=== PATIENT | male | born 1945 | race Caucasian/White ===

== ENCOUNTER 2016-07-17 11:51 | Observation (INO) | payer MEDICARE ==
[2016-07-17] MEDS ORDERED: SODIUM CHLORIDE 0.9% 1,000 ML IV STA (13:16)
[2016-07-17] MEDS ORDERED: IPRATROPIUM-ALBUTEROL 3 ML NEB INHALATION STA ×2 (13:19→15:30)
[2016-07-17] MEDS ORDERED: methylPREDNISolone SOD SUCCI 125 MG/2 ML VIAL IV STA ×2 (13:19→15:33)
--- NOTE | 2016-07-17 13:55 | ED ---
General Adult HPI - General Chief complaint: Shortness of Breath Stated complaint: GIL Time Seen by Provider: 07/17/16 12:55 Source: patient, RN notes reviewed Mode of arrival: ambulatory Limitations: no limitations - History of Present Illness Initial comments: Patient 70-year-old male who presents emergency room today with a chief complaint of increased shortness of breath. Patient does admit that he's had cough congestion over the last several weeks. He does admit to positive sputum production it's been green in color. Patient does admit that he has had symptoms of chest pain with the shortness breath at times. Denies any chest pain at this time. Patient denies any complaints currently at this time. Patient states he began using breathing treatments at home over the weekend with little relief the symptoms. Was advised by his family doctor if symptoms did not improve with breathing treatments to come to the emergency room. Patient denies any recent fever, chills, back pain, abdominal pain, nausea or vomiting, numbness or tingling, dysuria or hematuria, constipation or diarrhea, headaches or visual changes, or any other complaints. - Related Data Home Medications Medication Instructions Recorded Confirmed Aspirin 81 mg PO DAILY 07/17/16 07/17/16 Atorvastatin [Lipitor] 20 mg PO DAILY 07/17/16 07/17/16 Budesonide-Formot 160-4.5 Mcg 2 puff INHALATION RT-BID 07/17/16 07/17/16 [Symbicort 160-4.5 Mcg Inhaler] Metoprolol Tartrate [Metoprolol 25 mg PO DAILY 07/17/16 07/17/16 Tartrate] Allergies Allergy/AdvReac Type Severity Reaction Status Date / Time No Known Allergies Allergy Verified 07/17/16 12:42 Review of Systems ROS Statement: Those systems with pertinent positive or pertinent negative responses have been documented in the HPI. ROS Other: All systems not noted in ROS Statement are negative. Past Medical History Past Medical History: Chest Pain / Angina, COPD, Hyperlipidemia Additional Past Medical History / Comment(s): SVT History of Any Multi-Drug Resistant Organisms: None Reported Past Surgical History: Back Surgery, Joint Replacement Past Psychological History: No Psychological Hx Reported Smoking Status: Current every day smoker Past Alcohol Use History: Rare Past Drug Use History: None Reported General Exam - General Exam Comments Initial Comments: General: The patient is awake and alert, in no distress, and does not appear acutely ill. Eye: Pupils are equal, round and reactive to light, extra-ocular movements are intact. No nystagmus. There is normal conjunctiva bilaterally. No signs of icterus. Ears, nose, mouth and throat: There are moist mucous membranes and no oral lesions. Neck: The neck is supple, there is no tenderness or JVD. Cardiovascular: There is a regular rate and rhythm. No murmur, rub or gallop is appreciated. Respiratory: Lungs are clear to auscultation, respirations are non-labored, breath sounds are equal. No wheezes, stridor, rales, or rhonchi. Musculoskeletal: Normal ROM, no tenderness. Strength 5/5. Sensation intact. Pulses equal bilaterally 2+. Neurological: A&O x 3. CN II-XII intact, There are no obvious motor or sensory deficits. Coordination appears grossly intact. Speech is normal. Skin: Skin is warm and dry and no rashes or lesions are noted. Psychiatric: Cooperative, appropriate mood & affect, normal judgment. Limitations: no limitations Course Vital Signs 07/17/16 07/17/16 07/17/16 12:36 13:33 13:45 Temperature 97.5 F L Pulse Rate 70 68 69 Respiratory 22 Rate Blood Pressure 150/67 O2 Sat by Pulse 93 L Oximetry 07/17/16 13:57 Temperature Pulse Rate Respiratory 20 Rate Blood Pressure O2 Sat by Pulse Oximetry EKG Findings - EKG Comments: EKG Findings:: EKG performed at 1326: Shows sinus rhythm with first-degree AV block at 67 bpm. GA interval is 212. QRS 90. QT/QTC 372/393. No acute ST change. Medical Decision Making - Medical Decision Making The patient reexamined at this time shows no signs of stress currently. Does admit the breathing treatment has helped some of his symptoms is still having some cough congestion. Patient's x-ray reviewed shows no evidence for pneumonia. Patient given repeat breathing treatment still some somatic doesn't feel comfortable being discharged. Will be admitted for COPD exacerbation. Case discussed with attending physician Dr. Quick. - Lab Data Result diagrams: 07/17/16 13:57 07/17/16 13:57 Lab Results 07/17/16 07/17/16 07/17/16 Range/Units 13:57 13:57 13:57 WBC 9.9 (3.8-10.6) k/uL RBC 4.59 (4.30-5.90) m/uL Hgb 14.1 (13.0-17.5) gm/dL Hct 43.1 (39.0-53.0) % MCV 93.9 (80.0-100.0) fL MCH 30.7 (25.0-35.0) pg MCHC 32.7 (31.0-37.0) g/dL RDW 13.9 (11.5-15.5) % Plt Count 282 (150-450) k/uL Neutrophils % 66 % Lymphocytes % 21 % Monocytes % 7 % Eosinophils % 1 % Basophils % 1 % Neutrophils # 6.5 (1.3-7.7) k/uL Lymphocytes # 2.1 (1.0-4.8) k/uL Monocytes # 0.7 (0-1.0) k/uL Eosinophils # 0.1 (0-0.7) k/uL Basophils # 0.1 (0-0.2) k/uL PT (9.0-12.0) sec INR (<1.1) APTT (22.0-30.0) sec Sodium 142 (137-145) mmol/L Potassium 4.7 (3.5-5.1) mmol/L Chloride 103 (98-107) mmol/L Carbon Dioxide 27 (22-30) mmol/L Anion Gap 12 mmol/L BUN 16 (9-20) mg/dL Creatinine 0.92 (0.66-1.25) mg/dL Est GFR (MDRD) Af Amer >60 (>60 ml/min/1.73 sqM) Est GFR (MDRD) Non-Af >60 (>60 ml/min/1.73 sqM) Glucose 112 H (74-99) mg/dL Calcium 9.6 (8.4-10.2) mg/dL Magnesium 2.4 H (1.6-2.3) mg/dL Total Bilirubin 0.5 (0.2-1.3) mg/dL AST 30 (17-59) U/L ALT 50 (21-72) U/L Alkaline Phosphatase 98 (38-126) U/L Total Creatine Kinase 71 (55-170) U/L CK-MB (CK-2) 0.7 (0.0-2.4) ng/mL CK-MB (CK-2) Rel Index 1.0 Troponin I <0.012 (0.000-0.034) ng/mL Total Protein 7.4 (6.3-8.2) g/dL Albumin 3.9 (3.5-5.0) g/dL 07/17/16 Range/Units 13:57 WBC (3.8-10.6) k/uL RBC (4.30-5.90) m/uL Hgb (13.0-17.5) gm/dL Hct (39.0-53.0) % MCV (80.0-100.0) fL MCH (25.0-35.0) pg MCHC (31.0-37.0) g/dL RDW (11.5-15.5) % Plt Count (150-450) k/uL Neutrophils % % Lymphocytes % % Monocytes % % Eosinophils % % Basophils % % Neutrophils # (1.3-7.7) k/uL Lymphocytes # (1.0-4.8) k/uL Monocytes # (0-1.0) k/uL Eosinophils # (0-0.7) k/uL Basophils # (0-0.2) k/uL PT 10.5 (9.0-12.0) sec INR 1.0 (<1.1) APTT 26.0 (22.0-30.0) sec Sodium (137-145) mmol/L Potassium (3.5-5.1) mmol/L Chloride (98-107) mmol/L Carbon Dioxide (22-30) mmol/L Anion Gap mmol/L BUN (9-20) mg/dL Creatinine (0.66-1.25) mg/dL Est GFR (MDRD) Af Amer (>60 ml/min/1.73 sqM) Est GFR (MDRD) Non-Af (>60 ml/min/1.73 sqM) Glucose (74-99) mg/dL Calcium (8.4-10.2) mg/dL Magnesium (1.6-2.3) mg/dL Total Bilirubin (0.2-1.3) mg/dL AST (17-59) U/L ALT (21-72) U/L Alkaline Phosphatase (38-126) U/L Total Creatine Kinase (55-170) U/L CK-MB (CK-2) (0.0-2.4) ng/mL CK-MB (CK-2) Rel Index Troponin I (0.000-0.034) ng/mL Total Protein (6.3-8.2) g/dL Albumin (3.5-5.0) g/dL Disposition Clinical Impression: COPD exacerbation, Hypoxia Disposition: ADMITTED IP TO THIS HOSP Condition: Stable Time of Disposition: 15:13
[2016-07-17 14:20] LABS: Basophils # (A) 0.1 k/uL (0-0.2); Basophils % (A) 1 %; CHCM 33.1; Eosinophils # (A) 0.1 k/uL (0-0.7); Eosinophils % (A) 1 %; HCT 43.1 % (39.0-53.0); HGB 14.1 gm/dL (13.0-17.5); Luc # (Auto) 0.43; Luc % (Auto) 4; Lymphocytes # (A) 2.1 k/uL (1.0-4.8); Lymphocytes % (A) 21 %; MCH 30.7 pg (25.0-35.0); MCHC 32.7 g/dL (31.0-37.0); MCV 93.9 fL (80.0-100.0); Mean Platelet Volume 7.7; Monocytes # (A) 0.7 k/uL (0-1.0); Monocytes % (A) 7 %; Neutrophils # (A) 6.5 k/uL (1.3-7.7); Neutrophils % (A) 66 %; RBC 4.59 m/uL (4.30-5.90); RDW 13.9 % (11.5-15.5); WBC 9.9 k/uL (3.8-10.6)
--- NOTE | 2016-07-17 14:24 | XR ---
EXAMINATION TYPE: XR chest 2V DATE OF EXAM: 07/17/2016 2:07 PM COMPARISON: Prior chest x-ray 31 Aug 2012, at 05 March 2016 HISTORY: Chest pain, shortness of breath, COPD TECHNIQUE: Frontal and lateral views of the chest are obtained on 3 images. FINDINGS: Prominent lung volumes compatible with underlying emphysema. The aorta is dense. No pneumo thorax or pleural effusion. Interstitium is increased. Biapical pleural thickening is present. Osteon ecrosis changes are present within the humeral heads, finding is chronic. There are overlying cardiac leads. IMPRESSION: No acute cardiopulmonary process.
[2016-07-17 14:31] LABS: ALT 50 U/L (21-72); AST 30 U/L (17-59); Alkaline Phosphatase 98 U/L (38-126); Anion Gap 12 mmol/L; Blood Urea Nitrogen 16 mg/dL (9-20); Calcium 9.6 mg/dL (8.4-10.2); Carbon Dioxide 27 mmol/L (22-30); Chloride 103 mmol/L (98-107); Glucose 112 mg/dL (74-99); Magnesium 2.4 mg/dL (1.6-2.3); Non-African American GFR(MDRD) >60 (>60 ml/min/1.73 sqM); Potassium 4.7 mmol/L (3.5-5.1); Sodium 142 mmol/L (137-145); Total Bilirubin 0.5 mg/dL (0.2-1.3); Total Protein 7.4 g/dL (6.3-8.2)
[2016-07-17 14:34] LABS: Prothrombin Time 10.5 sec (9.0-12.0)
[2016-07-17 14:41] LABS: Creatine Kinase 71 U/L (55-170)
[2016-07-17 14:54] LABS: Creatine Kinase MB 0.7 ng/mL (0.0-2.4); Troponin I <0.012 ng/mL (0.000-0.034)
[2016-07-17] MEDS ORDERED: SODIUM CHLORIDE 0.9% 1,000 ML IV ONE (15:33)
[2016-07-17] MEDS: LEVOFLOXACIN 500 MG TAB PO SCH (17:14)
[2016-07-17] MEDS: methylPREDNISolone SOD SUCCI 125 MG/2 ML VIAL IV SCH (17:15)
[2016-07-17] MEDS: SYMBICORT 160-4.5 MCG INHALER INHALATION SCH (20:06)
[2016-07-17] MEDS: NICOTINE 21MG/24HR PATCH TRANSDERM SCH (21:21)
[2016-07-18] MEDS: methylPREDNISolone SOD SUCCI 125 MG/2 ML VIAL IV SCH ×5 (06:12→23:34)
[2016-07-18 06:52] LABS: Glucose,Whole Blood 146 mg/dL (75-99)
--- NOTE | 2016-07-18 07:38 | HP ---
DATE OF ADMISSION: CHIEF COMPLAINT: Shortness of breath. HISTORY OF PRESENT ILLNESS: Mr. Golden is a 70-year-old male with known history of COPD, active nicotine addiction 2 packs per day and hyperlipidemia and history of SVT came to the hospital with complaints of increased shortness of breath for the past 2 weeks and patient does have a cough with congestion over the last 2 weeks and sputum production which is green to yellowish in color. The patient continues to smoke about 2 packs per day. Patient follows with Dr. Robison as an outpatient. Patient began using breathing treatments at home over the weekend, but without relief of his symptoms. Patient came to the ER for further evaluation. Otherwise, the patient denied any fever or chills. No recent illnesses like ( ) symptoms and no recent travel. No sick contacts at home. Denied any nausea, vomiting or abdominal pain. No hematuria or dysuria. No diarrhea. No other issues noted at this time. In the ER, the patient was given breathing treatments and steroids IV. Patient clinically slightly improved. Otherwise, patient does have significant wheezing and was admitted to the hospital for further management. REVIEW OF SYSTEMS: CONSTITUTIONAL: No fever. No chills. Patient denied any malaise. RESPIRATORY: Patient does have cough with greenish sputum production and short of breath. CARDIOVASCULAR: No chest pain. The patient does have short of breath. No leg swelling. ABDOMEN: No nausea, vomiting or abdominal pain. GENITOURINARY: Negative. ENDOCRINE: Negative. PSYCHIATRY: Negative. SKIN: Negative. All other 14-point review of systems negative except as above. PAST MEDICAL HISTORY: Chest pain/angina, COPD, hyperlipidemia and SVT. PAST SURGICAL HISTORY: Back surgery, joint replacement. PSYCHOSOCIAL HISTORY: None. SOCIAL HISTORY: Patient is currently an everyday smoker; smokes about 2 packs per day. Occasional alcohol use. Patient was a heavy alcohol user in the past. Denied any drugs or IVDU. FAMILY HISTORY: History of hypertension. No history of diabetes mellitus or premature heart disease in the family. ALLERGIES: No known drug allergies. Home medications include: 1. Aspirin. 2. Atorvastatin. 3. Symbicort. 4. Metoprolol. PHYSICAL EXAMINATION: A 70-year-old male lying in bed comfortably, awake, alert and oriented x3, appears to be in no apparent distress. VITALS: Blood pressure is 142/65, pulse is 70, respirations 18, temperature afebrile, pulse ox 95% on room air. HEENT: Atraumatic, normocephalic. Neck is supple. No JVD. CVS: S1, S2 heard. No murmurs, no gallop. LUNGS: Bilateral air entry diminished and diffuse wheezing positive and rhonchi positive. Nonlabored breathing. ABDOMEN: Soft, nontender. Bowel sounds present. MEAT STUFFER: Awake, alert, oriented x3. No focal neurologic deficits. Cranial nerves grossly intact. EXTREMITIES: No edema. Pulses palpable bilaterally. No clubbing or cyanosis. PSYCHIATRIC: Cooperative. LABORATORY DATA: WBC 9.9, hemoglobin 14.1, platelets 282. INR 1.0. Sodium 142, potassium 4.1, chloride 103, bicarb is 27. BUN 16, creatinine 0.92. Magnesium 2.4. Blood sugar is 112. Albumin 3.9. Chest x-ray no acute cardiopulmonary process. IMPRESSION: 1. Acute chronic obstructive pulmonary disease exacerbation. 2. Acute tracheobronchitis. 3. Nicotine addiction, 2 packs per day, active. 4. Degenerative joint disease. 5. Chest pain/angina. 6. Hyperlipidemia. 7. Deep venous thrombosis prophylaxis with heparin subcutaneous. DISCUSSION AND PLAN: This 70-year-old male admitted to the hospital with acute COPD exacerbation . Will continue with albuterol Atrovent breathing treatments and continue with the methylprednisolone and oxygen therapy as needed. Will continue with DVT prophylaxis. Further recommendations based on the clinical course. Pulmonary has been consulted for further evaluation.
[2016-07-18] MEDS: METOPROLOL TARTRATE 25 MG TAB PO SCH (09:24)
[2016-07-18] MEDS: ATORVASTATIN 20 MG TAB PO SCH (09:24)
[2016-07-18] MEDS: ASPIRIN 81 MG CHEW PO SCH (09:24)
[2016-07-18] MEDS: HEPARIN SODIUM,PORCINE 5,000 UNIT/ML 1 ML VIAL SQ SCH ×4 (09:26→23:35)
[2016-07-18] MEDS: IPRATROPIUM-ALBUTEROL 3 ML NEB INHALATION PRN ×2 (10:57→19:57)
[2016-07-18 12:05] LABS: Glucose,Whole Blood 259 mg/dL (75-99)
--- NOTE | 2016-07-18 13:55 | P.CNPUL ---
History of Present Illness Consult date: 07/18/16 Requesting physician: Mayo Galan Reason for consult: dyspnea, COPD Chief complaint: Shortness of breath History of present illness: This is a very pleasant 70-year-old gentleman who follows with Dr. Peres as his primary care physician. He has a history of hypertension, hyperlipidemia, SVT, osteoarthritis. He also has a history of chronic and ongoing tobacco dependence and chronic obstructive pulmonary disease. He follows with Dr. Robison in our office for the same. He was last seen there about 5 months ago and has been stable. He is treated with Symbicort and albuterol. he presented here yesterday with complaints of increasing shortness of breath, cough and congestion. He states he has noticed increased shortness of breath with minimal exertion. 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 He also feels the cold air outside history GERD his worsening shortness of breath. He is seen today in the observation unit and consultation. he is awake and alert in no acute distress. He feels somewhat better today as compared to yesterday. His chest x-ray did not reveal any acute pulmonary process. He has been maintaining good O2 saturations in the mid 90s on room air. He is afebrile. No leukocytosis. Review of Systems 14 point review of system was conducted. All negative other than as mentioned the HPI. Past Medical History Past Medical History: Chest Pain / Angina, COPD, Hyperlipidemia, Myocardial Infarction (NC), Osteoarthritis (OA), Pneumonia Additional Past Medical History / Comment(s): SVT-PER PAST MEDICAL RECORD-PT NOT AWARE, CATARACTS PREET Last Myocardial Infarction Date:: 2008 History of Any Multi-Drug Resistant Organisms: None Reported Past Surgical History: Back Surgery, Heart Catheterization, Hernia Repair, Joint Replacement Additional Past Surgical History / Comment(s): microlaryngoscopy w/ lt vocal cord bx-neg, bronch-lung bx-neg, lt inguinal hernia, preet hip replacments Past Anesthesia/Blood Transfusion Reactions: No Reported Reaction Past Psychological History: No Psychological Hx Reported Additional Psychological History / Comment(s): pt lives alone in own home that has 3 steps into house has 1 cat, 1 dog. 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 past heavy etoh use but quit heavy drinking 20 years ago now only drinks occ on weekends. Past Drug Use History: None Reported - Past Family History Mother Family Medical History: COPD, Diabetes Mellitus Father Family Medical History: Diabetes Mellitus Brother(s) Family Medical History: Cancer Additional Family Medical History / Comment(s): leukemia Medications and Allergies Home Medications Medication Instructions Recorded Confirmed Type Aspirin 81 mg PO DAILY 07/17/16 07/17/16 History Atorvastatin [Lipitor] 20 mg PO DAILY 07/17/16 07/17/16 History Budesonide-Formot 160-4.5 Mcg 2 puff INHALATION RT-BID 07/17/16 07/17/16 History [Symbicort 160-4.5 Mcg Inhaler] Metoprolol Tartrate [Metoprolol 25 mg PO DAILY 07/17/16 07/17/16 History Tartrate] Allergies Allergy/AdvReac Type Severity Reaction Status Date / Time No Known Allergies Allergy Verified 07/17/16 12:42 Physical Exam Vitals: Vital Signs Temp Pulse Pulse Resp BP BP BP 07/18/16 11:44 98.2 F 80 18 146/65 07/18/16 10:57 72 07/18/16 08:00 98.3 F 81 18 138/60 07/18/16 04:00 97.7 F 76 16 140/67 07/18/16 00:00 78 16 144/70 07/17/16 20:00 16 07/17/16 19:42 97.7 F 69 16 126/61 07/17/16 16:42 76 07/17/16 16:24 76 07/17/16 16:15 97.6 F 70 18 142/65 07/17/16 15:54 76 18 158/74 Pulse Ox 07/18/16 11:44 94 L 07/18/16 10:57 07/18/16 08:00 93 L 07/18/16 04:00 93 L 07/18/16 00:00 90 L 07/17/16 20:00 07/17/16 19:42 94 L 07/17/16 16:42 07/17/16 16:24 93 L 07/17/16 16:15 95 07/17/16 15:54 95 Intake and Output 07/17/16 07/18/16 07/18/16 22:59 06:59 14:59 Intake Total 240 880 Balance 240 880 Intake: Oral 240 880 Other: Voiding Method Toilet Toilet Toilet # Voids 1 Weight 75.3 kg GENERAL EXAM: Alert, active, comfortable in no apparent distress. HEAD: Normocephalic. EYES: Normal reaction of pupils, equal size. NOSE: Clear with pink turbinates. THROAT: No erythema or exudates. NECK: No masses, no JVD. CHEST: No chest wall deformity. LUNGS: Equal air entry with faint end expiratory wheeze. Diminished. CVS: S1 and S2 normal with no audible murmurs, regular rhythm. ABDOMEN: No hepatosplenomegaly, normal bowel sounds, no guarding or rigidity. SPINE: No scoliosis or deformity SKIN: No rashes CENTRAL NERVOUS SYSTEM: No focal deficits, tone is normal in all 4 extremities. Extremities: There is no significant peripheral edema. No clubbing, no cyanosis. Peripheral pulses are intact. Results - Laboratory Findings CBC and BMP: 07/17/16 13:57 07/17/16 13:57 PT/INR, D-dimer PT 10.5 sec (9.0-12.0) 07/17/16 13:57 INR 1.0 (<1.1) 07/17/16 13:57 Abnormal lab findings: Abnormal Labs 07/18/16 07/18/16 06:48 12:03 POC Glucose (mg/dL) 146 H 259 H - Diagnostic Findings Chest x-ray: image reviewed (No acute cardiopulmonary process) Assessment and Plan Plan: Impression: #1 Acute exacerbation of chronic obstructive pulmonary disease. #2 Chronic and ongoing tobacco dependence. #3 Hyperlipidemia. #4 Osteoarthritis. #5 History of SVT. Plan: The patient was seen and evaluated by Dr. Robison. The patient had been initiated on bronchodilators, Symbicort, IV Solu-Medrol and empiric antibiotics in the form of Levaquin. The patient is educated regarding the importance of complete smoking cessation. NicoDerm patch has been applied. The patient could be discharged home with his current medications including a prednisone taper and complete his course of antibiotics. He'll be seen in our office in 1- 2 weeks' time in follow-up. He is however encouraged to call sooner with any recurrence of symptoms or other questions or concerns.
[2016-07-18 15:05] VITALS: BMI 24.5
[2016-07-18] MEDS: SYMBICORT 160-4.5 MCG INHALER INHALATION SCH ×2 (15:53→19:58)
[2016-07-18 17:07] LABS: Glucose,Whole Blood 123 mg/dL (75-99)
[2016-07-18] MEDS: NICOTINE 21MG/24HR PATCH TRANSDERM SCH (18:10)
[2016-07-18] MEDS: LEVOFLOXACIN 500 MG TAB PO SCH (18:10)
[2016-07-18 21:02] LABS: Glucose,Whole Blood 190 mg/dL (75-99)
[2016-07-19] MEDS: methylPREDNISolone SOD SUCCI 125 MG/2 ML VIAL IV SCH ×2 (05:51→12:02)
[2016-07-19 07:12] LABS: Glucose,Whole Blood 154 mg/dL (75-99)
[2016-07-19] MEDS: METOPROLOL TARTRATE 25 MG TAB PO SCH (08:35)
[2016-07-19] MEDS: ATORVASTATIN 20 MG TAB PO SCH (08:35)
[2016-07-19] MEDS: ASPIRIN 81 MG CHEW PO SCH (08:35)
[2016-07-19] MEDS: HEPARIN SODIUM,PORCINE 5,000 UNIT/ML 1 ML VIAL SQ SCH ×2 (08:35→08:38)
[2016-07-19] MEDS: IPRATROPIUM-ALBUTEROL 3 ML NEB INHALATION PRN (08:37)
[2016-07-19] MEDS: SYMBICORT 160-4.5 MCG INHALER INHALATION SCH (08:37)
--- NOTE | 2016-07-19 11:09 | P.PN ---
Subjective Principal diagnosis: acute exacerbation of chronic obstructive pulmonary disease This is a very pleasant 70-year-old gentleman who follows with Dr. Peres as his primary care physician. He has a history of hypertension, hyperlipidemia, SVT, osteoarthritis. He also has a history of chronic and ongoing tobacco dependence and chronic obstructive pulmonary disease. He follows with Dr. Robison in our office for the same. He was last seen there about 5 months ago and has been stable. He is treated with Symbicort and albuterol. he presented here yesterday with complaints of increasing shortness of breath, cough and congestion. He states he has noticed increased shortness of breath with minimal exertion. 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 He also feels the cold air outside history GERD his worsening shortness of breath. He is seen today in the observation unit and consultation. he is awake and alert in no acute distress. He feels somewhat better today as compared to yesterday. His chest x-ray did not reveal any acute pulmonary process. He has been maintaining good O2 saturations in the mid 90s on room air. He is afebrile. No leukocytosis. Patient was reevaluated today on 07/19/2016, he is doing quite well, no cough no wheezing no shortness of breath. On physical examinations sounded fairly clear. Hence I plan to clear the patient for discharge planning today, and he will be discharged on his usual meds including Levaquin and prednisone burst and taper, DuoNeb updrafts, and Symbicort. I plan to see the patient next week in my office for follow-up. Objective - Vital Signs Vital signs: Vital Signs Temp 97.5 F L 07/19/16 07:33 Pulse 70 07/19/16 08:40 Resp 18 07/19/16 08:00 BP 124/69 07/19/16 07:33 Pulse Ox 94 L 07/19/16 08:40 Intake & Output 07/18/16 07/19/16 07/19/16 18:59 06:59 18:59 Intake Total 2119 240 Balance 2119 240 Weight 75.3 kg Intake: Oral 2119 240 Other: Voiding Method Toilet Toilet Toilet # Voids 1 - Exam Physical Exam: Revealed a 70-year-old in no distress HEENT:[Neck is supple.] [No neck masses.] [No thyromegaly.] [No JVD.] Chest: [Clear throughout, no crackles, no rhonchi, no wheezes.] Cardiac Exam: [Normal S1 and S2, no S3 gallop, no murmur.] Abdomen: [Soft, nontender, no megaly, no rebound, no guarding, normal bowel sounds.] Extremities: [No clubbing, no edema, no cyanosis.] Neurological Exam: [No focal neurologic deficit.] - Labs CBC & Chem 7: 07/17/16 13:57 07/17/16 13:57 Labs: Abnormal Lab Results - Last 24 Hours (Table) 07/18/16 07/18/16 07/18/16 Range/Units 12:03 17:05 20:57 POC Glucose (mg/dL) 259 H 123 H 190 H (75-99) mg/dL 07/19/16 Range/Units 07:10 POC Glucose (mg/dL) 154 H (75-99) mg/dL Assessment and Plan Plan: #1 Acute exacerbation of chronic obstructive pulmonary disease. #2 Chronic and ongoing tobacco dependence. #3 Hyperlipidemia. #4 Osteoarthritis. #5 History of SVT. Recommendation: Continue present meds, patient could be discharged home today and follow-up with me on outpatient basis next week. I have left prescriptions on the chart for DuoNeb, Symbicort, Levaquin, prednisone burst and taper over 2 weeks. Cleared for discharge today. Time with Patient: Less than 30
[2016-07-19 11:31] VITALS: BP 139/66; RESP 16; TEMP 98
[2016-07-19 11:49] LABS: Glucose,Whole Blood 185 mg/dL (75-99)
[2016-07-19 12:40] VITALS: PULSE 74
--- NOTE | 2016-07-19 14:23 | PN ---
DATE OF SERVICE: 07/17/2016 INTERVAL HISTORY: Mr. Golden is a 70-year-old male with a known history of COPD, active nicotine addiction, SVT came to the hospital with complaints of worsening shortness of breath. Currently being treated for acute COPD exacerbation. The patient starting to improve clinically. Otherwise, the patient is still wheezing and not at baseline. No fever. No chills. No acute overnight issues. REVIEW OF SYSTEMS: CONSTITUTIONAL: No fever. No chills. RESPIRATORY: No cough or sputum production. No worsening short of breath. CARDIOVASCULAR: No chest pain. No palpitations. No leg swelling. ABDOMEN: No nausea, vomiting or abdominal pain. GENITOURINARY: Negative. ENDOCRINE: Negative. SKIN: Negative. All other fourteen-point review of systems negative except as above. Current medications are reviewed. PHYSICAL EXAMINATION: A 70 -year-old male lying in bed comfortably, awake, alert and oriented times three. Appears to be in no apparent distress. VITALS: Blood pressure is 116/62, pulse is 71, respirations 18, temperature afebrile, pulse ox 93% on room air. HEENT: Atraumatic, normocephalic. Neck is supple. No JVD. CVS: S1, S2 heard. No murmurs, no gallop. LUNGS: Bilateral diminished air entry and diffuse wheezing positive. No rhonchi, nonlabored breathing. ABDOMEN: Soft, nontender. Bowel sounds present. STRATEGIC MANAGER: Awake, alert and oriented times three. No focal deficits. EXTREMITIES: No edema. Pulses palpable bilaterally. PSYCHIATRY: Cooperative. Laboratory data reviewed. IMPRESSION: 1. Acute chronic obstructive pulmonary disease exacerbation. 2. Acute tracheobronchitis. 3. Nicotine addiction, 2 packs per day. 4. Degenerative joint disease. 5. Chest pain/angina. 6. ( ). 7. History of supraventricular tachycardia. 8. Deep venous thrombosis prophylaxis with heparin subcu. Discussion and plan: The patient will be continued on current management. IV steroids and breathing treatments and follow up closely. Titrate down to room air oxygen and further recommendations based on clinical course. Pulmonary has seen the patient. Anticipate discharge in the next 24 hours.
[2016-07-19] MEDS: NICOTINE 21MG/24HR PATCH TRANSDERM SCH (16:17)
--- NOTE | 2016-07-20 17:19 | DS ---
DATE OF ADMISSION: 07/17/2016 DATE OF DISCHARGE: 07/19/2016 DISCHARGE DIAGNOSES: 1. Acute chronic obstructive pulmonary disease exacerbation. 2. Acute tracheobronchitis. 3. Nicotine addiction. 4. Degenerative joint disease. 5. Chest pain/angina. 6. History of supraventricular tachycardia. 7. Hyperlipidemia. 8. Deep venous thrombosis prophylaxis. HOSPITAL COURSE: Mr. Golden is a 70-year-old male with a known history of COPD and multiple medical problems and active smoking admitted to the hospital for worsening shortness of breath for the past 2 weeks and alleged sputum production. Patient was started on antibiotics in the form of levofloxacin and continued on methylprednisolone, breathing treatments and Symbicort. The patient did improve clinically. Coughing is much better now. The patient was advised to complete the antibiotic course and patient is being given steroids for a total of 5 days and recommended to follow up with Dr. Robison in the clinic and also primary care physician. Patient was advised and counseled extensively for smoking cessation. Otherwise, the patient is stable to be discharged home. DISCHARGE PHYSICAL EXAMINATION: A 70-year-old male lying in the bed; comfortable, awake, alert and oriented x3. VITALS: Blood pressure 139/66, pulse is 63, respirations 16, temperature afebrile, pulse ox 95% on room air. LUNGS: Bilateral air entry is present. Expiratory wheezing positive. Air entry is much improved. Laboratory data reviewed. Discharge physical examination done. Discharge medications include: 1. Aspirin 81 mg p.o. daily. 2. Lipitor 20 mg p.o. daily. 3. Symbicort 2 puffs inhalation b.i.d. 4. Metoprolol 25 mg p.o. daily. 5. Albuterol Inhaler 2 puffs every 6 hourly p.r.n. for short of breath. 6. Albuterol nebulizer 2.5 mg every 6 hourly p.r.n. 7. Levofloxacin 500 mg p.o. q.24 hours, 4 tabs for 4 days. 8. Prednisone 40 mg daily for 5 days. Patient will be discharged home and follow with Dr. Britni Peres in 1 to [address] Britni Peres. Follow up with Dr. Robison in 1 week. Home with self-care, activity as tolerated, heart-healthy diet. Smoking cessation has been counseled extensively.
== END 2016-07-19 16:30 | disposition home or self-care (01) ==
LOC: EC 11:51 → 3OBS 15:31
PROVIDERS: ADMIT Internal Medicine; ATTEND Internal Medicine
DX: J44.0 Chronic obstructive pulmonary disease with (acute) lower respiratory infection (principal); J20.9 Acute bronchitis, unspecified; F17.200 Nicotine dependence, unspecified, uncomplicated; J44.1 Chronic obstructive pulmonary disease with (acute) exacerbation; I20.9 Angina pectoris, unspecified; E78.5 Hyperlipidemia, unspecified; I10 Essential (primary) hypertension; M19.90 Unspecified osteoarthritis, unspecified site; I47.1 Supraventricular tachycardia; Z79.82 Long term (current) use of aspirin; Z79.899 Other long term (current) drug therapy; Z79.51 Long term (current) use of inhaled steroids; R09.02 Hypoxemia; I25.2 Old myocardial infarction; Z82.49 Family history of ischemic heart disease and other diseases of the circulatory system; Z83.3 Family history of diabetes mellitus; Z80.6 Family history of leukemia
CPT/HCPCS: 96374; 99285; 36415; 94640 ×6; 94760; 94644; 93005; 80053; 82550; 82553; 83735; 84484; 85025; 85610; 85730; 71020; G0378 ×3; S4990 ×3; J1644; J2930 ×3; 96372; 96376

== ENCOUNTER 2018-07-23 16:40 | Inpatient (IN) | payer MEDICARE ==
--- NOTE | 2018-07-23 16:54 | ED ---
SOB HPI - General Chief Complaint: Shortness of Breath Stated Complaint: GIL Time Seen by Provider: 07/23/18 16:53 Source: patient, RN notes reviewed, old records reviewed Mode of arrival: ambulatory Limitations: no limitations - History of Present Illness Initial Comments: This is a 72-year-old male the ER for evaluation. Patient was essay for evaluat ion regarding shortness of breath with cough and congestion history of pneumonia history of COPD. Patient coming in today for further evaluation management. Worsening symptoms 2 days, poor strain secondary to clinical condition, history obtained from EMS MD Complaint: shortness of breath, cough -: days(s) (3) Radiation: other (No pain) Severity: severe (Shortness of breath hypoxia) Severity scale (1-10): 9 Consistency: constant Improves With: nothing Worsens With: exertion, movement Known History Of: COPD Context: recent URI Associated Symptoms: pain with inspiration, fever, cough, sputum production Treatments Prior to Arrival: none - Related Data Home Medications Medication Instructions Recorded Confirmed Aspirin 81 mg PO DAILY 07/17/16 07/23/18 Atorvastatin [Lipitor] 20 mg PO DAILY 07/17/16 07/23/18 Budesonide-Formot 160-4.5 Mcg 2 puff INHALATION RT-BID 07/17/16 07/23/18 [Symbicort 160-4.5 Mcg Inhaler] Albuterol Inhaler [Ventolin Hfa 2 puff INHALATION RT-Q6H PRN 07/23/18 07/23/18 Inhaler] Albuterol Nebulized [Ventolin 2.5 mg INHALATION RT-Q6H 07/23/18 07/23/18 Nebulized] Doxycycline Hyclate 100 mg PO BID 07/23/18 07/23/18 Ipratropium-Albuterol Nebulize 3 ml INHALATION RT-Q4H 07/23/18 07/23/18 [Duoneb 0.5 mg-3 mg/3 ml Soln] Metoprolol Tartrate [Lopressor] 25 mg PO DAILY 07/23/18 07/23/18 predniSONE See Taper PO DAILY 07/23/18 07/23/18 Allergies Allergy/AdvReac Type Severity Reaction Status Date / Time Penicillins Allergy Unknown Verified 07/23/18 17:20 Review of Systems ROS Statement: Those systems with pertinent positive or pertinent negative responses have been documented in the HPI. ROS Other: All systems not noted in ROS Statement are negative. Past Medical History Past Medical History: Chest Pain / Angina, COPD, Hyperlipidemia, Myocardial Infarction (NE), Osteoarthritis (OA), Pneumonia Additional Past Medical History / Comment(s): SVT-PER PAST MEDICAL RECORD-PT NOT AWARE, CATARACTS PREET Last Myocardial Infarction Date:: 2008 History of Any Multi-Drug Resistant Organisms: None Reported Past Surgical History: Back Surgery, Heart Catheterization, Hernia Repair, Joint Replacement Additional Past Surgical History / Comment(s): microlaryngoscopy w/ lt vocal cord bx-neg, bronch-lung bx-neg, lt inguinal hernia, preet hip replacments Past Anesthesia/Blood Transfusion Reactions: No Reported Reaction Past Psychological History: No Psychological Hx Reported Smoking Status: Current every day smoker Past Alcohol Use History: Heavy Past Drug Use History: None Reported - Past Family History Mother Family Medical History: COPD, Diabetes Mellitus Father Family Medical History: Diabetes Mellitus Brother(s) Family Medical History: Cancer Additional Family Medical History / Comment(s): leukemia General Exam Limitations: no limitations General appearance: alert, anxious, in distress Head exam: Present: atraumatic, normocephalic, normal inspection Eye exam: Present: normal appearance, PERRL, EOMI. Absent: scleral icterus, conjunctival injection, periorbital swelling ENT exam: Present: normal exam, mucous membranes moist Neck exam: Present: normal inspection. Absent: tenderness, meningismus, lymphadenopathy Respiratory exam: Present: respiratory distress, wheezes, accessory muscle use, decreased breath sounds, prolonged expiratory. Absent: rales, rhonchi, stridor Cardiovascular Exam: Present: normal rhythm, tachycardia, normal heart sounds. Absent: systolic murmur, diastolic murmur, rubs, gallop, clicks GI/Abdominal exam: Present: soft, normal bowel sounds. Absent: distended, tenderness, guarding, rebound, rigid Extremities exam: Present: normal inspection, full ROM, normal capillary refill. Absent: tenderness, pedal edema, joint swelling, calf tenderness Back exam: Present: normal inspection Neurological exam: Present: alert, oriented X3, CN II-XII intact Psychiatric exam: Present: normal affect, normal mood Skin exam: Present: warm, dry, intact, normal color. Absent: rash Course Vital Signs 07/23/18 07/23/18 07/23/18 16:43 16:44 17:11 Temperature 99.7 F H 102.3 F H Pulse Rate 107 H Respiratory 40 H 40 H Rate Blood Pressure 162/58 O2 Sat by Pulse 93 L Oximetry 07/23/18 07/23/18 18:13 18:32 Temperature Pulse Rate 109 H 107 H Respiratory Rate Blood Pressure O2 Sat by Pulse Oximetry Medical Decision Making - Medical Decision Making 72 male the ER for evaluation. Patient comes in shortness of breath really on BiPAP secondary hypoxia work of breathing. Patient with fever as well we will treat empirically for pneumonia. - Lab Data Result diagrams: 07/23/18 17:01 07/23/18 17:01 Lab Results 07/23/18 07/23/18 07/23/18 Range/Units 17: 17:01 17:01 WBC 7.5 (3.8-10.6) k/uL RBC 4.84 (4.30-5.90) m/uL Hgb 14.4 (13.0-17.5) gm/dL Hct 45.1 (39.0-53.0) % MCV 93.2 (80.0-100.0) fL MCH 29.8 (25.0-35.0) pg MCHC 32.0 (31.0-37.0) g/dL RDW 15.5 (11.5-15.5) % Plt Count 166 (150-450) k/uL Neutrophils % 83 % Lymphocytes % 7 % Monocytes % 8 % Eosinophils % 1 % Basophils % 0 % Neutrophils # 6.2 (1.3-7.7) k/uL Lymphocytes # 0.5 L (1.0-4.8) k/uL Monocytes # 0.6 (0-1.0) k/uL Eosinophils # 0.1 (0-0.7) k/uL Basophils # 0.0 (0-0.2) k/uL PT (9.0-12.0) sec INR (<1.2) APTT (22.0-30.0) sec Sodium 134 L (137-145) mmol/L Potassium 4.3 (3.5-5.1) mmol/L Chloride 100 (98-107) mmol/L Carbon Dioxide 22 (22-30) mmol/L Anion Gap 12 mmol/L BUN 18 (9-20) mg/dL Creatinine 0.96 (0.66-1.25) mg/dL Est GFR (CKD-EPI)AfAm >90 (>60 ml/min/1.73 sqM) Est GFR (CKD-EPI)NonAf 80 (>60 ml/min/1.73 sqM) Glucose 185 H (74-99) mg/dL Calcium 9.2 (8.4-10.2) mg/dL Magnesium 1.8 (1.6-2.3) mg/dL Total Bilirubin 0.6 (0.2-1.3) mg/dL AST 27 (17-59) U/L ALT 38 (21-72) U/L Alkaline Phosphatase 68 (38-126) U/L Troponin I (0.000-0.034) ng/mL NT-Pro-B Natriuret Pep 152 pg/mL Total Protein 6.6 (6.3-8.2) g/dL Albumin 3.9 (3.5-5.0) g/dL 07/23/18 07/23/18 Range/Units 17:01 17:01 WBC (3.8-10.6) k/uL RBC (4.30-5.90) m/uL Hgb (13.0-17.5) gm/dL Hct (39.0-53.0) % MCV (80.0-100.0) fL MCH (25.0-35.0) pg MCHC (31.0-37.0) g/dL RDW (11.5-15.5) % Plt Count (150-450) k/uL Neutrophils % % Lymphocytes % % Monocytes % % Eosinophils % % Basophils % % Neutrophils # (1.3-7.7) k/uL Lymphocytes # (1.0-4.8) k/uL Monocytes # (0-1.0) k/uL Eosinophils # (0-0.7) k/uL Basophils # (0-0.2) k/uL PT 10.5 (9.0-12.0) sec INR 1.0 (<1.2) APTT 25.1 (22.0-30.0) sec Sodium (137-145) mmol/L Potassium (3.5-5.1) mmol/L Chloride (98-107) mmol/L Carbon Dioxide (22-30) mmol/L Anion Gap mmol/L BUN (9-20) mg/dL Creatinine (0.66-1.25) mg/dL Est GFR (CKD-EPI)AfAm (>60 ml/min/1.73 sqM) Est GFR (CKD-EPI)NonAf (>60 ml/min/1.73 sqM) Glucose (74-99) mg/dL Calcium (8.4-10.2) mg/dL Magnesium (1.6-2.3) mg/dL Total Bilirubin (0.2-1.3) mg/dL AST (17-59) U/L ALT (21-72) U/L Alkaline Phosphatase (38-126) U/L Troponin I <0.012 (0.000-0.034) ng/mL NT-Pro-B Natriuret Pep pg/mL Total Protein (6.3-8.2) g/dL Albumin (3.5-5.0) g/dL - EKG Data -: EKG Interpreted by Me (EKG shows sinus tachycardia rate 110, IN 164, QRS 80, QTC 444) - Radiology Data Radiology results: report reviewed (Chest x-ray shows edema and effusion possible likely pneumonia), image reviewed Critical Care Time Critical Care Time: Yes Total Critical Care Time: 31 Disposition Clinical Impression: Congestive heart failure, Acute pulmonary edema, Community acquired pneumonia, Acute exacerbation of chronic obstructive airways disease, Hypoxia Disposition: ADMITTED IP TO THIS [facility] Condition: Serious Is patient prescribed a controlled substance at d/c from ED?: No Referrals: Britni Peres MD [Primary Care Provider] - 1-2 days
[2018-07-23 17:13] LABS: Basophils % (A) 0 %; Eosinophils # (A) 0.1 k/uL (0-0.7); Eosinophils % (A) 1 %; HCT 45.1 % (39.0-53.0); HGB 14.4 gm/dL (13.0-17.5); Lymphocytes # (A) 0.5 k/uL (1.0-4.8); Lymphocytes % (A) 7 %; MCH 29.8 pg (25.0-35.0); MCV 93.2 fL (80.0-100.0); Monocytes # (A) 0.6 k/uL (0-1.0); Monocytes % (A) 8 %; Neutrophils # (A) 6.2 k/uL (1.3-7.7); Neutrophils % (A) 83 %; Platelet Count 166 k/uL (150-450); RBC 4.84 m/uL (4.30-5.90); RDW 15.5 % (11.5-15.5); WBC 7.5 k/uL (3.8-10.6)
[2018-07-23 17:20] LABS: ALT 38 U/L (21-72); AST 27 U/L (17-59); Albumin 3.9 g/dL (3.5-5.0); Alkaline Phosphatase 68 U/L (38-126); Anion Gap 12 mmol/L; Blood Urea Nitrogen 18 mg/dL (9-20); Calcium 9.2 mg/dL (8.4-10.2); Carbon Dioxide 22 mmol/L (22-30); Chloride 100 mmol/L (98-107); Glucose 185 mg/dL (74-99); Magnesium 1.8 mg/dL (1.6-2.3); Potassium 4.3 mmol/L (3.5-5.1); Sodium 134 mmol/L (137-145); Total Bilirubin 0.6 mg/dL (0.2-1.3); Total Protein 6.6 g/dL (6.3-8.2)
[2018-07-23 17:23] LABS: Partial Thromboplastin Time 25.1 sec (22.0-30.0); Prothrombin Time 10.5 sec (9.0-12.0)
--- NOTE | 2018-07-23 17:27 | XR ---
EXAMINATION TYPE: XR chest 1V portable DATE OF EXAM: 07/23/2018 COMPARISON: 07/13/2018 HISTORY: Short of breath TECHNIQUE: Single frontal view of the chest is obtained. FINDINGS: There is coarse interstitial density in the mid and lower lung cheng. Heart size is tal l. There is some pulmonary vascular redistribution. There are chest leads. Thoracic aorta is atheroma tous. There is sclerosis in the humeral heads consistent with oral infarct. There is slight blunting of right costophrenic angle. IMPRESSION: Pulmonary fibrosis. Small right pleural effusion. Mild pulmonary congestion and probable mild heart failure. This is a change compared to old exam.
[2018-07-23] MEDS ORDERED: ACETAMINOPHEN TAB 500 MG TAB PO STA (17:41)
[2018-07-23] MEDS ORDERED: IBUPROFEN 600 MG TAB PO STA (17:41)
[2018-07-23] MEDS ORDERED: IPRATROPIUM 0.5 MG/2.5 ML NEBU INHALATION STA (17:59)
[2018-07-23] MEDS ORDERED: ALBUTEROL NEBULIZED 2.5 MG/3 ML INHALATION STA (17:59)
[2018-07-23] MEDS ORDERED: LORazepam 2 MG/ML INJ IV STA (17:59)
[2018-07-23] MEDS ORDERED: SODIUM CHLORIDE 0.9% 1,000 ML IV STA ×2 (18:00)
[2018-07-23] MEDS ORDERED: SODIUM CHLORIDE 0.9% 500 ML 500 ML IV STA (18:00)
[2018-07-23] MEDS ORDERED: PNEUMONIA PROTOCOL UTILIZED 1 EACH MISC PO PRN (18:42)
[2018-07-23] MEDS ORDERED: ALBUTEROL NEBULIZED 2.5 MG/3 ML INHALATION PRN (18:42)
[2018-07-23] MEDS ORDERED: AZITHROMYCIN 500 MG in SODIUM CHLORIDE 0.9% 250 ML IVPB STA (18:42)
[2018-07-23] MEDS: IPRATROPIUM-ALBUTEROL 3 ML NEB INHALATION SCH (21:15)
[2018-07-23] MEDS ORDERED: NICOTINE 21MG/24HR PATCH TRANSDERM STA (21:37)
[2018-07-23] MEDS: ATORVASTATIN 20 MG TAB PO SCH (21:40)
[2018-07-23] MEDS: METOPROLOL TARTRATE 25 MG TAB PO SCH (21:40)
[2018-07-24] MEDS ORDERED: ACETAMINOPHEN TAB 325 MG TAB PO PRN (00:08)
[2018-07-24] MEDS: LORazepam 2 MG/ML INJ IV PRN (02:24)
[2018-07-24 06:00] LABS: Glucose,Whole Blood 119 mg/dL (75-99)
[2018-07-24] MEDS: methylPREDNISolone SOD SUCCI 40 MG/ML 1 ML VIAL IV SCH ×3 (06:00→23:55)
[2018-07-24] MEDS: INSULIN ASPART (NovoLOG) 100 UNIT/ML VIAL SQ SCH ×4 (06:53→21:22)
--- NOTE | 2018-07-24 07:01 | HP ---
HISTORY AND PHYSICAL DATE OF SERVICE: 07/24/2018 CHIEF COMPLAINTS: Shortness of breath, cough and sputum. HISTORY OF PRESENT ILLNESS: This 72-year-old gentleman with a past medical history of multiple medical problems including history of COPD, history of hypertension, hyperlipidemia, history of DJD, history of pneumonia, history of SVT, history of back surgery, cardiac catheterization, being followed by Dr. Peres in the outpatient setting was not feeling well over the past several days. The patient had shortness of breath and cough and congestion. The patient had worsening of symptoms for the last 2 days and the patient was taken to [facility] and admitted for further evaluation and treatment. On admission, a chest x-ray was done which showed evidence of pulmonary fibrosis and mild pulmonary congestion and possible mild heart failure; pneumonia could not be ruled out. Patient admitted for further evaluation and treatment. The patient's lactic acid was also elevated at 2.8. Patient was given BiPAP. Also, influenza A was positive. There is no history of any fever, rigors or chills at this time. PAST MEDICAL HISTORY: History of chest pain, COPD, hyperlipidemia, history myocardial infarction, DJD, history of SVT, history of back surgery, cardiac catheterization. MEDICATIONS: Medications prior to admission include home medications are: 1. Prednisone daily. 2. Lopressor 25 mg p.o. daily. 3. Doxycycline 100 mg p.o. b.i.d. 4. Symbicort 160/4.5 two puffs b.i.d. 5. Lipitor 20 mg p.o. daily. 6. Aspirin 81 mg p.o. daily. 7. Albuterol 2 puffs q.6 p.r.n. 8. Atrovent 3 mL 9. Nebulization. ALLERGIES: Allergies are PENICILLIN. FAMILY HISTORY: History of COPD, diabetes mellitus, leukemia. SOCIAL HISTORY: History of alcohol. History of occasional smoking. REVIEW OF SYSTEMS: ENT: Diminished hearing and diminished vision. CARDIOVASCULAR SYSTEM: As mentioned earlier. RESPIRATORY SYSTEM: As mentioned earlier. GI: No nausea or vomiting. : No dysuria. NERVOUS SYSTEM: No numbness or weakness. ALLERGY/IMMUNOLOGY: No asthma or hayfever. MUSCULOSKELETAL: As mentioned earlier. HEMATOLOGY/ONCOLOGY: No history of anemia. ENDOCRINE: No history of diabetes mellitus or hypothyroidism. CONSTITUTIONAL: As mentioned earlier. DERMATOLOGY: Negative. RHEUMATOLOGY: Negative. PSYCHIATRY: As mentioned earlier. PHYSICAL EXAMINATION: The patient is alert and oriented x3. Pulse 77, blood pressure 95/49, respirations 22, temperature 98.6, pulse ox 96% on BiPAP. HEENT: Conjunctivae normal. Oral mucosa moist. Neck is no jugular venous distention. No carotid bruit. No lymph node enlargement. Respiratory efforts are markedly increased. CARDIOVASCULAR: S1, S2 muffled. No S3, no S4. RESPIRATORY: Breath sounds diminished at the bases. Breathing efforts are markedly increased. Bilateral scattered rhonchi. Expiratory wheezing and prolonged expiration and crackles heard bilaterally especially in both lower parts. ABDOMEN: Soft, nontender. No mass palpable. LEGS: No edema. No swelling. NERVOUS SYSTEM: Higher functions as mentioned earlier. Moves all 4 limbs. No focal deficits. LYMPHATICS: No lymphadenopathy of the neck, axillae or groin. SKIN: No ulcer, rash or bleeding. JOINTS: No active deforming arthropathy. LABS: WBC 7.5, hemoglobin 14.4. Sodium 134, potassium 4.3. Creatinine is noted. ASSESSMENT: 1. Acute influenza A with possible bibasilar pneumonia with possible sepsis, present on admission. 2. Acute bilateral pulmonary fibrosis. 3. Elevated lactic acid. 4. Hyponatremia. 5. Acute hypoxic respiratory failure, present on admission. 6. History of chest pain. 7. History of chronic obstructive pulmonary disease. 8. Hyperlipidemia. 9. History of myocardial infarction. 10.History of degenerative joint disease. 11.History of pneumonia. 12.History of supraventricular tachycardia. 13.History of back surgery, degenerative joint disease. 14.History of nicotine dependence. 15.History of EtOH. RECOMMENDATIONS AND DISCUSSION: This 72-year-old gentleman who presented with multiple complex medical issues, will monitor the patient closely. Continue the current medications, continue symptomatic treatment. I would recommend broad-spectrum IV antibiotic, bronchodilators, steroids, monitor blood sugars closely. I would also recommend CIWA protocol Ativan. Otherwise, I would also recommend consultation with Dr. Robison, obtain cultures, broad- spectrum IV antibiotics as mentioned earlier. Guarded prognosis because of multiple complex medical issues. Will hold the doxycycline for now. Further recommendations to follow. MMODL / IJN: [id number] / MTDD
--- NOTE | 2018-07-24 07:33 | XR ---
EXAMINATION TYPE: XR chest 1V portable DATE OF EXAM: 07/24/2018 COMPARISON: 07/23/2018 HISTORY: Possible pneumonia TECHNIQUE: Single frontal view of the chest is obtained. FINDINGS: There is an increasing right middle lobe opacity. Faint reticular opacity is unchanged fro m the prior throughout the lungs with a cranial to caudal gradient effect. Blunting of the right cost ophrenic angle is less pronounced on today's exam than the prior. Cardia mediastinal silhouette is ag ain mildly enlarged. Sclerosis of the right humeral head may relate to prior avascular necrosis. IMPRESSION: Increasing right middle lobe consolidation suspicious for pneumonia with interstitial pr ominence that is gravity-dependent favoring mild interstitial pulmonary edema.
[2018-07-24] MEDS: ASPIRIN 81 MG PO SCH (08:06)
[2018-07-24] MEDS: OSELTAMIVIR 75 MG CAP PO SCH ×2 (08:06→21:22)
[2018-07-24] MEDS: METOPROLOL TARTRATE 25 MG TAB PO SCH (08:06)
[2018-07-24] MEDS: ENOXAPARIN 40 MG/0.4 ML SYRINGE SQ SCH (08:06)
[2018-07-24] MEDS: ATORVASTATIN 20 MG TAB PO SCH (08:07)
[2018-07-24] MEDS: IPRATROPIUM-ALBUTEROL 3 ML NEB INHALATION SCH ×4 (08:35→20:59)
[2018-07-24] MEDS ORDERED: FUROSEMIDE 10 MG/ML 4 ML VIAL IV STA (08:38)
[2018-07-24 11:54] LABS: Glucose,Whole Blood 162 mg/dL (75-99)
[2018-07-24] MEDS: AZITHROMYCIN 500 MG TAB PO SCH (12:40)
--- NOTE | 2018-07-24 12:47 | CT ---
EXAMINATION TYPE: CT chest wo con DATE OF EXAM: 07/24/2018 COMPARISON: Chest CT September 13, 2010. HISTORY: ILD CT DLP: 339.1 mGycm. Automated Exposure Control for Dose Reduction was Utilized. TECHNIQUE: CT scan of the thorax is performed without IV contrast. FINDINGS: LUNGS: There is moderate underlying emphysematous change redemonstrated most prominent in the lung ap ices. There is mild to moderate biapical pleural/parenchymal scarring. There is mild to moderate righ t basilar linear scarring redemonstrated. There is mild left basilar linear scarring and/or atelectas is now seen. Some progression in basilar findings noted from 2011 CT. No suspicious acute consolidati on or groundglass opacity. No pneumothorax is evident bilaterally. Tiny posterior medial right basila r pleural thickening or fluid axial image 54 for reference. MEDIASTINUM: Lack of IV contrast is noted to limit evaluation for mediastinal and especially hilar ad enopathy. There are no definitive greater than 1 cm hilar or mediastinal lymph nodes. No cardiomega ly or pericardial effusion is seen. Mild to moderate coronary artery calcification is again seen. OTHER: There is 2.6 cm exophytic simple appearing cyst medially upper pole right kidney axial image 6 6 increase in size from prior study. Slightly exaggerated thoracic kyphosis is seen. Mild multilevel anterior spurring is seen. IMPRESSION: Moderate underlying emphysematous change with scattered parenchymal scarring increased in prominence in the bases from 2011 CT. No significant peripheral reticulation or fibrosis to suggest IPF. No suspicious acute pulmonary infiltrate.
[2018-07-24 12:57] VITALS: BMI 28.1
--- NOTE | 2018-07-24 15:00 | P.CNPUL ---
History of Present Illness Consult date: 07/24/18 Requesting physician: Beth Reed Reason for consult: dyspnea Chief complaint: Shortness of breath, cough congestion History of present illness: This is a very pleasant 72-year-old gentleman who follows with Dr. Peres as his primary care physician. He has a history of hyperlipidemia, osteoarthritis, history of SVT, chronic and ongoing tobacco dependence and chronic obstructive pulmonary disease. He follows with Dr. Robison in our office. He presented to the emergency room yesterday with complaints of increasing shortness of breath, cough and congestion. Chest x-ray reveals increasing right middle lobe consolidation suspicious for pneumonia with interstitial prominence with gravity dependent fever mild interstitial pulmonary edema. Computed tomography scan of the chest reveals moderate underlying emphysematous changes with scattered parenchymal scarring increased in prominence compared to 2011. No articulation or fibrosis to suggest IPF. No suspicious acute pulmonary infiltrate. Sputum and urine cultures are pending. White count 7.5. Hemoglobin 14.4. Creatinine 0.96. He did test positive for influenza A. He is seen today in consultation on the selective care unit. He is awake and alert in no acute distress. He sitting up in a chair at the bedside having lunch. He denies any worsening shortness of breath cough or congestion. He's been afebrile. Hemodynamically stable. Maintaining O2 saturations in the high 90s on 3 L/m per nasal cannula. He's been initiated on bronchodilators, IV Solu-Medrol. Empiric antibiotics. Tamiflu. Review of Systems REVIEW OF SYSTEMS: CONSTITUTIONAL: Denies any recent significant weight loss or weight gain. EYES: Denies change in vision. EARS, NOSE, MOUTH, THROAT: Denies headaches, denies sore throat. CARDIOVASCULAR: Denies chest pain, palpitations or syncopal episodes. RESPIRATORY: Positive for shortness of breath, cough, congestion no hemoptysis. GASTROINTESTINAL: Denies change in appetite, denies abdominal pain GENITOURINARY: Denies hematuria, denies infections. MUSKULOSKELETAL: Denies pain, denies swelling. INTEGUMENTARY: Denies rash, denies eczema. NEUROLOGICAL: Denies recent memory loss, no recent seizure activity. PSYCHIATRIC: Denies anxiety, denies depression. HEMATOLOGIC/LYMPHATIC: Denies anemia, denies enlarged lymph nodes. Past Medical History Past Medical History: Chest Pain / Angina, COPD, Hyperlipidemia, Myocardial Infarction ([place]), Osteoarthritis (OA), Pneumonia Additional Past Medical History / Comment(s): SVT-PER PAST MEDICAL RECORD-PT NOT AWARE, CATARACTS PREET Last Myocardial Infarction Date:: 2008 History of Any Multi-Drug Resistant Organisms: None Reported Past Surgical History: Back Surgery, Heart Catheterization, Hernia Repair, Joint Replacement Additional Past Surgical History / Comment(s): microlaryngoscopy w/ lt vocal cord bx-neg, bronch-lung bx-neg, lt inguinal hernia, preet hip replacments Past Anesthesia/Blood Transfusion Reactions: No Reported Reaction Smoking Status: Current every day smoker - Past Family History Mother Family Medical History: COPD, Diabetes Mellitus Father Family Medical History: COPD, Diabetes Mellitus Brother(s) Family Medical History: Cancer Additional Family Medical History / Comment(s): leukemia Medications and Allergies Home Medications Medication Instructions Recorded Confirmed Type Aspirin 81 mg PO DAILY 07/17/16 07/23/18 History Atorvastatin [Lipitor] 20 mg PO DAILY 07/17/16 07/23/18 History Budesonide-Formot 160-4.5 Mcg 2 puff INHALATION RT-BID 07/17/16 07/23/18 History [Symbicort 160-4.5 Mcg Inhaler] Albuterol Inhaler [Ventolin Hfa 2 puff INHALATION RT-Q6H PRN 07/23/18 07/23/18 History Inhaler] Albuterol Nebulized [Ventolin 2.5 mg INHALATION RT-Q6H 07/23/18 07/23/18 History Nebulized] Doxycycline Hyclate 100 mg PO BID 07/23/18 07/23/18 History Ipratropium-Albuterol Nebulize 3 ml INHALATION RT-Q4H 07/23/18 07/23/18 History [Duoneb 0.5 mg-3 mg/3 ml Soln] Metoprolol Tartrate [Lopressor] 25 mg PO DAILY 07/23/18 07/23/18 History predniSONE See Taper PO DAILY 07/23/18 07/23/18 History Allergies Allergy/AdvReac Type Severity Reaction Status Date / Time Penicillins Allergy Unknown Verified 07/23/18 17:20 Physical Exam Vitals: Vital Signs Temp Pulse Pulse Resp BP BP Pulse Ox 07/24/18 13:32 88 07/24/18 13:22 88 07/24/18 08:55 92 07/24/18 08:35 88 100 07/24/18 08:00 97.6 F 82 26 H 152/75 97 07/24/18 03:13 75 22 07/24/18 03:08 97.9 F 75 22 133/75 97 07/24/18 02:10 88 07/24/18 01:58 80 07/23/18 23:37 77 22 07/23/18 23:34 98.6 F 77 22 95/49 96 07/23/18 21:25 111 H 22 07/23/18 21:15 110 H 22 07/23/18 20:47 100.4 F H 100 21 138/68 97 07/23/18 20:00 100 22 07/23/18 19:29 104 H 20 130/81 96 07/23/18 19:22 108 H 07/23/18 18:32 107 H 07/23/18 18:13 109 H 07/23/18 17:11 40 H 07/23/18 16:44 102.3 F H 07/23/18 16:43 99.7 F H 107 H 40 H 162/58 93 L Intake and Output 07/23/18 07/24/18 07/24/18 22:59 06:59 14:59 Intake Total 500 3250 600 Output Total 2600 Balance 500 3250 -2000 Intake: Intake, IV Titration 2450 Amount Azithromycin 500 mg In 250 Sodium Chloride 0.9% 250 ml @ 250 mls/hr IVPB ONCE STA Rx#:[id number] Sodium Chloride 0.9% 1, 700 000 ml @ 100 mls/hr IV . Q10H STA Rx#:[id number] Sodium Chloride 0.9% 1, 1000 000 ml @ 999 mls/hr IV . Q1H1M STA Rx#:[id number] Sodium Chloride 0.9% 500 500 ml 500 ml @ 999 mls/hr IV .Q31M STA Rx#:[id number] Oral 500 800 600 Output: Urine 2600 Other: Voiding Method Toilet Toilet Urinal # Voids 600 2 Weight 86.183 kg 86.5 kg 86.5 kg GENERAL EXAM: Alert, active, comfortable in no apparent distress. On 3 L nasal cannula HEAD: Normocephalic. EYES: Normal reaction of pupils, equal size. NOSE: Clear with pink turbinates. THROAT: No erythema or exudates. NECK: No masses, no JVD. CHEST: No chest wall deformity. LUNGS: Equal air entry with faint end expiratory wheeze, few scattered rhonchi, diminished CVS: S1 and S2 normal with no audible murmur, regular rhythm. ABDOMEN: No hepatosplenomegaly, normal bowel sounds, no guarding or rigidity. SPINE: No scoliosis or deformity SKIN: No rashes CENTRAL NERVOUS SYSTEM: No focal deficits, tone is normal in all 4 extremities. EXTREMITIES: There is no peripheral edema. No clubbing, no cyanosis. Peripheral pulses are intact. Results - Laboratory Findings CBC and BMP: 07/23/18 17:01 07/23/18 17:01 PT/INR, D-dimer PT 10.5 sec (9.0-12.0) 07/23/18 17:01 INR 1.0 (<1.2) 07/23/18 17:01 Abnormal lab findings: Abnormal Labs 07/23/18 07/23/18 07/23/18 17:01 17:01 19:12 Lymphocytes # 0.5 L Sodium 134 L Glucose 185 H POC Glucose (mg/dL) Plasma Lactic Acid Jakub 2.8 H* Influenza Type A RNA 07/23/18 07/24/18 07/24/18 19:17 05:56 06:40 Lymphocytes # Sodium Glucose POC Glucose (mg/dL) 119 H Plasma Lactic Acid Jakub 0.6 L Influenza Type A RNA Detected H 07/24/18 11:37 Lymphocytes # Sodium Glucose POC Glucose (mg/dL) 162 H Plasma Lactic Acid Jakub Influenza Type A RNA - Diagnostic Findings Chest x-ray: image reviewed CT scan - chest: image reviewed Assessment and Plan Assessment: Impression: #1 Acute on chronic hypoxemic respiratory failure secondary to an acute exacerbation of chronic obstructive pulmonary disease, K by purulent tracheobronchitis and influenza A. #2 Chronic and ongoing tobacco dependence of greater than 50 years. #3 Influenza a infection. #4 Previous alcoholism. Plan: The patient was seen and evaluated by Dr. Robison. Chest x-ray and CAT scan were reviewed. We'll continue the current treatment plan including IV Solu-Medrol, bronchodilators, empiric antibiotics. He remains on Tamiflu. We will increase his activity as tolerated. We'll continue to follow and make further recomme ndations based on his clinical status. I, the cosigning physician, performed a history & physical examination of the patient. Lungs sounds with bilateral end expiratory wheeze. Maintaining good O2 saturations in the 90s on 3 L/m per nasal cannula. I discussed the assessment and plan of care with my nurse practitioner, Chayo Lynch. I attest to the above note as dictated by her. Time with Patient: Greater than 30
[2018-07-24 17:04] LABS: Glucose,Whole Blood 149 mg/dL (75-99)
[2018-07-24] MEDS ORDERED: NICOTINE 21MG/24HR PATCH TRANSDERM SCH (20:00)
[2018-07-24 21:05] LABS: Glucose,Whole Blood 222 mg/dL (75-99)
[2018-07-24] MEDS: NICOTINE 21MG/24HR PATCH TRANSDERM SCH (21:21)
--- NOTE | 2018-07-24 21:56 | PN ---
PROGRESS NOTE DATE OF SERVICE: 07/24/2018 This 72-year-old gentleman who was admitted with acute influenza and bibasilar pneumonia with possible sepsis also had acute hypoxic respiratory failure. Patient used BiPAP last night. A CT of the chest was also done to rule out the possibility of pulmonary fibrosis, and Pulmonary is following the patient closely as well. The patient is on broad-spectrum IV antibiotics. Past medical history reviewed. REVIEW OF SYSTEMS: CARDIOVASCULAR SYSTEM: No angina, palpitations. RESPIRATORY SYSTEM: As mentioned earlier. GI: No nausea, vomiting. : No dysuria or retention. NERVOUS SYSTEM: No numbness, weakness. CURRENT MEDICATIONS: Reviewed. They include: 1. Tylenol 650 q.6 p.r.n. 2. Ventolin p.r.n. 3. DuoNeb q.i.d. and p.r.n. 4. Lipitor. 5. Zithromax 500 mg p.o. daily. 6. Rocephin 1 gram IV daily. 7. Lovenox. 8. Solu-Medrol 40 IV q.8. 9. Tamiflu 75 p.o. b.i.d. PHYSICAL EXAMINATION: Patient is alert and oriented x3. Pulse 86, blood pressure 123/68, respiration 20, temperature 97.6, pulse ox 96% on 5 L. HEENT: Conjunctivae normal. Oral mucosa moist. NECK: No jugular venous distention. No carotid bruit. No lymph node enlargement. CARDIOVASCULAR SYSTEM: S1, S2 muffled. RESPIRATORY SYSTEM: Breath sounds diminished at the bases. Bilateral scattered rhonchi and crackles. Expiratory wheezing also present. ABDOMEN: Soft, non-tender. LEGS: No edema. No swelling. NERVOUS SYSTEM: No focal deficit. LABS: Glucose 162, 149. WBC 7.5, hemoglobin 14.4. Lactic acid 0.6. Influenza A is positive. ASSESSMENT: 1. Acute influenza A with possibly bibasilar pneumonia with possible sepsis, present on admission, with acute hypoxic respiratory failure, on BiPAP. 2. Possible bilateral pulmonary fibrosis. 3. Hyponatremia. 4. Acute on chronic hypoxic respiratory failure, present on admission. 5. History of chest pain. 6. History of chronic obstructive pulmonary disease. 7. Hyperlipidemia. 8. History of myocardial infarction. 9. History of degenerative joint disease. 10.History of pneumonia. 11.History of supraventricular tachycardia. 12.History of back surgery, degenerative joint disease. 13.History of nicotine dependence. 14.History of ethanol. RECOMMENDATIONS AND DISCUSSION: In this 72-year-old gentleman who presented with multiple complex medical issues, we will monitor the patient closely, continue the current management, continue symptomatic treatment. I would recommend continuing with broad-spectrum IV antibiotics. Continue with the antivirals. Continue with the bronchodilators. Continue steroids, which could be tapered gradually. Otherwise, I would also recommend cautious IV fluids. Closely follow with Pulmonary. Guarded prognosis because of multiple complex medical issues. Further recommendations to follow. Will use BiPAP to ensure oxygenation. MMODL / IJN: [id number] /
[2018-07-25] MEDS: LORazepam 2 MG/ML INJ IV PRN (02:02)
[2018-07-25 05:56] LABS: Glucose,Whole Blood 177 mg/dL (75-99)
[2018-07-25] MEDS: INSULIN ASPART (NovoLOG) 100 UNIT/ML VIAL SQ SCH ×4 (06:45→21:11)
[2018-07-25 07:50] LABS: Anisocytosis Slight; Basophils % (A) 0 %; Eosinophils # (A) 0.1 k/uL (0-0.7); Eosinophils % (A) 1 %; HCT 41.8 % (39.0-53.0); HGB 13.5 gm/dL (13.0-17.5); Lymphocytes # (A) 0.5 k/uL (1.0-4.8); Lymphocytes % (A) 8 %; MCH 30.7 pg (25.0-35.0); MCHC 32.2 g/dL (31.0-37.0); MCV 95.4 fL (80.0-100.0); Mean Platelet Volume 8.4; Monocytes # (A) 0.3 k/uL (0-1.0); Monocytes % (A) 5 %; Neutrophils % (A) 85 %; Platelet Count 178 k/uL (150-450); RBC 4.39 m/uL (4.30-5.90); WBC 5.9 k/uL (3.8-10.6)
[2018-07-25 08:05] LABS: Anion Gap 7 mmol/L; Blood Urea Nitrogen 25 mg/dL (9-20); Calcium 9.1 mg/dL (8.4-10.2); Carbon Dioxide 26 mmol/L (22-30); Chloride 104 mmol/L (98-107); Glucose 171 mg/dL (74-99); Potassium 4.9 mmol/L (3.5-5.1); Sodium 137 mmol/L (137-145)
[2018-07-25] MEDS: methylPREDNISolone SOD SUCCI 40 MG/ML 1 ML VIAL IV SCH ×3 (08:22→23:31)
[2018-07-25] MEDS: ENOXAPARIN 40 MG/0.4 ML SYRINGE SQ SCH (08:22)
[2018-07-25] MEDS: ATORVASTATIN 20 MG TAB PO SCH (08:23)
[2018-07-25] MEDS: ASPIRIN 81 MG PO SCH (08:23)
[2018-07-25] MEDS: AZITHROMYCIN 500 MG TAB PO SCH (08:23)
[2018-07-25] MEDS: OSELTAMIVIR 75 MG CAP PO SCH ×2 (08:23→21:11)
[2018-07-25] MEDS: METOPROLOL TARTRATE 25 MG TAB PO SCH (08:23)
[2018-07-25] MEDS: NICOTINE 21MG/24HR PATCH TRANSDERM SCH (08:23)
[2018-07-25] MEDS: IPRATROPIUM-ALBUTEROL 3 ML NEB INHALATION SCH ×4 (11:04→21:13)
[2018-07-25 12:20] LABS: Glucose,Whole Blood 170 mg/dL (75-99)
--- NOTE | 2018-07-25 12:46 | P.PN ---
Subjective Progress Note Date: 07/25/18 Principal diagnosis: Acute on chronic hypoxemic respiratory failure secondary to an acute exacerbation of COPD complicated by influenza A. This is a very pleasant 72-year-old gentleman who follows with Dr. Peres as his primary care physician. He has a history of hyperlipidemia, osteoarthritis, history of SVT, chronic and ongoing tobacco dependence and chronic obstructive pulmonary disease. He follows with Dr. Robison in our office. He presented to the emergency room yesterday with complaints of increasing shortness of breath, cough and congestion. Chest x-ray reveals increasing right middle lobe consolidation suspicious for pneumonia with interstitial prominence with gravity dependent fever mild interstitial pulmonary edema. Computed tomography scan of the chest reveals moderate underlying emphysematous changes with scattered parenchymal scarring increased in prominence compared to 2011. No articulation or fibrosis to suggest IPF. No suspicious acute pulmonary infiltrate. Sputum and urine cultures are pending. White count 7.5. Hemoglobin 14.4. Creatinine 0.96. He did test positive for influenza A. He is seen today in consultation on the selective care unit. He is awake and alert in no acute distress. He sitting up in a chair at the bedside having lunch. He denies any worsening shortness of breath cough or congestion. He's been afebrile. Hemodynamically stable. Maintaining O2 saturations in the high 90s on 3 L/m per nasal cannula. He's been initiated on bronchodilators, IV Solu-Medrol. Empiric antibiotics. Tamiflu. The patient is seen today 07/25/2018 in follow-up on the selective care unit. He is currently sitting up at the bedside. He is awake and alert in no acute distress. He is breathing easier today as compared to yesterday. Still somewhat dyspneic on exertion. He is maintaining O2 saturations in the 90s on 4 L/m per nasal cannula. His been afebrile. Hemodynamically stable. Blood and urine cultures reveal no growth. Sputum culture pending. White count 5.9. Hemoglobin 13.5. Creatinine 0.97. He remains on bronchodilators, antibiotics, IV Solu-Medrol and Tamiflu. NicoDerm patch is in place. Objective - Vital Signs Vital signs: Vital Signs Temp 97.5 F L 07/25/18 04:00 Pulse 86 07/25/18 11:27 Resp 18 07/25/18 11:27 BP 133/69 07/25/18 08:00 Pulse Ox 94 L 07/25/18 08:00 Intake & Output 07/24/18 07/25/18 07/25/18 18:59 06:59 18:59 Intake Total 840 120 Output Total 2800 1125 Balance -1959 -1124 120 Weight 86.5 kg 84.4 kg Intake: Oral 840 120 Output: Urine 2800 1125 Other: Voiding Method Urinal Urinal Urinal # Voids 2 1 # Bowel Movements 1 - Exam GENERAL EXAM: Obese. Pleasant 72-year-old gentleman. Alert, active, com fortable in no apparent distress. On 4 L nasal cannula. HEAD: Normocephalic. EYES: Normal reaction of pupils, equal size. NOSE: Clear with pink turbinates. THROAT: No erythema or exudates. NECK: No masses, no JVD. CHEST: No chest wall deformity. LUNGS: Equal air entry with bilateral end expiratory wheeze, diminished CVS: S1 and S2 normal with no audible murmur, regular rhythm. ABDOMEN: No hepatosplenomegaly, normal bowel sounds, no guarding or rigidity. SPINE: No scoliosis or deformity SKIN: No rashes CENTRAL NERVOUS SYSTEM: No focal deficits, tone is normal in all 4 extremities. EXTREMITIES: There is no peripheral edema. No clubbing, no cyanosis. Peripheral pulses are intact. - Labs CBC & Chem 7: 07/25/18 06:59 07/25/18 06:59 Labs: Abnormal Lab Results - Last 24 Hours (Table) 07/24/18 07/24/18 07/25/18 Range/Units 16:53 21:02 05:54 RDW (11.5-15.5) % Lymphocytes # (1.0-4.8) k/uL BUN (9-20) mg/dL Glucose (74-99) mg/dL POC Glucose (mg/dL) 149 H 222 H 177 H (75-99) mg/dL 07/25/18 07/25/18 07/25/18 Range/Units 06:59 06:59 12:06 RDW 16.0 H (11.5-15.5) % Lymphocytes # 0.5 L (1.0-4.8) k/uL BUN 25 H (9-20) mg/dL Glucose 171 H (74-99) mg/dL POC Glucose (mg/dL) 170 H (75-99) mg/dL Microbiology - Last 24 Hours (Table) 07/24/18 05:05 Gram Stain - Preliminary Sputum Sputum Culture - Preliminary 07/24/18 02:15 Urine Culture - Final Urine,Clean Catch 07/23/18 17:05 Blood Culture - Preliminary Blood No Growth after 24 hours Assessment and Plan Assessment: Impression: #1 Acute on chronic hypoxemic respiratory failure secondary to an acute exacerbation of chronic obstructive pulmonary disease, complicated by purulent tracheobronchitis and influenza A. #2 Chronic and ongoing tobacco dependence of greater than 50 years. #3 Influenza a infection. #4 Previous alcoholism. Plan: The patient was seen and evaluated by Dr. Robison. He is improved today at quite back to his baseline. We'll continue the current treatment plan including IV Solu-Medrol, bronchodilators, empiric antibiotics. He remains on Tamiflu. We will increase his activity as tolerated. We'll continue to follow and make further recommendations based on his clinical status. I, the cosigning physician, performed a history & physical examination of the patient. Lungs sounds with bilateral end expiratory wheeze. Maintaining good O2 saturations in the 90s on 4 L/m per nasal cannula. I discussed the assessment and plan of care with my nurse practitioner, Chayo Lynch. I attest to the above note as dictated by her.
[2018-07-25 17:17] LABS: Glucose,Whole Blood 305 mg/dL (75-99)
[2018-07-25 20:39] LABS: Glucose,Whole Blood 293 mg/dL (75-99)
--- NOTE | 2018-07-26 00:06 | PN ---
PROGRESS NOTE DATE OF SERVICE: 07/25/2018 This 72-year-old gentleman who was admitted with acute influenza A with possible bibasilar pneumonia and possible sepsis is being closely monitored. No chest pain. No palpitations. No fever. EXAM: Alert and oriented x3. Pulse is 90, blood pressure 147/70, respiration 16, temperature is normal, pulse ox 98% on room air. HEENT: Conjunctivae normal. NECK: No JVD. CARDIAC: S1, S2 muffled. RESPIRATORY: Breath sounds diminished at the bases. Bilateral scattered rhonchi and crackles. ABDOMEN: Soft, nontender. LEGS: No edema. NERVOUS SYSTEM: No focal deficits. LAB STUDIES: WBC 5, hemoglobin 13.5, glucose noted. ASSESSMENT: 1. Acute influenza A, possibly bibasilar pneumonia, possible sepsis present on admission with acute hypoxic respiratory failure on BiPAP. 2. Possible bilateral pulmonary fibrosis. 3. Hyponatremia. 4. Acute on chronic hypoxic respiratory failure present on admission. 5. History of chest pain. 6. History of chronic obstructive pulmonary disease. 7. Hyperlipidemia. 8. History of myocardial infarction. 9. History of degenerative joint disease. 10.History of pneumonia. 11.History of supraventricular tachycardia. 12.History of back surgery, degenerative joint disease. 13.Nicotine dependence. 14.History of EtOH. RECOMMENDATIONS AND DISCUSSION: Continue current medications, continue symptomatic treatment. Otherwise, at this time would monitor the blood sugars closely, bronchodilators, steroids. We will taper the steroids. I will continue to monitor. Continue the rest of the medications. Guarded prognosis. Further recommendations to follow. MMODL / IJN: [id number] /
[2018-07-26 06:28] LABS: Glucose,Whole Blood 200 mg/dL (75-99)
[2018-07-26] MEDS: INSULIN ASPART (NovoLOG) 100 UNIT/ML VIAL SQ SCH ×4 (06:31→23:22)
[2018-07-26 07:58] LABS: Basophils % (A) 0 %; Eosinophils % (A) 0 %; HCT 41.9 % (39.0-53.0); HGB 13.4 gm/dL (13.0-17.5); Lymphocytes # (A) 0.6 k/uL (1.0-4.8); Lymphocytes % (A) 6 %; MCH 30.2 pg (25.0-35.0); MCHC 31.9 g/dL (31.0-37.0); MCV 94.7 fL (80.0-100.0); Mean Platelet Volume 8.6; Monocytes # (A) 0.4 k/uL (0-1.0); Monocytes % (A) 4 %; Neutrophils # (A) 8.4 k/uL (1.3-7.7); Neutrophils % (A) 89 %; Platelet Count 197 k/uL (150-450); RBC 4.42 m/uL (4.30-5.90); RDW 15.7 % (11.5-15.5); WBC 9.5 k/uL (3.8-10.6)
[2018-07-26 08:32] LABS: Anion Gap 9 mmol/L; Blood Urea Nitrogen 25 mg/dL (9-20); Calcium 9.3 mg/dL (8.4-10.2); Carbon Dioxide 26 mmol/L (22-30); Chloride 102 mmol/L (98-107); Glucose 197 mg/dL (74-99); Sodium 137 mmol/L (137-145)
[2018-07-26] MEDS: IPRATROPIUM-ALBUTEROL 3 ML NEB INHALATION SCH ×4 (08:48→21:17)
[2018-07-26] MEDS: AZITHROMYCIN 500 MG TAB PO SCH (08:54)
[2018-07-26] MEDS: ENOXAPARIN 40 MG/0.4 ML SYRINGE SQ SCH (08:54)
[2018-07-26] MEDS: ASPIRIN 81 MG PO SCH (08:54)
[2018-07-26] MEDS: ATORVASTATIN 20 MG TAB PO SCH (08:54)
[2018-07-26] MEDS: NICOTINE 21MG/24HR PATCH TRANSDERM SCH (09:01)
[2018-07-26] MEDS: METOPROLOL TARTRATE 25 MG TAB PO SCH (09:01)
[2018-07-26] MEDS: methylPREDNISolone SOD SUCCI 40 MG/ML 1 ML VIAL IV SCH ×3 (09:02→23:11)
[2018-07-26] MEDS: OSELTAMIVIR 75 MG CAP PO SCH ×2 (09:02→23:11)
[2018-07-26 11:55] LABS: Glucose,Whole Blood 171 mg/dL (75-99)
--- NOTE | 2018-07-26 12:21 | P.PN ---
Subjective Progress Note Date: 07/26/18 Principal diagnosis: Acute on chronic hypoxemic respiratory failure secondary to an acute exacerbation of COPD complicated by influenza A. This is a very pleasant 72-year-old gentleman who follows with Dr. Peres as his primary care physician. He has a history of hyperlipidemia, osteoarthritis, history of SVT, chronic and ongoing tobacco dependence and chronic obstructive pulmonary disease. He follows with Dr. Robison in our office. He presented to the emergency room yesterday with complaints of increasing shortness of breath, cough and congestion. Chest x-ray reveals increasing right middle lobe consolidation suspicious for pneumonia with interstitial prominence with gravity dependent fever mild interstitial pulmonary edema. Computed tomography scan of the chest reveals moderate underlying emphysematous changes with scattered parenchymal scarring increased in prominence compared to 2011. No articulation or fibrosis to suggest IPF. No suspicious acute pulmonary infiltrate. Sputum and urine cultures are pending. White count 7.5. Hemoglobin 14.4. Creatinine 0.96. He did test positive for influenza A. He is seen today in consultation on the selective care unit. He is awake and alert in no acute distress. He sitting up in a chair at the bedside having lunch. He denies any worsening shortness of breath cough or congestion. He's been afebrile. Hemodynamically stable. Maintaining O2 saturations in the high 90s on 3 L/m per nasal cannula. He's been initiated on bronchodilators, IV Solu-Medrol. Empiric antibiotics. Tamiflu. The patient is seen today 07/25/2018 in follow-up on the selective care unit. He is currently sitting up at the bedside. He is awake and alert in no acute distress. He is breathing easier today as compared to yesterday. Still somewhat dyspneic on exertion. He is maintaining O2 saturations in the 90s on 4 L/m per nasal cannula. His been afebrile. Hemodynamically stable. Blood and urine cultures reveal no growth. Sputum culture pending. White count 5.9. Hemoglobin 13.5. Creatinine 0.97. He remains on bronchodilators, antibiotics, IV Solu-Medrol and Tamiflu. NicoDerm patch is in place. The patient is seen today 07/26/2018 in follow-up on the selective care unit. He is awake and alert in no acute distress. He denies any shortness of breath, cough or congestion. Continues to maintain good O2 saturations in the 90s on 5 L/m per nasal cannula. He's been afebrile. Hemodynamically stable. Blood, urine and sputum cultures are all negative. White count 9.5. Hemoglobin 13.4. Creatinine 0.83. Objective - Vital Signs Vital signs: Vital Signs Temp 97.8 F 07/26/18 08:00 Pulse 90 07/26/18 11:51 Resp 16 07/26/18 11:44 BP 131/65 07/26/18 11:44 Pulse Ox 95 07/26/18 11:44 Intake & Output 07/25/18 07/26/18 07/26/18 18:59 06:59 18:59 Intake Total 560 200 Output Total 1450 800 800 Balance -890 -800 -600 Weight 84 kg Intake: Oral 560 200 Output: Urine 1450 800 800 Other: Voiding Method Urinal Toilet Toilet Urinal Urinal # Voids 1 1 1 - Exam GENERAL EXAM: Obese. Pleasant 72-year-old gentleman. Alert, active, comf ortable in no apparent distress. On 5 L nasal cannula. HEAD: Normocephalic. EYES: Normal reaction of pupils, equal size. NOSE: Clear with pink turbinates. THROAT: No erythema or exudates. NECK: No masses, no JVD. CHEST: No chest wall deformity. LUNGS: Equal air entry with bilateral end expiratory wheeze, diminished CVS: S1 and S2 normal with no audible murmur, regular rhythm. ABDOMEN: No hepatosplenomegaly, normal bowel sounds, no guarding or rigidity. SPINE: No scoliosis or deformity SKIN: No rashes CENTRAL NERVOUS SYSTEM: No focal deficits, tone is normal in all 4 extremities. EXTREMITIES: There is no peripheral edema. No clubbing, no cyanosis. Peripheral pulses are intact. - Labs CBC & Chem 7: 07/26/18 06:55 07/26/18 06:55 Labs: Abnormal Lab Results - Last 24 Hours (Table) 07/25/18 07/25/18 07/25/18 Range/Units 12:06 17:13 20:37 RDW (11.5-15.5) % Neutrophils # (1.3-7.7) k/uL Lymphocytes # (1.0-4.8) k/uL BUN (9-20) mg/dL Glucose (74-99) mg/dL POC Glucose (mg/dL) 170 H 305 H 293 H (75-99) mg/dL 07/26/18 07/26/18 07/26/18 Range/Units 06:27 06:55 06:55 RDW 15.7 H (11.5-15.5) % Neutrophils # 8.4 H (1.3-7.7) k/uL Lymphocytes # 0.6 L (1.0-4.8) k/uL BUN 25 H (9-20) mg/dL Glucose 197 H (74-99) mg/dL POC Glucose (mg/dL) 200 H (75-99) mg/dL 07/26/18 Range/Units 11:27 RDW (11.5-15.5) % Neutrophils # (1.3-7.7) k/uL Lymphocytes # (1.0-4.8) k/uL BUN (9-20) mg/dL Glucose (74-99) mg/dL POC Glucose (mg/dL) 171 H (75-99) mg/dL Microbiology - Last 24 Hours (Table) 07/24/18 05:05 Gram Stain - Final Sputum Sputum Culture - Final 07/23/18 17:05 Blood Culture - Preliminary Blood No Growth after 48 hours 07/24/18 02:15 Urine Culture - Final Urine,Clean Catch Assessment and Plan Assessment: Impression: #1 Acute on chronic hypoxemic respiratory failure secondary to an acute exacerbation of chronic obstructive pulmonary disease, complicated by purulent tracheobronchitis and influenza A. #2 Chronic and ongoing tobacco dependence of greater than 50 years. #3 Influenza a infection. #4 Previous alcoholism. Plan: The patient was seen and evaluated by Dr. Robison. We'll continue the current treatment plan including IV Solu-Medrol, bronchodilators, empiric antibiotics. He remains on Tamiflu. We will increase his activity as tolerated. Titrate down the FiO2 as tolerated. We'll continue to follow and make further recommendations based on his clinical status. Possible discharge in the a.m. I, the cosigning physician, performed a history & physical examination of the patient. Lungs sounds with bilateral end expiratory wheeze. Maintaining good O2 saturations in the 90s on 5 L/m per nasal cannula. I discussed the assessment and plan of care with my nurse practitioner, Chayo Lynch. I attest to the above note as dictated by her.
[2018-07-26 16:18] LABS: Glucose,Whole Blood 255 mg/dL (75-99)
[2018-07-26 20:36] LABS: Glucose,Whole Blood 260 mg/dL (75-99)
[2018-07-26] MEDS: LORazepam 2 MG/ML INJ IV PRN (23:22)
[2018-07-26 23:32] LABS: Glucose,Whole Blood 207 mg/dL (75-99)
[2018-07-27 06:16] LABS: Glucose,Whole Blood 179 mg/dL (75-99)
[2018-07-27] MEDS: INSULIN ASPART (NovoLOG) 100 UNIT/ML VIAL SQ SCH ×2 (06:49→12:22)
[2018-07-27 07:26] LABS: Anion Gap 7 mmol/L; Blood Urea Nitrogen 27 mg/dL (9-20); Calcium 9.4 mg/dL (8.4-10.2); Carbon Dioxide 26 mmol/L (22-30); Chloride 104 mmol/L (98-107); Glucose 172 mg/dL (74-99); Potassium 5.3 mmol/L (3.5-5.1); Sodium 137 mmol/L (137-145)
[2018-07-27 07:58] VITALS: RESP 18
[2018-07-27 08:15] LABS: Basophils % (A) 0 %; Eosinophils % (A) 0 %; HCT 43.8 % (39.0-53.0); Lymphocytes # (A) 0.7 k/uL (1.0-4.8); Lymphocytes % (A) 7 %; MCH 30.3 pg (25.0-35.0); MCV 94.5 fL (80.0-100.0); Mean Platelet Volume 8.6; Monocytes # (A) 0.3 k/uL (0-1.0); Monocytes % (A) 4 %; Neutrophils % (A) 87 %; Platelet Count 160 k/uL (150-450); RBC 4.64 m/uL (4.30-5.90); RDW 15.3 % (11.5-15.5); WBC 9.1 k/uL (3.8-10.6)
[2018-07-27] MEDS: IPRATROPIUM-ALBUTEROL 3 ML NEB INHALATION SCH ×3 (08:15→15:56)
[2018-07-27] MEDS: methylPREDNISolone SOD SUCCI 40 MG/ML 1 ML VIAL IV SCH (08:37)
[2018-07-27] MEDS: NICOTINE 21MG/24HR PATCH TRANSDERM SCH (08:38)
[2018-07-27] MEDS: OSELTAMIVIR 75 MG CAP PO SCH (08:38)
[2018-07-27] MEDS: METOPROLOL TARTRATE 25 MG TAB PO SCH (08:38)
[2018-07-27] MEDS: ATORVASTATIN 20 MG TAB PO SCH (08:38)
[2018-07-27] MEDS: AZITHROMYCIN 500 MG TAB PO SCH (08:38)
[2018-07-27] MEDS: ASPIRIN 81 MG PO SCH (08:38)
[2018-07-27] MEDS: ENOXAPARIN 40 MG/0.4 ML SYRINGE SQ SCH (08:38)
[2018-07-27 11:48] VITALS: BP 152/77; TEMP 97.5
[2018-07-27 11:51] VITALS: PULSE 88
[2018-07-27 11:55] LABS: Glucose,Whole Blood 171 mg/dL (75-99)
--- NOTE | 2018-07-27 15:58 | P.PN ---
Subjective Progress Note Date: 07/27/18 Principal diagnosis: acute on chronic hypoxemic respiratory failure secondary to exacerbation of COPD complicated by influenza A This is a very pleasant 72-year-old gentleman who follows with Dr. Peres as his primary care physician. He has a history of hyperlipidemia, osteoarthritis, history of SVT, chronic and ongoing tobacco dependence and chronic obstructive pulmonary disease. He follows with Dr. Robison in our office. He presented to the emergency room yesterday with complaints of increasing shortness of breath, cough and congestion. Chest x-ray reveals increasing right middle lobe consolidation suspicious for pneumonia with interstitial prominence with gravity dependent fever mild interstitial pulmonary edema. Computed tomography scan of the chest reveals moderate underlying emphysematous changes with scattered parenchymal scarring increased in prominence compared to 2011. No articulation or fibrosis to suggest IPF. No suspicious acute pulmonary infiltrate. Sputum and urine cultures are pending. White count 7.5. Hemoglobin 14.4. Creatinine 0.96. He did test positive for influenza A. He is seen today in consultation on the selective care unit. He is awake and alert in no acute distress. He sitting up in a chair at the bedside having lunch. He denies any worsening shortness of breath cough or congestion. He's been afebrile. Hemodynamically stable. Maintaining O2 saturations in the high 90s on 3 L/m per nasal cannula. He's been initiated on bronchodilators, IV Solu-Medrol. Empiric antibiotics. Tamiflu. The patient is seen today 07/25/2018 in follow-up on the selective care unit. He is currently sitting up at the bedside. He is awake and alert in no acute distress. He is breathing easier today as compared to yesterday. Still somewhat dyspneic on exertion. He is maintaining O2 saturations in the 90s on 4 L/m per nasal cannula. His been afebrile. Hemodynamically stable. Blood and urine cultures reveal no growth. Sputum culture pending. White count 5.9. Hemoglobin 13.5. Creatinine 0.97. He remains on bronchodilators, antibiotics, IV Solu-Medrol and Tamiflu. NicoDerm patch is in place. The patient is seen today 07/26/2018 in follow-up on the selective care unit. He is awake and alert in no acute distress. He denies any shortness of breath, cough or congestion. Continues to maintain good O2 saturations in the 90s on 5 L/m per nasal cannula. He's been afebrile. Hemodynamically stable. Blood, urine and sputum cultures are all negative. White count 9.5. Hemoglobin 13.4. Creatinine 0.83. On 07/27/2018 patient seen in follow-up on selective care unit. Awake and alert, in no acute distress. No worsening shortness of breath,room air pulse ox is 94%, no fever or chills, hemodynamically stable, breathing is improving. No cough or congestion. Lung sounds are positive for a few scattered rhonchi, no chest pain, no significant phlegm production. blood urine and sputum cultures are negative,ration is on Zithromax for antibiotic coverage, he is on IV prednisone, complaining oral course of Tamiflu and nebulized bronchodilators. Objective - Vital Signs Vital signs: Vital Signs Temp 97.5 F L 07/27/18 11:46 Pulse 88 07/27/18 11:50 Resp 18 07/27/18 11:46 BP 152/77 07/27/18 11:46 Pulse Ox 94 L 07/27/18 11:46 Intake & Output 07/26/18 07/27/18 07/27/18 18:59 06:59 18:59 Intake Total 430 360 720 Output Total 800 400 Balance -370 -40 720 Weight 83.1 kg Intake: IV 10 Invasive Line 3 10 Intake, IV Titration 50 Amount cefTRIAXone 1 gm In 50 Sodium Chloride 0.9% 50 ml @ 100 mls/hr IVPB Q24HR [facility] Rx#:[id number] Oral 430 360 660 Output: Urine 800 400 Other: Voiding Method Toilet Urinal # Voids 1 1 - Exam GENERAL EXAM: Alert, pleasant, 72-year-old white malecomfortable in no apparent distress. HEAD: Normocephalic/atraumatic. EYES: Normal reaction of pupils, equal size. Conjunctiva pink, sclera white. NOSE: Clear with pink turbinates. THROAT: No erythema or exudates. NECK: No masses, no JVD, no thyroid enlargement, no adenopathy. CHEST: No chest wall deformity. Symmetrical expansion. LUNGS: Equal air entry witha few scattered rhonchi CVS: Regular rate and rhythm, normal S1 and S2, no gallops, no murmurs, no rubs ABDOMEN: Soft, nontender. No hepatosplenomegaly, normal bowel sounds, no guarding or rigidity. EXTREMITIES: No clubbing, no edema, no cyanosis, 2+ pulses and upper and lower extremities. MUSCULOSKELETAL: Muscle strength and tone normal. SPINE: No scoliosis or deformity SKIN: No rashes CENTRAL NERVOUS SYSTEM: Alert and oriented -3. No focal deficits, tone is normal in all 4 extremities. PSYCHIATRIC: Alert and oriented -3. Appropriate affect. Intact judgment and insight. - Labs CBC & Chem 7: 07/27/18 06:42 07/27/18 06:42 Labs: Abnormal Lab Results - Last 24 Hours (Table) 07/26/18 07/26/18 07/26/18 Range/Units 16:16 20:30 23:15 Neutrophils # (1.3-7.7) k/uL Lymphocytes # (1.0-4.8) k/uL Potassium (3.5-5.1) mmol/L BUN (9-20) mg/dL Glucose (74-99) mg/dL POC Glucose (mg/dL) 255 H 260 H 207 H (75-99) mg/dL 07/27/18 07/27/18 07/27/18 Range/Units 06:14 06:42 06:42 Neutrophils # 8.0 H (1.3-7.7) k/uL Lymphocytes # 0.7 L (1.0-4.8) k/uL Potassium 5.3 H (3.5-5.1) mmol/L BUN 27 H (9-20) mg/dL Glucose 172 H (74-99) mg/dL POC Glucose (mg/dL) 179 H (75-99) mg/dL 07/27/18 Range/Units 11:52 Neutrophils # (1.3-7.7) k/uL Lymphocytes # (1.0-4.8) k/uL Potassium (3.5-5.1) mmol/L BUN (9-20) mg/dL Glucose (74-99) mg/dL POC Glucose (mg/dL) 171 H (75-99) mg/dL Microbiology - Last 24 Hours (Table) 07/23/18 17:05 Blood Culture - Preliminary Blood No Growth after 72 hours Assessment and Plan Plan: #1 Acute on chronic hypoxemic respiratory failure secondary to an acute exacerbation of chronic obstructive pulmonary disease, complicated by purulent tracheobronchitis and influenza A. #2 Chronic and ongoing tobacco dependence of greater than 50 years. #3 Influenza a infection. #4 Previous alcoholism. Plan: Patient is doing well, stable, he is improving, breathing easier, no significant shortness of breath, cough or congestion. No fever or chills, and plan a course of Tamiflu, oral Zithromax, he is on IV Solu-Medrol bronchodilators. From pulmonary perspective he is stable for discharge home today, he will need to complete his course of Tamiflu, oral Zithromax, prednisone taper. Outpatient follow-up with Dr. Carpenter in the office. I performed a history & physical examination of the patient and discussed their management with my nurse practitioner, Aanly Huang. I reviewed the nurse practitioner's note and agree with the documented findings and plan of care. Lung sounds are positive for scattered rhoncghi. The findings and the impression was discussed with the patient. I attest to the documentation by the nurse practitioner. Time with Patient: Less than 30
--- NOTE | 2018-07-28 05:14 | DS ---
DISCHARGE SUMMARY DATE OF SERVICE: 07/27/2018 FINAL DIAGNOSES: 1. Acute influenza A, possible bibasilar pneumonia, possibly gram negative possibly sepsis, present on admission with acute hypoxic respiratory failure on BiPAP. 2. Possible bilateral pulmonary fibrosis. 3. Hyponatremia. 4. Acute on chronic hypoxic respiratory failure, present on admission. 5. History of chest pain. 6. Chronic obstructive pulmonary disease. 7. Hyperlipidemia. 8. History of myocardial infarction. 9. History of degenerative joint disease. 10.History of pneumonia. 11.History of supraventricular tachycardia. 12.History of back surgery, degenerative joint disease. 13.History of nicotine dependence. 14.History of EtOH. DISCHARGE DISPOSITION: The patient will be discharged in stable condition with guarded prognosis. HISTORY OF PRESENT ILLNESS: This 72-year-old gentleman with a past medical history of multiple medical problems was admitted with features of pneumonia, hypoxic respiratory failure, influenza A, and multiple other complex medical issues. The patient was treated with bronchodilators, antibiotics empirically and antivirals also. Patient improved significantly. Dr. Robison saw the patient. On exam, vitals are stable. CARDIOVASCULAR: S1, S2 muffled. RESPIRATION: A few scattered rhonchi. ABDOMEN: Soft. NERVOUS SYSTEM: No focal deficits. LABS: WBC 9.1, hemoglobin 14. Sodium 137, potassium 5.3. The patient will be discharged in stable condition with guarded prognosis. Total time taken 35 minutes. DISCHARGE ADVICE: 1. Diet is cardiac diet. 2. Activity limited until followup. 3. Follow up with Dr. Peres in 2 to 3 days. 4. Follow up with Dr. Robison as recommended. Medications are as follows: 1. Ecotrin 81 mg p.o. daily. 2. DuoNeb q.4 and p.r.n. 3. Lipitor 20 mg p.o. daily. 4. Lopressor 25 mg b.i.d. 5. Symbicort 160/4.5 two puffs b.i.d. 6. Ventolin p.r.n. 7. Habitrol 21 daily. No smoking. 8. Prednisone that is 40 mg daily for 3 days, 30 mg daily for 3 days, 20 for 3 days, 10 for 3 day and then stop. 9. Tamiflu 75 mg p.o. b.i.d. for 3 more doses. 10.Zithromax 500 mg p.o. daily for 5 days. Once again, the patient discharged in stable condition with guarded prognosis. MMODL / IJN: [id number] /
== END 2018-07-27 16:05 | disposition home or self-care (01) | DRG 871 ==
LOC: EC 16:40 → 3SCARD 18:42
PROVIDERS: ADMIT Hospitalist; ATTEND Hospitalist
PROC: 5A09457 Assistance with Respiratory Ventilation, 24-96 Consecutive Hours, Continuous Positive Airway Pressure (ICD-10-PCS; principal; 2018-07-23)
DX: A41.9 Sepsis, unspecified organism (principal); J10.08 Influenza due to other identified influenza virus with other specified pneumonia; J15.6 Pneumonia due to other Gram-negative bacteria; J96.21 Acute and chronic respiratory failure with hypoxia; J44.0 Chronic obstructive pulmonary disease with (acute) lower respiratory infection; J44.1 Chronic obstructive pulmonary disease with (acute) exacerbation; E87.1 Hypo-osmolality and hyponatremia; I11.0 Hypertensive heart disease with heart failure; J84.10 Pulmonary fibrosis, unspecified; I50.9 Heart failure, unspecified; M47.9 Spondylosis, unspecified; E78.5 Hyperlipidemia, unspecified; M19.90 Unspecified osteoarthritis, unspecified site; I25.2 Old myocardial infarction; F17.210 Nicotine dependence, cigarettes, uncomplicated; F10.21 Alcohol dependence, in remission; Z79.82 Long term (current) use of aspirin; Z79.51 Long term (current) use of inhaled steroids; Z79.899 Other long term (current) drug therapy; Z96.643 Presence of artificial hip joint, bilateral; Z88.0 Allergy status to penicillin; Z87.01 Personal history of pneumonia (recurrent); Z86.79 Personal history of other diseases of the circulatory system; Z82.5 Family history of asthma and other chronic lower respiratory diseases; Z83.3 Family history of diabetes mellitus; Z80.6 Family history of leukemia
CPT/HCPCS: 36415; 71045; 71250; 80048; 80053; 83605; 83735; 83880; 84484; 85025; 85610; 85730; 87040; 87070; 87086; 87205; 87502; 93005; 94640; 94644; 94660; 94760; 96361; 96365; 96374; 99291

== ENCOUNTER → 2018-10-02 | Outpatient (CLI) | payer MEDICARE ==
--- NOTE | 2018-10-02 17:08 | US ---
EXAMINATION TYPE: US venous doppler duplex LE LT DATE OF EXAM: 10/02/2018 5:00 PM COMPARISON: NONE CLINICAL HISTORY: I80.9 Phlebitis and thrombophlebitis, M25.562. Left leg pain and swelling x 1 week SIDE PERFORMED: Left TECHNIQUE: The lower extremity deep venous system is examined utilizing real time linear array sonog leti with graded compression, doppler sonography and color-flow sonography. VESSELS IMAGED: External Iliac Vein (EIV) Common Femoral Vein Deep Femoral Vein Greater Saphenous Vein * Femoral Vein Popliteal Vein Small Saphenous Vein * Proximal Calf Veins (* superficial vessels) Left Leg: Appears negative for DVT IMPRESSION: Normal exam. No evidence of deep venous thrombosis in the left leg.
== END | disposition home or self-care (01) ==
LOC: RADUSWWP 16:33
PROVIDERS: ATTEND Orthopaedic Surgery
DX: M79.662 Pain in left lower leg (principal); M25.562 Pain in left knee

== ENCOUNTER → 2018-10-13 | Outpatient (CLI) | payer MEDICARE ==
--- NOTE | 2018-10-13 14:05 | US ---
EXAMINATION TYPE: US venous doppler duplex LE LT DATE OF EXAM: 10/13/2018 1:52 PM COMPARISON: US from 11 days ago. CLINICAL HISTORY: M79.89 Swelling Of Left Lower Extremity. Continued LLE swelling and knee swelling; medial left knee pain; had fluid aspirated from left knee joint 2 weeks ago. SIDE PERFORMED: Left TECHNIQUE: The lower extremity deep venous system is examined utilizing real time linear array sonog leti with graded compression, doppler sonography and color-flow sonography. VESSELS IMAGED: Common Femoral Vein Deep Femoral Vein Greater Saphenous Vein * Femoral Vein Popliteal Vein Small Saphenous Vein * Proximal Calf Veins (* superficial vessels) Grayscale, color doppler, spectral doppler imaging performed of the deep veins of the left lower extr emity. There is normal flow, compressibility, vascular waveforms. Left Leg: Negative for DVT. Small amount of fluid was seen anteromedial to left knee = 4.1 x 2.1 x 0.5cm. Tech findings called to Dr Peres's office at exam's end. JJ IMPRESSION: No ultrasound evidence for acute DVT. Small curvilinear fluid collection near bone anter ior medial left knee marked by the technologist towards the end of this study.
== END | disposition home or self-care (01) ==
LOC: RADUSWWP 13:14
PROVIDERS: ATTEND Internal Medicine
DX: M79.89 Other specified soft tissue disorders (principal)

== ENCOUNTER 2019-03-24 04:00 | Observation (INO) | payer MEDICARE ==
[2019-03-24 04:41] LABS: Basophils % (A) 0 %; Eosinophils # (A) 0.1 k/uL (0-0.7); Eosinophils % (A) 1 %; HCT 39.4 % (39.0-53.0); HGB 13.3 gm/dL (13.0-17.5); Lymphocytes # (A) 1.1 k/uL (1.0-4.8); Lymphocytes % (A) 9 %; MCH 31.1 pg (25.0-35.0); MCHC 33.6 g/dL (31.0-37.0); MCV 92.4 fL (80.0-100.0); Mean Platelet Volume 7.4; Monocytes # (A) 0.7 k/uL (0-1.0); Monocytes % (A) 6 %; Neutrophils # (A) 10.6 k/uL (1.3-7.7); Neutrophils % (A) 83 %; Platelet Count 219 k/uL (150-450); RBC 4.27 m/uL (4.30-5.90); WBC 12.7 k/uL (3.8-10.6)
--- NOTE | 2019-03-24 04:44 | ED ---
SOB HPI - General Chief Complaint: Shortness of Breath Stated Complaint: GIL Time Seen by Provider: 03/24/19 04:12 Source: patient Mode of arrival: wheelchair Limitations: no limitations - History of Present Illness Initial Comments: Ludwin is a 73-year-old gentleman with history of COPD who wears oxygen at night usually 3 L. Patient presents the emergency department today because for the past week he's had a nonproductive cough for the past 2 days he's been feeling short of breath, wheezing, using breathing treatments every 2 hours, cough is become more productive and patient reports he is now wearing his oxygen around the clock. Patient states he couldn't sleep tonight which prompted him to come in to the ER this morning. Patient denies any chest pain. He does report palpitations after breathing treatments. - Related Data Home Medications Medication Instructions Recorded Confirmed RX: Aspirin 81 mg PO DAILY 07/17/16 03/24/19 RX: Atorvastatin [Lipitor] 20 mg PO DAILY 07/17/16 03/24/19 RX: Budesonide-Formot 160-4.5 Mcg 2 puff INHALATION RT-BID 07/17/16 03/24/19 [Symbicort 160-4.5 Mcg Inhaler] RX: Albuterol Inhaler [Ventolin 2 puff INHALATION RT-Q6H PRN 07/23/18 03/24/19 Hfa Inhaler] RX: Albuterol Nebulized [Ventolin 2.5 mg INHALATION RT-Q6H 07/23/18 03/24/19 Nebulized] RX: Ipratropium-Albuterol Nebulize 3 ml INHALATION RT-Q4H 07/23/18 03/24/19 [Duoneb 0.5 mg-3 mg/3 ml Soln] RX: Metoprolol Tartrate [Lopressor] 25 mg PO DAILY 07/23/18 03/24/19 Previous Rx's Medication Instructions Recorded RX: Azithromycin [Zithromax] 500 mg PO DAILY #5 tab 07/27/18 RX: Nicotine 21Mg/24Hr Patch 1 patch TRANSDERM DAILY #30 patch 07/27/18 [Habitrol] RX: Oseltamivir [Tamiflu] 75 mg PO Q12HR #3 cap 07/27/18 RX: predniSONE 10 mg PO DIRECTED #30 tab 07/27/18 Allergies Allergy/AdvReac Type Severity Reaction Status Date / Time Penicillins Allergy Unknown Verified 07/23/18 17:20 Review of Systems ROS Statement: Those systems with pertinent positive or pertinent negative responses have been documented in the HPI. ROS Other: All systems not noted in ROS Statement are negative. Past Medical History Past Medical History: Chest Pain / Angina, COPD, Hyperlipidemia, Myocardial Infarction ([place]), Osteoarthritis ([place]), Pneumonia Additional Past Medical History / Comment(s): SVT-PER PAST MEDICAL RECORD-PT NOT AWARE, CATARACTS PREET Last Myocardial Infarction Date:: 2008 History of Any Multi-Drug Resistant Organisms: None Reported Past Surgical History: Back Surgery, Heart Catheterization, Hernia Repair, Joint Replacement Additional Past Surgical History / Comment(s): microlaryngoscopy w/ lt vocal cord bx-neg, bronch-lung bx-neg, lt inguinal hernia, preet hip replacments Past Anesthesia/Blood Transfusion Reactions: No Reported Reaction Past Psychological History: No Psychological Hx Reported Smoking Status: Current every day smoker - Past Family History Mother Family Medical History: COPD, Diabetes Mellitus Father Family Medical History: COPD, Diabetes Mellitus Brother(s) Family Medical History: Cancer Additional Family Medical History / Comment(s): leukemia General Exam - General Exam Comments Initial Comments: Physical Exam GENERAL: Patient is well-developed and well-nourished. Patient is nontoxic and well- hydrated and is in no distress. HENT: Normocephalic, Atraumatic. EYES: PERRL, EOMI PULMONARY: Wheezing CARDIOVASCULAR: There is a regular rate and rhythm without any murmurs gallops or rubs. ABDOMEN: Soft and nontender with normal bowel sounds. SKIN: Skin is clear with no lesions or rashes and otherwise unremarkable. : Deferred NEUROLOGIC: Patient is alert and oriented x3. Moving all extremities spontaneously MUSCULOSKELETAL: Normal extremities with adequate strength and full range of motion. No lower extremity swelling or edema. No calf tenderness. PSYCHIATRIC: Normal psychiatric evaluation. Limitations: no limitations Course Vital Signs 03/24/19 03/24/19 03/24/19 04:08 04:18 05:00 Temperature 98.4 F Pulse Rate 109 H 89 Respiratory 28 H 25 H Rate Blood Pressure 126/56 139/70 O2 Sat by Pulse 98 97 97 Oximetry 03/24/19 03/24/19 03/24/19 05:10 05:19 05:20 Temperature Pulse Rate 100 100 96 Respiratory Rate Blood Pressure O2 Sat by Pulse Oximetry 03/24/19 05:43 Temperature Pulse Rate 96 Respiratory Rate Blood Pressure O2 Sat by Pulse Oximetry Medical Decision Making - Medical Decision Making The patient was seen and evaluated on arrival. This is a 73, history of COPD status cigarettes. Patient increasing shortness of breath has been using breathing labs and imaging ordered. Workup is suggestive of COPD exacerbation. There is no signs of pneumonia, influenza is negative. Patient better after DuoNeb and albuterol therapy. At this time we will plan to the patient for COPD exacerbation. Patient is agreeable. Admission orders were placed. Patient admitted Dr. Reed. - Lab Data Result diagrams: 03/24/19 04:30 03/24/19 04:30 Lab Results 03/24/19 03/24/19 03/24/19 Range/Units 04:25 04:30 04:30 WBC 12.7 H (3.8-10.6) k/uL RBC 4.27 L (4.30-5.90) m/uL Hgb 13.3 (13.0-17.5) gm/dL Hct 39.4 (39.0-53.0) % MCV 92.4 (80.0-100.0) fL MCH 31.1 (25.0-35.0) pg MCHC 33.6 (31.0-37.0) g/dL RDW 15.0 (11.5-15.5) % Plt Count 219 (150-450) k/uL Neutrophils % 83 % Lymphocytes % 9 % Monocytes % 6 % Eosinophils % 1 % Basophils % 0 % Neutrophils # 10.6 H (1.3-7.7) k/uL Lymphocytes # 1.1 (1.0-4.8) k/uL Monocytes # 0.7 (0-1.0) k/uL Eosinophils # 0.1 (0-0.7) k/uL Basophils # 0.0 (0-0.2) k/uL PT (9.0-12.0) sec INR (<1.2) APTT (22.0-30.0) sec Sodium 137 (137-145) mmol/L Potassium 4.4 (3.5-5.1) mmol/L Chloride 103 (98-107) mmol/L Carbon Dioxide 25 (22-30) mmol/L Anion Gap 9 mmol/L BUN 19 (9-20) mg/dL Creatinine 1.09 (0.66-1.25) mg/dL Est GFR (CKD-EPI)AfAm 78 (>60 ml/min/1.73 sqM) Est GFR (CKD-EPI)NonAf 68 (>60 ml/min/1.73 sqM) Glucose 186 H (74-99) mg/dL Calcium 9.1 (8.4-10.2) mg/dL Magnesium 2.0 (1.6-2.3) mg/dL Total Bilirubin 0.7 (0.2-1.3) mg/dL AST 17 (17-59) U/L ALT 32 (21-72) U/L Alkaline Phosphatase 81 (38-126) U/L Troponin I (0.000-0.034) ng/mL NT-Pro-B Natriuret Pep pg/mL Total Protein 6.7 (6.3-8.2) g/dL Albumin 3.9 (3.5-5.0) g/dL Influenza Type A RNA Not Detected (Not Detectd) Influenza Type B (PCR) Not Detected (Not Detectd) 03/24/19 03/24/19 03/24/19 Range/Units 04:30 04:30 04:30 WBC (3.8-10.6) k/uL RBC (4.30-5.90) m/uL Hgb (13.0-17.5) gm/dL Hct (39.0-53.0) % MCV (80.0-100.0) fL MCH (25.0-35.0) pg MCHC (31.0-37.0) g/dL RDW (11.5-15.5) % Plt Count (150-450) k/uL Neutrophils % % Lymphocytes % % Monocytes % % Eosinophils % % Basophils % % Neutrophils # (1.3-7.7) k/uL Lymphocytes # (1.0-4.8) k/uL Monocytes # (0-1.0) k/uL Eosinophils # (0-0.7) k/uL Basophils # (0-0.2) k/uL PT 10.3 (9.0-12.0) sec INR 1.0 (<1.2) APTT 27.3 (22.0-30.0) sec Sodium (137-145) mmol/L Potassium (3.5-5.1) mmol/L Chloride (98-107) mmol/L Carbon Dioxide (22-30) mmol/L Anion Gap mmol/L BUN (9-20) mg/dL Creatinine (0.66-1.25) mg/dL Est GFR (CKD-EPI)AfAm (>60 ml/min/1.73 sqM) Est GFR (CKD-EPI)NonAf (>60 ml/min/1.73 sqM) Glucose (74-99) mg/dL Calcium (8.4-10.2) mg/dL Magnesium (1.6-2.3) mg/dL Total Bilirubin (0.2-1.3) mg/dL AST (17-59) U/L ALT (21-72) U/L Alkaline Phosphatase (38-126) U/L Troponin I <0.012 (0.000-0.034) ng/mL NT-Pro-B Natriuret Pep 122 pg/mL Total Protein (6.3-8.2) g/dL Albumin (3.5-5.0) g/dL Influenza Type A RNA (Not Detectd) Influenza Type B (PCR) (Not Detectd) - EKG Data -: EKG Interpreted by Me EKG shows normal: sinus rhythm EKG Comments: KG obtained due to complaint of shortness of breath, EKG was obtained at 4. 4 AM, EKG with a rate of 86, rhythm is sinus there is normal axis, there are normal intervals, MD 204, QRS 86, QTC 07/30/1991, there are no acute ST elevati ons or depressions no evidence of acute ischemia or infarction. Disposition Clinical Impression: COPD exacerbation, Hypoxia Disposition: ADMITTED IP TO THIS HOSP Condition: Stable Is patient prescribed a controlled substance at d/c from ED?: No Referrals: Britni Peres MD [Primary Care Provider] - 1-2 days
[2019-03-24] MEDS ORDERED: IPRATROPIUM-ALBUTEROL 3 ML NEB INHALATION STA (04:46)
[2019-03-24] MEDS ORDERED: methylPREDNISolone SOD SUCCI 125 MG/2 ML VIAL IV STA (04:46)
--- NOTE | 2019-03-24 04:47 | XR ---
EXAM: XR Chest, 2 Views CLINICAL HISTORY: difficulty breathing TECHNIQUE: Frontal and lateral views of the chest. COMPARISON: Resection 01/14 FINDINGS: Lungs: Mild diffuse airspace opacities in both lungs. Pleural space: Unremarkable. No pneumothorax. Heart: Unremarkable. No cardiomegaly. Mediastinum: Unremarkable. Bones/joints: Osteopenia. Moderate degenerative changes. Vasculature: Aorta is tortuous and calcified. IMPRESSION: Mild pulmonary edema.
[2019-03-24 04:51] LABS: Albumin 3.9 g/dL (3.5-5.0); Calcium 9.1 mg/dL (8.4-10.2); Potassium 4.4 mmol/L (3.5-5.1); Total Bilirubin 0.7 mg/dL (0.2-1.3); Total Protein 6.7 g/dL (6.3-8.2)
[2019-03-24 05:02] LABS: Partial Thromboplastin Time 27.3 sec (22.0-30.0); Prothrombin Time 10.3 sec (9.0-12.0)
[2019-03-24] MEDS ORDERED: ALBUTEROL NEBULIZED 2.5 MG/3 ML INHALATION STA (05:16)
[2019-03-24] MEDS ORDERED: NICOTINE POLACRILEX 2 MG GUM BUCCAL PRN (06:13)
[2019-03-24] MEDS: ALBUTEROL NEBULIZED 2.5 MG/3 ML INHALATION SCH ×4 (08:51→19:58)
[2019-03-24] MEDS: predniSONE 20 MG TAB PO SCH (09:00)
[2019-03-24] MEDS: guaiFENesin 600 MG TABLET.ER PO SCH ×2 (09:01→20:44)
[2019-03-24] MEDS: NICOTINE 14MG/24HR PATCH TRANSDERM SCH (09:01)
[2019-03-24 13:12] VITALS: BMI 28.0
--- NOTE | 2019-03-24 15:04 | P.HPIM ---
History of Present Illness 73-year-old male with known history of COPD continues to smoke one and half packs per day came in with complaints of shortness of breath, whitish sputum production. Patient is being admitted for COPD examination chest x-ray did not show pneumonia patient denied any fever chills. Patient was started on systemic steroids inhalational treatments. Patient does use 2 L of onset at home. Presently on 4 L. Review of Systems REVIEW OF SYSTEMS: CONSTITUTIONAL: No fever, no malaise, no fatigue. HEENT: No recent visual problems or hearing problems. Denied any sore throat. CARDIOVASCULAR: No chest pain, orthopnea, PND, no palpitations, no syncope. PULMONARY: As mentioned in HPI GASTROINTESTINAL: No diarrhea, no nausea, no vomiting, no abdominal pain. NEUROLOGICAL: No headaches, no weakness, no numbness. HEMATOLOGICAL: Denies any bleeding or petechiae. GENITOURINARY: Denies any burning micturition, frequency, or urgency. MUSCULOSKELETAL/RHEUMATOLOGICAL: Denies any joint pain, swelling, or any muscle pain. ENDOCRINE: Denies any polyuria or polydipsia. The rest of the 14-point review of systems is negative. Past Medical History Past Medical History: Chest Pain / Angina, COPD, Hyperlipidemia, Myocardial Infarction ([place]), Osteoarthritis (OA), Pneumonia Additional Past Medical History / Comment(s): Acute hypoxic respiratory failure with bipap in past, home oxygen normally just at HS, arthritis R shoulder, SVT per past medical record but pt does not recall. Last Myocardial Infarction Date:: 2008 History of Any Multi-Drug Resistant Organisms: None Reported Past Surgical History: Back Surgery, Heart Catheterization, Hernia Repair, Joint Replacement Additional Past Surgical History / Comment(s): microlaryngoscopy w/ lt vocal cord bx-neg, bronch-lung bx-neg, lt inguinal hernia, low back surgery, bilateral total hip arthroplasties, bilateral cataracts removed. Past Anesthesia/Blood Transfusion Reactions: No Reported Reaction Smoking Status: Current every day smoker - Past Family History Mother Family Medical History: COPD, Diabetes Mellitus Father Family Medical History: COPD, Diabetes Mellitus Brother(s) Family Medical History: Cancer Additional Family Medical History / Comment(s): leukemia Medications and Allergies Home Medications Medication Instructions Recorded Confirmed Type Aspirin 81 mg PO DAILY 07/17/16 03/24/19 History Atorvastatin [Lipitor] 20 mg PO DAILY 07/17/16 03/24/19 History Budesonide-Formot 160-4.5 Mcg 2 puff INHALATION RT-BID 07/17/16 03/24/19 History [Symbicort 160-4.5 Mcg Inhaler] Albuterol Inhaler [Ventolin Hfa 2 puff INHALATION RT-Q6H PRN 07/23/18 03/24/19 History Inhaler] Metoprolol Tartrate [Lopressor] 25 mg PO DAILY 07/23/18 03/24/19 History Albuterol Nebulized [Ventolin 2.5 mg INHALATION RT-TID 03/24/19 03/24/19 History Nebulized] Ibuprofen [Motrin] 800 mg PO TID PRN 03/24/19 03/24/19 History predniSONE 5 mg PO DAILY 03/24/19 03/24/19 History Allergies Allergy/AdvReac Type Severity Reaction Status Date / Time Penicillins Allergy Unknown Verified 03/24/19 07:04 Physical Exam Vitals: Vital Signs Temp Pulse Pulse Resp BP BP Pulse Ox 03/24/19 12:28 82 03/24/19 12:17 80 03/24/19 11:07 97.7 F 72 20 112/52 96 03/24/19 09:05 84 03/24/19 08:51 82 03/24/19 07:38 98.7 F 81 20 116/58 97 03/24/19 05:43 96 03/24/19 05:20 96 03/24/19 05:19 100 03/24/19 05:10 100 03/24/19 05:00 89 25 H 139/70 97 03/24/19 04:18 97 03/24/19 04:08 98.4 F 109 H 28 H 126/56 98 Intake and Output 03/23/19 03/24/19 03/24/19 22:59 06:59 14:59 Other: Voiding Method Urinal Weight 86.183 kg 86.183 kg PHYSICAL EXAMINATION: GENERAL: The patient is alert and oriented x3, and is in mild respiratory distress. Well developed, well nourished. HEENT: Pupils are round and equally reacting to light. EOMI. No scleral icterus. No conjunctival pallor. Normocephalic, atraumatic. No pharyngeal erythema. No thyromegaly. CARDIOVASCULAR: S1 and S2 present. No murmurs, rubs, or gallops. PULMONARY: Decreased air entry but no wheezing or crackles was appreciated ABDOMEN: Soft, nontender, nondistended, normoactive bowel sounds. No palpable organomegaly. MUSCULOSKELETAL: No joint swelling or deformity. EXTREMITIES: No cyanosis, clubbing, or pedal edema. NEUROLOGICAL: Gross neurological examination did not reveal any focal deficits. SKIN: No rashes. Results CBC & Chem 7: 03/24/19 04:30 03/24/19 04:30 Labs: Abnormal Lab Results - Last 24 Hours (Table) 03/24/19 03/24/19 Range/Units 04:30 04:30 WBC 12.7 H (3.8-10.6) k/uL RBC 4.27 L (4.30-5.90) m/uL Neutrophils # 10.6 H (1.3-7.7) k/uL Glucose 186 H (74-99) mg/dL Thrombosis Risk Factor Assmnt - Choose All That Apply Any of the Below Risk Factors Present?: Yes Each Factor Represents 1 point: Abnormal pulmonary function (COPD), Obesity (BMI >25), Serious lung disease incl. pneumonia (< 1month) Other Risk Factors: Yes Each Risk Factor Represents 2 Points: Age 61-74 years Other congenital or acquired thrombophilia - If yes, enter type in comment: No Thrombosis Risk Factor Assessment Total Risk Factor Score: 5 Thrombosis Risk Factor Assessment Level: High Risk Assessment and Plan Plan: -Acute on chronic hypercapnic respiratory failure secondary to COPD exacerbation patient can use to smoke smoking cessation counseling was provided patient was started on systemic steroids and patient treatments which will be continued. -Continued nicotine use: Counseling was provided -Coronary artery disease 10-hyperlipidemia -Osteoarthritis For above-mentioned chronic medical problems patient will be resumed on appropriate home medications DVT prophylaxis subcutaneous heparin and GI prophylaxis with Pepcid
--- NOTE | 2019-03-24 16:47 | P.CNPUL ---
History of Present Illness Consult date: 03/24/19 Reason for consult: dyspnea, COPD History of present illness: 71-year-old male patient with known history of COPD whereas been followed up with us in the office and he carries an FEV1 of 46% of predicted. He is a chronic smoker and he has been maintained on Symbicort 2 puffs twice a day and Proventil rescue inhaler on an as-needed basis. The patient has been seeing Dr. Rubio on a regular basis. During his last dilatation on 03/18/2019 the patient was given a Depo-Medrol shot for an acute COPD exacerbation. His condition got worse and for that reason. Coming into the hospital for an acute COPD exacerbation. He typically is on 2 L of oxygen at home. Currently is on 4 L of oxygen by nasal cannula. His chest x-ray shows mild pulmonary interstitial edema/airspace opacities in both lungs. White cell count is at 12.7. No angina. No palpitation. Troponins are negative. BNP is not elevated. Influenza screen is negative. He is a chronic smoker and continues to smoke around one pack of cigarettes on a daily basis. The patient is demented on 5 mg of prednisone on a chronic basis. Review of Systems Constitutional: Denies chills, Denies fever Eyes: denies as per HPI, denies blurred vision, denies bulging eye, denies decreased vision, denies diplopia, denies discharge, denies dry eye, denies irritation, denies itching, denies pain, denies photophobia, denies loss of peripheral vision, denies loss of vision, denies tunnel vision/blind spots Ears: deny: decreased hearing, ear discharge, earache, tinnitus Ears, nose, mouth and throat: Denies headache, Denies sore throat Breasts: absent: as per HPI, gynecomastia Cardiovascular: Reports decreased exercise tolerance, Reports dyspnea on exertion Respiratory: Reports cough, Reports cough with sputum, Reports dyspnea, Reports wheezing Gastrointestinal: Reports as per HPI, Reports constipation Musculoskeletal: Reports as per HPI Musculoskeletal: absent: ankle pain, ankle stiffness, ankle swelling Integumentary: Reports as per HPI Neurological: Reports as per HPI Psychiatric: Reports as per HPI Endocrine: Reports as per HPI Hematologic/Lymphatic: Reports as per HPI Allergic/Immunologic: Reports as per HPI Past Medical History Past Medical History: Chest Pain / Angina, COPD, Hyperlipidemia, Myocardial Infarction ([place]), Osteoarthritis (OA), Pneumonia Additional Past Medical History / Comment(s): COPD with previous Acute hypoxic respiratory failure with bipap in past, home oxygen normally just at HS,. Chronic hypoxic respiratory failure and utilizes oxygen only at nighttime, history of SVT him a hyperlipidemia, CAD and previous [place], Last Myocardial Infarction Date:: 2008 History of Any Multi-Drug Resistant Organisms: None Reported Past Surgical History: Back Surgery, Heart Catheterization, Hernia Repair, Joint Replacement Additional Past Surgical History / Comment(s): microlaryngoscopy w/ lt vocal cord bx-neg, bronch-lung bx-neg, lt inguinal hernia, low back surgery, bilateral total hip arthroplasties, bilateral cataracts removed. Past Anesthesia/Blood Transfusion Reactions: No Reported Reaction Smoking Status: Current every day smoker - Past Family History Mother Family Medical History: COPD, Diabetes Mellitus Father Family Medical History: COPD, Diabetes Mellitus Brother(s) Family Medical History: Cancer Additional Family Medical History / Comment(s): leukemia Medications and Allergies Home Medications Medication Instructions Recorded Confirmed Type Aspirin 81 mg PO DAILY 07/17/16 03/24/19 History Atorvastatin [Lipitor] 20 mg PO DAILY 07/17/16 03/24/19 History Budesonide-Formot 160-4.5 Mcg 2 puff INHALATION RT-BID 07/17/16 03/24/19 History [Symbicort 160-4.5 Mcg Inhaler] Albuterol Inhaler [Ventolin Hfa 2 puff INHALATION RT-Q6H PRN 07/23/18 03/24/19 History Inhaler] Metoprolol Tartrate [Lopressor] 25 mg PO DAILY 07/23/18 03/24/19 History Albuterol Nebulized [Ventolin 2.5 mg INHALATION RT-TID 03/24/19 03/24/19 History Nebulized] Ibuprofen [Motrin] 800 mg PO TID PRN 03/24/19 03/24/19 History predniSONE 5 mg PO DAILY 03/24/19 03/24/19 History Allergies Allergy/AdvReac Type Severity Reaction Status Date / Time Penicillins Allergy Unknown Verified 03/24/19 07:04 Physical Exam Vitals: Vital Signs Temp Pulse Pulse Resp BP BP Pulse Ox 03/24/19 16:41 80 03/24/19 16:30 78 03/24/19 12:28 82 03/24/19 12:17 80 03/24/19 11:07 97.7 F 72 20 112/52 96 03/24/19 09:05 84 03/24/19 08:51 82 03/24/19 07:38 98.7 F 81 20 116/58 97 03/24/19 05:43 96 03/24/19 05:20 96 03/24/19 05:19 100 03/24/19 05:10 100 03/24/19 05:00 89 25 H 139/70 97 03/24/19 04:18 97 03/24/19 04:08 98.4 F 109 H 28 H 126/56 98 Intake and Output 03/24/19 03/24/19 03/24/19 06:59 14:59 22:59 Other: Voiding Method Urinal Weight 86.183 kg 86.183 kg GENERAL EXAM: Alert, active, comfortable in no apparent distress. HEAD: Normocephalic. EYES: Normal reaction of pupils, equal size. NOSE: Clear with pink turbinates. THROAT: No erythema or exudates. NECK: No masses, no JVD. CHEST: No chest wall deformity. LUNGS: Equal air entry with faint end expiratory wheeze. Diminished. CVS: S1 and S2 normal with no audible murmurs, regular rhythm. ABDOMEN: No hepatosplenomegaly, normal bowel sounds, no guarding or rigidity. SPINE: No scoliosis or deformity SKIN: No rashes CENTRAL NERVOUS SYSTEM: No focal deficits, tone is normal in all 4 extremities. Extremities: There is no significant peripheral edema. No clubbing, no cyanosis. Peripheral pulses are intact. Results - Laboratory Findings CBC and BMP: 03/24/19 04:30 03/24/19 04:30 PT/INR, D-dimer PT 10.3 sec (9.0-12.0) 03/24/19 04:30 INR 1.0 (<1.2) 03/24/19 04:30 Abnormal lab findings: Abnormal Labs 03/24/19 03/24/19 04:30 04:30 WBC 12.7 H RBC 4.27 L Neutrophils # 10.6 H Glucose 186 H - Diagnostic Findings Chest x-ray: image reviewed Assessment and Plan Plan: #1 Acute exacerbation of chronic obstructive pulmonary disease. #2 acute on chronic hypoxic respiratory failure currently on 4 L of oxygen by nasal cannula, attributed to COPD exacerbation #3 Hyperlipidemia. #4 Osteoarthritis. #5 History of SVT Along with history of coronary artery disease #6 history of chronic smoking Plan Agree on the current treatment. The patient is already improving. He is on oral prednisone currently at 40 mg. Continue DuoNeb nebulized she was [id number]. Continue Symbicort. Chest x-ray was reviewed. Offer nicotine patch. Possible discharge in a.m.
[2019-03-24] MEDS: SYMBICORT 160-4.5 MCG INHALER INHALATION SCH (19:58)
[2019-03-24] MEDS: HEPARIN SODIUM,PORCINE 5,000 UNIT/ML 1 ML VIAL SQ SCH (20:44)
[2019-03-24] MEDS: FAMOTIDINE 20 MG TAB PO SCH (20:44)
[2019-03-25] MEDS: IPRATROPIUM-ALBUTEROL 3 ML NEB INHALATION PRN ×2 (03:01→18:59)
[2019-03-25] MEDS: SYMBICORT 160-4.5 MCG INHALER INHALATION SCH ×2 (07:25→18:59)
[2019-03-25] MEDS: ALBUTEROL NEBULIZED 2.5 MG/3 ML INHALATION SCH ×4 (07:25→19:45)
[2019-03-25] MEDS: NICOTINE 14MG/24HR PATCH TRANSDERM SCH (08:33)
[2019-03-25] MEDS: FAMOTIDINE 20 MG TAB PO SCH ×2 (08:34→20:36)
[2019-03-25] MEDS: ASPIRIN 81 MG PO SCH (08:34)
[2019-03-25] MEDS: ATORVASTATIN 20 MG TAB PO SCH (08:35)
[2019-03-25] MEDS: predniSONE 20 MG TAB PO SCH (08:35)
[2019-03-25] MEDS: HEPARIN SODIUM,PORCINE 5,000 UNIT/ML 1 ML VIAL SQ SCH ×2 (08:35→20:36)
[2019-03-25] MEDS: METOPROLOL TARTRATE 25 MG TAB PO SCH (08:36)
[2019-03-25] MEDS: guaiFENesin 600 MG TABLET.ER PO SCH ×2 (08:36→20:36)
--- NOTE | 2019-03-25 12:24 | P.PN ---
Subjective Progress Note Date: 03/25/19 71-year-old male patient with known history of COPD whereas been followed up with us in the office and he carries an FEV1 of 46% of predicted. He is a chronic smoker and he has been maintained on Symbicort 2 puffs twice a day and Proventil rescue inhaler on an as-needed basis. The patient has been seeing Dr. Rubio on a regular basis. During his last dilatation on 03/18/2019 the patient was given a Depo-Medrol shot for an acute COPD exacerbation. His condition got worse and for that reason. Coming into the hospital for an acute COPD exacerbation. He typically is on 2 L of oxygen at home. Currently is on 4 L of oxygen by nasal cannula. His chest x-ray shows mild pulmonary interstitial joanne a/airspace opacities in both lungs. White cell count is at 12.7. No angina. No palpitation. Troponins are negative. BNP is not elevated. Influenza screen is negative. He is a chronic smoker and continues to smoke around one pack of cigarettes on a daily basis. The patient is demented on 5 mg of prednisone on a chronic basis. On today's evaluation of 03/25/2019 the patient is still having increased cough and bringing up thick yellowish sputum. Still short of breath with limited amount of activity. No fever or chills. Note that he has severe COPD and is a chronic smoker. No chest pain. No nausea or vomiting. He has been maintained on 5 mg of prednisone and during this current hospitalization he was bumped up to 40 mg of prednisone a daily basis. Nevertheless, limited improvement since yesterday. Objective - Vital Signs Vital signs: Vital Signs Temp 97.4 F L 03/25/19 12:17 Pulse 76 03/25/19 12:17 Resp 17 03/25/19 12:17 BP 125/67 03/25/19 12:17 Pulse Ox 98 03/25/19 12:17 Intake & Output 03/24/19 03/25/19 03/25/19 18:59 06:59 18:59 Intake Total 1480 Output Total 400 1500 Balance -400 -20 Weight 86.183 kg Intake: Oral 1480 Output: Urine 400 1500 Other: Voiding Method Urinal Urinal Urinal # Voids 1 - Exam GENERAL EXAM: Alert, active, comfortable in no apparent distress. HEAD: Normocephalic. EYES: Normal reaction of pupils, equal size. NOSE: Clear with pink turbinates. THROAT: No erythema or exudates. NECK: No masses, no JVD. CHEST: No chest wall deformity. LUNGS: Equal air entry with faint end expiratory wheeze. Diminished. CVS: S1 and S2 normal with no audible murmurs, regular rhythm. ABDOMEN: No hepatosplenomegaly, normal bowel sounds, no guarding or rigidity. SPINE: No scoliosis or deformity SKIN: No rashes CENTRAL NERVOUS SYSTEM: No focal deficits, tone is normal in all 4 extremities. Extremities: There is no significant peripheral edema. No clubbing, no cyanosis. Peripheral pulses are intact. - Labs CBC & Chem 7: 03/24/19 04:30 03/24/19 04:30 Labs: Microbiology - Last 24 Hours (Table) 03/24/19 04:30 Blood Culture - Preliminary Blood No Growth after 24 hours Assessment and Plan Plan: #1 Acute exacerbation of chronic obstructive pulmonary disease. #2 acute on chronic hypoxic respiratory failure currently on 4 L of oxygen by nasal cannula, attributed to COPD exacerbation #3 Hyperlipidemia. #4 Osteoarthritis. #5 History of SVT Along with history of coronary artery disease #6 history of chronic smoking Plan Obtain sputum Gram stain and culture. There is production of thick purulent sputum on today's evaluation. This will be collected and samples. Put the patient on Levaquin 750 mg by mouth on a daily basis. The first dose will be given right now. Discontinue the oral prednisone and put the patient IV Solu- Medrol. Continue the bronchodilators. We'll continue to follow.
[2019-03-25] MEDS ORDERED: methylPREDNISolone SOD SUCCI 125 MG/2 ML VIAL IV SCH (12:45)
[2019-03-25] MEDS: LEVOFLOXACIN 750 MG TAB PO SCH (12:59)
--- NOTE | 2019-03-25 14:56 | P.PN ---
Subjective patient is admitted for aggressive exacerbation patient is comparing of articulate sputum production. Patient was switched to IV steroids and was st arted on levofloxacin by pulmonology. Patient is still quite a bit short of breath. Does have some wheezing on exam. Constitutional: Denied any fatigue denied any fever. Cardio vascular: denied any chest pain, palpitations Gastrointestinal denied any nausea vomiting Pulmonary: Denied any shortness of breath cough Neurologic denied any new focal deficits All inpatient medications were reviewed and appropriate changes in these medications as dictated in the interval history and assessment and plan. Objective - Vital Signs Vital signs: Vital Signs Temp 97.4 F L 03/25/19 12:17 Pulse 76 03/25/19 12:17 Resp 17 03/25/19 12:17 BP 125/67 03/25/19 12:17 Pulse Ox 98 03/25/19 12:17 Intake & Output 03/24/19 03/25/19 03/25/19 18:59 06:59 18:59 Intake Total 1480 Output Total 400 1500 Balance -400 -20 Weight 86.183 kg Intake: Oral 1480 Output: Urine 400 1500 Other: Voiding Method Urinal Urinal Urinal # Voids 1 - Exam PHYSICAL EXAMINATION: GENERAL: The patient is alert and oriented x3, not in any acute distress. Well developed, well nourished. HEENT: Pupils are round and equally reacting to light. EOMI. No scleral icterus. No conjunctival pallor. Normocephalic, atraumatic. No pharyngeal erythema. No thyromegaly. CARDIOVASCULAR: S1 and S2 present. No murmurs, rubs, or gallops. PULMONARY: expiratory wheezing ABDOMEN: Soft, nontender, nondistended, normoactive bowel sounds. No palpable organomegaly. MUSCULOSKELETAL: No joint swelling or deformity. EXTREMITIES: No cyanosis, clubbing, or pedal edema. NEUROLOGICAL: Gross neurological examination did not reveal any focal deficits. SKIN: No rashes. - Labs CBC & Chem 7: 03/24/19 04:30 03/24/19 04:30 Labs: Microbiology - Last 24 Hours (Table) 03/24/19 04:30 Blood Culture - Preliminary Blood No Growth after 24 hours Assessment and Plan Plan: -Acute on chronic hypercapnic respiratory failure secondary to COPD exacerbation patient can use to smoke smoking cessation counseling was provided patient was started on systemic steroids and patient treatments which will be continued.patient was started on levofloxacin by pulmonary -Continued nicotine use: Counseling was provided -Coronary artery disease 10-hyperlipidemia -Osteoarthritis For above-mentioned chronic medical problems patient will be resumed on appropriate home medications DVT prophylaxis subcutaneous heparin and GI prophylaxis with Pepcid
[2019-03-25] MEDS: methylPREDNISolone SOD SUCCI 40 MG/ML 1 ML VIAL IV SCH (20:36)
[2019-03-26] MEDS: IPRATROPIUM-ALBUTEROL 3 ML NEB INHALATION PRN (01:25)
[2019-03-26] MEDS: methylPREDNISolone SOD SUCCI 40 MG/ML 1 ML VIAL IV SCH ×2 (05:07→12:28)
[2019-03-26] MEDS: ALBUTEROL NEBULIZED 2.5 MG/3 ML INHALATION SCH ×2 (08:32→11:47)
[2019-03-26] MEDS: SYMBICORT 160-4.5 MCG INHALER INHALATION SCH (08:32)
[2019-03-26] MEDS: METOPROLOL TARTRATE 25 MG TAB PO SCH (08:34)
[2019-03-26] MEDS: ASPIRIN 81 MG PO SCH (08:34)
[2019-03-26] MEDS: guaiFENesin 600 MG TABLET.ER PO SCH (08:34)
[2019-03-26] MEDS: FAMOTIDINE 20 MG TAB PO SCH (08:34)
[2019-03-26] MEDS: ATORVASTATIN 20 MG TAB PO SCH (08:34)
[2019-03-26] MEDS: HEPARIN SODIUM,PORCINE 5,000 UNIT/ML 1 ML VIAL SQ SCH (08:34)
[2019-03-26] MEDS: NICOTINE 14MG/24HR PATCH TRANSDERM SCH (08:35)
[2019-03-26 11:56] VITALS: BP 134/61; RESP 17; TEMP 98.7
[2019-03-26 12:00] VITALS: PULSE 78
--- NOTE | 2019-03-26 12:27 | P.DS ---
Providers Date of admission: 03/24/19 06:14 Attending physician: Beth Reed Consults: 03/24/19 13:15 Consult Physician Routine Consulting Provider: Isael Clayton Consult Reason/Comments: COPD Do you want consulting provider notified?: Yes Primary care physician: Britni Peres Hospital Course: Patient admitted for COPD exacerbation patient is feeling much better today patient is saturating at 94% on room air upon ambulation patient's urine cultures are showing gram-positive cocci in pairs and chains probably streptococci pneumococci. Patient will be discharged on doxycycline for this. Patient was discharged on weaning dose of steroids. Pulmonology evaluated the patient. PHYSICAL EXAMINATION: GENERAL: The patient is alert and oriented x3, not in any acute distress. Well developed, well nourished. HEENT: Pupils are round and equally reacting to light. EOMI. No scleral icterus. No conjunctival pallor. Normocephalic, atraumatic. No pharyngeal erythema. No thyromegaly. CARDIOVASCULAR: S1 and S2 present. No murmurs, rubs, or gallops. PULMONARY: Chest is clear to auscultation, no wheezing or crackles. ABDOMEN: Soft, nontender, nondistended, normoactive bowel sounds. No palpable organomegaly. MUSCULOSKELETAL: No joint swelling or deformity. EXTREMITIES: No cyanosis, clubbing, or pedal edema. NEUROLOGICAL: Gross neurological examination did not reveal any focal deficits. SKIN: No rashes. The rest of the chronic medical problems hospice physician, please refer to my dictation of progress note from yesterday Patient Condition at Discharge: Stable Plan - Discharge Summary Discharge Rx Participant: No New Discharge Prescriptions: New predniSONE 10 mg PO DAILY #30 tab Omeprazole [PriLOSEC] 40 mg PO -BRKFST #14 capsule. Ipratropium-Albuterol Nebulize [Duoneb 0.5 mg-3 mg/3 ml Soln] 3 ml INHALATION QID 30 Days #6 box Continue Atorvastatin [Lipitor] 20 mg PO DAILY Aspirin 81 mg PO DAILY Budesonide-Formot 160-4.5 Mcg [Symbicort 160-4.5 Mcg Inhaler] 2 puff INHALATION RT-BID Metoprolol Tartrate [Lopressor] 25 mg PO DAILY Albuterol Inhaler [Ventolin Hfa Inhaler] 2 puff INHALATION RT-Q6H PRN PRN Reason: Shortness Of Breath Ibuprofen [Motrin] 800 mg PO TID PRN PRN Reason: Pain predniSONE 5 mg PO DAILY Albuterol Nebulized [Ventolin Nebulized] 2.5 mg INHALATION RT-TID Discharge Medication List Aspirin 81 mg PO DAILY 07/17/16 [History] Atorvastatin [Lipitor] 20 mg PO DAILY 07/17/16 [History] Budesonide-Formot 160-4.5 Mcg [Symbicort 160-4.5 Mcg Inhaler] 2 puff INHALATION RT-BID 07/17/16 [History] Albuterol Inhaler [Ventolin Hfa Inhaler] 2 puff INHALATION RT-Q6H PRN 07/23/18 [ History] Metoprolol Tartrate [Lopressor] 25 mg PO DAILY 07/23/18 [History] Albuterol Nebulized [Ventolin Nebulized] 2.5 mg INHALATION RT-TID 03/24/19 [History] Ibuprofen [Motrin] 800 mg PO TID PRN 03/24/19 [History] predniSONE 5 mg PO DAILY 03/24/19 [History] Ipratropium-Albuterol Nebulize [Duoneb 0.5 mg-3 mg/3 ml Soln] 3 ml INHALATION QID 30 Days #6 box 03/26/19 [Rx] Omeprazole [PriLOSEC] 40 mg PO AC-BRKFST #14 capsule. 03/26/19 [Rx] predniSONE 10 mg PO DAILY #30 tab 03/26/19 [Rx] Follow up Appointment(s)/Referral(s): Britni Peres MD [Primary Care Provider] - 3 Days (The office is closed please call friday to make your appointment.) Discharge Disposition: HOME SELF-CARE
[2019-03-26] MEDS: LEVOFLOXACIN 750 MG TAB PO SCH (12:28)
--- NOTE | 2019-03-26 12:56 | P.PN ---
Subjective Progress Note Date: 03/26/19 71-year-old male patient with known history of COPD whereas been followed up with us in the office and he carries an FEV1 of 46% of predicted. He is a chronic smoker and he has been maintained on Symbicort 2 puffs twice a day and Proventil rescue inhaler on an as-needed basis. The patient has been seeing Dr. Rubio on a regular basis. During his last dilatation on 03/18/2019 the patient was given a Depo-Medrol shot for an acute COPD exacerbation. His condition got worse and for that reason. Coming into the hospital for an acute COPD exacerbation. He typically is on 2 L of oxygen at home. Currently is on 4 L of oxygen by nasal cannula. His chest x-ray shows mild pulmonary interstitial joanne a/airspace opacities in both lungs. White cell count is at 12.7. No angina. No palpitation. Troponins are negative. BNP is not elevated. Influenza screen is negative. He is a chronic smoker and continues to smoke around one pack of cigarettes on a daily basis. The patient is demented on 5 mg of prednisone on a chronic basis. On today's evaluation of 03/25/2019 the patient is still having increased cough and bringing up thick yellowish sputum. Still short of breath with limited amount of activity. No fever or chills. Note that he has severe COPD and is a chronic smoker. No chest pain. No nausea or vomiting. He has been maintained on 5 mg of prednisone and during this current hospitalization he was bumped up to 40 mg of prednisone a daily basis. Nevertheless, limited improvement since yesterday. Today's evaluation of 03/26/2019, the patient is feeling better. The patient is less short of breath unless bronchus spastic and wheezy compared to yesterday. Note that he was having some increased difficulty breathing yesterday. I put him on IV Solu-Medrol. I also put him on oral Levaquin 750 mg by mouth daily. On today's evaluation, his condition is improved. Sputum cultures still pending for now. Sputum sample was collected. No fever. No chills. Discharge plann ing is in progress however going to raises patient home nebulizer. Objective - Vital Signs Vital signs: Vital Signs Temp 98.7 F 03/26/19 11:55 Pulse 78 03/26/19 12:00 Resp 17 03/26/19 11:55 BP 134/61 03/26/19 11:55 Pulse Ox 92 L 03/26/19 11:55 Intake & Output 03/25/19 03/26/19 03/26/19 18:59 06:59 18:59 Output Total 720 Balance -720 Output: Urine 720 Other: Voiding Method Urinal Urinal Toilet Urinal # Voids 4 1 # Bowel Movements 1 - Exam GENERAL EXAM: Alert, active, comfortable in no apparent distress. HEAD: Normocephalic. EYES: Normal reaction of pupils, equal size. NOSE: Clear with pink turbinates. THROAT: No erythema or exudates. NECK: No masses, no JVD. CHEST: No chest wall deformity. LUNGS: Equal air entry with faint end expiratory wheeze. Diminished. CVS: S1 and S2 normal with no audible murmurs, regular rhythm. ABDOMEN: No hepatosplenomegaly, normal bowel sounds, no guarding or rigidity. SPINE: No scoliosis or deformity SKIN: No rashes CENTRAL NERVOUS SYSTEM: No focal deficits, tone is normal in all 4 extremities. Extremities: There is no significant peripheral edema. No clubbing, no cyanosis. Peripheral pulses are intact. - Labs CBC & Chem 7: 03/24/19 04:30 03/24/19 04:30 Labs: Microbiology - Last 24 Hours (Table) 03/24/19 04:30 Blood Culture - Preliminary Blood No Growth after 48 hours 03/25/19 13:00 Gram Stain - Preliminary Sputum Sputum Culture - Preliminary Assessment and Plan Plan: #1 Acute exacerbation of chronic obstructive pulmonary disease. Clinically the patient is improving on today's evaluation. #2 acute on chronic hypoxic respiratory failure currently on 4 L of oxygen by nasal cannula, attributed to COPD exacerbation #3 Hyperlipidemia. #4 Osteoarthritis. #5 History of SVT Along with history of coronary artery disease #6 history of chronic smoking Plan The sputum sample has been collected and the cultures still pending for now. Clinically improved. The patient will be discharged home on a course of Levaquin and a prednisone taper. Continue Symbicort. Smoking cessation counseling was done. He will need a new nebulizer and interrupted a S3 basis. We'll continue to follow on an outpatient basis.
== END 2019-03-26 16:28 | disposition home or self-care (01) ==
LOC: EC 04:00 → 3NMEDONC 06:14
PROVIDERS: ADMIT Hospitalist; ATTEND Hospitalist
DX: J44.1 Chronic obstructive pulmonary disease with (acute) exacerbation (principal); J96.21 Acute and chronic respiratory failure with hypoxia; F17.210 Nicotine dependence, cigarettes, uncomplicated; E78.5 Hyperlipidemia, unspecified; M19.90 Unspecified osteoarthritis, unspecified site; I47.1 Supraventricular tachycardia; I25.119 Atherosclerotic heart disease of native coronary artery with unspecified angina pectoris; I10 Essential (primary) hypertension; I25.2 Old myocardial infarction; M19.011 Primary osteoarthritis, right shoulder; E66.9 Obesity, unspecified; Z68.28 Body mass index [BMI] 28.0-28.9, adult; Z96.643 Presence of artificial hip joint, bilateral; Z98.42 Cataract extraction status, left eye; Z98.41 Cataract extraction status, right eye; Z82.5 Family history of asthma and other chronic lower respiratory diseases; Z83.3 Family history of diabetes mellitus; Z80.6 Family history of leukemia; Z79.1 Long term (current) use of non-steroidal anti-inflammatories (NSAID); Z79.82 Long term (current) use of aspirin; Z99.81 Dependence on supplemental oxygen; Z79.51 Long term (current) use of inhaled steroids; Z79.52 Long term (current) use of systemic steroids; Z79.899 Other long term (current) drug therapy; Z88.0 Allergy status to penicillin
CPT/HCPCS: 96376 ×2; 96372 ×3; 96374; 99285; 36415; 94640 ×6; 93005; 83880; 80053; 83735; 84484; 85025; 85610; 85730; 87040; 87070; 87205; 87502; 71046; G0378 ×3; S4990 ×3; J1644 ×3; J2920 ×2; J2930 ×2; J7512 ×2

== ENCOUNTER 2019-05-07 12:35 | Inpatient (IN) | payer MEDICARE ==
[2019-05-07] MEDS ORDERED: methylPREDNISolone SOD SUCCI 125 MG/2 ML VIAL IV STA (13:28)
[2019-05-07] MEDS ORDERED: IPRATROPIUM-ALBUTEROL 3 ML NEB INHALATION STA (13:28)
--- NOTE | 2019-05-07 13:30 | ED ---
General Adult HPI - General Chief complaint: Shortness of Breath Stated complaint: SOB Time Seen by Provider: 05/07/19 12:56 Source: patient, family, RN notes reviewed Mode of arrival: wheelchair Limitations: no limitations - History of Present Illness Initial comments: Patient is a pleasant 73-year-old male presenting to the emergency department with difficulty breathing. Symptoms have progressed over the past several weeks. Patient does have cough with occasional productive dark sputum. No fevers. Dyspnea does worsen with exertion. No leg pain or leg swelling. Patient does have history of similar symptoms previously associated with COPD. - Related Data Home Medications Medication Instructions Recorded Confirmed Aspirin 81 mg PO DAILY 07/17/16 03/24/19 Atorvastatin [Lipitor] 20 mg PO DAILY 07/17/16 03/24/19 Budesonide-Formot 160-4.5 Mcg 2 puff INHALATION RT-BID 07/17/16 03/24/19 [Symbicort 160-4.5 Mcg Inhaler] Albuterol Inhaler [Ventolin Hfa 2 puff INHALATION RT-Q6H PRN 07/23/18 03/24/19 Inhaler] Metoprolol Tartrate [Lopressor] 25 mg PO DAILY 07/23/18 03/24/19 Albuterol Nebulized [Ventolin 2.5 mg INHALATION RT-TID 03/24/19 03/24/19 Nebulized] Ibuprofen [Motrin] 800 mg PO TID PRN 03/24/19 03/24/19 predniSONE 5 mg PO DAILY 03/24/19 03/24/19 Previous Rx's Medication Instructions Recorded Ipratropium-Albuterol Nebulize 3 ml INHALATION QID 30 Days #6 box 03/26/19 [Duoneb 0.5 mg-3 mg/3 ml Soln] Omeprazole [PriLOSEC] 40 mg PO AC-BRKFST #14 capsule. 03/26/19 predniSONE 10 mg PO DAILY #30 tab 03/26/19 Allergies Allergy/AdvReac Type Severity Reaction Status Date / Time Penicillins Allergy Unknown Verified 03/24/19 07:04 Review of Systems ROS Statement: Those systems with pertinent positive or pertinent negative responses have been documented in the HPI. ROS Other: All systems not noted in ROS Statement are negative. Constitutional: Denies: fever Eyes: Denies: eye pain ENT: Denies: throat pain Respiratory: Reports: cough, dyspnea Cardiovascular: Denies: palpitations Endocrine: Denies: fatigue Gastrointestinal: Denies: abdominal pain Genitourinary: Denies: dysuria Musculoskeletal: Denies: back pain Skin: Denies: rash Neurological: Denies: weakness Past Medical History Past Medical History: Chest Pain / Angina, COPD, Hyperlipidemia, Myocardial Infarction ([place]), Osteoarthritis (OA), Pneumonia Additional Past Medical History / Comment(s): COPD with previous Acute hypoxic respiratory failure with bipap in past, home oxygen normally just at HS,. Chronic hypoxic respiratory failure and utilizes oxygen only at nighttime, history of SVT him a hyperlipidemia, CAD and previous [place], Last Myocardial Infarction Date:: 2008 History of Any Multi-Drug Resistant Organisms: None Reported Past Surgical History: Back Surgery, Heart Catheterization, Hernia Repair, Joint Replacement Additional Past Surgical History / Comment(s): microlaryngoscopy w/ lt vocal cord bx-neg, bronch-lung bx-neg, lt inguinal hernia, low back surgery, bilateral total hip arthroplasties, bilateral cataracts removed. Past Anesthesia/Blood Transfusion Reactions: No Reported Reaction Past Psychological History: No Psychological Hx Reported Smoking Status: Current every day smoker Past Alcohol Use History: Rare Past Drug Use History: None Reported - Past Family History Mother Family Medical History: COPD, Diabetes Mellitus Father Family Medical History: COPD, Diabetes Mellitus Brother(s) Family Medical History: Cancer Additional Family Medical History / Comment(s): leukemia General Exam Limitations: no limitations General appearance: alert, in no apparent distress Head exam: Present: normocephalic Eye exam: Present: normal appearance, PERRL ENT exam: Present: normal oropharynx Neck exam: Present: normal inspection Respiratory exam: Present: decreased breath sounds Cardiovascular Exam: Present: regular rate, normal rhythm GI/Abdominal exam: Present: soft. Absent: tenderness Extremities exam: Present: normal inspection. Absent: pedal edema, calf tendern ess Back exam: Present: normal inspection Neurological exam: Present: alert Psychiatric exam: Present: normal affect, normal mood Skin exam: Present: normal color Course Vital Signs 05/07/19 05/07/19 05/07/19 12:47 12:50 13:29 Temperature 97.8 F Pulse Rate 80 Respiratory 18 20 Rate Blood Pressure 167/75 O2 Sat by Pulse 96 97 Oximetry 05/07/19 05/07/19 05/07/19 13:30 13:49 13:50 Temperature Pulse Rate 80 Respiratory Rate Blood Pressure 138/77 145/71 O2 Sat by Pulse 97 95 Oximetry 05/07/19 05/07/19 13:58 14:00 Temperature Pulse Rate 84 Respiratory Rate Blood Pressure 145/71 O2 Sat by Pulse 95 Oximetry EKG Findings - EKG Comments: EKG Findings:: Normal sinus rhythm 84. RI 192. QRS 90. QT 376. QTc 444. Normal axis. Normal QRS. No acute ST change. Medical Decision Making - Medical Decision Making Patient reevaluated with only slight improvement. Patient and family updated on results and plan. Dr. Leon was notified for admission covering for Dr. Peres. - Lab Data Result diagrams: 05/07/19 13:25 05/07/19 13:25 Lab Results 05/07/19 05/07/19 05/07/19 Range/Units 13:25 13:25 13:25 WBC 8.1 (3.8-10.6) k/uL RBC 4.60 (4.30-5.90) m/uL Hgb 13.8 (13.0-17.5) gm/dL Hct 41.8 (39.0-53.0) % MCV 90.8 (80.0-100.0) fL MCH 30.1 (25.0-35.0) pg MCHC 33.1 (31.0-37.0) g/dL RDW 15.2 (11.5-15.5) % Plt Count 248 (150-450) k/uL Neutrophils % 87 % Lymphocytes % 8 % Monocytes % 4 % Eosinophils % 0 % Basophils % 1 % Neutrophils # 7.0 (1.3-7.7) k/uL Lymphocytes # 0.6 L (1.0-4.8) k/uL Monocytes # 0.3 (0-1.0) k/uL Eosinophils # 0.0 (0-0.7) k/uL Basophils # 0.1 (0-0.2) k/uL PT 10.0 (9.0-12.0) sec INR 0.9 (<1.2) APTT 24.7 (22.0-30.0) sec Sodium 138 (137-145) mmol/L Potassium 5.4 H (3.5-5.1) mmol/L Chloride 103 (98-107) mmol/L Carbon Dioxide 24 (22-30) mmol/L Anion Gap 11 mmol/L BUN 13 (9-20) mg/dL Creatinine 0.95 (0.66-1.25) mg/dL Est GFR (CKD-EPI)AfAm >90 (>60 ml/min/1.73 sqM) Est GFR (CKD-EPI)NonAf 80 (>60 ml/min/1.73 sqM) Glucose 130 H (74-99) mg/dL Calcium 9.4 (8.4-10.2) mg/dL Total Bilirubin 1.0 (0.2-1.3) mg/dL AST 38 (17-59) U/L ALT 20 (4-49) U/L Alkaline Phosphatase 61 (38-126) U/L Troponin I (0.000-0.034) ng/mL Total Protein 7.8 (6.3-8.2) g/dL Albumin 4.4 (3.5-5.0) g/dL 05/07/19 Range/Units 13:25 WBC (3.8-10.6) k/uL RBC (4.30-5.90) m/uL Hgb (13.0-17.5) gm/dL Hct (39.0-53.0) % MCV (80.0-100.0) fL MCH (25.0-35.0) pg MCHC (31.0-37.0) g/dL RDW (11.5-15.5) % Plt Count (150-450) k/uL Neutrophils % % Lymphocytes % % Monocytes % % Eosinophils % % Basophils % % Neutrophils # (1.3-7.7) k/uL Lymphocytes # (1.0-4.8) k/uL Monocytes # (0-1.0) k/uL Eosinophils # (0-0.7) k/uL Basophils # (0-0.2) k/uL PT (9.0-12.0) sec INR (<1.2) APTT (22.0-30.0) sec Sodium (137-145) mmol/L Potassium (3.5-5.1) mmol/L Chloride (98-107) mmol/L Carbon Dioxide (22-30) mmol/L Anion Gap mmol/L BUN (9-20) mg/dL Creatinine (0.66-1.25) mg/dL Est GFR (CKD-EPI)AfAm (>60 ml/min/1.73 sqM) Est GFR (CKD-EPI)NonAf (>60 ml/min/1.73 sqM) Glucose (74-99) mg/dL Calcium (8.4-10.2) mg/dL Total Bilirubin (0.2-1.3) mg/dL AST (17-59) U/L ALT (4-49) U/L Alkaline Phosphatase (38-126) U/L Troponin I <0.012 (0.000-0.034) ng/mL Total Protein (6.3-8.2) g/dL Albumin (3.5-5.0) g/dL - Radiology Data Radiology results: image reviewed (X-ray shows chronic changes. No acute process.) Disposition Clinical Impression: Acute exacerbation of chronic obstructive airways disease Disposition: ADMITTED IP TO THIS HOSP Is patient prescribed a controlled substance at d/c from ED?: No Referrals: Britni Peres MD [Primary Care Provider] - 1-2 days Decision Time: 15:01
[2019-05-07 14:06] LABS: Basophils # (A) 0.1 k/uL (0-0.2); Basophils % (A) 1 %; Eosinophils % (A) 0 %; HCT 41.8 % (39.0-53.0); HGB 13.8 gm/dL (13.0-17.5); Lymphocytes # (A) 0.6 k/uL (1.0-4.8); Lymphocytes % (A) 8 %; MCH 30.1 pg (25.0-35.0); MCHC 33.1 g/dL (31.0-37.0); MCV 90.8 fL (80.0-100.0); Mean Platelet Volume 8.8; Monocytes # (A) 0.3 k/uL (0-1.0); Monocytes % (A) 4 %; Neutrophils % (A) 87 %; Platelet Count 248 k/uL (150-450); RDW 15.2 % (11.5-15.5); WBC 8.1 k/uL (3.8-10.6)
[2019-05-07 14:20] LABS: ALT 20 U/L (4-49); AST 38 U/L (17-59); African American GFR (CKD) >90 (>60 ml/min/1.73 sqM); Albumin 4.4 g/dL (3.5-5.0); Alkaline Phosphatase 61 U/L (38-126); Anion Gap 11 mmol/L; Blood Urea Nitrogen 13 mg/dL (9-20); Calcium 9.4 mg/dL (8.4-10.2); Carbon Dioxide 24 mmol/L (22-30); Chloride 103 mmol/L (98-107); Glucose 130 mg/dL (74-99); INR 0.9 (<1.2); Non-African American GFR(CKD) 80 (>60 ml/min/1.73 sqM); Partial Thromboplastin Time 24.7 sec (22.0-30.0); Sodium 138 mmol/L (137-145); Total Protein 7.8 g/dL (6.3-8.2)
[2019-05-07 14:23] LABS: Potassium 5.4 mmol/L (3.5-5.1)
--- NOTE | 2019-05-07 14:27 | XR ---
EXAMINATION TYPE: XR chest 2V DATE OF EXAM: 05/07/2019 COMPARISON: Chest x-ray March 24, 2019. HISTORY: Difficulty in breathing. TECHNIQUE: Frontal and lateral views of the chest are obtained. FINDINGS: Chronic emphysematous and parenchymal fibrotic changes bilaterally. Persistent small right pleural th ickening thought present. There is no new suspicious focal air space opacity or pneumothorax seen. T he cardiac silhouette size remains upper limits of normal with atherosclerotic thoracic aorta. Avascu lar necrosis bilateral humeral heads redemonstrated. IMPRESSION: Chronic changes as detailed above without new suspicious acute pulmonary process.
[2019-05-07] MEDS: IPRATROPIUM-ALBUTEROL 3 ML NEB INHALATION SCH ×2 (16:01→19:34)
[2019-05-07] MEDS ORDERED: IBUPROFEN 800 MG TAB PO PRN (16:37)
[2019-05-07 17:02] LABS: Glucose,Whole Blood 152 mg/dL (75-99)
--- NOTE | 2019-05-07 17:24 | P.HPIM ---
History of Present Illness Patient is a pleasant 71-year-old male came with complaints of shortness of breath was started the few days ago much worse for last couple days patient didn't sleep much for last couple days patient was comparing of wheezing does have history of COPD uses 3 and half liters of oxygen chest x-ray did not show any significant pneumonia patient denied any fever chills patient is comparing of cough with the yellowish to greenish sputum production Review of Systems REVIEW OF SYSTEMS: CONSTITUTIONAL: No fever, no malaise, no fatigue. HEENT: No recent visual problems or hearing problems. Denied any sore throat. CARDIOVASCULAR: No chest pain, orthopnea, PND, no palpitations, no syncope. PULMONARY: As mentioned in HPI GASTROINTESTINAL: No diarrhea, no nausea, no vomiting, no abdominal pain. NEUROLOGICAL: No headaches, no weakness, no numbness. HEMATOLOGICAL: Denies any bleeding or petechiae. GENITOURINARY: Denies any burning micturition, frequency, or urgency. MUSCULOSKELETAL/RHEUMATOLOGICAL: Denies any joint pain, swelling, or any muscle pain. ENDOCRINE: Denies any polyuria or polydipsia. The rest of the 14-point review of systems is negative. Past Medical History Past Medical History: Chest Pain / Angina, COPD, Diabetes Mellitus, Hyperlipi demia, Myocardial Infarction ([place]), Osteoarthritis (OA), Pneumonia, Prostate Disorder, Supraventricular Tachycardia (SVT) Additional Past Medical History / Comment(s): Chronic hypoxic respiratory failure with home oxygen pt mostly just wears at night, past acute hypoxic respi ratory failure requiring bipap, newly diagnosed NIDDM type II, BPH, UTI Last Myocardial Infarction Date:: 2008 History of Any Multi-Drug Resistant Organisms: None Reported Past Surgical History: Back Surgery, Heart Catheterization, Hernia Repair, Joint Replacement Additional Past Surgical History / Comment(s): microlaryngoscopy w/ lt vocal cord bx-neg, bronch-lung bx-neg, lt inguinal hernia, low back surgery, bilateral total hip arthroplasties, bilateral cataracts removed. Past Anesthesia/Blood Transfusion Reactions: No Reported Reaction Smoking Status: Current every day smoker - Past Family History Mother Family Medical History: COPD, Diabetes Mellitus Father Family Medical History: COPD, Diabetes Mellitus Brother(s) Family Medical History: Cancer Additional Family Medical History / Comment(s): leukemia Medications and Allergies Home Medications Medication Instructions Recorded Confirmed Type Aspirin 81 mg PO DAILY 07/17/16 05/07/19 History Atorvastatin [Lipitor] 20 mg PO DAILY 07/17/16 05/07/19 History Budesonide-Formot 160-4.5 Mcg 2 puff INHALATION RT-BID 07/17/16 05/07/19 History [Symbicort 160-4.5 Mcg Inhaler] Metoprolol Tartrate [Lopressor] 25 mg PO DAILY 07/23/18 05/07/19 History Ibuprofen [Motrin] 800 mg PO TID PRN 03/24/19 05/07/19 History Ipratropium-Albuterol Nebulize 3 ml INHALATION RT-QID 05/07/19 05/07/19 History [Duoneb 0.5 mg-3 mg/3 ml Soln] Sertraline HCl [Zoloft] 25 mg PO HS 05/07/19 05/07/19 History Sulfamethox-Tmp 800-160Mg [Bactrim 1 tab PO Q12HR 05/07/19 05/07/19 History DS 800-160 mg] Tamsulosin HCl [Flomax] 0.4 mg PO DAILY 05/07/19 05/07/19 History metFORMIN HCL 500 mg PO BID 05/07/19 05/07/19 History predniSONE See Taper PO DAILY 05/07/19 05/07/19 History Allergies Allergy/AdvReac Type Severity Reaction Status Date / Time Penicillins Allergy Unknown Verified 03/24/19 07:04 Physical Exam Vitals: Vital Signs Temp Pulse Pulse Resp BP BP Pulse Ox 05/07/19 16:33 97.7 F 77 18 132/70 97 05/07/19 15:51 20 05/07/19 15:30 147/85 05/07/19 15:00 75 20 150/70 97 05/07/19 14:30 143/71 97 05/07/19 14:00 79 20 147/85 95 05/07/19 13:58 84 05/07/19 13:50 145/71 95 05/07/19 13:49 80 05/07/19 13:30 138/77 97 05/07/19 13:29 97 05/07/19 12:50 20 05/07/19 12:47 97.8 F 80 18 167/75 96 Intake and Output 05/07/19 05/07/19 05/07/19 06:59 14:59 22:59 Other: Weight 82.554 kg 82.554 kg PHYSICAL EXAMINATION: GENERAL: The patient is alert and oriented x3, not in any acute distress. Well developed, well nourished. HEENT: Pupils are round and equally reacting to light. EOMI. No scleral icterus. No conjunctival pallor. Normocephalic, atraumatic. No pharyngeal erythema. No thyromegaly. CARDIOVASCULAR: S1 and S2 present. No murmurs, rubs, or gallops. PULMONARY: Decreased air entry ABDOMEN: Soft, nontender, nondistended, normoactive bowel sounds. No palpable organomegaly. MUSCULOSKELETAL: No joint swelling or deformity. EXTREMITIES: No cyanosis, clubbing, or pedal edema. NEUROLOGICAL: Gross neurological examination did not reveal any focal deficits. SKIN: No rashes. Results CBC & Chem 7: 05/07/19 13:25 05/07/19 13:25 Labs: Abnormal Lab Results - Last 24 Hours (Table) 05/07/19 05/07/19 05/07/19 Range/Units 13:25 13:25 16:59 Lymphocytes # 0.6 L (1.0-4.8) k/uL Potassium 5.4 H (3.5-5.1) mmol/L Glucose 130 H (74-99) mg/dL POC Glucose (mg/dL) 152 H (75-99) mg/dL Thrombosis Risk Factor Assmnt - Choose All That Apply Any of the Below Risk Factors Present?: Yes Each Factor Represents 1 point: Abnormal pulmonary function (COPD), Obesity (BMI >25), Serious lung disease incl. pneumonia (< 1month) Other Risk Factors: Yes Each Risk Factor Represents 2 Points: Age 61-74 years Other congenital or acquired thrombophilia - If yes, enter type in comment: No Thrombosis Risk Factor Assessment Total Risk Factor Score: 5 Thrombosis Risk Factor Assessment Level: High Risk Assessment and Plan Plan: -Acute on chronic hypercapnic respiratory failure secondary to COPD exacerbation patient will be started on systemic steroids patient does have diabetes mellitus because of which I'll cut down the steroids 40 IV twice a day patient probably can be switched to oral steroids tomorrow patient will be continued on inhalational treatments. Quit smoking years ago. -Type 2 diabetes mellitus uncontrolled blood sugars elevated blood sugars: Patient was started on sliding scale metformin will be held temporarily -Hyperkalemia secondary to hemolysis -Hyperlipidemia -Coronary artery disease -Benign prostatic hypertrophy
[2019-05-07] MEDS ORDERED: INSULIN ASPART (NovoLOG) 100 UNIT/ML VIAL SQ SCH (17:30)
[2019-05-07] MEDS: INSULIN ASPART (NovoLOG) 100 UNIT/ML VIAL SQ SCH ×2 (17:37→21:15)
[2019-05-07] MEDS ORDERED: methylPREDNISolone SOD SUCCI 125 MG/2 ML VIAL IV SCH (18:00)
[2019-05-07] MEDS ORDERED: FUROSEMIDE 10 MG/ML 4 ML VIAL IV STA (18:08)
--- NOTE | 2019-05-07 18:08 | P.CNPUL ---
History of Present Illness Consult date: 05/07/19 Requesting physician: Destiny Leon Reason for consult: dyspnea, COPD Chief complaint: Shortness of breath, cough, congestion History of present illness: This a very pleasant 73-year-old gentleman who follows with Dr. Peres as his primary care provider. He has a history of coronary artery disease, hyperlipidemia, osteoarthritis. He also has a history of COPD chronic hypoxic respiratory failure on home oxygen, prednisone dependent at 5 mg daily, he carries an FEV1 of 46% of predicted. He is a chronic smoker and he has been maintained on Symbicort 2 puffs twice a day and Proventil rescue inhaler on an as-needed basis. The patient has been seeing Dr. Robison on a regular basis and was actually seen there yesterday for increasing shortness of breath, cough or congestion. He was given Depo-Medrol a prednisone taper however today he became more short of breath and presented here to the emergency room. He is seen in consultation on the regular medical floor. He is awake and alert in no acute distress. He is dyspneic with minimal exertion. Dry nonproductive cough. He is x-ray shows chronic changes along with a new mild fluid volume overload. He is maintaining O2 saturations in the 90s on 3 L/m per nasal cannula. He's been afebrile. Hemodynamically stable. Review of Systems REVIEW OF SYSTEMS: CONSTITUTIONAL: Denies any recent significant weight loss or weight gain. EYES: Denies change in vision. EARS, NOSE, MOUTH, THROAT: Denies headaches, denies sore throat. CARDIOVASCULAR: Denies chest pain, palpitations or syncopal episodes. RESPIRATORY: Positive for shortness of breath, cough, congestion no hemoptysis. GASTROINTESTINAL: Denies change in appetite, denies abdominal pain GENITOURINARY: Denies hematuria, denies infections. MUSKULOSKELETAL: Denies pain, denies swelling. INTEGUMENTARY: Denies rash, denies eczema. NEUROLOGICAL: Denies recent memory loss, no recent seizure activity. PSYCHIATRIC: Denies anxiety, denies depression. HEMATOLOGIC/LYMPHATIC: Denies anemia, denies enlarged lymph nodes. Past Medical History Past Medical History: Chest Pain / Angina, COPD, Diabetes Mellitus, Hyper lipidemia, Myocardial Infarction ([place]), Osteoarthritis (OA), Pneumonia, Prostate Disorder, Supraventricular Tachycardia (SVT) Additional Past Medical History / Comment(s): Chronic hypoxic respiratory failure with home oxygen pt mostly just wears at night, past acute hypoxic r espiratory failure requiring bipap, newly diagnosed NIDDM type II, BPH, UTI Last Myocardial Infarction Date:: 2008 History of Any Multi-Drug Resistant Organisms: None Reported Past Surgical History: Back Surgery, Heart Catheterization, Hernia Repair, Joint Replacement Additional Past Surgical History / Comment(s): microlaryngoscopy w/ lt vocal cord bx-neg, bronch-lung bx-neg, lt inguinal hernia, low back surgery, bilateral total hip arthroplasties, bilateral cataracts removed. Past Anesthesia/Blood Transfusion Reactions: No Reported Reaction Smoking Status: Current every day smoker - Past Family History Mother Family Medical History: COPD, Diabetes Mellitus Father Family Medical History: COPD, Diabetes Mellitus Brother(s) Family Medical History: Cancer Additional Family Medical History / Comment(s): leukemia Medications and Allergies Home Medications Medication Instructions Recorded Confirmed Type Aspirin 81 mg PO DAILY 07/17/16 05/07/19 History Atorvastatin [Lipitor] 20 mg PO DAILY 07/17/16 05/07/19 History Budesonide-Formot 160-4.5 Mcg 2 puff INHALATION RT-BID 07/17/16 05/07/19 History [Symbicort 160-4.5 Mcg Inhaler] Metoprolol Tartrate [Lopressor] 25 mg PO DAILY 07/23/18 05/07/19 History Ibuprofen [Motrin] 800 mg PO TID PRN 03/24/19 05/07/19 History Ipratropium-Albuterol Nebulize 3 ml INHALATION RT-QID 05/07/19 05/07/19 History [Duoneb 0.5 mg-3 mg/3 ml Soln] Sertraline HCl [Zoloft] 25 mg PO HS 05/07/19 05/07/19 History Sulfamethox-Tmp 800-160Mg [Bactrim 1 tab PO Q12HR 05/07/19 05/07/19 History DS 800-160 mg] Tamsulosin HCl [Flomax] 0.4 mg PO DAILY 05/07/19 05/07/19 History metFORMIN HCL 500 mg PO BID 05/07/19 05/07/19 History predniSONE See Taper PO DAILY 05/07/19 05/07/19 History Allergies Allergy/AdvReac Type Severity Reaction Status Date / Time Penicillins Allergy Unknown Verified 03/24/19 07:04 Physical Exam Vitals: Vital Signs Temp Pulse Pulse Resp BP BP Pulse Ox 05/07/19 16:33 97.7 F 77 18 132/70 97 05/07/19 15:51 20 05/07/19 15:30 147/85 05/07/19 15:00 75 20 150/70 97 05/07/19 14:30 143/71 97 05/07/19 14:00 79 20 147/85 95 05/07/19 13:58 84 05/07/19 13:50 145/71 95 05/07/19 13:49 80 05/07/19 13:30 138/77 97 05/07/19 13:29 97 05/07/19 12:50 20 05/07/19 12:47 97.8 F 80 18 167/75 96 Intake and Output 05/07/19 05/07/19 05/07/19 06:59 14:59 22:59 Other: Weight 82.554 kg 82.554 kg GENERAL EXAM: Alert, pleasant 73-year-old gentleman, on 3 L nasal cannula, comfortable in no apparent distress. HEAD: Normocephalic. EYES: Normal reaction of pupils, equal size. NOSE: Clear with pink turbinates. THROAT: No erythema or exudates. NECK: No masses, no JVD. CHEST: No chest wall deformity. LUNGS: Equal air entry with bilateral end expiratory wheeze, diminished. CVS: S1 and S2 normal with no audible murmur, regular rhythm. ABDOMEN: No hepatosplenomegaly, normal bowel sounds, no guarding or rigidity. SPINE: No scoliosis or deformity SKIN: No rashes CENTRAL NERVOUS SYSTEM: No focal deficits, tone is normal in all 4 extremities. EXTREMITIES: There is no peripheral edema. No clubbing, no cyanosis. Peripheral pulses are intact. Results - Laboratory Findings CBC and BMP: 05/07/19 13:25 05/07/19 13:25 PT/INR, D-dimer PT 10.0 sec (9.0-12.0) 05/07/19 13:25 INR 0.9 (<1.2) 05/07/19 13:25 Abnormal lab findings: Abnormal Labs 05/07/19 05/07/19 05/07/19 13:25 13:25 16:59 Lymphocytes # 0.6 L Potassium 5.4 H Glucose 130 H POC Glucose (mg/dL) 152 H Assessment and Plan Assessment: #1 Acute exacerbation of chronic obstructive pulmonary disease. FEV1 value of 46% of predicted. #2 Acute on chronic hypoxic respiratory failure utilizing oxygen at home mostly at nighttime, currently on 3 L of oxygen by nasal cannula, attributed to COPD exacerbation #3 Chronic and ongoing tobacco dependence. #4 Osteoarthritis. #5 History of SVT Along with history of coronary artery disease with previous myocardial infarction #6 Hyperlipidemia. Plan The patient was seen and evaluated by Dr. Clayton. Chest x-ray and labs reviewed. We'll continue with the current treatment plan including DuoNeb inhalations, Symbicort, IV Solu-Medrol and will continue to dose of Lasix 40 mg IVP 1. Repeat a chest x-ray in the a.m. We will continue to follow make further recommendations based on his clinical status. I, the cosigning physician, performed a history & physical examination of the patient. Lungs sounds with bilateral end expiratory wheeze, diminished. Maintaining good O2 saturations in the 90s on 3 L/m per nasal cannula. I discussed the assessment and plan of care with my nurse practitioner, Chayo Lynch. I attest to the consultation as dictated by her. Time with Patient: Greater than 30
[2019-05-07] MEDS: NICOTINE 21MG/24HR PATCH TRANSDERM SCH (18:29)
[2019-05-07] MEDS: SYMBICORT 160-4.5 MCG INHALER INHALATION SCH (19:33)
[2019-05-07 21:08] LABS: Glucose,Whole Blood 211 mg/dL (75-99)
[2019-05-07] MEDS: FAMOTIDINE 20 MG TAB PO SCH (21:15)
[2019-05-07] MEDS: CEFDINIR 300 MG CAP PO SCH (21:15)
[2019-05-07] MEDS: methylPREDNISolone SOD SUCCI 40 MG/ML 1 ML VIAL IV SCH (21:16)
[2019-05-07] MEDS: SERTRALINE 25 MG TAB PO SCH (21:16)
[2019-05-07] MEDS: IPRATROPIUM-ALBUTEROL 3 ML NEB INHALATION PRN (23:53)
[2019-05-08] MEDS: HEPARIN SODIUM,PORCINE 5,000 UNIT/ML 1 ML VIAL SQ SCH ×3 (00:09→15:25)
[2019-05-08] MEDS: IPRATROPIUM-ALBUTEROL 3 ML NEB INHALATION PRN (04:37)
[2019-05-08 07:28] LABS: Glucose,Whole Blood 216 mg/dL (75-99)
[2019-05-08 07:56] LABS: Calcium 9.2 mg/dL (8.4-10.2); Potassium 4.7 mmol/L (3.5-5.1)
[2019-05-08] MEDS: methylPREDNISolone SOD SUCCI 40 MG/ML 1 ML VIAL IV SCH ×2 (08:15→21:22)
[2019-05-08] MEDS: ATORVASTATIN 20 MG TAB PO SCH (08:15)
[2019-05-08] MEDS: ASPIRIN 81 MG PO SCH (08:15)
[2019-05-08] MEDS: NICOTINE 21MG/24HR PATCH TRANSDERM SCH (08:15)
[2019-05-08] MEDS: TAMSULOSIN 0.4 MG CAP.ER.24H PO SCH (08:15)
[2019-05-08] MEDS: FAMOTIDINE 20 MG TAB PO SCH ×2 (08:15→21:21)
[2019-05-08] MEDS: INSULIN ASPART (NovoLOG) 100 UNIT/ML VIAL SQ SCH ×4 (08:16→21:29)
[2019-05-08] MEDS: SYMBICORT 160-4.5 MCG INHALER INHALATION SCH ×2 (08:52→20:29)
[2019-05-08] MEDS: IPRATROPIUM-ALBUTEROL 3 ML NEB INHALATION SCH ×4 (08:52→20:29)
[2019-05-08] MEDS: CEFDINIR 300 MG CAP PO SCH ×2 (08:56→21:21)
--- NOTE | 2019-05-08 10:29 | P.PN ---
Subjective Progress Note Date: 05/08/19 Principal diagnosis: Acute exacerbation of chronic obstructive pulmonary disease This a very pleasant 73-year-old gentleman who follows with Dr. Peres as his primary care provider. He has a history of coronary artery disease, hyperlipidemia, osteoarthritis. He also has a history of COPD chronic hypoxic respiratory failure on home oxygen, prednisone dependent at 5 mg daily, he carries an FEV1 of 46% of predicted. He is a chronic smoker and he has been maintained on Symbicort 2 puffs twice a day and Proventil rescue inhaler on an as-needed basis. The patient has been seeing Dr. Robison on a regular basis and was actually seen there yesterday for increasing shortness of breath, cough or congestion. He was given Depo-Medrol a prednisone taper however today he became more short of breath and presented here to the emergency room. He is seen in consultation on the regular medical floor. He is awake and alert in no acute distress. He is dyspneic with minimal exertion. Dry nonproductive cough. He is x-ray shows chronic changes along with a new mild fluid volume overload. He is maintaining O2 saturations in the 90s on 3 L/m per nasal cannula. He's been afebrile. Hemodynamically stable. The patient is seen today 05/08/2019 in follow-up on the regular medical floor. He is currently awake and alert in no acute distress. He is breathing a bit easier today compared to yesterday. Not back to his baseline. Still dyspneic on conversation and minimal exertion. His maintaining good O2 saturations in the 90s on 3 L/m per nasal cannula. Sodium 138.. Potassium 4.7. Creatinine 1.18. He is continued on IV Solu-Medrol, bronchodilators, NicoDerm patch has been ordered. Objective - Vital Signs Vital signs: Vital Signs Temp 97.9 F 05/08/19 05:30 Pulse 94 05/08/19 09:07 Resp 16 05/08/19 05:30 BP 123/58 05/08/19 05:30 Pulse Ox 97 05/08/19 05:30 Intake & Output 05/07/19 05/08/19 05/08/19 18:59 06:59 18:59 Intake Total 240 480 Output Total 1500 Balance 240 -1020 Weight 82.554 kg Intake: Oral 240 480 Output: Urine 1500 Other: # Bowel Movements 0 - Exam GENERAL EXAM: Alert, pleasant 73-year-old gentleman, on 3 L nasal cannula, dyspneic on exertion, comfortable at rest. HEAD: Normocephalic. EYES: Normal reaction of pupils, equal size. NOSE: Clear with pink turbinates. THROAT: No erythema or exudates. NECK: No masses, no JVD. CHEST: No chest wall deformity. LUNGS: Equal air entry with bilateral end expiratory wheeze, diminished. CVS: S1 and S2 normal with no audible murmur, regular rhythm. ABDOMEN: No hepatosplenomegaly, normal bowel sounds, no guarding or rigidity. SPINE: No scoliosis or deformity SKIN: No rashes CENTRAL NERVOUS SYSTEM: Alert, oriented 3. No focal deficits, tone is normal in all 4 extremities. EXTREMITIES: There is no peripheral edema. No clubbing, no cyanosis. Peripheral pulses are intact. - Labs CBC & Chem 7: 05/07/19 13:25 05/08/19 07:13 Labs: Abnormal Lab Results - Last 24 Hours (Table) 05/07/19 05/07/19 05/07/19 Range/Units 13:25 13:25 16:59 Lymphocytes # 0.6 L (1.0-4.8) k/uL Potassium 5.4 H (3.5-5.1) mmol/L BUN (9-20) mg/dL Glucose 130 H (74-99) mg/dL POC Glucose (mg/dL) 152 H (75-99) mg/dL 05/07/19 05/08/19 05/08/19 Range/Units 21:03 07:13 07:16 Lymphocytes # (1.0-4.8) k/uL Potassium (3.5-5.1) mmol/L BUN 24 H (9-20) mg/dL Glucose 185 H (74-99) mg/dL POC Glucose (mg/dL) 211 H 216 H (75-99) mg/dL Assessment and Plan Assessment: #1 Acute exacerbation of chronic obstructive pulmonary disease. FEV1 value of 46% of predicted. #2 Acute on chronic hypoxic respiratory failure utilizing oxygen at home mostly at nighttime, currently on 3 L of oxygen by nasal cannula, attributed to COPD exacerbation #3 Chronic and ongoing tobacco dependence. #4 Osteoarthritis. #5 History of SVT Along with history of coronary artery disease with previous myocardial infarction #6 Hyperlipidemia. Plan The patient was seen and evaluated by Dr. Clayton. The patient is improved but not quite back to his baseline. We'll continue with the current treatment plan including DuoNeb inhalations, Symbicort, IV Solu-Medrol. E diurese well for the Lasix yesterday. Repeat a chest x-ray in the a.m. We will continue to follow and make further recommendations based on his clinical status. I, the cosigning physician, performed a history & physical examination of the patient. Lungs sounds with bilateral end expiratory wheeze, diminished. Maintaining good O2 saturations in the 90s on 3 L/m per nasal cannula. I discussed the assessment and plan of care with my nurse practitioner, Chayo Lynch. I attest to the consultation as dictated by her.
[2019-05-08 11:36] LABS: Glucose,Whole Blood 178 mg/dL (75-99)
--- NOTE | 2019-05-08 16:13 | P.PN ---
Subjective Progress Note Date: 05/08/19 Principal diagnosis: Acute on chronic hypercapnic respiratory failure secondary to COPD exacerbation Mr. Golden is a 73-year-old male with a past medical history of COPD, diabetes, hypertension, osteoarthritis, prostate disorder, supraventricular tachycardia coming in with a chief complaint of difficulty in breathing. He is currently being treated for COPD exacerbation. On 05/08/2019 patient is comfortably sitting in bed. He complains of mild difficulty in breathing. Denies having any chest pain or palpitations. No abdominal pain nausea vomiting. He complains of mild lower extremity edema. No orthopnea PND. He also mentions about having BPH and the Flomax helps him with his urinary stream. On review of systems: Constitutional: Denied any fatigue denied any fever. Cardio vascular: denied any chest pain, palpitations Gastrointestinal : denied any nausea vomiting Pulmonary: As mentioned above Neurologic denied any weakness of his extremities Patient's medications and labs have been reviewed. Objective - Vital Signs Vital signs: Vital Signs Temp 98.0 F 05/08/19 13:44 Pulse 92 05/08/19 13:44 Resp 18 05/08/19 13:44 BP 151/65 05/08/19 13:44 Pulse Ox 92 L 05/08/19 13:44 Intake & Output 05/07/19 05/08/19 05/08/19 18:59 06:59 18:59 Intake Total 240 480 300 Output Total 1500 Balance 240 -1020 300 Weight 82.554 kg Intake: Oral 240 480 300 Output: Urine 1500 Other: # Voids 1 # Bowel Movements 0 - Exam PHYSICAL EXAMINATION: GENERAL: The patient is alert and oriented x3, not in any acute distress. Well developed, well nourished. HEENT: Pupils are round and equally reacting to light. EOMI. No scleral icterus. No conjunctival pallor. Normocephalic, atraumatic. No pharyngeal erythema. No thyromegaly. CARDIOVASCULAR: S1 and S2 present. No murmurs, rubs, or gallops. PULMONARY: Decreased air entry bilaterally, ABDOMEN: Soft, nontender, nondistended, normoactive bowel sounds. No palpable organomegaly. MUSCULOSKELETAL: No joint swelling or deformity. EXTREMITIES: No cyanosis, clubbing, mild pedal edema. NEUROLOGICAL: Gross neurological examination did not reveal any focal deficits. SKIN: No rashes. - Labs CBC & Chem 7: 05/07/19 13:25 05/08/19 07:13 Labs: Abnormal Lab Results - Last 24 Hours (Table) 05/07/19 05/07/19 05/08/19 Range/Units 16:59 21:03 07:13 BUN 24 H (9-20) mg/dL Glucose 185 H (74-99) mg/dL POC Glucose (mg/dL) 152 H 211 H (75-99) mg/dL 05/08/19 05/08/19 Range/Units 07:16 11:33 BUN (9-20) mg/dL Glucose (74-99) mg/dL POC Glucose (mg/dL) 216 H 178 H (75-99) mg/dL Assessment and Plan Assessment: ASSESSMENT Acute on chronic hypoxic respiratory failure Acute COPD exacerbation History of coronary artery disease BPH Hyperlipidemia Hypertension Multiple joint osteoarthritis History of supraventricular tachycardia Type 2 diabetes mellitus Bilateral total hip arthroplasty PLAN: Patient will be continued on IV Solu-Medrol and breathing treatments. Continue with Lasix for diuresis. Continue with the rest of the medication regimen. Further admonitions to follow depending on the progress of the patient.
[2019-05-08 16:29] LABS: Glucose,Whole Blood 329 mg/dL (75-99)
[2019-05-08 20:15] LABS: Glucose,Whole Blood 294 mg/dL (75-99)
[2019-05-08] MEDS: SERTRALINE 25 MG TAB PO SCH (21:22)
[2019-05-09] MEDS: IPRATROPIUM-ALBUTEROL 3 ML NEB INHALATION PRN ×2 (00:56→04:24)
[2019-05-09] MEDS: HEPARIN SODIUM,PORCINE 5,000 UNIT/ML 1 ML VIAL SQ SCH ×3 (01:10→16:18)
[2019-05-09 07:10] LABS: Glucose,Whole Blood 211 mg/dL (75-99)
[2019-05-09] MEDS: CEFDINIR 300 MG CAP PO SCH ×2 (08:19→20:21)
[2019-05-09] MEDS: NICOTINE 21MG/24HR PATCH TRANSDERM SCH (08:19)
[2019-05-09] MEDS: ASPIRIN 81 MG PO SCH (08:19)
[2019-05-09] MEDS: TAMSULOSIN 0.4 MG CAP.ER.24H PO SCH (08:19)
[2019-05-09] MEDS: FAMOTIDINE 20 MG TAB PO SCH ×2 (08:20→20:20)
[2019-05-09] MEDS: ATORVASTATIN 20 MG TAB PO SCH (08:20)
[2019-05-09] MEDS: INSULIN ASPART (NovoLOG) 100 UNIT/ML VIAL SQ SCH ×4 (08:20→20:19)
[2019-05-09] MEDS: methylPREDNISolone SOD SUCCI 40 MG/ML 1 ML VIAL IV SCH ×2 (08:20→20:20)
[2019-05-09] MEDS: IPRATROPIUM-ALBUTEROL 3 ML NEB INHALATION SCH ×4 (09:54→20:05)
[2019-05-09] MEDS: SYMBICORT 160-4.5 MCG INHALER INHALATION SCH ×2 (10:46→20:05)
[2019-05-09 11:59] LABS: Glucose,Whole Blood 224 mg/dL (75-99)
--- NOTE | 2019-05-09 14:10 | P.PN ---
Subjective Progress Note Date: 05/09/19 Acute exacerbation of chronic obstructive pulmonary disease This a very pleasant 73-year-old gentleman who follows with Dr. Peres as his primary care provider. He has a history of coronary artery disease, hyperlipidemia, osteoarthritis. He also has a history of COPD chronic hypoxic respiratory failure on home oxygen, prednisone dependent at 5 mg daily, he carries an FEV1 of 46% of predicted. He is a chronic smoker and he has been maintained on Symbicort 2 puffs twice a day and Proventil rescue inhaler on an as-needed basis. The patient has been seeing Dr. Robison on a regular basis and was actually seen there yesterday for increasing shortness of breath, cough or congestion. He was given Depo-Medrol a prednisone taper however today he became more short of breath and presented here to the emergency room. He is seen in consultation on the regular medical floor. He is awake and alert in no acute distress. He is dyspneic with minimal exertion. Dry nonproductive cough. He is x-ray shows chronic changes along with a new mild fluid volume overload. He is maintaining O2 saturations in the 90s on 3 L/m per nasal cannula. He's been afebrile. Hemodynamically stable. The patient is seen today 05/08/2019 in follow-up on the regular medical floor. He is currently awake and alert in no acute distress. He is breathing a bit easier today compared to yesterday. Not back to his baseline. Still dyspneic on conversation and minimal exertion. His maintaining good O2 saturations in th e 90s on 3 L/m per nasal cannula. Sodium 138.. Potassium 4.7. Creatinine 1.18. He is continued on IV Solu-Medrol, bronchodilators, NicoDerm patch has been ordered. On 05/09/2019 the patient is still showing wall and slow recovery. Less short of breath. Still on IV Solu-Medrol. He is receiving 40 mg every 12 hours. No other new complaints otherwise for now. He may benefit from another day of treatment and possible discharge within the next 24 hours. No other new complaints. Blood sugar slightly elevated and the most recent blood sugars in the 250 range. Objective - Vital Signs Vital signs: Vital Signs Temp 98.3 F 05/09/19 05:00 Pulse 80 05/09/19 11:00 Resp 20 05/09/19 05:00 BP 158/78 05/09/19 05:00 Pulse Ox 98 05/09/19 05:00 Intake & Output 05/08/19 05/09/19 05/09/19 18:59 06:59 18:59 Intake Total 700 650 Balance 700 650 Intake: Oral 700 650 Other: # Voids 1 2 - Exam GENERAL EXAM: Alert, pleasant 73-year-old gentleman, on 3 L nasal cannula, dyspneic on exertion, comfortable at rest. HEAD: Normocephalic. EYES: Normal reaction of pupils, equal size. NOSE: Clear with pink turbinates. THROAT: No erythema or exudates. NECK: No masses, no JVD. CHEST: No chest wall deformity. LUNGS: Equal air entry with bilateral end expiratory wheeze, diminished. CVS: S1 and S2 normal with no audible murmur, regular rhythm. ABDOMEN: No hepatosplenomegaly, normal bowel sounds, no guarding or rigidity. SPINE: No scoliosis or deformity SKIN: No rashes CENTRAL NERVOUS SYSTEM: Alert, oriented 3. No focal deficits, tone is normal in all 4 extremities. EXTREMITIES: There is no peripheral edema. No clubbing, no cyanosis. Periphe ral pulses are intact. - Labs CBC & Chem 7: 05/07/19 13:25 05/08/19 07:13 Labs: Abnormal Lab Results - Last 24 Hours (Table) 05/08/19 05/08/19 05/09/19 Range/Units 16:24 20:08 06:53 POC Glucose (mg/dL) 329 H 294 H 211 H (75-99) mg/dL 05/09/19 Range/Units 11:57 POC Glucose (mg/dL) 224 H (75-99) mg/dL Microbiology - Last 24 Hours (Table) 05/07/19 15:25 Blood Culture - Preliminary Blood No Growth after 24 hours Assessment and Plan Plan: #1 Acute exacerbation of chronic obstructive pulmonary disease. FEV1 value of 46% of predicted. #2 Acute on chronic hypoxic respiratory failure utilizing oxygen at home mostly at nighttime, currently on 3 L of oxygen by nasal cannula, attributed to COPD exacerbation #3 Chronic and ongoing tobacco dependence. #4 Osteoarthritis. #5 History of SVT Along with history of coronary artery disease with previous myocardial infarction #6 Hyperlipidemia. Plan IV Solu-Medrol for another 24 hours Monitor blood sugars Prednisone burst taper as of tomorrow Possible discharge as of tomorrow Smoking cessation counseling Symbicort outpatient Recommend addition of Spiriva in conjunction with Symbicort on outpatient basis.
--- NOTE | 2019-05-09 14:57 | P.PN ---
Subjective Progress Note Date: 05/09/19 Principal diagnosis: Acute on chronic hypercapnic respiratory failure secondary to COPD exacerbation Mr. Golden is a 73-year-old male with a past medical history of COPD, diabetes, h ypertension, osteoarthritis, prostate disorder, supraventricular tachycardia coming in with a chief complaint of difficulty in breathing. He is currently being treated for COPD exacerbation. On 05/08/2019 patient is comfortably sitting in bed. He complains of mild difficulty in breathing. Denies having any chest pain or palpitations. No abdominal pain nausea vomiting. He complains of mild lower extremity edema. No orthopnea PND. He also mentions about having BPH and the Flomax helps him with his urinary stream. On 05/09/2019 - patient is sitting up in the bed appears to be no acute di stress. He is still complains of mild difficulty in breathing. He, complains about hoarseness of his voice. His daughter is at the bedside, she has concerns about him having pertussis as she was recently diagnosed with pertussis. Patient also complains of some bloating sensation in his belly. He had a bowel movement yesterday. Denies having any nausea vomiting or abdominal pain. No dysuria or hematuria. Patient's labs and vitals have been reviewed. Medications reviewed. Active Medications Albuterol/Ipratropium (Duoneb 0.5 Mg-3 Mg/3 Ml Soln) 3 ml INHALATION RT-QID [facility] Last Admin: 05/09/19 10:46 Dose: 3 ml Documented by: Albuterol/Ipratropium (Duoneb 0.5 Mg-3 Mg/3 Ml Soln) 3 ml INHALATION RT-Q4H PRN PRN Reason: Shortness Of Breath Or Wheezing Last Admin: 05/09/19 04:24 Dose: 3 ml Documented by: Aspirin (Aspirin) 81 mg PO DAILY [facility] Last Admin: 05/09/19 08:19 Dose: 81 mg Documented by: Atorvastatin Calcium (Lipitor) 20 mg PO DAILY [facility] Last Admin: 05/09/19 08:20 Dose: 20 mg Documented by: Budesonide/Formoterol Fumarate (Symbicort 160-4.5 Mcg Inhaler) 2 puff INHALATION RT-BID [facility] Last Admin: 05/09/19 10:46 Dose: 2 puff Documented by: Cefdinir (Omnicef) 300 mg PO BID [facility] Stop: 05/17/19 21:01 Last Admin: 05/09/19 08:19 Dose: 300 mg Documented by: Famotidine (Pepcid) 20 mg PO BID [facility] Last Admin: 05/09/19 08:20 Dose: 20 mg Documented by: Heparin Sodium (Porcine) (Heparin) 5,000 unit SQ Q8HR [facility] Last Admin: 05/09/19 07:56 Dose: Not Given Documented by: Ibuprofen (Motrin) 800 mg PO TID PRN PRN Reason: Pain Insulin Aspart (Novolog) 0 unit SQ ACHS [facility]; Protocol Last Admin: 05/09/19 12:30 Dose: 3 unit Documented by: Methylprednisolone Sodium Succinate (Solu-Medrol) 40 mg IV BID [facility] Last Admin: 05/09/19 08:20 Dose: 40 mg Documented by: Nicotine (Habitrol 21mg/24hr Patch) 1 patch TRANSDERM DAILY [facility] Last Admin: 05/09/19 08:19 Dose: 1 patch Documented by: Sertraline HCl (Zoloft) 25 mg PO HS [facility] Last Admin: 05/08/19 21:22 Dose: 25 mg Documented by: Tamsulosin HCl (Flomax) 0.4 mg PO DAILY [facility] Last Admin: 05/09/19 08:19 Dose: 0.4 mg Documented by: Objective - Vital Signs Vital signs: Vital Signs Temp 98.3 F 05/09/19 05:00 Pulse 80 05/09/19 11:00 Resp 20 05/09/19 05:00 BP 158/78 05/09/19 05:00 Pulse Ox 98 05/09/19 05:00 Intake & Output 05/08/19 05/09/19 05/09/19 18:59 06:59 18:59 Intake Total 700 650 320 Output Total 700 Balance 700 650 -380 Intake: Oral 700 650 320 Output: Urine 700 Other: # Voids 1 2 - Exam PHYSICAL EXAMINATION: GENERAL: The patient is alert and oriented x3, not in any acute distress. Well developed, well nourished. HEENT: No pallor. No icterus. CARDIOVASCULAR: S1 and S2 present. No murmurs, rubs, or gallops. PULMONARY: Decreased air entry bilaterally, no wheezes. ABDOMEN: Soft, nontender, nondistended, normoactive bowel sounds. No palpable organomegaly. MUSCULOSKELETAL: No joint swelling or deformity. EXTREMITIES: No cyanosis, clubbing, mild pedal edema. NEUROLOGICAL: Gross neurological examination did not reveal any focal deficits. - Labs CBC & Chem 7: 05/07/19 13:25 05/08/19 07:13 Labs: Abnormal Lab Results - Last 24 Hours (Table) 05/08/19 05/08/19 05/09/19 Range/Units 16:24 20:08 06:53 POC Glucose (mg/dL) 329 H 294 H 211 H (75-99) mg/dL 05/09/19 Range/Units 11:57 POC Glucose (mg/dL) 224 H (75-99) mg/dL Microbiology - Last 24 Hours (Table) 05/07/19 15:25 Blood Culture - Preliminary Blood No Growth after 24 hours Assessment and Plan Assessment: ASSESSMENT Acute on chronic hypoxic respiratory failure Acute COPD exacerbation History of coronary artery disease BPH Hyperlipidemia Hypertension Multiple joint osteoarthritis History of supraventricular tachycardia Type 2 diabetes mellitus Bilateral total hip arthroplasty PLAN: Patient will be continued on IV Solu-Medrol, Omnicef and breathing treatments. Continue with Lasix for diuresis. Continue with the rest of the medication regimen. PCR for pertussis will be sent with a nasal swab. Further recommendations to follow depending on the progress of the patient. The treatment plan was discussed with the patient and his daughter at bedside in detail today.
--- NOTE | 2019-05-09 16:27 | XR ---
EXAMINATION TYPE: XR chest 2V DATE OF EXAM: 05/09/2019 COMPARISON: 05/07/2019 HISTORY: Short of breath TECHNIQUE: FINDINGS: There is interstitial bilateral pulmonary infiltrates throughout the lungs. There are emphy sematous changes at the lung apices. There is bullous disease at the left lung apex. There is no pleu ral effusion. There is no heart failure. Heart size is normal. There are no hilar masses. There is no sign of mediastinal adenopathy. There is mild pleural thickening along the right lateral chest wall. IMPRESSION: Interstitial pulmonary infiltrates increased slightly compared to last exam and consisten t with acute and chronic interstitial pneumonia.
[2019-05-09 17:32] LABS: Glucose,Whole Blood 286 mg/dL (75-99)
[2019-05-09 20:05] LABS: Glucose,Whole Blood 266 mg/dL (75-99)
[2019-05-09] MEDS: SERTRALINE 25 MG TAB PO SCH (20:21)
[2019-05-10] MEDS: IPRATROPIUM-ALBUTEROL 3 ML NEB INHALATION PRN (01:12)
[2019-05-10] MEDS: HEPARIN SODIUM,PORCINE 5,000 UNIT/ML 1 ML VIAL SQ SCH ×4 (01:41→23:35)
[2019-05-10] MEDS: IPRATROPIUM-ALBUTEROL 3 ML NEB INHALATION SCH ×4 (07:05→21:11)
[2019-05-10] MEDS: SYMBICORT 160-4.5 MCG INHALER INHALATION SCH ×2 (07:05→21:17)
[2019-05-10 07:16] LABS: Glucose,Whole Blood 220 mg/dL (75-99)
[2019-05-10] MEDS: INSULIN ASPART (NovoLOG) 100 UNIT/ML VIAL SQ SCH ×4 (08:52→20:35)
[2019-05-10] MEDS: NICOTINE 21MG/24HR PATCH TRANSDERM SCH (08:53)
[2019-05-10] MEDS: methylPREDNISolone SOD SUCCI 40 MG/ML 1 ML VIAL IV SCH ×2 (08:53→20:34)
[2019-05-10] MEDS: ASPIRIN 81 MG PO SCH (08:53)
[2019-05-10] MEDS: TAMSULOSIN 0.4 MG CAP.ER.24H PO SCH (08:53)
[2019-05-10] MEDS: ATORVASTATIN 20 MG TAB PO SCH (08:53)
[2019-05-10] MEDS: FAMOTIDINE 20 MG TAB PO SCH ×2 (08:53→20:34)
[2019-05-10] MEDS: CEFDINIR 300 MG CAP PO SCH ×2 (08:54→20:35)
--- NOTE | 2019-05-10 11:40 | P.PN ---
Subjective Progress Note Date: 05/10/19 Principal diagnosis: Acute exacerbation of chronic obstructive pulmonary disease This a very pleasant 73-year-old gentleman who follows with Dr. Peres as his primary care provider. He has a history of coronary artery disease, hyperlipidemia, osteoarthritis. He also has a history of COPD chronic hypoxic respiratory failure on home oxygen, prednisone dependent at 5 mg daily, he carries an FEV1 of 46% of predicted. He is a chronic smoker and he has been maintained on Symbicort 2 puffs twice a day and Proventil rescue inhaler on an as-needed basis. The patient has been seeing Dr. Robison on a regular basis and was actually seen there yesterday for increasing shortness of breath, cough or congestion. He was given Depo-Medrol a prednisone taper however today he became more short of breath and presented here to the emergency room. He is seen in consultation on the regular medical floor. He is awake and alert in no acute distress. He is dyspneic with minimal exertion. Dry nonproductive cough. He is x-ray shows chronic changes along with a new mild fluid volume overload. He is maintaining O2 saturations in the 90s on 3 L/m per nasal cannula. He's been afebrile. Hemodynamically stable. The patient is seen today 05/08/2019 in follow-up on the regular medical floor. He is currently awake and alert in no acute distress. He is breathing a bit easier today compared to yesterday. Not back to his baseline. Still dyspneic on conversation and minimal exertion. His maintaining good O2 saturations in the 90s on 3 L/m per nasal cannula. Sodium 138.. Potassium 4.7. Creatinine 1.18. He is continued on IV Solu-Medrol, bronchodilators, NicoDerm patch has been ordered. On 05/09/2019 the patient is still showing wall and slow recovery. Less short of breath. Still on IV Solu-Medrol. He is receiving 40 mg every 12 hours. No other new complaints otherwise for now. He may benefit from another day of treatment and possible discharge within the next 24 hours. No other new complaints. Blood sugar slightly elevated and the most recent blood sugars in the 250 range. The patient is seen today 05/10/2019 in follow-up on the regular medical floor. He is sitting up at the bedside. Awake and alert in no acute distress. Breathing easier today as compared to yesterday. Today's with an occasional cough. Maintaining O2 saturations in the mid 90s on 3 L/m per nasal cannula. Remains afebrile. Blood and sputum cultures reveal no growth. Pertussis screen pending. Blood glucose 220. Continued on DuoNeb inhalations, Symbicort, IV Solu-Medrol. NicoDerm patch in place. Objective - Vital Signs Vital signs: Vital Signs Temp 98.0 F 05/10/19 05:15 Pulse 92 05/10/19 11:16 Resp 18 05/10/19 05:15 BP 165/76 05/10/19 05:15 Pulse Ox 97 05/10/19 07:07 Intake & Output 05/09/19 05/10/19 05/10/19 18:59 06:59 18:59 Intake Total 320 Output Total 700 925 Balance -380 -925 Intake: Oral 320 Output: Urine 700 925 Other: # Voids 1 - Exam GENERAL EXAM: Alert, pleasant 73-year-old gentleman, on 3 L nasal cannula, comfortable at rest. HEAD: Normocephalic. EYES: Normal reaction of pupils, equal size. NOSE: Clear with pink turbinates. THROAT: No erythema or exudates. NECK: No masses, no JVD. CHEST: No chest wall deformity. LUNGS: Equal air entry with bilateral end expiratory wheeze, diminished. CVS: S1 and S2 normal with no audible murmur, regular rhythm. ABDOMEN: No hepatosplenomegaly, normal bowel sounds, no guarding or rigidity. SPINE: No scoliosis or deformity SKIN: No rashes CENTRAL NERVOUS SYSTEM: Alert, oriented 3. No focal deficits, tone is normal in all 4 extremities. EXTREMITIES: There is no peripheral edema. No clubbing, no cyanosis. Peripheral pulses are intact. - Labs CBC & Chem 7: 05/07/19 13:25 05/08/19 07:13 Labs: Abnormal Lab Results - Last 24 Hours (Table) 05/09/19 05/09/19 05/09/19 Range/Units 11:57 17:17 20:02 POC Glucose (mg/dL) 224 H 286 H 266 H (75-99) mg/dL 05/10/19 Range/Units 07:14 POC Glucose (mg/dL) 220 H (75-99) mg/dL Microbiology - Last 24 Hours (Table) 05/09/19 15:00 Gram Stain - Preliminary Sputum Sputum Culture - Preliminary 05/07/19 15:25 Blood Culture - Preliminary Blood No Growth after 48 hours Assessment and Plan Assessment: #1 Acute exacerbation of chronic obstructive pulmonary disease. FEV1 value of 46% of predicted. #2 Acute on chronic hypoxic respiratory failure utilizing oxygen at home mostly at nighttime, currently on 3 L of oxygen by nasal cannula, attributed to COPD exacerbation #3 Chronic and ongoing tobacco dependence. #4 Osteoarthritis. #5 History of SVT Along with history of coronary artery disease with previous myocardial infarction #6 Hyperlipidemia. Plan The patient was seen and evaluated by Dr. Robison. The patient is improved but not quite back to his baseline. We'll continue with the current treatment plan including DuoNeb inhalations, Symbicort, IV Solu-Medrol. He is again educated regarding importance of complete smoking cessation. We will continue to follow and make further recommendations based on his clinical status. Probable discharge in the a.m. I, the cosigning physician, performed a history & physical examination of the patient. Lungs sounds with bilateral end expiratory wheeze, diminished. Maintaining good O2 saturations in the 90s on 3 L/m per nasal cannula. I discussed the assessment and plan of care with my nurse practitioner, Chayo Lynch. I attest to the note as dictated by her.
[2019-05-10 12:09] LABS: Glucose,Whole Blood 219 mg/dL (75-99)
--- NOTE | 2019-05-10 14:35 | P.PN ---
Subjective Progress Note Date: 05/10/19 Principal diagnosis: Patient is a pleasant 71-year-old male came with complaints of shortness of breath was started the few days ago much worse for last couple days patient didn't sleep much for last couple days patient was comparing of wheezing does have history of COPD uses 3 and half liters of oxygen chest x-ray did not show any significant pneumonia patient denied any fever chills patient is comparing of cough with the yellowish to greenish sputum production Acute on chronic hypercapnic respiratory failure secondary to COPD exacerbation Mr. Golden is a 73-year-old male with a past medical history of COPD, diabetes, hypertension, osteoarthritis, prostate disorder, supraventricular tachycardia coming in with a chief complaint of difficulty in breathing. He is currently being treated for COPD exacerbation. On 05/08/2019 patient is comfortably sitting in bed. He complains of mild difficulty in breathing. Denies having any chest pain or palpitations. No abdominal pain nausea vomiting. He complains of mild lower extremity edema. No orthopnea PND. He also mentions about having BPH and the Flomax helps him with his urinary stream. On 05/09/2019 - patient is sitting up in the bed appears to be no acute distress. He is still complains of mild difficulty in breathing. He, complains about hoarseness of his voice. His daughter is at the bedside, she has concerns about him having pertussis as she was recently diagnosed with pertussis. Patient also complains of some bloating sensation in his belly. He had a bowel movement yesterday. Denies having any nausea vomiting or abdominal pain. No dysuria or hematuria. 05/10/2019 Patient is lying in bed and appears to be in no acute distress. Denies any acute overnight issues. Patient states that his breathing has gotten slightly better and continues to have coughing spells and is able to expectorate some phlegm that is greenish yellow in nature. Pertussis testing is pending at this time. Currently patient denies any chest pain or palpitations. Patient is maintained on 3 L of oxygen via nasal cannula. Patient is afebrile. Patient denies any nausea or vomiting and has been tolerating diet. Objective - Vital Signs Vital signs: Vital Signs Temp 98.0 F 05/10/19 05:15 Pulse 88 05/10/19 07:19 Resp 18 05/10/19 05:15 BP 165/76 05/10/19 05:15 Pulse Ox 97 05/10/19 07:07 Intake & Output 05/09/19 05/10/19 05/10/19 18:59 06:59 18:59 Intake Total 320 Output Total 700 925 Balance -380 -925 Intake: Oral 320 Output: Urine 700 925 Other: # Voids 1 - Exam GENERAL: The patient is alert and oriented x3, not in any acute distress. Well developed, well nourished. HEENT: No pallor. No icterus. CARDIOVASCULAR: S1 and S2 present. No murmurs, rubs, or gallops. PULMONARY: Decreased air entry bilaterally, expiratory wheezes noted on exam. ABDOMEN: Soft, nontender, nondistended, normoactive bowel sounds. No palpable organomegaly. MUSCULOSKELETAL: No joint swelling or deformity. EXTREMITIES: No cyanosis, clubbing, mild pedal edema. NEUROLOGICAL: Gross neurological examination did not reveal any focal deficits. - Labs CBC & Chem 7: 05/07/19 13:25 05/08/19 07:13 Labs: Abnormal Lab Results - Last 24 Hours (Table) 05/09/19 05/09/19 05/09/19 Range/Units 11:57 17:17 20:02 POC Glucose (mg/dL) 224 H 286 H 266 H (75-99) mg/dL 05/10/19 Range/Units 07:14 POC Glucose (mg/dL) 220 H (75-99) mg/dL Microbiology - Last 24 Hours (Table) 05/09/19 15:00 Gram Stain - Preliminary Sputum Sputum Culture - Preliminary 05/07/19 15:25 Blood Culture - Preliminary Blood No Growth after 48 hours Assessment and Plan Assessment: Acute on chronic hypoxic respiratory failure Acute COPD exacerbation History of coronary artery disease BPH Hyperlipidemia Hypertension Multiple joint osteoarthritis History of supraventricular tachycardia Type 2 diabetes mellitus Bilateral total hip arthroplasty PLAN: Patient will be continued on IV Solu-Medrol, Omnicef and breathing treatments. Pertussis is still pending at this time. Further recommendations to follow depending on the progress of the patient. Smoking cessation counseling was provided. Possible discharge in 24 hours.
[2019-05-10 17:15] LABS: Glucose,Whole Blood 292 mg/dL (75-99)
[2019-05-10 20:20] LABS: Glucose,Whole Blood 320 mg/dL (75-99)
[2019-05-10] MEDS: SERTRALINE 25 MG TAB PO SCH (20:34)
[2019-05-11] MEDS: IPRATROPIUM-ALBUTEROL 3 ML NEB INHALATION PRN (03:10)
[2019-05-11 07:00] LABS: Glucose,Whole Blood 252 mg/dL (75-99)
[2019-05-11] MEDS: SYMBICORT 160-4.5 MCG INHALER INHALATION SCH ×2 (07:39→19:13)
[2019-05-11] MEDS: IPRATROPIUM-ALBUTEROL 3 ML NEB INHALATION SCH ×4 (07:39→19:13)
[2019-05-11] MEDS: NICOTINE 21MG/24HR PATCH TRANSDERM SCH (07:47)
[2019-05-11] MEDS: methylPREDNISolone SOD SUCCI 40 MG/ML 1 ML VIAL IV SCH (07:47)
[2019-05-11] MEDS: INSULIN ASPART (NovoLOG) 100 UNIT/ML VIAL SQ SCH ×4 (07:47→21:58)
[2019-05-11] MEDS: HEPARIN SODIUM,PORCINE 5,000 UNIT/ML 1 ML VIAL SQ SCH ×2 (07:47→16:41)
[2019-05-11] MEDS: ATORVASTATIN 20 MG TAB PO SCH (07:48)
[2019-05-11] MEDS: ASPIRIN 81 MG PO SCH (07:48)
[2019-05-11] MEDS: TAMSULOSIN 0.4 MG CAP.ER.24H PO SCH (07:48)
[2019-05-11] MEDS: FAMOTIDINE 20 MG TAB PO SCH ×2 (07:48→21:31)
[2019-05-11] MEDS: CEFDINIR 300 MG CAP PO SCH ×2 (07:50→21:31)
[2019-05-11 09:34] LABS: African American GFR (CKD) >90 (>60 ml/min/1.73 sqM); Anion Gap 11 mmol/L; Blood Urea Nitrogen 29 mg/dL (9-20); Calcium 9.6 mg/dL (8.4-10.2); Carbon Dioxide 27 mmol/L (22-30); Chloride 96 mmol/L (98-107); Glucose 267 mg/dL (74-99); Non-African American GFR(CKD) 80 (>60 ml/min/1.73 sqM); Potassium 4.9 mmol/L (3.5-5.1); Sodium 134 mmol/L (137-145)
[2019-05-11 10:01] LABS: Basophils % (A) 0 %; Eosinophils % (A) 0 %; HCT 41.5 % (39.0-53.0); HGB 13.1 gm/dL (13.0-17.5); Lymphocytes # (A) 1.3 k/uL (1.0-4.8); Lymphocytes % (A) 11 %; MCH 29.1 pg (25.0-35.0); MCHC 31.7 g/dL (31.0-37.0); Mean Platelet Volume 8.7; Monocytes # (A) 0.5 k/uL (0-1.0); Monocytes % (A) 5 %; Neutrophils # (A) 9.4 k/uL (1.3-7.7); Neutrophils % (A) 83 %; Platelet Count 259 k/uL (150-450); RBC 4.51 m/uL (4.30-5.90); RDW 14.8 % (11.5-15.5); WBC 11.3 k/uL (3.8-10.6)
[2019-05-11 12:09] LABS: Glucose,Whole Blood 265 mg/dL (75-99)
--- NOTE | 2019-05-11 12:34 | P.PN ---
Subjective Progress Note Date: 05/11/19 Principal diagnosis: Acute exacerbation of chronic obstructive pulmonary disease This a very pleasant 73-year-old gentleman who follows with Dr. Peres as his primary care provider. He has a history of coronary artery disease, hyperlipidemia, osteoarthritis. He also has a history of COPD chronic hypoxic respiratory failure on home oxygen, prednisone dependent at 5 mg daily, he carries an FEV1 of 46% of predicted. He is a chronic smoker and he has been maintained on Symbicort 2 puffs twice a day and Proventil rescue inhaler on an as-needed basis. The patient has been seeing Dr. Robison on a regular basis and was actually seen there yesterday for increasing shortness of breath, cough or congestion. He was given Depo-Medrol a prednisone taper however today he became more short of breath and presented here to the emergency room. He is seen in consultation on the regular medical floor. He is awake and alert in no acute distress. He is dyspneic with minimal exertion. Dry nonproductive cough. He is x-ray shows chronic changes along with a new mild fluid volume overload. He is maintaining O2 saturations in the 90s on 3 L/m per nasal cannula. He's been afebrile. Hemodynamically stable. The patient is seen today 05/08/2019 in follow-up on the regular medical floor. He is currently awake and alert in no acute distress. He is breathing a bit easier today compared to yesterday. Not back to his baseline. Still dyspneic on conversation and minimal exertion. His maintaining good O2 saturations in the 90s on 3 L/m per nasal cannula. Sodium 138.. Potassium 4.7. Creatinine 1.18. He is continued on IV Solu-Medrol, bronchodilators, NicoDerm patch has been ordered. On 05/09/2019 the patient is still showing wall and slow recovery. Less short of breath. Still on IV Solu-Medrol. He is receiving 40 mg every 12 hours. No other new complaints otherwise for now. He may benefit from another day of treatment and possible discharge within the next 24 hours. No other new complaints. Blood sugar slightly elevated and the most recent blood sugars in the 250 range. The patient is seen today 05/10/2019 in follow-up on the regular medical floor. He is sitting up at the bedside. Awake and alert in no acute distress. Breathing easier today as compared to yesterday. Today's with an occasional cough. Maintaining O2 saturations in the mid 90s on 3 L/m per nasal cannula. Remains afebrile. Blood and sputum cultures reveal no growth. Pertussis screen pending. Blood glucose 220. Continued on DuoNeb inhalations, Symbicort, IV Solu-Medrol. NicoDerm patch in place. The patient is seen today 05/11/2019 in follow-up on the regular medical floor. He is been up ambulating in his room. Up in the shower. Improved today compared to yesterday. No worsening shortness of breath, cough or congestion. Maintaining O2 saturations in the 90s on 3 L/m per nasal cannula. Blood and sputum cultures reveal no growth. White count 11.3. Hemoglobin 13.1. Creatinine 0.95. He is treated with DuoNeb inhalations, Symbicort, IV Solu- Medrol. NicoDerm patch in place. Objective - Vital Signs Vital signs: Vital Signs Temp 98.3 F 05/11/19 06:08 Pulse 84 05/11/19 11:58 Resp 16 05/11/19 06:08 BP 147/70 05/11/19 06:08 Pulse Ox 96 05/11/19 06:08 Intake & Output 05/10/19 05/11/19 05/11/19 18:59 06:59 18:59 Output Total 1200 Balance -1200 Output: Urine 1200 Other: # Voids 1 - Exam GENERAL EXAM: Alert, pleasant 73-year-old gentleman, on 3 L nasal cannula, comfortable at rest. HEAD: Normocephalic. EYES: Normal reaction of pupils, equal size. NOSE: Clear with pink turbinates. THROAT: No erythema or exudates. NECK: No masses, no JVD. CHEST: No chest wall deformity. LUNGS: Equal air entry with bilateral end expiratory wheeze, diminished. CVS: S1 and S2 normal with no audible murmur, regular rhythm. ABDOMEN: No hepatosplenomegaly, normal bowel sounds, no guarding or rigidity. SPINE: No scoliosis or deformity SKIN: No rashes CENTRAL NERVOUS SYSTEM: Alert, oriented 3. No focal deficits, tone is normal in all 4 extremities. EXTREMITIES: There is no peripheral edema. No clubbing, no cyanosis. Peripheral pulses are intact. - Labs CBC & Chem 7: 05/11/19 09:01 05/11/19 09:01 Labs: Abnormal Lab Results - Last 24 Hours (Table) 05/10/19 05/10/19 05/11/19 Range/Units 17:12 20:18 06:58 WBC (3.8-10.6) k/uL Neutrophils # (1.3-7.7) k/uL Sodium (137-145) mmol/L Chloride (98-107) mmol/L BUN (9-20) mg/dL Glucose (74-99) mg/dL POC Glucose (mg/dL) 292 H 320 H 252 H (75-99) mg/dL 05/11/19 05/11/19 05/11/19 Range/Units 09:01 09:01 12:03 WBC 11.3 H (3.8-10.6) k/uL Neutrophils # 9.4 H (1.3-7.7) k/uL Sodium 134 L (137-145) mmol/L Chloride 96 L (98-107) mmol/L BUN 29 H (9-20) mg/dL Glucose 267 H (74-99) mg/dL POC Glucose (mg/dL) 265 H (75-99) mg/dL Microbiology - Last 24 Hours (Table) 05/09/19 15:00 Gram Stain - Final Sputum Sputum Culture - Final 05/07/19 15:25 Blood Culture - Preliminary Blood No Growth after 72 hours Assessment and Plan Assessment: #1 Acute exacerbation of chronic obstructive pulmonary disease. FEV1 value of 46% of predicted. #2 Acute on chronic hypoxic respiratory failure utilizing oxygen at home mostly at nighttime, currently on 3 L of oxygen by nasal cannula, attributed to COPD exacerbation #3 Chronic and ongoing tobacco dependence. #4 Osteoarthritis. #5 History of SVT Along with history of coronary artery disease with previous myocardial infarction #6 Hyperlipidemia. Plan The patient was seen and evaluated by Dr. Robison. The plan is for discharge in the a.m. We'll continue with the current treatment plan including DuoNeb inhalations, Symbicort. Convert to oral prednisone taper starting at 40 mg 4 days. He is again educated regarding importance of complete smoking cessation. Follow up in the office in 1-2 weeks' time. I, the cosigning physician, performed a history & physical examination of the patient. Lungs sounds with bilateral end expiratory wheeze, diminished. Maintaining good O2 saturations in the 90s on 3 L/m per nasal cannula. I discussed the assessment and plan of care with my nurse practitioner, Chayo Lynch. I attest to the note as dictated by her.
[2019-05-11 15:03] LABS: Bordedella pertussis Not detected (Not detected); Bordetella holmesII Not detected (Not detected); Bordetella parapertussis Not detected (Not detected)
--- NOTE | 2019-05-11 16:06 | P.PN ---
Subjective Progress Note Date: 05/11/19 Principal diagnosis: Patient is a pleasant 71-year-old male came with complaints of shortness of breath was started the few days ago much worse for last couple days patient didn't sleep much for last couple days patient was comparing of wheezing does have history of COPD uses 3 and half liters of oxygen chest x-ray did not show any significant pneumonia patient denied any fever chills patient is comparing of cough with the yellowish to greenish sputum production Acute on chronic hypercapnic respiratory failure secondary to COPD exacerbation Mr. Golden is a 73-year-old male with a past medical history of COPD, diabetes, hypertension, osteoarthritis, prostate disorder, supraventricular tachycardia coming in with a chief complaint of difficulty in breathing. He is currently being treated for COPD exacerbation. On 05/08/2019 patient is comfortably sitting in bed. He complains of mild difficulty in breathing. Denies having any chest pain or palpitations. No abdominal pain nausea vomiting. He complains of mild lower extremity edema. No orthopnea PND. He also mentions about having BPH and the Flomax helps him with his urinary stream. On 05/09/2019 - patient is sitting up in the bed appears to be no acute distress. He is still complains of mild difficulty in breathing. He, complains about hoarseness of his voice. His daughter is at the bedside, she has concerns about him having pertussis as she was recently diagnosed with pertussis. Patient also complains of some bloating sensation in his belly. He had a bowel movement yesterday. Denies having any nausea vomiting or abdominal pain. No dysuria or hematuria. 05/10/2019 Patient is lying in bed and appears to be in no acute distress. Denies any acute overnight issues. Patient states that his breathing has gotten slightly better and continues to have coughing spells and is able to expectorate some phlegm that is greenish yellow in nature. Pertussis testing is pending at this time. Currently patient denies any chest pain or palpitations. Patient is maintained on 3 L of oxygen via nasal cannula. Patient is afebrile. Patient denies any nausea or vomiting and has been tolerating diet. 05/11/2019 Patient is sitting up at the side of the bed and appears to be in no acute distress. Daughter is at the bedside. Patient continues to improve but is not currently at baseline and continues to have coughing spells and shortness of breath with exertion. Pertussis screen was negative. Will Continue with IV steroids, DuoNeb inhalations, and Symbicort at this time. Discussed with patient at length along with daughter at the bedside about smoking cessation and avoiding all tobacco use. Patient verbalizes understanding but states this will be very challenging but is willing to try to quit. Patient currently has a Nicotrol Patch on. Objective - Vital Signs Vital signs: Vital Signs Temp 98.3 F 05/11/19 06:08 Pulse 84 05/11/19 15:35 Resp 16 05/11/19 06:08 BP 147/70 05/11/19 06:08 Pulse Ox 96 05/11/19 06:08 Intake & Output 05/10/19 05/11/19 05/11/19 18:59 06:59 18:59 Output Total 1200 600 Balance -1200 -600 Output: Urine 1200 600 Other: # Voids 1 2 - Exam GENERAL: The patient is alert and oriented x3, not in any acute distress. Well developed, well nourished. HEENT: No pallor. No icterus. CARDIOVASCULAR: S1 and S2 present. No murmurs, rubs, or gallops. PULMONARY: Decreased air entry bilaterally, expiratory wheezes noted on exam. Improved from yesterday. ABDOMEN: Soft, nontender, nondistended, normoactive bowel sounds. No palpable organomegaly. MUSCULOSKELETAL: No joint swelling or deformity. EXTREMITIES: No cyanosis, clubbing, mild pedal edema. NEUROLOGICAL: Gross neurological examination did not reveal any focal deficits. - Labs CBC & Chem 7: 05/11/19 09:01 05/11/19 09:01 Labs: Abnormal Lab Results - Last 24 Hours (Table) 05/10/19 05/10/19 05/11/19 Range/Units 17:12 20:18 06:58 WBC (3.8-10.6) k/uL Neutrophils # (1.3-7.7) k/uL Sodium (137-145) mmol/L Chloride (98-107) mmol/L BUN (9-20) mg/dL Glucose (74-99) mg/dL POC Glucose (mg/dL) 292 H 320 H 252 H (75-99) mg/dL 05/11/19 05/11/19 05/11/19 Range/Units 09:01 09:01 12:03 WBC 11.3 H (3.8-10.6) k/uL Neutrophils # 9.4 H (1.3-7.7) k/uL Sodium 134 L (137-145) mmol/L Chloride 96 L (98-107) mmol/L BUN 29 H (9-20) mg/dL Glucose 267 H (74-99) mg/dL POC Glucose (mg/dL) 265 H (75-99) mg/dL Microbiology - Last 24 Hours (Table) 05/09/19 15:00 Gram Stain - Final Sputum Sputum Culture - Final 05/07/19 15:25 Blood Culture - Preliminary Blood No Growth after 72 hours Assessment and Plan Assessment: Acute on chronic hypoxic respiratory failure Acute COPD exacerbation History of coronary artery disease BPH Hyperlipidemia Hypertension Multiple joint osteoarthritis History of supraventricular tachycardia Type 2 diabetes mellitus Bilateral total hip arthroplasty PLAN: Patient will be continued on IV Solu-Medrol, Omnicef and breathing treatments. Pertussis was negative. Pulmonary is following. Patient will be transitioned oral prednisone taper upon discharge. Further recommendations to follow depending on the progress of the patient. Smoking cessation counseling w as provided once again with daughter at the bedside. Possible discharge in 24 hours.
[2019-05-11 16:49] LABS: Glucose,Whole Blood 336 mg/dL (75-99)
[2019-05-11 21:06] LABS: Glucose,Whole Blood 296 mg/dL (75-99)
[2019-05-11] MEDS: SERTRALINE 25 MG TAB PO SCH (21:31)
[2019-05-12] MEDS: HEPARIN SODIUM,PORCINE 5,000 UNIT/ML 1 ML VIAL SQ SCH ×2 (00:20→08:13)
[2019-05-12] MEDS: IPRATROPIUM-ALBUTEROL 3 ML NEB INHALATION PRN (02:12)
[2019-05-12 05:41] VITALS: BP 164/73; RESP 16; TEMP 98
[2019-05-12] MEDS: SYMBICORT 160-4.5 MCG INHALER INHALATION SCH (07:33)
[2019-05-12] MEDS: IPRATROPIUM-ALBUTEROL 3 ML NEB INHALATION SCH ×2 (07:33→11:54)
[2019-05-12 07:39] LABS: Glucose,Whole Blood 242 mg/dL (75-99)
[2019-05-12] MEDS: ATORVASTATIN 20 MG TAB PO SCH (08:13)
[2019-05-12] MEDS: CEFDINIR 300 MG CAP PO SCH (08:13)
[2019-05-12] MEDS: FAMOTIDINE 20 MG TAB PO SCH (08:13)
[2019-05-12] MEDS: TAMSULOSIN 0.4 MG CAP.ER.24H PO SCH (08:13)
[2019-05-12] MEDS: ASPIRIN 81 MG PO SCH (08:13)
[2019-05-12] MEDS: NICOTINE 21MG/24HR PATCH TRANSDERM SCH (08:13)
[2019-05-12] MEDS: INSULIN ASPART (NovoLOG) 100 UNIT/ML VIAL SQ SCH ×2 (08:14→13:02)
[2019-05-12] MEDS ORDERED: predniSONE 20 MG TAB PO SCH (09:00)
[2019-05-12 11:28] LABS: Glucose,Whole Blood 217 mg/dL (75-99)
[2019-05-12 12:05] VITALS: PULSE 80
--- NOTE | 2019-05-12 13:10 | P.DS ---
Providers Date of admission: 05/07/19 15:06 Expected date of discharge: 05/12/19 Attending physician: Destiny Leon MD Consults: 05/07/19 15:15 Consult Physician Urgent Consulting Provider: Bonnie Robison Consult Reason/Comments: dyspnea Do you want consulting provider notified?: Yes Primary care physician: Britni Peres [facility] Course: Final diagnosis Acute on chronic hypoxic respiratory failure Acute COPD exacerbation History of coronary artery disease BPH Hyperlipidemia Hypertension Multiple joint osteoarthritis History of supraventricular tachycardia Type 2 diabetes mellitus Bilateral total hip arthroplasty Discharge disposition Patient is being discharged in a stable condition with guarded prognosis to home and will follow-up with primary care provider in the outpatient setting upon discharge. Patient will also follow-up with pulmonary in the outpatient setting in 1-2 weeks. Patient will continue with the prednisone taper along with bronchodilators and a short course of oral antibiotics in the form of Omnicef. Total time taken is 35 minutes. History of present illness This is a pleasant 73-year-old male who was recently admitted for shortness of breath with significant wheezing with acute on chronic hypercapnic respiratory failure secondary to COPD exacerbation and was being closely monitored. Patient was started on IV steroids along with bronchodilators and Omnicef. Pulmonary is following. Patient normally requires 3-1/2 L of oxygen at home via nasal cannula and will continue with this. Discussed with the patient at length multiple times about smoking cessation and avoiding all tobacco use and exposure to. Currently patient denies any chest pain or palpitations. Patient continues to have some shortness of breath with exertion but feels he is at his baseline. Patient is afebrile. Patient denies any nausea or vomiting and has been tolerating diet. Patient will continue on a steroid taper in the outpatient setting along with a short course of oral antibiotics in the form Omnicef for the next few days and then may discontinue. Patient will continue with inhalers. Patient did have pertussis testing done as his daughter who is with him all the time recently had pertussis. Patient's pertussis testing was negative. On exam vital signs are stable. Temp is 98F, pulse is 78, respirations are 16, blood pressure is 164/73, oxygen saturation is 97% on 3 L via nasal cannula. Patient normally wears 3-3-1/2 L of oxygen at home. Respiratory system shows diminished breath sounds at the bases with no wheezing or rhonchi noted. Abdomen is soft and nontender. Nervous system shows no focal deficits. Please refer to medication reconciliation sheet for a list of medications. Patient Condition at Discharge: Stable Plan - Discharge Summary Discharge Rx Participant: No New Discharge Prescriptions: New Cefdinir [Omnicef] 300 mg PO BID 4 Days #8 cap Famotidine [Pepcid] 20 mg PO BID 30 Days #60 tab predniSONE 10 mg PO DIRECTED #30 tab Continue Atorvastatin [Lipitor] 20 mg PO DAILY Aspirin 81 mg PO DAILY Budesonide-Formot 160-4.5 Mcg [Symbicort 160-4.5 Mcg Inhaler] 2 puff INHALATION RT-BID Metoprolol Tartrate [Lopressor] 25 mg PO DAILY Ibuprofen [Motrin] 800 mg PO TID PRN PRN Reason: Pain Ipratropium-Albuterol Nebulize [Duoneb 0.5 mg-3 mg/3 ml Soln] 3 ml INHALATION RT-QID metFORMIN HCL 500 mg PO BID Sertraline HCl [Zoloft] 25 mg PO HS Tamsulosin HCl [Flomax] 0.4 mg PO DAILY Discontinued predniSONE See Taper PO DAILY Sulfamethox-Tmp 800-160Mg [Bactrim DS 800-160 mg] 1 tab PO Q12HR Discharge Medication List Aspirin 81 mg PO DAILY 07/17/16 [History] Atorvastatin [Lipitor] 20 mg PO DAILY 07/17/16 [History] Budesonide-Formot 160-4.5 Mcg [Symbicort 160-4.5 Mcg Inhaler] 2 puff INHALATION RT-BID 07/17/16 [History] Metoprolol Tartrate [Lopressor] 25 mg PO DAILY 07/23/18 [History] Ibuprofen [Motrin] 800 mg PO TID PRN 03/24/19 [History] Ipratropium-Albuterol Nebulize [Duoneb 0.5 mg-3 mg/3 ml Soln] 3 ml INHALATION RT-QID 05/07/19 [History] Sertraline HCl [Zoloft] 25 mg PO HS 05/07/19 [History] Tamsulosin HCl [Flomax] 0.4 mg PO DAILY 05/07/19 [History] metFORMIN HCL 500 mg PO BID 05/07/19 [History] Cefdinir [Omnicef] 300 mg PO BID 4 Days #8 cap 05/12/19 [Rx] Famotidine [Pepcid] 20 mg PO BID 30 Days #60 tab 05/12/19 [Rx] predniSONE 10 mg PO DIRECTED #30 tab 05/12/19 [Rx] Follow up Appointment(s)/Referral(s): Bonnie Robison MD [STAFF PHYSICIAN] - 1 Week Britni Peres MD [Primary Care Provider] - 1-2 days Activity/Diet/Wound Care/Special Instructions: Activity Limited until follow-up Continue current diet Continue to monitor blood sugars before meals at bedtime, blood sugars will be slightly elevated due to steroids Continue with antibiotics until finished Follow-up with primary care provider upon discharge Follow-up with pulmonary in 1-2 weeks in the outpatient setting Continue to avoid all tobacco use Discharge Disposition: HOME SELF-CARE
== END 2019-05-12 15:49 | disposition home or self-care (01) | DRG 190 ==
LOC: EC 12:35 → 6NMEDSUR 15:06
PROVIDERS: ADMIT Internal Medicine; ATTEND Internal Medicine
DX: J44.1 Chronic obstructive pulmonary disease with (acute) exacerbation (principal); J96.21 Acute and chronic respiratory failure with hypoxia; J96.22 Acute and chronic respiratory failure with hypercapnia; Z71.6 Tobacco abuse counseling; F17.210 Nicotine dependence, cigarettes, uncomplicated; E11.65 Type 2 diabetes mellitus with hyperglycemia; E78.5 Hyperlipidemia, unspecified; E87.5 Hyperkalemia; E87.70 Fluid overload, unspecified; I10 Essential (primary) hypertension; I25.10 Atherosclerotic heart disease of native coronary artery without angina pectoris; I25.2 Old myocardial infarction; M15.9 Polyosteoarthritis, unspecified; N40.0 Benign prostatic hyperplasia without lower urinary tract symptoms; Z79.51 Long term (current) use of inhaled steroids; Z79.52 Long term (current) use of systemic steroids; Z79.82 Long term (current) use of aspirin; Z79.84 Long term (current) use of oral hypoglycemic drugs; Z79.899 Other long term (current) drug therapy; Z80.6 Family history of leukemia; Z82.5 Family history of asthma and other chronic lower respiratory diseases; Z83.3 Family history of diabetes mellitus; Z96.643 Presence of artificial hip joint, bilateral; Z99.81 Dependence on supplemental oxygen; Z98.42 Cataract extraction status, left eye; Z98.41 Cataract extraction status, right eye; Z88.0 Allergy status to penicillin; Z87.01 Personal history of pneumonia (recurrent); Z87.440 Personal history of urinary (tract) infections
CPT/HCPCS: 36415; 71046; 80048; 80053; 84484; 85025; 85610; 85730; 87040; 87070; 87205; 87798; 93005; 94640; 94760; 96374; 99285

== ENCOUNTER → 2021-02-01 | Outpatient (CLI) | payer MEDICARE | END | disposition home or self-care (01) | LOC: LABWHC1 14:15 | PROVIDERS: ATTEND Internal Medicine | DX: Z20.822 Contact with and (suspected) exposure to COVID-19 (principal); R06.02 Shortness of breath; R68.89 Other general symptoms and signs | CPT/HCPCS: U0003; U0005 ==

== ENCOUNTER 2023-04-13 14:30 | Inpatient (IN) | payer MEDICARE ==
--- NOTE | 2023-04-13 14:46 | ED ---
SOB HPI - General Chief Complaint: Shortness of Breath Stated Complaint: GIL Time Seen by Provider: 04/13/23 14:36 Source: patient, RN notes reviewed Mode of arrival: ambulatory Limitations: no limitations - History of Present Illness Initial Comments: This is a 77-year-old male who presents to the emergency department for shortness of breath. Patient reports increasing shortness of breath over the last 3 days. Denies any chest pain. He has associated coughing and is producing a large amount of mucus. He does have COPD and wears oxygen only at night, however over the last few days he has had to use it all day. He has been using his inhalers and breathing treatments with no relief in symptoms. States that when he feels like this it is either due to a COPD exacerbation or pneumonia, however he has not felt this bad in a long time. Currently follows with Dr. Robison, pulmonology, for management of the COPD. MD Complaint: shortness of breath Onset/Timin -: days(s) - Related Data Home Medications Medication Instructions Recorded Confirmed Aspirin 81 mg PO DAILY 07/17/16 04/13/23 Atorvastatin [Lipitor] 20 mg PO DAILY 07/17/16 04/13/23 Budesonide-Formot 160-4.5 Mcg 2 puff INHALATION RT-BID 07/17/16 04/13/23 [Symbicort 160-4.5 Mcg Inhaler] Metoprolol Tartrate [Lopressor] 25 mg PO DAILY 07/23/18 04/13/23 Ibuprofen [Motrin] 800 mg PO BID PRN 03/24/19 04/13/23 Ipratropium-Albuterol Nebulize 3 ml INHALATION RT-Q4H 05/07/19 04/13/23 [Duoneb 0.5 mg-3 mg/3 ml Soln] Albuterol Sulfate [Albuterol 2 puff PO RT-Q4H PRN 04/13/23 04/13/23 Sulfate Hfa] Theophylline 24 Hour [Sonido-24] 400 mg PO DAILY 04/13/23 04/13/23 predniSONE [Deltasone] 20 mg PO DAILY 04/13/23 04/13/23 Allergies Allergy/AdvReac Type Severity Reaction Status Date / Time Penicillins Allergy Unknown Verified 04/13/23 16:11 Review of Systems ROS Statement: Those systems with pertinent positive or pertinent negative responses have been documented in the HPI. ROS Other: All systems not noted in ROS Statement are negative. Past Medical History Past Medical History: Chest Pain / Angina, COPD, Diabetes Mellitus, Hyperlipidemia, Myocardial Infarction ([place]), Osteoarthritis (OA), Pneumonia, Prostate Disorder, Supraventricular Tachycardia (SVT) Additional Past Medical History / Comment(s): Chronic hypoxic respiratory failure with home oxygen pt mostly just wears at night, past acute hypoxic respiratory failure requiring bipap, newly diagnosed NIDDM type II, BPH, UTI Last Myocardial Infarction Date:: 2008 History of Any Multi-Drug Resistant Organisms: None Reported Past Surgical History: Back Surgery, Heart Catheterization, Hernia Repair, Joint Replacement Additional Past Surgical History / Comment(s): microlaryngoscopy w/ lt vocal cord bx-neg, bronch-lung bx-neg, lt inguinal hernia, low back surgery, bilateral total hip arthroplasties, bilateral cataracts removed. Past Anesthesia/Blood Transfusion Reactions: No Reported Reaction Past Psychological History: No Psychological Hx Reported Smoking Status: Current every day smoker Past Alcohol Use History: Rare Past Drug Use History: None Reported - Past Family History Mother Family Medical History: COPD, Diabetes Mellitus Father Family Medical History: COPD, Diabetes Mellitus Brother(s) Family Medical History: Cancer Additional Family Medical History / Comment(s): leukemia General Exam Limitations: no limitations General appearance: alert, in no apparent distress Head exam: Present: atraumatic, normocephalic, normal inspection Respiratory exam: Present: respiratory distress, decreased breath sounds, prolonged expiratory. Absent: wheezes, rales, rhonchi Cardiovascular Exam: Present: regular rate, normal rhythm, normal heart sounds. Absent: systolic murmur, diastolic murmur, rubs, gallop, clicks Neurological exam: Present: alert, oriented X3, CN II-XII intact Psychiatric exam: Present: normal affect, normal mood Skin exam: Present: warm, dry, intact, normal color. Absent: rash Course Vital Signs 04/13/23 04/13/23 04/13/23 14:33 15:14 16:18 Temperature 98.1 F Pulse Rate 89 85 99 Respiratory 18 22 Rate Blood Pressure 156/69 131/68 O2 Sat by Pulse 99 98 Oximetry 04/13/23 04/13/23 16:28 17:20 Temperature Pulse Rate 88 83 Respiratory 22 Rate Blood Pressure 144/59 O2 Sat by Pulse 99 Oximetry Medical Decision Making - Medical Decision Making This is a 77-year-old male who presents to the emergency department for difficulty breathing. Was pt. sent in by a medical professional or institution? @ -No Did you speak to anyone other than the patient for history? @ -No Did you review nursing and triage notes? @ -Yes, and I agree, it is accurate with regards to the patient's symptoms. Were old charts reviewed? @ -No Differential Diagnosis? @ -Differential Dyspnea: Coronary syndrome, arrhythmia, tamponade, asthma, COPD, pulmonary embolism, pneumonia, pneumothorax, pulmonary effusion, anaphylaxis, diabetic ketoacidosis, flailed chest, pulmonary contusion, diaphragmatic rupture, anemia, neuromuscular, this is not meant to be an all-inclusive list. EKG interpreted by me (3pts min.)? @ -EKG interpreted by me demonstrating the following: Sinus rhythm. Ventricular rate 82 beats per minute, [place] interval 193 ms, QRS duration 85 ms, QTC 379 ms. X-rays interpreted by me (1pt min.)? @ -Chest x-ray obtained. My interpretation identifies pulmonary vascular congestion. CT interpreted by me (1pt min.)? @ -Not obtained U/S interpreted by me (1pt. min.)? @ -Not obtained What testing was considered but not performed? (CT, X-rays, U/S, labs)? Why? @ -None What meds were considered but not given? Why? @ -None Did you discuss the management of the patient with other professionals? @ -Yes, Dr. Hunt, who accepts the patient for admission. Did you reconcile home meds? @ -Yes Was smoking cessation discussed for >3mins.? @ -I discussed smoking cessation for greater than 3 minutes. The risk of smoking were discussed with the patient including but not limited to risks of cancer, stroke, coronary artery disease and COPD. Also discussed with patient were multiple methods of quitting smoking. Lastly we discussed the financial cost of smoking. Was critical care preformed (if so, how long)? @ -No Were there social determinants of health that impacted care today? How? (Homelessness, low income, unemployed, alcoholism, drug addiction, transportation, low edu. Level, literacy, decrease access to med. care, [facility], rehab)? @ -No Was there de-escalation of care discussed even if they declined? (Discuss DNR or withdrawal of care, Hospice)? @ -No What co-morbidities impacted this encounter? (DM, HTN, Smoking, COPD, CAD, Cancer, CVA, Hep., AIDS, mental health diagnosis, sleep apnea, morbid obesity)? @ -COPD, DM, smoking, HLD Was patient admitted / discharged? @ -Admitted. Lab work obtained revealing mild leukocytosis and was otherwise unremarkable. Covid, influenza, and RSV testing were negative. Chest x-ray r eveals mild pulmonary vascular congestion and interstitial edema concerning for CHF. BNP normal at 437. Patient was working very hard to breathe on exam and was requiring 3 L of oxygen via nasal cannula, which he usually only requires at night. He was producing a large amount of sputum and this was sent for culture. Given the patient's notable respiratory distress and increased use of oxygen, he was admitted to medicine for further management. Consult placed for pulmonology. Undiagnosed new problem with uncertain prognosis? @ -None Drug Therapy requiring intensive monitoring for toxicity (Heparin, Nitro, Insulin, Cardizem)? @ -None Were any procedures done? @ -None Diagnosis/symptom? @ -COPD exacerbation Acute, or Chronic, or Acute on Chronic? @ -Acute on chronic Uncomplicated (without systemic symptoms) or Complicated (systemic symptoms)? @ -Uncomplicated Side effects of treatment? @ -None Exacerbation, Progression, or Severe Exacerbation] @ -Exacerbation Poses a threat to life or bodily function? @ -Yes This case was discussed in detail with the attending ED physician, Dr. Quick. Presentation, findings, and treatment plan discussed in detail as well. - Lab Data Result diagrams: 04/13/23 15:21 04/13/23 15:21 Lab Results 04/13/23 04/13/23 04/13/23 Range/Units 15:21 15:21 15:21 WBC 11.0 H (3.8-10.6) k/uL RBC 4.74 (4.30-5.90) m/uL Hgb 14.2 (13.0-17.5) gm/dL Hct 44.1 (39.0-53.0) % MCV 93.0 (80.0-100.0) fL MCH 29.9 (25.0-35.0) pg MCHC 32.1 (31.0-37.0) g/dL RDW 15.8 H (11.5-15.5) % Plt Count 170 (150-450) k/uL MPV 9.0 Neutrophils % 76 % Lymphocytes % 14 % Monocytes % 8 % Eosinophils % 1 % Basophils % 0 % Neutrophils # 8.4 H (1.3-7.7) k/uL Lymphocytes # 1.5 (1.0-4.8) k/uL Monocytes # 0.8 (0-1.0) k/uL Eosinophils # 0.1 (0-0.7) k/uL Basophils # 0.0 (0-0.2) k/uL PT 10.0 (10.0-12.5) sec INR 0.9 (<1.2) APTT 23.4 (22.0-30.0) sec Sodium 140 (137-145) mmol/L Potassium 3.6 (3.5-5.1) mmol/L Chloride 104 (98-107) mmol/L Carbon Dioxide 23 (22-30) mmol/L Anion Gap 13 mmol/L BUN 17 (9-20) mg/dL Creatinine 0.89 (0.66-1.25) mg/dL Est GFR (CKD-EPI)AfAm >90 (>60 ml/min/1.73 sqM) Est GFR (CKD-EPI)NonAf 83 (>60 ml/min/1.73 sqM) Glucose 97 (74-99) mg/dL Plasma Lactic Acid Jakub (0.7-2.0) mmol/L Calcium 9.3 (8.4-10.2) mg/dL Total Bilirubin 0.5 (0.2-1.3) mg/dL AST 20 (17-59) U/L ALT 27 (4-49) U/L Alkaline Phosphatase 83 (38-126) U/L Troponin I (0.000-0.034) ng/mL NT-Pro-B Natriuret Pep 437 pg/mL Total Protein 7.0 (6.3-8.2) g/dL Albumin 4.1 (3.5-5.0) g/dL Influenza Type A (PCR) (Not Detectd) Influenza Type B (PCR) (Not Detectd) RSV (PCR) (Not Detectd) SARS-CoV-2 (PCR) (Not Detectd) 04/13/23 04/13/2304/13/23 Range/Units 15:21 15:21 15:21 WBC (3.8-10.6) k/uL RBC (4.30-5.90) m/uL Hgb (13.0-17.5) gm/dL Hct (39.0-53.0) % MCV (80.0-100.0) fL MCH (25.0-35.0) pg MCHC (31.0-37.0) g/dL RDW (11.5-15.5) % Plt Count (150-450) k/uL MPV Neutrophils % % Lymphocytes % % Monocytes % % Eosinophils % % Basophils % % Neutrophils # (1.3-7.7) k/uL Lymphocytes # (1.0-4.8) k/uL Monocytes # (0-1.0) k/uL Eosinophils # (0-0.7) k/uL Basophils # (0-0.2) k/uL PT (10.0-12.5) sec INR (<1.2) APTT (22.0-30.0) sec Sodium (137-145) mmol/L Potassium (3.5-5.1) mmol/L Chloride (98-107) mmol/L Carbon Dioxide (22-30) mmol/L Anion Gap mmol/L BUN (9-20) mg/dL Creatinine (0.66-1.25) mg/dL Est GFR (CKD-EPI)AfAm (>60 ml/min/1.73 sqM) Est GFR (CKD-EPI)NonAf (>60 ml/min/1.73 sqM) Glucose (74-99) mg/dL Plasma Lactic Acid Jakub 1.1 (0.7-2.0) mmol/L Calcium (8.4-10.2) mg/dL Total Bilirubin (0.2-1.3) mg/dL AST (17-59) U/L ALT (4-49) U/L Alkaline Phosphatase (38-126) U/L Troponin I <0.012 (0.000-0.034) ng/mL NT-Pro-B Natriuret Pep pg/mL Total Protein (6.3-8.2) g/dL Albumin (3.5-5.0) g/dL Influenza Type A (PCR) Not Detected (Not Detectd) Influenza Type B (PCR) Not Detected (Not Detectd) RSV (PCR) Not Detected (Not Detectd) SARS-CoV-2 (PCR) Not Detected (Not Detectd) - Radiology Data Radiology results: report reviewed, image reviewed Disposition Clinical Impression: Nicotine dependence, COPD exacerbation Disposition: ADMITTED IP TO THIS HOSP
[2023-04-13 15:35] LABS: Basophils % (A) 0 %; Eosinophils # (A) 0.1 k/uL (0-0.7); Eosinophils % (A) 1 %; HCT 44.1 % (39.0-53.0); HGB 14.2 gm/dL (13.0-17.5); Lymphocytes # (A) 1.5 k/uL (1.0-4.8); Lymphocytes % (A) 14 %; MCH 29.9 pg (25.0-35.0); MCHC 32.1 g/dL (31.0-37.0); Monocytes # (A) 0.8 k/uL (0-1.0); Monocytes % (A) 8 %; Neutrophils # (A) 8.4 k/uL (1.3-7.7); Neutrophils % (A) 76 %; Platelet Count 170 k/uL (150-450); RBC 4.74 m/uL (4.30-5.90); RDW 15.8 % (11.5-15.5)
[2023-04-13 15:46] LABS: INR 0.9 (<1.2); Partial Thromboplastin Time 23.4 sec (22.0-30.0)
[2023-04-13 15:49] LABS: ALT 27 U/L (4-49); AST 20 U/L (17-59); African American GFR (CKD) >90 (>60 ml/min/1.73 sqM); Albumin 4.1 g/dL (3.5-5.0); Alkaline Phosphatase 83 U/L (38-126); Anion Gap 13 mmol/L; Blood Urea Nitrogen 17 mg/dL (9-20); Calcium 9.3 mg/dL (8.4-10.2); Carbon Dioxide 23 mmol/L (22-30); Chloride 104 mmol/L (98-107); Glucose 97 mg/dL (74-99); Non-African American GFR(CKD) 83 (>60 ml/min/1.73 sqM); Potassium 3.6 mmol/L (3.5-5.1); Sodium 140 mmol/L (137-145); Total Bilirubin 0.5 mg/dL (0.2-1.3)
--- NOTE | 2023-04-13 15:51 | XR ---
EXAMINATION TYPE: XR chest 2V DATE OF EXAM: 04/13/2023 COMPARISON: 05/09/2019 HISTORY: Shortness of breath TECHNIQUE: Frontal and lateral views of the chest are obtained. FINDINGS: There is mild cardiomegaly, mild pulmonary vascular congestion and interstitial edema. The findings a re most consistent with CHF There is no pleural effusion or pneumothorax. There are marked degenerative changes in the shoulders otherwise the osseous structures are intact IMPRESSION: Acute cardiopulmonary disease most consistent with CHF..
[2023-04-13 15:58] LABS: NT-Pro-B-Type Natriuretic Pept 437 pg/mL
[2023-04-13] MEDS ORDERED: IPRATROPIUM-ALBUTEROL 3 ML NEB INHALATION STA (16:06)
[2023-04-13] MEDS ORDERED: methylPREDNISolone SOD SUCCI 125 MG/2 ML VIAL IV STA (16:40)
[2023-04-13] MEDS ORDERED: NALOXONE 0.4 MG/ML 1 ML VIAL IV PRN (17:07)
[2023-04-13] MEDS ORDERED: ACETAMINOPHEN TAB 325 MG TAB PO PRN (17:07)
[2023-04-13] MEDS ORDERED: ONDANSETRON 4 MG/2 ML VIAL IVP PRN (17:07)
[2023-04-13] MEDS ORDERED: HYDROcodone/APAP 5-325MG 1 EACH TAB PO PRN (17:07)
[2023-04-13] MEDS ORDERED: ALBUTEROL HFA INHALER INHALATION PRN (17:15)
[2023-04-13] MEDS: SYMBICORT 160-4.5 MCG INHALER INHALATION SCH (20:24)
[2023-04-13] MEDS: IPRATROPIUM-ALBUTEROL 3 ML NEB INHALATION PRN (20:24)
--- NOTE | 2023-04-13 21:21 | P.CNPUL ---
History of Present Illness Consult date: 04/13/23 Requesting physician: Rolly E Marilee Reason for consult: COPD Chief complaint: Shortness of breath, cough and wheezing History of present illness: This is a 77-year-old white male with history of severe COPD, O2 dependent, prednisone dependent, maintained usually on 10 mg of prednisone. Patient is also on DuoNeb updrafts, albuterol, Symbicort, and recently placed on theophylline at 400 mg daily. Patient came in with a 3 days history of cough wheezing and shortness of breath, cough is productive with yellow phlegm, at times slightly blood-tinged, denies any fever, denies any chills, denies any chest pain. Chest x-ray in the ER showed slight prominence of the pulmonary vasculature, however on physical examination the patient does not have findings to suggest congestive heart failure and his BNP level was normal. Patient had no previous history of congestive heart failure. Patient was admitted, and this consult was initiated. Again the patient denies any major constitutional sym ptoms, it is not unusual for the patient to have acute exacerbation of COPD almost on a monthly basis. I usually see this patient on a regular basis in the office with similar symptoms and unfortunately the patient continues to smoke. Review of Systems CONSTITUTIONAL: Negative EYES: Negative EARS, NOSE, MOUTH, THROAT: Negative CARDIOVASCULAR: Negative RESPIRATORY: As noted in HPI mostly cough wheezing shortness of breath and blood-tinged sputum GASTROINTESTINAL: Negative GENITOURINARY: Negative MUSKULOSKELETAL: Negative INTEGUMENTARY: Negative NEUROLOGICAL: Negative PSYCHIATRIC: Patient does have generalized anxiety and insomnia. HEMATOLOGIC/LYMPHATIC: Negative Past Medical History Past Medical History: Chest Pain / Angina, COPD, Diabetes Mellitus, Hyperlipidemia, Myocardial Infarction ([place]), Osteoarthritis (OA), Pneumonia, Prostate Disorder, Supraventricular Tachycardia (SVT) Additional Past Medical History / Comment(s): Chronic hypoxic respiratory failure with home oxygen pt mostly just wears at night, past acute hypoxic respiratory failure requiring bipap, newly diagnosed NIDDM type II, BPH, UTI Last Myocardial Infarction Date:: 2008 History of Any Multi-Drug Resistant Organisms: None Reported Past Surgical History: Back Surgery, Heart Catheterization, Hernia Repair, Joint Replacement, Orthopedic Surgery Additional Past Surgical History / Comment(s): microlaryngoscopy w/ lt vocal cord bx-neg, bronch-lung bx-neg, lt inguinal hernia, low back surgery, bilateral total hip arthroplasties, bilateral cataracts removed. Past Anesthesia/Blood Transfusion Reactions: No Reported Reaction Past Psychological History: No Psychological Hx Reported Additional Psychological History / Comment(s): Pt lives in own home with his frank that has 3 steps into house has 1 cat, 1 dog. 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 Past heavy etoh use but quit heavy drinking 20 years ago now only drinks once or twice a week when he plays cards and less than 14 drinks/week. Past Drug Use History: None Reported - Past Family History Mother Family Medical History: COPD, Diabetes Mellitus Father Family Medical History: COPD, Diabetes Mellitus Brother(s) Family Medical History: Cancer Additional Family Medical History / Comment(s): leukemia Medications and Allergies Home Medications Medication Instructions Recorded Confirmed Type Aspirin 81 mg PO DAILY 07/17/16 04/13/23 History Atorvastatin [Lipitor] 20 mg PO DAILY 07/17/16 04/13/23 History Budesonide-Formot 160-4.5 Mcg 2 puff INHALATION RT-BID 07/17/16 04/13/23 History [Symbicort 160-4.5 Mcg Inhaler] Metoprolol Tartrate [Lopressor] 25 mg PO DAILY 07/23/18 04/13/23 History Ibuprofen [Motrin] 800 mg PO BID PRN 03/24/19 04/13/23 History Ipratropium-Albuterol Nebulize 3 ml INHALATION RT-Q4H 05/07/19 04/13/23 History [Duoneb 0.5 mg-3 mg/3 ml Soln] Albuterol Sulfate [Albuterol 2 puff PO RT-Q4H PRN 04/13/23 04/13/23 History Sulfate Hfa] Theophylline 24 Hour [Sonido-24] 400 mg PO DAILY 04/13/23 04/13/23 History predniSONE [Deltasone] 20 mg PO DAILY 04/13/23 04/13/23 History Allergies Allergy/AdvReac Type Severity Reaction Status Date / Time Penicillins Allergy Unknown Verified 04/13/23 16:11 Physical Exam Vitals: Vital Signs Temp Pulse Resp BP Pulse Ox 04/13/23 20:38 90 04/13/23 20:28 88 04/13/23 18:39 86 22 140/82 98 04/13/23 17:20 83 22 144/59 99 04/13/23 16:28 88 04/13/23 16:18 99 04/13/23 15:14 85 22 131/68 98 04/13/23 14:33 98.1 F 89 18 156/69 99 Intake and Output 04/13/23 04/13/23 04/13/23 06:59 14:59 22:59 Other: Weight 78.925 kg 78.925 kg Physical Exam: Revealed 77-year-old white male in no distress, on 4 L nasal can nula Head: Atraumatic, normocephalic HEENT:[Neck is supple.] [No neck masses.] [No thyromegaly.] [No JVD.] Chest: [Diminished breath sound bilaterally minimal wheezing on forced expiratory maneuver.] Cardiac Exam: [Normal S1 and S2, no S3 gallop, no murmur.] Abdomen: [Soft, nontender, no megaly, no rebound, no guarding, normal bowel sounds.] Extremities: [No clubbing, no edema, no cyanosis.] Neurological Exam: [No focal neurologic deficit.] Alert oriented 3 Psychiatric: Normal mood, affect and normal mental status examination. Skin: No rashes Results - Laboratory Findings CBC and BMP: 04/13/23 15:21 04/13/23 15:21 PT/INR, D-dimer PT 10.0 sec (10.0-12.5) 04/13/23 15:21 INR 0.9 (<1.2) 04/13/23 15:21 Abnormal lab findings: Abnormal Labs 04/13/23 04/13/23 15:21 15:21 WBC 11.0 H RDW 15.8 H Neutrophils # 8.4 H C-Reactive Protein 3.3 H - Diagnostic Findings Chest x-ray: image reviewed (Chest x-ray as noted in HPI, no clear-cut evidence of pneumonia and no clear-cut evidence of congestive heart failure) Assessment and Plan Assessment: Impression: Acute exacerbation of COPD, patient is known to have history of stage III COPD, FEV1 is normal in the range of 46% Acute on chronic hypoxic respiratory failure patient is normally on home O2 at 3 L/m Tobacco dependence syndrome Previous history of SVT Dyslipidemia Degenerative joint disease Generalized anxiety disorder Insomnia Recommendation: Continue present course of treatment including Solu-Medrol, antibiotics, bronchodilators, including DuoNeb and Symbicort Continue usual dose of theophylline which is 400 mg daily Will give the patient 1 dose of Lasix today 20 mg daily, again I strongly doubt congestive heart failure based on the chest x-ray findings, clinical findings, and the relatively normal BNP. Patient will be given Xanax for insomnia to help him sleep tonight. Continue oxygen GI and DVT prophylaxis We will continue to fall Time with Patient: Greater than 30
[2023-04-13] MEDS ORDERED: ALPRAZolam 0.25 MG TAB PO STA (21:22)
[2023-04-13] MEDS ORDERED: TEMAZEPAM 7.5 MG CAP PO PRN (21:24)
[2023-04-13] MEDS: HEPARIN SODIUM,PORCINE 5,000 UNIT/ML 1 ML VIAL SQ SCH (21:38)
[2023-04-13] MEDS: FAMOTIDINE 20 MG/2 ML VIAL IV SCH (21:40)
[2023-04-14] MEDS: IPRATROPIUM-ALBUTEROL 3 ML NEB INHALATION PRN ×6 (01:39→20:58)
[2023-04-14 05:28] LABS: Glucose,Whole Blood 155 mg/dL (70-110)
[2023-04-14] MEDS: ASPIRIN 81 MG PO SCH (08:52)
[2023-04-14] MEDS: ATORVASTATIN 20 MG TAB PO SCH (08:52)
[2023-04-14] MEDS: FAMOTIDINE 20 MG/2 ML VIAL IV SCH ×2 (08:52→20:45)
[2023-04-14] MEDS: METOPROLOL TARTRATE 25 MG TAB PO SCH (08:52)
[2023-04-14] MEDS: HEPARIN SODIUM,PORCINE 5,000 UNIT/ML 1 ML VIAL SQ SCH ×2 (08:52→08:53)
[2023-04-14] MEDS: THEOPHYLLINE 24 HOUR 400 MG CAP.ER.24H PO SCH (08:53)
[2023-04-14 08:59] LABS: Basophils # (A) 0.01 X 10*3/uL (0.00-0.10); Basophils % (A) 0.1 %; Eosinophils # (A) 0 X 10*3/uL (0.04-0.35); Eosinophils % (A) 0 %; HCT 38.8 % (39.6-50.0); HGB 12.6 g/dL (13.0-17.0); Lymphocytes # (A) 0.44 X 10*3/uL (0.90-5.00); Lymphocytes % (A) 5.8 %; MCH 30.3 pg (27.0-32.0); MCHC 32.5 g/dL (32.0-37.0); MCV 93.3 FL (80.0-97.0); Mean Platelet Volume 11.9 FL (9.5-12.2); Monocytes # (A) 0.28 X 10*3/uL (0.20-1.00); Monocytes % (A) 3.7 %; NRBC Per 100 WBC 0 X 10*3/uL (0.00-0.01); Neutrophils # (A) 6.86 X 10*3/uL (1.80-7.70); Neutrophils % (A) 90.1 %; Platelet Count 218 X 10*3/uL (140-440); RBC 4.16 X 10*6/uL (4.40-5.60); RDW 15.8 % (11.5-14.5); WBC 7.61 X 10*3/uL (4.50-10.00)
[2023-04-14] MEDS: SYMBICORT 160-4.5 MCG INHALER INHALATION SCH ×2 (09:06→20:58)
[2023-04-14 09:30] LABS: BUN/Creat Ratio 19.33 Ratio (12.00-20.00); Blood Urea Nitrogen 17.4 mg/dL (9.0-27.0); Glucose 163 mg/dL (70-110)
[2023-04-14 09:31] LABS: Calcium 9.3 mg/dL (8.7-10.3); Carbon Dioxide 24.6 mmol/L (21.6-31.8); Chloride 105 mmol/L (96-109); Potassium 4.2 mmol/L (3.5-5.5); Sodium 139 mmol/L (135-145)
[2023-04-14] MEDS: AZITHROMYCIN 500 MG TAB PO SCH (10:57)
[2023-04-14 11:51] LABS: Glucose,Whole Blood 248 mg/dL (70-110)
--- NOTE | 2023-04-14 14:57 | P.PN ---
Subjective Progress Note Date: 04/14/23 This is a 77-year-old white male with history of severe COPD, O2 dependent, prednisone dependent, maintained usually on 10 mg of prednisone. Patient is also on DuoNeb updrafts, albuterol, Symbicort, and recently placed on theophylline at 400 mg daily. Patient came in with a 3 days history of cough wheezing and shortness of breath, cough is productive with yellow phlegm, at times slightly blood-tinged, denies any fever, denies any chills, denies any chest pain. Chest x-ray in the ER showed slight prominence of the pulmonary vasculature, however on physical examination the patient does not have findings to suggest congestive heart failure and his BNP level was normal. Patient had no previous history of congestive heart failure. Patient was admitted, and this consult was initiated. Again the patient denies any major constitutional symptoms, it is not unusual for the patient to have acute exacerbation of COPD almost on a monthly basis. I usually see this patient on a regular basis in the office with similar symptoms and unfortunately the patient continues to smoke. The patient is seen today 04/14/2023 in follow-up on the regular medical floor. He is currently sitting up at the bedside. Awake and alert in no acute distress. He is still somewhat dyspneic with conversation. Dyspneic with minimal activity. White count 7.6. Hemoglobin 12.6. Platelets 218. Sodium 139. Potassium 4.2. Bicarb 25. BUN 17. Creatinine 0.9. Glucose 163. He is continued on DuoNeb inhalations, Solu-Medrol, Symbicort, theophylline. Empiric antibiotics in the form of azithromycin. Lovenox for DVT prophylaxis. Objective - Vital Signs Vital signs: Vital Signs Temp 98.2 F 04/14/23 07:20 Pulse 76 04/14/23 12:26 Resp 18 04/14/23 07:20 BP 118/61 04/14/23 07:20 Pulse Ox 98 04/14/23 09:06 FiO2 Intake & Output 04/13/23 04/14/23 04/14/23 18:59 06:59 18:59 Output Total 250 Balance -250 Weight 78.925 kg 78.925 kg Output: Urine 250 Other: Voiding Method Urinal Urinal # Voids 1 - Exam GENERAL EXAM: Alert, pleasant 77-year-old gentleman sitting up in bed, on 3 L nasal cannula, comfortable in no apparent distress. HEAD: Normocephalic. EYES: Normal reaction of pupils, equal size. NOSE: Clear with pink turbinates. THROAT: No erythema or exudates. NECK: No masses, no JVD. CHEST: No chest wall deformity. LUNGS: Equal air entry with bilateral end expiratory wheeze, diminished. CVS: S1 and S2 normal with no audible murmur, regular rhythm. ABDOMEN: No hepatosplenomegaly, normal bowel sounds, no guarding or rigidity. SPINE: No scoliosis or deformity SKIN: No rashes CENTRAL NERVOUS SYSTEM: No focal deficits, tone is normal in all 4 extremities. EXTREMITIES: There is no peripheral edema. No clubbing, no cyanosis. Pe ripheral pulses are intact. - Labs CBC & Chem 7: 04/14/23 04:39 04/14/23 04:39 Labs: Abnormal Lab Results - Last 24 Hours (Table) 04/13/23 04/13/23 04/14/23 Range/Units 15:21 15:21 04:39 WBC 11.0 H (3.8-10.6) k/uL RBC 4.16 L (4.40-5.60) X 10*6/uL Hgb 12.6 L (13.0-17.0) g/dL Hct 38.8 L (39.6-50.0) % RDW 15.8 H 15.8 H (11.5-15.5) % Neutrophils # 8.4 H (1.3-7.7) k/uL Lymphocytes # 0.44 L (0.90-5.00) X 10*3/uL Eosinophils # 0 L (0.04-0.35) X 10*3/uL Glucose (70-110) mg/dL POC Glucose (mg/dL) (70-110) mg/dL C-Reactive Protein 3.3 H (<1.0) mg/dL 04/14/23 04/14/23 04/14/23 Range/Units 04:39 05:27 11:49 WBC (3.8-10.6) k/uL RBC (4.40-5.60) X 10*6/uL Hgb (13.0-17.0) g/dL Hct (39.6-50.0) % RDW (11.5-15.5) % Neutrophils # (1.3-7.7) k/uL Lymphocytes # (0.90-5.00) X 10*3/uL Eosinophils # (0.04-0.35) X 10*3/uL Glucose 163 H (70-110) mg/dL POC Glucose (mg/dL) 155 H 248 H (70-110) mg/dL C-Reactive Protein (<1.0) mg/dL Assessment and Plan Assessment: Acute exacerbation of COPD, patient is known to have history of stage III COPD, FEV1 is normal in the range of 46% Acute on chronic hypoxic respiratory failure patient is normally on home O2 at 3 L/m Tobacco dependence syndrome Previous history of SVT Dyslipidemia Degenerative joint disease Generalized anxiety disorder Insomnia Plan: The patient was seen and evaluated Labs and medications reviewed Continue the current treatment plan Titrate the FiO2 as tolerated Increase his activity as tolerated We will continue to follow I have personally seen and examined the patient, performed the documentation and the assessment and plan as written. Number of minutes spent on the visit: 10.
--- NOTE | 2023-04-14 15:44 | P.HPIM ---
History of Present Illness 77-year-old male came in with complains of shortness of breath is admitted for COPD exacerbation patient is usually uses 3 L of oxygen patient was comparing of cough with [place] sputum production patient has significant wheezing on exam is also on prednisone at home which she takes an daily basis. Patient is on theophylline as well. Patient denied any history of time start failure BNP is not elevated chest x-ray is not consistent with CHF and patient is trying to quit which she did after his last discharge was started smoking again. REVIEW OF SYSTEMS: CONSTITUTIONAL: No fever, no malaise, no fatigue. HEENT: No recent visual problems or hearing problems. Denied any sore throat. CARDIOVASCULAR: No chest pain, orthopnea, PND, no palpitations, no syncope. PULMONARY: no hemoptysis. GASTROINTESTINAL: No diarrhea, no nausea, no vomiting, no abdominal pain. NEUROLOGICAL: No headaches, no weakness, no numbness. HEMATOLOGICAL: Denies any bleeding or petechiae. GENITOURINARY: Denies any burning micturition, frequency, or urgency. MUSCULOSKELETAL/RHEUMATOLOGICAL: Denies any joint pain, swelling, or any muscle pain. ENDOCRINE: Denies any polyuria or polydipsia. The rest of the 14-point review of systems is negative. PHYSICAL EXAMINATION: GENERAL: The patient is alert and oriented x3, not in any acute distress. Well developed, well nourished. HEENT: Pupils are round and equally reacting to light. EOMI. No scleral icterus. No conjunctival pallor. Normocephalic, atraumatic. No pharyngeal erythema. No thyromegaly. CARDIOVASCULAR: S1 and S2 present. No murmurs, rubs, or gallops. PULMONARY: Expiratory wheezing on exam. ABDOMEN: Soft, nontender, nondistended, normoactive bowel sounds. No palpable organomegaly. MUSCULOSKELETAL: No joint swelling or deformity. EXTREMITIES: No cyanosis, clubbing, or pedal edema. NEUROLOGICAL: Gross neurological examination did not reveal any focal deficits. SKIN: No rashes. Assessment and plan -Acute on chronic hypoxic and hypercapnic respiratory failure secondary to COPD exacerbation continue with systemic steroids inhalational treatments there is no evidence of pneumonia at this time -2 diabetes mellitus: Patient will be started on high-dose sliding scale. Patient is usually not on any medications but patient is hypoglycemic usually whenever he is on steroids -Coronary artery disease -Dyslipidemia -Benign prostatic hypertrophy -History of SVT in the past -For above-mentioned chronic medical problems patient will be resumed on appropriate home medications DVT prophylaxis: Lovenox GI prophylaxis Pepcid Past Medical History Past Medical History: Chest Pain / Angina, COPD, Diabetes Mellitus, Hyperlipide alberto, Myocardial Infarction ([place]), Osteoarthritis (OA), Pneumonia, Prostate Disorder, Supraventricular Tachycardia (SVT) Additional Past Medical History / Comment(s): Chronic hypoxic respiratory failure with home oxygen pt mostly just wears at night, past acute hypoxic respiratory failure requiring bipap, newly diagnosed NIDDM type II, BPH, UTI Last Myocardial Infarction Date:: 2008 History of Any Multi-Drug Resistant Organisms: None Reported Past Surgical History: Back Surgery, Heart Catheterization, Hernia Repair, Joint Replacement, Orthopedic Surgery Additional Past Surgical History / Comment(s): microlaryngoscopy w/ lt vocal cord bx-neg, bronch-lung bx-neg, lt inguinal hernia, low back surgery, bilateral total hip arthroplasties, bilateral cataracts removed. Past Anesthesia/Blood Transfusion Reactions: No Reported Reaction Past Psychological History: No Psychological Hx Reported Additional Psychological History / Comment(s): Pt lives in own home with his frank that has 3 steps into house has 1 cat, 1 dog. 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 Past heavy etoh use but quit heavy drinking 20 years ago now only drinks once or twice a week when he plays cards and less than 14 drinks/week. Past Drug Use History: None Reported - Past Family History Mother Family Medical History: COPD, Diabetes Mellitus Father Family Medical History: COPD, Diabetes Mellitus Brother(s) Family Medical History: Cancer Additional Family Medical History / Comment(s): leukemia Medications and Allergies Home Medications Medication Instructions Recorded Confirmed Type Aspirin 81 mg PO DAILY 07/17/16 04/13/23 History Atorvastatin [Lipitor] 20 mg PO DAILY 07/17/16 04/13/23 History Budesonide-Formot 160-4.5 Mcg 2 puff INHALATION RT-BID 07/17/16 04/13/23 History [Symbicort 160-4.5 Mcg Inhaler] Metoprolol Tartrate [Lopressor] 25 mg PO DAILY 07/23/18 04/13/23 History Ibuprofen [Motrin] 800 mg PO BID PRN 03/24/19 04/13/23 History Ipratropium-Albuterol Nebulize 3 ml INHALATION RT-Q4H 05/07/19 04/13/23 History [Duoneb 0.5 mg-3 mg/3 ml Soln] Albuterol Sulfate [Albuterol 2 puff PO RT-Q4H PRN 04/13/23 04/13/23 History Sulfate Hfa] Theophylline 24 Hour [Sonido-24] 400 mg PO DAILY 04/13/23 04/13/23 History predniSONE [Deltasone] 20 mg PO DAILY 04/13/23 04/13/23 History Allergies Allergy/AdvReac Type Severity Reaction Status Date / Time Penicillins Allergy Unknown Verified 04/13/23 16:11 Physical Exam Vitals: Vital Signs Temp Pulse Pulse Pulse Resp BP BP 04/14/23 15:40 76 04/14/23 15:29 73 04/14/23 12:26 76 04/14/23 12:17 80 04/14/23 09:19 84 04/14/23 09:06 88 04/14/23 07:20 98.2 F 79 18 118/61 04/14/23 01:52 88 04/14/23 01:40 92 04/14/23 01:00 98.6 F 73 18 146/69 04/13/23 20:38 90 04/13/23 20:28 88 04/13/23 19:00 98.4 F 73 18 147/64 04/13/23 18:39 86 22 140/82 04/13/23 17:20 83 22 144/59 04/13/23 16:28 88 04/13/23 16:18 99 Pulse Ox 04/14/23 15:40 04/14/23 15:29 04/14/23 12:26 04/14/23 12:17 04/14/23 09:19 04/14/23 09:06 98 04/14/23 07:20 98 04/14/23 01:52 04/14/23 01:40 04/14/23 01:00 99 04/13/23 20:38 04/13/23 20:28 04/13/23 19:00 99 04/13/23 18:39 98 04/13/23 17:20 99 04/13/23 16:28 04/13/23 16:18 Intake and Output 04/14/23 04/14/23 04/14/23 06:59 14:59 22:59 Output Total 250 Balance -250 Output: Urine 250 Other: Voiding Method Urinal # Voids 1 Results CBC & Chem 7: 04/14/23 04:39 04/14/23 04:39 Labs: Abnormal Lab Results - Last 24 Hours (Table) 04/13/23 04/14/23 04/14/23 Range/Units 15:21 04:39 04:39 RBC 4.16 L (4.40-5.60) X 10*6/uL Hgb 12.6 L (13.0-17.0) g/dL Hct 38.8 L (39.6-50.0) % RDW 15.8 H (11.5-14.5) % Lymphocytes # 0.44 L (0.90-5.00) X 10*3/uL Eosinophils # 0 L (0.04-0.35) X 10*3/uL Glucose 163 H (70-110) mg/dL POC Glucose (mg/dL) (70-110) mg/dL C-Reactive Protein 3.3 H (<1.0) mg/dL 04/14/23 04/14/23 Range/Units 05:27 11:49 RBC (4.40-5.60) X 10*6/uL Hgb (13.0-17.0) g/dL Hct (39.6-50.0) % RDW (11.5-14.5) % Lymphocytes # (0.90-5.00) X 10*3/uL Eosinophils # (0.04-0.35) X 10*3/uL Glucose (70-110) mg/dL POC Glucose (mg/dL) 155 H 248 H (70-110) mg/dL C-Reactive Protein (<1.0) mg/dL Thrombosis Risk Factor Assmnt - Choose All That Apply Any of the Below Risk Factors Present?: Yes Each Factor Represents 1 point: Abnormal pulmonary function (COPD) Each Risk Factor Represents 3 Points: Age 75 years or older Thrombosis Risk Factor Assessment Total Risk Factor Score: 4 Thrombosis Risk Factor Assessment Level: Moderate Risk
[2023-04-14] MEDS: ENOXAPARIN 40 MG/0.4 ML SYRINGE SQ SCH (15:45)
[2023-04-14 16:31] LABS: Glucose,Whole Blood 186 mg/dL (70-110)
[2023-04-14] MEDS: methylPREDNISolone SOD SUCCI 125 MG/2 ML VIAL IV SCH ×2 (16:49→23:23)
[2023-04-14] MEDS: INSULIN ASPART (NovoLOG) 100 UNIT/ML VIAL SQ SCH ×2 (16:49→20:46)
[2023-04-14 20:16] LABS: Glucose,Whole Blood 197 mg/dL (70-110)
[2023-04-15] MEDS: IPRATROPIUM-ALBUTEROL 3 ML NEB INHALATION PRN ×4 (00:43→21:37)
[2023-04-15] MEDS: IBUPROFEN 800 MG TAB PO PRN ×2 (00:59→23:31)
[2023-04-15 06:35] LABS: Glucose,Whole Blood 238 mg/dL (70-110)
[2023-04-15] MEDS: methylPREDNISolone SOD SUCCI 125 MG/2 ML VIAL IV SCH ×4 (06:50→23:26)
[2023-04-15] MEDS: INSULIN ASPART (NovoLOG) 100 UNIT/ML VIAL SQ SCH ×4 (06:50→21:11)
[2023-04-15] MEDS: SYMBICORT 160-4.5 MCG INHALER INHALATION SCH ×2 (08:37→21:37)
[2023-04-15] MEDS: AZITHROMYCIN 500 MG TAB PO SCH (08:51)
[2023-04-15] MEDS: ATORVASTATIN 20 MG TAB PO SCH (08:51)
[2023-04-15] MEDS: FAMOTIDINE 20 MG/2 ML VIAL IV SCH ×2 (08:51→20:23)
[2023-04-15] MEDS: METOPROLOL TARTRATE 25 MG TAB PO SCH (08:51)
[2023-04-15] MEDS: ASPIRIN 81 MG PO SCH (08:51)
[2023-04-15] MEDS: THEOPHYLLINE 24 HOUR 400 MG CAP.ER.24H PO SCH (08:51)
[2023-04-15] MEDS: ENOXAPARIN 40 MG/0.4 ML SYRINGE SQ SCH (08:51)
[2023-04-15 10:46] LABS: Glucose,Whole Blood 200 mg/dL (70-110)
--- NOTE | 2023-04-15 13:33 | P.PN ---
Subjective Progress Note Date: 04/15/23 This is a 77-year-old white male with history of severe COPD, O2 dependent, prednisone dependent, maintained usually on 10 mg of prednisone. Patient is also on DuoNeb updrafts, albuterol, Symbicort, and recently placed on theophylline at 400 mg daily. Patient came in with a 3 days history of cough wheezing and shortness of breath, cough is productive with yellow phlegm, at times slightly blood-tinged, denies any fever, denies any chills, denies any chest pain. Chest x-ray in the ER showed slight prominence of the pulmonary vasculature, however on physical examination the patient does not have findings to suggest congestive heart failure and his BNP level was normal. Patient had no previous history of congestive heart failure. Patient was admitted, and this consult was initiated. Again the patient denies any major constitutional symptoms, it is not unusual for the patient to have acute exacerbation of COPD almost on a monthly basis. I usually see this patient on a regular basis in the office with similar symptoms and unfortunately the patient continues to smoke. The patient is seen today 04/14/2023 in follow-up on the regular medical floor. He is currently sitting up at the bedside. Awake and alert in no acute distress. He is still somewhat dyspneic with conversation. Dyspneic with minimal activity. White count 7.6. Hemoglobin 12.6. Platelets 218. Sodium 139. Potassium 4.2. Bicarb 25. BUN 17. Creatinine 0.9. Glucose 163. He is continued on DuoNeb inhalations, Solu-Medrol, Symbicort, theophylline. Empiric antibiotics in the form of azithromycin. Lovenox for DVT prophylaxis. The patient is seen today 04/15/2023 in follow-up on the regular medical floor. He is currently sitting up in bed. Awake and alert in no acute distress. Continues to maintain good O2 saturations in the 90s on 3 L/m per nasal cannula. He is still congested. Loose cough. However better today compared to yesterday. Not quite back to his baseline. He is continued on DuoNeb in halations, Symbicort, Solu-Medrol. Antibiotics in the form of azithromycin. Lovenox for DVT prophylaxis. Sputum is showing a Pseudomonas species. Glucose 200. Objective - Vital Signs Vital signs: Vital Signs Temp 97.8 F 04/15/23 06:51 Pulse 72 04/15/23 08:46 Resp 18 04/15/23 08:46 BP 156/64 04/15/23 06:51 Pulse Ox 96 04/15/23 08:38 FiO2 Intake & Output 04/14/23 04/15/23 04/15/23 18:59 06:59 18:59 Output Total 250 Balance -250 Output: Urine 250 Other: Voiding Method Urinal Urinal # Voids 3 2 - Exam GENERAL EXAM: Alert, 77-year-old gentleman, on 3 L nasal cannula, in no apparent distress. HEAD: Normocephalic. EYES: Normal reaction of pupils, equal size. NOSE: Clear with pink turbinates. THROAT: No erythema or exudates. NECK: No masses, no JVD. CHEST: No chest wall deformity. LUNGS: Equal air entry with bilateral end expiratory wheeze, diminished. CVS: S1 and S2 normal with no audible murmur, regular rhythm. ABDOMEN: No hepatosplenomegaly, normal bowel sounds, no guarding or rigidity. SPINE: No scoliosis or deformity SKIN: No rashes CENTRAL NERVOUS SYSTEM: No focal deficits, tone is normal in all 4 extremities. EXTREMITIES: There is no peripheral edema. No clubbing, no cyanosis. Peripheral pulses are intact. - Labs CBC & Chem 7: 04/14/23 04:39 04/14/23 04:39 Labs: Abnormal Lab Results - Last 24 Hours (Table) 04/14/23 04/14/23 04/15/23 Range/Units 16:29 20:15 06:33 POC Glucose (mg/dL) 186 H 197 H 238 H (70-110) mg/dL 04/15/23 Range/Units 10:45 POC Glucose (mg/dL) 200 H (70-110) mg/dL Microbiology - Last 24 Hours (Table) 04/13/23 16:31 Gram Stain - Preliminary Sputum Sputum Culture - Preliminary Pseudomonas spec Assessment and Plan Assessment: Acute exacerbation of COPD, patient is known to have history of stage III COPD, FEV1 is normal in the range of 46%. Sputum is showing a Pseudomonas species Acute on chronic hypoxic respiratory failure patient is normally on home O2 at 3 L/m Tobacco dependence syndrome Previous history of SVT Dyslipidemia Degenerative joint disease Generalized anxiety disorder Insomnia Plan: The patient was seen and evaluated Labs and medications reviewed Sputum culture showing a Pseudomonas species Discontinue azithromycin Initiate cefepime Titrate the FiO2 as tolerated Increase his activity as tolerated We will continue to follow I have personally seen and examined the patient, performed the documentation and the assessment and plan as written. Number of minutes spent on the visit: 10.
[2023-04-15 16:23] LABS: Glucose,Whole Blood 282 mg/dL (70-110)
[2023-04-15] MEDS: CEFEPIME 1 GM in SODIUM CHLORIDE 0.9% 50 ML IVPB SCH (20:23)
--- NOTE | 2023-04-15 20:31 | P.PN ---
Subjective Progress Note Date: 04/15/23 77-year-old male came in with complains of shortness of breath is admitted for COPD exacerbation patient is usually uses 3 L of oxygen patient was comparing of cough with green sputum production patient has significant wheezing on exam is also on prednisone at home which he takes an daily basis. Patient is on theophylline as well. Patient denied any history of time start failure BNP is not elevated chest x-ray is not consistent with CHF and patient is trying to quit which she did after his last discharge was started smoking again. 04/15/2023 Patient is seen in follow-up today being followed by pulmonary maintained on breathing inhalational treatments along with IV steroids for COPD exacerbation. Patient continues to have thick copious amounts of green sputum production being expectorated and has been started on antibiotics per pulmonary. Pro-calcitonin was within normal limits. Sputum culture obtained and pending at this time. Patient is an extensive smoker and discussed with him about quitting. Patient reports he has tried to quit multiple times and most recently quit for 35 days. Patient is currently afebrile and denies significant shortness of breath. Patient reports currently has oxygen at home at night and has been maintained on 3 L while here. Continue to wean as tolerated. Patient has been encouraged to increase activity as tolerated Review of systems: Constitutional: No reports of fatigue, fever, or chills Cardiovascular: No reports of chest pain or palpitations Respiratory: reports of continued shortness of breath with cough and sputum production GI: No reports of nausea, vomiting, or diarrhea : No reports of dysuria or retention Neurovascular: No reports of weakness or numbness All medications have been reviewed The rest of the 14-point review of systems is negative. PHYSICAL EXAMINATION: GENERAL: The patient is alert and oriented x3, not in any acute distress. Well developed, well nourished. HEENT: Pupils are round and equally reacting to light. EOMI. No scleral icterus. No conjunctival pallor. Normocephalic, atraumatic. No pharyngeal erythema. No thyromegaly. CARDIOVASCULAR: S1 and S2 present. No murmurs, rubs, or gallops. PULMONARY: Diminished breath sounds bilaterally with coarse scattered rhonchi and Expiratory wheezing on exam. ABDOMEN: Soft, nontender, nondistended, normoactive bowel sounds. No palpable organomegaly. MUSCULOSKELETAL: No joint swelling or deformity. EXTREMITIES: No cyanosis, clubbing, or pedal edema. NEUROLOGICAL: Gross neurological examination did not reveal any focal deficits. SKIN: No rashes. Assessment and plan: -Acute on chronic hypoxic and hypercapnic respiratory failure secondary to COPD exacerbation,, continue with systemic steroids inhalational treatments there is no evidence of pneumonia at this time, concerns for possible acute tracheobronchitis patient has copious amounts of sputum and sputum culture obtained preliminary showing Pseudomonas and was initially on Zithromax and has been started on cefepime per pulmonary. Will consult infectious disease and appreciate input recommendations on antibiotics -Type 2 diabetes mellitus: Patient will be continued on high-dose sliding scale with Accu-Cheks before meals and at bedtime. -Hyperglycemia, likely steroid effect -Coronary artery disease history -Dyslipidemia -Benign prostatic hypertrophy -History of SVT in the past -Continued ongoing nicotine dependence -GI prophylaxis -DVT prophylaxis -Full code The impression and plan of care has been dictated by Rachel Crawford, Nurse Practitioner as directed. Dr. Brayan MD I have performed a history and examination and MDM of this patient, discussed the same with the dictator, and agree with the dictator's assessment and plan as written ,documented as a scribe. Based on total visit time, I have performed more than 50% of the visit. Objective - Vital Signs Vital signs: Vital Signs Temp 97.7 F 04/15/23 13:20 Pulse 59 L 04/15/23 13:20 Resp 19 04/15/23 13:20 BP 160/66 04/15/23 13:20 Pulse Ox 98 04/15/23 13:20 FiO2 Intake & Output 04/15/23 04/15/23 04/16/23 06:59 18:59 06:59 Other: Voiding Method Urinal # Voids 2 - Labs CBC & Chem 7: 04/14/23 04:39 04/14/23 04:39 Labs: Abnormal Lab Results - Last 24 Hours (Table) 04/15/23 04/15/23 04/15/23 Range/Units 06:33 10:45 16:21 POC Glucose (mg/dL) 238 H 200 H 282 H (70-110) mg/dL Microbiology - Last 24 Hours (Table) 04/13/23 16:31 Gram Stain - Preliminary Sputum Sputum Culture - Preliminary Pseudomonas spec
[2023-04-15 21:12] LABS: Glucose,Whole Blood 313 mg/dL (70-110)
[2023-04-16] MEDS: methylPREDNISolone SOD SUCCI 125 MG/2 ML VIAL IV SCH ×3 (05:43→17:33)
[2023-04-16 06:14] LABS: Glucose,Whole Blood 187 mg/dL (70-110)
[2023-04-16] MEDS: INSULIN ASPART (NovoLOG) 100 UNIT/ML VIAL SQ SCH ×4 (06:39→21:59)
[2023-04-16 08:32] LABS: HGB 11.6 g/dL (13.0-17.0); MCH 29.6 pg (27.0-32.0); MCHC 32.2 g/dL (32.0-37.0); MCV 91.8 FL (80.0-97.0); Mean Platelet Volume 11.7 FL (9.5-12.2); NRBC Per 100 WBC 0 X 10*3/uL (0.00-0.01); Platelet Count 215 X 10*3/uL (140-440); RBC 3.92 X 10*6/uL (4.40-5.60); RDW 15.6 % (11.5-14.5); WBC 12.01 X 10*3/uL (4.50-10.00)
[2023-04-16 08:33] LABS: Basophils # (A) 0.01 X 10*3/uL (0.00-0.10); Basophils % (A) 0.1 %; Eosinophils # (A) 0 X 10*3/uL (0.04-0.35); Eosinophils % (A) 0 %; Lymphocytes # (A) 0.65 X 10*3/uL (0.90-5.00); Lymphocytes % (A) 5.4 %; Monocytes # (A) 0.35 X 10*3/uL (0.20-1.00); Monocytes % (A) 2.9 %; Neutrophils # (A) 10.93 X 10*3/uL (1.80-7.70)
[2023-04-16 08:59] LABS: BUN/Creat Ratio 22.17 Ratio (12.00-20.00); Blood Urea Nitrogen 26.6 mg/dL (9.0-27.0); Calcium 9.2 mg/dL (8.7-10.3); Carbon Dioxide 23.7 mmol/L (21.6-31.8); Chloride 104 mmol/L (96-109); Glucose 217 mg/dL (70-110); Magnesium 2.1 mg/dL (1.5-2.4); Potassium 4.4 mmol/L (3.5-5.5); Sodium 139 mmol/L (135-145)
[2023-04-16] MEDS: ASPIRIN 81 MG PO SCH (09:21)
[2023-04-16] MEDS: CEFEPIME 1 GM in SODIUM CHLORIDE 0.9% 50 ML IVPB SCH (09:21)
[2023-04-16] MEDS: METOPROLOL TARTRATE 25 MG TAB PO SCH (09:21)
[2023-04-16] MEDS: AZITHROMYCIN 500 MG TAB PO SCH (09:21)
[2023-04-16] MEDS: ATORVASTATIN 20 MG TAB PO SCH (09:21)
[2023-04-16] MEDS: THEOPHYLLINE 24 HOUR 400 MG CAP.ER.24H PO SCH (09:21)
[2023-04-16] MEDS: FAMOTIDINE 20 MG/2 ML VIAL IV SCH ×2 (09:21→21:59)
[2023-04-16] MEDS: ENOXAPARIN 40 MG/0.4 ML SYRINGE SQ SCH (09:22)
[2023-04-16] MEDS: IPRATROPIUM-ALBUTEROL 3 ML NEB INHALATION SCH ×4 (09:26→19:56)
[2023-04-16] MEDS: SYMBICORT 160-4.5 MCG INHALER INHALATION SCH (09:30)
[2023-04-16 10:48] LABS: Glucose,Whole Blood 237 mg/dL (70-110)
--- NOTE | 2023-04-16 12:45 | P.PN ---
Subjective Progress Note Date: 04/16/23 This is a 77-year-old white male with history of severe COPD, O2 dependent, prednisone dependent, maintained usually on 10 mg of prednisone. Patient is also on DuoNeb updrafts, albuterol, Symbicort, and recently placed on theophylline at 400 mg daily. Patient came in with a 3 days history of cough wheezing and shortness of breath, cough is productive with yellow phlegm, at times slightly blood-tinged, denies any fever, denies any chills, denies any chest pain. Chest x-ray in the ER showed slight prominence of the pulmonary vasculature, however on physical examination the patient does not have findings to suggest congestive heart failure and his BNP level was normal. Patient had no previous history of congestive heart failure. Patient was admitted, and this consult was initiated. Again the patient denies any major constitutional symptoms, it is not unusual for the patient to have acute exacerbation of COPD almost on a monthly basis. I usually see this patient on a regular basis in the office with similar symptoms and unfortunately the patient continues to smoke. The patient is seen today 04/14/2023 in follow-up on the regular medical floor. He is currently sitting up at the bedside. Awake and alert in no acute distress. He is still somewhat dyspneic with conversation. Dyspneic with minimal activity. White count 7.6. Hemoglobin 12.6. Platelets 218. Sodium 139. Potassium 4.2. Bicarb 25. BUN 17. Creatinine 0.9. Glucose 163. He is continued on DuoNeb inhalations, Solu-Medrol, Symbicort, theophylline. Empiric antibiotics in the form of azithromycin. Lovenox for DVT prophylaxis. The patient is seen today 04/15/2023 in follow-up on the regular medical floor. He is currently sitting up in bed. Awake and alert in no acute distress. Continues to maintain good O2 saturations in the 90s on 3 L/m per nasal cannula. He is still congested. Loose cough. However better today compared to yesterday. Not quite back to his baseline. He is continued on DuoNeb in halations, Symbicort, Solu-Medrol. Antibiotics in the form of azithromycin. Lovenox for DVT prophylaxis. Sputum is showing a Pseudomonas species. Glucose 200. The patient is seen today 04/16/2023 in follow-up on the regular medical floor. He is currently sitting up at the bedside. Awake and alert in no acute distress. He is still dyspneic with minimal exertion. He is still requiring oxygen at liters per minute per nasal cannula. Urine culture is positive for pseudomonas aeruginosa. White count 12.0. Hemoglobin 11.6. Platelets 2:15. Sodium 139. Potassium 4.4. Bicarb 24. BUN 27. Creatinine 1.2. Glucose 217. He is continued on DuoNeb inhalations, Pulmicort and Perforomist inhalations, Solu-Medrol and theophylline. Antibiotics in the form of cefepime. Lovenox for DVT prophylaxis. Objective - Vital Signs Vital signs: Vital Signs Temp 97.6 F 04/16/23 06:51 Pulse 90 04/16/23 11:41 Resp 18 04/16/23 11:41 BP 149/61 04/16/23 06:51 Pulse Ox 96 04/16/23 09:28 FiO2 Intake & Output 04/15/23 04/16/23 04/16/23 18:59 06:59 18:59 Output Total 1200 Balance -1200 Output: Urine 1200 Other: Voiding Method Urinal # Bowel Movements 0 - Exam GENERAL EXAM: Alert, pleasant 77-year-old gentleman, sitting up at the bedside, on 3 L nasal cannula, in no apparent distress. HEAD: Normocephalic. EYES: Normal reaction of pupils, equal size. NOSE: Clear with pink turbinates. THROAT: No erythema or exudates. NECK: No masses, no JVD. CHEST: No chest wall deformity. LUNGS: Equal air entry with bilateral end expiratory wheeze, diminished. CVS: S1 and S2 normal with no audible murmur, regular rhythm. ABDOMEN: No hepatosplenomegaly, normal bowel sounds, no guarding or rigidity. SPINE: No scoliosis or deformity SKIN: No rashes CENTRAL NERVOUS SYSTEM: No focal deficits, tone is normal in all 4 extremities. EXTREMITIES: There is no peripheral edema. No clubbing, no cyanosis. Peripheral pulses are intact. - Labs CBC & Chem 7: 04/16/23 04:28 04/16/23 04:28 Labs: Abnormal Lab Results - Last 24 Hours (Table) 04/15/23 04/15/23 04/16/23 Range/Units 16:21 20:56 04:28 WBC 12.01 H (4.50-10.00) X 10*3/uL RBC 3.92 L (4.40-5.60) X 10*6/uL Hgb 11.6 L (13.0-17.0) g/dL Hct 36.0 L (39.6-50.0) % RDW 15.6 H (11.5-14.5) % Immature Gran # 0.07 H (0.00-0.04) X 10*3/uL Neutrophils # 10.93 H (1.80-7.70) X 10*3/uL Lymphocytes # 0.65 L (0.90-5.00) X 10*3/uL Eosinophils # 0 L (0.04-0.35) X 10*3/uL BUN/Creatinine Ratio (12.00-20.00) Ratio Glucose (70-110) mg/dL POC Glucose (mg/dL) 282 H 313 H (70-110) mg/dL 04/16/23 04/16/23 04/16/23 Range/Units 04:28 06:12 10:46 WBC (4.50-10.00) X 10*3/uL RBC (4.40-5.60) X 10*6/uL Hgb (13.0-17.0) g/dL Hct (39.6-50.0) % RDW (11.5-14.5) % Immature Gran # (0.00-0.04) X 10*3/uL Neutrophils # (1.80-7.70) X 10*3/uL Lymphocytes # (0.90-5.00) X 10*3/uL Eosinophils # (0.04-0.35) X 10*3/uL BUN/Creatinine Ratio 22.17 H (12.00-20.00) Ratio Glucose 217 H (70-110) mg/dL POC Glucose (mg/dL) 187 H 237 H (70-110) mg/dL Microbiology - Last 24 Hours (Table) 04/13/23 16:31 Gram Stain - Final Sputum Sputum Culture - Final Pseudomonas aeruginosa Assessment and Plan Assessment: Acute exacerbation of COPD, patient is known to have history of stage III COPD, FEV1 is normal in the range of 46%. Sputum is positive for Pseudomonas aeruginosa and currently on cefepime Acute on chronic hypoxic respiratory failure patient is normally on home O2 at 3 L/m Tobacco dependence syndrome Previous history of SVT Dyslipidemia Degenerative joint disease Generalized anxiety disorder Insomnia Plan: The patient was seen and evaluated Labs and medications reviewed Sputum culture positive for Pseudomonas aeruginosa Continue cefepime Remains on bronchodilators, steroids Titrate the FiO2 as tolerated Increase his activity as tolerated We will continue to follow I have personally seen and examined the patient, performed the documentation and the assessment and plan as written. Number of minutes spent on the visit: 10.
[2023-04-16 16:23] LABS: Glucose,Whole Blood 335 mg/dL (70-110)
[2023-04-16] MEDS: CEFEPIME 2 GM in SODIUM CHLORIDE 0.9% 100 ML IVPB SCH (16:43)
[2023-04-16] MEDS: BUDESONIDE 1 MG/2 ML NEBU INHALATION SCH (19:56)
[2023-04-16] MEDS: FORMOTEROL FUMARATE 20 MCG/2 ML NEBU INHALATION SCH (19:56)
[2023-04-16] MEDS ORDERED: CEFEPIME 2 GM in SODIUM CHLORIDE 0.9% 100 ML IVPB SCH (21:00)
[2023-04-16 21:37] LABS: Glucose,Whole Blood 265 mg/dL (70-110)
--- NOTE | 2023-04-16 22:27 | P.CONS ---
History of Present Illness - Reason for Consult Consult date: 04/16/23 Pseudomonas in the sputum Requesting physician: Rachel Crawford - Chief Complaint Increasing shortness of breath and cough x few days - History of Present Illness Patient is a 77-year-old male with a past medical history significant for diabetes mellitus hyperlipidemia pneumonia COPD patient presenting to the hospital 3 days ago for evaluation of increasing shortness of breath patient symptom was getting worse for 3 days before presentation to the hospital patient denies having any chest pain he did have a cough moderate intensity and is breathing some whitish to yellow sputum no hemoptysis patient denies having any nausea no vomiting no choking on the phone abdominal pain or any diarrhea patient on presentation to the hospital was afebrile and no fever has been recorded subsequently O2 sats only recorded on 2 L nasal cannula and has been around 98 to 99% patient did have a white count of 11,000 which is slightly up to 12,000 today with a left shift creatinine has been normal patient did have a procalcitonin of 0.05 CRP is 3.3 sputum cultures growing Pseudomonas aeruginosa that has follow-up with his infectious disease consultation patient did have a chest x-ray most consistent with CHF did not mention any consolidation Review of Systems Positive point and negatives has been mentioned in the HPI, complete review of systems was performed and all other systems are negative Past Medical History Past Medical History: Chest Pain / Angina, COPD, Diabetes Mellitus, Hyperlipide alberto, Myocardial Infarction ([place]), Osteoarthritis (OA), Pneumonia, Prostate Disorder, Supraventricular Tachycardia (SVT) Additional Past Medical History / Comment(s): Chronic hypoxic respiratory failure with home oxygen pt mostly just wears at night, past acute hypoxic respiratory failure requiring bipap, newly diagnosed NIDDM type II, BPH, UTI Last Myocardial Infarction Date:: 2008 History of Any Multi-Drug Resistant Organisms: None Reported Past Surgical History: Back Surgery, Heart Catheterization, Hernia Repair, Joint Replacement, Orthopedic Surgery Additional Past Surgical History / Comment(s): microlaryngoscopy w/ lt vocal cord bx-neg, bronch-lung bx-neg, lt inguinal hernia, low back surgery, bilateral total hip arthroplasties, bilateral cataracts removed. Past Anesthesia/Blood Transfusion Reactions: No Reported Reaction Past Psychological History: No Psychological Hx Reported Additional Psychological History / Comment(s): Pt lives in own home with his frank that has 3 steps into house has 1 cat, 1 dog. 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 Past heavy etoh use but quit heavy drinking 20 years ago now only drinks once or twice a week when he plays cards and less than 14 drinks/week. Past Drug Use History: None Reported - Past Family History Mother Family Medical History: COPD, Diabetes Mellitus Father Family Medical History: COPD, Diabetes Mellitus Brother(s) Family Medical History: Cancer Additional Family Medical History / Comment(s): leukemia Medications and Allergies Home Medications Medication Instructions Recorded Confirmed Type Aspirin 81 mg PO DAILY 07/17/16 04/13/23 History Atorvastatin [Lipitor] 20 mg PO DAILY 07/17/16 04/13/23 History Budesonide-Formot 160-4.5 Mcg 2 puff INHALATION RT-BID 07/17/16 04/13/23 History [Symbicort 160-4.5 Mcg Inhaler] Metoprolol Tartrate [Lopressor] 25 mg PO DAILY 07/23/18 04/13/23 History Ibuprofen [Motrin] 800 mg PO BID PRN 03/24/19 04/13/23 History Albuterol Sulfate [Albuterol 2 puff PO RT-Q4H PRN 04/13/23 04/13/23 History Sulfate Hfa] Theophylline 24 Hour [Sonido-24] 400 mg PO DAILY 04/13/23 04/13/23 History predniSONE [Deltasone] 20 mg PO DAILY 04/13/23 04/13/23 History Acetaminophen Tab [Tylenol] 650 mg PO Q6HR PRN tab 04/18/23 Rx Ipratropium-Albuterol Nebulize 3 ml INHALATION RT-Q4H #100 each 04/18/23 Rx [Duoneb 0.5 mg-3 mg/3 ml Soln] Levofloxacin [Levaquin] 500 mg PO Q24H 7 Days #7 tab 04/18/23 Rx predniSONE 10 mg PO DIRECTED #30 tab 04/18/23 Rx Allergies Allergy/AdvReac Type Severity Reaction Status Date / Time Penicillins Allergy Unknown Verified 04/13/23 16:11 Physical Exam Vitals: Vital Signs Temp Pulse Pulse Resp BP Pulse Ox 12/20/23 09:52 80 04/16/23 09:28 96 04/16/23 09:26 76 04/16/23 06:51 97.6 F 64 20 149/61 99 04/16/23 01:54 97.8 F 78 18 118/65 99 04/15/23 21:50 76 04/15/23 21:37 76 04/15/23 20:00 97.7 F 75 21 166/68 99 04/15/23 13:20 97.7 F 59 L 19 160/66 98 Intake and Output 04/15/23 04/16/23 04/16/23 22:59 06:59 14:59 Output Total 1200 Balance -1200 Output: Urine 1200 Other: Voiding Method Urinal # Bowel Movements 0 GENERAL DESCRIPTION: Elderly male up in bed, no distress. No tachypnea or acc essory muscle of respiration use. HEENT: Shows Pallor , no scleral icterus. Oral mucous membrane is dry. No pharyngeal erythema or thrush NECK: Trachea central, no thyromegaly. LUNGS: Unlabored breathing. Coarse breath sounds bilaterally HEART: S1, S2, regular rate and rhythm. No loud murmur ABDOMEN: Soft, no tenderness , guarding or rigidity, no organomegaly EXTREMITIES: No edema of feet. SKIN: No rash, no masses palpable. NEUROLOGICAL: The patient is awake, alert, oriented x3, mood and affect normal. Results CBC & Chem 7: 04/16/23 04:28 04/16/23 04:28 Labs: Abnormal Lab Results - Last 24 Hours (Table) 04/15/23 04/15/23 04/16/23 Range/Units 16:21 20:56 04:28 WBC 12.01 H (4.50-10.00) X 10*3/uL RBC 3.92 L (4.40-5.60) X 10*6/uL Hgb 11.6 L (13.0-17.0) g/dL Hct 36.0 L (39.6-50.0) % RDW 15.6 H (11.5-14.5) % Immature Gran # 0.07 H (0.00-0.04) X 10*3/uL Neutrophils # 10.93 H (1.80-7.70) X 10*3/uL Lymphocytes # 0.65 L (0.90-5.00) X 10*3/uL Eosinophils # 0 L (0.04-0.35) X 10*3/uL BUN/Creatinine Ratio (12.00-20.00) Ratio Glucose (70-110) mg/dL POC Glucose (mg/dL) 282 H 313 H (70-110) mg/dL 04/16/23 04/16/23 04/16/23 Range/Units 04:28 06:12 10:46 WBC (4.50-10.00) X 10*3/uL RBC (4.40-5.60) X 10*6/uL Hgb (13.0-17.0) g/dL Hct (39.6-50.0) % RDW (11.5-14.5) % Immature Gran # (0.00-0.04) X 10*3/uL Neutrophils # (1.80-7.70) X 10*3/uL Lymphocytes # (0.90-5.00) X 10*3/uL Eosinophils # (0.04-0.35) X 10*3/uL BUN/Creatinine Ratio 22.17 H (12.00-20.00) Ratio Glucose 217 H (70-110) mg/dL POC Glucose (mg/dL) 187 H 237 H (70-110) mg/dL Microbiology - Last 24 Hours (Table) 04/13/23 16:31 Gram Stain - Preliminary Sputum Sputum Culture - Preliminary Pseudomonas spec Assessment and Plan (1) Acute tracheobronchitis Status: Acute Code(s): J20.9 - ACUTE BRONCHITIS, UNSPECIFIED SNOMED Code(s): 42353537 (2) Penicillin allergy Status: Acute Code(s): Z88.0 - ALLERGY STATUS TO PENICILLIN SNOMED Code(s): 90252534 (3) Pseudomonas (aeruginosa) (mallei) (pseudomallei) as the cause of diseases classified elsewhere Status: Acute Code(s): B96.5 - PSEUDOMONAS (MALLEI) CAUSING DISEASES CLASSD ELSR SNOMED Code(s): 28566443 Plan: 1patient presented to hospital with increasing shortness of breath and cough wheezing and did have a more sputum production likely representing tr acheobronchitis with COPD exacerbation clinical not behaving as pneumonia with no fever chest x-ray did not show any consolidationprocalcitonin 0.05 and likely related to Pseudomonas aeruginosa with sensitivities pending 2-consider short course of cefepime dose adjusted to 2 g every 8 hours for und erlying purulent tracheobronchitis continue with steroids and bronchodilators per pulmonary We will follow on clinical condition and cultures to further adjust medication if needed Thank you for this consultation we will follow the patient along with you Dictation was produced using [employer] dictation software. please excuse any grammatical, word or spelling errors. Time with Patient: Greater than 30
[2023-04-17] MEDS: IPRATROPIUM-ALBUTEROL 3 ML NEB INHALATION SCH ×6 (00:10→20:34)
[2023-04-17] MEDS: CEFEPIME 2 GM in SODIUM CHLORIDE 0.9% 100 ML IVPB SCH ×4 (00:15→23:05)
[2023-04-17] MEDS: methylPREDNISolone SOD SUCCI 125 MG/2 ML VIAL IV SCH ×5 (00:15→23:06)
[2023-04-17] MEDS: IBUPROFEN 800 MG TAB PO PRN ×2 (00:16→23:06)
[2023-04-17 05:20] LABS: Glucose,Whole Blood 213 mg/dL (70-110)
[2023-04-17] MEDS: INSULIN ASPART (NovoLOG) 100 UNIT/ML VIAL SQ SCH ×4 (06:16→20:22)
--- NOTE | 2023-04-17 06:30 | P.PN ---
Subjective Progress Note Date: 04/16/23 77-year-old male came in with complains of shortness of breath is admitted for COPD exacerbation patient is usually uses 3 L of oxygen patient was comparing of cough with green sputum production patient has significant wheezing on exam is also on prednisone at home which he takes an daily basis. Patient is on theophylline as well. Patient denied any history of time start failure BNP is not elevated chest x-ray is not consistent with CHF and patient is trying to quit which she did after his last discharge was started smoking again. 04/15/2023 Patient is seen in follow-up today being followed by pulmonary maintained on breathing inhalational treatments along with IV steroids for COPD exacerbation. Patient continues to have thick copious amounts of green sputum production being expectorated and has been started on antibiotics per pulmonary. Pro-calcitonin was within normal limits. Sputum culture obtained and pending at this time. Patient is an extensive smoker and discussed with him about quitting. Patient reports he has tried to quit multiple times and most recently quit for 35 days. Patient is currently afebrile and denies significant shortness of breath. Patient reports currently has oxygen at home at night and has been maintained on 3 L while here. Continue to wean as tolerated. Patient has been encouraged to increase activity as tolerated 04/16/2023 Patient is seen in follow-up this morning being followed by pulmonary for COPD exacerbation with tracheobronchitis and have consulted infectious disease and sputum cultures were showing Pseudomonas and was started on cefepime. Patient has completed Zithromax and continues to have thick copious amounts of sputum production is expectorating. Patient continues to have wheezing maintained on IV steroids along with breathing treatments and will continue. Patient does continue on 3 L although oxygen saturations are in the upper 90s patient reports he does have as needed oxygen in the outpatient setting but usually only uses at night. Will continue current regimen and pulmonary has added Pulmicort as well. Encouraged increase activity as tolerated. Review of systems: Constitutional: No reports of fatigue, fever, or chills Cardiovascular: No reports of chest pain or palpitations Respiratory: reports of continued shortness of breath with cough and sputum production GI: No reports of nausea, vomiting, or diarrhea : No reports of dysuria or retention Neurovascular: No reports of weakness or numbness All medications have been reviewed The rest of the 14-point review of systems is negative. PHYSICAL EXAMINATION: GENERAL: The patient is alert and oriented x3, not in any acute distress. Well developed, well nourished. HEENT: Pupils are round and equally reacting to light. EOMI. No scleral icterus. No conjunctival pallor. Normocephalic, atraumatic. No pharyngeal erythema. No thyromegaly. CARDIOVASCULAR: S1 and S2 present. No murmurs, rubs, or gallops. PULMONARY: Diminished breath sounds bilaterally with coarse scattered rhonchi and Expiratory wheezing on exam. ABDOMEN: Soft, nontender, nondistended, normoactive bowel sounds. No palpable organomegaly. MUSCULOSKELETAL: No joint swelling or deformity. EXTREMITIES: No cyanosis, clubbing, or pedal edema. NEUROLOGICAL: Gross neurological examination did not reveal any focal deficits. SKIN: No rashes. Assessment and plan: -Acute on chronic hypoxic and hypercapnic respiratory failure secondary to COPD exacerbation,, continue with systemic steroids inhalational treatments there is no evidence of pneumonia at this time, concerns for possible acute tracheobronchitis patient has copious amounts of sputum and sputum culture obta ined preliminary showing Pseudomonas and has completed Zithromax and has been started on cefepime per pulmonary. infectious disease following and will continue cefepime. Per pulmonary patient may require bronchoscopy this admission -Type 2 diabetes mellitus: Patient will be continued on high-dose sliding scale with Accu-Cheks before meals and at bedtime. -Hyperglycemia, likely steroid effect -Coronary artery disease history -Dyslipidemia -Benign prostatic hypertrophy -History of SVT in the past -Continued ongoing nicotine dependence -GI prophylaxis -DVT prophylaxis -Full code The impression and plan of care has been dictated by Rachel Crawford, Nurse Practitioner as directed. Dr. Adama MD I have performed a history and examination and MDM of this patient, discussed the same with the dictator, and agree with the dictator's assessment and plan as written ,documented as a scribe. Based on total visit time, I have performed more than 50% of the visit. Objective - Vital Signs Vital signs: Vital Signs Temp 97.6 F 04/17/23 01:57 Pulse 84 04/17/23 04:49 Resp 18 04/16/23 19:27 BP 132/49 04/17/23 01:57 Pulse Ox 99 04/17/23 01:57 FiO2 Intake & Output 04/16/23 04/16/2323 06:59 18:59 06:59 Output Total 1200 400 Balance -1200 -400 Output: Urine 1200 400 Other: Voiding Method Urinal Urinal # Bowel Movements 0 - Labs CBC & Chem 7: 04/16/23 04:28 04/16/23 04:28 Labs: Abnormal Lab Results - Last 24 Hours (Table) 04/16/23 04/16/23 04/16/23 Range/Units 04:28 04:28 06:12 WBC 12.01 H (4.50-10.00) X 10*3/uL RBC 3.92 L (4.40-5.60) X 10*6/uL Hgb 11.6 L (13.0-17.0) g/dL Hct 36.0 L (39.6-50.0) % RDW 15.6 H (11.5-14.5) % Immature Gran # 0.07 H (0.00-0.04) X 10*3/uL Neutrophils # 10.93 H (1.80-7.70) X 10*3/uL Lymphocytes # 0.65 L (0.90-5.00) X 10*3/uL Eosinophils # 0 L (0.04-0.35) X 10*3/uL BUN/Creatinine Ratio 22.17 H (12.00-20.00) Ratio Glucose 217 H (70-110) mg/dL POC Glucose (mg/dL) 187 H (70-110) mg/dL 04/16/23 04/16/23 04/16/23 Range/Units 10:46 16:22 21:35 WBC (4.50-10.00) X 10*3/uL RBC (4.40-5.60) X 10*6/uL Hgb (13.0-17.0) g/dL Hct (39.6-50.0) % RDW (11.5-14.5) % Immature Gran # (0.00-0.04) X 10*3/uL Neutrophils # (1.80-7.70) X 10*3/uL Lymphocytes # (0.90-5.00) X 10*3/uL Eosinophils # (0.04-0.35) X 10*3/uL BUN/Creatinine Ratio (12.00-20.00) Ratio Glucose (70-110) mg/dL POC Glucose (mg/dL) 237 H 335 H 265 H (70-110) mg/dL 04/17/23 Range/Units 05:18 WBC (4.50-10.00) X 10*3/uL RBC (4.40-5.60) X 10*6/uL Hgb (13.0-17.0) g/dL Hct (39.6-50.0) % RDW (11.5-14.5) % Immature Gran # (0.00-0.04) X 10*3/uL Neutrophils # (1.80-7.70) X 10*3/uL Lymphocytes # (0.90-5.00) X 10*3/uL Eosinophils # (0.04-0.35) X 10*3/uL BUN/Creatinine Ratio (12.00-20.00) Ratio Glucose (70-110) mg/dL POC Glucose (mg/dL) 213 H (70-110) mg/dL Microbiology - Last 24 Hours (Table) 04/13/23 16:31 Gram Stain - Final Sputum Sputum Culture - Final Pseudomonas aeruginosa
[2023-04-17] MEDS: FORMOTEROL FUMARATE 20 MCG/2 ML NEBU INHALATION SCH ×2 (08:05→20:34)
[2023-04-17] MEDS: BUDESONIDE 1 MG/2 ML NEBU INHALATION SCH ×2 (08:05→20:34)
[2023-04-17] MEDS: THEOPHYLLINE 24 HOUR 400 MG CAP.ER.24H PO SCH (09:03)
[2023-04-17] MEDS: ASPIRIN 81 MG PO SCH (09:03)
[2023-04-17] MEDS: ATORVASTATIN 20 MG TAB PO SCH (09:03)
[2023-04-17] MEDS: FAMOTIDINE 20 MG/2 ML VIAL IV SCH ×2 (09:03→21:17)
[2023-04-17] MEDS: METOPROLOL TARTRATE 25 MG TAB PO SCH (09:03)
[2023-04-17] MEDS: ENOXAPARIN 40 MG/0.4 ML SYRINGE SQ SCH (09:03)
[2023-04-17 11:10] LABS: Glucose,Whole Blood 156 mg/dL (70-110)
--- NOTE | 2023-04-17 15:08 | P.PN ---
Subjective Progress Note Date: 04/17/23 This is a 77-year-old white male with history of severe COPD, O2 dependent, prednisone dependent, maintained usually on 10 mg of prednisone. Patient is also on DuoNeb updrafts, albuterol, Symbicort, and recently placed on theophylline at 400 mg daily. Patient came in with a 3 days history of cough wheezing and shortness of breath, cough is productive with yellow phlegm, at times slightly blood-tinged, denies any fever, denies any chills, denies any chest pain. Chest x-ray in the ER showed slight prominence of the pulmonary vasculature, however on physical examination the patient does not have findings to suggest congestive heart failure and his BNP level was normal. Patient had no previous history of congestive heart failure. Patient was admitted, and this consult was initiated. Again the patient denies any major constitutional symptoms, it is not unusual for the patient to have acute exacerbation of COPD almost on a monthly basis. I usually see this patient on a regular basis in the office with similar symptoms and unfortunately the patient continues to smoke. The patient is seen today 04/14/2023 in follow-up on the regular medical floor. He is currently sitting up at the bedside. Awake and alert in no acute distress. He is still somewhat dyspneic with conversation. Dyspneic with minimal activity. White count 7.6. Hemoglobin 12.6. Platelets 218. Sodium 139. Potassium 4.2. Bicarb 25. BUN 17. Creatinine 0.9. Glucose 163. He is continued on DuoNeb inhalations, Solu-Medrol, Symbicort, theophylline. Empiric antibiotics in the form of azithromycin. Lovenox for DVT prophylaxis. The patient is seen today 04/15/2023 in follow-up on the regular medical floor. He is currently sitting up in bed. Awake and alert in no acute distress. Continues to maintain good O2 saturations in the 90s on 3 L/m per nasal cannula. He is still congested. Loose cough. However better today compared to yesterday. Not quite back to his baseline. He is continued on DuoNeb in halations, Symbicort, Solu-Medrol. Antibiotics in the form of azithromycin. Lovenox for DVT prophylaxis. Sputum is showing a Pseudomonas species. Glucose 200. The patient is seen today 04/16/2023 in follow-up on the regular medical floor. He is currently sitting up at the bedside. Awake and alert in no acute distress. He is still dyspneic with minimal exertion. He is still requiring oxygen at liters per minute per nasal cannula. Urine culture is positive for pseudomonas aeruginosa. White count 12.0. Hemoglobin 11.6. Platelets 2:15. Sodium 139. Potassium 4.4. Bicarb 24. BUN 27. Creatinine 1.2. Glucose 217. He is continued on DuoNeb inhalations, Pulmicort and Perforomist inhalations, Solu-Medrol and theophylline. Antibiotics in the form of cefepime. Lovenox for DVT prophylaxis. The patient is seen today 04/17/2023 in follow-up on the regular medical floor. He is currently resting comfortably in bed. Awake and alert in no acute distress. Maintaining O2 saturations in the 90s on 3.5 L/m per nasal cannula. His sputum culture was positive for pseudomonas aeruginosa. He remains on cefepime. Continue on Pulmicort and Perforomist inhalations, DuoNeb inhalations, IV Solu-Medrol and theophylline. Lovenox for DVT prophylaxis. Glucose 213. Objective - Vital Signs Vital signs: Vital Signs Temp 98.8 F 04/17/23 12:32 Pulse 78 04/17/23 12:32 Resp 17 04/17/23 12:32 BP 167/70 04/17/23 12:32 Pulse Ox 93 L 04/17/23 12:32 FiO2 Intake & Output 04/16/23 04/17/23 04/17/23 18:59 06:59 18:59 Output Total 400 770 Balance -400 -770 Output: Urine 400 770 Other: Voiding Method Urinal Urinal - Exam GENERAL EXAM: Alert, 77-year-old gentleman, on 3.5 L nasal cannula, in no apparent distress. HEAD: Normocephalic. EYES: Normal reaction of pupils, equal size. NOSE: Clear with pink turbinates. THROAT: No erythema or exudates. NECK: No masses, no JVD. CHEST: No chest wall deformity. LUNGS: Equal air entry with bilateral end expiratory wheeze, diminished. CVS: S1 and S2 normal with no audible murmur, regular rhythm. ABDOMEN: No hepatosplenomegaly, normal bowel sounds, no guarding or rigidity. SPINE: No scoliosis or deformity SKIN: No rashes CENTRAL NERVOUS SYSTEM: No focal deficits, tone is normal in all 4 extremities. EXTREMITIES: There is no peripheral edema. No clubbing, no cyanosis. Peripheral pulses are intact. - Labs CBC & Chem 7: 04/16/23 04:28 04/16/23 04:28 Labs: Abnormal Lab Results - Last 24 Hours (Table) 04/16/23 04/16/23 04/17/23 Range/Units 16:22 21:35 05:18 POC Glucose (mg/dL) 335 H 265 H 213 H (70-110) mg/dL 04/17/23 Range/Units 11:08 POC Glucose (mg/dL) 156 H (70-110) mg/dL Microbiology - Last 24 Hours (Table) 04/13/23 16:31 Gram Stain - Final Sputum Sputum Culture - Final Pseudomonas aeruginosa Assessment and Plan Assessment: Acute exacerbation of COPD, patient is known to have history of stage III COPD, FEV1 is normal in the range of 46%. Sputum is positive for Pseudomonas aeruginosa and currently on cefepime Acute on chronic hypoxic respiratory failure patient is normally on home O2 at 3 L/m Tobacco dependence syndrome Previous history of SVT Dyslipidemia Degenerative joint disease Generalized anxiety disorder Insomnia Plan: The patient was seen and evaluated Labs and medications reviewed Continue cefepime, bronchodilators, steroids Titrate the FiO2 as tolerated Increase his activity as tolerated We will continue to follow I have personally seen and examined the patient, performed the documentation and the assessment and plan as written. Number of minutes spent on the visit: 10.
--- NOTE | 2023-04-17 15:25 | P.PN ---
Subjective Progress Note Date: 04/17/23 Principal diagnosis: Reason for follow-up is Pseudomonas purulent tracheobronchitis Patient is a 77-year-old male with a past medical history significant for diabetes mellitus hyperlipidemia pneumonia COPD patient presenting to the hospital for evaluation of increased shortness of breath and cough patient has been diagnosed with a purulent tracheobronchitis with COPD exacerbation sputum positive for Pseudomonas. On today's evaluation that is 04/17/2023, the patient denies having any fever or any chills, patient is breathing more comfortably cough is decreased in i ntensity still being of some whitish sputum hemoptysis no chest pain no abdominal pain and no diarrhea. Patient did have white count 12.01 with a creatinine 1.2 as of yesterday no lab draw today Objective - Vital Signs Vital signs: Vital Signs Temp 97.9 F 04/17/23 07:12 Pulse 80 04/17/23 11:27 Resp 17 04/17/23 09:35 BP 146/62 04/17/23 07:12 Pulse Ox 99 04/17/23 07:12 FiO2 Intake & Output 04/16/23 04/17/23 04/17/23 18:59 06:59 18:59 Output Total 400 770 Balance -400 -770 Output: Urine 400 770 Other: Voiding Method Urinal Urinal - Exam GENERAL DESCRIPTION: An elderly male lying in bed in no distress RESPIRATORY SYSTEM: Unlabored breathing , coarse breath sounds bilaterally HEART: S1 S2 regular rate and rhythm , ABDOMEN: Soft , no tenderness EXTREMITIES: No edema feet - Labs CBC & Chem 7: 04/16/23 04:28 04/16/23 04:28 Labs: Abnormal Lab Results - Last 24 Hours (Table) 04/16/23 04/16/23 04/17/23 Range/Units 16:22 21:35 05:18 POC Glucose (mg/dL) 335 H 265 H 213 H (70-110) mg/dL 04/17/23 Range/Units 11:08 POC Glucose (mg/dL) 156 H (70-110) mg/dL Microbiology - Last 24 Hours (Table) 04/13/23 16:31 Gram Stain - Final Sputum Sputum Culture - Final Pseudomonas aeruginosa Assessment and Plan (1) Acute tracheobronchitis Current Visit: Yes Status: Acute Code(s): J20.9 - ACUTE BRONCHITIS, UNSPECIFIED SNOMED Code(s): 46515444 (2) Pseudomonas (aeruginosa) (mallei) (pseudomallei) as the cause of diseases classified elsewhere Current Visit: Yes Status: Acute Code(s): B96.5 - PSEUDOMONAS (MALLEI) CAUSING DISEASES CLASSD ELSWHR SNOMED Code(s): 00542400 (3) Penicillin allergy Current Visit: Yes Status: Acute Code(s): Z88.0 - ALLERGY STATUS TO PENICILLIN SNOMED Code(s): 29786461 Plan: 1patient presented to hospital with increasing shortness of breath and cough wh eezing and did have a more sputum production likely representing tracheobronchitis with COPD exacerbation clinical not behaving as pneumonia with no fever chest x-ray did not show any consolidationprocalcitonin 0.05 and likely related to Pseudomonas aeruginosa , Which is sensitive to cefepime as we ll as Cipro. 2patient to continue with cefepime while inpatient and short course of oral Cipro on discharge for underlying purulent tracheobronchitis questions concern answered Dictation was produced using [employer] software. please excuse any grammatical, word or spelling errors.
[2023-04-17 16:10] LABS: Glucose,Whole Blood 255 mg/dL (70-110)
[2023-04-17 20:07] LABS: Glucose,Whole Blood 234 mg/dL (70-110)
[2023-04-18] MEDS: IPRATROPIUM-ALBUTEROL 3 ML NEB INHALATION SCH ×3 (00:35→11:52)
[2023-04-18] MEDS: IBUPROFEN 800 MG TAB PO PRN (03:49)
[2023-04-18 05:30] LABS: Glucose,Whole Blood 188 mg/dL (70-110)
--- NOTE | 2023-04-18 05:50 | P.PN ---
Subjective Progress Note Date: 04/17/23 77-year-old male came in with complains of shortness of breath is admitted for COPD exacerbation patient is usually uses 3 L of oxygen patient was comparing of cough with green sputum production patient has significant wheezing on exam is also on prednisone at home which he takes an daily basis. Patient is on theophylline as well. Patient denied any history of time start failure BNP is not elevated chest x-ray is not consistent with CHF and patient is trying to quit which she did after his last discharge was started smoking again. 04/15/2023 Patient is seen in follow-up today being followed by pulmonary maintained on breathing inhalational treatments along with IV steroids for COPD exacerbation. Patient continues to have thick copious amounts of green sputum production being expectorated and has been started on antibiotics per pulmonary. Pro-calcitonin was within normal limits. Sputum culture obtained and pending at this time. Patient is an extensive smoker and discussed with him about quitting. Patient reports he has tried to quit multiple times and most recently quit for 35 days. Patient is currently afebrile and denies significant shortness of breath. Patient reports currently has oxygen at home at night and has been maintained on 3 L while here. Continue to wean as tolerated. Patient has been encouraged to increase activity as tolerated 04/16/2023 Patient is seen in follow-up this morning being followed by pulmonary for COPD exacerbation with tracheobronchitis and have consulted infectious disease and sputum cultures were showing Pseudomonas and was started on cefepime. Patient has completed Zithromax and continues to have thick copious amounts of sputum production is expectorating. Patient continues to have wheezing maintained on IV steroids along with breathing treatments and will continue. Patient does continue on 3 L although oxygen saturations are in the upper 90s patient reports he does have as needed oxygen in the outpatient setting but usually only uses at night. Will continue current regimen and pulmonary has added Pulmicort as well. Encouraged increase activity as tolerated. 04/17/2023 Patient is seen this morning and continues on IV steroids as well as breathing treatments with pulmonary and infectious disease following. Patient also continues on cefepime for pseudomonas in the sputum. Patient is currently on 3 L via NC and attempting to wean as tolerated. Patient does have oxygen at home as needed. Patient continues to have cough with significant amount of sputum expectorating and have encouraged the patient continue cough and deep breathing. Patient is afebrile with no reported chest pain or palpitations. Blood sugars are being monitored with Accu-Cheks before meals and at bedtime and using sliding scale as needed. Will discuss further with pulmonary and discharge planning. Continue to encourage complete smoking cessation Review of systems: Constitutional: No reports of fatigue, fever, or chills Cardiovascular: No reports of chest pain or palpitations Respiratory: reports of continued shortness of breath with cough and sputum production GI: No reports of nausea, vomiting, or diarrhea : No reports of dysuria or retention Neurovascular: No reports of weakness or numbness All medications have been reviewed PHYSICAL EXAMINATION: GENERAL: The patient is alert and oriented x3, not in any acute distress. Well developed, well nourished. HEENT: Pupils are round and equally reacting to light. EOMI. No scleral icterus. No conjunctival pallor. Normocephalic, atraumatic. No pharyngeal erythema. No thyromegaly. CARDIOVASCULAR: S1 and S2 present. No murmurs, rubs, or gallops. PULMONARY: Diminished breath sounds bilaterally with coarse scattered rhonchi and Expiratory wheezing on exam. ABDOMEN: Soft, nontender, nondistended, normoactive bowel sounds. No palpable organomegaly. MUSCULOSKELETAL: No joint swelling or deformity. EXTREMITIES: No cyanosis, clubbing, or pedal edema. NEUROLOGICAL: Gross neurological examination did not reveal any focal deficits. SKIN: No rashes. Assessment and plan: -Acute on chronic hypoxic and hypercapnic respiratory failure secondary to COPD exacerbation,, continue with systemic steroids inhalational treatments there is no evidence of pneumonia at this time, concerns for possible acute tracheobronchitis patient has copious amounts of sputum and sputum culture obtained showing Pseudomonas and is continued on cefepime per pulmonary. infectious disease following as well. -Type 2 diabetes mellitus: Patient will be continued on high-dose sliding scale with Accu-Cheks before meals and at bedtime. -Hyperglycemia, likely steroid effect -Coronary artery disease history -Dyslipidemia -Benign prostatic hypertrophy -History of SVT in the past -Continued ongoing nicotine dependence -GI prophylaxis -DVT prophylaxis -Full code Will need to discuss further with pulmonary on discharge planning this patient is not quite ready yet and continues to be on 3-1/2 L of oxygen via nasal cannula. The impression and plan of care has been dictated by Rachel Crawford, Nurse Practitioner as directed. Dr. Adama MD I have performed a history and examination and MDM of this patient, discussed the same with the dictator, and agree with the dictator's assessment and plan as written ,documented as a scribe. Based on total visit time, I have performed more than 50% of the visit. Objective - Vital Signs Vital signs: Vital Signs Temp 97.7 F 04/18/23 01:53 Pulse 80 04/18/23 01:53 Resp 16 04/18/23 01:53 BP 157/62 04/18/23 01:53 Pulse Ox 98 04/18/23 01:53 FiO2 Intake & Output 04/17/23 04/17/23 04/18/23 06:59 18:59 06:59 Intake Total 10 Output Total 770 Balance -770 10 Intake: IV 10 Invasive Line 3 10 Output: Urine 770 Other: Voiding Method Urinal Urinal Urinal # Voids 4 - Labs CBC & Chem 7: 04/16/23 04:28 04/16/23 04:28 Labs: Abnormal Lab Results - Last 24 Hours (Table) 04/17/23 04/17/23 04/17/23 Range/Units 11:08 16:07 20:06 POC Glucose (mg/dL) 156 H 255 H 234 H (70-110) mg/dL 04/18/23 Range/Units 05:28 POC Glucose (mg/dL) 188 H (70-110) mg/dL
[2023-04-18] MEDS: methylPREDNISolone SOD SUCCI 125 MG/2 ML VIAL IV SCH ×2 (06:46→13:35)
[2023-04-18] MEDS: INSULIN ASPART (NovoLOG) 100 UNIT/ML VIAL SQ SCH ×2 (06:47→13:35)
[2023-04-18] MEDS: FORMOTEROL FUMARATE 20 MCG/2 ML NEBU INHALATION SCH (08:54)
[2023-04-18] MEDS: BUDESONIDE 1 MG/2 ML NEBU INHALATION SCH (08:54)
[2023-04-18 09:14] VITALS: BP 171/77; RESP 17; TEMP 97.6
[2023-04-18] MEDS: ATORVASTATIN 20 MG TAB PO SCH (10:09)
[2023-04-18] MEDS: CEFEPIME 2 GM in SODIUM CHLORIDE 0.9% 100 ML IVPB SCH (10:09)
[2023-04-18] MEDS: THEOPHYLLINE 24 HOUR 400 MG CAP.ER.24H PO SCH (10:09)
[2023-04-18] MEDS: ASPIRIN 81 MG PO SCH (10:09)
[2023-04-18] MEDS: FAMOTIDINE 20 MG/2 ML VIAL IV SCH (10:09)
[2023-04-18] MEDS: METOPROLOL TARTRATE 25 MG TAB PO SCH (10:09)
[2023-04-18] MEDS: ENOXAPARIN 40 MG/0.4 ML SYRINGE SQ SCH (10:10)
[2023-04-18 12:13] LABS: Glucose,Whole Blood 233 mg/dL (70-110)
[2023-04-18 12:38] VITALS: PULSE 88
--- NOTE | 2023-04-18 14:28 | P.DS ---
Providers Date of admission: 04/15/23 15:11 Expected date of discharge: 04/18/23 Attending physician: Rolly Hunt MD Consults: 04/13/23 17:07 Consult Physician Urgent Consulting Provider: Bonnie Robison Consult Reason/Comments: COPD exacerbation Do you want consulting provider notified?: Yes 04/15/23 20:06 Consult Physician Urgent Consulting Provider: Naima Reynoso Consult Reason/Comments: pseudomonas in the sputum Do you want consulting provider notified?: Yes Primary care physician: Britni Peres Hospital Course: Final diagnosis -Acute on chronic hypoxic and hypercapnic respiratory failure secondary to COPD exacerbation -Acute tracheobronchitis with Pseudomonas in the sputum culture -Type 2 diabetes mellitus , uncontrolled with hyperglycemia, likely steroid eff ect as well -Hyperglycemia, likely steroid effect -Coronary artery disease history -Dyslipidemia -Benign prostatic hypertrophy -History of SVT in the past -Continued ongoing nicotine dependence -GI prophylaxis -DVT prophylaxis -Full code Discharge disposition Patient is being discharged in a stable condition with guarded prognosis to home . Patient will follow-up with Dr. Peres in the outpatient setting upon discharge. Patient is to continue with oral Levaquin 500 mg daily for the next 7 days and close outpatient follow-up with pulmonary as scheduled. Complete tobacco cessation was extensively counseled. Total time taken is greater than 35 minutes. Hospital course This is a 77-year-old male who was recently admitted with increased shortness of breath and COPD exacerbation with acute tracheobronchitis. Sputum culture showed Pseudomonas which is sensitive to cefepime and will continue on oral Levaquin on discharge for 7 days per pulmonary recommendations. Patient continued on breathing inhalational treatments along with IV steroids and will be transitioned to prednisone taper prior to resuming his daily dosing of prednisone 20 mg. Patient does have oxygen in the outpatient setting normally only wears it at night and currently maintained on 3 L. Patient has been cleared by consultations for discharge home today with close outpatient follow- up. Please refer to consultation note for further HPI. Extensive counseling regarding complete tobacco cessation was done and patient reports he does not want to continue to smoke anymore. Currently no reports of chest pain, worsening shortness of breath, or palpitations. Patient is afebrile. No reports of nausea or vomiting and patient is tolerating diet. Patient will be discharged home today. Guarded prognosis and high risk for readmissions given patient's noncompliance and significant comorbidities. Physical exam: Gen: This is a 77 rolled male who is awake, alert and oriented 3, well- developed, well-nourished, elderly-appearing HEENT: Head is atraumatic, normocephalic. Pupils equal, round. Sclerae is anicteric. NECK: Supple. No JVD. No lymphadenopathy. No thyromegaly. LUNGS: Diminished breath sounds bilaterally with coarse rhonchi and some expiratory wheezing noted. No intercostal retractions. HEART: Regular rate and rhythm. No murmur. ABDOMEN: Soft. Bowel sounds are present. No masses. No tenderness. EXTREMITIES: No pedal edema. No calf tenderness. NEUROLOGICAL: Patient is awake, alert and oriented x3. Cranial nerves 2 through 12 are grossly intact. Please refer to medication reconciliation sheet for a list of medications. The impression and plan of care has been dictated by Rachel Crawford, Nurse Practitioner as directed. Dr. Adama MD I have performed a history and examination and MDM of this patient, discussed the same with the dictator, and agree with the dictator's assessment and plan as written ,documented as a scribe. Based on total visit time, I have performed more than 50% of the visit. Patient Condition at Discharge: Fair Plan - Discharge Summary Discharge Rx Participant: No New Discharge Prescriptions: New Levofloxacin [Levaquin] 500 mg PO Q24H 7 Days #7 tab predniSONE 10 mg PO DIRECTED #30 tab Acetaminophen Tab [Tylenol] 650 mg PO Q6HR PRN tab PRN Reason: Mild Pain Or Fever > 100.5 Continue Atorvastatin [Lipitor] 20 mg PO DAILY Aspirin 81 mg PO DAILY Budesonide-Formot 160-4.5 Mcg [Symbicort 160-4.5 Mcg Inhaler] 2 puff INHALATION RT-BID Metoprolol Tartrate [Lopressor] 25 mg PO DAILY Ibuprofen [Motrin] 800 mg PO BID PRN PRN Reason: Pain predniSONE [Deltasone] 20 mg PO DAILY Ipratropium-Albuterol Nebulize [Duoneb 0.5 mg-3 mg/3 ml Soln] 3 ml INHALATION RT-Q4H #100 each Theophylline 24 Hour [Sonido-24] 400 mg PO DAILY Albuterol Sulfate [Albuterol Sulfate Hfa] 2 puff PO RT-Q4H PRN PRN Reason: Shortness Of Breath Discharge Medication List Aspirin 81 mg PO DAILY 07/17/16 [History] Atorvastatin [Lipitor] 20 mg PO DAILY 07/17/16 [History] Budesonide-Formot 160-4.5 Mcg [Symbicort 160-4.5 Mcg Inhaler] 2 puff INHALATION RT-BID 07/17/16 [History] Metoprolol Tartrate [Lopressor] 25 mg PO DAILY 07/23/18 [History] Ibuprofen [Motrin] 800 mg PO BID PRN 03/24/19 [History] Albuterol Sulfate [Albuterol Sulfate Hfa] 2 puff PO RT-Q4H PRN 04/13/23 [History] Theophylline 24 Hour [Sonido-24] 400 mg PO DAILY 04/13/23 [History] predniSONE [Deltasone] 20 mg PO DAILY 04/13/23 [History] Acetaminophen Tab [Tylenol] 650 mg PO Q6HR PRN tab 04/18/23 [Rx] Ipratropium-Albuterol Nebulize [Duoneb 0.5 mg-3 mg/3 ml Soln] 3 ml INHALATION RT-Q4H #100 each 04/18/23 [Rx] Levofloxacin [Levaquin] 500 mg PO Q24H 7 Days #7 tab 04/18/23 [Rx] predniSONE 10 mg PO DIRECTED #30 tab 04/18/23 [Rx] Follow up Appointment(s)/Referral(s): Jeremie Suárez DO [Doctor of Osteopathic Medicine] - 05/05/23 10:00 am (with Enriqueta) Britni Peres MD [Primary Care Provider] - 1-2 days (office is closed at time of discharge. Please call to schedule appointment ) Activity/Diet/Wound Care/Special Instructions: Activity Limited until follow-up Follow-up with primary care provider on discharge Follow-up with pulmonary outpatient Continue taking medication as prescribed Continue with prednisone taper prior to resuming her daily dose of prednisone Continue antibiotics until finished Avoid all tobacco use and exposure Discharge Disposition: HOME SELF-CARE
--- NOTE | 2023-04-18 14:45 | P.PN ---
Subjective Progress Note Date: 04/18/23 This is a 77-year-old white male with history of severe COPD, O2 dependent, prednisone dependent, maintained usually on 10 mg of prednisone. Patient is also on DuoNeb updrafts, albuterol, Symbicort, and recently placed on theophylline at 400 mg daily. Patient came in with a 3 days history of cough wheezing and shortness of breath, cough is productive with yellow phlegm, at times slightly blood-tinged, denies any fever, denies any chills, denies any chest pain. Chest x-ray in the ER showed slight prominence of the pulmonary vasculature, however on physical examination the patient does not have findings to suggest congestive heart failure and his BNP level was normal. Patient had no previous history of congestive heart failure. Patient was admitted, and this consult was initiated. Again the patient denies any major constitutional symptoms, it is not unusual for the patient to have acute exacerbation of COPD almost on a monthly basis. I usually see this patient on a regular basis in the office with similar symptoms and unfortunately the patient continues to smoke. The patient is seen today 04/14/2023 in follow-up on the regular medical floor. He is currently sitting up at the bedside. Awake and alert in no acute distress. He is still somewhat dyspneic with conversation. Dyspneic with minimal activity. White count 7.6. Hemoglobin 12.6. Platelets 218. Sodium 139. Potassium 4.2. Bicarb 25. BUN 17. Creatinine 0.9. Glucose 163. He is continued on DuoNeb inhalations, Solu-Medrol, Symbicort, theophylline. Empiric antibiotics in the form of azithromycin. Lovenox for DVT prophylaxis. The patient is seen today 04/15/2023 in follow-up on the regular medical floor. He is currently sitting up in bed. Awake and alert in no acute distress. Continues to maintain good O2 saturations in the 90s on 3 L/m per nasal cannula. He is still congested. Loose cough. However better today compared to yesterday. Not quite back to his baseline. He is continued on DuoNeb in halations, Symbicort, Solu-Medrol. Antibiotics in the form of azithromycin. Lovenox for DVT prophylaxis. Sputum is showing a Pseudomonas species. Glucose 200. The patient is seen today 04/16/2023 in follow-up on the regular medical floor. He is currently sitting up at the bedside. Awake and alert in no acute distress. He is still dyspneic with minimal exertion. He is still requiring oxygen at liters per minute per nasal cannula. Urine culture is positive for pseudomonas aeruginosa. White count 12.0. Hemoglobin 11.6. Platelets 2:15. Sodium 139. Potassium 4.4. Bicarb 24. BUN 27. Creatinine 1.2. Glucose 217. He is continued on DuoNeb inhalations, Pulmicort and Perforomist inhalations, Solu-Medrol and theophylline. Antibiotics in the form of cefepime. Lovenox for DVT prophylaxis. The patient is seen today 04/17/2023 in follow-up on the regular medical floor. He is currently resting comfortably in bed. Awake and alert in no acute distress. Maintaining O2 saturations in the 90s on 3.5 L/m per nasal cannula. His sputum culture was positive for pseudomonas aeruginosa. He remains on cefepime. Continue on Pulmicort and Perforomist inhalations, DuoNeb inhalations, IV Solu-Medrol and theophylline. Lovenox for DVT prophylaxis. Glucose 213. The patient is seen today 04/18/2023 in follow-up on the regular medical floor. He is awake and alert in no acute distress. Sitting up in bed. Denies any worsening shortness of breath, cough or congestion. Feeling back to his baseline. He is continued on Pulmicort and Perforomist inhalations, DuoNeb inhalations, Solu-Medrol, theophylline. Culture was positive for pseudomonas aeruginosa. He remains on cefepime. Glucose 188. Objective - Vital Signs Vital signs: Vital Signs Temp 97.6 F 04/18/23 07:00 Pulse 88 04/18/23 11:55 Resp 17 04/18/23 07:00 BP 171/77 04/18/23 07:00 Pulse Ox 98 04/18/23 08:54 FiO2 Intake & Output 04/17/23 04/18/23 04/18/23 18:59 06:59 18:59 Intake Total 10 Balance 10 Intake: IV 10 Invasive Line 3 10 Other: Voiding Method Urinal Urinal # Voids 4 1 - Exam GENERAL EXAM: Alert, pleasant 77-year-old gentleman, on 3 L nasal cannula, in no apparent distress. HEAD: Normocephalic. EYES: Normal reaction of pupils, equal size. NOSE: Clear with pink turbinates. THROAT: No erythema or exudates. NECK: No masses, no JVD. CHEST: No chest wall deformity. LUNGS: Equal air entry with bilateral end expiratory wheeze, diminished. CVS: S1 and S2 normal with no audible murmur, regular rhythm. ABDOMEN: No hepatosplenomegaly, normal bowel sounds, no guarding or rigidity. SPINE: No scoliosis or deformity SKIN: No rashes CENTRAL NERVOUS SYSTEM: No focal deficits, tone is normal in all 4 extremities. EXTREMITIES: There is no peripheral edema. No clubbing, no cyanosis. Peripheral pulses are intact. - Labs CBC & Chem 7: 04/16/23 04:28 04/16/23 04:28 Labs: Abnormal Lab Results - Last 24 Hours (Table) 04/17/23 04/17/23 04/18/23 Range/Units 16:07 20:06 05:28 POC Glucose (mg/dL) 255 H 234 H 188 H (70-110) mg/dL 04/18/23 Range/Units 12:12 POC Glucose (mg/dL) 233 H (70-110) mg/dL Assessment and Plan Assessment: Acute exacerbation of COPD, patient is known to have history of stage III COPD, FEV1 is normal in the range of 46%. Sputum is positive for Pseudomonas aeru ginosa and currently on cefepime Acute on chronic hypoxic respiratory failure patient is normally on home O2 at 3 L/m Tobacco dependence syndrome Previous history of SVT Dyslipidemia Degenerative joint disease Generalized anxiety disorder Insomnia Plan: The patient was seen and evaluated Labs and medications reviewed David for discharge from the pulmonary standpoint Complete a seven-day course of Levaquin Continue a prednisone taper Continue his home pulmonary medications, oxygen Follow-up in the office in 1 week I have personally seen and examined the patient, performed the documentation and the assessment and plan as written. Number of minutes spent on the visit: 10.
--- NOTE | 2023-04-18 14:47 | P.PN ---
Subjective Progress Note Date: 04/18/23 Principal diagnosis: Reason for follow-up is Pseudomonas purulent tracheobronchitis Patient is a 77-year-old male with a past medical history significant for diabetes mellitus hyperlipidemia pneumonia COPD patient presenting to the hospital for evaluation of increased shortness of breath and cough patient has been diagnosed with a purulent tracheobronchitis with COPD exacerbation sputum positive for Pseudomonas. On today's evaluation that is 04/18/2023 the patient denies having any fever or any chills, the patient is breathing comfortably on 3 L nasal cannula oxygen the patient cough decrease in intensity and is productive and no nausea vomiting no abdominal pain and no diarrhea no new labs were obtained today Objective - Vital Signs Vital signs: Vital Signs Temp 97.6 F 04/18/23 07:00 Pulse 88 04/18/23 11:55 Resp 17 04/18/23 07:00 BP 171/77 04/18/23 07:00 Pulse Ox 98 04/18/23 08:54 FiO2 Intake & Output 04/17/23 04/18/23 04/18/23 18:59 06:59 18:59 Intake Total 10 Balance 10 Intake: IV 10 Invasive Line 3 10 Other: Voiding Method Urinal Urinal # Voids 4 1 - Exam GENERAL DESCRIPTION: An elderly male lying in bed in no distress RESPIRATORY SYSTEM: Unlabored breathing , coarse breath sounds bilaterally HEART: S1 S2 regular rate and rhythm , ABDOMEN: Soft , no tenderness EXTREMITIES: No edema feet - Labs CBC & Chem 7: 04/16/23 04:28 04/16/23 04:28 Labs: Abnormal Lab Results - Last 24 Hours (Table) 04/17/23 04/17/23 04/18/23 Range/Units 16:07 20:06 05:28 POC Glucose (mg/dL) 255 H 234 H 188 H (70-110) mg/dL 04/18/23 Range/Units 12:12 POC Glucose (mg/dL) 233 H (70-110) mg/dL Assessment and Plan (1) Acute tracheobronchitis Status: Acute Code(s): J20.9 - ACUTE BRONCHITIS, UNSPECIFIED SNOMED Code(s): 96332166 (2) Pseudomonas (aeruginosa) (mallei) (pseudomallei) as the cause of diseases classified elsewhere Status: Acute Code(s): B96.5 - PSEUDOMONAS (MALLEI) CAUSING DISEASES CLASSD [id number] SNOMED Code(s): 69336530 (3) Penicillin allergy Status: Acute Code(s): Z88.0 - ALLERGY STATUS TO PENICILLIN SNOMED Code(s): 54411892 Plan: 1patient presented to hospital with increasing shortness of breath and cough wheezing and did have a more sputum production likely representing tracheobronchitis with COPD exacerbation clinical not behaving as pneumonia with no fever chest x-ray did not show any consolidationprocalcitonin 0.05 and likely related to Pseudomonas aeruginosa , Which is sensitive to cefepime as well as Cipro. 2patient has shown clinical improvement on cefepime consider short course of oral Cipro/Levaquin on discharge, and close outpatient follow-up Dictation was produced using [employer] dictation software. please excuse any grammatical, word or spelling errors. Time with Patient: Less than 30
[2023-04-19] MEDS ORDERED: LEVOFLOXACIN 500 MG TAB PO SCH (09:00)
== END 2023-04-18 14:27 | disposition home or self-care (01) | DRG 190 ==
LOC: EC 14:30 → 4SSUR 16:36 → OBSVTOIN 04-15 15:11
PROVIDERS: ADMIT Internal Medicine; ATTEND Internal Medicine
DX: J44.1 Chronic obstructive pulmonary disease with (acute) exacerbation (principal); J96.21 Acute and chronic respiratory failure with hypoxia; J96.22 Acute and chronic respiratory failure with hypercapnia; I11.0 Hypertensive heart disease with heart failure; E11.65 Type 2 diabetes mellitus with hyperglycemia; F10.90 Alcohol use, unspecified, uncomplicated; B96.5 Pseudomonas (aeruginosa) (mallei) (pseudomallei) as the cause of diseases classified elsewhere; J44.0 Chronic obstructive pulmonary disease with (acute) lower respiratory infection; E78.5 Hyperlipidemia, unspecified; J20.8 Acute bronchitis due to other specified organisms; T38.0X5A Adverse effect of glucocorticoids and synthetic analogues, initial encounter; I25.10 Atherosclerotic heart disease of native coronary artery without angina pectoris; F17.210 Nicotine dependence, cigarettes, uncomplicated; M19.90 Unspecified osteoarthritis, unspecified site; F41.1 Generalized anxiety disorder; G47.00 Insomnia, unspecified; N40.0 Benign prostatic hyperplasia without lower urinary tract symptoms; Z96.643 Presence of artificial hip joint, bilateral; Z99.81 Dependence on supplemental oxygen; Z86.79 Personal history of other diseases of the circulatory system; Z79.52 Long term (current) use of systemic steroids; Z11.52 Encounter for screening for COVID-19; I25.2 Old myocardial infarction; Z91.199 Patient's noncompliance with other medical treatment and regimen due to unspecified reason; Z79.82 Long term (current) use of aspirin; Z82.5 Family history of asthma and other chronic lower respiratory diseases; Z79.51 Long term (current) use of inhaled steroids; Z88.0 Allergy status to penicillin; Z79.899 Other long term (current) drug therapy
CPT/HCPCS: 36415; 71046; 80048; 80053; 83605; 83735; 83880; 84145; 84484; 85025; 85610; 85730; 86140; 87070; 87077; 87186; 87205; 87636; 93005; 94640; 94760; 96374; 99285

== ENCOUNTER 2023-05-10 06:31 | Inpatient (IN) | payer MEDICARE ==
[2023-05-10] MEDS ORDERED: IPRATROPIUM-ALBUTEROL 3 ML NEB INHALATION STA (06:54)
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
--- NOTE | 2023-05-10 07:38 | XR ---
EXAMINATION TYPE: XR chest 2V DATE OF EXAM: 05/10/2023 COMPARISON: 04/13/2023 INDICATION: Difficulty breathing TECHNIQUE: Frontal and lateral views of the chest are obtained. FINDINGS: The heart size is normal. The pulmonary vasculature is normal. There is hyperinflation flattening the diaphragms compatible with COPD. Increased perihilar lung prince ings are present. Correlate for pulmonary edema. Viral pneumonia could be considered. Small right ple ural effusion is present. IMPRESSION: 1. Mild perihilar infiltrates correlate for viral pneumonia. 2. Small right pleural effusion. 3. COPD
[2023-05-10 07:39] LABS: Anisocytosis Slight; Basophils % (A) 0 %; Eosinophils # (A) 0.1 k/uL (0-0.7); Eosinophils % (A) 1 %; HCT 41.8 % (39.0-53.0); HGB 14.1 gm/dL (13.0-17.5); Lymphocytes # (A) 1.9 k/uL (1.0-4.8); Lymphocytes % (A) 21 %; MCH 30.5 pg (25.0-35.0); MCHC 33.7 g/dL (31.0-37.0); MCV 90.7 fL (80.0-100.0); Mean Platelet Volume 8.5; Monocytes # (A) 0.8 k/uL (0-1.0); Monocytes % (A) 9 %; Neutrophils # (A) 5.9 k/uL (1.3-7.7); Neutrophils % (A) 65 %; Platelet Count 211 k/uL (150-450); RDW 16.6 % (11.5-15.5); WBC 9.1 k/uL (3.8-10.6)
[2023-05-10 07:52] LABS: ALT 22 U/L (4-49); AST 18 U/L (17-59); African American GFR (CKD) >90 (>60 ml/min/1.73 sqM); Albumin 3.9 g/dL (3.5-5.0); Alkaline Phosphatase 70 U/L (38-126); Anion Gap 11 mmol/L; Blood Urea Nitrogen 23 mg/dL (9-20); Calcium 9.2 mg/dL (8.4-10.2); Carbon Dioxide 26 mmol/L (22-30); Chloride 104 mmol/L (98-107); Glucose 78 mg/dL (74-99); Non-African American GFR(CKD) 83 (>60 ml/min/1.73 sqM); Potassium 3.8 mmol/L (3.5-5.1); Sodium 141 mmol/L (137-145); Total Bilirubin 0.6 mg/dL (0.2-1.3); Total Protein 6.5 g/dL (6.3-8.2)
[2023-05-10 08:00] LABS: NT-Pro-B-Type Natriuretic Pept 657 pg/mL
[2023-05-10 08:03] LABS: INR 0.9 (<1.2); Prothrombin Time 10.3 sec (10.0-12.5)
[2023-05-10 08:38] LABS: Partial Thromboplastin Time 21.7 sec (22.0-30.0)
[2023-05-10] MEDS ORDERED: AZITHROMYCIN 500 MG in SODIUM CHLORIDE 0.9% 250 ML IVPB STA (08:44)
[2023-05-10] MEDS ORDERED: guaiFENesin-DM 600/30MG 1 EACH TAB.ER.12H PO STA (08:46)
[2023-05-10] MEDS ORDERED: methylPREDNISolone SOD SUCCI 125 MG/2 ML VIAL IV STA (08:57)
[2023-05-10] MEDS ORDERED: NALOXONE 0.4 MG/ML 1 ML VIAL IV PRN (09:29)
[2023-05-10] MEDS ORDERED: HYDROcodone/APAP 5-325MG 1 EACH TAB PO PRN (09:29)
[2023-05-10] MEDS ORDERED: ACETAMINOPHEN TAB 325 MG TAB PO PRN ×2 (09:29→18:09)
[2023-05-10] MEDS ORDERED: ONDANSETRON 4 MG/2 ML VIAL IVP PRN (09:29)
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
[2023-05-10] MEDS ORDERED: ALBUTEROL NEBULIZED 2.5 MG/3 ML INHALATION PRN (18:09)
[2023-05-10] MEDS ORDERED: ALPRAZolam 0.5 MG TAB PO PRN (18:10)
[2023-05-10] MEDS ORDERED: THEOPHYLLINE 24 HOUR 400 MG CAP.ER.24H PO SCH (18:15)
[2023-05-10] MEDS: NICOTINE 21MG/24HR PATCH TRANSDERM SCH (18:54)
[2023-05-10] MEDS: FAMOTIDINE 20 MG/2 ML VIAL IV SCH (20:28)
[2023-05-10] MEDS: SYMBICORT 160-4.5 MCG INHALER INHALATION SCH (20:53)
[2023-05-10] MEDS: IPRATROPIUM-ALBUTEROL 3 ML NEB INHALATION SCH (20:53)
[2023-05-10] MEDS: HEPARIN SODIUM,PORCINE 5,000 UNIT/ML 1 ML VIAL SQ SCH (21:04)
[2023-05-11] MEDS: IPRATROPIUM-ALBUTEROL 3 ML NEB INHALATION SCH ×6 (00:28→18:36)
[2023-05-11 05:16] LABS: Glucose,Whole Blood 148 mg/dL (70-110)
[2023-05-11] MEDS: HEPARIN SODIUM,PORCINE 5,000 UNIT/ML 1 ML VIAL SQ SCH ×2 (08:02→20:30)
[2023-05-11] MEDS: ASPIRIN 81 MG PO SCH (08:03)
[2023-05-11] MEDS: ATORVASTATIN 20 MG TAB PO SCH (08:03)
[2023-05-11] MEDS: FAMOTIDINE 20 MG/2 ML VIAL IV SCH (08:03)
[2023-05-11] MEDS: METOPROLOL TARTRATE 25 MG TAB PO SCH (08:03)
[2023-05-11] MEDS: NICOTINE 21MG/24HR PATCH TRANSDERM SCH (08:04)
[2023-05-11] MEDS ORDERED: AZITHROMYCIN 500 MG TAB PO SCH (09:00)
[2023-05-11] MEDS: SYMBICORT 160-4.5 MCG INHALER INHALATION SCH ×2 (09:06→18:36)
[2023-05-11 11:46] LABS: Glucose,Whole Blood 138 mg/dL (70-110)
[2023-05-11] MEDS: methylPREDNISolone SOD SUCCI 125 MG/2 ML VIAL IV SCH ×2 (12:54→17:26)
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
[2023-05-11 16:46] LABS: Glucose,Whole Blood 232 mg/dL (70-110)
[2023-05-11] MEDS ORDERED: DEXTROSE 50% SYRINGE 50 ML IVP PRN ×2 (16:59)
[2023-05-11] MEDS: INSULIN ASPART (NovoLOG) 100 UNIT/ML VIAL SQ SCH ×2 (17:26→20:30)
[2023-05-11 20:01] LABS: Glucose,Whole Blood 301 mg/dL (70-110)
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
[2023-05-12] MEDS: IPRATROPIUM-ALBUTEROL 3 ML NEB INHALATION SCH ×6 (00:08→21:20)
[2023-05-12] MEDS: methylPREDNISolone SOD SUCCI 125 MG/2 ML VIAL IV SCH ×6 (01:39→23:29)
[2023-05-12] MEDS: IBUPROFEN 800 MG TAB PO PRN (01:42)
[2023-05-12] MEDS: FAMOTIDINE 20 MG/2 ML VIAL IV SCH ×3 (04:38→21:36)
[2023-05-12 06:12] LABS: Glucose,Whole Blood 187 mg/dL (70-110)
[2023-05-12] MEDS: INSULIN ASPART (NovoLOG) 100 UNIT/ML VIAL SQ SCH ×5 (06:23→21:35)
[2023-05-12] MEDS: SYMBICORT 160-4.5 MCG INHALER INHALATION SCH ×2 (08:16→21:21)
[2023-05-12] MEDS: NICOTINE 21MG/24HR PATCH TRANSDERM SCH (08:42)
[2023-05-12] MEDS: HEPARIN SODIUM,PORCINE 5,000 UNIT/ML 1 ML VIAL SQ SCH ×2 (08:42→21:36)
[2023-05-12] MEDS: ATORVASTATIN 20 MG TAB PO SCH (08:42)
[2023-05-12] MEDS: ASPIRIN 81 MG PO SCH (08:42)
[2023-05-12] MEDS: METOPROLOL TARTRATE 25 MG TAB PO SCH (08:42)
[2023-05-12] MEDS ORDERED: TEMAZEPAM 15 MG CAP PO PRN (09:33)
[2023-05-12 10:39] LABS: Glucose,Whole Blood 238 mg/dL (70-110)
[2023-05-12] MEDS ORDERED: RX INFO: IV CONTRAST WAS GIVEN 1 EACH MISC MISCELLANE PRN (12:03)
--- NOTE | 2023-05-12 12:03 | P.PN ---
Subjective Progress Note Date: 05/12/23 05/13/2023, patient is being seen for follow-up. The patient was hospitalized for an acute stroke exacerbation. Patient presented with worsening shortness of breath. Chest x-ray was unremarkable and the patient's procalcitonin level was not elevated. The patient is currently on 3 L of oxygen by nasal cannula. Patient is on bronchodilators. The patient is on systemic steroids. The patient denies having any chest pain. No fever. No chills.Electrolytes are all within normal limits. He is known to have an FEV1 of 46% predicted at baseline and the patient is also oxygen dependent. He has had previous hospitalization for pseudomonal tracheobronchitis. Sputum sample was again collected. The patient is currently is on no antibiotics. His chest x-ray shows no significant abnormalities in the findings are nonspecific and there is a small right-sided pleural effusion. Objective - Vital Signs Vital signs: Vital Signs Temp 97.7 F 05/12/23 07:08 Pulse 76 05/12/23 11:48 Resp 19 05/12/23 07:40 BP 156/69 05/12/23 07:08 Pulse Ox 99 05/12/23 07:08 FiO2 Intake & Output 05/11/23 05/12/23 05/12/23 18:59 06:59 18:59 Other: # Voids 4 2 2 - Exam GENERAL EXAM: Alert, pleasant 77-year-old male, on 3 L nasal cannula, fairly comfortable in no apparent distress. HEAD: Normocephalic. EYES: Normal reaction of pupils, equal size. NOSE: Clear with pink turbinates. THROAT: No erythema or exudates. NECK: No masses, no JVD. CHEST: No chest wall deformity. LUNGS: Equal air entry with bilateral end expiratory wheeze, diminished. CVS: S1 and S2 normal with no audible murmur, regular rhythm. ABDOMEN: No hepatosplenomegaly, normal bowel sounds, no guarding or rigidity. SPINE: No scoliosis or deformity SKIN: No rashes CENTRAL NERVOUS SYSTEM: No focal deficits, tone is normal in all 4 extremities. EXTREMITIES: There is no peripheral edema. No clubbing, no cyanosis. Peripheral pulses are intact. - Labs CBC & Chem 7: 05/10/23 07:01 05/10/23 07:01 Labs: Abnormal Lab Results - Last 24 Hours (Table) 05/11/23 05/11/23 05/12/23 Range/Units 16:42 20:00 04:25 POC Glucose (mg/dL) 232 H 301 H (70-110) mg/dL Hemoglobin A1c 6.7 H (<=6.0) % 05/12/23 05/12/23 Range/Units 06:09 10:38 POC Glucose (mg/dL) 187 H 238 H (70-110) mg/dL Hemoglobin A1c (<=6.0) % Microbiology - Last 24 Hours (Table) 05/10/23 08:19 Gram Stain - Final Sputum Sputum Culture - Final 05/10/23 10:20 Blood Culture - Preliminary Blood 05/10/23 10:35 Blood Culture - Preliminary Blood Assessment and Plan Plan: Acute COPD exacerbation with secondary shortness of breath, slightly improved compared to yesterday. Awaiting CAT scan of the chest. Chronic COPD with an FEV1 of 46% of predicted Chronic hypoxic respiratory failure [id number] smoking history Hyperlipidemia Chronic anxiety Chronic osteoarthritis Previous history of SVT Patient has history of pseudomonal tracheobronchitis Chronic smoker Plan There are some bilateral perihilar opacities. Exact significance is not clear. The patient is a chronic smoker. We'll do a CT Of the chest with contrast. Agree on the current treatment Continue bronchodilators Continue steroids Procalcitonin level is not elevated and chest x-ray findings are nonspecific Will continue to follow
--- NOTE | 2023-05-12 14:34 | CT ---
EXAMINATION TYPE: CT chest w con CT DLP: 326 mGycm, Automated exposure control for dose reduction was used. DATE OF EXAM: 05/12/2023 1:56 PM COMPARISON: 07/24/2018 CLINICAL INDICATION:Male, 77 years old with history of Marilyn pneumonia, perihilar opacities, rule out mal; PHH, Pneumonia, perihilar opacities, rule out malignancy TECHNIQUE: Multiple axial images were obtained through the chest. Sagittal and coronal reformats were created for review. Contrast used:100 ml mL of Isovue 300 with IV Contrast (None if empty) Oral contrast used: (None if empty) FINDINGS: LUNGS/ PLEURA: Severe centrilobular emphysema changes in the lung apices. Scattered areas of scarring /atelectasis. No focal consolidation or pneumothorax. No pleural effusion. Scattered neural thickenin g not significantly changed from 2019 with calcification most pronounced on the diaphragm pleura on t he left and posterior medial aspect on the right. AIRWAY: Patent and unremarkable. HEART: The heart is enlarged for size. Aortic valve leaflet calcifications as well as coronary artery cusp patient's are present. Lipomatous hypertrophy of interatrial septum. MEDIASTINUM: No gross evidence of adenopathy. VASCULATURE: No aortic aneurysm. MUSCULOSKELETAL: Moderate degeneration changes throughout the spine with osteophyte formation and dis c space narrowing.. SOFT TISSUES/LYMPH NODES: Unremarkable. LOWER NECK: No significant findings. UPPER ABDOMEN: Bilateral simple appearing renal cysts. The gallbladder is not visualized. IMPRESSION: 1. No perihilar mass visualized. 2. Severe emphysema changes. 3. Pleural thickening and scattered pleural calcifications correlate for history of asbestos exposur e. Findings not significantly changed compared to 2019. 4. Cardiomegaly with lipomatous hypertrophy of interatrial septum. Follow up recommendations for incidental pulmonary nodules, if there are any, are per [employer] or [employer].
[2023-05-12 16:56] LABS: Glucose,Whole Blood 402 mg/dL (70-110)
[2023-05-12 20:57] LABS: Glucose,Whole Blood 301 mg/dL (70-110)
[2023-05-12] MEDS: SENNOSIDES-DOCUSATE SODIUM 1 EACH TAB PO SCH (21:55)
[2023-05-13] MEDS: IPRATROPIUM-ALBUTEROL 3 ML NEB INHALATION SCH ×6 (00:29→20:59)
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
[2023-05-13 05:38] LABS: Glucose,Whole Blood 192 mg/dL (70-110)
[2023-05-13] MEDS: methylPREDNISolone SOD SUCCI 125 MG/2 ML VIAL IV SCH ×4 (05:45→22:48)
[2023-05-13] MEDS: INSULIN ASPART (NovoLOG) 100 UNIT/ML VIAL SQ SCH ×4 (05:45→22:47)
[2023-05-13] MEDS: IBUPROFEN 800 MG TAB PO PRN (05:50)
[2023-05-13] MEDS: SYMBICORT 160-4.5 MCG INHALER INHALATION SCH ×2 (08:25→20:59)
[2023-05-13] MEDS: METOPROLOL TARTRATE 25 MG TAB PO SCH (08:44)
[2023-05-13] MEDS: ASPIRIN 81 MG PO SCH (08:44)
[2023-05-13] MEDS: ATORVASTATIN 20 MG TAB PO SCH (08:44)
[2023-05-13] MEDS: SENNOSIDES-DOCUSATE SODIUM 1 EACH TAB PO SCH (08:44)
[2023-05-13] MEDS: FAMOTIDINE 20 MG/2 ML VIAL IV SCH ×2 (08:45→22:48)
[2023-05-13] MEDS: NICOTINE 21MG/24HR PATCH TRANSDERM SCH (08:45)
[2023-05-13] MEDS: HEPARIN SODIUM,PORCINE 5,000 UNIT/ML 1 ML VIAL SQ SCH ×2 (08:45→17:48)
[2023-05-13 10:44] LABS: Glucose,Whole Blood 247 mg/dL (70-110)
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
--- NOTE | 2023-05-13 13:29 | P.PN ---
Subjective Progress Note Date: 05/13/23 05/13/2023, patient is being seen for follow-up. The patient was hospitalized for an acute stroke exacerbation. Patient presented with worsening shortness of breath. Chest x-ray was unremarkable and the patient's procalcitonin level was not elevated. The patient is currently on 3 L of oxygen by nasal cannula. Patient is on bronchodilators. The patient is on systemic steroids. The patient denies having any chest pain. No fever. No chills.Electrolytes are all within normal limits. He is known to have an FEV1 of 46% predicted at baseline and the patient is also oxygen dependent. He has had previous hospitalization for pseudomonal tracheobronchitis. Sputum sample was again collected. The patient is currently is on no antibiotics. His chest x-ray shows no significant abnormalities in the findings are nonspecific and there is a small right-sided pleural effusion. On today's evaluation of 05/13/2023, the patient is being seen for a follow-up. Doing well. Less short of breath compared to yesterday. CAT scan of the chest was done that showed no evidence of any pneumonia or lung masses. There was extensive emphysema with upper lobe predominance and the right more than left. The patient is having some insomnia related to systemic steroids. I would suggest adding ambulating continue the steroids for another 24 hours and the patient is slowly benefiting from the treatment. No new complaints otherwise. Objective - Vital Signs Vital signs: Vital Signs Temp 98.3 F 05/13/23 07:12 Pulse 76 05/13/23 08:38 Resp 20 05/13/23 07:12 BP 122/67 05/13/23 07:12 Pulse Ox 96 05/13/23 07:12 FiO2 Intake & Output 05/12/23 05/13/23 05/13/23 18:59 06:59 18:59 Intake Total 450 Balance 450 Intake: Oral 450 Other: # Voids 3 - Exam GENERAL EXAM: Alert, pleasant 77-year-old male, on 3 L nasal cannula, fairly comfortable in no apparent distress. HEAD: Normocephalic. EYES: Normal reaction of pupils, equal size. NOSE: Clear with pink turbinates. THROAT: No erythema or exudates. NECK: No masses, no JVD. CHEST: No chest wall deformity. LUNGS: Equal air entry with bilateral end expiratory wheeze, diminished. CVS: S1 and S2 normal with no audible murmur, regular rhythm. ABDOMEN: No hepatosplenomegaly, normal bowel sounds, no guarding or rigidity. SPINE: No scoliosis or deformity SKIN: No rashes CENTRAL NERVOUS SYSTEM: No focal deficits, tone is normal in all 4 extremities. EXTREMITIES: There is no peripheral edema. No clubbing, no cyanosis. Peripheral pulses are intact. - Labs CBC & Chem 7: 05/10/23 07:01 05/10/23 07:01 Labs: Abnormal Lab Results - Last 24 Hours (Table) 05/12/23 05/12/23 05/13/23 Range/Units 16:55 20:56 05:37 POC Glucose (mg/dL) 402 H 301 H 192 H (70-110) mg/dL 05/13/23 Range/Units 10:43 POC Glucose (mg/dL) 247 H (70-110) mg/dL Microbiology - Last 24 Hours (Table) 05/10/23 10:20 Blood Culture - Preliminary Blood 05/10/23 10:35 Blood Culture - Preliminary Blood 05/10/23 08:19 Gram Stain - Final Sputum Sputum Culture - Final Assessment and Plan Plan: Acute COPD exacerbation with secondary shortness of breath, slightly improved compared to yesterday. Computed tomography scan of the chest was completed and it showed no evidence of pneumonia. There is extensive emphysema with upper lobe predominance right more than left. Slow but ongoing clinical improvement with systemic steroids Chronic COPD with an FEV1 of 46% of predicted Chronic hypoxic respiratory failure [id number] smoking history Hyperlipidemia Chronic anxiety Chronic osteoarthritis Previous history of SVT Patient has history of pseudomonal tracheobronchitis Chronic smoker Plan I reviewed the CAT scan of the chest and extend the findings with the patient Continue IV Solu-Medrol for another 24 hours Add Ambien for insomnia to be taken at bedtime at 10 mg Agree on the current treatment Continue bronchodilators Continue steroids Procalcitonin level is not elevated and chest x-ray findings are nonspecific Will continue to follow
[2023-05-13] MEDS ORDERED: MAGNESIUM HYDROXIDE 2,400 MG/30 ML CUP PO PRN (16:20)
[2023-05-13 16:50] LABS: Glucose,Whole Blood 308 mg/dL (70-110)
[2023-05-13 20:55] LABS: Glucose,Whole Blood 274 mg/dL (70-110)
[2023-05-13] MEDS ORDERED: ZOLPIDEM 5 MG TAB PO SCH (21:00)
[2023-05-14] MEDS: IPRATROPIUM-ALBUTEROL 3 ML NEB INHALATION SCH ×4 (01:03→12:04)
[2023-05-14 05:30] LABS: Glucose,Whole Blood 201 mg/dL (70-110)
[2023-05-14] MEDS: methylPREDNISolone SOD SUCCI 125 MG/2 ML VIAL IV SCH (06:00)
[2023-05-14] MEDS: INSULIN ASPART (NovoLOG) 100 UNIT/ML VIAL SQ SCH ×2 (06:00→12:19)
[2023-05-14 08:24] VITALS: BP 154/66; RESP 20; TEMP 97.6
[2023-05-14] MEDS: SYMBICORT 160-4.5 MCG INHALER INHALATION SCH (08:27)
[2023-05-14 08:39] LABS: HGB 12.1 g/dL (13.0-17.0); MCHC 31.8 g/dL (32.0-37.0); MCV 91.1 FL (80.0-97.0); Mean Platelet Volume 11.5 FL (9.5-12.2); NRBC Per 100 WBC 0 X 10*3/uL (0.00-0.01); Platelet Count 211 X 10*3/uL (140-440); RBC 4.17 X 10*6/uL (4.40-5.60); RDW 16.1 % (11.5-14.5); WBC 12.21 X 10*3/uL (4.50-10.00)
[2023-05-14] MEDS: ATORVASTATIN 20 MG TAB PO SCH (09:22)
[2023-05-14] MEDS: NICOTINE 21MG/24HR PATCH TRANSDERM SCH (09:22)
[2023-05-14] MEDS: ASPIRIN 81 MG PO SCH (09:22)
[2023-05-14] MEDS: HEPARIN SODIUM,PORCINE 5,000 UNIT/ML 1 ML VIAL SQ SCH (09:22)
[2023-05-14] MEDS: METOPROLOL TARTRATE 25 MG TAB PO SCH (09:22)
[2023-05-14] MEDS: SENNOSIDES-DOCUSATE SODIUM 1 EACH TAB PO SCH (09:26)
[2023-05-14 09:48] LABS: Blood Urea Nitrogen 32.2 mg/dL (9.0-27.0); C Reactive Protein <0.30 mg/dL (0.00-0.80); Calcium 9.1 mg/dL (8.7-10.3); Carbon Dioxide 24.1 mmol/L (21.6-31.8); Chloride 104 mmol/L (96-109); Glucose 201 mg/dL (70-110); Potassium 5.1 mmol/L (3.5-5.5); Sodium 139 mmol/L (135-145)
[2023-05-14] MEDS: FAMOTIDINE 20 MG/2 ML VIAL IV SCH (10:02)
[2023-05-14] MEDS ORDERED: predniSONE 20 MG TAB PO SCH (11:00)
[2023-05-14 11:42] LABS: Glucose,Whole Blood 261 mg/dL (70-110)
[2023-05-14 12:11] VITALS: PULSE 76
--- NOTE | 2023-05-14 12:26 | P.DS ---
Providers Date of admission: 05/12/23 06:02 Expected date of discharge: 05/14/23 Attending physician: Rolly Hunt MD Consults: 05/10/23 09:29 Consult Physician Urgent Consulting Provider: Jeremie Suárez Consult Reason/Comments: COPD exacerbation, oxygen dependent Do you want consulting provider notified?: Yes Primary care physician: [facility] Course: 77 years old male with past medical history of COPD and chronic hypoxic respiratory failure on 3 L oxygen via nasal cannula Presents because of worsening dyspnea of one-day duration, patient is been having dyspnea since last Friday and he wanted to see his surgeon chief Dr. Carpenter who gave him oral prednisone 5 daysYesterday there was a snowstorm and power went off, and he has to get to to his car to get his oxygen. His dyspnea got worse on the top of his chronic coughing and yellow phlegm. His and the 3 L oxygen via nasal cannula He smokes 1 pack per day and he was counseled extensively to quit at this time he is interested. He drinks alcohol/whiskey once a week. No illicit drugs. * Labs show an unremarkable CBC, INR, BMP, liver enzymes. BNP is 659 Troponin is -0.018. Influenza A and type B, RSV, SARS (coronavirus) are and detected EKG showing normal sinus rhythm at [address]-T changes and QTC 372 Chest x-ray reviewed by myself shows COPD changes with no pneumonia. 05/11/2023 his breathing is improving on IV Solu Medrol 60 mg No significant coughingHis current through the third oxygen via nasal cannula Xanax when necessary added for anxiety 05/12/2023 Patient breathing improving since admission but is not back to normal Patient still short of breath while at rest or with minimal exertion no chest pain. No much coughing up phlegm. Patient with severe emphysema seen on CT of the chest Continue with IV Solu-Medrol 05/13/2023: Patient seen and evaluated bedside, patient does complain of shortness of breath, patient tried to remove oxygen. We'll follow-up on serum chemistry and CBC. HbA1c 6.7 05/14/2023: Patient seen and evaluated bedside, patient states breathing has improved requesting discharge. Patient seen by pulmonary medicine and bedside, patient to discharge home. CRP within normal limits PHYSICAL EXAMINATION: GENERAL: The patient is alert and oriented x3, nasal cannula in place, appears chronically ill HEENT: Pupils are round and equally reacting to light. EOMI. No scleral icterus. No conjunctival pallor. Normocephalic, atraumatic. No pharyngeal erythema. No thyromegaly. CARDIOVASCULAR: S1 and S2 present. No murmurs, rubs, or gallops. PULMONARY: Decreased breath sounds bilaterally no use ofaccesorry muscle ABDOMEN: Soft, nontender, nondistended, normoactive bowel sounds. No palpable organomegaly. MUSCULOSKELETAL: No joint swelling or deformity. EXTREMITIES: No cyanosis, clubbing, or pedal edema. NEUROLOGICAL: Gross neurological examination did not reveal any focal deficits. 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 * In regards to hypertension continue metoprolol * Continue nicotine patch * Given ambien for insomnia Plan - Discharge Summary Discharge Rx Participant: Yes New Discharge Prescriptions: New Nicotine 21Mg/24Hr Patch [Habitrol] 1 patch TRANSDERM DAILY 15 Days #15 patch Zolpidem [Ambien] 5 mg PO HS 15 Days #15 tab Continue Atorvastatin [Lipitor] 20 mg PO DAILY Aspirin 81 mg PO DAILY Budesonide-Formot 160-4.5 Mcg [Symbicort 160-4.5 Mcg Inhaler] 2 puff INHA LATION RT-BID Metoprolol Tartrate [Lopressor] 25 mg PO DAILY Ibuprofen [Motrin] 800 mg PO BID PRN PRN Reason: Pain Ipratropium-Albuterol Nebulize [Duoneb 0.5 mg-3 mg/3 ml Soln] 3 ml INHALATION RT-Q4H #100 each Theophylline 24 Hour [Sonido-24] 400 mg PO DIRECTED Albuterol Sulfate [Albuterol Sulfate Hfa] 2 puff PO RT-Q4H PRN PRN Reason: Shortness Of Breath Acetaminophen Tab [Tylenol] 650 mg PO Q6HR PRN tab PRN Reason: Mild Pain Or Fever > 100.5 Changed predniSONE See Taper PO DIRECTED 30 Days #30 tab Discontinued Levofloxacin [Levaquin] 500 mg PO DAILY predniSONE 20 mg PO DIRECTED Discharge Medication List Aspirin 81 mg PO DAILY 07/17/16 [History] Atorvastatin [Lipitor] 20 mg PO DAILY 07/17/16 [History] Budesonide-Formot 160-4.5 Mcg [Symbicort 160-4.5 Mcg Inhaler] 2 puff INHALATION RT-BID 07/17/16 [History] Metoprolol Tartrate [Lopressor] 25 mg PO DAILY 07/23/18 [History] Ibuprofen [Motrin] 800 mg PO BID PRN 03/24/19 [History] Albuterol Sulfate [Albuterol Sulfate Hfa] 2 puff PO RT-Q4H PRN 04/13/23 [History] Theophylline 24 Hour [Sonido-24] 400 mg PO DIRECTED 04/13/23 [History] Acetaminophen Tab [Tylenol] 650 mg PO Q6HR PRN tab 04/18/23 [Rx] Ipratropium-Albuterol Nebulize [Duoneb 0.5 mg-3 mg/3 ml Soln] 3 ml INHALATION RT-Q4H #100 each 04/18/23 [Rx] Nicotine 21Mg/24Hr Patch [Habitrol] 1 patch TRANSDERM DAILY 15 Days #15 patch 05/14/23 [Rx] Zolpidem [Ambien] 5 mg PO HS 15 Days #15 tab 05/14/23 [Rx] predniSONE See Taper PO DIRECTED 30 Days #30 tab 05/14/23 [Rx] Follow up Appointment(s)/Referral(s): Nursing,[facility] [NON-STAFF] - As Needed Britni Peres MD [Primary Care Provider] - 1-2 days Discharge Disposition: HOME SELF-CARE
--- NOTE | 2023-05-14 14:49 | P.PN ---
Subjective Progress Note Date: 05/14/23 05/13/2023, patient is being seen for follow-up. The patient was hospitalized for an acute stroke exacerbation. Patient presented with worsening shortness of breath. Chest x-ray was unremarkable and the patient's procalcitonin level was not elevated. The patient is currently on 3 L of oxygen by nasal cannula. Patient is on bronchodilators. The patient is on systemic steroids. The patient denies having any chest pain. No fever. No chills.Electrolytes are all within normal limits. He is known to have an FEV1 of 46% predicted at baseline and the patient is also oxygen dependent. He has had previous hospitalization for pseudomonal tracheobronchitis. Sputum sample was again collected. The patient is currently is on no antibiotics. His chest x-ray shows no significant abnormalities in the findings are nonspecific and there is a small right-sided pleural effusion. On today's evaluation of 05/13/2023, the patient is being seen for a follow-up. Doing well. Less short of breath compared to yesterday. CAT scan of the chest was done that showed no evidence of any pneumonia or lung masses. There was extensive emphysema with upper lobe predominance and the right more than left. The patient is having some insomnia related to systemic steroids. I would suggest adding ambulating continue the steroids for another 24 hours and the patient is slowly benefiting from the treatment. No new complaints otherwise. On 05/14/2023, the patient is feeling well. He slept much better after he was given Ambien overnight. No new complaints. His taken the steroids without any major side effects. He is on IV Solu-Medrol. No chest pain. No cough or sputum production. He is chronically shortness of breath. Nevertheless, the acute COPD exacerbation seems to have subsided. CAT scan of the chest was done and showed no evidence of any pneumonia or malignancy. No new labs are availa ble from today. Objective - Vital Signs Vital signs: Vital Signs Temp 97.6 F 05/14/23 07:36 Pulse 72 05/14/23 08:41 Resp 20 05/14/23 07:36 BP 154/66 05/14/23 07:36 Pulse Ox 97 05/14/23 07:36 FiO2 Intake & Output 05/13/23 05/14/23 05/14/23 18:59 06:59 18:59 Output Total 750 Balance -750 Output: Urine 750 Other: Voiding Method Urinal # Voids 2 2 - Exam GENERAL EXAM: Alert, pleasant 77-year-old male, on 3 L nasal cannula, fairly comfortable in no apparent distress. HEAD: Normocephalic. EYES: Normal reaction of pupils, equal size. NOSE: Clear with pink turbinates. THROAT: No erythema or exudates. NECK: No masses, no JVD. CHEST: No chest wall deformity. LUNGS: Equal air entry with bilateral end expiratory wheeze, diminished. CVS: S1 and S2 normal with no audible murmur, regular rhythm. ABDOMEN: No hepatosplenomegaly, normal bowel sounds, no guarding or rigidity. SPINE: No scoliosis or deformity SKIN: No rashes CENTRAL NERVOUS SYSTEM: No focal deficits, tone is normal in all 4 extremities. EXTREMITIES: There is no peripheral edema. No clubbing, no cyanosis. Peripheral pulses are intact. - Labs CBC & Chem 7: 05/14/23 04:33 05/14/23 04:33 Labs: Abnormal Lab Results - Last 24 Hours (Table) 05/13/23 05/13/23 05/14/23 Range/Units 16:49 20:50 04:33 WBC 12.21 H (4.50-10.00) X 10*3/uL RBC 4.17 L (4.40-5.60) X 10*6/uL Hgb 12.1 L (13.0-17.0) g/dL Hct 38.0 L (39.6-50.0) % MCHC 31.8 L (32.0-37.0) g/dL RDW 16.1 H (11.5-14.5) % BUN (9.0-27.0) mg/dL BUN/Creatinine Ratio (12.00-20.00) Ratio Glucose (70-110) mg/dL POC Glucose (mg/dL) 308 H 274 H (70-110) mg/dL 05/14/23 05/14/23 Range/Units 04:33 05:28 WBC (4.50-10.00) X 10*3/uL RBC (4.40-5.60) X 10*6/uL Hgb (13.0-17.0) g/dL Hct (39.6-50.0) % MCHC (32.0-37.0) g/dL RDW (11.5-14.5) % BUN 32.2 H (9.0-27.0) mg/dL BUN/Creatinine Ratio 32.20 H (12.00-20.00) Ratio Glucose 201 H (70-110) mg/dL POC Glucose (mg/dL) 201 H (70-110) mg/dL Microbiology - Last 24 Hours (Table) 05/10/23 10:20 Blood Culture - Preliminary Blood 05/10/23 10:35 Blood Culture - Preliminary Blood 05/10/23 08:19 Legionella Culture - Preliminary Sputum Assessment and Plan Plan: Acute COPD exacerbation with secondary shortness of breath, slightly improved compared to yesterday. Computed tomography scan of the chest was completed and it showed no evidence of pneumonia. There is extensive emphysema with upper lobe predominance right more than left. Slow but ongoing clinical improvement with systemic steroids Chronic COPD with an FEV1 of 46% of predicted Chronic hypoxic respiratory failure [id number] smoking history Hyperlipidemia Chronic anxiety Chronic osteoarthritis Previous history of SVT Patient has history of pseudomonal tracheobronchitis Chronic smoker Plan Clinically the patient is improved and he seems to be back to baseline. The patient will be taken off the IV Solu-Medrol started on a prednisone burst taper. He'll be given a short course of Ambien for the next 10 days to counteract insomnia created by systemic steroids. The patient has home O2. She is going to be discharged home on Symbicort, theophylline, prednisone about treatments [id number] and a prednisone burst taper. Procalcitonin level is not elevated and chest x-ray findings are nonspecific Will continue to follow with us in the pulmonary office on outpatient basis.
== END 2023-05-14 13:21 | disposition home or self-care (01) | DRG 190 ==
LOC: EC 06:31 → 4SSUR 09:40 → OBSVTOIN 05-12 06:02
PROVIDERS: ADMIT Internal Medicine; ATTEND Internal Medicine
DX: J44.1 Chronic obstructive pulmonary disease with (acute) exacerbation (principal); J96.21 Acute and chronic respiratory failure with hypoxia; M19.90 Unspecified osteoarthritis, unspecified site; J43.9 Emphysema, unspecified; I25.2 Old myocardial infarction; G47.00 Insomnia, unspecified; F41.1 Generalized anxiety disorder; I10 Essential (primary) hypertension; T38.0X5A Adverse effect of glucocorticoids and synthetic analogues, initial encounter; F17.210 Nicotine dependence, cigarettes, uncomplicated; N40.0 Benign prostatic hyperplasia without lower urinary tract symptoms; Z87.01 Personal history of pneumonia (recurrent); Z79.51 Long term (current) use of inhaled steroids; Z77.090 Contact with and (suspected) exposure to asbestos; Z79.84 Long term (current) use of oral hypoglycemic drugs; Z86.73 Personal history of transient ischemic attack (TIA), and cerebral infarction without residual deficits; Z96.643 Presence of artificial hip joint, bilateral; Z99.81 Dependence on supplemental oxygen; Z98.41 Cataract extraction status, right eye; X58.XXXA Exposure to other specified factors, initial encounter; Z11.52 Encounter for screening for COVID-19; Z86.79 Personal history of other diseases of the circulatory system; Z79.899 Other long term (current) drug therapy; Z79.82 Long term (current) use of aspirin; E78.5 Hyperlipidemia, unspecified; E66.9 Obesity, unspecified; Z71.6 Tobacco abuse counseling
CPT/HCPCS: 36415; 71046; 71260; 80048; 80053; 83036; 83605; 83880; 84145; 84484; 85025; 85027; 85610; 85730; 86140; 87040; 87070; 87205; 87449; 87636; 93005; 94640; 94760; 96365; 96375; 99285; 99406

== ENCOUNTER 2023-06-06 14:36 | Inpatient (IN) | payer MEDICARE ==
--- NOTE | 2023-06-06 14:59 | ED ---
General Adult HPI - General Chief complaint: Shortness of Breath Stated complaint: GIL Time Seen by Provider: 06/06/23 14:41 Source: patient, RN notes reviewed, old records reviewed Mode of arrival: ambulatory Limitations: no limitations - History of Present Illness Initial comments: 77-year-old male history of COPD, oxygen dependent normally on 3 L. Presents with worsening cough and dyspnea. Patient states cough is productive of yellow sputum. Denies fever. Denies send chest pain. Denies lower extremity pain or swelling. Patient does admit to some abdominal bloating and constipation. No significant abdominal pain. Patient reports that he had abstained from cigarettes for the past several weeks after recent admission but began smoking again over the past several days. - Related Data Home Medications Medication Instructions Recorded Confirmed Aspirin 81 mg PO DAILY 07/17/16 06/06/23 Atorvastatin [Lipitor] 20 mg PO DAILY 07/17/16 06/06/23 Budesonide-Formot 160-4.5 Mcg 2 puff INHALATION RT-BID 07/17/16 06/06/23 [Symbicort 160-4.5 Mcg Inhaler] Metoprolol Tartrate [Lopressor] 25 mg PO DAILY 07/23/18 06/06/23 Ibuprofen [Motrin] 800 mg PO BID PRN 03/24/19 06/06/23 Albuterol Sulfate [Albuterol 2 puff PO RT-Q4H PRN 04/13/23 06/06/23 Sulfate Hfa] Theophylline 24 Hour [Sonido-24] 400 mg PO DAILY 04/13/23 06/06/23 Zolpidem [Ambien] 10 mg PO HS PRN 06/06/23 06/06/23 Previous Rx's Medication Instructions Recorded Acetaminophen Tab [Tylenol] 650 mg PO Q6HR PRN tab 04/18/23 Ipratropium-Albuterol Nebulize 3 ml INHALATION RT-Q4H #100 each 04/18/23 [Duoneb 0.5 mg-3 mg/3 ml Soln] Nicotine 21Mg/24Hr Patch [Habitrol] 1 patch TRANSDERM DAILY 15 Days 05/14/23 #15 patch Allergies Allergy/AdvReac Type Severity Reaction Status Date / Time Penicillins Allergy Unknown Verified 06/06/23 15:46 Review of Systems ROS Statement: Those systems with pertinent positive or pertinent negative responses have been documented in the HPI. ROS Other: All systems not noted in ROS Statement are negative. Past Medical History Past Medical History: Chest Pain / Angina, COPD, Diabetes Mellitus, Hyperlipidemia, Myocardial Infarction (UT), Osteoarthritis (OA), Pneumonia, Prostate Disorder, Supraventricular Tachycardia (SVT) Additional Past Medical History / Comment(s): Chronic hypoxic respiratory failure with home oxygen pt mostly just wears at night, past acute hypoxic respiratory failure requiring bipap, newly diagnosed NIDDM type II, BPH, UTI Last Myocardial Infarction Date:: 2008 History of Any Multi-Drug Resistant Organisms: None Reported Past Surgical History: Back Surgery, Heart Catheterization, Hernia Repair, Joint Replacement, Orthopedic Surgery Additional Past Surgical History / Comment(s): microlaryngoscopy w/ lt vocal cord bx-neg, bronch-lung bx-neg, lt inguinal hernia, low back surgery, bilateral total hip arthroplasties, bilateral cataracts removed. Past Anesthesia/Blood Transfusion Reactions: No Reported Reaction Past Psychological History: No Psychological Hx Reported Smoking Status: Current every day smoker Past Alcohol Use History: Rare Past Drug Use History: None Reported - Past Family History Mother Family Medical History: COPD, Diabetes Mellitus Father Family Medical History: COPD, Diabetes Mellitus Brother(s) Family Medical History: Cancer Additional Family Medical History / Comment(s): leukemia General Exam Limitations: no limitations General appearance: alert, in no apparent distress Head exam: Present: atraumatic, normocephalic Eye exam: Present: normal appearance, PERRL ENT exam: Present: normal exam Neck exam: Present: normal inspection. Absent: tenderness, meningismus Respiratory exam: Present: respiratory distress, decreased breath sounds. Absent: wheezes Cardiovascular Exam: Present: regular rate, normal rhythm GI/Abdominal exam: Present: soft. Absent: distended, tenderness, guarding Extremities exam: Present: normal inspection, normal capillary refill. Absent: calf tenderness Neurological exam: Present: alert, oriented X3, CN II-XII intact. Absent: motor sensory deficit Skin exam: Present: warm, dry, intact. Absent: cyanosis, diaphoretic Course Vital Signs 06/06/23 14:39 Temperature 98.6 F Pulse Rate 102 H Respiratory 26 H Rate Blood Pressure 164/70 O2 Sat by Pulse 97 Oximetry Medical Decision Making - Medical Decision Making Was pt. sent in by a medical professional or institution (, PA, GR[employer] TECHNICIAN, urgent c are, hospital, or [facility]...) When possible be specific @ -No Did you speak to anyone other than the patient for history (EMS, parent, family, police, friend...)? What history was obtained from this source @ -No Did you review nursing and triage notes (agree or disagree)? Why? @ -I reviewed and agree with nursing and triage notes Were old charts reviewed (outside hosp., previous admission, EMS record, old EKG, old radiological studies, urgent care reports/EKG's, [facility] records)? Report findings @ -No old charts were reviewed Differential Diagnosis (chest pain, altered mental status, abdominal pain women, abdominal pain men, vaginal bleeding, weakness, fever, dyspnea, syncope, headache, dizziness, GI bleed, back pain, seizure, CVA, palpatations, mental health, musculoskeletal)? @ -Not applicable EKG interpreted by me (3pts min.). @Narrow complex rhythm rate of 93, MN interval 187, QRS duration 86, QTc [address] segment elevation. X-rays interpreted by me (1pt min.). @Hest x-ray concerning for developing left lower lobe pneumonia. No pneumothorax. CT interpreted by me (1pt min.). @ -None done U/S interpreted by me (1pt. min.). @ -None done What testing was considered but not performed or refused? (CT, X-rays, U/S, labs)? Why? @ -None What meds were considered but not given or refused? Why? @ -None Did you discuss the management of the patient with other professionals (professionals i.e. , PA, [employer] TECHNICIAN, lab, RT, psych nurse, medical social worker, director of nuclear medicine, teacher, chief analytics officer, binder caser)? Give summary @Case discussed with Abbe cantu for [facility] Was smoking cessation discussed for >3mins.? @ -No Was critical care preformed (if so, how long)? @ -No Were there social determinants of health that impacted care today? How? (Homelessness, low income, unemployed, alcoholism, drug addiction, transportation, low edu. Level, literacy, decrease access to med. care, halfway, rehab)? @ -No Was there de-escalation of care discussed even if they declined (Discuss DNR or withdrawal of care, Hospice)? DNR status @ -No What co-morbidities impacted this encounter? (DM, HTN, Smoking, COPD, CAD, Cancer, CVA, ARF, Chemo, Hep., AIDS, mental health diagnosis, sleep apnea, morbid obesity)? @ -[Oxygen dependent COPD Was patient admitted / discharged? Hospital course, mention meds given and route, prescriptions, significant lab abnormalities, going to OR and other p ertinent info. @ -77-year-old male history of COPD presenting with worsening cough and dyspnea. X-ray concerning for pneumonia. Patient has increased oxygen requirements. He will be admitted for COPD exacerbation with concern for pneumonia. Started on steroids, antibiotics, IV fluids in the emergency department. Admitted to internal medicine. Undiagnosed new problem with uncertain prognosis? @ -No Drug Therapy requiring intensive monitoring for toxicity (Heparin, Nitro, Insulin, Cardizem)? @ -No Were any procedures done? @ -No Diagnosis/symptom? @ -[COPD, pneumonia Acute, or Chronic, or Acute on Chronic? @ -Acute Uncomplicated (without systemic symptoms) or Complicated (systemic symptoms)? @ -[Application Side effects of treatment? @ -[No Exacerbation, Progression, or Severe Exacerbation? @ -No Poses a threat to life or bodily function? How? (Chest pain, USA, UT, pneumonia, PE, COPD, DKA, ARF, appy, cholecystitis, CVA, Diverticulitis, Homicidal, Suicidal, threat to staff... and all critical care pts) @ -Yes, sepsis, respiratory failure - Lab Data Result diagrams: 06/06/23 15:11 06/06/23 15:11 Lab Results 06/06/23 06/06/23 06/06/23 Range/Units 15:11 15:11 15:11 WBC 6.8 (3.8-10.6) k/uL RBC 4.13 L (4.30-5.90) m/uL Hgb 12.7 L (13.0-17.5) gm/dL Hct 37.5 L (39.0-53.0) % MCV 90.9 (80.0-100.0) fL MCH 30.9 (25.0-35.0) pg MCHC 34.0 (31.0-37.0) g/dL RDW 16.6 H (11.5-15.5) % Plt Count 176 (150-450) k/uL MPV 8.3 Neutrophils % 62 % Lymphocytes % 27 % Monocytes % 7 % Eosinophils % 2 % Basophils % 1 % Neutrophils # 4.2 (1.3-7.7) k/uL Lymphocytes # 1.8 (1.0-4.8) k/uL Monocytes # 0.5 (0-1.0) k/uL Eosinophils # 0.1 (0-0.7) k/uL Basophils # 0.0 (0-0.2) k/uL Anisocytosis Slight PT 10.3 (10.0-12.5) sec INR 0.9 (<1.2) APTT 22.3 (22.0-30.0) sec Sodium 141 (137-145) mmol/L Potassium 3.3 L (3.5-5.1) mmol/L Chloride 109 H (98-107) mmol/L Carbon Dioxide 26 (22-30) mmol/L Anion Gap 6 mmol/L BUN 14 (9-20) mg/dL Creatinine 0.81 (0.66-1.25) mg/dL Est GFR (CKD-EPI)AfAm >90 (>60 ml/min/1.73 sqM) Est GFR (CKD-EPI)NonAf 86 (>60 ml/min/1.73 sqM) Glucose 178 H (74-99) mg/dL Plasma Lactic Acid Jakub (0.7-2.0) mmol/L Calcium 9.0 (8.4-10.2) mg/dL Magnesium 1.9 (1.6-2.3) mg/dL Total Bilirubin 0.6 (0.2-1.3) mg/dL AST 16 L (17-59) U/L ALT 19 (4-49) U/L Alkaline Phosphatase 57 (38-126) U/L Total Protein 5.8 L (6.3-8.2) g/dL Albumin 3.6 (3.5-5.0) g/dL Influenza Type A (PCR) (Not Detectd) Influenza Type B (PCR) (Not Detectd) RSV (PCR) (Not Detectd) SARS-CoV-2 (PCR) (Not Detectd) 06/06/23 06/06/23 Range/Units 15:11 15:30 WBC (3.8-10.6) k/uL RBC (4.30-5.90) m/uL Hgb (13.0-17.5) gm/dL Hct (39.0-53.0) % MCV (80.0-100.0) fL MCH (25.0-35.0) pg MCHC (31.0-37.0) g/dL RDW (11.5-15.5) % Plt Count (150-450) k/uL MPV Neutrophils % % Lymphocytes % % Monocytes % % Eosinophils % % Basophils % % Neutrophils # (1.3-7.7) k/uL Lymphocytes # (1.0-4.8) k/uL Monocytes # (0-1.0) k/uL Eosinophils # (0-0.7) k/uL Basophils # (0-0.2) k/uL Anisocytosis PT (10.0-12.5) sec INR (<1.2) APTT (22.0-30.0) sec Sodium (137-145) mmol/L Potassium (3.5-5.1) mmol/L Chloride (98-107) mmol/L Carbon Dioxide (22-30) mmol/L Anion Gap mmol/L BUN (9-20) mg/dL Creatinine (0.66-1.25) mg/dL Est GFR (CKD-EPI)AfAm (>60 ml/min/1.73 sqM) Est GFR (CKD-EPI)NonAf (>60 ml/min/1.73 sqM) Glucose (74-99) mg/dL Plasma Lactic Acid Jakub 1.8 (0.7-2.0) mmol/L Calcium (8.4-10.2) mg/dL Magnesium (1.6-2.3) mg/dL Total Bilirubin (0.2-1.3) mg/dL AST (17-59) U/L ALT (4-49) U/L Alkaline Phosphatase (38-126) U/L Total Protein (6.3-8.2) g/dL Albumin (3.5-5.0) g/dL Influenza Type A (PCR) Not Detected (Not Detectd) Influenza Type B (PCR) Not Detected (Not Detectd) RSV (PCR) Not Detected (Not Detectd) SARS-CoV-2 (PCR) Not Detected (Not Detectd) Disposition Clinical Impression: COPD exacerbation, Community acquired pneumonia Disposition: ADMITTED IP TO THIS HOSP Condition: Stable Is patient prescribed a controlled substance at d/c from ED?: No Referrals: Britni Peres MD [Primary Care Provider] - 1-2 days Time of Disposition: 16:49
[2023-06-06 15:22] LABS: Anisocytosis Slight; Basophils % (A) 1 %; Eosinophils # (A) 0.1 k/uL (0-0.7); Eosinophils % (A) 2 %; HCT 37.5 % (39.0-53.0); HGB 12.7 gm/dL (13.0-17.5); Lymphocytes # (A) 1.8 k/uL (1.0-4.8); Lymphocytes % (A) 27 %; MCH 30.9 pg (25.0-35.0); MCV 90.9 fL (80.0-100.0); Mean Platelet Volume 8.3; Monocytes # (A) 0.5 k/uL (0-1.0); Monocytes % (A) 7 %; Neutrophils # (A) 4.2 k/uL (1.3-7.7); Neutrophils % (A) 62 %; Platelet Count 176 k/uL (150-450); RBC 4.13 m/uL (4.30-5.90); RDW 16.6 % (11.5-15.5); WBC 6.8 k/uL (3.8-10.6)
[2023-06-06 15:30] LABS: INR 0.9 (<1.2); Partial Thromboplastin Time 22.3 sec (22.0-30.0); Prothrombin Time 10.3 sec (10.0-12.5)
[2023-06-06] MEDS: methylPREDNISolone SOD SUCCI 125 MG/2 ML VIAL IV STA (15:31)
[2023-06-06 15:32] LABS: ALT 19 U/L (4-49); AST 16 U/L (17-59); African American GFR (CKD) >90 (>60 ml/min/1.73 sqM); Albumin 3.6 g/dL (3.5-5.0); Alkaline Phosphatase 57 U/L (38-126); Anion Gap 6 mmol/L; Blood Urea Nitrogen 14 mg/dL (9-20); Carbon Dioxide 26 mmol/L (22-30); Chloride 109 mmol/L (98-107); Glucose 178 mg/dL (74-99); Magnesium 1.9 mg/dL (1.6-2.3); Non-African American GFR(CKD) 86 (>60 ml/min/1.73 sqM); Potassium 3.3 mmol/L (3.5-5.1); Sodium 141 mmol/L (137-145); Total Bilirubin 0.6 mg/dL (0.2-1.3); Total Protein 5.8 g/dL (6.3-8.2)
--- NOTE | 2023-06-06 16:13 | XR ---
EXAMINATION TYPE: XR chest 2V DATE OF EXAM: 06/06/2023 3:40 PM CLINICAL INDICATION:Male, 77 years old with history of difficulty breathing; COMPARISON: Chest radiographs from 05/10/2023. TECHNIQUE: XR chest 2V Frontal and lateral views of the chest. FINDINGS: Lungs/Pleura: Perihilar airspace opacities within the left hilum. There is flattening of the diaphrag m with increased lucency of the lungs. No evidence of pneumothorax, pleural effusion or focal consoli dation. Pulmonary vascularity: Pulmonary vascular congestion. Heart/mediastinum: Cardiomediastinal silhouette is enlarged and stable. Musculoskeletal: Degenerative changes of the shoulder joints. IMPRESSION: 1. Left perihilar airspace opacities correlate for pneumonia. 2. COPD changes.
[2023-06-06] MEDS ORDERED: IPRATROPIUM-ALBUTEROL 3 ML NEB INHALATION PRN (16:47)
[2023-06-06] MEDS ORDERED: NALOXONE 0.4 MG/ML 1 ML VIAL IVP PRN (16:47)
[2023-06-06] MEDS: AZITHROMYCIN 500 MG in SODIUM CHLORIDE 0.9% 250 ML IVPB STA (17:02)
[2023-06-06] MEDS: SODIUM CHLORIDE 0.9% 1,000 ML IV SCH (17:02)
[2023-06-06] MEDS: ALBUTEROL NEBULIZED 2.5 MG/3 ML INHALATION STA (17:12)
[2023-06-06] MEDS: IPRATROPIUM-ALBUTEROL 3 ML NEB INHALATION STA (17:12)
[2023-06-06] MEDS: methylPREDNISolone SOD SUCCI 125 MG/2 ML VIAL IV SCH (18:50)
[2023-06-06] MEDS ORDERED: ACETAMINOPHEN TAB 325 MG TAB PO PRN (18:58)
[2023-06-06] MEDS ORDERED: ALBUTEROL NEBULIZED 2.5 MG/3 ML INHALATION PRN (18:58)
[2023-06-06] MEDS ORDERED: DEXTROSE 50% SYRINGE 50 ML IVP PRN ×2 (19:02)
[2023-06-06] MEDS ORDERED: IPRATROPIUM-ALBUTEROL 3 ML NEB INHALATION SCH (20:00)
[2023-06-06 20:10] LABS: Glucose,Whole Blood 311 mg/dL (70-110)
[2023-06-06] MEDS: SYMBICORT 160-4.5 MCG INHALER INHALATION SCH (20:40)
[2023-06-06] MEDS: IPRATROPIUM-ALBUTEROL 3 ML NEB INHALATION SCH (20:40)
[2023-06-06] MEDS ORDERED: INSULIN ASPART (NovoLOG) 100 UNIT/ML VIAL SQ SCH (21:00)
[2023-06-06] MEDS: NICOTINE 21MG/24HR PATCH TRANSDERM SCH (21:27)
[2023-06-06] MEDS: INSULIN ASPART (NovoLOG) 100 UNIT/ML VIAL SQ SCH (21:27)
[2023-06-07 06:02] LABS: Glucose,Whole Blood 224 mg/dL (70-110)
[2023-06-07] MEDS: THEOPHYLLINE 24 HOUR 400 MG CAP.ER.24H PO SCH (09:02)
[2023-06-07] MEDS: METOPROLOL TARTRATE 25 MG TAB PO SCH (09:02)
[2023-06-07] MEDS: ASPIRIN 81 MG PO SCH (09:02)
[2023-06-07] MEDS: ATORVASTATIN 20 MG TAB PO SCH (09:02)
[2023-06-07] MEDS: CEFEPIME 2 GM in SODIUM CHLORIDE 0.9% 100 ML IVPB SCH (10:39)
[2023-06-07 11:15] LABS: Glucose,Whole Blood 316 mg/dL (70-110)
--- NOTE | 2023-06-07 12:06 | P.CNPUL ---
History of Present Illness Consult date: 06/07/23 Reason for consult: dyspnea, COPD History of present illness: On today's evaluation of 06/07/2023, the patient was seen in consultation regarding worsening shortness of breath and COPD exacerbation. The patient was admitted yesterday to the hospital because of increased dyspnea. The patient is known to have COPD and the patient is typically maintained on oxygen 3 L/min nasal cannula. At home, he has been taking a combination of Symbicort and theophylline. Note that his last COPD exacerbation was back in 05/11/2023 at that time the patient required hospitalization. He was also hospitalized on 04/13/2023 for the same and as such, the patient is having frequent exacerbation. An earlier sputum sample that was obtained on 04/13/2023 was positive for Pseudomonas aeruginosa. A CAT scan of the chest that was also done on 05/12/2023 showed emphysema with upper lobe predominance. The emphysematous findings were extensive and was consistent with centrilobular emphysema with scattered areas of scarring and atelectasis without any tumors or lesions. The repeat chest x-ray that was done during this current admission showed possibility of a left left perihilar airspace opacity although I think it is likely chronic. I am going to cover this patient with IV cefepime for now to give the patient a benefit of the doubt. Normal coagulation profile. The viral panel is negative. The labs are all within normal limits with a white cell count of 6.8 and hemoglobin 12.7 and the patient is currently on oxygen at 4 L to maintain a pulse ox of 98%. No altered mentation. No angina. No palpitation. No other complaints otherwise for now. Review of Systems CONSTITUTIONAL: Denies any recent significant weight loss or weight gain. EYES: Denies change in vision. EARS, NOSE, MOUTH, THROAT: Denies headaches, denies sore throat. CARDIOVASCULAR: Denies chest pain, palpitations or syncopal episodes. RESPIRATORY: Positive for shortness of breath, cough, congestion no hemoptysis. GASTROINTESTINAL: Denies change in appetite, denies abdominal pain GENITOURINARY: Denies hematuria, denies infections. MUSKULOSKELETAL: Denies pain, denies swelling. INTEGUMENTARY: Denies rash, denies eczema. NEUROLOGICAL: Denies recent memory loss, no recent seizure activity. PSYCHIATRIC: Denies anxiety, denies depression. HEMATOLOGIC/LYMPHATIC: Denies anemia, denies enlarged lymph nodes. Past Medical History Past Medical History: Chest Pain / Angina, COPD, Diabetes Mellitus, Hyperl ipidemia, Myocardial Infarction (MS), Osteoarthritis (OA), Pneumonia, Prostate Disorder, Supraventricular Tachycardia (SVT) Additional Past Medical History / Comment(s): Chronic hypoxic respiratory failure with home oxygen pt mostly just wears at night, past acute hypoxic re spiratory failure requiring bipap, newly diagnosed NIDDM type II, BPH, UTI Last Myocardial Infarction Date:: 2008 History of Any Multi-Drug Resistant Organisms: None Reported Past Surgical History: Back Surgery, Heart Catheterization, Hernia Repair, Joint Replacement, Orthopedic Surgery Additional Past Surgical History / Comment(s): microlaryngoscopy w/ lt vocal cord bx-neg, bronch-lung bx-neg, lt inguinal hernia, low back surgery, bilateral total hip arthroplasties, bilateral cataracts removed. Past Anesthesia/Blood Transfusion Reactions: No Reported Reaction Past Psychological History: No Psychological Hx Reported Additional Psychological History / Comment(s): Pt lives in own home with his frank that has 3 steps into house has 1 cat, 1 dog. 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 Past heavy etoh use but quit heavy drinking 20 years ago now only drinks once or twice a week when he plays cards and less than 14 drinks/week. Past Drug Use History: None Reported - Past Family History Mother Family Medical History: COPD, Diabetes Mellitus Father Family Medical History: COPD, Diabetes Mellitus Brother(s) Family Medical History: Cancer Additional Family Medical History / Comment(s): leukemia Medications and Allergies Home Medications Medication Instructions Recorded Confirmed Type Aspirin 81 mg PO DAILY 07/17/16 06/06/23 History Atorvastatin [Lipitor] 20 mg PO DAILY 07/17/16 06/06/23 History Budesonide-Formot 160-4.5 Mcg 2 puff INHALATION RT-BID 07/17/16 06/06/23 History [Symbicort 160-4.5 Mcg Inhaler] Metoprolol Tartrate [Lopressor] 25 mg PO DAILY 07/23/18 06/06/23 History Ibuprofen [Motrin] 800 mg PO BID PRN 03/24/19 06/06/23 History Albuterol Sulfate [Albuterol 2 puff PO RT-Q4H PRN 04/13/23 06/06/23 History Sulfate Hfa] Theophylline 24 Hour [Sonido-24] 400 mg PO DAILY 04/13/23 06/06/23 History Acetaminophen Tab [Tylenol] 650 mg PO Q6HR PRN tab 04/18/23 06/06/23 Rx Ipratropium-Albuterol Nebulize 3 ml INHALATION RT-Q4H #100 each 04/18/23 06/06/23 Rx [Duoneb 0.5 mg-3 mg/3 ml Soln] Nicotine 21Mg/24Hr Patch [Habitrol] 1 patch TRANSDERM DAILY 15 Days 05/14/23 06/06/23 Rx #15 patch Zolpidem [Ambien] 10 mg PO HS PRN 06/06/23 06/06/23 History Allergies Allergy/AdvReac Type Severity Reaction Status Date / Time Penicillins Allergy Unknown Verified 06/06/23 15:46 Physical Exam Vitals: Vital Signs Temp Pulse Pulse Resp BP BP Pulse Ox 06/07/23 08:26 84 06/07/23 08:15 84 98 06/07/23 07:37 98.9 F 87 18 126/61 95 06/07/23 04:06 87 06/07/23 03:58 85 06/07/23 02:00 98.0 F 72 115/64 98 06/06/23 20:53 84 06/06/23 20:42 82 06/06/23 20:00 97.8 F 79 152/72 97 06/06/23 18:06 98.9 F 78 20 141/78 97 06/06/23 17:21 82 18 06/06/23 17:12 79 18 06/06/23 14:39 98.6 F 102 H 26 H 164/70 97 Intake and Output 06/06/23 06/07/23 06/07/23 22:59 06:59 14:59 Other: Weight 77.111 kg GENERAL EXAM: Alert, pleasant 77-year-old male, on 4 L nasal cannula, fairly comfortable in no apparent distress. HEAD: Normocephalic. EYES: Normal reaction of pupils, equal size. NOSE: Clear with pink turbinates. THROAT: No erythema or exudates. NECK: No masses, no JVD. CHEST: No chest wall deformity. LUNGS: Equal air entry with bilateral end expiratory wheeze, diminished. CVS: S1 and S2 normal with no audible murmur, regular rhythm. ABDOMEN: No hepatosplenomegaly, normal bowel sounds, no guarding or rigidity. SPINE: No scoliosis or deformity SKIN: No rashes CENTRAL NERVOUS SYSTEM: No focal deficits, tone is normal in all 4 extremities. EXTREMITIES: There is no peripheral edema. No clubbing, no cyanosis. Peripher al pulses are intact. Results - Laboratory Findings CBC and BMP: 06/06/23 15:11 06/06/23 15:11 PT/INR, D-dimer PT 10.3 sec (10.0-12.5) 06/06/23 15:11 INR 0.9 (<1.2) 06/06/23 15:11 Abnormal lab findings: Abnormal Labs 06/06/23 06/06/23 06/06/23 15:11 15:11 20:06 RBC 4.13 L Hgb 12.7 L Hct 37.5 L RDW 16.6 H Potassium 3.3 L Chloride 109 H Glucose 178 H POC Glucose (mg/dL) 311 H AST 16 L Total Protein 5.8 L 06/07/23 06:00 RBC Hgb Hct RDW Potassium Chloride Glucose POC Glucose (mg/dL) 224 H AST Total Protein - Diagnostic Findings Chest x-ray: image reviewed Assessment and Plan Plan: Acute COPD exacerbation with secondary shortness of breath, slightly improved compared to yesterday. Computed tomography scan of the chest was completed and it showed no evidence of pneumonia. There is extensive emphysema with upper lobe predominance right more than left. The patient had a sputum sample on 04/13/2023 that was positive for Pseudomonas aeruginosa and the chest x-ray showing some left perihilar opacity could be related to an underlying early pneumonia. Based on that, the patient will be covered with appropriate antibiotics. I am going to start the patient on IV cefepime. Chronic COPD with an FEV1 of 46% of predicted Chronic hypoxic respiratory failure, maintained on oxygen 3 L at home [id number] smoking history, the patient continues to smoke cigarettes around 4 of them on a daily basis Hyperlipidemia Chronic anxiety Chronic osteoarthritis Previous history of SVT Patient has history of pseudomonal tracheobronchitis Chronic smoker Plan Will put the patient on DuoNeb nebulizer treatments [id number] 4 times a day Start IV Solu-Medrol 60 mg for 6 hours IV cefepime 2 g every 12 hours Continue Symbicort and theophylline as maintenance Culture the sputum again Resume home medications Smoking cessation counseling was done as smoking could be one of the main triggers for his recurrent prescription exacerbation Will continue to follow. Long-term prognosis poor based on above-mentioned comorbidities.
--- NOTE | 2023-06-07 12:38 | P.HPIM ---
History of Present Illness H&P Date: 06/07/23 History of present illness; patient is a 77-year-old gentleman with past medical history significant for COPD, chronic hypoxemic respiratory failure, hyperlipidemia presented the ER for shortness of breath. Patient stated that he has been having shortness of breath for the last few days, complaining of shortness of breath on exertion. Patient also complaining of productive cough, phlegm is yellowish in color. Denies any fever or chills. There is no complaint of orthopnea PND. Patient denies any swelling of feet. Patient does use 2 L of oxygen at home. Because of this symptoms, patient presented to ER Initial lab work done in the ER showed WBC 6.8, hemoglobin 12.7, platelet count 176, sodium 141, potassium 3.3, BUN 14, creatinine 0.81, glucose 178, AST 16, ALT 19, alk phos 57 Influenza A not detected Influenza B not detected RSV not detected COVID-19 not detected EKG done in the ER showed heart rate of 93, no ST segment elevation or depression seen, no T-wave inversions seen. Chest x-ray done in the ER showed left perihilar airspace opacities Patient admitted to internal medicine service REVIEW OF SYSTEMS: CONSTITUTIONAL: No fever, no malaise, no fatigue. HEENT: No recent visual problems or hearing problems. Denied any sore throat. CARDIOVASCULAR: As mentioned HPI PULMONARY: As mentioned HPI GASTROINTESTINAL: No diarrhea, no nausea, no vomiting, no abdominal pain. NEUROLOGICAL: No headaches, no weakness, no numbness. HEMATOLOGICAL: Denies any bleeding or petechiae. GENITOURINARY: Denies any burning micturition, frequency, or urgency. MUSCULOSKELETAL/RHEUMATOLOGICAL: Denies any joint pain, swelling, or any muscle pain. ENDOCRINE: Denies any polyuria or polydipsia. The rest of the 14-point review of systems is negative. PHYSICAL EXAMINATION: GENERAL: The patient is alert and oriented x3, not in any acute distress. Well developed, well nourished. HEENT: Pupils are round and equally reacting to light. EOMI. No scleral icterus. No conjunctival pallor. Normocephalic, atraumatic. No pharyngeal erythema. No thyromegaly. CARDIOVASCULAR: S1 and S2 present. No murmurs, rubs, or gallops. PULMONARY: Coarse breath sound bilaterally, no wheezing or crackles. ABDOMEN: Soft, nontender, nondistended, normoactive bowel sounds. No palpable organomegaly. MUSCULOSKELETAL: No joint swelling or deformity. EXTREMITIES: No cyanosis, clubbing, or pedal edema. NEUROLOGICAL: Gross neurological examination did not reveal any focal deficits. SKIN: No rashes. Assessment and plan Bacterial pneumonia Acute on chronic hypoxemic respiratory failure Acute COPD exacerbation Hypokalemia Hyperlipidemia Hypertension Monitor vital signs Monitor CBC Monitor CMP Continue telemetry monitoring Continue IV Solu-Medrol Continue breathing treatment Continue IV cefepime Monitor blood sugar levels, continue sliding scale insulin Consult pulmonary Labs and medication were reviewed.. Continue same treatment. Continue with symptomatic treatment. Resume home medication. Monitor labs and vitals. DVT and GI prophylaxis. Further recommendations as per clinical course of the patient Dictation was produced using [employer] dictation software. please excuse any gram matical, word or spelling errors. Past Medical History Past Medical History: Chest Pain / Angina, COPD, Diabetes Mellitus, Hyperlipidemia, Myocardial Infarction (ND), Osteoarthritis (OA), Pneumonia, Prostate Disorder, Supraventricular Tachycardia (SVT) Additional Past Medical History / Comment(s): Chronic hypoxic respiratory failure with home oxygen pt mostly just wears at night, past acute hypoxic respiratory failure requiring bipap, newly diagnosed NIDDM type II, BPH, UTI Last Myocardial Infarction Date:: 2008 History of Any Multi-Drug Resistant Organisms: None Reported Past Surgical History: Back Surgery, Heart Catheterization, Hernia Repair, Joint Replacement, Orthopedic Surgery Additional Past Surgical History / Comment(s): microlaryngoscopy w/ lt vocal cord bx-neg, bronch-lung bx-neg, lt inguinal hernia, low back surgery, bilateral total hip arthroplasties, bilateral cataracts removed. Past Anesthesia/Blood Transfusion Reactions: No Reported Reaction Past Psychological History: No Psychological Hx Reported Additional Psychological History / Comment(s): Pt lives in own home with his frank that has 3 steps into house has 1 cat, 1 dog. 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 Past heavy etoh use but quit heavy drinking 20 years ago now only drinks once or twice a week when he plays cards and less than 14 drinks/week. Past Drug Use History: None Reported - Past Family History Mother Family Medical History: COPD, Diabetes Mellitus Father Family Medical History: COPD, Diabetes Mellitus Brother(s) Family Medical History: Cancer Additional Family Medical History / Comment(s): leukemia Medications and Allergies Home Medications Medication Instructions Recorded Confirmed Type Aspirin 81 mg PO DAILY 07/17/16 06/06/23 History Atorvastatin [Lipitor] 20 mg PO DAILY 07/17/16 06/06/23 History Budesonide-Formot 160-4.5 Mcg 2 puff INHALATION RT-BID 07/17/16 06/06/23 History [Symbicort 160-4.5 Mcg Inhaler] Metoprolol Tartrate [Lopressor] 25 mg PO DAILY 07/23/18 06/06/23 History Ibuprofen [Motrin] 800 mg PO BID PRN 03/24/19 06/06/23 History Albuterol Sulfate [Albuterol 2 puff PO RT-Q4H PRN 04/13/23 06/06/23 History Sulfate Hfa] Theophylline 24 Hour [Sonido-24] 400 mg PO DAILY 04/13/23 06/06/23 History Acetaminophen Tab [Tylenol] 650 mg PO Q6HR PRN tab 04/18/23 06/06/23 Rx Ipratropium-Albuterol Nebulize 3 ml INHALATION RT-Q4H #100 each 04/18/23 06/06/23 Rx [Duoneb 0.5 mg-3 mg/3 ml Soln] Nicotine 21Mg/24Hr Patch [Habitrol] 1 patch TRANSDERM DAILY 15 Days 05/14/23 06/06/23 Rx #15 patch Zolpidem [Ambien] 10 mg PO HS PRN 06/06/23 06/06/23 History Allergies Allergy/AdvReac Type Severity Reaction Status Date / Time Penicillins Allergy Unknown Verified 06/06/23 15:46 Physical Exam Vitals: Vital Signs Temp Pulse Pulse Resp BP BP Pulse Ox 06/07/23 08:26 84 06/07/23 08:15 84 98 06/07/23 07:37 98.9 F 87 18 126/61 95 06/07/23 04:06 87 06/07/23 03:58 85 06/07/23 02:00 98.0 F 72 115/64 98 06/06/23 20:53 84 06/06/23 20:42 82 06/06/23 20:00 97.8 F 79 152/72 97 06/06/23 18:06 98.9 F 78 20 141/78 97 06/06/23 17:21 82 18 06/06/23 17:12 79 18 06/06/23 14:39 98.6 F 102 H 26 H 164/70 97 Intake and Output 06/06/23 06/07/23 06/07/23 22:59 06:59 14:59 Other: Weight 77.111 kg Results CBC & Chem 7: 06/06/23 15:11 06/06/23 15:11 Labs: Abnormal Lab Results - Last 24 Hours (Table) 06/06/23 06/06/23 06/06/23 Range/Units 15:11 15:11 20:06 RBC 4.13 L (4.30-5.90) m/uL Hgb 12.7 L (13.0-17.5) gm/dL Hct 37.5 L (39.0-53.0) % RDW 16.6 H (11.5-15.5) % Potassium 3.3 L (3.5-5.1) mmol/L Chloride 109 H (98-107) mmol/L Glucose 178 H (74-99) mg/dL POC Glucose (mg/dL) 311 H (70-110) mg/dL AST 16 L (17-59) U/L Total Protein 5.8 L (6.3-8.2) g/dL 06/07/23 Range/Units 06:00 RBC (4.30-5.90) m/uL Hgb (13.0-17.5) gm/dL Hct (39.0-53.0) % RDW (11.5-15.5) % Potassium (3.5-5.1) mmol/L Chloride (98-107) mmol/L Glucose (74-99) mg/dL POC Glucose (mg/dL) 224 H (70-110) mg/dL AST (17-59) U/L Total Protein (6.3-8.2) g/dL Thrombosis Risk Factor Assmnt - Choose All That Apply Each Factor Represents 1 point: Acute ND Thrombosis Risk Factor Assessment Total Risk Factor Score: 1 Thrombosis Risk Factor Assessment Level: Low Risk
[2023-06-07 16:29] LABS: Glucose,Whole Blood 324 mg/dL (70-110)
[2023-06-07 20:13] LABS: Glucose,Whole Blood 320 mg/dL (70-110)
[2023-06-08] MEDS: ZOLPIDEM 5 MG TAB PO PRN (01:18)
[2023-06-08 06:07] LABS: Glucose,Whole Blood 221 mg/dL (70-110)
[2023-06-08 11:37] LABS: Glucose,Whole Blood 235 mg/dL (70-110)
--- NOTE | 2023-06-08 11:59 | P.PN ---
Subjective Progress Note Date: 06/08/23 patient is a 77-year-old gentleman with past medical history significant for COPD, chronic hypoxemic respiratory failure, hyperlipidemia presented the ER for shortness of breath. Patient stated that he has been having shortness of breath for the last few days, complaining of shortness of breath on exertion. Patient also complaining of productive cough, phlegm is yellowish in color. Denies any fever or chills. There is no complaint of orthopnea PND. Patient denies any swelling of feet. Patient does use 2 L of oxygen at home. Because of this symptoms, patient presented to ER Initial lab work done in the ER showed WBC 6.8, hemoglobin 12.7, platelet count 176, sodium 141, potassium 3.3, BUN 14, creatinine 0.81, glucose 178, AST 16, ALT 19, alk phos 57 Influenza A not detected Influenza B not detected RSV not detected COVID-19 not detected EKG done in the ER showed heart rate of 93, no ST segment elevation or depression seen, no T-wave inversions seen. Chest x-ray done in the ER showed left perihilar airspace opacities Patient admitted to internal medicine service 06/08. Patient seen examined. Complain of shortness of breath on exertion. Still having cough. REVIEW OF SYSTEMS: CONSTITUTIONAL: No fever, no malaise,. CARDIOVASCULAR: No chest pain, no palpitations, no syncope. PULMONARY: As mentioned above GASTROINTESTINAL: No diarrhea, no nausea, no vomiting, no abdominal pain. NEUROLOGICAL: No headaches, no weakness, PHYSICAL EXAMINATION: GENERAL: The patient is alert and oriented x3, not in any acute distress. Well developed, well nourished. HEENT: Pupils are round and equally reacting to light. EOMI. No scleral icterus. No conjunctival pallor. Normocephalic, atraumatic. No pharyngeal erythema. No thyromegaly. CARDIOVASCULAR: S1 and S2 present. No murmurs, rubs, or gallops. PULMONARY: Coarse breath sounds bilaterally, no wheezing or crackles. ABDOMEN: Soft, nontender, nondistended, normoactive bowel sounds. No palpable organomegaly. MUSCULOSKELETAL: No joint swelling or deformity. EXTREMITIES: No cyanosis, clubbing, or pedal edema. NEUROLOGICAL: Gross neurological examination did not reveal any focal deficits. SKIN: No rashes. Assessment and plan Bacterial pneumonia Acute on chronic hypoxemic respiratory failure Acute COPD exacerbation Hypokalemia Hyperlipidemia Hypertension Monitor vital signs Monitor CBC Monitor CMP Continue telemetry monitoring Continue aspirin, Lopressor, Lipitor Continue IV Solu-Medrol Continue breathing treatment Continue IV cefepime Monitor blood sugar levels, continue sliding scale insulin Pulmonology following Labs and medication were reviewed.. Continue same treatment. Continue with symptomatic treatment. Resume home medication. Monitor labs and vitals. DVT and GI prophylaxis. Further recommendations as per clinical course of the patient Dictation was produced using [employer] dictation software. please excuse any grammatical, word or spelling errors. Objective - Vital Signs Vital signs: Vital Signs Temp 98.4 F 06/08/23 07:58 Pulse 96 06/08/23 11:46 Resp 19 06/08/23 07:58 BP 144/62 06/08/23 07:58 Pulse Ox 92 L 06/08/23 08:45 FiO2 21 06/08/23 08:45 Intake & Output 06/07/23 06/08/23 06/08/23 18:59 06:59 18:59 Intake Total 240 Output Total 800 Balance -560 Intake: Oral 240 Output: Urine 800 Other: # Voids 3 4 - Labs CBC & Chem 7: 06/06/23 15:11 06/06/23 15:11 Labs: Abnormal Lab Results - Last 24 Hours (Table) 06/07/23 06/07/23 06/07/23 Range/Units 08:10 16:27 20:10 POC Glucose (mg/dL) 324 H 320 H (70-110) mg/dL Hemoglobin A1c 6.9 H (<=6.0) % 06/08/23 06/08/23 Range/Units 06:05 11:35 POC Glucose (mg/dL) 221 H 235 H (70-110) mg/dL Hemoglobin A1c (<=6.0) % Microbiology - Last 24 Hours (Table) 06/07/23 12:11 Gram Stain - Preliminary Sputum 06/06/23 15:28 Blood Culture - Preliminary Blood 06/06/23 15:00 Blood Culture - Preliminary Blood
--- NOTE | 2023-06-08 13:41 | P.PN ---
Subjective Progress Note Date: 06/08/23 On today's evaluation of 06/07/2023, the patient was seen in consultation regarding worsening shortness of breath and COPD exacerbation. The patient was admitted yesterday to the hospital because of increased dyspnea. The patient is known to have COPD and the patient is typically maintained on oxygen 3 L/min nasal cannula. At home, he has been taking a combination of Symbicort and theophylline. Note that his last COPD exacerbation was back in 05/11/2023 at that time the patient required hospitalization. He was also hospitalized on 04/13/2023 for the same and as such, the patient is having frequent exacerbation. An earlier sputum sample that was obtained on 04/13/2023 was positive for Pseudomonas aeruginosa. A CAT scan of the chest that was also done on 05/12/2023 showed emphysema with upper lobe predominance. The emphysematous findings were extensive and was consistent with centrilobular emphysema with scattered areas of scarring and atelectasis without any tumors or lesions. The repeat chest x-ray that was done during this current admission showed possibility of a left left perihilar airspace opacity although I think it is likely chronic. I am going to cover this patient with IV cefepime for now to give the patient a benefit of the doubt. Normal coagulation profile. The viral panel is negative. The labs are all within normal limits with a white cell count of 6.8 and hemoglobin 12.7 and the patient is currently on oxygen at 4 L to maintain a pulse ox of 98%. No altered mentation. No angina. No palpitation. No other complaints otherwise for now. 06/08/2023, the patient is feeling slightly improved compared to yesterday. I had to cover this patient with broad-spectrum antibiotics as the patient has had previous history of gram-negative pneumonias including Pseudomonas. Sputum samples were sent and the results are still pending for now. The patient otherwise has no new complaints. The patient is less bronchospastic and wheezy compared to yesterday that responded to DuoNeb updrafts and IV Solu-Medrol. The patient is also on a combination of Symbicort and theophylline. The blood sugars at 235. No new labs are available from today. Initial viral screen was negative. The chest x-ray showed a questionable left perihilar infiltrate I think that is a area of heterogeneous emphysema as noted on the previous CAT scan. Possibility of pneumonia cannot be completely ruled out. This is felt to be less likely. Nevertheless, the patient was given the benefit of the doubt and covered with antibiotics. Objective - Vital Signs Vital signs: Vital Signs Temp 98.4 F 06/08/23 07:58 Pulse 96 06/08/23 08:55 Resp 19 06/08/23 07:58 BP 144/62 06/08/23 07:58 Pulse Ox 92 L 06/08/23 08:45 FiO2 21 06/08/23 08:45 Intake & Output 06/07/23 06/08/23 06/08/23 18:59 06:59 18:59 Intake Total 240 Output Total 800 Balance -560 Intake: Oral 240 Output: Urine 800 Other: # Voids 3 4 - Exam GENERAL EXAM: Alert, pleasant 77-year-old male, on 4 L nasal cannula, fairly comfortable in no apparent distress. HEAD: Normocephalic. EYES: Normal reaction of pupils, equal size. NOSE: Clear with pink turbinates. THROAT: No erythema or exudates. NECK: No masses, no JVD. CHEST: No chest wall deformity. LUNGS: Equal air entry with bilateral end expiratory wheeze, diminished. CVS: S1 and S2 normal with no audible murmur, regular rhythm. ABDOMEN: No hepatosplenomegaly, normal bowel sounds, no guarding or rigidity. SPINE: No scoliosis or deformity SKIN: No rashes CENTRAL NERVOUS SYSTEM: No focal deficits, tone is normal in all 4 extremities. EXTREMITIES: There is no peripheral edema. No clubbing, no cyanosis. Peripheral pulses are intact. - Labs CBC & Chem 7: 06/06/23 15:11 06/06/23 15:11 Labs: Abnormal Lab Results - Last 24 Hours (Table) 06/07/23 06/07/23 06/07/23 Range/Units 08:10 11:14 16:27 POC Glucose (mg/dL) 316 H 324 H (70-110) mg/dL Hemoglobin A1c 6.9 H (<=6.0) % 06/07/23 06/08/23 Range/Units 20:10 06:05 POC Glucose (mg/dL) 320 H 221 H (70-110) mg/dL Hemoglobin A1c (<=6.0) % Microbiology - Last 24 Hours (Table) 06/07/23 12:11 Gram Stain - Preliminary Sputum 06/06/23 15:28 Blood Culture - Preliminary Blood 06/06/23 15:00 Blood Culture - Preliminary Blood Assessment and Plan Plan: Acute COPD exacerbation with secondary shortness of breath, slightly improved compared to yesterday. Computed tomography scan of the chest was completed and it showed no evidence of pneumonia. There is extensive emphysema with upper lobe predominance right more than left. The patient had a sputum sample on 04/13/2023 that was positive for Pseudomonas aeruginosa and the chest x-ray showing some left perihilar opacity could be related to an underlying early pneumonia. Based on that, the patient will be covered with appropriate antibiotics. I am going to start the patient on IV cefepime. Chronic COPD with an FEV1 of 46% of predicted Chronic hypoxic respiratory failure, maintained on oxygen 3 L at home [id number] smoking history, the patient continues to smoke cigarettes around 4 of them on a daily basis Hyperlipidemia Chronic anxiety Chronic osteoarthritis Previous history of SVT Patient has history of pseudomonal tracheobronchitis Chronic smoker Plan Clinically improving I would suggest continuing the same treatment for now Will put the patient on DuoNeb nebulizer treatments [id number] 4 times a day Continue IV Solu-Medrol 60 mg for 6 hours IV cefepime 2 g every 12 hours, pending sputum Gram stain and culture Continue Symbicort and theophylline as maintenance Culture the sputum again Resume home medications Smoking cessation counseling was done as smoking could be one of the main triggers for his recurrent prescription exacerbation Will continue to follow. Long-term prognosis poor based on above-mentioned comorbidities.
[2023-06-08 16:37] LABS: Glucose,Whole Blood 357 mg/dL (70-110)
[2023-06-08 19:43] LABS: Glucose,Whole Blood 321 mg/dL (70-110)
[2023-06-09 05:48] LABS: Glucose,Whole Blood 225 mg/dL (70-110)
[2023-06-09 08:32] LABS: Basophils # (A) 0.02 X 10*3/uL (0.00-0.10); Basophils % (A) 0.2 %; Eosinophils # (A) 0 X 10*3/uL (0.04-0.35); Eosinophils % (A) 0 %; HGB 11.4 g/dL (13.0-17.0); Lymphocytes # (A) 0.61 X 10*3/uL (0.90-5.00); Lymphocytes % (A) 4.7 %; MCH 30.4 pg (27.0-32.0); MCHC 32.6 g/dL (32.0-37.0); MCV 93.3 FL (80.0-97.0); Mean Platelet Volume 11.6 FL (9.5-12.2); Monocytes # (A) 0.57 X 10*3/uL (0.20-1.00); Monocytes % (A) 4.4 %; NRBC Per 100 WBC 0 X 10*3/uL (0.00-0.01); Neutrophils # (A) 11.74 X 10*3/uL (1.80-7.70); Neutrophils % (A) 89.7 %; Platelet Count 214 X 10*3/uL (140-440); RBC 3.75 X 10*6/uL (4.40-5.60); RDW 16.5 % (11.5-14.5); WBC 13.07 X 10*3/uL (4.50-10.00)
[2023-06-09 08:52] LABS: ALT 17 U/L (10-49); AST 9 U/L (14-35); Albumin 3.8 g/dL (3.8-4.9); Albumin/Globulin Ratio 2.11 Ratio (1.60-3.17); Alkaline Phosphatase 60 U/L (41-126); BUN/Creat Ratio 24.89 Ratio (12.00-20.00); Blood Urea Nitrogen 22.4 mg/dL (9.0-27.0); Calcium 9.4 mg/dL (8.7-10.3); Chloride 105 mmol/L (96-109); Globulin 1.8 g/dL (1.6-3.3); Glucose 216 mg/dL (70-110); Potassium 4.4 mmol/L (3.5-5.5); Sodium 141 mmol/L (135-145); Total Bilirubin 0.3 mg/dL (0.3-1.2); Total Protein 5.6 g/dL (6.2-8.2)
--- NOTE | 2023-06-09 11:42 | P.PN ---
Subjective Progress Note Date: 06/09/23 patient is a 77-year-old gentleman with past medical history significant for COPD, chronic hypoxemic respiratory failure, hyperlipidemia presented the ER for shortness of breath. Patient stated that he has been having shortness of breath for the last few days, complaining of shortness of breath on exertion. Patient also complaining of productive cough, phlegm is yellowish in color. Denies any fever or chills. There is no complaint of orthopnea PND. Patient denies any swelling of feet. Patient does use 2 L of oxygen at home. Because of this symptoms, patient presented to ER Initial lab work done in the ER showed WBC 6.8, hemoglobin 12.7, platelet count 176, sodium 141, potassium 3.3, BUN 14, creatinine 0.81, glucose 178, AST 16, ALT 19, alk phos 57 Influenza A not detected Influenza B not detected RSV not detected COVID-19 not detected EKG done in the ER showed heart rate of 93, no ST segment elevation or depression seen, no T-wave inversions seen. Chest x-ray done in the ER showed left perihilar airspace opacities Patient admitted to internal medicine service 06/08. Patient seen examined. Complain of shortness of breath on exertion. Still having cough. 06/09. Patient seen and examined. Currently on 3 L of oxygen. States he gets short of breath on exertion. Still having productive cough REVIEW OF SYSTEMS: CONSTITUTIONAL: No fever, no malaise,. CARDIOVASCULAR: No chest pain, no palpitations, no syncope. PULMONARY: As mentioned above GASTROINTESTINAL: No diarrhea, no nausea, no vomiting, no abdominal pain. NEUROLOGICAL: No headaches, no weakness, PHYSICAL EXAMINATION: GENERAL: The patient is alert and oriented x3, not in any acute distress. Well developed, well nourished. HEENT: Pupils are round and equally reacting to light. EOMI. No scleral icterus. No conjunctival pallor. Normocephalic, atraumatic. No pharyngeal erythema. No thyromegaly. CARDIOVASCULAR: S1 and S2 present. No murmurs, rubs, or gallops. PULMONARY: Coarse breath sounds bilaterally, no wheezing or crackles. ABDOMEN: Soft, nontender, nondistended, normoactive bowel sounds. No palpable organomegaly. MUSCULOSKELETAL: No joint swelling or deformity. EXTREMITIES: No cyanosis, clubbing, or pedal edema. NEUROLOGICAL: Gross neurological examination did not reveal any focal deficits. SKIN: No rashes. Assessment and plan Bacterial pneumonia Acute on chronic hypoxemic respiratory failure Acute COPD exacerbation Hypokalemia Hyperlipidemia Hypertension Monitor vital signs Monitor CBC Monitor CMP Continue telemetry monitoring Continue aspirin, Lopressor, Lipitor Continue IV Solu-Medrol Continue breathing treatment Continue IV cefepime Monitor blood sugar levels, continue sliding scale insulin Pulmonology following Labs and medication were reviewed.. Continue same treatment. Continue with symptomatic treatment. Resume home medication. Monitor labs and vitals. DVT and GI prophylaxis. Further recommendations as per clinical course of the patient Dictation was produced using [employer] dictation software. please excuse any grammatical, word or spelling errors. Objective - Vital Signs Vital signs: Vital Signs Temp 98.0 F 06/09/23 07:37 Pulse 82 06/09/23 08:22 Resp 17 06/09/23 07:37 BP 150/65 06/09/23 07:37 Pulse Ox 97 06/09/23 08:13 FiO2 21 06/08/23 08:45 Intake & Output 06/08/23 06/09/23 06/09/23 18:59 06:59 18:59 Other: # Voids 4 2 - Labs CBC & Chem 7: 06/09/23 05:19 06/09/23 05:19 Labs: Abnormal Lab Results - Last 24 Hours (Table) 06/08/23 06/08/23 06/08/23 Range/Units 11:35 16:36 19:41 WBC (4.50-10.00) X 10*3/uL RBC (4.40-5.60) X 10*6/uL Hgb (13.0-17.0) g/dL Hct (39.6-50.0) % RDW (11.5-14.5) % Immature Gran # (0.00-0.04) X 10*3/uL Neutrophils # (1.80-7.70) X 10*3/uL Lymphocytes # (0.90-5.00) X 10*3/uL Eosinophils # (0.04-0.35) X 10*3/uL Anion Gap (4.00-12.00) mmol/L BUN/Creatinine Ratio (12.00-20.00) Ratio Glucose (70-110) mg/dL POC Glucose (mg/dL) 235 H 357 H 321 H (70-110) mg/dL AST (14-35) U/L Total Protein (6.2-8.2) g/dL 06/09/23 06/09/23 06/09/23 Range/Units 05:19 05:19 05:48 WBC 13.07 H (4.50-10.00) X 10*3/uL RBC 3.75 L (4.40-5.60) X 10*6/uL Hgb 11.4 L (13.0-17.0) g/dL Hct 35.0 L (39.6-50.0) % RDW 16.5 H (11.5-14.5) % Immature Gran # 0.13 H (0.00-0.04) X 10*3/uL Neutrophils # 11.74 H (1.80-7.70) X 10*3/uL Lymphocytes # 0.61 L (0.90-5.00) X 10*3/uL Eosinophils # 0 L (0.04-0.35) X 10*3/uL Anion Gap 14.00 H (4.00-12.00) mmol/L BUN/Creatinine Ratio 24.89 H (12.00-20.00) Ratio Glucose 216 H (70-110) mg/dL POC Glucose (mg/dL) 225 H (70-110) mg/dL AST 9 L (14-35) U/L Total Protein 5.6 L (6.2-8.2) g/dL Microbiology - Last 24 Hours (Table) 06/06/23 15:28 Blood Culture - Preliminary Blood 06/06/23 15:00 Blood Culture - Preliminary Blood 06/07/23 12:11 Gram Stain - Preliminary Sputum
[2023-06-09 11:55] LABS: Glucose,Whole Blood 356 mg/dL (70-110)
[2023-06-09] MEDS: IPRATROPIUM-ALBUTEROL 3 ML NEB INHALATION SCH (12:08)
[2023-06-09] MEDS: ALPRAZolam 0.5 MG TAB PO PRN (13:01)
--- NOTE | 2023-06-09 14:02 | P.PN ---
Subjective Progress Note Date: 06/09/23 On today's evaluation of 06/07/2023, the patient was seen in consultation regarding worsening shortness of breath and COPD exacerbation. The patient was admitted yesterday to the hospital because of increased dyspnea. The patient is known to have COPD and the patient is typically maintained on oxygen 3 L/min nasal cannula. At home, he has been taking a combination of Symbicort and theophylline. Note that his last COPD exacerbation was back in 05/11/2023 at that time the patient required hospitalization. He was also hospitalized on 04/13/2023 for the same and as such, the patient is having frequent exacerbation. An earlier sputum sample that was obtained on 04/13/2023 was positive for Pseudomonas aeruginosa. A CAT scan of the chest that was also done on 05/12/2023 showed emphysema with upper lobe predominance. The emphysematous findings were extensive and was consistent with centrilobular emphysema with scattered areas of scarring and atelectasis without any tumors or lesions. The repeat chest x-ray that was done during this current admission showed possibility of a left left perihilar airspace opacity although I think it is likely chronic. I am going to cover this patient with IV cefepime for now to give the patient a benefit of the doubt. Normal coagulation profile. The viral panel is negative. The labs are all within normal limits with a white cell count of 6.8 and hemoglobin 12.7 and the patient is currently on oxygen at 4 L to maintain a pulse ox of 98%. No altered mentation. No angina. No palpitation. No other complaints otherwise for now. 06/08/2023, the patient is feeling slightly improved compared to yesterday. I had to cover this patient with broad-spectrum antibiotics as the patient has had previous history of gram-negative pneumonias including Pseudomonas. Sputum samples were sent and the results are still pending for now. The patient otherwise has no new complaints. The patient is less bronchospastic and wheezy compared to yesterday that responded to DuoNeb updrafts and IV Solu-Medrol. The patient is also on a combination of Symbicort and theophylline. The blood sugars at 235. No new labs are available from today. Initial viral screen was negative. The chest x-ray showed a questionable left perihilar infiltrate I think that is a area of heterogeneous emphysema as noted on the previous CAT scan. Possibility of pneumonia cannot be completely ruled out. This is felt to be less likely. Nevertheless, the patient was given the benefit of the doubt and covered with antibiotics. The patient is seen today June 09, 2023 in follow-up on the regular medical floor. He is currently sitting up at the bedside. Awake and alert in no acute distress. Breathing a bit easier today compared to yesterday. Maintaining O2 saturations in the 90s on 3 L/min per nasal cannula. He has been afebrile. Hemodynamically stable. Blood cultures are revealing no growth. Sputum culture positive for gram-negative bacilli. White count 13.0. Hemoglobin 10.4. Platelets 214. Sodium 141. Potassium 4.4. Bicarb 22. BUN 22. Creatinine 0.9 . He is continued on DuoNeb ventilations, Symbicort, Solu-Medrol. NicoDerm patch in place. Antibiotics in the form of cefepime. Objective - Vital Signs Vital signs: Vital Signs Temp 98.0 F 06/09/23 07:37 Pulse 86 06/09/23 12:21 Resp 18 06/09/23 11:18 BP 150/65 06/09/23 07:37 Pulse Ox 97 06/09/23 08:13 FiO2 21 06/08/23 08:45 Intake & Output 06/08/23 06/09/23 06/09/23 18:59 06:59 18:59 Intake Total 350 Balance 350 Intake: Oral 350 Other: # Voids 4 2 - Exam GENERAL EXAM: Alert, 77-year-old male patient, on 3 L nasal cannula, comfortable in no apparent distress. HEAD: Normocephalic. EYES: Normal reaction of pupils, equal size. NOSE: Clear with pink turbinates. THROAT: No erythema or exudates. NECK: No masses, no JVD. CHEST: No chest wall deformity. LUNGS: Equal air entry with faint end expiratory wheeze, diminished. CVS: S1 and S2 normal with no audible murmur, regular rhythm. ABDOMEN: No hepatosplenomegaly, normal bowel sounds, no guarding or rigidity. SPINE: No scoliosis or deformity SKIN: No rashes CENTRAL NERVOUS SYSTEM: No focal deficits, tone is normal in all 4 extremities. EXTREMITIES: There is no peripheral edema. No clubbing, no cyanosis. Peripheral pulses are intact. - Labs CBC & Chem 7: 06/09/23 05:19 06/09/23 05:19 Labs: Abnormal Lab Results - Last 24 Hours (Table) 06/08/23 06/08/23 06/09/23 Range/Units 16:36 19:41 05:19 WBC 13.07 H (4.50-10.00) X 10*3/uL RBC 3.75 L (4.40-5.60) X 10*6/uL Hgb 11.4 L (13.0-17.0) g/dL Hct 35.0 L (39.6-50.0) % RDW 16.5 H (11.5-14.5) % Immature Gran # 0.13 H (0.00-0.04) X 10*3/uL Neutrophils # 11.74 H (1.80-7.70) X 10*3/uL Lymphocytes # 0.61 L (0.90-5.00) X 10*3/uL Eosinophils # 0 L (0.04-0.35) X 10*3/uL Anion Gap (4.00-12.00) mmol/L BUN/Creatinine Ratio (12.00-20.00) Ratio Glucose (70-110) mg/dL POC Glucose (mg/dL) 357 H 321 H (70-110) mg/dL AST (14-35) U/L Total Protein (6.2-8.2) g/dL 06/09/23 06/09/23 06/09/23 Range/Units 05:19 05:48 11:54 WBC (4.50-10.00) X 10*3/uL RBC (4.40-5.60) X 10*6/uL Hgb (13.0-17.0) g/dL Hct (39.6-50.0) % RDW (11.5-14.5) % Immature Gran # (0.00-0.04) X 10*3/uL Neutrophils # (1.80-7.70) X 10*3/uL Lymphocytes # (0.90-5.00) X 10*3/uL Eosinophils # (0.04-0.35) X 10*3/uL Anion Gap 14.00 H (4.00-12.00) mmol/L BUN/Creatinine Ratio 24.89 H (12.00-20.00) Ratio Glucose 216 H (70-110) mg/dL POC Glucose (mg/dL) 225 H 356 H (70-110) mg/dL AST 9 L (14-35) U/L Total Protein 5.6 L (6.2-8.2) g/dL Microbiology - Last 24 Hours (Table) 06/07/23 12:11 Gram Stain - Preliminary Sputum Sputum Culture - Preliminary Gram Neg Bacilli 06/06/23 15:28 Blood Culture - Preliminary Blood 06/06/23 15:00 Blood Culture - Preliminary Blood Assessment and Plan Assessment: Acute COPD exacerbation with secondary shortness of breath, improved. Computed tomography scan of the chest was completed and it showed no evidence of pneumonia. There is extensive emphysema with upper lobe predominance right more than left. Covered with appropriate antibiotics. Started on IV cefepime. He has history of pseudomonal infections. Sputum culture this admission revealing gram-negative bacilli Chronic COPD with an FEV1 of 46% of predicted Chronic hypoxic respiratory failure, maintained on oxygen 3 L at home [id number] smoking history, the patient continues to smoke Hyperlipidemia Chronic anxiety Chronic osteoarthritis Previous history of SVT History of pseudomonal tracheobronchitis Plan: The patient was seen and evaluated Labs and medications reviewed Continue cefepime Continue bronchodilators, steroids Educated regarding complete smoking cessation NicoDerm patch in place Probable discharge in the a.m. We will continue to follow I have personally seen and examined the patient, performed the documentation and the assessment and plan as written. Number of minutes spent on the visit: 10.
[2023-06-09 14:15] LABS: Glucose,Whole Blood 342 mg/dL (70-110)
[2023-06-09 17:04] LABS: Glucose,Whole Blood 286 mg/dL (70-110)
[2023-06-09 20:00] LABS: Glucose,Whole Blood 340 mg/dL (70-110)
[2023-06-10 02:48] VITALS: RESP 18
[2023-06-10 05:47] LABS: Glucose,Whole Blood 151 mg/dL (70-110)
[2023-06-10 08:17] VITALS: BP 154/61; TEMP 97.7
[2023-06-10 09:16] VITALS: PULSE 82
[2023-06-10 11:26] LABS: Basophils # (A) 0.01 X 10*3/uL (0.00-0.10); Basophils % (A) 0.1 %; Eosinophils # (A) 0 X 10*3/uL (0.04-0.35); Eosinophils % (A) 0 %; HCT 34.7 % (39.6-50.0); HGB 11.4 g/dL (13.0-17.0); Lymphocytes # (A) 1.61 X 10*3/uL (0.90-5.00); Lymphocytes % (A) 14.8 %; MCH 30.2 pg (27.0-32.0); MCHC 32.9 g/dL (32.0-37.0); MCV 91.8 FL (80.0-97.0); Monocytes # (A) 0.93 X 10*3/uL (0.20-1.00); Monocytes % (A) 8.5 %; NRBC Per 100 WBC 0.05 X 10*3/uL (0.00-0.01); Neutrophils # (A) 8.22 X 10*3/uL (1.80-7.70); Neutrophils % (A) 75.3 %; Platelet Count 202 X 10*3/uL (140-440); RBC 3.78 X 10*6/uL (4.40-5.60); RDW 16.5 % (11.5-14.5); WBC 10.91 X 10*3/uL (4.50-10.00)
[2023-06-10 11:38] LABS: ALT 16 U/L (10-49); AST 8 U/L (14-35); Albumin 3.5 g/dL (3.8-4.9); Albumin/Globulin Ratio 2.06 Ratio (1.60-3.17); Alkaline Phosphatase 57 U/L (41-126); BUN/Creat Ratio 26.44 Ratio (12.00-20.00); Blood Urea Nitrogen 23.8 mg/dL (9.0-27.0); Calcium 9.2 mg/dL (8.7-10.3); Carbon Dioxide 25.7 mmol/L (21.6-31.8); Chloride 104 mmol/L (96-109); Globulin 1.7 g/dL (1.6-3.3); Glucose 153 mg/dL (70-110); Sodium 139 mmol/L (135-145); Total Bilirubin 0.3 mg/dL (0.3-1.2); Total Protein 5.2 g/dL (6.2-8.2)
[2023-06-10 11:45] LABS: Glucose,Whole Blood 122 mg/dL (70-110)
--- NOTE | 2023-06-10 12:06 | P.DS ---
Providers Date of admission: 06/09/23 11:41 Expected date of discharge: 06/10/23 Attending physician: Beth Reed Consults: 06/07/23 08:59 Consult Physician Routine Consulting Provider: Isael Clayton Consult Reason/Comments: OCPD, pneumonia Do you want consulting provider notified?: Yes Primary care physician: Britni Peres Hospital Course: Discharge diagnoses; Bacterial pneumonia Acute on chronic hypoxemic respiratory failure Acute COPD exacerbation Hypokalemia Hyperlipidemia Hypertension Hospital course; patient is a 77-year-old gentleman with past medical history significant for COPD, chronic hypoxemic respiratory failure, hyperlipidemia presented the ER for shortness of breath. Patient stated that he has been having shortness of breath for the last few days, complaining of shortness of breath on exertion. Patient also complaining of productive cough, phlegm is yellowish in color. Denies any fever or chills. There is no complaint of orthopnea PND. Patient denies any swelling of feet. Patient does use 2 L of oxygen at home. Because of this symptoms, patient presented to ER Initial lab work done in the ER showed WBC 6.8, hemoglobin 12.7, platelet count 176, sodium 141, potassium 3.3, BUN 14, creatinine 0.81, glucose 178, AST 16, ALT 19, alk phos 57 Influenza A not detected Influenza B not detected RSV not detected COVID-19 not detected EKG done in the ER showed heart rate of 93, no ST segment elevation or depression seen, no T-wave inversions seen. Chest x-ray done in the ER showed left perihilar airspace opacities Patient admitted to internal medicine service 06/08. Patient seen examined. Complain of shortness of breath on exertion. Still having cough. 06/09. Patient seen and examined. Currently on 3 L of oxygen. States he gets short of breath on exertion. Still having productive cough 06/10. Patient seen and examined. Breathing is improved. Being discharged on tapering dose of prednisone and Ceftin. Outpatient follow-up with pulmonology PHYSICAL EXAMINATION: GENERAL: The patient is alert and oriented x3, not in any acute distress. Well developed, well nourished. HEENT: Pupils are round and equally reacting to light. EOMI. No scleral icterus. No conjunctival pallor. Normocephalic, atraumatic. No pharyngeal erythema. No thyromegaly. CARDIOVASCULAR: S1 and S2 present. No murmurs, rubs, or gallops. PULMONARY: Coarse breath sounds bilaterally, no wheezing or crackles. ABDOMEN: Soft, nontender, nondistended, normoactive bowel sounds. No palpable organomegaly. MUSCULOSKELETAL: No joint swelling or deformity. EXTREMITIES: No cyanosis, clubbing, or pedal edema. NEUROLOGICAL: Gross neurological examination did not reveal any focal deficits. SKIN: No rashes. Dictation was produced using [employer] dictation software. please excuse any grammatical, word or spelling errors. Patient Condition at Discharge: Stable Plan - Discharge Summary Discharge Rx Participant: Yes New Discharge Prescriptions: New cefUROXime axetiL [Cefuroxime] 500 mg PO BID 4 Days #8 tab predniSONE 10 mg PO DAILY 8 Days #20 tab Continue Atorvastatin [Lipitor] 20 mg PO DAILY Aspirin 81 mg PO DAILY Budesonide-Formot 160-4.5 Mcg [Symbicort 160-4.5 Mcg Inhaler] 2 puff INHALATION RT-BID Metoprolol Tartrate [Lopressor] 25 mg PO DAILY Ibuprofen [Motrin] 800 mg PO BID PRN PRN Reason: Pain Ipratropium-Albuterol Nebulize [Duoneb 0.5 mg-3 mg/3 ml Soln] 3 ml INHALATION RT-Q4H #100 each Nicotine 21Mg/24Hr Patch [Habitrol] 1 patch TRANSDERM DAILY 15 Days #15 patch Zolpidem [Ambien] 10 mg PO HS PRN PRN Reason: Insomnia Theophylline 24 Hour [Sonido-24] 400 mg PO DAILY Albuterol Sulfate [Albuterol Sulfate Hfa] 2 puff PO RT-Q4H PRN PRN Reason: Shortness Of Breath Acetaminophen Tab [Tylenol] 650 mg PO Q6HR PRN tab PRN Reason: Mild Pain Or Fever > 100.5 Discharge Medication List Aspirin 81 mg PO DAILY 07/17/16 [History] Atorvastatin [Lipitor] 20 mg PO DAILY 07/17/16 [History] Budesonide-Formot 160-4.5 Mcg [Symbicort 160-4.5 Mcg Inhaler] 2 puff INHALATION RT-BID 07/17/16 [History] Metoprolol Tartrate [Lopressor] 25 mg PO DAILY 07/23/18 [History] Ibuprofen [Motrin] 800 mg PO BID PRN 03/24/19 [History] Albuterol Sulfate [Albuterol Sulfate Hfa] 2 puff PO RT-Q4H PRN 04/13/23 [History] Theophylline 24 Hour [Sonido-24] 400 mg PO DAILY 04/13/23 [History] Acetaminophen Tab [Tylenol] 650 mg PO Q6HR PRN tab 04/18/23 [Rx] Ipratropium-Albuterol Nebulize [Duoneb 0.5 mg-3 mg/3 ml Soln] 3 ml INHALATION RT-Q4H #100 each 04/18/23 [Rx] Nicotine 21Mg/24Hr Patch [Habitrol] 1 patch TRANSDERM DAILY 15 Days #15 patch 05/14/23 [Rx] Zolpidem [Ambien] 10 mg PO HS PRN 06/06/23 [History] cefUROXime axetiL [Cefuroxime] 500 mg PO BID 4 Days #8 tab 06/10/23 [Rx] predniSONE 10 mg PO DAILY 8 Days #20 tab 06/10/23 [Rx] Follow up Appointment(s)/Referral(s): Britni Peres MD [Primary Care Provider] - 1-2 days Isael Clayton MD [STAFF PHYSICIAN] - 06/19/23 10:45 am Discharge Disposition: HOME SELF-CARE
--- NOTE | 2023-06-10 13:47 | P.PN ---
Subjective Progress Note Date: 06/10/23 On today's evaluation of 06/07/2023, the patient was seen in consultation regarding worsening shortness of breath and COPD exacerbation. The patient was admitted yesterday to the hospital because of increased dyspnea. The patient is known to have COPD and the patient is typically maintained on oxygen 3 L/min nasal cannula. At home, he has been taking a combination of Symbicort and theophylline. Note that his last COPD exacerbation was back in 05/11/2023 at that time the patient required hospitalization. He was also hospitalized on 04/13/2023 for the same and as such, the patient is having frequent exacerbation. An earlier sputum sample that was obtained on 04/13/2023 was positive for Pseudomonas aeruginosa. A CAT scan of the chest that was also done on 05/12/2023 showed emphysema with upper lobe predominance. The emphysematous findings were extensive and was consistent with centrilobular emphysema with scattered areas of scarring and atelectasis without any tumors or lesions. The repeat chest x-ray that was done during this current admission showed possibility of a left left perihilar airspace opacity although I think it is likely chronic. I am going to cover this patient with IV cefepime for now to give the patient a benefit of the doubt. Normal coagulation profile. The viral panel is negative. The labs are all within normal limits with a white cell count of 6.8 and hemoglobin 12.7 and the patient is currently on oxygen at 4 L to maintain a pulse ox of 98%. No altered mentation. No angina. No palpitation. No other complaints otherwise for now. 06/08/2023, the patient is feeling slightly improved compared to yesterday. I had to cover this patient with broad-spectrum antibiotics as the patient has had previous history of gram-negative pneumonias including Pseudomonas. Sputum samples were sent and the results are still pending for now. The patient otherwise has no new complaints. The patient is less bronchospastic and wheezy compared to yesterday that responded to DuoNeb updrafts and IV Solu-Medrol. The patient is also on a combination of Symbicort and theophylline. The blood sugars at 235. No new labs are available from today. Initial viral screen was negative. The chest x-ray showed a questionable left perihilar infiltrate I think that is a area of heterogeneous emphysema as noted on the previous CAT scan. Possibility of pneumonia cannot be completely ruled out. This is felt to be less likely. Nevertheless, the patient was given the benefit of the doubt and covered with antibiotics. The patient is seen today June 09, 2023 in follow-up on the regular medical floor. He is currently sitting up at the bedside. Awake and alert in no acute distress. Breathing a bit easier today compared to yesterday. Maintaining O2 saturations in the 90s on 3 L/min per nasal cannula. He has been afebrile. Hemodynamically stable. Blood cultures are revealing no growth. Sputum culture positive for gram-negative bacilli. White count 13.0. Hemoglobin 10.4. Platelets 214. Sodium 141. Potassium 4.4. Bicarb 22. BUN 22. Creatinine 0.9 . He is continued on DuoNeb ventilations, Symbicort, Solu-Medrol. NicoDerm patch in place. Antibiotics in the form of cefepime. The patient is seen today June 10, 2023 in follow-up on the regular medical floor. He is awake and alert in no acute distress. Sitting up at the bedside. Denies any worsening shortness of breath, cough or congestion. He is maintaining O2 saturations in the 90s on room air. He has been afebrile. Hemodynamically stable. Sputum culture positive for Pseudomonas aeruginosa. White count 10.9. Hemoglobin 11.4. Platelets 202. Sodium 139. Potassium 4.0. Bicarb 26. BUN 24. Creatinine 0.9. Glucose 153. He is continued on DuoNeb ventilations, Symbicort, Solu-Medrol and theophylline. NicoDerm patch in place. Antibiotics in the form of cefepime. Objective - Vital Signs Vital signs: Vital Signs Temp 97.7 F 06/10/23 07:35 Pulse 82 06/10/23 09:00 Resp 18 06/10/23 07:35 BP 154/61 06/10/23 07:35 Pulse Ox 97 06/10/23 11:00 FiO2 21 06/08/23 08:45 Intake & Output 06/09/23 06/10/23 06/10/23 18:59 06:59 18:59 Intake Total 700 Output Total 500 425 Balance 200 -425 Intake: Oral 700 Output: Urine 500 425 - Exam GENERAL EXAM: Alert, 77-year-old male patient, on room, comfortable in no ap parent distress. HEAD: Normocephalic. EYES: Normal reaction of pupils, equal size. NOSE: Clear with pink turbinates. THROAT: No erythema or exudates. NECK: No masses, no JVD. CHEST: No chest wall deformity. LUNGS: Equal air entry with faint end expiratory wheeze, diminished. CVS: S1 and S2 normal with no audible murmur, regular rhythm. ABDOMEN: No hepatosplenomegaly, normal bowel sounds, no guarding or rigidity. SPINE: No scoliosis or deformity SKIN: No rashes CENTRAL NERVOUS SYSTEM: No focal deficits, tone is normal in all 4 extremities. EXTREMITIES: There is no peripheral edema. No clubbing, no cyanosis. Peripheral pulses are intact. - Labs CBC & Chem 7: 06/10/23 05:14 06/10/23 05:14 Labs: Abnormal Lab Results - Last 24 Hours (Table) 06/09/23 06/09/23 06/09/23 Range/Units 14:13 17:03 19:58 WBC (4.50-10.00) X 10*3/uL RBC (4.40-5.60) X 10*6/uL Hgb (13.0-17.0) g/dL Hct (39.6-50.0) % RDW (11.5-14.5) % Immature Gran # (0.00-0.04) X 10*3/uL Neutrophils # (1.80-7.70) X 10*3/uL Eosinophils # (0.04-0.35) X 10*3/uL NRBC/100 WBC Diff (0.00-0.01) X 10*3/uL BUN/Creatinine Ratio (12.00-20.00) Ratio Glucose (70-110) mg/dL POC Glucose (mg/dL) 342 H 286 H 340 H (70-110) mg/dL AST (14-35) U/L Total Protein (6.2-8.2) g/dL Albumin (3.8-4.9) g/dL 06/10/23 06/10/23 06/10/23 Range/Units 05:14 05:14 05:45 WBC 10.91 H (4.50-10.00) X 10*3/uL RBC 3.78 L (4.40-5.60) X 10*6/uL Hgb 11.4 L (13.0-17.0) g/dL Hct 34.7 L (39.6-50.0) % RDW 16.5 H (11.5-14.5) % Immature Gran # 0.14 H (0.00-0.04) X 10*3/uL Neutrophils # 8.22 H (1.80-7.70) X 10*3/uL Eosinophils # 0 L (0.04-0.35) X 10*3/uL NRBC/100 WBC Diff 0.05 H (0.00-0.01) X 10*3/uL BUN/Creatinine Ratio 26.44 H (12.00-20.00) Ratio Glucose 153 H (70-110) mg/dL POC Glucose (mg/dL) 151 H (70-110) mg/dL AST 8 L (14-35) U/L Total Protein 5.2 L (6.2-8.2) g/dL Albumin 3.5 L (3.8-4.9) g/dL 06/10/23 Range/Units 11:43 WBC (4.50-10.00) X 10*3/uL RBC (4.40-5.60) X 10*6/uL Hgb (13.0-17.0) g/dL Hct (39.6-50.0) % RDW (11.5-14.5) % Immature Gran # (0.00-0.04) X 10*3/uL Neutrophils # (1.80-7.70) X 10*3/uL Eosinophils # (0.04-0.35) X 10*3/uL NRBC/100 WBC Diff (0.00-0.01) X 10*3/uL BUN/Creatinine Ratio (12.00-20.00) Ratio Glucose (70-110) mg/dL POC Glucose (mg/dL) 122 H (70-110) mg/dL AST (14-35) U/L Total Protein (6.2-8.2) g/dL Albumin (3.8-4.9) g/dL Microbiology - Last 24 Hours (Table) 06/07/23 12:11 Gram Stain - Final Sputum Sputum Culture - Final Pseudomonas aeruginosa 06/06/23 15:28 Blood Culture - Preliminary Blood 06/06/23 15:00 Blood Culture - Preliminary Blood Assessment and Plan Assessment: Acute COPD exacerbation with secondary shortness of breath, improved. Computed tomography scan of the chest was completed and it showed no evidence of pneumonia. There is extensive emphysema with upper lobe predominance right more than left. Covered with appropriate antibiotics. Started on IV cefepime. He has history of pseudomonal infections. Sputum culture this admission revealing Pseudomonas aeruginosa Chronic COPD with an FEV1 of 46% of predicted Chronic hypoxic respiratory failure, maintained on oxygen 3 L at home [id number] smoking history, the patient continues to smoke Hyperlipidemia Chronic anxiety Chronic osteoarthritis Previous history of SVT History of pseudomonal tracheobronchitis Plan: The patient was seen and evaluated Labs and medications reviewed Cleared for discharge from the pulmonary standpoint Continue his home pulmonary medications Continue antibiotics in the form of ciprofloxacin Decrease theophylline to once a day while taking Cipro Complete a prednisone taper Educated regarding complete smoking cessation NicoDerm patch in place Follow-up in our office in 1 week I have personally seen and examined the patient, performed the documentation and the assessment and plan as written. Number of minutes spent on the visit: 10.
== END 2023-06-10 12:31 | disposition home or self-care (01) | DRG 193 ==
LOC: EC 14:36 → 4SSUR 16:47 → OBSVTOIN 06-09 11:41
PROVIDERS: ADMIT Hospitalist; ATTEND Hospitalist
DX: J15.9 Unspecified bacterial pneumonia (principal); J96.21 Acute and chronic respiratory failure with hypoxia; J44.0 Chronic obstructive pulmonary disease with (acute) lower respiratory infection; J44.1 Chronic obstructive pulmonary disease with (acute) exacerbation; J98.11 Atelectasis; F17.210 Nicotine dependence, cigarettes, uncomplicated; E11.9 Type 2 diabetes mellitus without complications; E78.5 Hyperlipidemia, unspecified; E87.6 Hypokalemia; F41.9 Anxiety disorder, unspecified; I10 Essential (primary) hypertension; I25.2 Old myocardial infarction; J43.2 Centrilobular emphysema; K59.00 Constipation, unspecified; M19.90 Unspecified osteoarthritis, unspecified site; N40.0 Benign prostatic hyperplasia without lower urinary tract symptoms; Z99.81 Dependence on supplemental oxygen; Z11.52 Encounter for screening for COVID-19; Z79.51 Long term (current) use of inhaled steroids; Z79.82 Long term (current) use of aspirin; Z79.84 Long term (current) use of oral hypoglycemic drugs; Z79.899 Other long term (current) drug therapy; Z80.6 Family history of leukemia; Z82.5 Family history of asthma and other chronic lower respiratory diseases; Z83.3 Family history of diabetes mellitus; Z96.643 Presence of artificial hip joint, bilateral; Z87.01 Personal history of pneumonia (recurrent); Z86.19 Personal history of other infectious and parasitic diseases; Z87.440 Personal history of urinary (tract) infections; Z60.2 Problems related to living alone; Z88.0 Allergy status to penicillin; Z28.310 Unvaccinated for COVID-19; Z28.21 Immunization not carried out because of patient refusal
CPT/HCPCS: 36415; 71046; 80053; 83036; 83605; 83735; 84145; 85025; 85610; 85730; 87040; 87070; 87077; 87186; 87205; 87636; 93005; 94640; 94760; 96365; 96368; 96375; 99285

== ENCOUNTER 2023-06-12 16:22 | Emergency (ER) | payer MEDICARE ==
[2023-06-12 17:01] VITALS: BP 150/71; PULSE 84; RESP 18; TEMP 98
--- NOTE | 2023-06-12 17:14 | ED ---
SOB HPI - General Chief Complaint: Shortness of Breath Stated Complaint: sob Time Seen by Provider: 06/12/23 17:12 Source: patient, RN notes reviewed Mode of arrival: ambulatory Limitations: no limitations - History of Present Illness Initial Comments: Patient is a 77-year-old male presented to ER with chief complaint of dyspnea. Patient was recently treated for pneumonia inpatient here, discharged on friday. Patient states that his shortness of breath has not improved. Patient sent here by Dr. Peres. Patient normally wears 3 L of oxygen at night and states he sometimes does not wear oxygen during the day. He reports since discharge she has been wearing 3 to 3.5 L of oxygen throughout the day. Denies any chest pain, fevers, chills, night sweats. - Related Data Home Medications Medication Instructions Recorded Confirmed Aspirin 81 mg PO DAILY 07/17/16 06/06/23 Atorvastatin [Lipitor] 20 mg PO DAILY 07/17/16 06/06/23 Budesonide-Formot 160-4.5 Mcg 2 puff INHALATION RT-BID 07/17/16 06/06/23 [Symbicort 160-4.5 Mcg Inhaler] Metoprolol Tartrate [Lopressor] 25 mg PO DAILY 07/23/18 06/06/23 Ibuprofen [Motrin] 800 mg PO BID PRN 03/24/19 06/06/23 Albuterol Sulfate [Albuterol 2 puff PO RT-Q4H PRN 04/13/23 06/06/23 Sulfate Hfa] Theophylline 24 Hour [Sonido-24] 400 mg PO DAILY 04/13/23 06/06/23 Zolpidem [Ambien] 10 mg PO HS PRN 06/06/23 06/06/23 Previous Rx's Medication Instructions Recorded Acetaminophen Tab [Tylenol] 650 mg PO Q6HR PRN tab 04/18/23 Ipratropium-Albuterol Nebulize 3 ml INHALATION RT-Q4H #100 each 04/18/23 [Duoneb 0.5 mg-3 mg/3 ml Soln] Nicotine 21Mg/24Hr Patch [Habitrol] 1 patch TRANSDERM DAILY 15 Days 05/14/23 #15 patch cefUROXime axetiL [Cefuroxime] 500 mg PO BID 4 Days #8 tab 06/10/23 predniSONE 10 mg PO DAILY 8 Days #20 tab 06/10/23 Allergies Allergy/AdvReac Type Severity Reaction Status Date / Time Penicillins Allergy Unknown Verified 06/12/23 16:50 Review of Systems ROS Statement: Those systems with pertinent positive or pertinent negative responses have been documented in the HPI. ROS Other: All systems not noted in ROS Statement are negative. Past Medical History Past Medical History: Chest Pain / Angina, COPD, Diabetes Mellitus, Hyperlipidemia, Myocardial Infarction ([place]), Osteoarthritis (OA), Pneumonia, Prostate Disorder, Supraventricular Tachycardia (SVT) Additional Past Medical History / Comment(s): Chronic hypoxic respiratory failure with home oxygen pt mostly just wears at night, past acute hypoxic respiratory failure requiring bipap, newly diagnosed NIDDM type II, BPH, UTI Last Myocardial Infarction Date:: 2008 History of Any Multi-Drug Resistant Organisms: None Reported Past Surgical History: Back Surgery, Heart Catheterization, Hernia Repair, Joint Replacement, Orthopedic Surgery Additional Past Surgical History / Comment(s): microlaryngoscopy w/ lt vocal cord bx-neg, bronch-lung bx-neg, lt inguinal hernia, low back surgery, bilateral total hip arthroplasties, bilateral cataracts removed. Past Anesthesia/Blood Transfusion Reactions: No Reported Reaction Past Psychological History: No Psychological Hx Reported Smoking Status: Current every day smoker - Past Family History Mother Family Medical History: COPD, Diabetes Mellitus Father Family Medical History: COPD, Diabetes Mellitus Brother(s) Family Medical History: Cancer Additional Family Medical History / Comment(s): leukemia General Exam - General Exam Comments Initial Comments: Visual Physical Exam Vital signs reviewed General: Well-appearing, nontoxic, no acute distress. Head: Normocephalic, atraumatic Eyes: PERRLA, EOMI ENT: Airway patent Chest: Nonlabored breathing, mildly dyspneic with conversation Skin: No visual rash, normal skin tone Neuro: Alert and oriented 3 Musculoskeletal: No gross abnormalities Limitations: no limitations Course Vital Signs 06/12/23 16:48 Temperature 98 F Pulse Rate 84 Respiratory 18 Rate Blood Pressure 150/71 O2 Sat by Pulse 95 Oximetry Medical Decision Making - Medical Decision Making I performed the quick note portion of the exam. Electronically signed by Gemma Landon PA-C Patient eloped prior to completion of medical treatment. - Lab Data Result diagrams: 06/12/23 17:12 06/12/23 17:12 Lab Results 06/12/23 06/12/23 06/12/23 Range/Units 17:12 17:12 17:12 WBC 8.6 (3.8-10.6) k/uL RBC 4.32 (4.30-5.90) m/uL Hgb 12.9 L (13.0-17.5) gm/dL Hct 39.6 (39.0-53.0) % MCV 91.8 (80.0-100.0) fL MCH 30.0 (25.0-35.0) pg MCHC 32.7 (31.0-37.0) g/dL RDW 16.2 H (11.5-15.5) % Plt Count 188 (150-450) k/uL MPV 8.3 Neutrophils % 82 % Lymphocytes % 10 % Monocytes % 5 % Eosinophils % 0 % Basophils % 0 % Neutrophils # 7.1 (1.3-7.7) k/uL Lymphocytes # 0.9 L (1.0-4.8) k/uL Monocytes # 0.5 (0-1.0) k/uL Eosinophils # 0.0 (0-0.7) k/uL Basophils # 0.0 (0-0.2) k/uL Anisocytosis Slight PT 10.3 (10.0-12.5) sec INR 0.9 (<1.2) APTT 22.2 (22.0-30.0) sec Sodium 137 (137-145) mmol/L Potassium 4.6 (3.5-5.1) mmol/L Chloride 105 (98-107) mmol/L Carbon Dioxide 27 (22-30) mmol/L Anion Gap 5 mmol/L BUN 19 (9-20) mg/dL Creatinine 0.78 (0.66-1.25) mg/dL Est GFR (CKD-EPI)AfAm >90 (>60 ml/min/1.73 sqM) Est GFR (CKD-EPI)NonAf 88 (>60 ml/min/1.73 sqM) Glucose 171 H (74-99) mg/dL Calcium 9.0 (8.4-10.2) mg/dL Total Bilirubin 0.6 (0.2-1.3) mg/dL AST 18 (17-59) U/L ALT 23 (4-49) U/L Alkaline Phosphatase 73 (38-126) U/L Troponin I (0.000-0.034) ng/mL Total Protein 5.7 L (6.3-8.2) g/dL Albumin 3.6 (3.5-5.0) g/dL Influenza Type A (PCR) (Not Detectd) Influenza Type B (PCR) (Not Detectd) RSV (PCR) (Not Detectd) SARS-CoV-2 (PCR) (Not Detectd) 06/12/23 06/12/23 Range/Units 17:12 17:12 WBC (3.8-10.6) k/uL RBC (4.30-5.90) m/uL Hgb (13.0-17.5) gm/dL Hct (39.0-53.0) % MCV (80.0-100.0) fL MCH (25.0-35.0) pg MCHC (31.0-37.0) g/dL RDW (11.5-15.5) % Plt Count (150-450) k/uL MPV Neutrophils % % Lymphocytes % % Monocytes % % Eosinophils % % Basophils % % Neutrophils # (1.3-7.7) k/uL Lymphocytes # (1.0-4.8) k/uL Monocytes # (0-1.0) k/uL Eosinophils # (0-0.7) k/uL Basophils # (0-0.2) k/uL Anisocytosis PT (10.0-12.5) sec INR (<1.2) APTT (22.0-30.0) sec Sodium (137-145) mmol/L Potassium (3.5-5.1) mmol/L Chloride (98-107) mmol/L Carbon Dioxide (22-30) mmol/L Anion Gap mmol/L BUN (9-20) mg/dL Creatinine (0.66-1.25) mg/dL Est GFR (CKD-EPI)AfAm (>60 ml/min/1.73 sqM) Est GFR (CKD-EPI)NonAf (>60 ml/min/1.73 sqM) Glucose (74-99) mg/dL Calcium (8.4-10.2) mg/dL Total Bilirubin (0.2-1.3) mg/dL AST (17-59) U/L ALT (4-49) U/L Alkaline Phosphatase (38-126) U/L Troponin I 0.017 (0.000-0.034) ng/mL Total Protein (6.3-8.2) g/dL Albumin (3.5-5.0) g/dL Influenza Type A (PCR) Not Detected (Not Detectd) Influenza Type B (PCR) Not Detected (Not Detectd) RSV (PCR) Not Detected (Not Detectd) SARS-CoV-2 (PCR) Not Detected (Not Detectd) Disposition Clinical Impression: Left against medical advice Disposition: LEFT AGAINST MEDICAL ADVICE Condition: Undetermined Referrals: Britni Peres MD [Primary Care Provider] - 1-2 days Time of Disposition: 11:51
[2023-06-12 17:44] LABS: Anisocytosis Slight; Basophils % (A) 0 %; Eosinophils % (A) 0 %; HCT 39.6 % (39.0-53.0); HGB 12.9 gm/dL (13.0-17.5); Lymphocytes # (A) 0.9 k/uL (1.0-4.8); Lymphocytes % (A) 10 %; MCHC 32.7 g/dL (31.0-37.0); MCV 91.8 fL (80.0-100.0); Mean Platelet Volume 8.3; Monocytes # (A) 0.5 k/uL (0-1.0); Monocytes % (A) 5 %; Neutrophils # (A) 7.1 k/uL (1.3-7.7); Neutrophils % (A) 82 %; Platelet Count 188 k/uL (150-450); RBC 4.32 m/uL (4.30-5.90); RDW 16.2 % (11.5-15.5); WBC 8.6 k/uL (3.8-10.6)
--- NOTE | 2023-06-12 17:54 | XR ---
EXAMINATION TYPE: XR chest 2V DATE OF EXAM: 06/12/2023 COMPARISON: 06/06/2023 HISTORY: 77 year-old male shortness of breath, difficulty breathing TECHNIQUE: PA and lateral views FINDINGS: Heart normal size. Aorta and pulmonary vasculature within normal limits. Hyperinflation. Pleural pare nchymal scarring at the right base with blunted lateral costophrenic angle. Scattered and interstitia l densities probably areas of scarring or fibrosis. IMPRESSION: COPD and suspected areas of chronic pleural parenchymal scarring and fibrosis. The previous left arnaldo hilar opacity shows some interval improvement. Minimal residual infiltrate may remain.
[2023-06-12 18:01] LABS: INR 0.9 (<1.2); Partial Thromboplastin Time 22.2 sec (22.0-30.0); Prothrombin Time 10.3 sec (10.0-12.5)
[2023-06-12 18:12] LABS: ALT 23 U/L (4-49); AST 18 U/L (17-59); African American GFR (CKD) >90 (>60 ml/min/1.73 sqM); Albumin 3.6 g/dL (3.5-5.0); Alkaline Phosphatase 73 U/L (38-126); Anion Gap 5 mmol/L; Blood Urea Nitrogen 19 mg/dL (9-20); Carbon Dioxide 27 mmol/L (22-30); Chloride 105 mmol/L (98-107); Glucose 171 mg/dL (74-99); Non-African American GFR(CKD) 88 (>60 ml/min/1.73 sqM); Potassium 4.6 mmol/L (3.5-5.1); Sodium 137 mmol/L (137-145); Total Bilirubin 0.6 mg/dL (0.2-1.3); Total Protein 5.7 g/dL (6.3-8.2)
== END 2023-06-12 22:08 | disposition left against medical advice (07) ==
LOC: EC 16:22
DX: R06.02 Shortness of breath (principal); J44.9 Chronic obstructive pulmonary disease, unspecified; E11.9 Type 2 diabetes mellitus without complications; I25.2 Old myocardial infarction; E78.5 Hyperlipidemia, unspecified; F17.200 Nicotine dependence, unspecified, uncomplicated; Z20.822 Contact with and (suspected) exposure to COVID-19; Z53.29 Procedure and treatment not carried out because of patient's decision for other reasons; Z98.41 Cataract extraction status, right eye; Z98.42 Cataract extraction status, left eye; Z88.0 Allergy status to penicillin; Z79.51 Long term (current) use of inhaled steroids; Z79.899 Other long term (current) drug therapy
CPT/HCPCS: 36415; 71046; 80053; 84484; 85025; 85610; 85730; 87636; 93005; 99284

== ENCOUNTER 2023-11-11 10:14 | Emergency (ER) | payer MEDICARE ==
[2023-11-11] MEDS: IPRATROPIUM-ALBUTEROL 3 ML NEB INHALATION STA (10:42)
[2023-11-11] MEDS: ALBUTEROL NEBULIZED 2.5 MG/3 ML INHALATION STA (10:42)
[2023-11-11] MEDS: methylPREDNISolone SOD SUCCI 125 MG/2 ML VIAL IV STA (10:50)
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
[2023-11-11] MEDS: DIPH,PERTUS(ACELL)TETVAC-LF 0.5 ML VIAL IM ONE (10:58)
[2023-11-11 11:06] LABS: ALT 25 U/L (4-49); African American GFR (CKD) >90 (>60 ml/min/1.73 sqM); Anion Gap 8 mmol/L; Blood Urea Nitrogen 16 mg/dL (9-20); Calcium 9.4 mg/dL (8.4-10.2); Carbon Dioxide 24 mmol/L (22-30); Chloride 109 mmol/L (98-107); Glucose 172 mg/dL (74-99); Non-African American GFR(CKD) 89 (>60 ml/min/1.73 sqM); Sodium 141 mmol/L (137-145)
[2023-11-11 11:10] LABS: Anisocytosis Slight; HCT 41.2 % (39.0-53.0); HGB 12.8 gm/dL (13.0-17.5); Hypochromasia Slight; MCH 28.6 pg (25.0-35.0); MCHC 31.1 g/dL (31.0-37.0); MCV 91.9 fL (80.0-100.0); Mean Platelet Volume 12.3; Platelet Count 122 k/uL (150-450); RBC 4.48 m/uL (4.30-5.90); WBC 8.5 k/uL (3.8-10.6)
[2023-11-11 11:26] LABS: AST 45 U/L (17-59); Albumin 3.9 g/dL (3.5-5.0); INR 0.9 (<1.2); Potassium 4.7 mmol/L (3.5-5.1); Prothrombin Time 9.8 sec (10.0-12.5); Total Bilirubin 0.9 mg/dL (0.2-1.3); Total Protein 6.4 g/dL (6.3-8.2)
[2023-11-11 11:27] LABS: Alkaline Phosphatase 56 U/L (38-126)
[2023-11-11 11:34] LABS: Neutrophils % (M) 89 %; Nucleated Red Blood Cells 0 /100 WBC (0-0); Total Cells Counted 100
[2023-11-11 11:37] LABS: Lymphocytes # (M) 0.34 k/uL (1.0-4.8); Neutrophils # (M) 7.57 k/uL (1.3-7.7)
[2023-11-11 11:42] LABS: Partial Thromboplastin Time 19.2 sec (22.0-30.0)
--- NOTE | 2023-11-11 12:35 | XR ---
EXAMINATION TYPE: XR chest 2V DATE OF EXAM: 11/11/2023 COMPARISON: 06/12/2023 INDICATION: Difficulty breathing TECHNIQUE: Frontal and lateral views of the chest are obtained. FINDINGS: The heart size is normal. The pulmonary vasculature is normal. There appears to be some mild bibasilar infiltrates. Correlate for subsegmental atelectasis. Early pn eumonia could be considered. Follow-up can be performed as clinically indicated.. IMPRESSION: 1. Mild bibasilar infiltrates. Correlate for Atelectasis or pneumonia.
[2023-11-11] MEDS: BACITRACIN OINT 1 EACH PACKET TOPICAL ONE (13:24)
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
[2023-11-11 15:35] VITALS: BP 142/93; PULSE 84; RESP 18; TEMP 98
== END 2023-11-11 15:53 | disposition home or self-care (01) ==
LOC: EC 10:14
DX: T20.20XA Burn of second degree of head, face, and neck, unspecified site, initial encounter (principal); T31.0 Burns involving less than 10% of body surface; J44.1 Chronic obstructive pulmonary disease with (acute) exacerbation; F17.200 Nicotine dependence, unspecified, uncomplicated; Z88.0 Allergy status to penicillin; Z23 Encounter for immunization; X08.8XXA Exposure to other specified smoke, fire and flames, initial encounter
CPT/HCPCS: 36415; 94640; 93005; 80053; 83605; 85025; 85610; 85730; 71046; 90715; 99291; 90471; 96374; J2919

== ENCOUNTER 2023-11-25 23:43 | Inpatient (IN) | payer MEDICARE ==
[2023-11-26 00:13] LABS: Glucose,Whole Blood 114 mg/dL (70-110)
[2023-11-26 00:58] LABS: Anisocytosis Slight; Basophils % (A) 0 %; Eosinophils # (A) 0.1 k/uL (0-0.7); Eosinophils % (A) 1 %; HCT 39.1 % (39.0-53.0); HGB 12.6 gm/dL (13.0-17.5); Hypochromasia Slight; Lymphocytes # (A) 0.8 k/uL (1.0-4.8); Lymphocytes % (A) 9 %; MCH 28.1 pg (25.0-35.0); MCHC 32.3 g/dL (31.0-37.0); MCV 87.1 fL (80.0-100.0); Mean Platelet Volume 8.5; Monocytes # (A) 0.6 k/uL (0-1.0); Monocytes % (A) 8 %; Neutrophils # (A) 6.5 k/uL (1.3-7.7); Neutrophils % (A) 80 %; Platelet Count 179 k/uL (150-450); RBC 4.49 m/uL (4.30-5.90); RDW 17.3 % (11.5-15.5); WBC 8.1 k/uL (3.8-10.6)
[2023-11-26 01:02] LABS: ALT 29 U/L (4-49); AST 24 U/L (17-59); African American GFR (CKD) 58 (>60 ml/min/1.73 sqM); Albumin 3.7 g/dL (3.5-5.0); Alkaline Phosphatase 89 U/L (38-126); Anion Gap 10 mmol/L; Blood Urea Nitrogen 17 mg/dL (9-20); Calcium 9.5 mg/dL (8.4-10.2); Carbon Dioxide 19 mmol/L (22-30); Chloride 104 mmol/L (98-107); Glucose 108 mg/dL (74-99); Non-African American GFR(CKD) 50 (>60 ml/min/1.73 sqM); Potassium 4.6 mmol/L (3.5-5.1); Sodium 133 mmol/L (137-145); Total Bilirubin 0.6 mg/dL (0.2-1.3); Total Protein 6.1 g/dL (6.3-8.2)
[2023-11-26 01:13] LABS: Prothrombin Time 10.5 sec (10.0-12.5)
--- NOTE | 2023-11-26 02:26 | XR ---
EXAM: XR Chest, 2 Views CLINICAL HISTORY: Difficulty breathing TECHNIQUE: Frontal and lateral views of the chest. COMPARISON: Chest 2 views dated 11/11/2023 FINDINGS: Lungs: Similar subsegmental opacities with similar curvilinear components at the lung bases. No significant radiographic alteration from the prior examination. Pleural space: Unremarkable. No pneumothorax. No large pleural effusion. Heart: The cardiac silhouette is stable and within normal limits. Mediastinum: The mediastinal contours are stable. The trachea is midline, accounting for obliquity. Bones/joints: Multilevel degenerative changes of the thoracic spine. Severe degenerative changes of the shoulders. No acute osseous abnormality. IMPRESSION: Similar subsegmental opacities with similar curvilinear components at the lung bases. No significant radiographic alteration from the prior examination. Differential consideration remains bibasilar atelectasis or consolidation. Relative stability suggests chronic underlying changes rather than infectious etiology. Please correlate clinically. No pleural effusion or pneumothorax.
[2023-11-26] MEDS: methylPREDNISolone SOD SUCCI 125 MG/2 ML VIAL IV STA (03:04)
[2023-11-26] MEDS: ACETAMINOPHEN TAB 325 MG TAB PO STA (03:10)
[2023-11-26] MEDS: IPRATROPIUM-ALBUTEROL 3 ML NEB INHALATION STA (03:28)
[2023-11-26] MEDS: AZITHROMYCIN 500 MG in SODIUM CHLORIDE 0.9% 250 ML IVPB STA (03:45)
[2023-11-26] MEDS: SODIUM CHLORIDE 0.9% 500 ML 500 ML IV STA (04:55)
--- NOTE | 2023-11-26 05:31 | CT ---
EXAM: CT Angiography Chest With Intravenous Contrast CLINICAL HISTORY: Reason: dyspnea, possible PE TECHNIQUE: Axial computed tomographic angiography images of the chest with intravenous contrast. CTDI is 38.1 mGy and DLP is 576.8 mGy-cm. This CT exam was performed using one or more of the following dose reduction techniques: automated exposure control, adjustment of the mA and/or kV according to patient size, and/or use of iterative reconstruction technique. MIP reconstructed images were created and reviewed. COMPARISON: 05/12/23 FINDINGS: Exam mildly limited due to patient respiratory motion. Pulmonary arteries: Unremarkable. No pulmonary embolism. Aorta: No acute findings. No thoracic aortic aneurysm or dissection. Lungs: Severe emphysematous changes, with upper lobe bulla, biapical and bibasilar scarring, and architectural distortion. No evidence of acute airspace consolidation. No pulmonary edema. Pleural space: Trace right pleural effusion. No pneumothorax. Calcified pleural plaques along the posterior lower lobes. Heart: No cardiomegaly. No pericardial effusion. Moderate coronary artery calcifications. No evidence of right ventricular dysfunction. Bones/joints: No acute fracture. No dislocation. Soft tissues: Unremarkable. Lymph nodes: Unremarkable. No enlarged lymph nodes. IMPRESSION: No evidence of pulmonary embolism. No thoracic aortic aneurysmal dilatation or dissection. Severe emphysematous changes. No evidence of acute airspace consolidation, pulmonary edema or pneumothorax. Trace right pleural effusion.
[2023-11-26] MEDS ORDERED: NALOXONE 0.4 MG/ML 1 ML VIAL IVP PRN (06:33)
[2023-11-26] MEDS ORDERED: IPRATROPIUM-ALBUTEROL 3 ML NEB INHALATION PRN (06:33)
[2023-11-26] MEDS ORDERED: ACETAMINOPHEN TAB 325 MG TAB PO PRN (06:33)
[2023-11-26] MEDS ORDERED: ALBUTEROL NEBULIZED 2.5 MG/3 ML INHALATION PRN (06:35)
[2023-11-26] MEDS ORDERED: HEPARIN SODIUM 1,000 UN/ML (10ML VL) IV PRN (07:49)
--- NOTE | 2023-11-26 07:49 | ED ---
SOB HPI - General Chief Complaint: Shortness of Breath Stated Complaint: Difficulty Breathing Time Seen by Provider: 11/26/23 00:40 Source: patient, family Mode of arrival: wheelchair Limitations: no limitations - History of Present Illness Initial Comments: This patient is a 78-year-old man with history of COPD who presents to have evaluation for worsening of his symptoms. Patient states that he has been having worsening of symptoms going on since yesterday morning. Patient had also been cutting hay and grass and thinks that that may have contributed. He has tried using his inhaled medications but only having minimal relief. He has not noted any sputum but he does have cough. No chest pain. No fever or chills noted. Patient denies edema, change in urination or bowel movements. MD Complaint: shortness of breath Onset/Timin -: days(s) Severity scale (1-10): 0 Consistency: constant Improves With: bronchodilators Worsens With: nothing Known History Of: COPD, asthma Associated Symptoms: cough Treatments Prior to Arrival: none - Related Data Home Oxygen Therapy: No Home Medications Medication Instructions Recorded Confirmed Aspirin 81 mg PO DAILY 07/17/16 11/30/23 Budesonide-Formot 160-4.5 Mcg 2 puff INHALATION RT-BID 07/17/16 11/30/23 [Symbicort 160-4.5 Mcg Inhaler] Albuterol Sulfate [Albuterol 2 puff PO RT-Q4H PRN 04/13/23 11/30/23 Sulfate Hfa] Cetirizine HCl [Zyrtec] 10 mg PO DAILY 11/26/23 11/30/23 Empagliflozin [Jardiance] 10 mg PO DAILY 11/26/23 11/30/23 Famotidine [Pepcid] 20 mg PO BID 11/26/23 11/30/23 Ipratropium-Albuterol Nebulize 3 ml INHALATION RT-Q4H 11/26/23 11/30/23 [Duoneb 0.5 mg-3 mg/3 ml Soln] Montelukast [Singulair] 10 mg PO DAILY 11/26/23 11/30/23 Multivit-Mins/Iron/Folic/Lycop 1 tab PO DAILY 11/26/23 11/30/23 [Centrum Men's Tablet] Nicotine 21Mg/24Hr Patch [Habitrol] 1 patch TRANSDERM DAILY PRN 11/26/23 11/30/23 Tamsulosin [Flomax] 0.4 mg PO DAILY 11/26/23 11/30/23 Zolpidem [Ambien] 5 mg PO HS PRN 11/26/23 11/30/23 buPROPion HCL [buPROPion HCL SR] 100 mg PO DAILY 11/26/23 11/30/23 metFORMIN HCL 500 mg PO BID 11/26/23 11/30/23 tiZANidine [Zanaflex] 4 mg PO DAILY PRN 11/26/23 11/30/23 Previous Rx's Medication Instructions Recorded predniSONE 10 mg PO DAILY 8 Days #20 tab 06/10/23 Atorvastatin [Lipitor] 40 mg PO DAILY #30 tab 11/29/23 Metoprolol Tartrate [Lopressor] 25 mg PO BID #60 tab 11/29/23 Allergies Allergy/AdvReac Type Severity Reaction Status Date / Time Penicillins Allergy Rash/Hives Verified 11/26/23 09:43 Review of Systems ROS Statement: Those systems with pertinent positive or pertinent negative responses have been documented in the HPI. ROS Other: All systems not noted in ROS Statement are negative. Constitutional: Denies: fever, chills, weakness Respiratory: Reports: cough, dyspnea, wheezes. Denies: hemoptysis, stridor Cardiovascular: Reports: dyspnea on exertion. Denies: chest pain, palpitations, orthopnea, edema, syncope Gastrointestinal: Denies: abdominal pain, nausea, vomiting, diarrhea Genitourinary: Denies: dysuria, hematuria Musculoskeletal: Denies: back pain Skin: Denies: rash Neurological: Denies: headache, weakness, numbness Psychiatric: Reports: anxiety Past Medical History Past Medical History: Chest Pain / Angina, COPD, Diabetes Mellitus, Hyperlipidemia, Myocardial Infarction (IN), Osteoarthritis (OA), Pneumonia, Prostate Disorder, Supraventricular Tachycardia (SVT) Additional Past Medical History / Comment(s): Chronic hypoxic respiratory failure with home oxygen pt mostly just wears at night, past acute hypoxic respiratory failure requiring bipap, newly diagnosed NIDDM type II, BPH, UTI Last Myocardial Infarction Date:: 2008 History of Any Multi-Drug Resistant Organisms: None Reported Past Surgical History: Back Surgery, Heart Catheterization, Hernia Repair, Joint Replacement, Orthopedic Surgery Additional Past Surgical History / Comment(s): microlaryngoscopy w/ lt vocal cord bx-neg, bronch-lung bx-neg, lt inguinal hernia, low back surgery, bilateral total hip arthroplasties, bilateral cataracts removed. Past Anesthesia/Blood Transfusion Reactions: No Reported Reaction Past Psychological History: No Psychological Hx Reported Smoking Status: Current every day smoker - Past Family History Mother Family Medical History: COPD, Diabetes Mellitus Father Family Medical History: COPD, Diabetes Mellitus Brother(s) Family Medical History: Cancer Additional Family Medical History / Comment(s): leukemia General Exam Limitations: no limitations General appearance: alert, in distress Head exam: Present: atraumatic, normocephalic Eye exam: Present: normal appearance. Absent: scleral icterus, conjunctival injection ENT exam: Present: normal oropharynx Neck exam: Present: normal inspection, full ROM. Absent: meningismus Respiratory exam: Present: respiratory distress, wheezes. Absent: rales, rhonchi, stridor, chest wall tenderness, accessory muscle use Cardiovascular Exam: Present: normal rhythm, tachycardia, normal heart sounds. Absent: systolic murmur, diastolic murmur, rubs, gallop GI/Abdominal exam: Present: soft. Absent: distended, tenderness, guarding, rebound, rigid, mass Extremities exam: Present: normal inspection, normal capillary refill. Absent: pedal edema, calf tenderness Back exam: Present: normal inspection. Absent: CVA tenderness (R), CVA tenderness (L) Neurological exam: Present: alert Skin exam: Present: warm, dry, intact, normal color. Absent: rash Course Vital Signs 11/25/23 11/26/23 11/26/23 23:46 02:13 03:09 Temperature 100.3 F H 101.3 F H 99.2 F Pulse Rate 127 H 116 H 109 H Respiratory 30 H 22 26 H Rate Blood Pressure 108/65 113/67 89/59 O2 Sat by Pulse 97 96 95 Oximetry Fraction of Inspired Oxygen (FIO2) 11/26/23 11/26/23 11/26/23 03:30 03:44 04:46 Temperature 98.6 F Pulse Rate 114 H 112 H 84 Respiratory 20 16 Rate Blood Pressure 87/48 O2 Sat by Pulse 97 Oximetry Fraction of Inspired Oxygen (FIO2) 11/26/23 11/26/23 11/26/23 05:24 06:46 07:13 Temperature 98.0 F 98.1 F Pulse Rate 82 85 92 Respiratory 22 20 24 Rate Blood Pressure 87/42 97/60 104/59 O2 Sat by Pulse 99 99 95 Oximetry Fraction of Inspired Oxygen (FIO2) 11/26/23 11/26/23 11/26/23 08:20 08:30 08:33 Temperature Pulse Rate 86 85 Respiratory 22 Rate Blood Pressure 96/59 O2 Sat by Pulse 98 Oximetry Fraction of 35 Inspired Oxygen (FIO2) 11/26/23 11/26/23 11/26/23 08:42 08:58 10:05 Temperature 97.6 F Pulse Rate 89 90 80 Respiratory 20 Rate Blood Pressure 103/55 103/53 O2 Sat by Pulse 99 Oximetry Fraction of Inspired Oxygen (FIO2) 11/26/23 11/26/23 11/26/23 11:26 12:25 12:51 Temperature 97.6 F Pulse Rate 60 59 L 65 Respiratory 18 20 Rate Blood Pressure 104/56 101/53 O2 Sat by Pulse 97 98 Oximetry Fraction of Inspired Oxygen (FIO2) 11/26/23 11/26/23 11/26/23 13:01 14:25 15:46 Temperature 97.6 F Pulse Rate 65 71 77 Respiratory 22 Rate Blood Pressure 101/57 O2 Sat by Pulse 99 Oximetry Fraction of Inspired Oxygen (FIO2) 11/26/23 11/26/23 15:54 17:01 Temperature 98.3 F Pulse Rate 75 74 Respiratory 20 Rate Blood Pressure 119/68 O2 Sat by Pulse 99 Oximetry Fraction of Inspired Oxygen (FIO2) Medical Decision Making - Medical Decision Making 78-year-old man with dyspnea. The patient's clinical picture does look like ma inly COPD exacerbation. The patient however did have lateral T inversions on the ECG that were new and minimal elevation of troponin. The patient's heart rate did slow and this appears to have aided his symptoms. The second troponin is stable and at this point does not look like acute IN. The patient had chest x-ray that I interpreted as negative for acute infiltrate, pneumothorax, congestive heart failure. There is COPD evident The patient had CT angiogram of the chest that was negative for acute pulmonary embolism. COPD is present Was pt. sent in by a medical professional or institution (, PA, PHOTOENGRAVING PROOFER, urgent care, hospital, or skilled nursing...) When possible be specific @ -[No] Did you speak to anyone other than the patient for history (EMS, parent, family, police, friend...)? What history was obtained from this source @ -[No] Did you review nursing and triage notes (agree or disagree)? Why? @ -[I reviewed and agree with nursing and triage notes] Were old charts reviewed (outside hosp., previous admission, EMS record, old EKG, old radiological studies, urgent care reports/EKG's, skilled nursing records)? Report findings @ -[No old charts were reviewed] Differential Diagnosis (chest pain, altered mental status, abdominal pain women, abdominal pain men, vaginal bleeding, weakness, fever, dyspnea, syncope, headache, dizziness, GI bleed, back pain, seizure, CVA, palpatations, mental health, musculoskeletal)? @ -[Differential Dyspnea: Coronary syndrome, arrhythmia, tamponade, asthma, COPD, pulmonary embolism, pneumonia, pneumothorax, pulmonary effusion, anaphylaxis, diabetic ketoacidosis, flailed chest, pulmonary contusion, diaphragmatic rupture, anemia, neuromus cular, this is not meant to be an all-inclusive list. EKG interpreted by me (3pts min.). @ -I interpreted as above X-rays interpreted by me (1pt min.). @ -[I interpreted as above CT interpreted by me (1pt min.). @ -I interpreted as above U/S interpreted by me (1pt. min.). @ -[None done] What testing was considered but not performed or refused? (CT, X-rays, U/S, labs)? Why? @ -[None] What meds were considered but not given or refused? Why? @ -[None] Did you discuss the management of the patient with other professionals (professionals i.e. , PA, PHOTOENGRAVING PROOFER, lab, RT, psych nurse, social services counselor, auxiliary equipment operator, teacher, police officer crime prevention, rifle case repairer)? Give summary @ -[Discussed with admitting physician and treatment recommendations are incorporated Was smoking cessation discussed for >3mins.? @ -[No] Was critical care preformed (if so, how long)? @ -[yes, 30 minutes Were there social determinants of health that impacted care today? How? (Homelessness, low income, unemployed, alcoholism, drug addiction, transportation, low edu. Level, literacy, decrease access to med. care, assisted, rehab)? @ -[No] Was there de-escalation of care discussed even if they declined (Discuss DNR or withdrawal of care, Hospice)? DNR status @ -[No] What co-morbidities impacted this encounter? (DM, HTN, Smoking, COPD, CAD, Cancer, CVA, ARF, Chemo, Hep., AIDS, mental health diagnosis, sleep apnea, morbid obesity)? @ -[COPD, diabetes, hypertension, history of SVT Was patient admitted / discharged? Hospital course, mention meds given and route, prescriptions, significant lab abnormalities, going to OR and other pertinent info. @ -[Patient is a 78-year-old man here to have evaluation of dyspnea. The patient does have COPD exacerbation. As noted above, there are ECG changes and patient will have cardiology consultation Undiagnosed new problem with uncertain prognosis? @ -[No] Drug Therapy requiring intensive monitoring for toxicity (Heparin, Nitro, Insulin, Cardizem)? @ -[No] Were any procedures done? @ -[No] Diagnosis/symptom? @ -[Acute dyspnea COPD exacerbation Acute, or Chronic, or Acute on Chronic? @ -[Acute Uncomplicated (without systemic symptoms) or Complicated (systemic symptoms)? @ -Complicated by dyspnea Side effects of treatment? @ -[No] Exacerbation, Progression, or Severe Exacerbation? @ -[No] Poses a threat to life or bodily function? How? (Chest pain, USA, IN, pneumonia, PE, COPD, DKA, ARF, appy, cholecystitis, CVA, Diverticulitis, Homicidal, Suicidal, threat to staff... and all critical care pts) @ -[Yes - Lab Data Result diagrams: 11/29/23 07:51 11/29/23 07:51 Lab Results 11/26/23 11/26/23 11/26/23 Range/Units 00:12 00:12 00:12 WBC 8.1 (3.8-10.6) k/uL RBC 4.49 (4.30-5.90) m/uL Hgb 12.6 L (13.0-17.5) gm/dL Hct 39.1 (39.0-53.0) % MCV 87.1 (80.0-100.0) fL MCH 28.1 (25.0-35.0) pg MCHC 32.3 (31.0-37.0) g/dL RDW 17.3 H (11.5-15.5) % Plt Count 179 (150-450) k/uL MPV 8.5 Neutrophils % 80 % Lymphocytes % 9 % Monocytes % 8 % Eosinophils % 1 % Basophils % 0 % Neutrophils # 6.5 (1.3-7.7) k/uL Lymphocytes # 0.8 L (1.0-4.8) k/uL Monocytes # 0.6 (0-1.0) k/uL Eosinophils # 0.1 (0-0.7) k/uL Basophils # 0.0 (0-0.2) k/uL Hypochromasia Slight Anisocytosis Slight PT 10.5 (10.0-12.5) sec INR 1.0 (<1.2) APTT 26.0 (22.0-30.0) sec D-Dimer (<0.60) mg/L FEU Sodium (137-145) mmol/L Potassium (3.5-5.1) mmol/L Chloride (98-107) mmol/L Carbon Dioxide (22-30) mmol/L Anion Gap mmol/L BUN (9-20) mg/dL Creatinine (0.66-1.25) mg/dL Est GFR (CKD-EPI)AfAm (>60 ml/min/1.73 sqM) Est GFR (CKD-EPI)NonAf (>60 ml/min/1.73 sqM) Glucose (74-99) mg/dL POC Glucose (mg/dL) 114 H (70-110) mg/dL POC Glu Weight Loss Consultant ID Praneeth Rojas Lactic Ac Sepsis Rflx Plasma Lactic Acid Jakub (0.7-2.0) mmol/L Calcium (8.4-10.2) mg/dL Total Bilirubin (0.2-1.3) mg/dL AST (17-59) U/L ALT (4-49) U/L Alkaline Phosphatase (38-126) U/L Troponin I (0.000-0.034) ng/mL Total Protein (6.3-8.2) g/dL Albumin (3.5-5.0) g/dL Procalcitonin (0.02-0.50) ng/mL Influenza Type A (PCR) (Not Detectd) Influenza Type B (PCR) (Not Detectd) RSV (PCR) (Not Detectd) SARS-CoV-2 (PCR) (Not Detectd) 11/26/23 11/26/23 11/26/23 Range/Units 00:12 00:12 00:12 WBC (3.8-10.6) k/uL RBC (4.30-5.90) m/uL Hgb (13.0-17.5) gm/dL Hct (39.0-53.0) % MCV (80.0-100.0) fL MCH (25.0-35.0) pg MCHC (31.0-37.0) g/dL RDW (11.5-15.5) % Plt Count (150-450) k/uL MPV Neutrophils % % Lymphocytes % % Monocytes % % Eosinophils % % Basophils % % Neutrophils # (1.3-7.7) k/uL Lymphocytes # (1.0-4.8) k/uL Monocytes # (0-1.0) k/uL Eosinophils # (0-0.7) k/uL Basophils # (0-0.2) k/uL Hypochromasia Anisocytosis PT (10.0-12.5) sec INR (<1.2) APTT (22.0-30.0) sec D-Dimer (<0.60) mg/L FEU Sodium 133 L (137-145) mmol/L Potassium 4.6 (3.5-5.1) mmol/L Chloride 104 (98-107) mmol/L Carbon Dioxide 19 L (22-30) mmol/L Anion Gap 10 mmol/L BUN 17 (9-20) mg/dL Creatinine 1.36 H (0.66-1.25) mg/dL Est GFR (CKD-EPI)AfAm 58 (>60 ml/min/1.73 sqM) Est GFR (CKD-EPI)NonAf 50 (>60 ml/min/1.73 sqM) Glucose 108 H (74-99) mg/dL POC Glucose (mg/dL) (70-110) mg/dL POC Glu Weight Loss Consultant ID Lactic Ac Sepsis Rflx Plasma Lactic Acid Jakub 2.1 H* (0.7-2.0) mmol/L Calcium 9.5 (8.4-10.2) mg/dL Total Bilirubin 0.6 (0.2-1.3) mg/dL AST 24 (17-59) U/L ALT 29 (4-49) U/L Alkaline Phosphatase 89 (38-126) U/L Troponin I 0.087 H* (0.000-0.034) ng/mL Total Protein 6.1 L (6.3-8.2) g/dL Albumin 3.7 (3.5-5.0) g/dL Procalcitonin (0.02-0.50) ng/mL Influenza Type A (PCR) (Not Detectd) Influenza Type B (PCR) (Not Detectd) RSV (PCR) (Not Detectd) SARS-CoV-2 (PCR) (Not Detectd) 11/26/23 11/26/23 11/26/23 Range/Units 00:12 00:12 01:48 WBC (3.8-10.6) k/uL RBC (4.30-5.90) m/uL Hgb (13.0-17.5) gm/dL Hct (39.0-53.0) % MCV (80.0-100.0) fL MCH (25.0-35.0) pg MCHC (31.0-37.0) g/dL RDW (11.5-15.5) % Plt Count (150-450) k/uL MPV Neutrophils % % Lymphocytes % % Monocytes % % Eosinophils % % Basophils % % Neutrophils # (1.3-7.7) k/uL Lymphocytes # (1.0-4.8) k/uL Monocytes # (0-1.0) k/uL Eosinophils # (0-0.7) k/uL Basophils # (0-0.2) k/uL Hypochromasia Anisocytosis PT (10.0-12.5) sec INR (<1.2) APTT (22.0-30.0) sec D-Dimer 1.39 H (<0.60) mg/L FEU Sodium (137-145) mmol/L Potassium (3.5-5.1) mmol/L Chloride (98-107) mmol/L Carbon Dioxide (22-30) mmol/L Anion Gap mmol/L BUN (9-20) mg/dL Creatinine (0.66-1.25) mg/dL Est GFR (CKD-EPI)AfAm (>60 ml/min/1.73 sqM) Est GFR (CKD-EPI)NonAf (>60 ml/min/1.73 sqM) Glucose (74-99) mg/dL POC Glucose (mg/dL) (70-110) mg/dL POC Glu Weight Loss Consultant ID Lactic Ac Sepsis Rflx Y Plasma Lactic Acid Jakub (0.7-2.0) mmol/L Calcium (8.4-10.2) mg/dL Total Bilirubin (0.2-1.3) mg/dL AST (17-59) U/L ALT (4-49) U/L Alkaline Phosphatase (38-126) U/L Troponin I (0.000-0.034) ng/mL Total Protein (6.3-8.2) g/dL Albumin (3.5-5.0) g/dL Procalcitonin 0.22 (0.02-0.50) ng/mL Influenza Type A (PCR) (Not Detectd) Influenza Type B (PCR) (Not Detectd) RSV (PCR) (Not Detectd) SARS-CoV-2 (PCR) (Not Detectd) 11/26/23 Range/Units 02:01 WBC (3.8-10.6) k/uL RBC (4.30-5.90) m/uL Hgb (13.0-17.5) gm/dL Hct (39.0-53.0) % MCV (80.0-100.0) fL MCH (25.0-35.0) pg MCHC (31.0-37.0) g/dL RDW (11.5-15.5) % Plt Count (150-450) k/uL MPV Neutrophils % % Lymphocytes % % Monocytes % % Eosinophils % % Basophils % % Neutrophils # (1.3-7.7) k/uL Lymphocytes # (1.0-4.8) k/uL Monocytes # (0-1.0) k/uL Eosinophils # (0-0.7) k/uL Basophils # (0-0.2) k/uL Hypochromasia Anisocytosis PT (10.0-12.5) sec INR (<1.2) APTT (22.0-30.0) sec D-Dimer (<0.60) mg/L FEU Sodium (137-145) mmol/L Potassium (3.5-5.1) mmol/L Chloride (98-107) mmol/L Carbon Dioxide (22-30) mmol/L Anion Gap mmol/L BUN (9-20) mg/dL Creatinine (0.66-1.25) mg/dL Est GFR (CKD-EPI)AfAm (>60 ml/min/1.73 sqM) Est GFR (CKD-EPI)NonAf (>60 ml/min/1.73 sqM) Glucose (74-99) mg/dL POC Glucose (mg/dL) (70-110) mg/dL POC Glu Weight Loss Consultant ID Lactic Ac Sepsis Rflx Plasma Lactic Acid Jakub (0.7-2.0) mmol/L Calcium (8.4-10.2) mg/dL Total Bilirubin (0.2-1.3) mg/dL AST (17-59) U/L ALT (4-49) U/L Alkaline Phosphatase (38-126) U/L Troponin I (0.000-0.034) ng/mL Total Protein (6.3-8.2) g/dL Albumin (3.5-5.0) g/dL Procalcitonin (0.02-0.50) ng/mL Influenza Type A (PCR) Not Detected (Not Detectd) Influenza Type B (PCR) Not Detected (Not Detectd) RSV (PCR) Not Detected (Not Detectd) SARS-CoV-2 (PCR) Not Detected (Not Detectd) - EKG Data -: EKG Interpreted by Me EKG shows normal: sinus rhythm, axis (Normal), intervals (Normal) Rate: tachycardia (Rate 125 bpm) Disposition Clinical Impression: COPD exacerbation, Elevated troponin Disposition: ADMITTED IP TO THIS HOSP Condition: Fair Is patient prescribed a controlled substance at d/c from ED?: No
[2023-11-26] MEDS: ATORVASTATIN 20 MG TAB PO SCH (08:23)
[2023-11-26] MEDS: ASPIRIN 81 MG PO SCH (08:23)
[2023-11-26] MEDS: METOPROLOL TARTRATE 25 MG TAB PO SCH (08:23)
[2023-11-26] MEDS: IPRATROPIUM-ALBUTEROL 3 ML NEB INHALATION SCH (08:30)
[2023-11-26] MEDS: HEPARIN SOD,PORK IN 0.45% NACL 25,000 UNIT in 0.45% NACL 1 250ML.BAG IV SCH (08:33)
[2023-11-26] MEDS: HEPARIN SODIUM 1,000 UN/ML (10ML VL) IV ONE (08:34)
[2023-11-26] MEDS: SYMBICORT 160-4.5 MCG INHALER INHALATION SCH (08:39)
[2023-11-26] MEDS: NICOTINE 21MG/24HR PATCH TRANSDERM SCH (08:39)
[2023-11-26] MEDS ORDERED: THEOPHYLLINE 24 HOUR 400 MG CAP.ER.24H PO SCH (09:00)
[2023-11-26] MEDS ORDERED: DEXTROSE 50% SYRINGE 50 ML IVP PRN ×2 (11:15)
[2023-11-26] MEDS: methylPREDNISolone SOD SUCCI 125 MG/2 ML VIAL IV SCH (11:23)
[2023-11-26 12:26] LABS: Glucose,Whole Blood 285 mg/dL (70-110)
--- NOTE | 2023-11-26 12:32 | P.CNPUL ---
History of Present Illness Consult date: 11/26/23 Requesting physician: Beth Reed Reason for consult: dyspnea, COPD Chief complaint: Shortness of breath History of present illness: This is a 78-year-old white male with history of severe end-stage COPD, O2 dependent, prednisone dependent, patient is very similar to my service, patient has been a heavy smoker over the years, quit smoking supposedly about 15 days ago. Recently the patient has been cutting hay and grass, and he developed worsening shortness of breath over the last couple of days. Came in with to the ER with mostly symptoms of cough, wheezing, shortness of breath, no fever no chills no hemoptysis and no chest pain. Chest x-ray showed mostly basilar atelectasis, no clear-cut evidence of infiltrate, CT angiogram of the chest showed no evidence of pulmonary embolism severe emphysema is noted, there is no evidence of pneumonia or pulmonary edema there is however a trace of right-sided pleural effusion. WBC count is normal hemoglobin is 12.6 INR is 1.39 electrolytes are normal BUN is 17 creatinine 1.36 patient tested negative for influenza A, influenza B, RSV and COVID-19. Review of Systems EYES: Denies change in vision. EARS, NOSE, MOUTH, THROAT: Denies headaches, denies sore throat. CARDIOVASCULAR: Denies chest pain, palpitations or syncopal episodes. RESPIRATORY: Positive for shortness of breath, cough, congestion no hemoptysis. No chest pain. GASTROINTESTINAL: Denies change in appetite, denies abdominal pain GENITOURINARY: Denies hematuria, denies infections. MUSKULOSKELETAL: Denies pain, denies swelling. INTEGUMENTARY: Denies rash, denies eczema. NEUROLOGICAL: Denies recent memory loss, no recent seizure activity. PSYCHIATRIC: Denies anxiety, denies depression. HEMATOLOGIC/LYMPHATIC: Denies anemia, denies enlarged lymph nodes. Past Medical History Past Medical History: Chest Pain / Angina, COPD, Diabetes Mellitus, Hyperlipidemia, Myocardial Infarction ([place]), Osteoarthritis (OA), Pneumonia, Prostate Disorder, Supraventricular Tachycardia (SVT) Additional Past Medical History / Comment(s): Chronic hypoxic respiratory failure with home oxygen pt mostly just wears at night, past acute hypoxic respiratory failure requiring bipap, newly diagnosed NIDDM type II, BPH, UTI Last Myocardial Infarction Date:: 2008 History of Any Multi-Drug Resistant Organisms: None Reported Past Surgical History: Back Surgery, Heart Catheterization, Hernia Repair, Joint Replacement, Orthopedic Surgery Additional Past Surgical History / Comment(s): microlaryngoscopy w/ lt vocal cord bx-neg, bronch-lung bx-neg, lt inguinal hernia, low back surgery, bilateral total hip arthroplasties, bilateral cataracts removed. Past Anesthesia/Blood Transfusion Reactions: No Reported Reaction Past Psychological History: No Psychological Hx Reported Smoking Status: Current every day smoker - Past Family History Mother Family Medical History: COPD, Diabetes Mellitus Father Family Medical History: COPD, Diabetes Mellitus Brother(s) Family Medical History: Cancer Additional Family Medical History / Comment(s): leukemia Medications and Allergies Home Medications Medication Instructions Recorded Confirmed Type Aspirin 81 mg PO DAILY 07/17/16 11/26/23 History Atorvastatin [Lipitor] 20 mg PO DAILY 07/17/16 11/26/23 History Budesonide-Formot 160-4.5 Mcg 2 puff INHALATION RT-BID 07/17/16 11/26/23 History [Symbicort 160-4.5 Mcg Inhaler] Metoprolol Tartrate [Lopressor] 25 mg PO DAILY 07/23/18 11/26/23 History Albuterol Sulfate [Albuterol 2 puff PO RT-Q4H PRN 04/13/23 11/26/23 History Sulfate Hfa] predniSONE 10 mg PO DAILY 8 Days #20 tab 06/10/23 11/26/23 Rx Cetirizine HCl [Zyrtec] 10 mg PO DAILY 11/26/23 11/26/23 History Empagliflozin [Jardiance] 10 mg PO DAILY 11/26/23 11/26/23 History Famotidine [Pepcid] 20 mg PO BID 11/26/23 11/26/23 History Ipratropium-Albuterol Nebulize 3 ml INHALATION RT-Q4H 11/26/23 11/26/23 History [Duoneb 0.5 mg-3 mg/3 ml Soln] Montelukast [Singulair] 10 mg PO DAILY 11/26/23 11/26/23 History Multivit-Mins/Iron/Folic/Lycop 1 tab PO DAILY 11/26/23 11/26/23 History [Centrum Men's Tablet] Nicotine 21Mg/24Hr Patch [Habitrol] 1 patch TRANSDERM DAILY PRN 11/26/23 11/26/23 History Sulfamethox-Tmp 800-160Mg [Bactrim 1 tab PO Q12HR 11/26/23 11/26/23 History DS 800-160 mg] Tamsulosin [Flomax] 0.4 mg PO DAILY 11/26/23 11/26/23 History Zolpidem [Ambien] 5 mg PO HS PRN 11/26/23 11/26/23 History buPROPion HCL [buPROPion HCL SR] 100 mg PO DAILY 11/26/23 11/26/23 History metFORMIN HCL 500 mg PO BID 11/26/23 11/26/23 History tiZANidine [Zanaflex] 4 mg PO DAILY PRN 11/26/23 11/26/23 History Allergies Allergy/AdvReac Type Severity Reaction Status Date / Time Penicillins Allergy Rash/Hives Verified 11/26/23 09:43 Physical Exam Vitals: Vital Signs Temp Pulse Resp BP Pulse Ox FiO2 11/26/23 11:26 97.6 F 60 18 104/56 97 11/26/23 10:05 97.6 F 80 20 103/53 99 11/26/23 08:58 90 103/55 11/26/23 08:42 89 11/26/23 08:33 98 35 11/26/23 08:30 85 11/26/23 08:20 86 22 96/59 11/26/23 07:13 98.1 F 92 24 104/59 95 11/26/23 06:46 98.0 F 85 20 97/60 99 11/26/23 05:24 82 22 87/42 99 11/26/23 04:46 98.6 F 84 16 87/48 97 11/26/23 03:44 112 H 11/26/23 03:30 114 H 20 11/26/23 03:09 99.2 F 109 H 26 H 89/59 95 11/26/23 02:13 101.3 F H 116 H 22 113/67 96 11/25/23 23:46 100.3 F H 127 H 30 H 108/65 97 Intake and Output 11/25/23 11/26/23 11/26/23 22:59 06:59 14:59 Output Total 400 Balance -400 Output: Urine 400 Other: Weight 81.647 kg GENERAL EXAM: Alert, pleasant 77-year-old male, on Ventimask. HEAD: Normocephalic. EYES: Normal reaction of pupils, equal size. NOSE: Clear with pink turbinates. THROAT: No erythema or exudates. NECK: No masses, no JVD. CHEST: No chest wall deformity. LUNGS: Equal air entry with bilateral end expiratory wheeze, diminished. CVS: S1 and S2 normal with no audible murmur, regular rhythm. ABDOMEN: No hepatosplenomegaly, normal bowel sounds, no guarding or rigidity. SPINE: No scoliosis or deformity SKIN: No rashes CENTRAL NERVOUS SYSTEM: No focal deficits, tone is normal in all 4 extremities. EXTREMITIES: There is no peripheral edema. No clubbing, no cyanosis. Peripheral pulses are intact. Results - Laboratory Findings CBC and BMP: 11/26/23 00:12 11/26/23 00:12 PT/INR, D-dimer PT 10.5 sec (10.0-12.5) 11/26/23 00:12 INR 1.0 (<1.2) 11/26/23 00:12 D-Dimer 1.39 mg/L FEU (<0.60) H 11/26/23 00:12 Abnormal lab findings: Abnormal Labs 11/26/23 11/26/23 11/26/23 00:12 00:12 00:12 Hgb 12.6 L RDW 17.3 H Lymphocytes # 0.8 L D-Dimer Sodium 133 L Carbon Dioxide 19 L Creatinine 1.36 H Glucose 108 H POC Glucose (mg/dL) 114 H Plasma Lactic Acid Jakub Troponin I Total Protein 6.1 L 11/26/23 11/26/23 11/26/23 00:12 00:12 00:12 Hgb RDW Lymphocytes # D-Dimer 1.39 H Sodium Carbon Dioxide Creatinine Glucose POC Glucose (mg/dL) Plasma Lactic Acid Jakub 2.1 H* Troponin I 0.087 H* Total Protein 11/26/23 07:07 Hgb RDW Lymphocytes # D-Dimer Sodium Carbon Dioxide Creatinine Glucose POC Glucose (mg/dL) Plasma Lactic Acid Jakub Troponin I 0.097 H* Total Protein - Diagnostic Findings Chest x-ray: image reviewed CT scan - chest: image reviewed (As noted in HPI) Assessment and Plan Assessment: Impression: Acute exacerbation of COPD History of severe COPD, FEV1 is in the range of 46% of the predicted Chronic hypoxic respiratory failure [id number] smoking history continues to smoke until 2 weeks ago Dyslipidemia Generalized anxiety disorder Degenerative joint disease Previous history of SVT Recommendation: Patient was seen and examined in the ER All his medications were reviewed and will continue the same. Continue bronchodilators, antibiotics and steroids, check procalcitonin level, CT angiogram of the chest was reviewed, no evidence of infiltrate/pneumonia Will continue to follow. Continue DVT prophylaxis/heparin subcu Continue nicotine patch Time with Patient: Greater than 30
[2023-11-26] MEDS: INSULIN ASPART (NovoLOG) 100 UNIT/ML VIAL SQ SCH (12:45)
[2023-11-26 16:56] LABS: Glucose,Whole Blood 330 mg/dL (70-110)
[2023-11-26 17:48] LABS: Glucose,Whole Blood 304 mg/dL (70-110)
[2023-11-26 19:59] LABS: Glucose,Whole Blood 297 mg/dL (70-110)
[2023-11-26] MEDS ORDERED: tiZANidine 4 MG TAB PO PRN (21:00)
[2023-11-26] MEDS: FAMOTIDINE 20 MG TAB PO SCH (21:34)
[2023-11-27] MEDS: IPRATROPIUM-ALBUTEROL 3 ML NEB INHALATION SCH (00:10)
[2023-11-27 00:21] LABS: Appearance,Urine Clear (Clear); Bilirubin,Urine Negative (Negative); Blood,Urine Negative (Negative); Color,Urine Light Yellow; Glucose,Urine (UA) 4+ (Negative); Ketones,Urine Negative (Negative); Leukocyte Esterase,Urine Negative (Negative); Nitrite,Urine Negative (Negative); PH, Urine 5.5 (5.0-8.0); Protein,Urine Trace (Negative); Specific Gravity,Urine 1.031 (1.001-1.035); Urobilinogen,Urine <2.0 mg/dL (<2.0)
--- NOTE | 2023-11-27 02:02 | P.HPIM ---
History of Present Illness H&P Date: 11/26/23 Chief Complaint: Shortness of breath Patient is a 78-year-old male with a past medical history of COPD on home oxygen 2.5 L and prednisone dependent, hyperlipidemia, newly diagnosed diabetes type 2, history of [place], SVT, BPH and currently everyday smoker. Patient presents to ER with complaints of worsening shortness over the past couple of days. Patient states that his symptoms started few days ago and patient has been cutting behavior in the grass. Presents ER with complaints of shortness of breath wheezing and cough. Denies any fever or chills. No chest pain. No leg swelling. Chest x-ray showed similar subsegmental opacities with similar curvilinear components at the lung bases. No significant radiographic alteration from the prior examination. Differential consideration and remains bibasilar atelectasis or consolidation. Related stability suggest chronic underlying changes rather than infectious etiology. CTA chest was done which showed no evidence of PE. No thoracic aortic aneurysmal dilatation or dissection. Severe emphysematous changes. No evidence of acute airspace consolidation pulmonary edema or pneumothorax. Trace right pleural effusion. Patient was requiring 100% nonrebreather on admission. EKG showed ectopic atrial tachycardia. Laboratory data showed WBC 8.1 hemoglobin 12.6 and platelets 179 D-dimer 1.39 sodium 133 potassium 4.6 chloride 104 bicarb is 19 BUN 17 and creatinine 1.36 and blood sugar 108 lactic acid 2.1 troponin 0.087 and 0.097 Procalcitonin level is 0.22 and influenza A B RSV and COVID-19 PCR not detected. Review of Systems Constitutional: Patient denies any fever or chills . No generalized weakness or weight loss. Abdomen: Patient denied nausea vomiting and diarrhea and abdominal pain. Cardiovascular: Patient denies any chest pain or short of breath no palpitations. Respiratory: Patient does have cough without much sputum production. Shortness of breath. Neurologic: Patient denied any numbness or tingling. no headache. Musculoskeletal: Patient denies any complaints of joint swelling or deformity. Skin: Negative Psychiatric: Negative Endocrine: No heat or cold intolerance. No recent weight gain. Genitourinary: No dysuria or hematuria. All other 14 point ROS negative except the above Past Medical History Past Medical History: Chest Pain / Angina, COPD, Diabetes Mellitus, Hyperlipidemia, Myocardial Infarction ([place]), Osteoarthritis (OA), Pneumonia, Prostate Disorder, Supraventricular Tachycardia (SVT) Additional Past Medical History / Comment(s): Chronic hypoxic respiratory failure with home oxygen pt mostly just wears at night, past acute hypoxic respiratory failure requiring bipap, newly diagnosed NIDDM type II, BPH, UTI Last Myocardial Infarction Date:: 2008 History of Any Multi-Drug Resistant Organisms: None Reported Past Surgical History: Back Surgery, Heart Catheterization, Hernia Repair, Joint Replacement, Orthopedic Surgery Additional Past Surgical History / Comment(s): microlaryngoscopy w/ lt vocal cord bx-neg, bronch-lung bx-neg, lt inguinal hernia, low back surgery, bilateral total hip arthroplasties, bilateral cataracts removed. Past Anesthesia/Blood Transfusion Reactions: No Reported Reaction Past Psychological History: No Psychological Hx Reported Smoking Status: Current every day smoker - Past Family History Mother Family Medical History: COPD, Diabetes Mellitus Father Family Medical History: COPD, Diabetes Mellitus Brother(s) Family Medical History: Cancer Additional Family Medical History / Comment(s): leukemia Medications and Allergies Home Medications Medication Instructions Recorded Confirmed Type Aspirin 81 mg PO DAILY 07/17/16 11/26/23 History Atorvastatin [Lipitor] 20 mg PO DAILY 07/17/16 11/26/23 History Budesonide-Formot 160-4.5 Mcg 2 puff INHALATION RT-BID 07/17/16 11/26/23 History [Symbicort 160-4.5 Mcg Inhaler] Metoprolol Tartrate [Lopressor] 25 mg PO DAILY 07/23/18 11/26/23 History Albuterol Sulfate [Albuterol 2 puff PO RT-Q4H PRN 04/13/23 11/26/23 History Sulfate Hfa] predniSONE 10 mg PO DAILY 8 Days #20 tab 06/10/23 11/26/23 Rx Cetirizine HCl [Zyrtec] 10 mg PO DAILY 11/26/23 11/26/23 History Empagliflozin [Jardiance] 10 mg PO DAILY 11/26/23 11/26/23 History Famotidine [Pepcid] 20 mg PO BID 11/26/23 11/26/23 History Ipratropium-Albuterol Nebulize 3 ml INHALATION RT-Q4H 11/26/23 11/26/23 History [Duoneb 0.5 mg-3 mg/3 ml Soln] Montelukast [Singulair] 10 mg PO DAILY 11/26/23 11/26/23 History Multivit-Mins/Iron/Folic/Lycop 1 tab PO DAILY 11/26/23 11/26/23 History [Centrum Men's Tablet] Nicotine 21Mg/24Hr Patch [Habitrol] 1 patch TRANSDERM DAILY PRN 11/26/23 11/26/23 History Sulfamethox-Tmp 800-160Mg [Bactrim 1 tab PO Q12HR 11/26/23 11/26/23 History DS 800-160 mg] Tamsulosin [Flomax] 0.4 mg PO DAILY 11/26/23 11/26/23 History Zolpidem [Ambien] 5 mg PO HS PRN 11/26/23 11/26/23 History buPROPion HCL [buPROPion HCL SR] 100 mg PO DAILY 11/26/23 11/26/23 History metFORMIN HCL 500 mg PO BID 11/26/23 11/26/23 History tiZANidine [Zanaflex] 4 mg PO DAILY PRN 11/26/23 11/26/23 History Allergies Allergy/AdvReac Type Severity Reaction Status Date / Time Penicillins Allergy Rash/Hives Verified 11/26/23 09:43 Physical Exam Vitals: Vital Signs Temp Pulse Resp BP Pulse Ox FiO2 11/26/23 10:05 97.6 F 80 20 103/53 99 11/26/23 08:58 90 103/55 11/26/23 08:42 89 11/26/23 08:33 98 35 11/26/23 08:30 85 11/26/23 08:20 86 22 96/59 11/26/23 07:13 98.1 F 92 24 104/59 95 11/26/23 06:46 98.0 F 85 20 97/60 99 11/26/23 05:24 82 22 87/42 99 11/26/23 04:46 98.6 F 84 16 87/48 97 11/26/23 03:44 112 H 11/26/23 03:30 114 H 20 11/26/23 03:09 99.2 F 109 H 26 H 89/59 95 11/26/23 02:13 101.3 F H 116 H 22 113/67 96 11/25/23 23:46 100.3 F H 127 H 30 H 108/65 97 Intake and Output 11/25/23 11/26/23 11/26/23 22:59 06:59 14:59 Output Total 400 Balance -400 Output: Urine 400 Other: Weight 81.647 kg PHYSICAL EXAMINATION: Patient is lying in the bed comfortably, mild acute distress, awake alert and oriented.. HEENT: Normocephalic. Neck is supple. Pupils reactive. Nostrils clear. Oral cavity is moist. Neck reveals no JVD, carotid bruits, or thyromegaly. CHEST EXAMINATION: Trachea is central. Symmetrical expansion. Bilateral coarse breath sounds and diminished sounds and wheezing CARDIAC: Normal S1, S2 with no gallops. Systolic murmur. ABDOMEN: Soft. Bowel sounds normal. No organomegaly. No abdominal bruits. Extremities: reveal no edema. No clubbing or cyanosis Neurologically awake, alert, oriented x3 with well-coordinated movements. No focal deficits noted Skin: No rash or skin lesions. Psychiatric: Coperative. Nonsuicidal Musculoskeletal: No joint swelling or deformity. Normal range of motion. Results CBC & Chem 7: 11/28/23 07:52 11/28/23 07:52 Labs: Abnormal Lab Results - Last 24 Hours (Table) 11/26/23 11/26/23 11/26/23 Range/Units 00:12 00:12 00:12 Hgb 12.6 L (13.0-17.5) gm/dL RDW 17.3 H (11.5-15.5) % Lymphocytes # 0.8 L (1.0-4.8) k/uL D-Dimer (<0.60) mg/L FEU Sodium 133 L (137-145) mmol/L Carbon Dioxide 19 L (22-30) mmol/L Creatinine 1.36 H (0.66-1.25) mg/dL Glucose 108 H (74-99) mg/dL POC Glucose (mg/dL) 114 H (70-110) mg/dL Plasma Lactic Acid Jakub (0.7-2.0) mmol/L Troponin I (0.000-0.034) ng/mL Total Protein 6.1 L (6.3-8.2) g/dL 11/26/23 11/26/23 11/26/23 Range/Units 00:12 00:12 00:12 Hgb (13.0-17.5) gm/dL RDW (11.5-15.5) % Lymphocytes # (1.0-4.8) k/uL D-Dimer 1.39 H (<0.60) mg/L FEU Sodium (137-145) mmol/L Carbon Dioxide (22-30) mmol/L Creatinine (0.66-1.25) mg/dL Glucose (74-99) mg/dL POC Glucose (mg/dL) (70-110) mg/dL Plasma Lactic Acid Jakub 2.1 H* (0.7-2.0) mmol/L Troponin I 0.087 H* (0.000-0.034) ng/mL Total Protein (6.3-8.2) g/dL 11/26/23 Range/Units 07:07 Hgb (13.0-17.5) gm/dL RDW (11.5-15.5) % Lymphocytes # (1.0-4.8) k/uL D-Dimer (<0.60) mg/L FEU Sodium (137-145) mmol/L Carbon Dioxide (22-30) mmol/L Creatinine (0.66-1.25) mg/dL Glucose (74-99) mg/dL POC Glucose (mg/dL) (70-110) mg/dL Plasma Lactic Acid Jakub (0.7-2.0) mmol/L Troponin I 0.097 H* (0.000-0.034) ng/mL Total Protein (6.3-8.2) g/dL Thrombosis Risk Factor Assmnt - DVT/VTE Prophylaxis DVT/VTE Prophylaxis: Pharmacologic Prophylaxis ordered Assessment and Plan Assessment: Acute on chronic hypoxemic respiratory failure secondary to acute COPD exacerbation. Patient was requiring 100% nonrebreather on admission Mild elevated troponin level Lactic acidosis Acute COPD exacerbation on home oxygen via nasal cannula Severe COPD with FEV1 of 46% of predicted. Currently ongoing smoking with pack 50 pack years of smoking. Generalized anxiety Hypertension Hyperlipidemia New diagnosis diabetes type 2 [id number] Previous history of SVT DVT prophylaxis patient is on heparin drip currently Plan: Patient will be continued on telemonitoring. Continue with IV Solu-Medrol, D uoNebs and Symbicort. Continue with azithromycin. Patient was started on heparin drip due to elevated troponin level. Continue with oxygen limitation and titrate down to his home level of 2 to 3 L. Cardiology and pulmonary was consulted. Continue to follow closely. Time with Patient: Greater than 30
[2023-11-27 02:28] LABS: Glucose,Whole Blood 276 mg/dL (70-110)
[2023-11-27] MEDS: INSULIN DETEMIR (LEVEMIR) 100 UNIT/ML SYR SQ SCH ×2 (02:41→20:39)
[2023-11-27 05:59] LABS: Glucose,Whole Blood 309 mg/dL (70-110)
[2023-11-27 08:22] LABS: Anisocytosis Slight; Basophils % (A) 0 %; Eosinophils % (A) 0 %; HCT 35.8 % (39.0-53.0); HGB 11.1 gm/dL (13.0-17.5); Hypochromasia Slight; Lymphocytes # (A) 0.4 k/uL (1.0-4.8); Lymphocytes % (A) 4 %; MCH 27.4 pg (25.0-35.0); MCV 88.4 fL (80.0-100.0); Mean Platelet Volume 8.8; Monocytes # (A) 0.2 k/uL (0-1.0); Monocytes % (A) 2 %; Neutrophils # (A) 10.3 k/uL (1.3-7.7); Neutrophils % (A) 94 %; Platelet Count 213 k/uL (150-450); RBC 4.05 m/uL (4.30-5.90); RDW 17.5 % (11.5-15.5)
[2023-11-27 08:32] LABS: INR 0.9 (<1.2); Partial Thromboplastin Time 38.2 sec (22.0-30.0); Prothrombin Time 10.3 sec (10.0-12.5)
[2023-11-27 08:37] LABS: African American GFR (CKD) 76 (>60 ml/min/1.73 sqM); Anion Gap 8 mmol/L; Blood Urea Nitrogen 20 mg/dL (9-20); Carbon Dioxide 19 mmol/L (22-30); Chloride 110 mmol/L (98-107); Glucose 234 mg/dL (74-99); Non-African American GFR(CKD) 66 (>60 ml/min/1.73 sqM); Potassium 4.2 mmol/L (3.5-5.1); Sodium 137 mmol/L (137-145)
[2023-11-27 08:41] LABS: NT-Pro-B-Type Natriuretic Pept 871 pg/mL
[2023-11-27] MEDS: TAMSULOSIN 0.4 MG CAP.ER.24H PO SCH (08:54)
[2023-11-27] MEDS: LORATADINE 10 MG TAB PO SCH (08:54)
[2023-11-27] MEDS: buPROPion SR 100 MG TABLET.ER PO SCH (08:54)
[2023-11-27] MEDS: DAPAGLIFLOZIN PROPANEDIOL 5 MG TABLET PO SCH (08:54)
[2023-11-27] MEDS: MULTIVITAMINS, THERA 1 EACH TAB PO SCH (08:54)
[2023-11-27] MEDS: AZITHROMYCIN 500 MG TAB PO SCH (08:54)
[2023-11-27] MEDS: MONTELUKAST 10 MG TAB PO SCH (08:54)
[2023-11-27] MEDS: HEPARIN SODIUM 1,000 UN/ML (10ML VL) IVP ONE (10:38)
[2023-11-27 11:24] LABS: Glucose,Whole Blood 190 mg/dL (70-110)
--- NOTE | 2023-11-27 15:12 | P.PN ---
Subjective Progress Note Date: 11/27/23 Principal diagnosis: Acute exacerbation of COPD This is a 78-year-old white male with history of severe end-stage COPD, O2 dependent, prednisone dependent, patient is very similar to my service, patient has been a heavy smoker over the years, quit smoking supposedly about 15 days ago. Recently the patient has been cutting hay and grass, and he developed worsening shortness of breath over the last couple of days. Came in with to the ER with mostly symptoms of cough, wheezing, shortness of breath, no fever no chills no hemoptysis and no chest pain. Chest x-ray showed mostly basilar atelectasis, no clear-cut evidence of infiltrate, CT angiogram of the chest showed no evidence of pulmonary embolism severe emphysema is noted, there is no evidence of pneumonia or pulmonary edema there is however a trace of right-sided pleural effusion. WBC count is normal hemoglobin is 12.6 INR is 1.39 electrolytes are normal BUN is 17 creatinine 1.36 patient tested negative for influenza A, influenza B, RSV and COVID-19. Patient was evaluated today on 11/27/2023, patient is doing well, feels better today compared to yesterday less cough less wheezing less shortness of breath labs including CBC and basic metabolic profile are relatively normal. Chest x- ray and CT angiogram of the chest showed no evidence of acute pulmonary process Objective - Vital Signs Vital signs: Vital Signs Temp 98.0 F 11/27/23 12:00 Pulse 80 11/27/23 12:23 Resp 18 11/27/23 12:00 BP 117/54 11/27/23 12:00 Pulse Ox 97 11/27/23 12:00 FiO2 35 11/26/23 08:33 Intake & Output 11/26/23 11/27/23 11/27/23 18:59 06:59 18:59 Intake Total 82.793 635.788 Output Total 1000 Balance 82.793 -1000 635.788 Weight 81.647 kg 77.7 kg Intake: Intake, IV Titration 82.793 155.788 Amount Heparin Sod,Pork in 0.45% 82.793 155.788 NaCl 25,000 unit In 0.45 % NaCl 1 250ml.bag @ 12 UNITS/KG/HR 9.798 mls/hr IV .Q24H [facility] Rx#: [id number] Oral 480 Output: Urine 1000 Other: Voiding Method Urinal Toilet Urinal # Voids 1 1 - Exam GENERAL EXAM: Alert, pleasant 77-year-old male, on 3 L nasal cannula HEAD: Normocephalic. EYES: Normal reaction of pupils, equal size. NOSE: Clear with pink turbinates. THROAT: No erythema or exudates. NECK: No masses, no JVD. CHEST: No chest wall deformity. LUNGS: Diminished breath sound bilaterally no rhonchi no wheezes CVS: S1 and S2 normal with no audible murmur, regular rhythm. ABDOMEN: No hepatosplenomegaly, normal bowel sounds, no guarding or rigidity. SKIN: No rashes CENTRAL NERVOUS SYSTEM: Alert oriented x 3 no focal deficits, tone is normal in all 4 extremities. EXTREMITIES: Clubbing edema or cyanosis - Labs CBC & Chem 7: 11/27/23 07:56 11/27/23 07:56 Labs: Abnormal Lab Results - Last 24 Hours (Table) 11/26/23 11/26/23 11/26/23 Range/Units 15:41 16:55 17:46 WBC (3.8-10.6) k/uL RBC (4.30-5.90) m/uL Hgb (13.0-17.5) gm/dL Hct (39.0-53.0) % RDW (11.5-15.5) % Neutrophils # (1.3-7.7) k/uL Lymphocytes # (1.0-4.8) k/uL APTT 47.1 H (22.0-30.0) sec Chloride (98-107) mmol/L Carbon Dioxide (22-30) mmol/L Glucose (74-99) mg/dL POC Glucose (mg/dL) 330 H 304 H (70-110) mg/dL Hemoglobin A1c (<=6.0) % Urine Protein (Negative) Urine Glucose (UA) (Negative) 11/26/23 11/26/23 11/27/23 Range/Units 19:57 23:51 02:27 WBC (3.8-10.6) k/uL RBC (4.30-5.90) m/uL Hgb (13.0-17.5) gm/dL Hct (39.0-53.0) % RDW (11.5-15.5) % Neutrophils # (1.3-7.7) k/uL Lymphocytes # (1.0-4.8) k/uL APTT (22.0-30.0) sec Chloride (98-107) mmol/L Carbon Dioxide (22-30) mmol/L Glucose (74-99) mg/dL POC Glucose (mg/dL) 297 H 276 H (70-110) mg/dL Hemoglobin A1c (<=6.0) % Urine Protein Trace H (Negative) Urine Glucose (UA) 4+ H (Negative) 11/27/23 11/27/23 11/27/23 Range/Units 05:58 07:56 07:56 WBC 11.0 H (3.8-10.6) k/uL RBC 4.05 L (4.30-5.90) m/uL Hgb 11.1 L (13.0-17.5) gm/dL Hct 35.8 L (39.0-53.0) % RDW 17.5 H (11.5-15.5) % Neutrophils # 10.3 H (1.3-7.7) k/uL Lymphocytes # 0.4 L (1.0-4.8) k/uL APTT (22.0-30.0) sec Chloride (98-107) mmol/L Carbon Dioxide (22-30) mmol/L Glucose (74-99) mg/dL POC Glucose (mg/dL) 309 H (70-110) mg/dL Hemoglobin A1c 8.3 H (<=6.0) % Urine Protein (Negative) Urine Glucose (UA) (Negative) 11/27/23 11/27/23 11/27/23 Range/Units 07:56 07:56 11:17 WBC (3.8-10.6) k/uL RBC (4.30-5.90) m/uL Hgb (13.0-17.5) gm/dL Hct (39.0-53.0) % RDW (11.5-15.5) % Neutrophils # (1.3-7.7) k/uL Lymphocytes # (1.0-4.8) k/uL APTT 38.2 H (22.0-30.0) sec Chloride 110 H (98-107) mmol/L Carbon Dioxide 19 L (22-30) mmol/L Glucose 234 H (74-99) mg/dL POC Glucose (mg/dL) 190 H (70-110) mg/dL Hemoglobin A1c (<=6.0) % Urine Protein (Negative) Urine Glucose (UA) (Negative) Microbiology - Last 24 Hours (Table) 11/26/23 02:50 Blood Culture Gram Stain - Preliminary Blood Blood Culture - Preliminary Molecular ID Assessment and Plan Assessment: Impression: Acute exacerbation of COPD History of severe COPD, FEV1 is in the range of 46% of the predicted Chronic hypoxic respiratory failure [id number]-dloc smoking history continues to smoke until 2 weeks ago Dyslipidemia Generalized anxiety disorder Degenerative joint disease Previous history of SVT Recommendation: Continue bronchodilators, antibiotics and steroids Will likely recommend discharge planning in the next 24 hours Will continue to follow. Continue DVT prophylaxis/heparin subcu Continue nicotine patch Time with Patient: Less than 30
[2023-11-27 16:42] LABS: Glucose,Whole Blood 330 mg/dL (70-110)
[2023-11-27 20:17] LABS: Glucose,Whole Blood 271 mg/dL (70-110)
[2023-11-27] MEDS: ZOLPIDEM 5 MG TAB PO PRN (20:39)
--- NOTE | 2023-11-27 23:18 | P.CRDCN ---
History of Present Illness Consult date: 11/27/23 History of present illness: HISTORY OF PRESENTING ILLNESS 78-year-old male with PMH of COPD on 2.5 L of oxygen, chronic steroid dependency, hypertension, hyperlipidemia, type 2 diabetes, prior history of [place], SVT, active smoker presents to the ER with worsening shortness of breath over last couple of days. He denies any substernal chest pressure, lightheadedness dizziness palpitation symptoms. His ECG showed ectopic atrial tachycardia with nonspecific ST changes Labs shows mildly elevated troponin of 0.087, 0.09, creatinine of 1.36 Pro-Dwight level of 0.2, CTA chest not show any evidence of PE or aortic aneurysms, did show severe emphysema REVIEW OF SYSTEMS 14 point review of system is negative except what is mentioned above in HPI. PHYSICAL EXAMINATION Head: Normocephalic. Eyes: Sclerae nonicteric. Neck: Brisk carotid upstroke, no jugular venous distention. Lungs: Diminished breath sounds in bilateral bases with diffuse wheezing. Heart: Regular rate and rhythm, S1-S2 audible, mild systolic murmur audible Abdomen: Soft nontender, positive bowel sounds. Extremities: 1+ pitting edema bilateral lower extremity Neuro: Alert, oritented, no focal deficits. Detailed neuro exam was not performed. ASSESSMENT Mildly elevated troponin, likely type II NSTEMI from demand supply mismatch Acute on chronic hypoxic respiratory failure due to COPD exacerbation Severe COPD with FEV1 of 46% predicted AUGUSTINE Hypertension Dyslipidemia Type 2 diabetes Previous history of SVT PLAN Continue aspirin, Lipitor Start metoprolol 25 mg. Obtain echocardiogram Continue IV heparin esperanza Hernandez MD, FACC, RPVI Thank you for allowing [facility] to participate in this patient's care. Feel free to reach out in case of any followup questions. Past Medical History Past Medical History: Chest Pain / Angina, COPD, Diabetes Mellitus, Hyperlipidemia, Myocardial Infarction ([place]), Osteoarthritis (OA), Pneumonia, Prostate Disorder, Supraventricular Tachycardia (SVT) Additional Past Medical History / Comment(s): Chronic hypoxic respiratory failure with home oxygen pt mostly just wears at night, past acute hypoxic respiratory failure requiring bipap, newly diagnosed NIDDM type II, BPH, UTI Last Myocardial Infarction Date:: 2008 History of Any Multi-Drug Resistant Organisms: None Reported Past Surgical History: Back Surgery, Heart Catheterization, Hernia Repair, Joint Replacement, Orthopedic Surgery Additional Past Surgical History / Comment(s): microlaryngoscopy w/ lt vocal cord bx-neg, bronch-lung bx-neg, lt inguinal hernia, low back surgery, bilateral total hip arthroplasties, bilateral cataracts removed. Past Anesthesia/Blood Transfusion Reactions: No Reported Reaction Past Psychological History: No Psychological Hx Reported Smoking Status: Current every day smoker - Past Family History Mother Family Medical History: COPD, Diabetes Mellitus Father Family Medical History: COPD, Diabetes Mellitus Brother(s) Family Medical History: Cancer Additional Family Medical History / Comment(s): leukemia Medications and Allergies Home Medications Medication Instructions Recorded Confirmed Type Aspirin 81 mg PO DAILY 07/17/16 11/26/23 History Atorvastatin [Lipitor] 20 mg PO DAILY 07/17/16 11/26/23 History Budesonide-Formot 160-4.5 Mcg 2 puff INHALATION RT-BID 07/17/16 11/26/23 History [Symbicort 160-4.5 Mcg Inhaler] Metoprolol Tartrate [Lopressor] 25 mg PO DAILY 07/23/18 11/26/23 History Albuterol Sulfate [Albuterol 2 puff PO RT-Q4H PRN 04/13/23 11/26/23 History Sulfate Hfa] predniSONE 10 mg PO DAILY 8 Days #20 tab 06/10/23 11/26/23 Rx Cetirizine HCl [Zyrtec] 10 mg PO DAILY 11/26/23 11/26/23 History Empagliflozin [Jardiance] 10 mg PO DAILY 11/26/23 11/26/23 History Famotidine [Pepcid] 20 mg PO BID 11/26/23 11/26/23 History Ipratropium-Albuterol Nebulize 3 ml INHALATION RT-Q4H 11/26/23 11/26/23 History [Duoneb 0.5 mg-3 mg/3 ml Soln] Montelukast [Singulair] 10 mg PO DAILY 11/26/23 11/26/23 History Multivit-Mins/Iron/Folic/Lycop 1 tab PO DAILY 11/26/23 11/26/23 History [Centrum Men's Tablet] Nicotine 21Mg/24Hr Patch [Habitrol] 1 patch TRANSDERM DAILY PRN 11/26/23 11/26/23 History Sulfamethox-Tmp 800-160Mg [Bactrim 1 tab PO Q12HR 11/26/23 11/26/23 History DS 800-160 mg] Tamsulosin [Flomax] 0.4 mg PO DAILY 11/26/23 11/26/23 History Zolpidem [Ambien] 5 mg PO HS PRN 11/26/23 11/26/23 History buPROPion HCL [buPROPion HCL SR] 100 mg PO DAILY 11/26/23 11/26/23 History metFORMIN HCL 500 mg PO BID 11/26/23 11/26/23 History tiZANidine [Zanaflex] 4 mg PO DAILY PRN 11/26/23 11/26/23 History Allergies Allergy/AdvReac Type Severity Reaction Status Date / Time Penicillins Allergy Rash/Hives Verified 11/26/23 09:43 Physical Exam Vitals: Vital Signs Temp Pulse Pulse Resp BP BP Pulse Ox 11/27/23 20:20 84 11/27/23 20:07 80 11/27/23 20:00 97.5 F L 100 18 121/75 95 11/27/23 16:00 90 18 133/65 95 11/27/23 15:54 84 11/27/23 15:43 83 11/27/23 14:00 82 18 11/27/23 12:23 80 11/27/23 12:11 85 11/27/23 12:00 98.0 F 82 18 117/54 97 11/27/23 09:27 87 11/27/23 09:21 95 11/27/23 09:18 84 11/27/23 08:00 97.9 F 90 18 125/61 98 11/27/23 04:01 76 11/27/23 03:51 74 11/27/23 03:23 97.6 F 79 18 107/54 94 L 11/27/23 00:19 80 11/27/23 00:11 80 11/27/23 00:00 97.8 F 85 18 113/58 96 Intake and Output 11/27/23 11/27/23 11/28/23 14:59 22:59 06:59 Intake Total 635.788 480 Balance 635.788 480 Intake: Intake, IV Titration 155.788 Amount Heparin Sod,Pork in 0.45% 155.788 NaCl 25,000 unit In 0.45 % NaCl 1 250ml.bag @ 12 UNITS/KG/HR 9.798 mls/hr IV .Q24H [facility] Rx#: [id number] Oral 480 480 Other: Voiding Method Toilet Toilet Urinal Urinal # Voids 1 Results 11/27/23 07:56 11/27/23 07:56 Coagulation 11/27/23 11/27/23 Range/Units 07:56 14:52 PT 10.3 (10.0-12.5) sec APTT 38.2 H 52.1 H (22.0-30.0) sec CBC 11/27/23 Range/Units 07:56 WBC 11.0 H (3.8-10.6) k/uL RBC 4.05 L (4.30-5.90) m/uL Hgb 11.1 L (13.0-17.5) gm/dL Hct 35.8 L (39.0-53.0) % Plt Count 213 (150-450) k/uL Comprehensive Metabolic Panel 11/27/23 Range/Units 07:56 Sodium 137 (137-145) mmol/L Potassium 4.2 (3.5-5.1) mmol/L Chloride 110 H (98-107) mmol/L Carbon Dioxide 19 L (22-30) mmol/L BUN 20 (9-20) mg/dL Creatinine 1.08 (0.66-1.25) mg/dL Glucose 234 H (74-99) mg/dL Calcium 9.0 (8.4-10.2) mg/dL Current Medications Generic Name Dose Route Start Last Admin Trade Name Freq PRN Reason Stop Dose Admin Acetaminophen 650 mg 11/26/23 06:33 Acetaminophen Tab 325 Mg Tab PO Q4HR PRN Mild Pain or Fever > 100.5 Albuterol/Ipratropium 3 ml 11/26/23 06:33 Ipratropium-Albuterol 3 Ml Neb INHALATION RT-Q2H PRN Shortness Of Breath Or Wheezing Albuterol/Ipratropium 3 ml 11/27/23 00:00 11/27/23 20:07 Ipratropium-Albuterol 3 Ml Neb INHALATION 3 ml RT-Q4H [facility] Administration Aspirin 81 mg 11/26/23 09:00 11/27/23 08:54 Aspirin 81 Mg PO 81 mg DAILY [facility] Administration Atorvastatin Calcium 20 mg 11/26/23 09:00 11/27/23 08:54 Atorvastatin 20 Mg Tab PO 20 mg DAILY [facility] Administration Azithromycin 500 mg 11/27/23 09:00 11/27/23 08:54 Azithromycin 500 Mg Tab PO 11/29/23 09:01 500 mg DAILY [facility] Administration Protocol Budesonide/Formoterol Fumarate 2 puff 11/26/23 08:00 11/27/23 20:07 Symbicort 160-4.5 Mcg Inhaler INHALATION 2 puff RT-BID [facility] Administration Bupropion HCl 100 mg 11/27/23 09:00 11/27/23 08:54 Bupropion Sr 100 Mg Tablet.Er PO 100 mg DAILY [facility] Administration Dapagliflozin 5 mg 11/27/23 09:00 11/27/23 08:54 Dapagliflozin Propanediol 5 Mg Tablet PO 5 mg DAILY [facility] Administration Dextrose/Water 25 ml 11/26/23 11:15 Dextrose 50% Syringe 50 Ml IVP PER PROTOCOL PRN Hypoglycemia Protocol Dextrose/Water 50 ml 11/26/23 11:15 Dextrose 50% Syringe 50 Ml IVP PER PROTOCOL PRN Hypoglycemia Protocol Famotidine 20 mg 11/26/23 21:00 11/27/23 20:39 Famotidine 20 Mg Tab PO 20 mg BID [facility] Administration Heparin Sodium (Porcine) 0 unit 11/26/23 07:49 Heparin Sodium 1,000 Un/Ml (10ml Vl) IV PER PROTOCOL PRN Low PTT Protocol Heparin Sodium/Sodium Chloride 250 mls @ 9.798 mls/hr 11/26/23 08:00 11/27/23 08:54 25,000 unit/ Sodium Chloride IV 14 units/kg/hr .Q24H [facility] 11.431 mls/hr Administration Protocol 12 UNITS/KG/HR Insulin Aspart 0 unit 11/26/23 12:30 11/27/23 20:39 Insulin Aspart (Novolog) 100 Unit/Ml Vial SQ 12 unit ACHS [facility] Administration Protocol Insulin Detemir 15 unit 11/27/23 21:00 11/27/23 20:39 Insulin Detemir (Levemir) 100 Unit/Ml Syr SQ 15 unit HS [facility] Administration Loratadine 10 mg 11/27/23 09:00 11/27/23 08:54 Loratadine 10 Mg Tab PO 10 mg DAILY [facility] Administration Methylprednisolone Sodium Succinate 60 mg 11/26/23 12:00 11/27/23 17:48 Methylprednisolone Sod Succi 125 Mg/2 Ml Vial IV 60 mg Q6HR [facility] Administration Metoprolol Tartrate 25 mg 11/28/23 09:00 Metoprolol Tartrate 25 Mg Tab PO BID [facility] Montelukast Sodium 10 mg 11/27/23 09:00 11/27/23 08:54 Montelukast 10 Mg Tab PO 10 mg DAILY [facility] Administration Multivitamins 1 each 11/27/23 09:00 11/27/23 08:54 Multivitamins, Thera 1 Each Tab PO 1 each DAILY [facility] Administration Naloxone HCl 0.2 mg 11/26/23 06:33 Naloxone 0.4 Mg/Ml 1 Ml Vial IVP Q2M PRN Opioid Reversal Nicotine 1 patch 11/26/23 09:00 11/27/23 08:53 Nicotine 21mg/24hr Patch TRANSDERM 1 patch DAILY [facility] Administration Tamsulosin HCl 0.4 mg 11/27/23 09:00 11/27/23 08:54 Tamsulosin 0.4 Mg Cap.Er.24h PO 0.4 mg DAILY [facility] Administration Tizanidine HCl 4 mg 11/26/23 21:00 Tizanidine 4 Mg Tab PO DAILY PRN Muscle Pain Zolpidem Tartrate 10 mg 11/26/23 06:35 11/27/23 20:39 Zolpidem 5 Mg Tab PO 10 mg HS PRN Administration Insomnia Intake and Output 11/27/23 11/27/23 11/28/23 14:59 22:59 06:59 Intake Total 635.788 480 Balance 635.788 480 Intake: Intake, IV Titration 155.788 Amount Heparin Sod,Pork in 0.45% 155.788 NaCl 25,000 unit In 0.45 % NaCl 1 250ml.bag @ 12 UNITS/KG/HR 9.798 mls/hr IV .Q24H [facility] Rx#: [id number] Oral 480 480 Other: Voiding Method Toilet Toilet Urinal Urinal # Voids 1 11/27/23 07:56 11/27/23 07:56
[2023-11-28 06:08] LABS: Glucose,Whole Blood 230 mg/dL (70-110)
[2023-11-28 08:31] LABS: Anisocytosis Slight; Basophils % (A) 0 %; Eosinophils % (A) 0 %; HCT 32.8 % (39.0-53.0); HGB 10.2 gm/dL (13.0-17.5); Hypochromasia Moderate; Lymphocytes # (A) 0.7 k/uL (1.0-4.8); Lymphocytes % (A) 6 %; MCH 27.6 pg (25.0-35.0); MCHC 31.3 g/dL (31.0-37.0); MCV 88.3 fL (80.0-100.0); Mean Platelet Volume 8.5; Monocytes # (A) 0.4 k/uL (0-1.0); Monocytes % (A) 4 %; Neutrophils % (A) 90 %; Platelet Count 204 k/uL (150-450); RBC 3.71 m/uL (4.30-5.90); RDW 17.4 % (11.5-15.5); WBC 11.2 k/uL (3.8-10.6)
[2023-11-28] MEDS: METOPROLOL TARTRATE 25 MG TAB PO SCH (08:59)
[2023-11-28 10:35] LABS: African American GFR (CKD) 83 (>60 ml/min/1.73 sqM); Anion Gap 8 mmol/L; Blood Urea Nitrogen 24 mg/dL (9-20); Calcium 9.3 mg/dL (8.4-10.2); Carbon Dioxide 18 mmol/L (22-30); Chloride 111 mmol/L (98-107); Glucose 175 mg/dL (74-99); Non-African American GFR(CKD) 72 (>60 ml/min/1.73 sqM); Potassium 4.2 mmol/L (3.5-5.1); Sodium 137 mmol/L (137-145)
[2023-11-28 11:29] LABS: Glucose,Whole Blood 263 mg/dL (70-110)
--- NOTE | 2023-11-28 13:14 | CA ---
Transthoracic Echo Report Name: Ludwin Golden Age: 78 Gender: M : 1945 Exam Date: 11/28/2023 08:06 Exam Location: [place] [facility] Ht (in): 68 Wt (lb): 171 Ordering Physician: Skyler Hernandez MD ([email or web address]) Attending/Referring Phys: Waste Picker Apurva Bo RDCS Procedure CPT: Indications: NSTEMI and Pulmo HTN Cardiac Hx: Technical Quality: Fair Contrast 1: Total Dose (mL): Contrast 2: Total Dose (mL): MEASUREMENTS (Male / Female) Normal Values 2D ECHO LV Diastolic Diameter PLAX 4.8 cm 4.2 - 5.9 / 3.9 - 5.3 cm LV Systolic Diameter PLAX 3.1 cm IVS Diastolic Thickness 1.0 cm 0.6 - 1.0 / 0.6 - 0.9 cm LVPW Diastolic Thickness 1.2 cm 0.6 - 1.0 / 0.6 - 0.9 cm LV Relative Wall Thickness 0.5 LVOT Diameter 2.1 cm LV Diastolic Volume MOD BP 117.5 cm??? 67 - 155 / 56 - 104 cm??? LV Systolic Volume MOD BP 39.8 cm??? 22 - 58 / 19 - 49 cm??? LV Ejection Fraction MOD BP 66.1 % >= 55 % LV Cardiac Index MOD BP 3318.9 cm???/min???m??? LV Diastolic Volume MOD 4C 117.8 cm??? LV Systolic Volume MOD 4C 38.7 cm??? LV Ejection Fraction MOD 4C 67.2 % LV Cardiac Index MOD 4C 3381.9 cm???/min???m??? LV Diastolic Length 4C 9.1 cm LV Systolic Length 4C 7.6 cm LV Diastolic Volume MOD 2C 117.0 cm??? LV Systolic Volume MOD 2C 39.4 cm??? LV Ejection Fraction MOD 2C 66.3 % LV Cardiac Index MOD 2C 3317.2 cm???/min???m??? LV Diastolic Length 2C 9.1 cm LV Systolic Length 2C 7.9 cm LA Volume 72.0 cm??? 18 - 58 / 22 - 52 cm??? LA Volume Index 37.1 cm???/m??? 16 - 28 cm???/m??? DOPPLER AV Peak Velocity 383.7 cm/s AV Peak Gradient 58.9 mmHg AV Mean Velocity 271.4 cm/s AV Mean Gradient 33.1 mmHg AV Velocity Time Integral 85.1 cm LVOT Peak Velocity 120.3 cm/s LVOT Peak Gradient 5.8 mmHg LVOT Velocity Time Integral 26.0 cm LVOT Stroke Volume 88.5 cm??? LVOT Stroke Volume Index 46.3 ml/m??? LVOT Cardiac Index 3784.7 cm???/min???m??? AV Area Cont Eq vti 1.0 cm??? AV Area Cont Eq pk 1.1 cm??? MV Area PHT 5.0 cm??? Mitral E Point Velocity 77.5 cm/s Mitral A Point Velocity 86.6 cm/s Mitral E to A Ratio 0.9 MV Deceleration Time 151.8 ms FINDINGS Left Ventricle Left ventricular ejection fraction is estimated at 60-65 %. Left ventricular cavity size normal. Left ventricular wall thickness normal. No obvious regional wall motion abnormalities. Right Ventricle Normal right ventricular size and function. Unable to estimate the right ventricular systolic pressure. Right Atrium Normal right atrial size. Left Atrium Moderately increased left atrial volume. Mildly increased left atrial area. Mitral Valve Structurally normal mitral valve. No mitral stenosis, regurgitation or prolapse. Aortic Valve Aortic valve not well visualized. Moderate to severe aortic stenosis. Mean gradient 35mmHg. No aortic regurgitation. Tricuspid Valve Structurally normal tricuspid valve. No tricuspid stenosis. Trace tricuspid regurgitation. Pulmonic Valve Pulmonic valve not well visualized. Pericardium No pericardial effusion. Echo free space anterior to the right ventricle likely represents a fat pad. Aorta Aortic annulus normal. Ascending aorta not well visualized. CONCLUSIONS Diagnosis shortness of breath, non-Q wave myocardial infarction Normal LV size and function Normal RV size and function Moderate to severe aortic stenosis with a mean gradient of 35 mmHg Previewed by: Dr. Brice Collins MD (Electronically Signed) Final Date: 28 November 2023 13:13
--- NOTE | 2023-11-28 13:55 | P.PN ---
Subjective Progress Note Date: 11/28/23 Principal diagnosis: Acute exacerbation of COPD This is a 78-year-old white male with history of severe end-stage COPD, O2 dependent, prednisone dependent, patient is very similar to my service, patient has been a heavy smoker over the years, quit smoking supposedly about 15 days ago. Recently the patient has been cutting hay and grass, and he developed worsening shortness of breath over the last couple of days. Came in with to the ER with mostly symptoms of cough, wheezing, shortness of breath, no fever no chills no hemoptysis and no chest pain. Chest x-ray showed mostly basilar atelectasis, no clear-cut evidence of infiltrate, CT angiogram of the chest showed no evidence of pulmonary embolism severe emphysema is noted, there is no evidence of pneumonia or pulmonary edema there is however a trace of right-sided pleural effusion. WBC count is normal hemoglobin is 12.6 INR is 1.39 electrolytes are normal BUN is 17 creatinine 1.36 patient tested negative for influenza A, influenza B, RSV and COVID-19. Patient was evaluated today on 11/27/2023, patient is doing well, feels better today compared to yesterday less cough less wheezing less shortness of breath labs including CBC and basic metabolic profile are relatively normal. Chest x- ray and CT angiogram of the chest showed no evidence of acute pulmonary process Patient was evaluated today on 11/28/2023, feeling better, breathing easier, patient remains on heparin for his elevated troponin seen by cardiology, and the feeling is his troponin is related to demand supply mismatch. Nonetheless he was kept on heparin and echocardiogram was ordered. Patient was also placed on metoprolol 25 mg daily. Pulmonary raymond patient is feeling better breathing a lot easier Objective - Vital Signs Vital signs: Vital Signs Temp 98.4 F 11/28/23 12:00 Pulse 78 11/28/23 12:00 Resp 18 11/28/23 12:00 BP 133/71 11/28/23 12:00 Pulse Ox 94 L 11/28/23 12:00 FiO2 35 11/26/23 08:33 Intake & Output 11/27/23 11/28/23 11/28/23 18:59 06:59 18:59 Intake Total 1115.788 453.95 240 Output Total 1000 Balance 1115.788 -546.05 240 Weight 77.3 kg Intake: Intake, IV Titration 155.788 213.95 Amount Heparin Sod,Pork in 0.45% 155.788 213.95 NaCl 25,000 unit In 0.45 % NaCl 1 250ml.bag @ 12 UNITS/KG/HR 9.798 mls/hr IV .Q24H [facility] Rx#: [id number] Oral 960 240 240 Output: Urine 1000 Other: Voiding Method Toilet Toilet Toilet Urinal Urinal Urinal # Voids 1 - Exam GENERAL EXAM: Alert, pleasant 77-year-old male, on 3 L nasal cannula HEAD: Normocephalic. EYES: Normal reaction of pupils, equal size. NOSE: Clear with pink turbinates. THROAT: No erythema or exudates. NECK: No masses, no JVD. CHEST: No chest wall deformity. LUNGS: Diminished breath sound bilaterally no rhonchi no wheezes CVS: S1 and S2 normal with no audible murmur, regular rhythm. ABDOMEN: No hepatosplenomegaly, normal bowel sounds, no guarding or rigidity. SKIN: No rashes CENTRAL NERVOUS SYSTEM: Alert oriented x 3 no focal deficits, tone is normal in all 4 extremities. EXTREMITIES: no Clubbing edema or cyanosis - Labs CBC & Chem 7: 11/28/23 07:52 11/28/23 07:52 Labs: Abnormal Lab Results - Last 24 Hours (Table) 11/27/23 11/27/23 11/27/23 Range/Units 14:52 16:40 20:15 WBC (3.8-10.6) k/uL RBC (4.30-5.90) m/uL Hgb (13.0-17.5) gm/dL Hct (39.0-53.0) % RDW (11.5-15.5) % Neutrophils # (1.3-7.7) k/uL Lymphocytes # (1.0-4.8) k/uL APTT 52.1 H (22.0-30.0) sec Chloride (98-107) mmol/L Carbon Dioxide (22-30) mmol/L BUN (9-20) mg/dL Glucose (74-99) mg/dL POC Glucose (mg/dL) 330 H 271 H (70-110) mg/dL 11/28/23 11/28/23 11/28/23 Range/Units 06:06 07:52 07:52 WBC 11.2 H (3.8-10.6) k/uL RBC 3.71 L (4.30-5.90) m/uL Hgb 10.2 L (13.0-17.5) gm/dL Hct 32.8 L (39.0-53.0) % RDW 17.4 H (11.5-15.5) % Neutrophils # 10.0 H (1.3-7.7) k/uL Lymphocytes # 0.7 L (1.0-4.8) k/uL APTT 52.1 H (22.0-30.0) sec Chloride (98-107) mmol/L Carbon Dioxide (22-30) mmol/L BUN (9-20) mg/dL Glucose (74-99) mg/dL POC Glucose (mg/dL) 230 H (70-110) mg/dL 11/28/23 11/28/23 Range/Units 07:52 11:27 WBC (3.8-10.6) k/uL RBC (4.30-5.90) m/uL Hgb (13.0-17.5) gm/dL Hct (39.0-53.0) % RDW (11.5-15.5) % Neutrophils # (1.3-7.7) k/uL Lymphocytes # (1.0-4.8) k/uL APTT (22.0-30.0) sec Chloride 111 H (98-107) mmol/L Carbon Dioxide 18 L (22-30) mmol/L BUN 24 H (9-20) mg/dL Glucose 175 H (74-99) mg/dL POC Glucose (mg/dL) 263 H (70-110) mg/dL Microbiology - Last 24 Hours (Table) 11/26/23 02:50 Blood Culture Gram Stain - Preliminary Blood Blood Culture - Preliminary Coagulase Negative Staph Molecular ID 11/26/23 02:35 Blood Culture - Preliminary Blood Assessment and Plan Assessment: Impression: Acute exacerbation of COPD History of severe COPD, FEV1 is in the range of 46% of the predicted Chronic hypoxic respiratory failure [id number] smoking history continues to smoke until 2 weeks ago Dyslipidemia Generalized anxiety disorder Degenerative joint disease Previous history of SVT Recommendation: Continue bronchodilators, antibiotics and steroids Etiology is addressing his elevated troponin echocardiogram is pending remains on heparin Will likely recommend discharge once patient cleared by cardiology for discharge and workup is done Will continue to follow. Continue DVT prophylaxis/heparin subcu Continue nicotine patch Time with Patient: Less than 30
--- NOTE | 2023-11-28 14:18 | P.PN ---
Subjective Progress Note Date: 11/28/23 HISTORY OF PRESENTING ILLNESS 78-year-old male with PMH of COPD on 2.5 L of oxygen, chronic steroid depen dency, hypertension, hyperlipidemia, type 2 diabetes, prior history of [place], SVT, active smoker presents to the ER with worsening shortness of breath over last couple of days. He denies any substernal chest pressure, lightheadedness dizziness palpitation symptoms. His ECG showed ectopic atrial tachycardia with nonspecific ST changes Labs shows mildly elevated troponin of 0.087, 0.09, creatinine of 1.36 Pro-Dwight level of 0.2, CTA chest not show any evidence of PE or aortic aneurysms, did show severe emphysema PHYSICAL EXAMINATION Head: Normocephalic. Eyes: Sclerae nonicteric. Neck: Brisk carotid upstroke, no jugular venous distention. Lungs: Diminished breath sounds in bilateral bases with diffuse wheezing. Heart: Regular rate and rhythm, S1-S2 audible, mild systolic murmur audible Abdomen: Soft nontender, positive bowel sounds. Extremities: 1+ pitting edema bilateral lower extremity Neuro: Alert, oritented, no focal deficits. Detailed neuro exam was not performed. ASSESSMENT Mildly elevated troponin, likely type II NSTEMI from demand supply mismatch Acute on chronic hypoxic respiratory failure due to COPD exacerbation Severe COPD with FEV1 of 46% predicted AUGUSTINE Hypertension Dyslipidemia Type 2 diabetes Previous history of SVT PLAN Continue aspirin, Lipitor Start metoprolol 25 mg. Obtain echocardiogram Continue IV heparin drip Objective - Vital Signs Vital signs: Vital Signs Temp 98.2 F 11/28/23 08:00 Pulse 100 11/28/23 11:38 Resp 20 11/28/23 08:00 BP 136/70 11/28/23 08:00 Pulse Ox 94 L 11/28/23 08:00 FiO2 35 11/26/23 08:33 Intake & Output 11/27/23 11/28/23 11/28/23 18:59 06:59 18:59 Intake Total 1115.788 453.95 240 Output Total 1000 Balance 1115.788 -546.05 240 Weight 77.3 kg Intake: Intake, IV Titration 155.788 213.95 Amount Heparin Sod,Pork in 0.45% 155.788 213.95 NaCl 25,000 unit In 0.45 % NaCl 1 250ml.bag @ 12 UNITS/KG/HR 9.798 mls/hr IV .Q24H [facility] Rx#: [id number] Oral 960 240 240 Output: Urine 1000 Other: Voiding Method Toilet Toilet Toilet Urinal Urinal Urinal # Voids 1 - Labs CBC & Chem 7: 11/28/23 07:52 11/28/23 07:52 Labs: Abnormal Lab Results - Last 24 Hours (Table) 11/27/23 11/27/23 11/27/23 Range/Units 14:52 16:40 20:15 WBC (3.8-10.6) k/uL RBC (4.30-5.90) m/uL Hgb (13.0-17.5) gm/dL Hct (39.0-53.0) % RDW (11.5-15.5) % Neutrophils # (1.3-7.7) k/uL Lymphocytes # (1.0-4.8) k/uL APTT 52.1 H (22.0-30.0) sec Chloride (98-107) mmol/L Carbon Dioxide (22-30) mmol/L BUN (9-20) mg/dL Glucose (74-99) mg/dL POC Glucose (mg/dL) 330 H 271 H (70-110) mg/dL 11/28/23 11/28/23 11/28/23 Range/Units 06:06 07:52 07:52 WBC 11.2 H (3.8-10.6) k/uL RBC 3.71 L (4.30-5.90) m/uL Hgb 10.2 L (13.0-17.5) gm/dL Hct 32.8 L (39.0-53.0) % RDW 17.4 H (11.5-15.5) % Neutrophils # 10.0 H (1.3-7.7) k/uL Lymphocytes # 0.7 L (1.0-4.8) k/uL APTT 52.1 H (22.0-30.0) sec Chloride (98-107) mmol/L Carbon Dioxide (22-30) mmol/L BUN (9-20) mg/dL Glucose (74-99) mg/dL POC Glucose (mg/dL) 230 H (70-110) mg/dL 11/28/23 11/28/23 Range/Units 07:52 11:27 WBC (3.8-10.6) k/uL RBC (4.30-5.90) m/uL Hgb (13.0-17.5) gm/dL Hct (39.0-53.0) % RDW (11.5-15.5) % Neutrophils # (1.3-7.7) k/uL Lymphocytes # (1.0-4.8) k/uL APTT (22.0-30.0) sec Chloride 111 H (98-107) mmol/L Carbon Dioxide 18 L (22-30) mmol/L BUN 24 H (9-20) mg/dL Glucose 175 H (74-99) mg/dL POC Glucose (mg/dL) 263 H (70-110) mg/dL Microbiology - Last 24 Hours (Table) 11/26/23 02:50 Blood Culture Gram Stain - Preliminary Blood Blood Culture - Preliminary Coagulase Negative Staph Molecular ID 11/26/23 02:35 Blood Culture - Preliminary Blood
[2023-11-28 16:33] LABS: Glucose,Whole Blood 200 mg/dL (70-110)
[2023-11-28 20:59] LABS: Glucose,Whole Blood 406 mg/dL (70-110)
[2023-11-28] MEDS: INSULIN DETEMIR (LEVEMIR) 100 UNIT/ML SYR SQ SCH (21:41)
--- NOTE | 2023-11-29 03:16 | P.PN ---
Subjective Progress Note Date: 11/27/23 Patient is a 78-year-old male with a past medical history of COPD on home oxygen 2.5 L and prednisone dependent, hyperlipidemia, newly diagnosed diabetes type 2, history of [place], SVT, BPH and currently everyday smoker. Patient presents to ER with complaints of worsening shortness over the past couple of days. Patient states that his symptoms started few days ago and patient has been cutting behavior in the grass. Presents ER with complaints of shortness of breath wheezing and cough. Denies any fever or chills. No chest pain. No leg swelling. Chest x-ray showed similar subsegmental opacities with similar curvilinear components at the lung bases. No significant radiographic alteration from the prior examination. Differential consideration and remains bibasilar atelectasis or consolidation. Related stability suggest chronic underlying changes rather than infectious etiology. CTA chest was done which showed no evidence of PE. No thoracic aortic aneurysmal dilatation or dissection. Severe emphysematous changes. No evidence of acute airspace consolidation pulmonary edema or pneumothorax. Trace right pleural effusion. Patient was requiring 100% nonrebreather on admission. EKG showed ectopic atrial tachycardia. Laboratory data showed WBC 8.1 hemoglobin 12.6 and platelets 179 D-dimer 1.39 sodium 133 potassium 4.6 chloride 104 bicarb is 19 BUN 17 and creatinine 1.36 and blood sugar 108 lactic acid 2.1 troponin 0.087 and 0.097 Procalcitonin level is 0.22 and influenza A B RSV and COVID-19 PCR not detected. 11/27/2023 Patient is currently sitting on the side of the bed. Awake alert and oriented x 3. Requiring oxygen at 3 L via nasal cannula. No complaints of chest pain or worsening shortness of breath. No nausea vomiting abdominal pain or diarrhea. No cough or sputum production. Laboratory data showed WBC 11.0 hemoglobin 11.1 and platelets 213 sodium 137 chloride 110 potassium 4.2 bicarb is 19 BUN 20 and creatinine 1.08 and blood sugar is 234. A1c 8.3. Patient is being continued DuoNebs, Symbicort and IV Solu-Medrol 60 every 6 hourly. Patient is on antibiotics and off azithromycin. Remains on heparin drip due to elevated troponin level. Cardiology and pulmonary is on board. Current medications reviewed. Objective - Vital Signs Vital signs: Vital Signs Temp 97.5 F L 11/27/23 20:00 Pulse 84 11/27/23 20:20 Resp 18 11/27/23 20:00 BP 121/75 11/27/23 20:00 Pulse Ox 95 11/27/23 20:00 FiO2 35 11/26/23 08:33 Intake & Output 11/27/23 11/27/23 11/28/23 06:59 18:59 06:59 Intake Total 1115.788 Output Total 1000 Balance -1000 1115.788 Weight 77.7 kg Intake: Intake, IV Titration 155.788 Amount Heparin Sod,Pork in 0.45% 155.788 NaCl 25,000 unit In 0.45 % NaCl 1 250ml.bag @ 12 UNITS/KG/HR 9.798 mls/hr IV .Q24H [facility] Rx#: [id number] Oral 960 Output: Urine 1000 Other: Voiding Method Urinal Toilet Toilet Urinal Urinal # Voids 1 1 - Exam PHYSICAL EXAMINATION: Patient is lying in the bed comfortably, mild acute distress, awake alert and oriented.. HEENT: Normocephalic. Neck is supple. Pupils reactive. Nostrils clear. Oral cavity is moist. Neck reveals no JVD, carotid bruits, or thyromegaly. CHEST EXAMINATION: Trachea is central. Symmetrical expansion. Bilateral wheezing and scattered rhonchi. CARDIAC: Normal S1, S2 with no gallops. Systolic murmur ABDOMEN: Soft. Bowel sounds normal. No organomegaly. No abdominal bruits. Extremities: reveal no edema. No clubbing or cyanosis Neurologically awake, alert, oriented x3 with well-coordinated movements. No focal deficits noted Skin: No rash or skin lesions. Psychiatric: Coperative. Nonsuicidal Musculoskeletal: No joint swelling or deformity. Normal range of motion. - Labs CBC & Chem 7: 11/28/23 07:52 11/28/23 07:52 Labs: Abnormal Lab Results - Last 24 Hours (Table) 11/26/23 11/27/23 11/27/23 Range/Units 23:51 02:27 05:58 WBC (3.8-10.6) k/uL RBC (4.30-5.90) m/uL Hgb (13.0-17.5) gm/dL Hct (39.0-53.0) % RDW (11.5-15.5) % Neutrophils # (1.3-7.7) k/uL Lymphocytes # (1.0-4.8) k/uL APTT (22.0-30.0) sec Chloride (98-107) mmol/L Carbon Dioxide (22-30) mmol/L Glucose (74-99) mg/dL POC Glucose (mg/dL) 276 H 309 H (70-110) mg/dL Hemoglobin A1c (<=6.0) % Urine Protein Trace H (Negative) Urine Glucose (UA) 4+ H (Negative) 11/27/23 11/27/23 11/27/23 Range/Units 07:56 07:56 07:56 WBC 11.0 H (3.8-10.6) k/uL RBC 4.05 L (4.30-5.90) m/uL Hgb 11.1 L (13.0-17.5) gm/dL Hct 35.8 L (39.0-53.0) % RDW 17.5 H (11.5-15.5) % Neutrophils # 10.3 H (1.3-7.7) k/uL Lymphocytes # 0.4 L (1.0-4.8) k/uL APTT 38.2 H (22.0-30.0) sec Chloride (98-107) mmol/L Carbon Dioxide (22-30) mmol/L Glucose (74-99) mg/dL POC Glucose (mg/dL) (70-110) mg/dL Hemoglobin A1c 8.3 H (<=6.0) % Urine Protein (Negative) Urine Glucose (UA) (Negative) 11/27/23 11/27/23 11/27/23 Range/Units 07:56 11:17 14:52 WBC (3.8-10.6) k/uL RBC (4.30-5.90) m/uL Hgb (13.0-17.5) gm/dL Hct (39.0-53.0) % RDW (11.5-15.5) % Neutrophils # (1.3-7.7) k/uL Lymphocytes # (1.0-4.8) k/uL APTT 52.1 H (22.0-30.0) sec Chloride 110 H (98-107) mmol/L Carbon Dioxide 19 L (22-30) mmol/L Glucose 234 H (74-99) mg/dL POC Glucose (mg/dL) 190 H (70-110) mg/dL Hemoglobin A1c (<=6.0) % Urine Protein (Negative) Urine Glucose (UA) (Negative) 11/27/23 11/27/23 Range/Units 16:40 20:15 WBC (3.8-10.6) k/uL RBC (4.30-5.90) m/uL Hgb (13.0-17.5) gm/dL Hct (39.0-53.0) % RDW (11.5-15.5) % Neutrophils # (1.3-7.7) k/uL Lymphocytes # (1.0-4.8) k/uL APTT (22.0-30.0) sec Chloride (98-107) mmol/L Carbon Dioxide (22-30) mmol/L Glucose (74-99) mg/dL POC Glucose (mg/dL) 330 H 271 H (70-110) mg/dL Hemoglobin A1c (<=6.0) % Urine Protein (Negative) Urine Glucose (UA) (Negative) Microbiology - Last 24 Hours (Table) 11/26/23 02:35 Blood Culture - Preliminary Blood 11/26/23 02:50 Blood Culture Gram Stain - Preliminary Blood Blood Culture - Preliminary Molecular ID Assessment and Plan Assessment: Acute on chronic hypoxemic respiratory failure secondary to acute COPD exacerbation. Patient was requiring 100% nonrebreather on admission. Currently down to 3 L via nasal cannula. Mild elevated troponin level Lactic acidosis Acute COPD exacerbation on home oxygen via nasal cannula Severe COPD with FEV1 of 46% of predicted. Currently ongoing smoking with pack 50 pack years of smoking. Generalized anxiety Hypertension Hyperlipidemia New diagnosis diabetes type 2 [id number] Previous history of SVT DVT prophylaxis patient is on heparin drip currently Plan: Patient will be continued on telemonitoring. Continue with IV Solu-Medrol, DuoNebs and Symbicort. Continue with azithromycin. Patient was started on heparin drip due to elevated troponin level. Continue with oxygen limitation and titrate down to his home level of 2 to 3 L. Cardiology and pulmonary is on board.. Continue to follow closely. Time with Patient: Greater than 30
--- NOTE | 2023-11-29 03:22 | P.PN ---
Subjective Progress Note Date: 11/28/23 Patient is a 78-year-old male with a past medical history of COPD on home oxygen 2.5 L and prednisone dependent, hyperlipidemia, newly diagnosed diabetes type 2, history of [place], SVT, BPH and currently everyday smoker. Patient presents to ER with complaints of worsening shortness over the past couple of days. Patient states that his symptoms started few days ago and patient has been cutting behavior in the grass. Presents ER with complaints of shortness of breath wheezing and cough. Denies any fever or chills. No chest pain. No leg swelling. Chest x-ray showed similar subsegmental opacities with similar curvilinear components at the lung bases. No significant radiographic alteration from the prior examination. Differential consideration and remains bibasilar atelectasis or consolidation. Related stability suggest chronic underlying changes rather than infectious etiology. CTA chest was done which showed no evidence of PE. No thoracic aortic aneurysmal dilatation or dissection. Severe emphysematous changes. No evidence of acute airspace consolidation pulmonary edema or pneumothorax. Trace right pleural effusion. Patient was requiring 100% nonrebreather on admission. EKG showed ectopic atrial tachycardia. Laboratory data showed WBC 8.1 hemoglobin 12.6 and platelets 179 D-dimer 1.39 sodium 133 potassium 4.6 chloride 104 bicarb is 19 BUN 17 and creatinine 1.36 and blood sugar 108 lactic acid 2.1 troponin 0.087 and 0.097 Procalcitonin level is 0.22 and influenza A B RSV and COVID-19 PCR not detected. 11/27/2023 Patient is currently sitting on the side of the bed. Awake alert and oriented x 3. Requiring oxygen at 3 L via nasal cannula. No complaints of chest pain or worsening shortness of breath. No nausea vomiting abdominal pain or diarrhea. No cough or sputum production. Laboratory data showed WBC 11.0 hemoglobin 11.1 and platelets 213 sodium 137 chloride 110 potassium 4.2 bicarb is 19 BUN 20 and creatinine 1.08 and blood sugar is 234. A1c 8.3. Patient is being continued DuoNebs, Symbicort and IV Solu-Medrol 60 every 6 hourly. Patient is on antibiotics and off azithromycin. Remains on heparin drip due to elevated troponin level. Cardiology and pulmonary is on board. 11/28/2023 Patient is currently sitting on side of bed. Awake alert and oriented x 3. Breathing status is much improved. No cough or sputum production. No fever no chills. Currently on 3 L oxygen via nasal cannula. Heparin drip has been discontinued. 2D echocardiogram showed normal LV size and function. Normal RV size and function. Moderate to severe aortic stenosis with mean gradient of 35 mmHg. Laboratory data showed WBC 11.2 hemoglobin 10.2 and platelets 204 sodium 131 p otassium 4.2 chloride 109 bicarb is 18 BUN 24 and creatinine 1.01 and blood sugar 175. Current medications reviewed. Objective - Vital Signs Vital signs: Vital Signs Temp 97.9 F 11/28/23 16:00 Pulse 84 11/28/23 21:50 Resp 20 11/28/23 21:50 BP 124/53 11/28/23 16:00 Pulse Ox 94 L 11/28/23 16:00 FiO2 35 11/26/23 08:33 Intake & Output 11/28/23 11/28/23 11/29/23 06:59 18:59 06:59 Intake Total 453.95 358 540 Output Total 1000 650 Balance -546.05 -292 540 Weight 77.3 kg Intake: Intake, IV Titration 213.95 Amount Heparin Sod,Pork in 0.45% 213.95 NaCl 25,000 unit In 0.45 % NaCl 1 250ml.bag @ 12 UNITS/KG/HR 9.798 mls/hr IV .Q24H [facility] Rx#: [id number] Oral 240 358 540 Output: Urine 1000 650 Other: Voiding Method Toilet Toilet Urinal Urinal # Voids 1 2 - Exam PHYSICAL EXAMINATION: Patient is lying in the bed comfortably, mild acute distress, awake alert and oriented.. HEENT: Normocephalic. Neck is supple. Pupils reactive. Nostrils clear. Oral cavity is moist. Neck reveals no JVD, carotid bruits, or thyromegaly. CHEST EXAMINATION: Trachea is central. Symmetrical expansion. Mild expiratory wheezing. Nonlabored breathing. No rhonchi or crackles. CARDIAC: Normal S1, S2 with no gallops. Systolic murmur. ABDOMEN: Soft. Bowel sounds normal. No organomegaly. No abdominal bruits. Extremities: reveal no edema. No clubbing or cyanosis Neurologically awake, alert, oriented x3 with well-coordinated movements. No focal deficits noted Skin: No rash or skin lesions. Psychiatric: Coperative. Nonsuicidal Musculoskeletal: No joint swelling or deformity. Normal range of motion. - Labs CBC & Chem 7: 11/28/23 07:52 11/28/23 07:52 Labs: Abnormal Lab Results - Last 24 Hours (Table) 11/28/23 11/28/23 11/28/23 Range/Units 06:06 07:52 07:52 WBC 11.2 H (3.8-10.6) k/uL RBC 3.71 L (4.30-5.90) m/uL Hgb 10.2 L (13.0-17.5) gm/dL Hct 32.8 L (39.0-53.0) % RDW 17.4 H (11.5-15.5) % Neutrophils # 10.0 H (1.3-7.7) k/uL Lymphocytes # 0.7 L (1.0-4.8) k/uL APTT 52.1 H (22.0-30.0) sec Chloride (98-107) mmol/L Carbon Dioxide (22-30) mmol/L BUN (9-20) mg/dL Glucose (74-99) mg/dL POC Glucose (mg/dL) 230 H (70-110) mg/dL 11/28/23 11/28/23 11/28/23 Range/Units 07:52 11:27 16:28 WBC (3.8-10.6) k/uL RBC (4.30-5.90) m/uL Hgb (13.0-17.5) gm/dL Hct (39.0-53.0) % RDW (11.5-15.5) % Neutrophils # (1.3-7.7) k/uL Lymphocytes # (1.0-4.8) k/uL APTT (22.0-30.0) sec Chloride 111 H (98-107) mmol/L Carbon Dioxide 18 L (22-30) mmol/L BUN 24 H (9-20) mg/dL Glucose 175 H (74-99) mg/dL POC Glucose (mg/dL) 263 H 200 H (70-110) mg/dL 11/28/23 Range/Units 20:47 WBC (3.8-10.6) k/uL RBC (4.30-5.90) m/uL Hgb (13.0-17.5) gm/dL Hct (39.0-53.0) % RDW (11.5-15.5) % Neutrophils # (1.3-7.7) k/uL Lymphocytes # (1.0-4.8) k/uL APTT (22.0-30.0) sec Chloride (98-107) mmol/L Carbon Dioxide (22-30) mmol/L BUN (9-20) mg/dL Glucose (74-99) mg/dL POC Glucose (mg/dL) 406 H (70-110) mg/dL Microbiology - Last 24 Hours (Table) 11/26/23 02:35 Blood Culture - Preliminary Blood 11/26/23 02:50 Blood Culture Gram Stain - Preliminary Blood Blood Culture - Preliminary Coagulase Negative Staph Molecular ID Assessment and Plan Assessment: Acute on chronic hypoxemic respiratory failure secondary to acute COPD exacerbation. Patient was requiring 100% nonrebreather on admission. Currently down to 3 L via nasal cannula. Mild elevated troponin level likely demand Moderate to severe aortic stenosis. New diagnosis. Lactic acidosis. Resolved. Acute COPD exacerbation on home oxygen via nasal cannula Severe COPD with FEV1 of 46% of predicted. Currently ongoing smoking with pack 50 pack years of smoking. Generalized anxiety Hypertension Hyperlipidemia New diagnosis diabetes type 2 [id number] Previous history of SVT DVT prophylaxis. Heparin subcu Plan: Patient will be continued on telemonitoring. Continue with IV Solu-Medrol, DuoNebs and Symbicort. Continue with azithromycin. Heparin drip has been discontinued. 2D echocardiogram showed moderate to severe aortic stenosis. Cardiology recommends to continue aspirin and statin and started on metoprolol. Outpatient follow-up for TAVR evaluation. Continue with oxygen limitation and titrate down to his home level of 2 to 3 L. Cardiology and pulmonary is on board.. Continue to follow closely. Anticipate discharge in the next 24 hours. Time with Patient: Greater than 30
[2023-11-29 06:13] LABS: Glucose,Whole Blood 190 mg/dL (70-110)
[2023-11-29 08:04] LABS: Anisocytosis Slight; Basophils % (A) 0 %; Eosinophils # (A) 0.1 k/uL (0-0.7); Eosinophils % (A) 1 %; HCT 33.8 % (39.0-53.0); HGB 10.3 gm/dL (13.0-17.5); Hypochromasia Moderate; Lymphocytes # (A) 0.8 k/uL (1.0-4.8); Lymphocytes % (A) 8 %; MCH 27.2 pg (25.0-35.0); MCHC 30.6 g/dL (31.0-37.0); MCV 88.9 fL (80.0-100.0); Mean Platelet Volume 8.8; Monocytes # (A) 0.5 k/uL (0-1.0); Monocytes % (A) 5 %; Neutrophils % (A) 86 %; Platelet Count 200 k/uL (150-450); RDW 17.7 % (11.5-15.5); WBC 10.4 k/uL (3.8-10.6)
[2023-11-29 08:11] LABS: Glucose,Whole Blood 175 mg/dL (70-110)
[2023-11-29] MEDS: INSULIN ASPART (NovoLOG) 100 UNIT/ML VIAL SQ SCH (08:20)
[2023-11-29] MEDS: ATORVASTATIN 40 MG TAB PO SCH (08:21)
[2023-11-29] MEDS: HEPARIN SODIUM,PORCINE 5,000 UNIT/ML 1 ML VIAL SQ SCH (08:22)
[2023-11-29 08:25] LABS: African American GFR (CKD) >90 (>60 ml/min/1.73 sqM); Anion Gap 3 mmol/L; Blood Urea Nitrogen 25 mg/dL (9-20); Calcium 9.1 mg/dL (8.4-10.2); Carbon Dioxide 24 mmol/L (22-30); Chloride 110 mmol/L (98-107); Glucose 175 mg/dL (74-99); Non-African American GFR(CKD) 83 (>60 ml/min/1.73 sqM); Potassium 4.4 mmol/L (3.5-5.1); Sodium 137 mmol/L (137-145)
[2023-11-29] MEDS: IPRATROPIUM-ALBUTEROL 3 ML NEB INHALATION SCH (09:12)
[2023-11-29 10:30] VITALS: TEMP 98.2
[2023-11-29 11:29] LABS: Glucose,Whole Blood 340 mg/dL (70-110)
--- NOTE | 2023-11-29 12:22 | P.PN ---
Subjective Progress Note Date: 11/29/23 Principal diagnosis: Acute exacerbation of COPD This is a 78-year-old white male with history of severe end-stage COPD, O2 dependent, prednisone dependent, patient is very similar to my service, patient has been a heavy smoker over the years, quit smoking supposedly about 15 days ago. Recently the patient has been cutting hay and grass, and he developed worsening shortness of breath over the last couple of days. Came in with to the ER with mostly symptoms of cough, wheezing, shortness of breath, no fever no chills no hemoptysis and no chest pain. Chest x-ray showed mostly basilar atelectasis, no clear-cut evidence of infiltrate, CT angiogram of the chest showed no evidence of pulmonary embolism severe emphysema is noted, there is no evidence of pneumonia or pulmonary edema there is however a trace of right-sided pleural effusion. WBC count is normal hemoglobin is 12.6 INR is 1.39 electrolytes are normal BUN is 17 creatinine 1.36 patient tested negative for influenza A, influenza B, RSV and COVID-19. Patient was evaluated today on 11/27/2023, patient is doing well, feels better today compared to yesterday less cough less wheezing less shortness of breath labs including CBC and basic metabolic profile are relatively normal. Chest x- ray and CT angiogram of the chest showed no evidence of acute pulmonary process Patient was evaluated today on 11/28/2023, feeling better, breathing easier, patient remains on heparin for his elevated troponin seen by cardiology, and the feeling is his troponin is related to demand supply mismatch. Nonetheless he was kept on heparin and echocardiogram was ordered. Patient was also placed on metoprolol 25 mg daily. Pulmonary raymond patient is feeling better breathing a lot easier Patient was evaluated today on 11/29/2023, patient is feeling much better, he wants to go home today. Less cough less wheezing less shortness of breath. His echocardiogram did show evidence of moderate to severe aortic stenosis with a mean gradient of 35, the patient will need to have follow-up with cardiology and eventually may require TONY to decide whether the patient may require TAVR. Radiology apparently cleared the patient for discharge, and I will clear for discharge myself with the plans to follow-up on outpatient basis Objective - Vital Signs Vital signs: Vital Signs Temp 98.2 F 11/29/23 08:20 Pulse 84 11/29/23 12:11 Resp 18 11/29/23 08:20 BP 165/79 11/29/23 08:20 Pulse Ox 95 11/29/23 08:20 FiO2 35 11/26/23 08:33 Intake & Output 11/28/23 11/29/23 11/29/23 18:59 06:59 18:59 Intake Total 358 540 350 Output Total 650 Balance -292 540 350 Weight 77.4 kg Intake: Oral 358 540 350 Output: Urine 650 Other: Voiding Method Toilet Toilet Toilet Urinal Urinal Urinal # Voids 1 1 - Exam GENERAL EXAM: Alert, pleasant 77-year-old male, on 3 L nasal cannula HEAD: Normocephalic. EYES: Normal reaction of pupils, equal size. NOSE: Clear with pink turbinates. THROAT: No erythema or exudates. NECK: No masses, no JVD. CHEST: No chest wall deformity. LUNGS: Diminished breath sound bilaterally no rhonchi no wheezes CVS: S1 and S2 normal with no audible murmur, regular rhythm. ABDOMEN: No hepatosplenomegaly, normal bowel sounds, no guarding or rigidity. SKIN: No rashes CENTRAL NERVOUS SYSTEM: Alert oriented x 3 no focal deficits, tone is normal in all 4 extremities. EXTREMITIES: no Clubbing edema or cyanosis - Labs CBC & Chem 7: 11/29/23 07:51 11/29/23 07:51 Labs: Abnormal Lab Results - Last 24 Hours (Table) 11/28/23 11/28/23 11/29/23 Range/Units 16:28 20:47 05:58 RBC (4.30-5.90) m/uL Hgb (13.0-17.5) gm/dL Hct (39.0-53.0) % MCHC (31.0-37.0) g/dL RDW (11.5-15.5) % Neutrophils # (1.3-7.7) k/uL Lymphocytes # (1.0-4.8) k/uL Chloride (98-107) mmol/L BUN (9-20) mg/dL Glucose (74-99) mg/dL POC Glucose (mg/dL) 200 H 406 H 190 H (70-110) mg/dL 11/29/23 11/29/23 11/29/23 Range/Units 07:51 07:51 08:09 RBC 3.80 L (4.30-5.90) m/uL Hgb 10.3 L (13.0-17.5) gm/dL Hct 33.8 L (39.0-53.0) % MCHC 30.6 L (31.0-37.0) g/dL RDW 17.7 H (11.5-15.5) % Neutrophils # 9.0 H (1.3-7.7) k/uL Lymphocytes # 0.8 L (1.0-4.8) k/uL Chloride 110 H (98-107) mmol/L BUN 25 H (9-20) mg/dL Glucose 175 H (74-99) mg/dL POC Glucose (mg/dL) 175 H (70-110) mg/dL 11/29/23 Range/Units 11:27 RBC (4.30-5.90) m/uL Hgb (13.0-17.5) gm/dL Hct (39.0-53.0) % MCHC (31.0-37.0) g/dL RDW (11.5-15.5) % Neutrophils # (1.3-7.7) k/uL Lymphocytes # (1.0-4.8) k/uL Chloride (98-107) mmol/L BUN (9-20) mg/dL Glucose (74-99) mg/dL POC Glucose (mg/dL) 340 H (70-110) mg/dL Microbiology - Last 24 Hours (Table) 11/26/23 02:50 Blood Culture Gram Stain - Final Blood Blood Culture - Final Coagulase Negative Staph Molecular ID 11/26/23 02:35 Blood Culture - Preliminary Blood Assessment and Plan Assessment: Impression: Acute exacerbation of COPD History of severe COPD, FEV1 is in the range of 46% of the predicted Chronic hypoxic respiratory failure [id number] smoking history continues to smoke until 2 weeks ago Dyslipidemia Moderate severe aortic stenosis, noted on echocardiogram Generalized anxiety disorder Degenerative joint disease Previous history of SVT Recommendation: Will clear the patient for discharge if cleared by cardiology Continue bronchodilators, antibiotics and steroids He will need outpatient follow-up regarding his aortic stenosis and possibly TONY Continue nicotine patch Patient to go back on his usual medications and oxygen at home, and prednisone he is maintained on 10 mg of prednisone daily. Time with Patient: Less than 30
[2023-11-29 16:26] LABS: Glucose,Whole Blood 211 mg/dL (70-110)
[2023-11-29 17:10] VITALS: BP 154/68; PULSE 63; RESP 18
--- NOTE | 2023-11-29 19:57 | P.PN ---
Subjective Progress Note Date: 11/29/23 HISTORY OF PRESENTING ILLNESS 78-year-old male with PMH of COPD on 2.5 L of oxygen, chronic steroid depen dency, hypertension, hyperlipidemia, type 2 diabetes, prior history of [place], SVT, active smoker presents to the ER with worsening shortness of breath over last couple of days. He denies any substernal chest pressure, lightheadedness dizziness palpitation symptoms. His ECG showed ectopic atrial tachycardia with nonspecific ST changes Labs shows mildly elevated troponin of 0.087, 0.09, creatinine of 1.36 Pro-Dwight level of 0.2, CTA chest not show any evidence of PE or aortic aneurysms, did show severe emphysema November 29, 2023 Progress note Denies any chest pain chest pressure shortness of breath is improved much. Denies any lightheadedness dizziness PHYSICAL EXAMINATION Head: Normocephalic. Eyes: Sclerae nonicteric. Neck: Brisk carotid upstroke, no jugular venous distention. Lungs: Diminished breath sounds in bilateral bases with diffuse wheezing. Heart: Regular rate and rhythm, S1-S2 audible, mild systolic murmur audible Abdomen: Soft nontender, positive bowel sounds. Extremities: 1+ pitting edema bilateral lower extremity Neuro: Alert, oritented, no focal deficits. Detailed neuro exam was not performed. ASSESSMENT Mildly elevated troponin, likely type II NSTEMI from demand supply mismatch Acute on chronic hypoxic respiratory failure due to COPD exacerbation Severe COPD with FEV1 of 46% predicted AUGUSTINE Hypertension Dyslipidemia Type 2 diabetes Previous history of SVT PLAN Echocardiogram showed Moderate to severe aortic stenosis, preserved LVEF. Mean gradient 35 mmHg. Continue aspirin Lipitor Metoprolol 25 mg twice daily Avoid dropping his blood pressure below 110 mmHg Okay to be discharged from cardiac standpoint. Outpatient heart catheterization for TAVR workup. Outpatient repeat echocardiogram to reevaluate the aortic mean gradient and VTI ratio Objective - Vital Signs Vital signs: Vital Signs Temp 98.2 F 11/29/23 08:20 Pulse 68 11/29/23 16:07 Resp 18 11/29/23 15:45 BP 154/68 11/29/23 15:45 Pulse Ox 93 L 11/29/23 15:45 FiO2 35 11/26/23 08:33 Intake & Output 11/29/23 11/29/23 11/30/23 06:59 18:59 06:59 Intake Total 540 1188 Balance 540 1188 Weight 77.4 kg Intake: Oral 540 1188 Other: Voiding Method Toilet Toilet Urinal Urinal # Voids 1 3 - Labs CBC & Chem 7: 11/29/23 07:51 11/29/23 07:51 Labs: Abnormal Lab Results - Last 24 Hours (Table) 11/28/23 11/29/23 11/29/23 Range/Units 20:47 05:58 07:51 RBC 3.80 L (4.30-5.90) m/uL Hgb 10.3 L (13.0-17.5) gm/dL Hct 33.8 L (39.0-53.0) % MCHC 30.6 L (31.0-37.0) g/dL RDW 17.7 H (11.5-15.5) % Neutrophils # 9.0 H (1.3-7.7) k/uL Lymphocytes # 0.8 L (1.0-4.8) k/uL Chloride (98-107) mmol/L BUN (9-20) mg/dL Glucose (74-99) mg/dL POC Glucose (mg/dL) 406 H 190 H (70-110) mg/dL 11/29/23 11/29/23 11/29/23 Range/Units 07:51 08:09 11:27 RBC (4.30-5.90) m/uL Hgb (13.0-17.5) gm/dL Hct (39.0-53.0) % MCHC (31.0-37.0) g/dL RDW (11.5-15.5) % Neutrophils # (1.3-7.7) k/uL Lymphocytes # (1.0-4.8) k/uL Chloride 110 H (98-107) mmol/L BUN 25 H (9-20) mg/dL Glucose 175 H (74-99) mg/dL POC Glucose (mg/dL) 175 H 340 H (70-110) mg/dL 11/29/23 Range/Units 16:25 RBC (4.30-5.90) m/uL Hgb (13.0-17.5) gm/dL Hct (39.0-53.0) % MCHC (31.0-37.0) g/dL RDW (11.5-15.5) % Neutrophils # (1.3-7.7) k/uL Lymphocytes # (1.0-4.8) k/uL Chloride (98-107) mmol/L BUN (9-20) mg/dL Glucose (74-99) mg/dL POC Glucose (mg/dL) 211 H (70-110) mg/dL Microbiology - Last 24 Hours (Table) 11/26/23 02:35 Blood Culture - Preliminary Blood 11/26/23 02:50 Blood Culture Gram Stain - Final Blood Blood Culture - Final Coagulase Negative Staph Molecular ID
[2023-11-30] MEDS ORDERED: predniSONE 20 MG TAB PO SCH (09:00)
--- NOTE | 2023-12-22 21:42 | CDI ---
Documentation Clarification Form Date: 12/22/2023 09:32:25 PM From: Marie Blas Phone: Admit Date: 11/26/2023 06:34:00 AM Patient Name: Ludwin Golden Visit Number: [id number] Discharge Date: 11/29/2023 08:00:00 PM ATTENTION: The Clinical Documentation Specialists (CDI) and [facility] Coding Staff appreciate your assistance in clarifying documentation. Please respond to the clarification below the line at the bottom and electronically sign. The CDI & [facility] Coding staff will review the response and follow-up if needed. Please note: Queries are made part of the Legal Health Record. If you have any questions, please contact the author of this message via ITS. Doctor/Provider: Mayo Galan Your patient is receiving the following: insulin. Please clarify what condition/diagnosis is being treated. History/Risk Factors: 78yo M, ACHRF, AECOPD, NSTEMI II, JOHN, HTN, HLD, IDDMII, lactic acidosis Clinical indicators: A1C: 8.3 Glucose: 11/25 108-114 11/26 190-330 8 175- 406 11/28 175-406 Treatment: Aspart (Novolog) 100u /Ml Vial SQ 12 unit; Insulin Detemir 15u; Insulin Detemir (Levemir) 100u/Ml Syr SQ 15u What diagnosis are you treating with Novolog & Detemir? [ x ] Diabetes Type 2 with hyperglycemia [ ] No additional diagnosis [ ] Other, please specify [ ] Unable to determine (Template Last Reviewed: May 2020) MTDD
== END 2023-11-29 20:00 | disposition home or self-care (01) | DRG 190 ==
LOC: EC 23:43 → 3SCARD 11-26 06:34
PROVIDERS: ADMIT Hospitalist; ATTEND Hospitalist
DX: J44.1 Chronic obstructive pulmonary disease with (acute) exacerbation (principal); I21.A1 Myocardial infarction type 2; J96.21 Acute and chronic respiratory failure with hypoxia; N17.9 Acute kidney failure, unspecified; E87.20 Acidosis, unspecified; I47.19 Other supraventricular tachycardia; E11.65 Type 2 diabetes mellitus with hyperglycemia; Z99.81 Dependence on supplemental oxygen; I10 Essential (primary) hypertension; I35.0 Nonrheumatic aortic (valve) stenosis; F17.210 Nicotine dependence, cigarettes, uncomplicated; F41.1 Generalized anxiety disorder; E78.5 Hyperlipidemia, unspecified; I25.2 Old myocardial infarction; M19.90 Unspecified osteoarthritis, unspecified site; N40.0 Benign prostatic hyperplasia without lower urinary tract symptoms; Z96.643 Presence of artificial hip joint, bilateral; Z11.52 Encounter for screening for COVID-19; Z79.82 Long term (current) use of aspirin; Z79.51 Long term (current) use of inhaled steroids; Z79.899 Other long term (current) drug therapy; Z79.52 Long term (current) use of systemic steroids; Z79.84 Long term (current) use of oral hypoglycemic drugs; Z88.0 Allergy status to penicillin
CPT/HCPCS: 36415; 71046; 71275; 80048; 80053; 81003; 83036; 83605; 83880; 84145; 84484; 85025; 85379; 85610; 85730; 87040; 87636; 93005; 93306; 94640; 94760; 96365; 96367; 96375; 99291

== ENCOUNTER 2023-11-30 13:15 | Inpatient (IN) | payer MEDICARE ==
--- NOTE | 2023-11-30 14:09 | ED ---
General Adult HPI - General Source: patient, EMS, RN notes reviewed, old records reviewed Mode of arrival: EMS Limitations: no limitations <Lloyd Coreas - Last Filed: 11/30/23 16:37> <Hilda Orona - Last Filed: 12/30/23 19:29> - General Chief complaint: Shortness of Breath Stated complaint: chest pain Time Seen by Provider: 11/30/23 14:00 - History of Present Illness Initial comments: This is a 78-year-old male who presents to the emergency department stating that he had about 10 minutes of chest pain earlier today and some shortness of breath. Patient states the chest pain is gone but he continued having shortness of breath. Patient states she was just in the hospital yesterday and was discharged home. Patient states she does not know exactly what they found when they were here. Patient states he also had a fever of 101 degrees at home. Patient does complain of a cough but denies any significant sputum production. Patient denies any abdominal pain patient has any nausea vomiting. Patient has any back pain. (Lloyd Coreas) - Related Data Home Medications Medication Instructions Recorded Confirmed Aspirin 81 mg PO DAILY 07/17/16 11/30/23 Budesonide-Formot 160-4.5 Mcg 2 puff INHALATION RT-BID 07/17/16 11/30/23 [Symbicort 160-4.5 Mcg Inhaler] Albuterol Sulfate [Albuterol 2 puff PO RT-Q4H PRN 04/13/23 11/30/23 Sulfate Hfa] Cetirizine HCl [Zyrtec] 10 mg PO DAILY 11/26/23 11/30/23 Empagliflozin [Jardiance] 10 mg PO DAILY 11/26/23 11/30/23 Famotidine [Pepcid] 20 mg PO BID 11/26/23 11/30/23 Ipratropium-Albuterol Nebulize 3 ml INHALATION RT-Q4H 11/26/23 11/30/23 [Duoneb 0.5 mg-3 mg/3 ml Soln] Montelukast [Singulair] 10 mg PO DAILY 11/26/23 11/30/23 Multivit-Mins/Iron/Folic/Lycop 1 tab PO DAILY 11/26/23 11/30/23 [Centrum Men's Tablet] Nicotine 21Mg/24Hr Patch [Habitrol] 1 patch TRANSDERM DAILY PRN 11/26/23 11/30/23 Tamsulosin [Flomax] 0.4 mg PO DAILY 11/26/23 11/30/23 Zolpidem [Ambien] 5 mg PO HS PRN 11/26/23 11/30/23 buPROPion HCL [buPROPion HCL SR] 100 mg PO DAILY 11/26/23 11/30/23 metFORMIN HCL 500 mg PO BID 11/26/23 11/30/23 tiZANidine [Zanaflex] 4 mg PO DAILY PRN 11/26/23 11/30/23 Previous Rx's Medication Instructions Recorded predniSONE 10 mg PO DAILY 8 Days #20 tab 06/10/23 Atorvastatin [Lipitor] 40 mg PO DAILY #30 tab 11/29/23 Metoprolol Tartrate [Lopressor] 25 mg PO BID #60 tab 11/29/23 Allergies Allergy/AdvReac Type Severity Reaction Status Date / Time Penicillins Allergy Rash/Hives Verified 11/26/23 09:43 Review of Systems ROS Other: All systems not noted in ROS Statement are negative. <Lloyd Coreas - Last Filed: 11/30/23 16:37> ROS Other: All systems not noted in ROS Statement are negative. <Hilda Orona - Last Filed: 12/30/23 19:29> ROS Statement: Those systems with pertinent positive or pertinent negative responses have been documented in the HPI. Past Medical History Past Medical History: Chest Pain / Angina, COPD, Diabetes Mellitus, Hyperlipidemia, Myocardial Infarction (PA), Osteoarthritis (OA), Pneumonia, Prostate Disorder, Supraventricular Tachycardia (SVT) Additional Past Medical History / Comment(s): Chronic hypoxic respiratory failure with home oxygen pt mostly just wears at night, past acute hypoxic respiratory failure requiring bipap, newly diagnosed NIDDM type II, BPH, UTI Last Myocardial Infarction Date:: 2008 History of Any Multi-Drug Resistant Organisms: None Reported Past Surgical History: Back Surgery, Heart Catheterization, Hernia Repair, Joint Replacement, Orthopedic Surgery Additional Past Surgical History / Comment(s): microlaryngoscopy w/ lt vocal cord bx-neg, bronch-lung bx-neg, lt inguinal hernia, low back surgery, bilateral total hip arthroplasties, bilateral cataracts removed. Past Anesthesia/Blood Transfusion Reactions: No Reported Reaction Past Psychological History: No Psychological Hx Reported Smoking Status: Former smoker Past Alcohol Use History: Occasional Past Drug Use History: None Reported - Past Family History Mother Family Medical History: COPD, Diabetes Mellitus Father Family Medical History: COPD, Diabetes Mellitus Brother(s) Family Medical History: Cancer Additional Family Medical History / Comment(s): leukemia <Lloyd Coreas - Last Filed: 11/30/23 16:37> General Exam Limitations: no limitations <Lloyd Coreas - Last Filed: 11/30/23 16:37> - General Exam Comments Initial Comments: GENERAL: Patient is well-developed and well-nourished. Patient is nontoxic and well- hydrated and is in mild distress. ENT: Neck is soft and supple. No significant lymphadenopathy is noted. Oropharynx is clear. Moist mucous membranes. Neck has full range of motion without eliciting any pain. EYES: The sclera were anicteric and conjunctiva were pink and moist. Extraocular movements were intact and pupils were equal round and reactive to light. Eyelids were unremarkable. PULMONARY: Unlabored respirations. Good breath sounds bilaterally. No audible rales rhonchi or wheezing was noted. CARDIOVASCULAR: There is a regular rate and rhythm without any murmurs gallops or rubs. ABDOMEN: Soft and nontender with normal bowel sounds. SKIN: Skin is clear with no lesions or rashes and otherwise unremarkable. NEUROLOGIC: Patient is alert and oriented x3. Cranial nerves II through XII are grossly intact. Motor and sensory are also intact. Normal speech, volume and content. Symmetrical smile. MUSCULOSKELETAL: Normal extremities with adequate strength and full range of motion. LYMPHATICS: No significant lymphadenopathy is noted PSYCHIATRIC: Normal psychiatric evaluation. (CoreasLloyd) Course Vital Signs 11/30/23 11/30/23 11/30/23 13:21 16:25 16:38 Temperature 100.1 F H Pulse Rate 107 H 64 75 Respiratory 22 Rate Blood Pressure 93/61 O2 Sat by Pulse 98 Oximetry Fraction of Inspired Oxygen (FIO2) 11/30/23 11/30/23 11/30/23 16:56 19:00 19:09 Temperature Pulse Rate 74 Respiratory Rate Blood Pressure 77/46 64/40 O2 Sat by Pulse 97 Oximetry Fraction of 40 Inspired Oxygen (FIO2) 11/30/23 11/30/23 11/30/23 19:30 19:36 19:55 Temperature Pulse Rate 81 76 78 Respiratory 20 18 Rate Blood Pressure 87/54 86/55 O2 Sat by Pulse 97 Oximetry Fraction of Inspired Oxygen (FIO2) 11/30/23 11/30/23 11/30/23 20:00 20:14 21:00 Temperature Pulse Rate 79 85 Respiratory 20 48 H Rate Blood Pressure 90/55 76/52 O2 Sat by Pulse 78 L Oximetry Fraction of Inspired Oxygen (FIO2) 11/30/23 11/30/23 11/30/23 21:24 21:51 21:59 Temperature 96.9 F L Pulse Rate 82 Respiratory 32 H Rate Blood Pressure 106/57 O2 Sat by Pulse 100 Oximetry Fraction of 40 40 Inspired Oxygen (FIO2) 11/30/23 11/30/23 11/30/23 22:55 23:30 23:50 Temperature Pulse Rate 75 73 Respiratory 24 24 Rate Blood Pressure 87/59 84/53 O2 Sat by Pulse 100 98 Oximetry Fraction of 100 Inspired Oxygen (FIO2) 11/30/23 12/01/23 12/01/23 23:51 00:00 00:30 Temperature Pulse Rate 77 71 Respiratory 31 H 24 Rate Blood Pressure 89/58 161/85 O2 Sat by Pulse 98 99 Oximetry Fraction of 50 Inspired Oxygen (FIO2) 12/01/23 12/01/23 12/01/23 01:00 01:18 01:30 Temperature Pulse Rate 70 78 70 Respiratory 24 24 Rate Blood Pressure 170/83 177/93 O2 Sat by Pulse 98 99 Oximetry Fraction of Inspired Oxygen (FIO2) 12/01/23 12/01/23 12/01/23 01:32 02:00 02:30 Temperature Pulse Rate 80 75 73 Respiratory 24 Rate Blood Pressure 151/88 113/71 O2 Sat by Pulse 96 96 Oximetry Fraction of 40 Inspired Oxygen (FIO2) 12/01/23 12/01/23 02:48 02:50 Temperature Pulse Rate 72 Respiratory 5 L Rate Blood Pressure 128/76 O2 Sat by Pulse 96 Oximetry Fraction of 50 Inspired Oxygen (FIO2) Procedures - Central Line Placement Left IJ Consent Obtained: verbal consent Patient Placed on Monitor/Pulse Ox: Yes Prep: mask, gown, gloves Central Line Prep: Chlorhexidine scrub, sterile drapes applied Local Anesthesia Used: Lidocaine 1% Amount of Anesthesia Used (mls): 2 Ultrasound Used for Placement: Yes Central Line Lumen Inserted: triple Bloods Obtained for Lab: No Central Line Position: good blood return, all ports aspirated, flushed, capped, sutured in place with 2-0 silk Dressing Applied: Tegaderm Post Procedure X-Ray: tip of catheter in good position Patient Tolerated Procedure: well Complications: none - Intubation Sedative: Ketamine Mg Given: 160 Paralytic: Succinylcholine (120) Mg Given: 120 Laryngoscope: Marisa Size: 4 ET Tube Size: 7.5 ET Tube Uncuffed: No Tube Secured Depth (cm): 25 Tube Secured Location: teeth Tube Placement Confirmation: visualized tube passing through cords, equal breath sounds bilaterally, no breath sounds over epigastrium, confirmation by capnometry Patient Tolerated Procedure: well Intubation Complications: none <Hilda Orona - Last Filed: 12/30/23 19:29> - Intubation Additional Comments: Patient intubated via Glidescope. Ketamine administered and first attempt at intubation attempted without paralysis in order to preserve respiratory drive. Initial attempt failed so paralytics were given the succinylcholine. Second attempt successful. Patient tolerated procedure well. Confirmed with chest x- ray, initial chest x-ray did show ET tub approximately 1 to 2 cm above the mile on my interpretation so ET tube was pulled out approximately 3 cm. ET tube in satisfactory position on radiologist interpretation. (Hilda Orona) Medical Decision Making - Lab Data Result diagrams: 11/30/23 15:48 11/30/23 14:52 <Lloyd Coreas - Last Filed: 11/30/23 16:37> - Lab Data Result diagrams: 12/01/23 02:01 12/01/23 02:01 <Hilda Orona - Last Filed: 12/30/23 19:29> - Medical Decision Making EKG is interpreted by myself read EKG shows sinus rhythm at 97 bpm parables 181 QRS is 85 QT interval 305 QTc is 360 Was pt. sent in by a medical professional or institution (MANUEL Contreras, INFECTION CONTROL PREVENTIONIST, urgent care, hospital, or long-term...) When possible be specific @ -No Did you speak to anyone other than the patient for history (EMS, parent, family, police, friend...)? What history was obtained from this source @ -No Did you review nursing and triage notes (agree or disagree)? Why? @ -I reviewed and agree with nursing and triage notes Were old charts reviewed (outside hosp., previous admission, EMS record, old EKG, old radiological studies, urgent care reports/EKG's, long-term records)? Report findings @ -No old charts were reviewed Differential Diagnosis? @ -Differential Dyspnea: Coronary syndrome, arrhythmia, tamponade, asthma, COPD, pulmonary embolism, pneumonia, pneumothorax, pulmonary effusion, anaphylaxis, diabetic ketoacidosis, flailed chest, pulmonary contusion, diaphragmatic rupture, anemia, neuromuscular, this is not meant to be an all-inclusive list. EKG interpreted by me (3pts min.). @ -As above X-rays interpreted by me (1pt min.). @ -Chest x-ray shows right lower lobe pneumonia CT interpreted by me (1pt min.). @ -None done U/S interpreted by me (1pt. min.). @ -None done What testing was considered but not performed or refused? (CT, X-rays, U/S, labs)? Why? @ -None What meds were considered but not given or refused? Why? @ -None Did you discuss the management of the patient with other professionals (professionals i.e. , PA, INFECTION CONTROL PREVENTIONIST, lab, RT, psych nurse, social media marketing specialist, ems instructor, teacher, state patrol officer, case packer)? Give summary @ -[facility] [place] [facility] the patient admit the patient wrote admitting orders Was smoking cessation discussed for >3mins.? @ -No Was critical care preformed (if so, how long)? @ -No Were there social determinants of health that impacted care today? How? (H omelessness, low income, unemployed, alcoholism, drug addiction, transportation, low edu. Level, literacy, decrease access to med. care, [facility], rehab)? @ -No Was there de-escalation of care discussed even if they declined (Discuss DNR or withdrawal of care, Hospice)? DNR status @ -No What co-morbidities impacted this encounter? (DM, HTN, Smoking, COPD, CAD, Cancer, CVA, ARF, Chemo, Hep., AIDS, mental health diagnosis, sleep apnea, morbid obesity)? @ -None Was patient admitted / discharged? Hospital course, mention meds given and route, prescriptions, significant lab abnormalities, going to OR and other pertinent info. @ -Patient had a right lower lobe pneumonia/start the patient on antibiotics. Patient had a low-grade fever while in the emergency department. Patient experienced no chest pain while in the emergency department. Patient was also given a liter and half of fluid. Patient was given a breathing treatment as well. Undiagnosed new problem with uncertain prognosis? @ -No Drug Therapy requiring intensive monitoring for toxicity (Heparin, Nitro, Insulin, Cardizem)? @ -No Were any procedures done? @ -No Diagnosis/symptom? @ -Normal Acute, or Chronic, or Acute on Chronic? @ -Acute Uncomplicated (without systemic symptoms) or Complicated (systemic symptoms)? @ -Complicated Side effects of treatment? @ -No Exacerbation, Progression, or Severe Exacerbation? @ -No Poses a threat to life or bodily function? How? (Chest pain, USA, PA, pneumonia, PE, COPD, DKA, ARF, appy, cholecystitis, CVA, Diverticulitis, Homicidal, Suicidal, threat to staff... and all critical care pts) @ -Yes this can lead to hypoxia and endorgan dysfunction. Diagnosis/symptom? @ -COPD exacerbation Acute, or Chronic, or Acute on Chronic? @ -Acute Uncomplicated (without systemic symptoms) or Complicated (systemic symptoms)? @ -Complicated Side effects of treatment? @ -None Exacerbation, Progression, or Severe Exacerbation] @ -No Poses a threat to life or bodily function? @ -No Diagnosis/symptom? @ -Renal insufficiency Acute, or Chronic, or Acute on Chronic? @ -Acute Uncomplicated (without systemic symptoms) or Complicated (systemic symptoms)? @ -Complicated Side effects of treatment? @ -None Exacerbation, Progression, or Severe Exacerbation] @ -No Poses a threat to life or bodily function? @ -No Diagnosis/symptom? @ -Elevated troponin Acute, or Chronic, or Acute on Chronic? @ -Acute Uncomplicated (without systemic symptoms) or Complicated (systemic symptoms)? @ -Complicated Side effects of treatment? @ -None Exacerbation, Progression, or Severe Exacerbation] @ -No Poses a threat to life or bodily function? @ -Yes this could be a precursor to an PA which could lead to endorgan dysfunc tion (Lloyd Coreas) Patient admitted to [facility] however due to borderline hypotension at time of admission patient was also signed out to myself for further monitoring. On repe at assessment patient's blood pressure was 64/44 despite 3 L of IV fluids. Contacted [facility], Dr. Reed to discuss further. Agrees with Solu-Cortef administration, admission to ICU. Will start Levophed. Additionally D-dimer was 5.7. I discussed with Dr. Reed, due to patient's elevated creatinine he would like to forego CT PE study at this point and prefers VQ scan. Patient received Solu-Cortef, was removing BiPAP for patient comfort for an hour however shortness of breath developed again, placed back on BiPAP. 1 hour after receiving Solu-Cortef, blood pressure 105/57. Has not yet started Levophed. If pressure continues to improve will hold off on levophed, however if hypotensive will place central line. 21:49: I went to reassess patient and blood pressure 79/44. He does have increa sed work of breathing on BiPAP however is not in any distress at this point. At this point we will work on placing central line. I discussed with patient and his daughter Dasia risk and benefits of line placement. They were agreeable with plan. Patient moved to a room closer to the front of the ER for closer monitoring. After moving to room 1, patient continued to have increased work of breathing on Bipap. He was reaching for his bipap mask and attempting to remove it, appearing increasingly anxious. Patient continued to have increased work of breathing and appeared to be becoming more tired as well. I discussed with patient and daughter that I was concerned that if he would continue to work hard too breath and continue to become more confused and tired, and that we should consider i ntubation to prevent respiratory failure. Patient and daughter ultimately agreeable with intubation however patient did not want compressions/resuscitation if he lost pulses during intubation. Dr. Reed, hospitalist, was contacted regarding plan for intubation. Patient was started on levophed prior to intubation. Patient moved to trauma bay. Patient intubated uneventfully, please see procedure note for further details. After intubation, CVC was placed. [facility], came to bedside to further assess and assume care of patient. Patient transferred to ICU. Critical Care time was performed: 60 minutes, spent exclusive of separately billable procedures, spent reassessing patient, ordering treatments and interventions, interpretation of labs and imaging, discussions with patient's family, discussion with admitting physician and critical care physician (Hilda Orona) - Lab Data Lab Results 11/30/23 11/30/23 11/30/23 Range/Units 14:52 14:52 14:52 WBC (3.8-10.6) k/uL RBC (4.30-5.90) m/uL Hgb (13.0-17.5) gm/dL Hct (39.0-53.0) % MCV (80.0-100.0) fL MCH (25.0-35.0) pg MCHC (31.0-37.0) g/dL RDW (11.5-15.5) % Plt Count (150-450) k/uL MPV Neutrophils % (Manual) % Band Neuts % (Manual) % Lymphocytes % (Manual) % Eosinophils % (Manual) % Metamyelocytes % % Neutrophils # (Manual) (1.3-7.7) k/uL Lymphocytes # (Manual) (1.0-4.8) k/uL Eosinophils # (Manual) (0-0.7) k/uL Metamyelocytes # (Man) (0) k/uL Nucleated RBCs (0-0) /100 WBC Manual Slide Review Hypochromasia INFECTION CONTROL PREVENTIONIST Anisocytosis INFECTION CONTROL PREVENTIONIST PT (10.0-12.5) sec INR (<1.2) APTT (22.0-30.0) sec D-Dimer (<0.60) mg/L FEU Sodium 131 L (137-145) mmol/L Potassium 4.1 (3.5-5.1) mmol/L Chloride 102 (98-107) mmol/L Carbon Dioxide 26 (22-30) mmol/L Anion Gap 3 mmol/L BUN 33 H (9-20) mg/dL Creatinine 1.55 H (0.66-1.25) mg/dL Est GFR (CKD-EPI)AfAm 49 (>60 ml/min/1.73 sqM) Est GFR (CKD-EPI)NonAf 43 (>60 ml/min/1.73 sqM) Glucose 130 H (74-99) mg/dL Plasma Lactic Acid Jakub 3.3 H* (0.7-2.0) mmol/L Calcium 8.6 (8.4-10.2) mg/dL Total Bilirubin 0.6 (0.2-1.3) mg/dL AST 40 (17-59) U/L ALT 54 H (4-49) U/L Alkaline Phosphatase 65 (38-126) U/L Troponin I (0.000-0.034) ng/mL Total Protein 5.2 L (6.3-8.2) g/dL Albumin 3.1 L (3.5-5.0) g/dL 11/30/23 11/30/23 11/30/23 Range/Units 14:52 15:41 15:41 WBC (3.8-10.6) k/uL RBC (4.30-5.90) m/uL Hgb (13.0-17.5) gm/dL Hct (39.0-53.0) % MCV (80.0-100.0) fL MCH (25.0-35.0) pg MCHC (31.0-37.0) g/dL RDW (11.5-15.5) % Plt Count (150-450) k/uL MPV Neutrophils % (Manual) % Band Neuts % (Manual) % Lymphocytes % (Manual) % Eosinophils % (Manual) % Metamyelocytes % % Neutrophils # (Manual) (1.3-7.7) k/uL Lymphocytes # (Manual) (1.0-4.8) k/uL Eosinophils # (Manual) (0-0.7) k/uL Metamyelocytes # (Man) (0) k/uL Nucleated RBCs (0-0) /100 WBC Manual Slide Review Hypochromasia Anisocytosis PT 11.0 (10.0-12.5) sec INR 1.0 (<1.2) APTT 22.3 (22.0-30.0) sec D-Dimer 5.70 H (<0.60) mg/L FEU Sodium (137-145) mmol/L Potassium (3.5-5.1) mmol/L Chloride (98-107) mmol/L Carbon Dioxide (22-30) mmol/L Anion Gap mmol/L BUN (9-20) mg/dL Creatinine (0.66-1.25) mg/dL Est GFR (CKD-EPI)AfAm (>60 ml/min/1.73 sqM) Est GFR (CKD-EPI)NonAf (>60 ml/min/1.73 sqM) Glucose (74-99) mg/dL Plasma Lactic Acid Jakub (0.7-2.0) mmol/L Calcium (8.4-10.2) mg/dL Total Bilirubin (0.2-1.3) mg/dL AST (17-59) U/L ALT (4-49) U/L Alkaline Phosphatase (38-126) U/L Troponin I 0.141 H* (0.000-0.034) ng/mL Total Protein (6.3-8.2) g/dL Albumin (3.5-5.0) g/dL 11/30/23 Range/Units 15:48 WBC 6.8 (3.8-10.6) k/uL RBC 3.71 L (4.30-5.90) m/uL Hgb 10.5 L (13.0-17.5) gm/dL Hct 33.1 L (39.0-53.0) % MCV 89.1 (80.0-100.0) fL MCH 28.2 (25.0-35.0) pg MCHC 31.7 (31.0-37.0) g/dL RDW 17.8 H (11.5-15.5) % Plt Count 171 (150-450) k/uL MPV 8.1 Neutrophils % (Manual) 89 % Band Neuts % (Manual) 3 % Lymphocytes % (Manual) 8 % Eosinophils % (Manual) 1 % Metamyelocytes % 1 % Neutrophils # (Manual) 6.20 (1.3-7.7) k/uL Lymphocytes # (Manual) 0.54 L (1.0-4.8) k/uL Eosinophils # (Manual) 0.07 (0-0.7) k/uL Metamyelocytes # (Man) 0.07 H (0) k/uL Nucleated RBCs 5 H (0-0) /100 WBC Manual Slide Review Performed Hypochromasia Moderate Anisocytosis Slight PT (10.0-12.5) sec INR (<1.2) APTT (22.0-30.0) sec D-Dimer (<0.60) mg/L FEU Sodium (137-145) mmol/L Potassium (3.5-5.1) mmol/L Chloride (98-107) mmol/L Carbon Dioxide (22-30) mmol/L Anion Gap mmol/L BUN (9-20) mg/dL Creatinine (0.66-1.25) mg/dL Est GFR (CKD-EPI)AfAm (>60 ml/min/1.73 sqM) Est GFR (CKD-EPI)NonAf (>60 ml/min/1.73 sqM) Glucose (74-99) mg/dL Plasma Lactic Acid Jakub (0.7-2.0) mmol/L Calcium (8.4-10.2) mg/dL Total Bilirubin (0.2-1.3) mg/dL AST (17-59) U/L ALT (4-49) U/L Alkaline Phosphatase (38-126) U/L Troponin I (0.000-0.034) ng/mL Total Protein (6.3-8.2) g/dL Albumin (3.5-5.0) g/dL Critical Care Time Critical Care Time: Yes Total Critical Care Time: 60 <Hilda Orona - Last Filed: 12/30/23 19:29> Critical Care Time: 60 minutes (Hilda Orona) Disposition Time of Disposition: 16:39 <Lloyd Coreas - Last Filed: 11/30/23 16:37> <Hilda Orona - Last Filed: 12/30/23 19:29> Clinical Impression: Pneumonia, Renal insufficiency, Elevated troponin Disposition: ADMITTED IP TO THIS HOSP
[2023-11-30] MEDS: SODIUM CHLORIDE 0.9% 500 ML 500 ML IV ONE ×4 (14:53→23:21)
[2023-11-30] MEDS: SODIUM CHLORIDE 0.9% 500 ML 500 ML IV SCH (14:54)
[2023-11-30] MEDS: cefTRIAXone IN SWFI 1,000 MG/10 ML SYRINGE IVP STA ×2 (14:56→14:57)
[2023-11-30] MEDS: IBUPROFEN 600 MG TAB PO STA (14:57)
[2023-11-30] MEDS: ACETAMINOPHEN TAB 500 MG TAB PO STA (14:57)
--- NOTE | 2023-11-30 15:13 | XR ---
EXAMINATION TYPE: XR chest 2V DATE OF EXAM: 11/30/2023 3:07 PM CLINICAL INDICATION:Male, 78 years old with history of Fever; [facility] COMPARISON: Chest radiographs from 11/26/2023 TECHNIQUE: XR chest 2V Frontal and lateral views of the chest. FINDINGS: Lungs/Pleura: Hazy airspace opacity within the right lung base. No evidence of pneumothorax. Pulmonary vascularity: Unremarkable. Heart/mediastinum: Cardiomediastinal silhouette is unremarkable. Musculoskeletal: No acute osseous pathology. IMPRESSION: Findings concerning for right lung base pneumonia.
[2023-11-30 15:48] LABS: ALT 54 U/L (4-49); AST 40 U/L (17-59); African American GFR (CKD) 49 (>60 ml/min/1.73 sqM); Albumin 3.1 g/dL (3.5-5.0); Alkaline Phosphatase 65 U/L (38-126); Anion Gap 3 mmol/L; Blood Urea Nitrogen 33 mg/dL (9-20); Calcium 8.6 mg/dL (8.4-10.2); Carbon Dioxide 26 mmol/L (22-30); Chloride 102 mmol/L (98-107); Glucose 130 mg/dL (74-99); Non-African American GFR(CKD) 43 (>60 ml/min/1.73 sqM); Potassium 4.1 mmol/L (3.5-5.1); Sodium 131 mmol/L (137-145); Total Bilirubin 0.6 mg/dL (0.2-1.3); Total Protein 5.2 g/dL (6.3-8.2)
[2023-11-30 16:03] LABS: Anisocytosis Slight; HCT 33.1 % (39.0-53.0); Hypochromasia Moderate; MCH 28.2 pg (25.0-35.0); MCHC 31.7 g/dL (31.0-37.0); MCV 89.1 fL (80.0-100.0); Mean Platelet Volume 8.1; RBC 3.71 m/uL (4.30-5.90); RDW 17.8 % (11.5-15.5)
[2023-11-30 16:06] LABS: HGB 10.5 gm/dL (13.0-17.5)
[2023-11-30 16:13] LABS: Platelet Count 171 k/uL (150-450)
[2023-11-30] MEDS: IPRATROPIUM-ALBUTEROL 3 ML NEB INHALATION STA (16:24)
[2023-11-30 16:28] LABS: Partial Thromboplastin Time 22.3 sec (22.0-30.0)
[2023-11-30] MEDS ORDERED: PNEUMONIA PROTOCOL UTILIZED 1 EACH MISC PO PRN (16:40)
[2023-11-30] MEDS ORDERED: tiZANidine 4 MG TAB PO PRN (16:42)
[2023-11-30] MEDS ORDERED: ZOLPIDEM 5 MG TAB PO PRN (16:42)
[2023-11-30 16:55] LABS: Band Neutrophils % 3 %; Eosinophils # (M) 0.07 k/uL (0-0.7); Metamyelocytes # (M) 0.07 k/uL (0); Metamyelocytes % 1 %; Neutrophils % (M) 89 %; Nucleated Red Blood Cells 5 /100 WBC (0-0); Total Cells Counted 200
[2023-11-30] MEDS: LORazepam 2 MG/ML INJ IV STA (16:56)
[2023-11-30 17:26] LABS: Lymphocytes # (M) 0.54 k/uL (1.0-4.8); WBC 6.8 k/uL (3.8-10.6)
--- NOTE | 2023-11-30 19:20 | P.HPIM ---
History of Present Illness H&P Date: 11/30/23 Chief Complaint: Chest pain/shortness of breath 78-year-old male, history of hypertension, hyperlipidemia, diabetes mellitus, COPD, coronary artery disease/history of SD, chronic hypoxic respiratory failure requiring BiPAP, who presents to the emergency department stating that he had about 10 minutes of chest pain earlier today and some shortness of breath. Patient states the chest pain is gone but he continued having shortness of breath. Patient states she was just in the hospital yesterday and was discharged home. Patient states she does not know exactly what they found when they were here. Patient states he also had a fever of 101 degrees at home. Patient does complain of a cough but denies any significant sputum production. Patient denies any abdominal pain patient has any nausea vomiting. Patient has any back pain. Blood work reveals WBC of 7.1, hemoglobin of 10.5 and platelet count of 171, sodium 131, potassium 4.1, BUNs/creatinine of 33/1.55 and blood glucose of 130, troponin elevated at 0.141 Chest x-ray reveals right lower lobe pneumonia Review of Systems REVIEW OF SYSTEMS: CONSTITUTIONAL: No fever, no malaise, no fatigue. HEENT: No recent visual problems or hearing problems. Denied any sore throat. CARDIOVASCULAR: No chest pain, orthopnea, PND, no palpitations, no syncope. PULMONARY: No shortness of breath, no cough, no hemoptysis. GASTROINTESTINAL: No diarrhea, no nausea, no vomiting, no abdominal pain. NEUROLOGICAL: No headaches, no weakness, no numbness. HEMATOLOGICAL: Denies any bleeding or petechiae. GENITOURINARY: Denies any burning micturition, frequency, or urgency. MUSCULOSKELETAL/RHEUMATOLOGICAL: Denies any joint pain, swelling, or any muscle pain. ENDOCRINE: Denies any polyuria or polydipsia. The rest of the 14-point review of systems is negative. Past Medical History Past Medical History: Chest Pain / Angina, COPD, Diabetes Mellitus, Hyperlipidemia, Myocardial Infarction (SD), Osteoarthritis (OA), Pneumonia, Prostate Disorder, Supraventricular Tachycardia (SVT) Additional Past Medical History / Comment(s): Chronic hypoxic respiratory failure with home oxygen pt mostly just wears at night, past acute hypoxic respiratory failure requiring bipap, newly diagnosed NIDDM type II, BPH, UTI Last Myocardial Infarction Date:: 2008 History of Any Multi-Drug Resistant Organisms: None Reported Past Surgical History: Back Surgery, Heart Catheterization, Hernia Repair, Joint Replacement, Orthopedic Surgery Additional Past Surgical History / Comment(s): microlaryngoscopy w/ lt vocal cord bx-neg, bronch-lung bx-neg, lt inguinal hernia, low back surgery, bilateral total hip arthroplasties, bilateral cataracts removed. Past Anesthesia/Blood Transfusion Reactions: No Reported Reaction Past Psychological History: No Psychological Hx Reported Smoking Status: Former smoker Past Alcohol Use History: Occasional Past Drug Use History: None Reported - Past Family History Mother Family Medical History: COPD, Diabetes Mellitus Father Family Medical History: COPD, Diabetes Mellitus Brother(s) Family Medical History: Cancer Additional Family Medical History / Comment(s): leukemia Medications and Allergies Home Medications Medication Instructions Recorded Confirmed Type Aspirin 81 mg PO DAILY 07/17/16 11/30/23 History Budesonide-Formot 160-4.5 Mcg 2 puff INHALATION RT-BID 07/17/16 11/30/23 History [Symbicort 160-4.5 Mcg Inhaler] Albuterol Sulfate [Albuterol 2 puff PO RT-Q4H PRN 04/13/23 11/30/23 History Sulfate Hfa] predniSONE 10 mg PO DAILY 8 Days #20 tab 06/10/23 11/30/23 Rx Cetirizine HCl [Zyrtec] 10 mg PO DAILY 11/26/23 11/30/23 History Empagliflozin [Jardiance] 10 mg PO DAILY 11/26/23 11/30/23 History Famotidine [Pepcid] 20 mg PO BID 11/26/23 11/30/23 History Ipratropium-Albuterol Nebulize 3 ml INHALATION RT-Q4H 11/26/23 11/30/23 History [Duoneb 0.5 mg-3 mg/3 ml Soln] Montelukast [Singulair] 10 mg PO DAILY 11/26/23 11/30/23 History Multivit-Mins/Iron/Folic/Lycop 1 tab PO DAILY 11/26/23 11/30/23 History [Centrum Men's Tablet] Nicotine 21Mg/24Hr Patch [Habitrol] 1 patch TRANSDERM DAILY PRN 11/26/23 11/30/23 History Tamsulosin [Flomax] 0.4 mg PO DAILY 11/26/23 11/30/23 History Zolpidem [Ambien] 5 mg PO HS PRN 11/26/23 11/30/23 History buPROPion HCL [buPROPion HCL SR] 100 mg PO DAILY 11/26/23 11/30/23 History metFORMIN HCL 500 mg PO BID 11/26/23 11/30/23 History tiZANidine [Zanaflex] 4 mg PO DAILY PRN 11/26/23 11/30/23 History Atorvastatin [Lipitor] 40 mg PO DAILY #30 tab 11/29/23 11/30/23 Rx Metoprolol Tartrate [Lopressor] 25 mg PO BID #60 tab 11/29/23 11/30/23 Rx Allergies Allergy/AdvReac Type Severity Reaction Status Date / Time Penicillins Allergy Rash/Hives Verified 11/26/23 09:43 Physical Exam Vitals: Vital Signs Temp Pulse Resp BP Pulse Ox FiO2 11/30/23 16:56 40 11/30/23 16:38 75 11/30/23 16:25 64 11/30/23 13:21 100.1 F H 107 H 22 93/61 98 Intake and Output 11/30/23 11/30/23 11/30/23 06:59 14:59 22:59 Other: Weight 79.379 kg GENERAL: Patient is well-developed and well-nourished. Patient is nontoxic and well- hydrated and is in mild distress. ENT:Neck is soft and supple. No significant lymphadenopathy is noted. Oropharynx is clear. Moist mucous membranes. Neck has full range of motion without eliciting any pain. EYES:The sclera were anicteric and conjunctiva were pink and moist. Extraocular movements were intact and pupils were equal round and reactive to light. Eyelids were unremarkable. PULMONARY:Unlabored respirations. Good breath sounds bilaterally. No audible rales rhonchi or wheezing was noted. CARDIOVASCULAR:There is a regular rate and rhythm without any murmurs gallops or rubs. ABDOMEN:Soft and nontender with normal bowel sounds. SKIN:Skin is clear with no lesions or rashes and otherwise unremarkable. NEUROLOGIC:Patient is alert and oriented x3. Cranial nerves II through XII are grossly intact. Motor and sensory are also intact. Normal speech, volume and content. Symmetrical smile. MUSCULOSKELETAL:Normal extremities with adequate strength and full range of motion. PSYCHIATRIC:Normal psychiatric evaluation. Results CBC & Chem 7: 11/30/23 15:48 11/30/23 14:52 Labs: Abnormal Lab Results - Last 24 Hours (Table) 11/30/23 11/30/23 11/30/23 Range/Units 14:52 14:52 14:52 RBC (4.30-5.90) m/uL Hgb (13.0-17.5) gm/dL Hct (39.0-53.0) % RDW (11.5-15.5) % Sodium 131 L (137-145) mmol/L BUN 33 H (9-20) mg/dL Creatinine 1.55 H (0.66-1.25) mg/dL Glucose 130 H (74-99) mg/dL Plasma Lactic Acid Jakub 3.3 H* (0.7-2.0) mmol/L ALT 54 H (4-49) U/L Troponin I 0.141 H* (0.000-0.034) ng/mL Total Protein 5.2 L (6.3-8.2) g/dL Albumin 3.1 L (3.5-5.0) g/dL 11/30/23 Range/Units 15:48 RBC 3.71 L (4.30-5.90) m/uL Hgb 10.5 L (13.0-17.5) gm/dL Hct 33.1 L (39.0-53.0) % RDW 17.8 H (11.5-15.5) % Sodium (137-145) mmol/L BUN (9-20) mg/dL Creatinine (0.66-1.25) mg/dL Glucose (74-99) mg/dL Plasma Lactic Acid Jakub (0.7-2.0) mmol/L ALT (4-49) U/L Troponin I (0.000-0.034) ng/mL Total Protein (6.3-8.2) g/dL Albumin (3.5-5.0) g/dL Assessment and Plan Assessment: 1. Chest pain/elevated troponin; possible NSTEMI -Troponin is elevated at 0.141 with second set of troponin trending up to 0.207 -We will start patient on IV heparin per protocol Patient remains on aspirin, statins, and beta-blockers -Consult cardiology 2. Community-acquired pneumonia -Chest x-ray reveals right lower lobe pneumonia; white blood count is 6.8 but lactic acid is elevated at 3.3 -Patient has been placed on IV Rocephin and azithromycin; bronchodilator nebulizer treatments -Blood cultures and sputum culture -Pulmonary consult in place 3. Elevated D-dimer; patient reporting shortness of breath and hypoxia; given elevated BUN/creatinine, we will hold off on CT of the chest; patient has been placed on IV heparin; will order VQ scan 3. Acute renal injury/dehydration; received IV fluid bolus in ED; will add half-normal saline at rate of 75 cc an hour; monitor strict PIA's, daily weights, renal function electrolytes; avoid nephrotoxins and hypotension 4. Hypertension; metoprolol 25 mg twice daily 5. Hyperlipidemia; Lipitor 40 mg p.o. daily 6. Diabetes mellitus type 2; patient takes Jardiance and metformin at home which will be continued; monitor Accu-Cheks before every meal and at bedtime with insulin sliding scale 7. COPD; in exacerbation; new with home inhaler therapy DVT prophylaxis; SCDs/IV heparin CODE STATUS; full code
[2023-11-30 19:38] LABS: ABG Base Excess -5.5 mmol/L; ABG HCO3 20 mmol/L (21-25); ABG Oxygen Saturation 98.7 % (94-97); ABG PCO2 36 mmHg (35-45); ABG PH 7.35 (7.35-7.45); ABG PO2 118 mmHg (83-108); ABG TCO2 21 mmol/L (19-24); Allen Test Performed? Yes
[2023-11-30] MEDS: ALBUTEROL NEBULIZED 2.5 MG/3 ML INHALATION SCH (19:55)
[2023-11-30] MEDS: AZITHROMYCIN 500 MG in SODIUM CHLORIDE 0.9% 250 ML IVPB STA (19:59)
[2023-11-30] MEDS: SYMBICORT 160-4.5 MCG INHALER INHALATION SCH (20:11)
[2023-11-30] MEDS: HYDROCORTISONE 20 MG TAB PO STA ×2 (20:24→22:13)
[2023-11-30] MEDS: MIDAZOLAM 2 MG/2 ML VIAL IV ONE (21:57)
[2023-11-30] MEDS: NOREPINEPHRINE 4 MG in SODIUM CHLORIDE 0.9% 250 ML IV SCH (22:03)
[2023-11-30] MEDS: FAMOTIDINE 20 MG TAB PO SCH (22:04)
[2023-11-30] MEDS: METOPROLOL TARTRATE 25 MG TAB PO SCH (22:04)
[2023-11-30] MEDS: metFORMIN 500 MG TAB PO SCH (22:04)
[2023-11-30] MEDS: fentaNYL (PF) 50 MCG/ML 2 ML AMP IVP ONE ×2 (22:11→22:46)
[2023-11-30] MEDS: SODIUM CHLORIDE 0.9% 1,000 ML IV ONE (22:13)
[2023-11-30] MEDS: HEPARIN SOD,PORK IN 0.45% NACL 25,000 UNIT in 0.45% NACL 1 250ML.BAG IV SCH (22:18)
[2023-11-30] MEDS: HEPARIN SODIUM 1,000 UN/ML (10ML VL) IV ONE (22:21)
[2023-11-30] MEDS: KETAMINE 10 MG/ML 20 ML VIAL IV ONE (22:39)
[2023-11-30] MEDS: SUCCINYLCHOLINE CHLORIDE 200 MG/10 ML VIAL IV STA (22:39)
[2023-11-30] MEDS: SODIUM CHLORIDE 0.9% 80 ML with fentaNYL (PF) 1,000 MCG IV SCH (22:54)
[2023-11-30] MEDS: NOREPINEPHRINE 32 MG in SODIUM CHLORIDE 0.9% 218 ML IV SCH (23:30)
[2023-11-30 23:44] LABS: ABG Base Excess -9.6 mmol/L; ABG HCO3 19 mmol/L (21-25); ABG Oxygen Saturation 99.8 % (94-97); ABG PCO2 56 mmHg (35-45); ABG PO2 362 mmHg (83-108); ABG TCO2 21 mmol/L (19-24); Allen Test Performed? Yes
[2023-11-30 23:50] LABS: ABG PH 7.15 (7.35-7.45)
[2023-12-01 01:08] LABS: ABG Base Excess -9.3 mmol/L; ABG HCO3 18 mmol/L (21-25); ABG PCO2 41 mmHg (35-45); ABG PH 7.24 (7.35-7.45); ABG PO2 119 mmHg (83-108); ABG TCO2 19 mmol/L (19-24); Allen Test Performed? Yes
[2023-12-01] MEDS: IPRATROPIUM-ALBUTEROL 3 ML NEB INHALATION SCH (01:18)
[2023-12-01] MEDS ORDERED: VANCOMYCIN IV PER PHARMACY 1 EACH MISC MISCELLANE PRN (01:33)
[2023-12-01] MEDS: DEXTROSE 5% IN WATER 1,000 ML with SODIUM BICARB (1 MEQ/ML) 150 ML IV SCH (01:42)
--- NOTE | 2023-12-01 01:52 | XR ---
EXAM: XR Chest, 1 View CLINICAL HISTORY: ITS.REASON XR Reason: intubation TECHNIQUE: Frontal view of the chest. COMPARISON: No relevant prior studies available. IMPRESSION: NG tube side-port is near the diaphragm. Recommend advancing 5 cm. Cardiomegaly. Mild vascular congestion. ET tube in good position.
[2023-12-01] MEDS ORDERED: VASOPRESSIN 60 UNIT in SODIUM CHLORIDE 0.9% 150 ML IV SCH (02:00)
[2023-12-01] MEDS: CEFEPIME 2 GM in SODIUM CHLORIDE 0.9% 100 ML IVPB SCH (02:15)
[2023-12-01 02:39] LABS: Anisocytosis Slight; Basophils % (A) 0 %; Eosinophils # (A) 0.1 k/uL (0-0.7); Eosinophils % (A) 1 %; HGB 11.6 gm/dL (13.0-17.5); Hypochromasia Marked; Lymphocytes # (A) 0.2 k/uL (1.0-4.8); Lymphocytes % (A) 1 %; MCH 28.4 pg (25.0-35.0); MCHC 31.4 g/dL (31.0-37.0); MCV 90.3 fL (80.0-100.0); Mean Platelet Volume 8.6; Monocytes # (A) 0.3 k/uL (0-1.0); Monocytes % (A) 2 %; Neutrophils # (A) 13.3 k/uL (1.3-7.7); Neutrophils % (A) 96 %; Platelet Count 242 k/uL (150-450); RDW 17.8 % (11.5-15.5); WBC 13.9 k/uL (3.8-10.6)
[2023-12-01] MEDS ORDERED: DEXTROSE 50% SYRINGE 50 ML IVP PRN ×2 (02:54)
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
[2023-12-01 03:07] LABS: African American GFR (CKD) 42 (>60 ml/min/1.73 sqM); Anion Gap 7 mmol/L; Blood Urea Nitrogen 36 mg/dL (9-20); Calcium 7.3 mg/dL (8.4-10.2); Carbon Dioxide 15 mmol/L (22-30); Chloride 108 mmol/L (98-107); Glucose 178 mg/dL (74-99); Non-African American GFR(CKD) 36 (>60 ml/min/1.73 sqM); Potassium 5.5 mmol/L (3.5-5.1); Sodium 130 mmol/L (137-145)
[2023-12-01 03:32] LABS: Glucose,Whole Blood 213 mg/dL (70-110)
[2023-12-01] MEDS ORDERED: Magnesium Replacement Protocol 1 EACH MISC MISCELLANE PRN (03:44)
[2023-12-01] MEDS ORDERED: NALOXONE 0.4 MG/ML 1 ML VIAL IV PRN (03:44)
[2023-12-01] MEDS ORDERED: Potassium Replacement Protocol 1 EACH MISC MISCELLANE PRN (03:44)
--- NOTE | 2023-12-01 05:02 | P.PCN ---
Date of Procedure: 12/01/23 Preoperative Diagnosis: Hypotension and shock Postoperative Diagnosis: Hypotension and shock Procedure(s) Performed: Insertion of a left wrist radial arterial line Indications for Procedure: Continuous blood pressure monitoring and frequent blood draws Description of Procedure: Informed consent was obtained, and a procedural timeout was performed . The patient was placed in supine position. The left radial region was prepared in a sterile fashion, and a sterile drape was applied. The left radial artery was palpated, easily cannulated, and a guidewire was placed. A Cook catheter was inserted over the guidewire, and the guidewire was removed. There was good arterial blood flow, good arterial waveform, and no complications. The line was secured with using a 3-0 silk suture.
[2023-12-01 05:19] LABS: ABG Base Excess -6.5 mmol/L; ABG HCO3 20 mmol/L (21-25); ABG Oxygen Saturation 96.7 % (94-97); ABG PCO2 40 mmHg (35-45); ABG PO2 105 mmHg (83-108); ABG TCO2 21 mmol/L (19-24)
[2023-12-01 05:55] VITALS: RESP 22; TEMP 98.5
[2023-12-01 06:08] VITALS: BP 133/80
[2023-12-01] MEDS: INSULIN ASPART (NovoLOG) 100 UNIT/ML VIAL SQ SCH (06:36)
[2023-12-01] MEDS: VANCOMYCIN 1,750 MG in SODIUM CHLORIDE 0.9% 500 ML 500 ML IVPB ONE (06:40)
[2023-12-01] MEDS: methylPREDNISolone SOD SUCCI 125 MG/2 ML VIAL IV SCH (06:41)
[2023-12-01 07:33] VITALS: PULSE 67
[2023-12-01] MEDS ORDERED: FORMOTEROL FUMARATE 20 MCG/2 ML NEBU INHALATION SCH (08:00)
[2023-12-01] MEDS ORDERED: BUDESONIDE 1 MG/2 ML NEBU INHALATION SCH (08:00)
[2023-12-01] MEDS ORDERED: ASPIRIN 81 MG ONE (08:52)
[2023-12-01] MEDS ORDERED: ATORVASTATIN 40 MG TAB ONE (08:52)
[2023-12-01] MEDS ORDERED: CHLORHEXIDINE GLUCONATE 15 ML CUP MUCOUS MEM ONE ×2 (08:52→21:18)
[2023-12-01] MEDS ORDERED: MULTIVITAMINS, THERA 1 EACH TAB ONE (08:52)
[2023-12-01] MEDS ORDERED: DAPAGLIFLOZIN PROPANEDIOL 5 MG TABLET ONE (08:52)
[2023-12-01] MEDS ORDERED: CEFEPIME 2 GM VIAL IVPB ONE ×2 (08:53→17:02)
[2023-12-01] MEDS ORDERED: LORATADINE 10 MG TAB ONE (08:53)
[2023-12-01] MEDS ORDERED: SODIUM CHLORIDE 0.9% 100 ML ONE ×2 (08:53→17:02)
[2023-12-01] MEDS ORDERED: FAMOTIDINE 20 MG TAB ONE (08:53)
[2023-12-01] MEDS ORDERED: CHLORHEXIDINE GLUCONATE 15 ML CUP MUCOUS MEM SCH (09:00)
[2023-12-01] MEDS ORDERED: PANTOPRAZOLE 40 MG/10 ML VIAL IVP SCH (09:00)
[2023-12-01] MEDS ORDERED: LORATADINE 10 MG TAB PO SCH (09:00)
[2023-12-01] MEDS ORDERED: ASPIRIN 81 MG PO SCH (09:00)
[2023-12-01] MEDS ORDERED: FAMOTIDINE 20 MG TAB PO SCH (09:00)
[2023-12-01] MEDS ORDERED: DAPAGLIFLOZIN PROPANEDIOL 5 MG TABLET PO SCH (09:00)
[2023-12-01] MEDS ORDERED: predniSONE 10 MG TAB PO SCH (09:00)
[2023-12-01] MEDS ORDERED: buPROPion SR 100 MG TABLET.ER PO SCH (09:00)
[2023-12-01] MEDS ORDERED: ATORVASTATIN 40 MG TAB PO SCH (09:00)
[2023-12-01] MEDS ORDERED: MULTIVITAMINS THERA PO SCH (09:00)
[2023-12-01 09:14] LABS: Glucose,Whole Blood 261 mg/dL (70-110)
[2023-12-01] MEDS ORDERED: PANTOPRAZOLE 40 MG/10 ML VIAL ONE (09:43)
[2023-12-01 09:53] LABS: Appearance,Urine Clear (Clear); Bacteria,Urine Occasional /hpf; Bilirubin,Urine Negative (Negative); Blood,Urine Trace (Negative); Color,Urine Colorless; Glucose,Urine (UA) 3+ (Negative); Ketones,Urine Negative (Negative); Leukocyte Esterase,Urine Negative (Negative); Mucus,Urine Rare /hpf; Nitrite,Urine Negative (Negative); PH, Urine 5.5 (5.0-8.0); Protein,Urine Negative (Negative); RBC,Urine <1 /hpf (0-5); Specific Gravity,Urine 1.007 (1.001-1.035); Urobilinogen,Urine <2.0 mg/dL (<2.0); WBC,Urine 2 /hpf (0-5)
[2023-12-01] MEDS ORDERED: INSULIN ASPART (NovoLOG) 100 UNIT/ML VIAL SQ ONE ×3 (10:14→21:19)
[2023-12-01] MEDS ORDERED: propofoL 100 ML IV ONE ×4 (10:23→22:14)
[2023-12-01] MEDS ORDERED: EMPTY BAG 1 BAG ONE ×4 (10:23→22:14)
[2023-12-01 12:00] LABS: Glucose,Whole Blood 341 mg/dL (70-110)
[2023-12-01] MEDS ORDERED: methylPREDNISolone SOD SUCCI 125 MG/2 ML VIAL ONE ×2 (12:08→17:02)
[2023-12-01] MEDS ORDERED: WATER FOR INJECTION, STERILE 10 ML IV ONE (12:54)
--- NOTE | 2023-12-01 13:38 | XR ---
EXAM: XR Chest, 1 View CLINICAL HISTORY: ITS. REASON XR Reason: OG tube placement TECHNIQUE: Frontal view of the chest. COMPARISON: 11/30/23 FINDINGS/impression: The tip of the enteric tube is excluded inferiorly. Consider upper abdominal radiograph to better assess. Appropriately positioned endotracheal tube, tip projecting approximately 4 cm above the mile. Left IJ central venous catheter, tip in the upper SVC. Stable bibasilar pleural-parenchymal opacities
[2023-12-01 15:31] LABS: Glucose,Whole Blood 294 mg/dL (70-110)
[2023-12-01] MEDS ORDERED: IPRATROPIUM-ALBUTEROL 3 ML NEB ONE (19:44)
[2023-12-01] MEDS ORDERED: BUDESONIDE 1 MG/2 ML NEBU INHALATION ONE (19:44)
[2023-12-01] MEDS ORDERED: FORMOTEROL FUMARATE 20 MCG/2 ML NEBU INHALATION ONE (19:44)
[2023-12-01 21:08] LABS: Glucose,Whole Blood 302 mg/dL (70-110)
[2023-12-01] MEDS ORDERED: SODIUM CHLORIDE 0.9% 100 ML BAG IV ONE (23:59)
[2023-12-01] MEDS ORDERED: buPROPion SR 100 MG TABLET.ER PO ONE (23:59)
[2023-12-01] MEDS ORDERED: SODIUM BICARB 8.4% 50 ML VIAL (1 MEQ/ML) ONE (23:59)
[2023-12-02] MEDS ORDERED: EMPTY BAG 1 BAG ONE ×6 (01:40→19:55)
[2023-12-02] MEDS ORDERED: methylPREDNISolone SOD SUCCI 125 MG/2 ML VIAL ONE ×5 (01:40→23:17)
[2023-12-02] MEDS ORDERED: propofoL 100 ML IV ONE ×6 (01:40→19:55)
[2023-12-02] MEDS ORDERED: HEPARIN SOD,PORK IN 0.45% NACL 250 ML IV ONE (01:57)
[2023-12-02] MEDS ORDERED: NACL ONE (01:57)
[2023-12-02 06:06] LABS: Glucose,Whole Blood 328 mg/dL (70-110)
[2023-12-02] MEDS ORDERED: INSULIN ASPART (NovoLOG) 100 UNIT/ML VIAL SQ ONE ×4 (06:07→23:38)
[2023-12-02] MEDS ORDERED: BUDESONIDE 1 MG/2 ML NEBU INHALATION ONE ×2 (07:49→19:58)
[2023-12-02] MEDS ORDERED: IPRATROPIUM-ALBUTEROL 3 ML NEB ONE ×2 (07:49→19:58)
[2023-12-02] MEDS ORDERED: FORMOTEROL FUMARATE 20 MCG/2 ML NEBU INHALATION ONE ×2 (07:49→19:58)
[2023-12-02] MEDS ORDERED: MULTIVITAMINS, THERA 1 EACH TAB ONE (11:36)
[2023-12-02] MEDS ORDERED: ATORVASTATIN 40 MG TAB ONE (11:36)
[2023-12-02] MEDS ORDERED: CHLORHEXIDINE GLUCONATE 15 ML CUP MUCOUS MEM ONE ×2 (11:36→22:27)
[2023-12-02] MEDS ORDERED: PANTOPRAZOLE 40 MG/10 ML VIAL ONE (11:36)
[2023-12-02] MEDS ORDERED: DAPAGLIFLOZIN PROPANEDIOL 5 MG TABLET ONE (11:37)
[2023-12-02] MEDS ORDERED: POTASSIUM BICARBONATE/CIT AC 20 MEQ TABLET.EFF ONE (11:37)
[2023-12-02] MEDS ORDERED: CEFEPIME 2 GM VIAL IVPB ONE ×2 (11:37→17:08)
[2023-12-02] MEDS ORDERED: FAMOTIDINE 20 MG TAB ONE (11:37)
[2023-12-02] MEDS ORDERED: LORATADINE 10 MG TAB ONE (11:37)
[2023-12-02] MEDS ORDERED: SODIUM CHLORIDE 0.9% 100 ML ONE ×2 (11:38→17:08)
[2023-12-02 11:52] LABS: Glucose,Whole Blood 294 mg/dL (70-110)
[2023-12-02] MEDS ORDERED: ASPIRIN 81 MG ONE (12:00)
[2023-12-02 17:19] LABS: Glucose,Whole Blood 267 mg/dL (70-110)
[2023-12-02 21:09] LABS: Glucose,Whole Blood 374 mg/dL (70-110)
[2023-12-02] MEDS ORDERED: METOPROLOL TARTRATE 25 MG TAB ONE (22:28)
[2023-12-02 23:30] LABS: Glucose,Whole Blood 263 mg/dL (70-110)
[2023-12-02] MEDS ORDERED: SODIUM CHLORIDE 0.9% 1,000 ML BAG ONE (23:59)
[2023-12-03] MEDS ORDERED: EMPTY BAG 1 BAG ONE ×2 (00:01→03:27)
[2023-12-03] MEDS ORDERED: propofoL 100 ML IV ONE ×2 (00:01→03:27)
[2023-12-03] MEDS ORDERED: SODIUM CHLORIDE 0.9% 100 ML ONE ×3 (02:17→17:59)
[2023-12-03] MEDS ORDERED: CEFEPIME 2 GM VIAL IVPB ONE ×3 (02:17→17:59)
[2023-12-03] MEDS ORDERED: methylPREDNISolone SOD SUCCI 125 MG/2 ML VIAL ONE ×3 (05:01→17:58)
[2023-12-03 05:41] LABS: Glucose,Whole Blood 283 mg/dL (70-110)
[2023-12-03] MEDS ORDERED: INSULIN ASPART (NovoLOG) 100 UNIT/ML VIAL SQ ONE ×4 (05:44→20:15)
[2023-12-03] MEDS ORDERED: POTASSIUM BICARBONATE/CIT AC 20 MEQ TABLET.EFF ONE (06:21)
[2023-12-03] MEDS ORDERED: FORMOTEROL FUMARATE 20 MCG/2 ML NEBU INHALATION ONE ×2 (07:38→19:45)
[2023-12-03] MEDS ORDERED: BUDESONIDE 1 MG/2 ML NEBU INHALATION ONE ×2 (07:39→19:45)
[2023-12-03] MEDS ORDERED: IPRATROPIUM-ALBUTEROL 3 ML NEB ONE ×2 (07:39→23:28)
[2023-12-03] MEDS ORDERED: FUROSEMIDE 10 MG/ML 4 ML VIAL ONE ×2 (09:04)
[2023-12-03] MEDS ORDERED: PANTOPRAZOLE 40 MG/10 ML VIAL ONE (09:42)
[2023-12-03] MEDS ORDERED: ENOXAPARIN 40 MG/0.4 ML SYRINGE SQ ONE (09:43)
[2023-12-03 16:25] LABS: Glucose,Whole Blood 169 mg/dL (70-110)
[2023-12-03] MEDS ORDERED: ASPIRIN 81 MG ONE (17:58)
[2023-12-03] MEDS ORDERED: ATORVASTATIN 40 MG TAB ONE (17:58)
[2023-12-03] MEDS ORDERED: LORATADINE 10 MG TAB ONE (17:58)
[2023-12-03] MEDS ORDERED: FAMOTIDINE 20 MG TAB ONE (17:58)
[2023-12-03] MEDS ORDERED: MULTIVITAMINS, THERA 1 EACH TAB ONE (17:58)
[2023-12-03 20:10] LABS: Glucose,Whole Blood 223 mg/dL (70-110)
[2023-12-03] MEDS ORDERED: METOPROLOL TARTRATE 25 MG TAB ONE (20:15)
[2023-12-03] MEDS ORDERED: DEXTROSE 5% IN WATER 50 ML BAG ONE (23:59)
[2023-12-03] MEDS ORDERED: SODIUM CHLORIDE 0.9% 100 ML BAG IV ONE (23:59)
[2023-12-03] MEDS ORDERED: AMIODARONE 50 MG/ML 9 ML VIAL IV ONE (23:59)
[2023-12-03] MEDS ORDERED: AMIODARONE 50 MG/ML 3 ML VIAL IV ONE (23:59)
[2023-12-03] MEDS ORDERED: DEXTROSE 5% IN WATER 250 ML BAG ONE (23:59)
[2023-12-04] MEDS ORDERED: ZOLPIDEM 5 MG TAB ONE ×2 (00:15→21:32)
[2023-12-04] MEDS ORDERED: SODIUM CHLORIDE 0.9% 100 ML ONE ×2 (03:21→09:15)
[2023-12-04] MEDS ORDERED: CEFEPIME 2 GM VIAL IVPB ONE ×3 (03:21→16:37)
[2023-12-04] MEDS ORDERED: methylPREDNISolone SOD SUCCI 125 MG/2 ML VIAL ONE ×5 (05:17→23:36)
[2023-12-04 06:30] LABS: Glucose,Whole Blood 158 mg/dL (70-110)
[2023-12-04] MEDS ORDERED: INSULIN ASPART (NovoLOG) 100 UNIT/ML VIAL SQ ONE ×4 (06:43→20:17)
[2023-12-04] MEDS ORDERED: PANTOPRAZOLE 40 MG/10 ML VIAL ONE (09:13)
[2023-12-04] MEDS ORDERED: FUROSEMIDE 10 MG/ML 4 ML VIAL ONE ×4 (09:13→20:16)
[2023-12-04] MEDS ORDERED: LORATADINE 10 MG TAB ONE (09:14)
[2023-12-04] MEDS ORDERED: ATORVASTATIN 40 MG TAB ONE (09:14)
[2023-12-04] MEDS ORDERED: DAPAGLIFLOZIN PROPANEDIOL 5 MG TABLET ONE (09:14)
[2023-12-04] MEDS ORDERED: ASPIRIN 81 MG ONE (09:14)
[2023-12-04] MEDS ORDERED: MULTIVITAMINS, THERA 1 EACH TAB ONE (09:14)
[2023-12-04] MEDS ORDERED: METOPROLOL TARTRATE 25 MG TAB ONE ×2 (09:14→19:48)
[2023-12-04] MEDS ORDERED: APIXABAN 5 MG TAB ONE ×2 (09:15→20:17)
[2023-12-04] MEDS ORDERED: AMIODARONE 200 MG TAB ONE ×2 (09:15→20:20)
[2023-12-04] MEDS ORDERED: FAMOTIDINE 20 MG TAB ONE (09:15)
[2023-12-04 12:00] LABS: Glucose,Whole Blood 275 mg/dL (70-110)
[2023-12-04 16:37] LABS: Glucose,Whole Blood 209 mg/dL (70-110)
[2023-12-04] MEDS ORDERED: FORMOTEROL FUMARATE 20 MCG/2 ML NEBU INHALATION ONE (19:44)
[2023-12-04] MEDS ORDERED: BUDESONIDE 1 MG/2 ML NEBU INHALATION ONE (19:44)
[2023-12-04 19:56] LABS: Glucose,Whole Blood 226 mg/dL (70-110)
[2023-12-05] MEDS ORDERED: CEFEPIME 2 GM VIAL IVPB ONE ×3 (01:18→18:17)
[2023-12-05] MEDS ORDERED: SODIUM CHLORIDE 0.9% 100 ML ONE ×3 (01:18→18:17)
[2023-12-05 06:37] LABS: Glucose,Whole Blood 228 mg/dL (70-110)
[2023-12-05] MEDS ORDERED: methylPREDNISolone SOD SUCCI 125 MG/2 ML VIAL ONE (06:49)
[2023-12-05] MEDS ORDERED: INSULIN ASPART (NovoLOG) 100 UNIT/ML VIAL SQ ONE ×3 (06:50→18:17)
[2023-12-05] MEDS ORDERED: ASPIRIN 81 MG ONE (09:28)
[2023-12-05] MEDS ORDERED: MULTIVITAMINS, THERA 1 EACH TAB ONE (09:28)
[2023-12-05] MEDS ORDERED: PANTOPRAZOLE 40 MG/10 ML VIAL ONE (09:28)
[2023-12-05] MEDS ORDERED: FUROSEMIDE 10 MG/ML 4 ML VIAL ONE ×4 (09:28→22:14)
[2023-12-05] MEDS ORDERED: ATORVASTATIN 40 MG TAB ONE (09:28)
[2023-12-05] MEDS ORDERED: APIXABAN 5 MG TAB ONE ×2 (09:29→22:14)
[2023-12-05] MEDS ORDERED: DAPAGLIFLOZIN PROPANEDIOL 5 MG TABLET ONE (09:29)
[2023-12-05] MEDS ORDERED: predniSONE 20 MG TAB ONE (09:29)
[2023-12-05] MEDS ORDERED: LORATADINE 10 MG TAB ONE (09:29)
[2023-12-05] MEDS ORDERED: AMIODARONE 200 MG TAB ONE ×2 (09:29→22:15)
[2023-12-05] MEDS ORDERED: METOPROLOL TARTRATE 25 MG TAB ONE ×2 (09:29→22:14)
[2023-12-05] MEDS ORDERED: POTASSIUM CHLORIDE ER 20 MEQ TAB.ER PO ONE ×2 (09:30)
[2023-12-05] MEDS ORDERED: FAMOTIDINE 20 MG TAB ONE (09:42)
[2023-12-05 11:59] LABS: Glucose,Whole Blood 227 mg/dL (70-110)
[2023-12-05 17:03] LABS: Glucose,Whole Blood 225 mg/dL (70-110)
[2023-12-05] MEDS ORDERED: FORMOTEROL FUMARATE 20 MCG/2 ML NEBU INHALATION ONE (20:20)
[2023-12-05] MEDS ORDERED: BUDESONIDE 1 MG/2 ML NEBU INHALATION ONE (20:21)
[2023-12-05] MEDS ORDERED: IPRATROPIUM-ALBUTEROL 3 ML NEB ONE (20:21)
[2023-12-05 21:35] LABS: Glucose,Whole Blood 208 mg/dL (70-110)
[2023-12-05] MEDS ORDERED: ONDANSETRON 4 MG/2 ML VIAL ONE ×2 (22:20)
[2023-12-06] MEDS ORDERED: ZOLPIDEM 5 MG TAB ONE ×2 (01:09→22:42)
[2023-12-06] MEDS ORDERED: CEFEPIME 2 GM VIAL IVPB ONE ×3 (02:27→17:44)
[2023-12-06] MEDS ORDERED: SODIUM CHLORIDE 0.9% 100 ML ONE ×3 (02:27→17:44)
[2023-12-06 06:17] LABS: Glucose,Whole Blood 190 mg/dL (70-110)
[2023-12-06] MEDS ORDERED: INSULIN ASPART (NovoLOG) 100 UNIT/ML VIAL SQ ONE ×4 (06:40→22:37)
[2023-12-06] MEDS ORDERED: BUDESONIDE 1 MG/2 ML NEBU INHALATION ONE ×2 (07:51→19:45)
[2023-12-06] MEDS ORDERED: IPRATROPIUM-ALBUTEROL 3 ML NEB ONE ×2 (07:51→19:45)
[2023-12-06] MEDS ORDERED: FORMOTEROL FUMARATE 20 MCG/2 ML NEBU INHALATION ONE ×2 (07:51→19:44)
[2023-12-06] MEDS ORDERED: PANTOPRAZOLE 40 MG/10 ML VIAL ONE (07:54)
[2023-12-06] MEDS ORDERED: FUROSEMIDE 10 MG/ML 4 ML VIAL ONE ×2 (07:54)
[2023-12-06] MEDS ORDERED: FAMOTIDINE 20 MG TAB ONE (07:58)
[2023-12-06] MEDS ORDERED: METOPROLOL TARTRATE 25 MG TAB ONE ×2 (07:58→22:46)
[2023-12-06] MEDS ORDERED: MULTIVITAMINS, THERA 1 EACH TAB ONE ×2 (07:58→08:11)
[2023-12-06] MEDS ORDERED: ASPIRIN 81 MG ONE (07:58)
[2023-12-06] MEDS ORDERED: ATORVASTATIN 40 MG TAB ONE (07:58)
[2023-12-06] MEDS ORDERED: LORATADINE 10 MG TAB ONE (07:59)
[2023-12-06] MEDS ORDERED: DAPAGLIFLOZIN PROPANEDIOL 5 MG TABLET ONE ×2 (07:59→22:36)
[2023-12-06] MEDS ORDERED: AMIODARONE 200 MG TAB ONE ×3 (08:06→22:50)
[2023-12-06] MEDS ORDERED: APIXABAN 5 MG TAB ONE ×2 (08:06→22:35)
[2023-12-06 12:02] LABS: Glucose,Whole Blood 266 mg/dL (70-110)
[2023-12-06] MEDS ORDERED: MAGNESIUM HYDROXIDE 2,400 MG/30 ML CUP ONE (13:19)
[2023-12-06 17:24] LABS: Glucose,Whole Blood 210 mg/dL (70-110)
[2023-12-06 21:24] LABS: Glucose,Whole Blood 230 mg/dL (70-110)
[2023-12-06] MEDS ORDERED: FUROSEMIDE 40 MG TAB ONE (22:37)
[2023-12-07] MEDS ORDERED: IPRATROPIUM-ALBUTEROL 3 ML NEB ONE ×4 (05:57→15:36)
[2023-12-07 06:10] LABS: Glucose,Whole Blood 136 mg/dL (70-110)
[2023-12-07] MEDS ORDERED: BUDESONIDE 1 MG/2 ML NEBU INHALATION ONE (07:47)
[2023-12-07] MEDS ORDERED: FORMOTEROL FUMARATE 20 MCG/2 ML NEBU INHALATION ONE (07:47)
[2023-12-07] MEDS ORDERED: ASPIRIN 81 MG ONE (08:54)
[2023-12-07] MEDS ORDERED: MULTIVITAMINS, THERA 1 EACH TAB ONE (08:54)
[2023-12-07] MEDS ORDERED: PANTOPRAZOLE 40 MG/10 ML VIAL ONE (08:54)
[2023-12-07] MEDS ORDERED: APIXABAN 5 MG TAB ONE ×2 (08:54→21:05)
[2023-12-07] MEDS ORDERED: ATORVASTATIN 40 MG TAB ONE (08:54)
[2023-12-07] MEDS ORDERED: FAMOTIDINE 20 MG TAB ONE (08:54)
[2023-12-07] MEDS ORDERED: METOPROLOL TARTRATE 25 MG TAB ONE ×2 (08:55→21:05)
[2023-12-07] MEDS ORDERED: LORATADINE 10 MG TAB ONE (08:55)
[2023-12-07] MEDS ORDERED: DAPAGLIFLOZIN PROPANEDIOL 5 MG TABLET ONE (08:55)
[2023-12-07] MEDS ORDERED: AMIODARONE 200 MG TAB ONE ×3 (08:55→21:29)
[2023-12-07] MEDS ORDERED: CEFEPIME 2 GM VIAL IVPB ONE (08:56)
[2023-12-07] MEDS ORDERED: FUROSEMIDE 40 MG TAB ONE ×2 (09:11→21:15)
[2023-12-07] MEDS ORDERED: predniSONE 20 MG TAB ONE (09:11)
[2023-12-07] MEDS ORDERED: bisacodyL 10 MG SUPP RECTAL ONE ×2 (09:20)
[2023-12-07] MEDS ORDERED: INSULIN ASPART (NovoLOG) 100 UNIT/ML VIAL SQ ONE ×3 (12:49→21:06)
[2023-12-07] MEDS ORDERED: ZINC OXIDE PASTE (Z-GUARD) 1 APPLIC TOPICAL ONE ×2 (15:03)
[2023-12-07 20:37] LABS: Glucose,Whole Blood 366 mg/dL (70-110)
[2023-12-07] MEDS ORDERED: ZOLPIDEM 5 MG TAB ONE (21:22)
[2023-12-08] MEDS ORDERED: SODIUM POLYSTYRENE SULFONATE 15 GM/60 ML BOTTLE ONE ×2 (01:58)
[2023-12-08] MEDS ORDERED: INSULIN ASPART (NovoLOG) 100 UNIT/ML VIAL SQ ONE ×3 (06:25→22:42)
[2023-12-08] MEDS ORDERED: ASPIRIN 81 MG ONE (08:28)
[2023-12-08] MEDS ORDERED: ATORVASTATIN 40 MG TAB ONE (08:28)
[2023-12-08] MEDS ORDERED: FAMOTIDINE 20 MG TAB ONE (08:28)
[2023-12-08] MEDS ORDERED: APIXABAN 5 MG TAB ONE ×2 (08:28→22:21)
[2023-12-08] MEDS ORDERED: MULTIVITAMINS, THERA 1 EACH TAB ONE (08:28)
[2023-12-08] MEDS ORDERED: LORATADINE 10 MG TAB ONE (08:29)
[2023-12-08] MEDS ORDERED: AMIODARONE 200 MG TAB ONE ×2 (08:29→22:22)
[2023-12-08] MEDS ORDERED: DAPAGLIFLOZIN PROPANEDIOL 5 MG TABLET ONE (08:29)
[2023-12-08] MEDS ORDERED: METOPROLOL TARTRATE 25 MG TAB ONE ×2 (08:29→22:20)
[2023-12-08] MEDS ORDERED: PANTOPRAZOLE 40 MG/10 ML VIAL ONE (08:29)
[2023-12-08] MEDS ORDERED: BUDESONIDE 1 MG/2 ML NEBU INHALATION ONE (08:35)
[2023-12-08] MEDS ORDERED: FORMOTEROL FUMARATE 20 MCG/2 ML NEBU INHALATION ONE (08:35)
[2023-12-08] MEDS ORDERED: IPRATROPIUM-ALBUTEROL 3 ML NEB ONE ×3 (08:35→15:12)
[2023-12-08] MEDS ORDERED: FUROSEMIDE 40 MG TAB ONE ×2 (10:18→22:24)
[2023-12-08 11:36] LABS: Glucose,Whole Blood 369 mg/dL (70-110)
[2023-12-08 16:57] LABS: Glucose,Whole Blood 86 mg/dL (70-110)
[2023-12-08 21:02] LABS: Glucose,Whole Blood 220 mg/dL (70-110)
[2023-12-09] MEDS ORDERED: ZOLPIDEM 5 MG TAB ONE (00:30)
[2023-12-09 05:51] LABS: Glucose,Whole Blood 160 mg/dL (70-110)
[2023-12-09] MEDS ORDERED: BUDESONIDE 1 MG/2 ML NEBU INHALATION ONE (09:20)
[2023-12-09] MEDS ORDERED: IPRATROPIUM-ALBUTEROL 3 ML NEB ONE (09:21)
[2023-12-09] MEDS ORDERED: FAMOTIDINE 20 MG TAB ONE (09:48)
[2023-12-09] MEDS ORDERED: APIXABAN 5 MG TAB ONE (09:48)
[2023-12-09] MEDS ORDERED: ATORVASTATIN 40 MG TAB ONE (09:48)
[2023-12-09] MEDS ORDERED: MULTIVITAMINS, THERA 1 EACH TAB ONE (09:48)
[2023-12-09] MEDS ORDERED: ASPIRIN 81 MG ONE (09:48)
[2023-12-09] MEDS ORDERED: DAPAGLIFLOZIN PROPANEDIOL 5 MG TABLET ONE (09:49)
[2023-12-09] MEDS ORDERED: PANTOPRAZOLE 40 MG/10 ML VIAL ONE (09:49)
[2023-12-09] MEDS ORDERED: METOPROLOL TARTRATE 25 MG TAB ONE (09:49)
[2023-12-09] MEDS ORDERED: FUROSEMIDE 40 MG TAB ONE (09:49)
[2023-12-09] MEDS ORDERED: AMIODARONE 200 MG TAB ONE (09:50)
[2023-12-09] MEDS ORDERED: LORATADINE 10 MG TAB ONE (09:50)
[2023-12-09] MEDS ORDERED: predniSONE 20 MG TAB ONE (10:12)
[2023-12-09] MEDS ORDERED: INSULIN ASPART (NovoLOG) 100 UNIT/ML VIAL SQ ONE (12:50)
[2023-12-09 12:55] LABS: Glucose,Whole Blood 214 mg/dL (70-110)
--- NOTE | 2023-12-23 16:05 | US ---
Patient: Ludwin Golden G Ordering Physician: Unknown, Unknown ID: [id number] Phone, Pager: Phone: N/A Pager: N/A : 1945 Age/Gender: 78Y, M Primary Location: N/A Procedure: US venous doppler duple x LE BI Study Date: 12/01/2023 10:24:00 AM EXAMINATION TYPE: US venous doppler duplex LE DATE OF EXAM: 12/19/2023 10:07 AM COMPARISON: NONE CLINICAL INDICATION: Swelling SIDE PERFORMED: Bilateral TECHNIQUE: The lower extremity deep venous system is examined utilizing real time linear array sonog leti with graded compression, doppler sonography and color-flow sonography. VESSELS IMAGED: Common Femoral Vein Deep Femoral Vein Greater Saphenous Vein * Femoral Vein Popliteal Vein Small Saphenous Vein * Proximal Calf Veins (* superficial vessels) Right Leg: Negative for DVT Left Leg: Negative for DVT IMPRESSION: Grayscale, color doppler, spectral doppler imaging performed of the deep veins of the lo wer extremities. There is normal flow, compressibility, vascular waveforms. No evidence for DVT in bilateral legs
--- NOTE | 2024-01-03 09:51 | XR ---
EXAMINATION TYPE: XR chest 1V DATE OF EXAM: 12/02/2023 CLINICAL INDICATION: Male, 78 years old with history of Mechanically Ventilated; [facility] COMPARISON: Chest radiographs from 12/01/2023. TECHNIQUE: XR chest 1V Frontal view of the chest. FINDINGS: Lungs/Pleura: No evidence of focal consolidation or pneumothorax. Blunting of the costophrenic angles is present. Pulmonary vascularity: Pulmonary vascular congestion. Heart/mediastinum: Cardiomediastinal silhouette is enlarged. Musculoskeletal: Degenerative changes of the shoulder joints. Other findings: None Lines/Tubes: Endotracheal tube with distal tip 5.5cm above the mile. Nasogastric tube with its distal tip and side-port projecting under the diaphragm. Left internal jugular central venous catheter with distal tip at the cavoatrial junction. IMPRESSION: 1. Stable support tubes and line. 2. Cardiomegaly, pulmonary vascular congestion and bilateral pleural effusions. Correlate with BNP f or congestive heart failure.
--- NOTE | 2024-01-07 15:08 | XR ---
Patient Ludwin Golden ID [id number] Order # EXAMINATION TYPE: XR chest 1V DATE OF EXAM: 12/14/2023 COMPARISON: 12/03/2023 INDICATION: Follow-up intubation, difficulty breathing TECHNIQUE: Single frontal view of the chest is obtained. FINDINGS: The heart size is large. The pulmonary vasculature is somewhat prominent. Mild bibasilar infiltrates are present greater on the left. On the left this is increasing from scooby rison. Patient has been extubated. Nasogastric tube is been removed. IMPRESSION: 1. Increasing mild left lower lobe infiltrate. Correlate for pneumonia and atelectasis. 2. Mild infiltrate at the right base. Correlate for subsegmental atelectasis. 3. Cardiomegaly.
--- NOTE | 2024-01-08 18:19 | XR ---
Patient Ludwin Golden ID [id number] Order # EXAMINATION TYPE: XR chest 1V DATE OF EXAM: 12/14/2023 COMPARISON: No comparison available on downtime PACS. INDICATION: NG and ETT tube placement TECHNIQUE: Single frontal view of the chest is obtained. FINDINGS: The heart size is normal. The pulmonary vasculature is upper limits of normal. Small bilateral pleural effusions are present. Some mild infiltrates may be at the lung bases. Correl ate for subsegmental atelectasis. Endotracheal tube tip is 4.5 cm above the mile. Nasogastric tube transverses the thorax with tip in the left upper quadrant of the abdomen. IMPRESSION: 1. Bibasilar infiltrates. Correlate for atelectasis. 2. Lines and catheters discussed above.
== END 2023-12-09 14:47 | DRG 208 ==
LOC: EC 13:15 → 3SCARD 16:43 → 2SICU 22:03
PROVIDERS: ADMIT Hospitalist; ATTEND Hospitalist
PROC: 5A1945Z Respiratory Ventilation, 24-96 Consecutive Hours (ICD-10-PCS; principal; 2023-11-30)
PROC: 0BH17EZ Insertion of Endotracheal Airway into Trachea, Via Natural or Artificial Opening (ICD-10-PCS; principal; 2023-11-30)
PROC: 3E0G76Z Introduction of Nutritional Substance into Upper GI, Via Natural or Artificial Opening (ICD-10-PCS; 2023-11-30)
PROC: 0DH67UZ Insertion of Feeding Device into Stomach, Via Natural or Artificial Opening (ICD-10-PCS; 2023-11-30)
PROC: 3E043XZ Introduction of Vasopressor into Central Vein, Percutaneous Approach (ICD-10-PCS; 2023-11-30)
PROC: 02HV33Z Insertion of Infusion Device into Superior Vena Cava, Percutaneous Approach (ICD-10-PCS; 2023-11-30)
PROC: 4A133B1 Monitoring of Arterial Pressure, Peripheral, Percutaneous Approach (ICD-10-PCS; 2023-12-01)
PROC: 03HY32Z Insertion of Monitoring Device into Upper Artery, Percutaneous Approach (ICD-10-PCS; 2023-12-01)
PROC: 4A133J1 Monitoring of Arterial Pulse, Peripheral, Percutaneous Approach (ICD-10-PCS; 2023-12-01)
DX: J96.21 Acute and chronic respiratory failure with hypoxia (principal); N17.0 Acute kidney failure with tubular necrosis; R57.0 Cardiogenic shock; J18.9 Pneumonia, unspecified organism; I50.23 Acute on chronic systolic (congestive) heart failure; I21.A1 Myocardial infarction type 2; J44.1 Chronic obstructive pulmonary disease with (acute) exacerbation; J44.0 Chronic obstructive pulmonary disease with (acute) lower respiratory infection; E87.20 Acidosis, unspecified; J96.22 Acute and chronic respiratory failure with hypercapnia; N40.0 Benign prostatic hyperplasia without lower urinary tract symptoms; I35.0 Nonrheumatic aortic (valve) stenosis; E11.9 Type 2 diabetes mellitus without complications; I11.0 Hypertensive heart disease with heart failure; Z99.81 Dependence on supplemental oxygen; E86.0 Dehydration; R11.10 Vomiting, unspecified; R79.1 Abnormal coagulation profile; Z66 Do not resuscitate; E78.5 Hyperlipidemia, unspecified; F17.200 Nicotine dependence, unspecified, uncomplicated; K59.00 Constipation, unspecified; M19.90 Unspecified osteoarthritis, unspecified site; I25.10 Atherosclerotic heart disease of native coronary artery without angina pectoris; I25.2 Old myocardial infarction; Z79.899 Other long term (current) drug therapy; Z79.84 Long term (current) use of oral hypoglycemic drugs; Z79.82 Long term (current) use of aspirin; Z79.52 Long term (current) use of systemic steroids; Z79.51 Long term (current) use of inhaled steroids; Z96.643 Presence of artificial hip joint, bilateral; Z88.0 Allergy status to penicillin
CPT/HCPCS: 31500; 36415; 36556; 36600; 51798; 71045; 71046; 80048; 80051; 80053; 81001; 82565; 82805; 83605; 84145; 84484; 84520; 85025; 85027; 85379; 85610; 85730; 87040; 87070; 87077; 87186; 87205; 87449; 87636; 93005; 93306; 93970; 94002; 94003; 94640; 94660; 94760; 96361; 96365; 96366; 96368; 96375; 99291

== ENCOUNTER → 2023-12-17 | Outpatient (CLI) | payer MEDICARE | END | disposition home or self-care (01) | LOC: LABPRL 06:10 | PROVIDERS: ATTEND Internal Medicine Geriatric Medicine | CPT/HCPCS: 83036 ==

== ENCOUNTER → 2023-12-26 | Outpatient (CLI) | payer MEDICARE ==
[2023-12-26 18:35] LABS: HCT 29.1 % (39.6-50.0); HGB 8.5 g/dL (13.0-17.0); MCH 27.2 pg (27.0-32.0); MCHC 29.2 g/dL (32.0-37.0); Mean Platelet Volume 11.9 FL (9.5-12.2); NRBC Per 100 WBC 0.09 X 10*3/uL (0.00-0.01); Platelet Count 243 X 10*3/uL (140-440); RBC 3.13 X 10*6/uL (4.40-5.60); RDW 18.8 % (11.5-14.5); WBC 9.85 X 10*3/uL (4.50-10.00)
[2023-12-26 20:19] LABS: BUN/Creat Ratio 15.92 Ratio (12.00-20.00); Blood Urea Nitrogen 20.7 mg/dL (9.0-27.0); Calcium 8.7 mg/dL (8.7-10.3); Chloride 106 mmol/L (96-109); Glucose 124 mg/dL (70-110); Potassium 4.5 mmol/L (3.5-5.5); Sodium 143 mmol/L (135-145)
[2023-12-26 21:30] LABS: NT-Pro-B-Type Natriuretic Pept 683 pg/mL (0-450)
== END | disposition home or self-care (01) ==
LOC: LABWHC1 12:15
PROVIDERS: ATTEND Nurse Practitioner Adult Health
DX: I48.0 Paroxysmal atrial fibrillation (principal); R60.0 Localized edema; R06.02 Shortness of breath
CPT/HCPCS: 36415; 80048; 83880; 85027

== ENCOUNTER 2024-04-06 09:30 | Day surgery (SDC) | payer MEDICARE ==
[2024-04-02 13:07] VITALS: BMI 26.6
[2024-04-06] MEDS: IV FLUID CONTINUATION 1,000 ML IV ONE (10:17)
[2024-04-06] MEDS: LACTATED RINGERS 1,000 ML IV SCH (10:25)
[2024-04-06 10:29] LABS: Glucose,Whole Blood 97 mg/dL (70-110)
[2024-04-06 10:33] VITALS: RESP 16; TEMP 97.9
[2024-04-06] MEDS ORDERED: PROPOFOL 10 MG/ML 20 ML VIAL IV ONE (10:43)
--- NOTE | 2024-04-06 10:52 | P.GSHP ---
History of Present Illness H&P Date: 04/06/24 Chief Complaint: GI bleed anemia 78-year-old male here for colonoscopy. Last colonoscopy 10 years ago. Patient with intermittent rectal bleeding and recent findings of anemia. Hemoglobin 8.5. Past Medical History Past Medical History: Atrial Fibrillation, Chest Pain / Angina, COPD, Diabetes Mellitus, Hyperlipidemia, Hypertension, Osteoarthritis (OA), Pneumonia, Prostate Disorder, Supraventricular Tachycardia (SVT) Additional Past Medical History / Comment(s): Chronic hypoxic respiratory failure with home oxygen pt mostly just wears at night, past acute hypoxic respiratory failure requiring bipap, newly diagnosed , BPH, UTI Last Myocardial Infarction Date:: 2008 History of Any Multi-Drug Resistant Organisms: None Reported Past Surgical History: Back Surgery, Heart Catheterization, Hernia Repair, Joint Replacement, Orthopedic Surgery Additional Past Surgical History / Comment(s): microlaryngoscopy w/ lt vocal cord bx-neg, bronch-lung bx-neg, lt inguinal hernia, low back surgery, bilateral total hip arthroplasties, bilateral cataracts removed., colonoscopy, cataract surgery bilateral Past Anesthesia/Blood Transfusion Reactions: No Reported Reaction Smoking Status: Former smoker - Past Family History Mother Family Medical History: COPD, Diabetes Mellitus Father Family Medical History: COPD, Diabetes Mellitus Brother(s) Family Medical History: Cancer Additional Family Medical History / Comment(s): leukemia Medications and Allergies Home Medications Medication Instructions Recorded Confirmed Type Budesonide-Formot 160-4.5 Mcg 2 puff INHALATION RT-BID 07/17/16 04/06/24 History [Symbicort 160-4.5 Mcg Inhaler] Albuterol Sulfate [Albuterol 2 puff PO RT-Q4H PRN 04/13/23 04/06/24 History Sulfate Hfa] predniSONE 10 mg PO DAILY 8 Days #20 tab 06/10/23 04/06/24 Rx Cetirizine HCl [Zyrtec] 10 mg PO DAILY 11/26/23 04/06/24 History Famotidine [Pepcid] 20 mg PO BID 11/26/23 04/06/24 History Ipratropium-Albuterol Nebulize 3 ml INHALATION RT-Q4H 11/26/23 04/06/24 History [Duoneb 0.5 mg-3 mg/3 ml Soln] Multivit-Mins/Iron/Folic/Lycop 1 tab PO DAILY 11/26/23 04/06/24 History [Centrum Men's Tablet] Zolpidem [Ambien] 5 mg PO HS PRN 11/26/23 04/06/24 History buPROPion HCL [buPROPion HCL SR] 100 mg PO BID 11/26/23 04/06/24 History metFORMIN HCL 500 mg PO BID 11/26/23 04/06/24 History Atorvastatin [Lipitor] 40 mg PO DAILY #30 tab 11/29/23 04/06/24 Rx Metoprolol Tartrate [Lopressor] 25 mg PO BID #60 tab 11/29/23 04/06/24 Rx Amiodarone [Cordarone] 100 mg PO DAILY 04/02/24 04/06/24 History Apixaban [Eliquis] 1 tab PO BID 04/02/24 04/06/24 History Empagliflozin [Jardiance] 10 mg PO DAILY 04/02/24 04/06/24 History Ferrous Sulfate [Iron (65 MG 1 tab PO DAILY 04/02/24 04/06/24 History Elemental)] Furosemide [Lasix] 20 mg PO DAILY 04/02/24 04/06/24 History INSULIN ASPART (NovoLOG) [NovoLOG 0 unit SQ DIRECTED 04/02/24 04/06/24 History (formulary)] Allergies Allergy/AdvReac Type Severity Reaction Status Date / Time Penicillins Allergy Rash/Hives Verified 04/06/24 10:21 Surgical - Exam Vital Signs Temp Pulse Resp BP Pulse Ox 97.9 F 70 16 161/84 97 04/06/24 10:31 04/06/24 10:31 04/06/24 10:31 04/06/24 10:31 04/06/24 10:31 Physical exam: General: Well-developed, well-nourished HEENT: Normocephalic, sclerae nonicteric Abdomen: Nontender, nondistended Extremities: No edema Neuro: Alert and oriented Assessment and Plan (1) GI bleed Narrative/Plan: Will proceed with colonoscopy at this time. Current Visit: Yes Status: Acute Code(s): K92.2 - GASTROINTESTINAL HEMORRHAGE, UNSPECIFIED SNOMED Code(s): 67646199
--- NOTE | 2024-04-06 11:10 | P.PCN ---
Date of Procedure: 04/06/24 Procedure(s) Performed: PREOPERATIVE DIAGNOSIS: GI bleed, anemia POSTOPERATIVE DIAGNOSIS: Ascending colon polyp, rectal polyp x 2, diverticulosis, poor prep PROCEDURE: Colonoscopy with snare polypectomy ANESTHESIA: MAC SURGEON: Marcelo Richardson M.D. SPECIMENS: Polyps ENDOSCOPIC PROCEDURE: The patient was placed on the endoscopy table in the left decubitus position. The Olympus colonoscope was inserted into the anus and passed under direct visualization to the base of the cecum. The appendiceal orifice was visualized. From that point the scope was slowly withdrawn inspecting all surfaces carefully. There were no neoplastic inflammatory or polypoid lesions throughout the cecum. In the ascending colon a small polyp was noted and removed using the snare with cautery technique. The transverse descending and sigmoid colon appeared normal. In the rectum the patient had 2 polyps 1 was quite small the other was larger measuring a little over 1 cm. These were removed using the snare with cautery technique. The patient had mild left-sided diverticulosis. The patient's prep was somewhat suboptimal with some retained liquid and semisolid stool noted. Digital rectal examination was normal. The patient was taken to the recovery room in stable condition per anesthesia guidelines. RECOMMENDATIONS: Await biopsy results. Recommend short-term repeat colonoscopy given the patient's poor prep. Patient's lower rectal polyp could explain some intermittent bleeding. Would be unusual to lead to that degree of anemia with hemoglobin 8.5. Continue anemia workup.
[2024-04-06 11:37] VITALS: BP 164/75; PULSE 61
== END 2024-04-06 12:08 | disposition home or self-care (01) ==
LOC: ORWHC2ENDO 09:30
PROVIDERS: ATTEND Surgery
DX: K57.31 Diverticulosis of large intestine without perforation or abscess with bleeding (principal); D12.2 Benign neoplasm of ascending colon; D12.8 Benign neoplasm of rectum; D50.9 Iron deficiency anemia, unspecified; I48.91 Unspecified atrial fibrillation; I10 Essential (primary) hypertension; E78.5 Hyperlipidemia, unspecified; M19.90 Unspecified osteoarthritis, unspecified site; J44.9 Chronic obstructive pulmonary disease, unspecified; E11.9 Type 2 diabetes mellitus without complications; I47.10 Supraventricular tachycardia, unspecified; N40.0 Benign prostatic hyperplasia without lower urinary tract symptoms; J96.11 Chronic respiratory failure with hypoxia; Z98.890 Other specified postprocedural states; Z87.891 Personal history of nicotine dependence; Z79.899 Other long term (current) drug therapy; Z79.4 Long term (current) use of insulin; Z79.01 Long term (current) use of anticoagulants; Z79.84 Long term (current) use of oral hypoglycemic drugs; Z79.51 Long term (current) use of inhaled steroids; Z88.0 Allergy status to penicillin
CPT/HCPCS: 88305; 45385; J2704

== ENCOUNTER 2024-04-12 22:50 | Emergency (ER) | payer MEDICARE ==
[2024-04-12 22:58] VITALS: RESP 18
--- NOTE | 2024-04-12 23:07 | ED ---
Fall HPI - General Stated Complaint: Fall - Head Injury Time Seen by Provider: 04/12/24 22:54 Source: patient, RN notes reviewed, old records reviewed Mode of arrival: EMS Limitations: no limitations - History of Present Illness Initial Comments: This is a 78-year-old male to the ER for evaluation patient presents today for fall unknown fall severe intoxication here in the ER suspected anticoagulations, patient will be code coag Complaint: fall -: unknown Fall From: standing When Fall Occurred: 1 hour [employer] Fall Witnessed: yes, by bystander Place Fall Occurred: other (Patient was at [employer] drinking) Loss of Consciousness: yes Prolonged Down Time?: no Symptoms Prior to Fall: none Location: face Severity: severe Context: alcohol use Associated Symptoms: headache - Related Data Home Medications Medication Instructions Recorded Confirmed Budesonide-Formot 160-4.5 Mcg 2 puff INHALATION RT-BID 07/17/16 04/06/24 [Symbicort 160-4.5 Mcg Inhaler] Albuterol Sulfate [Albuterol 2 puff PO RT-Q4H PRN 04/13/23 04/06/24 Sulfate Hfa] Cetirizine HCl [Zyrtec] 10 mg PO DAILY 11/26/23 04/06/24 Famotidine [Pepcid] 20 mg PO BID 11/26/23 04/06/24 Ipratropium-Albuterol Nebulize 3 ml INHALATION RT-Q4H 11/26/23 04/06/24 [Duoneb 0.5 mg-3 mg/3 ml Soln] Multivit-Mins/Iron/Folic/Lycop 1 tab PO DAILY 11/26/23 04/06/24 [Centrum Men's Tablet] Zolpidem [Ambien] 5 mg PO HS PRN 11/26/23 04/06/24 buPROPion HCL [buPROPion HCL SR] 100 mg PO BID 11/26/23 04/06/24 metFORMIN HCL 500 mg PO BID 11/26/23 04/06/24 Amiodarone [Cordarone] 100 mg PO DAILY 04/02/24 04/06/24 Apixaban [Eliquis] 1 tab PO BID 04/02/24 04/06/24 Empagliflozin [Jardiance] 10 mg PO DAILY 04/02/24 04/06/24 Ferrous Sulfate [Iron (65 MG 1 tab PO DAILY 04/02/24 04/06/24 Elemental)] Furosemide [Lasix] 20 mg PO DAILY 04/02/24 04/06/24 INSULIN ASPART (NovoLOG) [NovoLOG 0 unit SQ DIRECTED 04/02/24 04/06/24 (formulary)] Previous Rx's Medication Instructions Recorded predniSONE 10 mg PO DAILY 8 Days #20 tab 06/10/23 Atorvastatin [Lipitor] 40 mg PO DAILY #30 tab 11/29/23 Metoprolol Tartrate [Lopressor] 25 mg PO BID #60 tab 11/29/23 Allergies Allergy/AdvReac Type Severity Reaction Status Date / Time Penicillins Allergy Rash/Hives Verified 04/12/24 22:58 Review of Systems ROS Statement: Those systems with pertinent positive or pertinent negative responses have been documented in the HPI. ROS Other: All systems not noted in ROS Statement are negative. Past Medical History Past Medical History: Atrial Fibrillation, Chest Pain / Angina, COPD, Diabetes Mellitus, Hyperlipidemia, Hypertension, Osteoarthritis (OA), Pneumonia, Prostate Disorder, Supraventricular Tachycardia (SVT) Additional Past Medical History / Comment(s): Chronic hypoxic respiratory failure with home oxygen pt mostly just wears at night, past acute hypoxic respiratory failure requiring bipap, newly diagnosed , BPH, UTI Last Myocardial Infarction Date:: 2008 History of Any Multi-Drug Resistant Organisms: None Reported Past Surgical History: Back Surgery, Heart Catheterization, Hernia Repair, Joint Replacement, Orthopedic Surgery Additional Past Surgical History / Comment(s): microlaryngoscopy w/ lt vocal cord bx-neg, bronch-lung bx-neg, lt inguinal hernia, low back surgery, bilateral total hip arthroplasties, bilateral cataracts removed., colonoscopy, cataract surgery bilateral Past Anesthesia/Blood Transfusion Reactions: No Reported Reaction Past Psychological History: No Psychological Hx Reported Smoking Status: Former smoker - Past Family History Mother Family Medical History: COPD, Diabetes Mellitus Father Family Medical History: COPD, Diabetes Mellitus Brother(s) Family Medical History: Cancer Additional Family Medical History / Comment(s): leukemia General Exam Limitations: no limitations General appearance: alert, in no apparent distress Head exam: Present: atraumatic, normocephalic, normal inspection Eye exam: Present: normal appearance, PERRL, EOMI. Absent: scleral icterus, conjunctival injection, periorbital swelling ENT exam: Present: normal exam, mucous membranes moist Neck exam: Present: normal inspection. Absent: tenderness, meningismus, lymphadenopathy Respiratory exam: Present: normal lung sounds bilaterally. Absent: respiratory distress, wheezes, rales, rhonchi, stridor Cardiovascular Exam: Present: regular rate, normal rhythm, normal heart sounds. Absent: systolic murmur, diastolic murmur, rubs, gallop, clicks GI/Abdominal exam: Present: soft, normal bowel sounds. Absent: distended, tenderness, guarding, rebound, rigid Extremities exam: Present: normal inspection, full ROM, normal capillary refill. Absent: tenderness, pedal edema, joint swelling, calf tenderness Back exam: Present: normal inspection Neurological exam: Present: alert, oriented X3, CN II-XII intact Psychiatric exam: Present: normal affect, normal mood Skin exam: Present: warm, dry, intact, normal color. Absent: rash Course Vital Signs 04/12/24 22:51 Temperature 97.4 F L Pulse Rate 73 Respiratory 18 Rate Blood Pressure 142/84 O2 Sat by Pulse 96 Oximetry - Reevaluation(s) Reevaluation #1: 04/12/24 23:07 Medical records reviewed Code coag is page Reevaluation #2: 04/12/24 23:07 Patient laceration is repaired Reevaluation #4: Was pt. sent in by a medical professional or institution ([facility], [employer]NA[employer], urgent care, hospital, or [facility]...) When possible be specific @ -no Did you speak to anyone other than the patient for history (EMS, parent, family, police, friend...)? What history was obtained from this source @ -no Did you review nursing and triage notes (agree or disagree)? Why? @ -agree Are old charts reviewed (outside hosp., previous admission, EMS record, old EKG, old radiological studies, urgent care reports/EKG's, [facility] records)? Report findings @ -yes Differential Diagnosis (chest pain, altered mental status, abdominal pain women, abdominal pain men, vaginal bleeding, weakness, fever, dyspnea, syncope, headache, dizziness, GI bleed, back pain, seizure, CVA, palpatations, mental health, musculoskeletal)? @ -prior EKG interpreted by me (3pts min.). @ -yes X-rays interpreted by me (1pt min.). @ -yes negative for acute disease CT interpreted by me (1pt min.). @ -no U/S interpreted by me (1pt. min.). @ -no What testing was considered but not performed or refused? (CT, X-rays, U/S, labs)? Why? @ -none What meds were considered but not given or refused? Why? @ -none Did you discuss the management of the patient with other professionals (professionals i.e. DrYolette, PA, MANAGER [employer] SAL[employer], lab, RT, psych nurse, social media marketing specialist, job putter up and ticket preparer, teacher, us customs and border officer, shoe caser)? Give summary @ -no Was smoking cessation discussed for >3mins.? @ -no Was critical care preformed (if so, how long)? @ -no Were there social determinants of health that impacted care today? How? (Homelessness, low income, unemployed, alcoholism, drug addiction, transportation, low edu. Level, literacy, decrease access to med. care, long term, rehab)? @ -none Was there de-escalation of care discussed even if they declined (Discuss DNR or withdrawal of care, Hospice)? DNR status @ -no What co-morbidities impacted this encounter? (DM, HTN, Smoking, COPD, CAD, Cancer, CVA, ARF, Chemo, Hep., AIDS, mental health diagnosis, sleep apnea, morbid obesity)? @ -none Was patient admitted / discharged? Hospital course, mention meds given and route, prescriptions, significant lab abnormalities, going to OR and other pertinent info. @ - Undiagnosed new problem with uncertain prognosis? @ -no Drug Therapy requiring intensive monitoring for toxicity (Heparin, Nitro, Insulin, Cardizem)? @ -no Were any procedures done? @ -no Diagnosis/symptom? @ - Acute, or Chronic, or Acute on Chronic? @ -Acute Uncomplicated (without systemic symptoms) or Complicated (systemic symptoms)? @ -Complicated Side effects of treatment? @ -no Exacerbation, Progression, or Severe Exacerbation? @ -exacerbation Poses a threat to life or bodily function? How? (Chest pain, USA, MS, pneumonia, PE, COPD, DKA, ARF, appy, cholecystitis, CVA, Diverticulitis, Homicidal, Suicidal, threat to staff... and all critical care pts) @ -yes Reevaluation #5: Differential Headache: Migraine, tension, cluster, carbon monoxide, central venous thrombosis, pension karma temporal arteritis, acute closure glaucoma, intercranial hemorrhage, mastoiditis, sinusitis, head injury, this is not meant to be an all-inclusive list. Disposition Clinical Impression: Fall, Nasal fracture, Facial laceration, Alcohol intoxication Disposition: HOME SELF-CARE Condition: Good Instructions (If sedation given, give patient instructions): Fall Prevention for Older Adults (ED), Facial Laceration (ED), Facial Fracture (ED) Is patient prescribed a controlled substance at d/c from ED?: No Referrals: None,Stated [REFERRING] - 1-2 days Time of Disposition: 23:55
--- NOTE | 2024-04-12 23:32 | XR ---
EXAMINATION TYPE: XR chest 1V DATE OF EXAM: 04/12/2024 COMPARISON: Chest x-ray December 05, 2023 CLINICAL INDICATION: Male, 78 years old with history of fall; TECHNIQUE: Single frontal view of the chest is obtained. FINDINGS: Chronic parenchymal changes bilaterally are present including mild bibasilar linear scarri ng and/or atelectasis. There is no suspicious new focal air space opacity, pleural effusion, or pneum othorax seen. Cardiomegaly with atherosclerotic thoracic aorta is redemonstrated. Degenerative change bilateral glenohumeral joints again seen. IMPRESSION: Chronic changes and cardiomegaly without acute pulmonary process. [facility], , 04/12/2024 11:30 PM
--- NOTE | 2024-04-12 23:33 | XR ---
EXAMINATION TYPE: XR pelvis AP view DATE OF EXAM: 04/12/2024 11:25 PM COMPARISON: None. CLINICAL INDICATION: Male, 78 years old with history of fall, TECHNIQUE: A single AP view of the pelvis is obtained. FINDINGS: There is no acute displaced fracture evident in the pelvis. Pubic symphysis is intact. Sub optimal evaluation of the sacroiliac joints due to large body habitus. Metallic hip prosthesis bilate ral hips is partially imaged. Some overlying arterial vascular calcification is present bilaterally. IMPRESSION: There is no acute fracture or dislocation in the pelvis. [facility], , 04/12/2024 11:31 PM
--- NOTE | 2024-04-12 23:40 | CT ---
EXAMINATION TYPE: CT brain cspine wo con, CT facial bones wo con DATE OF EXAM: 04/12/2024 COMPARISON: NONE HISTORY: fall head lac on thinners. unknown LOC. Code coag CT DLP: 1016.3 (accession [id number]), 0 (accession [id number]) mGycm. Automated Exposure Control for Dos e Reduction was Utilized. TECHNIQUE: CT scan of the head, facial bones, and cervical spine are performed without contrast. FINDINGS: Exam slightly suboptimal due to patient motion. There is no acute intracranial hemorrhage or midline shift identified. Moderate ventricular and sulca l prominence. Mild low attenuation in the periventricular white matter. The calvarium is intact. No acute displaced fracture in the mandible. Temporomandibular joints are maintained bilaterally. Zyg omatic arches are intact bilaterally. There are acute comminuted displaced fractures of the nasal sep partha with associated paranasal opacification or hemorrhage. Orbital floors and rust are intact. Bilat eral aphakia is seen. Intraconal fat is preserved. The pterygoid plates are intact. There is mild opa cification of the anterior ethmoid sinuses bilaterally otherwise paranasal sinuses are clear. Lack of dentition is noted. Cervical spine is visualized in its entirety from C1 through upper thoracic levels and demonstrates l evoconvex scoliosis without evidence of acute fracture or dislocation. Prevertebral soft tissue appe ars within normal limits. The C1-C2 articulation is within normal limits on the coronal images. Cheryl tebral body heights are maintained. Moderate to advanced disc space narrowing at C5-C6 and C6-C7 leve ls is seen. Thyroid gland appears within normal limits. Upper lungs show significant emphysematous ch jewel without pneumothorax IMPRESSION: 1. There is no acute fracture or dislocation evident in the cervical spine. 2. No acute intracranial hemorrhage or midline shift is seen. 3. Acute comminuted displaced fractures of the nasal septum with associated paranasal hemorrhage. No additional acute displaced facial bone fracture. [facility], , 04/12/2024 11:38 PM
[2024-04-13 00:16] VITALS: BP 121/78; PULSE 82; TEMP 97.5
== END 2024-04-13 00:19 | disposition home or self-care (01) ==
LOC: EC 22:50
DX: S02.2XXA Fracture of nasal bones, initial encounter for closed fracture (principal); S01.81XA Laceration without foreign body of other part of head, initial encounter; F10.129 Alcohol abuse with intoxication, unspecified; Z87.891 Personal history of nicotine dependence; Z88.0 Allergy status to penicillin; W18.30XA Fall on same level, unspecified, initial encounter
CPT/HCPCS: 70450; 70486; 71045; 72125; 72170; 99284

== ENCOUNTER → 2024-05-06 | Outpatient (CLI) | payer MEDICARE ==
[2024-05-06 16:11] LABS: Appearance,Urine Clear (Clear); Bilirubin,Urine Negative (Negative); Blood,Urine Negative (Negative); Color,Urine Colorless; Glucose,Urine (UA) 4+ (Negative); Ketones,Urine Negative (Negative); Leukocyte Esterase,Urine Negative (Negative); Nitrite,Urine Negative (Negative); PH, Urine 5.5 (5.0-8.0); Protein,Urine Trace (Negative); Specific Gravity,Urine 1.024 (1.001-1.035); Urobilinogen,Urine <2.0 mg/dL (<2.0)
--- NOTE | 2024-05-06 16:23 | US ---
EXAMINATION TYPE: US kidneys/renal and bladder DATE OF EXAM: 05/06/2024 COMPARISON: NONE CLINICAL INDICATION: Male, 78 years old with history of N18.9 CHRONIC KIDNEY DISEASE, UNSPECIFIED; TECHNIQUE: Grayscale imaging of the bilateral kidneys and urinary bladder: FINDINGS: EXAM MEASUREMENTS: Right Kidney: 10.7 x 5.2 x 5.5 cm Left Kidney: 11.5 x 5.7 x 5.1 cm Right Kidney: 2 cysts with largest measuring 4.8cm superior pole Left Kidney: 2 cysts with largest measuring 2.6cm inferior pole Bladder: wnl Bilateral Jets seen: no There is no evidence for hydronephrosis at this point in time. No nephrolithiasis is seen. Increased cortical echogenicity is present bilaterally with a few simple-appearing thin-walled cysts marked by technologist bilaterally.. The urinary bladder is not greatly distended. IMPRESSION: Evidence of chronic medical renal disease. No hydronephrosis is noted bilaterally. [facility], , 05/06/2024 4:21 PM
[2024-05-06 19:01] LABS: HCT 39.1 % (39.6-50.0); MCHC 30.7 g/dL (32.0-37.0); MCV 94.4 FL (80.0-97.0); Mean Platelet Volume 12.3 FL (9.5-12.2); NRBC Per 100 WBC 0 X 10*3/uL (0.00-0.01); Platelet Count 219 X 10*3/uL (140-440); RBC 4.14 X 10*6/uL (4.40-5.60); RDW 16.7 % (11.5-14.5); WBC 9.26 X 10*3/uL (4.50-10.00)
[2024-05-07 02:03] LABS: Total Protein 24 Hour,Urine 627.8 mg/24Hr (0.0-165.0); Total Volume 24 Hour,Urine 2150 mL
[2024-05-07 03:57] LABS: ALT 30 U/L (10-49); AST 17 U/L (14-35); Albumin 4.1 g/dL (3.8-4.9); Albumin/Globulin Ratio 1.78 Ratio (1.60-3.17); Alkaline Phosphatase 75 U/L (41-126); BUN/Creat Ratio 13.14 Ratio (12.00-20.00); Blood Urea Nitrogen 18.4 mg/dL (9.0-27.0); Calcium 9.3 mg/dL (8.7-10.3); Carbon Dioxide 23.3 mmol/L (21.6-31.8); Chloride 106 mmol/L (96-109); Globulin 2.3 g/dL (1.6-3.3); Glucose 245 mg/dL (70-110); Magnesium 2.1 mg/dL (1.5-2.4); Phosphorus 3.9 mg/dL (2.4-5.1); Potassium 4.8 mmol/L (3.5-5.5); Sodium 144 mmol/L (135-145); Total Bilirubin 0.2 mg/dL (0.3-1.2); Total Protein 6.4 g/dL (6.2-8.2)
== END | disposition home or self-care (01) ==
LOC: RADUSWWP 15:06
PROVIDERS: ATTEND Internal Medicine
DX: N18.9 Chronic kidney disease, unspecified (principal); N28.1 Cyst of kidney, acquired
CPT/HCPCS: 76770; 80053; 81003; 81050; 83735; 84100; 84156; 85027

== ENCOUNTER 2024-10-16 01:10 | Inpatient (IN) | payer MEDICARE ==
--- NOTE | 2024-10-16 01:15 | ED ---
SOB HPI - General Stated Complaint: GIL Time Seen by Provider: 10/16/24 01:12 Source: RN notes reviewed, old records reviewed Mode of arrival: EMS Limitations: altered mental status - History of Present Illness Initial Comments: This is a 79-year-old male to the ER for evaluation patient presents today for severe shortness of breath no diagnosis of pneumonia. Patient feels like his heart is racing feels like he does have a fever. Cough congestion chest pain MD Complaint: shortness of breath, cough -: days(s) Severity: severe Severity scale (1-10): 10 Quality: dull Consistency: constant Improves With: nothing Known History Of: COPD, asthma, congestive heart failure Context: recent URI, recent illness Associated Symptoms: chest pain, pain with inspiration, fever, cough Treatments Prior to Arrival: none - Related Data Home Medications Medication Instructions Recorded Confirmed Budesonide-Formot 160-4.5 Mcg 2 puff INHALATION RT-BID 07/17/16 10/16/24 [Symbicort 160-4.5 Mcg Inhaler] Famotidine [Pepcid] 20 mg PO BID 11/26/23 10/16/24 Zolpidem [Ambien] 5 mg PO HS PRN 11/26/23 10/16/24 Apixaban [Eliquis] 5 mg PO BID 04/02/24 10/16/24 Empagliflozin [Jardiance] 10 mg PO DAILY 04/02/24 10/16/24 Furosemide [Lasix] 20 mg PO DAILY 04/02/24 10/16/24 Amiodarone [Cordarone] 100 mg PO DAILY 09/22/24 10/16/24 Atorvastatin [Lipitor] 40 mg PO HS 09/22/24 10/16/24 Ferrous Sulfate [Iron (65 MG 325 mg PO DAILY 09/22/24 10/16/24 Elemental)] Insulin Aspart [NovoLOG Flexpen] See Protocol SQ AC-TID 09/22/24 10/16/24 Metoprolol Tartrate [Lopressor] 12.5 mg PO BID 09/22/24 10/16/24 Tamsulosin [Flomax] 0.4 mg PO DAILY 09/22/24 10/16/24 Vitamin B(Unknown) 1 tab PO DAILY 09/22/24 10/16/24 predniSONE 15 mg PO Q2D 09/22/24 10/16/24 Azithromycin [Zithromax] 250 mg PO MOWEFR 10/16/24 10/16/24 Insulin Glargine,Hum.rec.anlog 15 units SQ HS 10/16/24 10/16/24 [Lantus Solostar Pen] predniSONE [Deltasone] 20 mg PO Q2D 10/16/24 10/16/24 Previous Rx's Medication Instructions Recorded Ipratropium-Albuterol Nebulize 3 ml INHALATION RT-Q2H PRN each 09/27/24 [Duoneb 0.5 mg-3 mg/3 ml Soln] Ipratropium-Albuterol Nebulize 3 ml INHALATION RT-QID 30 Days 09/27/24 [Duoneb 0.5 mg-3 mg/3 ml Soln] #100 each Allergies Allergy/AdvReac Type Severity Reaction Status Date / Time Penicillins Allergy Rash/Hives Verified 10/16/24 14:17 Review of Systems ROS Statement: Those systems with pertinent positive or pertinent negative responses have been documented in the HPI. ROS Other: All systems not noted in ROS Statement are negative. Past Medical History Past Medical History: Atrial Fibrillation, Chest Pain / Angina, COPD, Diabetes Mellitus, Hyperlipidemia, Hypertension, Osteoarthritis (OA), Pneumonia, Prostate Disorder, Supraventricular Tachycardia (SVT) Additional Past Medical History / Comment(s): Chronic hypoxic respiratory failure with home oxygen pt mostly just wears at night, past acute hypoxic respiratory failure requiring bipap, newly diagnosed , BPH, UTI Last Myocardial Infarction Date:: 2008 History of Any Multi-Drug Resistant Organisms: None Reported Past Surgical History: Back Surgery, Heart Catheterization, Hernia Repair, Joint Replacement, Orthopedic Surgery Additional Past Surgical History / Comment(s): microlaryngoscopy w/ lt vocal cord bx-neg, bronch-lung bx-neg, lt inguinal hernia, low back surgery, bilateral total hip arthroplasties, bilateral cataracts removed., colonoscopy, cataract surgery bilateral Past Anesthesia/Blood Transfusion Reactions: No Reported Reaction Past Psychological History: No Psychological Hx Reported Additional Psychological History / Comment(s): Pt lives in own home with his frank that has 3 steps into house has 1 cat, 1 dog. 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 Past heavy etoh use but quit heavy drinking 20 years ago now only drinks once or twice a week when he plays cards and less than 14 drinks/week. Past Drug Use History: None Reported - Past Family History Mother Family Medical History: COPD, Diabetes Mellitus Father Family Medical History: COPD, Diabetes Mellitus Brother(s) Family Medical History: Cancer Additional Family Medical History / Comment(s): leukemia General Exam General appearance: alert, in no apparent distress, anxious Head exam: Present: atraumatic, normocephalic, normal inspection Eye exam: Present: normal appearance, PERRL, EOMI. Absent: scleral icterus, conjunctival injection, periorbital swelling ENT exam: Present: normal exam, mucous membranes dry Neck exam: Present: normal inspection. Absent: tenderness, meningismus, lymphadenopathy Respiratory exam: Present: respiratory distress, wheezes, accessory muscle use, decreased breath sounds, prolonged expiratory. Absent: rales, rhonchi, stridor Cardiovascular Exam: Present: normal rhythm, tachycardia, normal heart sounds. Absent: systolic murmur, diastolic murmur, rubs, gallop, clicks GI/Abdominal exam: Present: soft, normal bowel sounds. Absent: distended, tenderness, guarding, rebound, rigid Extremities exam: Present: normal inspection, full ROM, normal capillary refill. Absent: tenderness, pedal edema, joint swelling, calf tenderness Back exam: Present: normal inspection Neurological exam: Present: alert, oriented X3, CN II-XII intact Psychiatric exam: Present: normal affect, normal mood Skin exam: Present: warm, dry, intact, normal color. Absent: rash Course Vital Signs 10/16/24 10/16/24 10/16/24 01:16 01:21 02:03 Temperature 99.9 F H Pulse Rate 120 H 141 H Respiratory 26 H 30 H Rate Blood Pressure 160/68 O2 Sat by Pulse 94 L Oximetry 10/16/24 10/16/24 10/16/24 02:20 04:00 05:07 Temperature 98.0 F Pulse Rate 136 H 107 H 98 Respiratory 24 Rate Blood Pressure 110/61 O2 Sat by Pulse 93 L Oximetry 10/16/24 10/16/24 10/16/24 06:41 07:23 07:57 Temperature 97.7 F Pulse Rate 96 89 96 Respiratory 24 17 25 H Rate Blood Pressure 115/69 100/48 99/58 O2 Sat by Pulse 95 94 L 94 L Oximetry 10/16/24 10/16/24 10/16/24 08:07 08:21 08:48 Temperature Pulse Rate 97 97 87 Respiratory 20 Rate Blood Pressure 102/54 O2 Sat by Pulse 94 L Oximetry 10/16/24 10/16/24 10/16/24 10:14 11:14 11:45 Temperature Pulse Rate 84 87 92 Respiratory 24 22 Rate Blood Pressure 102/50 93/52 O2 Sat by Pulse 95 96 Oximetry 10/16/24 10/16/24 10/16/24 11:56 13:00 14:32 Temperature 97.8 F Pulse Rate 93 76 67 Respiratory 24 Rate Blood Pressure 110/58 O2 Sat by Pulse 97 Oximetry 10/16/24 10/16/24 10/16/24 14:45 15:55 17:23 Temperature Pulse Rate 68 70 68 Respiratory 18 25 H Rate Blood Pressure 92/47 116/57 O2 Sat by Pulse 98 98 Oximetry 10/16/24 10/16/24 10/16/24 18:23 18:32 18:37 Temperature 98.0 F Pulse Rate 64 69 70 Respiratory 24 Rate Blood Pressure 107/60 O2 Sat by Pulse 98 Oximetry 10/16/24 10/17/24 10/17/24 22:00 00:34 03:00 Temperature Pulse Rate 68 59 L 66 Respiratory 18 18 20 Rate Blood Pressure 116/58 111/59 109/66 O2 Sat by Pulse 98 96 95 Oximetry 10/17/24 10/17/24 10/17/24 06:03 07:51 07:59 Temperature Pulse Rate 69 72 84 Respiratory 18 18 Rate Blood Pressure 115/58 113/52 O2 Sat by Pulse 96 96 Oximetry 10/17/24 10/17/24 10/17/24 08:00 08:10 09:00 Temperature Pulse Rate 83 80 80 Respiratory 24 24 Rate Blood Pressure 184/57 123/60 O2 Sat by Pulse 96 96 Oximetry 10/17/24 10/17/24 10/17/24 10:00 11:31 11:41 Temperature Pulse Rate 74 68 66 Respiratory 24 Rate Blood Pressure 147/71 O2 Sat by Pulse 96 Oximetry 10/17/24 10/17/24 10/17/24 13:58 14:52 15:04 Temperature 98.0 F Pulse Rate 71 70 72 Respiratory 18 Rate Blood Pressure 124/62 O2 Sat by Pulse 99 Oximetry 10/17/24 16:18 Temperature Pulse Rate 78 Respiratory 18 Rate Blood Pressure 118/76 O2 Sat by Pulse 95 Oximetry - Reevaluation(s) Reevaluation #1: 10/16/24 01:58 Medical records reviewed Reevaluation #2: 10/16/24 02:58 Symptoms continue to improve here in the ER Reevaluation #3: 10/16/24 02:58 Patient informed of results questions answered Reevaluation #4: Was pt. sent in by a medical professional or institution (, [facility]UEL, SENIOR ADULTS DIRECTOR, urgent care, hospital, or penitentiary...) When possible be specific @ -no Did you speak to anyone other than the patient for history (EMS, parent, family, police, friend...)? What history was obtained from this source @ -no Did you review nursing and triage notes (agree or disagree)? Why? @ -agree Are old charts reviewed (outside hosp., previous admission, EMS record, old EKG, old radiological studies, urgent care reports/EKG's, penitentiary records)? Repo rt findings @ -yes Differential Diagnosis (chest pain, altered mental status, abdominal pain women, abdominal pain men, vaginal bleeding, weakness, fever, dyspnea, syncope, headache, dizziness, GI bleed, back pain, seizure, CVA, palpatations, mental health, musculoskeletal)? @ -prior EKG interpreted by me (3pts min.). @ -yes X-rays interpreted by me (1pt min.). @ -yes positive CHF positive pneumonia CT interpreted by me (1pt min.). @ -no U/S interpreted by me (1pt. min.). @ -no What testing was considered but not performed or refused? (CT, X-rays, U/S, labs)? Why? @ -none What meds were considered but not given or refused? Why? @ -none Did you discuss the management of the patient with other professionals (professionals i.e. MANUEL Contreras, SENIOR ADULTS DIRECTOR, lab, RT, psych nurse, psychiatric social worker supervisor, stock analyst, teacher, surveillance officer, corrections caseworker)? Give summary @ -no Was smoking cessation discussed for >3mins.? @ -no Was critical care preformed (if so, how long)? @ -[id number] Were there social determinants of health that impacted care today? How? (Homelessness, low income, unemployed, alcoholism, drug addiction, transportation, low edu. Level, literacy, decrease access to med. care, shelter, rehab)? @ -none Was there de-escalation of care discussed even if they declined (Discuss DNR or withdrawal of care, Hospice)? DNR status @ -no What co-morbidities impacted this encounter? (DM, HTN, Smoking, COPD, CAD, Cancer, CVA, ARF, Chemo, Hep., AIDS, mental health diagnosis, sleep apnea, morbid obesity)? @ -none Was patient admitted / discharged? Hospital course, mention meds given and route, prescriptions, significant lab abnormalities, going to OR and other pertinent info. @ - 79 male to the ER for evaluation patient will be admitted for fever pneumonia sepsis COPD and CHF exacerbation with respiratory failure and hypoxia. Admitted fever pneumonia sepsis COPD and CHF Undiagnosed new problem with uncertain prognosis? @ -no Drug Therapy requiring intensive monitoring for toxicity (Heparin, Nitro, Insulin, Cardizem)? @ -no Were any procedures done? @ -no Diagnosis/symptom? @ - Acute, or Chronic, or Acute on Chronic? @ -Acute Uncomplicated (without systemic symptoms) or Complicated (systemic symptoms)? @ -Complicated Side effects of treatment? @ -no Exacerbation, Progression, or Severe Exacerbation? @ -exacerbation Poses a threat to life or bodily function? How? (Chest pain, [place], [place], pneumonia, PE, COPD, DKA, ARF, appy, cholecystitis, CVA, Diverticulitis, Homicidal, Suicidal, threat to staff... and all critical care pts) @ -yes respiratory distress Reevaluation #5: Differential Chest Pain: Stable Angina, Unstable Angina, STEMI, NSTEMI Aortic Dissection, Pneumothorax, Musculoskeletal, Esophageal Spasm GERD, Cholecystitis, Pancreatitis, Zoster, this is not meant to be an all-inclusive list. Differential Fever: Pneumonia, viral URI, endocarditis, myocarditis, pericarditis, otitis, sinusitis, peritonsillar Abscess, retropharyngeal Abscess, epiglottitis, peritonitis, appendicitis, Misty cystitis, diverticulitis, hepatitis, colitis, UTI, PID, TOA, pyelonephritis, prostatitis, epididymitis, meningitis, encephalitis, pulmonary embolism, CVA, thyroid storm, pancreatitis, adrenal crisis, cavernous sinus thrombosis, this is not meant to be an all-inclusive list. Differential Dyspnea: Coronary syndrome, arrhythmia, tamponade, asthma, COPD, pulmonary embolism, pneumonia, pneumothorax, pulmonary effusion, anaphylaxis, diabetic ketoacidosis, flailed chest, pulmonary contusion, diaphragmatic rupture, anemia, neuromus cular, this is not meant to be an all-inclusive list. - Consultations Consultation #1: Spoke with [facility] who agrees to admit this patient Medical Decision Making - Medical Decision Making 79 male to the ER for evaluation patient will be admitted for fever pneumonia sepsis COPD and CHF exacerbation with respiratory failure and hypoxia. - Lab Data Result diagrams: 10/22/24 06:10 10/22/24 06:10 Lab Results 10/16/24 10/16/24 10/16/24 Range/Units 01:44 01:44 01:44 WBC 5.65 (4.50-10.00) 10*3/uL RBC 4.13 L (4.40-5.60) 10*6/uL Hgb 12.2 L (13.0-17.0) g/dL Hct 38.1 L (39.6-50.0) % MCV 92.3 (80.0-97.0) fL MCH 29.5 (27.0-32.0) pg MCHC 32.0 (32.0-37.0) g/dL Plt Count 189 (140-440) 10*3/uL MPV 10.6 (9.5-12.2) fL Immature Gran % (Auto) 0.9 % Neutrophils % 88.2 % Lymphocytes % 8.0 % Monocytes % 2.5 % Eosinophils % 0.2 % Basophils % 0.2 % Immature Gran # 0.05 H (0.00-0.04) 10*3/uL Neutrophils # 4.99 (1.80-7.70) 10*3/uL Lymphocytes # 0.45 L (0.90-5.00) 10*3/uL Monocytes # 0.14 L (0.20-1.00) 10*3/uL Eosinophils # 0.01 L (0.04-0.35) 10*3/uL Basophils # 0.01 (0.00-0.10) 10*3/uL PT 10.6 (10.0-12.5) sec INR 1.0 (<1.2) APTT 19.9 L (22.0-30.0) sec Sodium 137 (137-145) mmol/L Potassium 4.2 (3.5-5.1) mmol/L Chloride 104 (98-107) mmol/L Carbon Dioxide 22 (22-30) mmol/L Anion Gap 11 mmol/L BUN 36 H (9-20) mg/dL Creatinine 1.20 (0.66-1.25) mg/dL Est GFR (CKD-EPI)AfAm 67 (>60 ml/min/1.73 sqM) Est GFR (CKD-EPI)NonAf 58 (>60 ml/min/1.73 sqM) Glucose 140 H (74-99) mg/dL Estimated Ave Glu mg/dL mg/dL Hemoglobin A1c (<=6.0) % Lactic Ac Sepsis Rflx Plasma Lactic Acid Jakub (0.7-2.0) mmol/L Calcium 9.4 (8.4-10.2) mg/dL Magnesium 1.8 (1.6-2.3) mg/dL Total Bilirubin 0.8 (0.2-1.3) mg/dL AST 27 (17-59) U/L ALT 31 (4-49) U/L Alkaline Phosphatase 63 (38-126) U/L Troponin I (0.000-0.034) ng/mL NT-Pro-B Natriuret Pep 416 pg/mL Total Protein 6.0 L (6.3-8.2) g/dL Albumin 3.7 (3.5-5.0) g/dL Procalcitonin (0.02-0.50) ng/mL 10/16/24 10/16/24 10/16/24 Range/Units 01:44 01:44 01:44 WBC (4.50-10.00) 10*3/uL RBC (4.40-5.60) 10*6/uL Hgb (13.0-17.0) g/dL Hct (39.6-50.0) % MCV (80.0-97.0) fL MCH (27.0-32.0) pg MCHC (32.0-37.0) g/dL Plt Count (140-440) 10*3/uL MPV (9.5-12.2) fL Immature Gran % (Auto) % Neutrophils % % Lymphocytes % % Monocytes % % Eosinophils % % Basophils % % Immature Gran # (0.00-0.04) 10*3/uL Neutrophils # (1.80-7.70) 10*3/uL Lymphocytes # (0.90-5.00) 10*3/uL Monocytes # (0.20-1.00) 10*3/uL Eosinophils # (0.04-0.35) 10*3/uL Basophils # (0.00-0.10) 10*3/uL PT (10.0-12.5) sec INR (<1.2) APTT (22.0-30.0) sec Sodium (137-145) mmol/L Potassium (3.5-5.1) mmol/L Chloride (98-107) mmol/L Carbon Dioxide (22-30) mmol/L Anion Gap mmol/L BUN (9-20) mg/dL Creatinine (0.66-1.25) mg/dL Est GFR (CKD-EPI)AfAm (>60 ml/min/1.73 sqM) Est GFR (CKD-EPI)NonAf (>60 ml/min/1.73 sqM) Glucose (74-99) mg/dL Estimated Ave Glu mg/dL mg/dL Hemoglobin A1c (<=6.0) % Lactic Ac Sepsis Rflx Plasma Lactic Acid Jakub 3.3 H* (0.7-2.0) mmol/L Calcium (8.4-10.2) mg/dL Magnesium (1.6-2.3) mg/dL Total Bilirubin (0.2-1.3) mg/dL AST (17-59) U/L ALT (4-49) U/L Alkaline Phosphatase (38-126) U/L Troponin I 0.025 (0.000-0.034) ng/mL NT-Pro-B Natriuret Pep pg/mL Total Protein (6.3-8.2) g/dL Albumin (3.5-5.0) g/dL Procalcitonin 0.78 H (0.02-0.50) ng/mL 10/16/24 10/16/24 Range/Units 01:44 02:46 WBC (4.50-10.00) 10*3/uL RBC (4.40-5.60) 10*6/uL Hgb (13.0-17.0) g/dL Hct (39.6-50.0) % MCV (80.0-97.0) fL MCH (27.0-32.0) pg MCHC (32.0-37.0) g/dL Plt Count (140-440) 10*3/uL MPV (9.5-12.2) fL Immature Gran % (Auto) % Neutrophils % % Lymphocytes % % Monocytes % % Eosinophils % % Basophils % % Immature Gran # (0.00-0.04) 10*3/uL Neutrophils # (1.80-7.70) 10*3/uL Lymphocytes # (0.90-5.00) 10*3/uL Monocytes # (0.20-1.00) 10*3/uL Eosinophils # (0.04-0.35) 10*3/uL Basophils # (0.00-0.10) 10*3/uL PT (10.0-12.5) sec INR (<1.2) APTT (22.0-30.0) sec Sodium (137-145) mmol/L Potassium (3.5-5.1) mmol/L Chloride (98-107) mmol/L Carbon Dioxide (22-30) mmol/L Anion Gap mmol/L BUN (9-20) mg/dL Creatinine (0.66-1.25) mg/dL Est GFR (CKD-EPI)AfAm (>60 ml/min/1.73 sqM) Est GFR (CKD-EPI)NonAf (>60 ml/min/1.73 sqM) Glucose (74-99) mg/dL Estimated Ave Glu mg/dL 206 mg/dL Hemoglobin A1c 8.8 H (<=6.0) % Lactic Ac Sepsis Rflx Y Plasma Lactic Acid Jakub (0.7-2.0) mmol/L Calcium (8.4-10.2) mg/dL Magnesium (1.6-2.3) mg/dL Total Bilirubin (0.2-1.3) mg/dL AST (17-59) U/L ALT (4-49) U/L Alkaline Phosphatase (38-126) U/L Troponin I (0.000-0.034) ng/mL NT-Pro-B Natriuret Pep pg/mL Total Protein (6.3-8.2) g/dL Albumin (3.5-5.0) g/dL Procalcitonin (0.02-0.50) ng/mL - EKG Data -: EKG Interpreted by Me (EKG is sinus tachycardia 119 MS 180 QRS 81 QTc 383) - Radiology Data Radiology results: report reviewed (Chest x-ray positive for pneumonia and CHF), image reviewed Critical Care Time Critical Care Time: Yes Total Critical Care Time: 31 Disposition Clinical Impression: COPD exacerbation, Pneumonia, Renal insufficiency, Acute pulmonary edema, Community acquired pneumonia, Acute exacerbation of chronic obstructive airways disease, Acute tracheobronchitis, Sepsis, Fever Disposition: ADMITTED IP TO THIS [facility] Condition: Serious Is patient prescribed a controlled substance at d/c from ED?: No Time of Disposition: 03:00
[2024-10-16] MEDS: ACETAMINOPHEN TAB 500 MG TAB PO STA (01:33)
[2024-10-16] MEDS: IBUPROFEN 800 MG TAB PO STA (01:33)
[2024-10-16] MEDS: IPRATROPIUM-ALBUTEROL 3 ML NEB INHALATION STA (02:03)
[2024-10-16 02:07] LABS: Basophils # (A) 0.01 10*3/uL (0.00-0.10); Basophils % (A) 0.2 %; Eosinophils # (A) 0.01 10*3/uL (0.04-0.35); Eosinophils % (A) 0.2 %; HCT 38.1 % (39.6-50.0); HGB 12.2 g/dL (13.0-17.0); Lymphocytes # (A) 0.45 10*3/uL (0.90-5.00); Lymphocytes % (A) 8.0 %; MCH 29.5 pg (27.0-32.0); MCHC 32.0 g/dL (32.0-37.0); MCV 92.3 fL (80.0-97.0); Monocytes # (A) 0.14 10*3/uL (0.20-1.00); Monocytes % (A) 2.5 %; Neutrophils # (A) 4.99 10*3/uL (1.80-7.70); Neutrophils % (A) 88.2 %; Platelet Count 189 10*3/uL (140-440); RBC 4.13 10*6/uL (4.40-5.60); RDW 16.4 % (11.5-14.5); WBC 5.65 10*3/uL (4.50-10.00)
[2024-10-16 02:33] LABS: ALT 31 U/L (4-49); AST 27 U/L (17-59); African American GFR (CKD) 67 (>60 ml/min/1.73 sqM); Albumin 3.7 g/dL (3.5-5.0); Alkaline Phosphatase 63 U/L (38-126); Anion Gap 11 mmol/L; Blood Urea Nitrogen 36 mg/dL (9-20); Calcium 9.4 mg/dL (8.4-10.2); Carbon Dioxide 22 mmol/L (22-30); Chloride 104 mmol/L (98-107); Glucose 140 mg/dL (74-99); Magnesium 1.8 mg/dL (1.6-2.3); Non-African American GFR(CKD) 58 (>60 ml/min/1.73 sqM); Potassium 4.2 mmol/L (3.5-5.1); Sodium 137 mmol/L (137-145); Total Protein 6.0 g/dL (6.3-8.2)
[2024-10-16] MEDS: AZITHROMYCIN 500 MG in SODIUM CHLORIDE 0.9% 250 ML IVPB STA (02:34)
[2024-10-16 02:38] LABS: INR 1.0 (<1.2); Prothrombin Time 10.6 sec (10.0-12.5)
[2024-10-16 02:41] LABS: NT-Pro-B-Type Natriuretic Pept 416 pg/mL
[2024-10-16] MEDS ORDERED: NALOXONE 0.4 MG/ML 1 ML VIAL IV PRN (02:55)
[2024-10-16] MEDS ORDERED: ACETAMINOPHEN TAB 325 MG TAB PO PRN (02:55)
[2024-10-16] MEDS ORDERED: MORPHINE SULFATE 4 MG/ML SYRINGE IV PRN (02:55)
[2024-10-16] MEDS ORDERED: IBUPROFEN 400 MG TAB PO PRN (02:55)
[2024-10-16 03:16] LABS: Partial Thromboplastin Time 19.9 sec (22.0-30.0)
[2024-10-16] MEDS: SODIUM CHLORIDE 0.9% 1,000 ML IV ONE (03:51)
[2024-10-16] MEDS: SODIUM CHLORIDE 0.9% 500 ML 500 ML IV ONE (03:52)
--- NOTE | 2024-10-16 04:12 | XR ---
EXAM: XR Chest, 1 View CLINICAL HISTORY: Sob TECHNIQUE: Frontal view of the chest. COMPARISON: 10/12/2024 FINDINGS: Lungs: Interval increase in patchy opacities throughout the right mid to lower lung zone with questionable minimal subsegmental changes now identified at the left lung base. Pleural space: The right costophrenic margin is poorly delineated but thought to be stable. No left-sided pleural effusion . No pneumothorax. Heart: The cardiac silhouette is thought to be stable. Mediastinum: The mediastinal contours are stable. The trachea is midline. Bones/joints: Degenerative changes of the right shoulder. No acute osseous abnormality. IMPRESSION: Interval increase in patchy opacities throughout the right mid to lower lung zone with questionable minimal subsegmental changes now identified at the left lung base. Differential consideration includes asymmetric edema or bibasilar pneumonia.
[2024-10-16] MEDS: ALBUTEROL NEBULIZED 2.5 MG/3 ML INHALATION SCH (05:05)
[2024-10-16] MEDS: SODIUM CHLORIDE 0.9% 1,000 ML IV SCH (05:06)
[2024-10-16] MEDS: SYMBICORT 160-4.5 MCG INHALER INHALATION SCH (08:06)
[2024-10-16] MEDS: IPRATROPIUM-ALBUTEROL 3 ML NEB INHALATION SCH (08:06)
[2024-10-16] MEDS: AZITHROMYCIN 500 MG in SODIUM CHLORIDE 0.9% 250 ML IVPB SCH (08:43)
[2024-10-16] MEDS: ONDANSETRON 4 MG/2 ML VIAL IVP PRN (10:04)
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
[2024-10-16 11:14] LABS: Magnesium 1.6 mg/dL (1.6-2.3)
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
[2024-10-16] MEDS: DAPAGLIFLOZIN PROPANEDIOL 10 MG TABLET PO SCH (12:04)
[2024-10-16] MEDS: METOPROLOL TARTRATE 12.5 MG TAB PO SCH (12:04)
[2024-10-16] MEDS: APIXABAN 5 MG TAB PO SCH (12:04)
[2024-10-16] MEDS: FUROSEMIDE 20 MG TAB PO SCH (12:05)
[2024-10-16] MEDS: methylPREDNISolone SOD SUCCI 125 MG/2 ML VIAL IV SCH (12:10)
[2024-10-16 12:59] LABS: Glucose,Whole Blood 326 mg/dL (70-110)
[2024-10-16 13:00] LABS: T4, Free (Free Thyroxine) 2.03 ng/dL (0.78-2.19)
--- NOTE | 2024-10-16 15:11 | CA ---
Transthoracic Echo Report Name: Ludwin Golden Age: 79 Gender: M : 1945 Exam Date: 10/16/2024 11:15 Exam Location: [facility] Ht (in): 68 Wt (lb): 190 Ordering Physician: Skyler Hernandez MD ([id number]) Attending/Referring Phys: Regrinder Rashmi Akins RDCS Procedure CPT: Indications: severe aortic stenosis Cardiac Hx: Technical Quality: Fair Contrast 1: Total Dose (mL): Contrast 2: Total Dose (mL): MEASUREMENTS (Male / Female) Normal Values 2D ECHO LV Diastolic Diameter PLAX 4.4 cm 4.2 - 5.9 / 3.9 - 5.3 cm LV Systolic Diameter PLAX 2.5 cm IVS Diastolic Thickness 1.4 cm 0.6 - 1.0 / 0.6 - 0.9 cm LVPW Diastolic Thickness 1.3 cm 0.6 - 1.0 / 0.6 - 0.9 cm LV Relative Wall Thickness 0.6 RV Internal Dim ED PLAX 2.5 cm LVOT Diameter 2.0 cm LA Systolic Diameter LX 3.0 cm 3.0 - 4.0 / 2.7 - 3.8 cm LV Diastolic Volume MOD BP 69.6 cm??? 67 - 155 / 56 - 104 cm??? LV Systolic Volume MOD BP 29.3 cm??? 22 - 58 / 19 - 49 cm??? LV Ejection Fraction MOD BP 57.9 % >= 55 % LV Cardiac Index MOD BP 1806.8 cm???/min???m??? LV Diastolic Volume MOD 4C 69.4 cm??? LV Systolic Volume MOD 4C 35.1 cm??? LV Ejection Fraction MOD 4C 49.4 % LV Cardiac Index MOD 4C 1535.7 cm???/min???m??? LV Diastolic Length 4C 8.0 cm LV Systolic Length 4C 7.0 cm LV Diastolic Volume MOD 2C 68.2 cm??? LV Systolic Volume MOD 2C 24.3 cm??? LV Ejection Fraction MOD 2C 64.3 % LV Cardiac Index MOD 2C 1964.1 cm???/min???m??? LV Diastolic Length 2C 8.2 cm LV Systolic Length 2C 6.8 cm LA Volume 56.1 cm??? 18 - 58 / 22 - 52 cm??? LA Volume Index 27.3 cm???/m??? 16 - 28 cm???/m??? M-MODE Aortic Root Diameter MM 3.7 cm LA Systolic Diameter MM 3.5 cm LA Ao Ratio MM 0.9 AV Cusp Separation MM 1.0 cm DOPPLER AV Peak Velocity 399.1 cm/s AV Peak Gradient 63.7 mmHg AV Mean Velocity 298.6 cm/s AV Mean Gradient 40.0 mmHg AV Velocity Time Integral 73.8 cm AI Peak Velocity 279.7 cm/s AI Peak Gradient 31.3 mmHg AI Pressure Half Time 921.6 ms LVOT Peak Velocity 127.1 cm/s LVOT Peak Gradient 6.5 mmHg LVOT Velocity Time Integral 25.7 cm LVOT Stroke Volume 77.1 cm??? LVOT Stroke Volume Index 38.5 ml/m??? LVOT Cardiac Index 3451.7 cm???/min???m??? AV Area Cont Eq vti 1.0 cm??? AV Area Cont Eq pk 1.0 cm??? MV Area PHT 3.0 cm??? Mitral E Point Velocity 91.0 cm/s Mitral A Point Velocity 82.3 cm/s Mitral E to A Ratio 1.1 MV Deceleration Time 254.6 ms TR Peak Velocity 250.2 cm/s TR Peak Gradient 25.0 mmHg FINDINGS Left Ventricle Left ventricular ejection fraction is estimated at 55-60 %. Moderately increased septal wall thickness. Normal left ventricular systolic function with no obvious regional wall motion abnormalities. Right Ventricle Normal right ventricular size and function. Right ventricular systolic pressure within normal limits. Right Atrium Normal right atrial size. Left Atrium Mild left atrial dilatation. Mitral Valve Structurally normal mitral valve. Trace mitral regurgitation. No mitral stenosis. Aortic Valve Aortic valve not well visualized. Severe aortic stenosis with a peak velocity of 3.99 m/s, peak gradient 61 mmHg, mean gradient 40mmHg. Mild aortic regurgitation. Tricuspid Valve Structurally normal tricuspid valve. Mild tricuspid regurgitation. No tricuspid stenosis. Pulmonic Valve Structurally normal pulmonic valve. Trace pulmonic regurgitation. No pulmonic stenosis. Pericardium Minimal pericardial effusion (normal variant). No pleural effusion. Aorta Aorta at upper limits of normal. CONCLUSIONS LVEF 55 to 60% Moderate concentric LVH Normal RV size and systolic function Mild left atrial dilatation Severe aortic stenosis with mean gradient of 40 mmHg Tricuspid regurgitation. RVSP estimated at 32 mmHg Previewed by: Dr Skyler Hernandez (Electronically Signed) Final Date: 16 October 2024 15:11
[2024-10-16] MEDS: CEFEPIME 2 GM in SODIUM CHLORIDE 0.9% 100 ML IVPB SCH (15:47)
[2024-10-16] MEDS ORDERED: DEXTROSE 50% SYRINGE 50 ML IVP PRN ×2 (15:51)
[2024-10-16] MEDS ORDERED: AMIODARONE 200 MG TAB PO SCH (16:00)
[2024-10-16 17:22] LABS: Glucose,Whole Blood 372 mg/dL (70-110)
[2024-10-16] MEDS: INSULIN LISPRO (HumaLOG) 100 UNIT/ML 10 mL VL SQ SCH (17:30)
[2024-10-16] MEDS: MAGNESIUM SULFATE-D5W PMX 1 GM in DEXTROSE/WATER 1 100ML.BAG IVPB SCH (18:45)
[2024-10-16] MEDS ORDERED: APIXABAN 5 MG TAB PO SCH (21:00)
[2024-10-16] MEDS ORDERED: METOPROLOL TARTRATE 25 MG TAB PO SCH (21:00)
[2024-10-16 21:59] LABS: Glucose,Whole Blood 446 mg/dL (70-110)
[2024-10-16] MEDS: ATORVASTATIN 40 MG TAB PO SCH (21:59)
[2024-10-16] MEDS: FAMOTIDINE 20 MG TAB PO SCH (22:00)
[2024-10-16] MEDS: INSULIN GLARGINE (LANTUS) 100 UNIT/ML SYR SQ SCH (22:08)
[2024-10-16] MEDS: ZOLPIDEM 5 MG TAB PO PRN (22:17)
--- NOTE | 2024-10-16 22:23 | P.CONS ---
History of Present Illness - Reason for Consult Consult date: 10/16/24 Pneumonia Requesting physician: Lloyd Quick - Chief Complaint Shortness of breath and cough x few days - History of Present Illness Patient is a 79-year-old male with a past medical history significant for Atrial Fibrillation, Chest Pain / Angina, COPD, Diabetes Mellitus, Hyperlipidemia, Hypertension, Osteoarthritis (OA), Pneumonia, Prostate Disorder, Supraventricular Tachycardia (SVT) recently treated for course of pneumonia with Ceftin patient sputum culture positive for Serratia and Yersinia species on 09/23/2024 patient now presenting back to the hospital concerning for increasing shortness of breath that apparently has been getting worse for the last few days patient also complaining of cough which is moderate intensity bring up some sput um which is yellowish in color denies any hemoptysis or pleuritic chest pain patient denies any nausea vomiting no choking with food no abdominal pain or diarrhea on presentation to the hospital patient did have low-grade fever of 99.9 F patient was tachycardic but not hypotensive he is hypoxic currently on 5 L nasal cannula oxygen patient did have a white count of 5.65 with a left shift creatinine is 1.20 electrolytes are normal liver enzymes are normal procalcitonin 0.78 patient did have a chest x-ray increasing patchy opacities throughout the right mid to lower lung zone especially the left lung base concerning for pneumonia patient was started on Rocephin and Zithromax infectious he was consulted for further management of antibiotic therapy Review of Systems Positive point and negatives has been mentioned in the HPI, complete review of systems was performed and all other systems are negative Past Medical History Past Medical History: Atrial Fibrillation, Chest Pain / Angina, COPD, Diabetes Mellitus, Hyperlipidemia, Hypertension, Osteoarthritis (OA), Pneumonia, Prostate Disorder, Supraventricular Tachycardia (SVT) Additional Past Medical History / Comment(s): Chronic hypoxic respiratory failure with home oxygen pt mostly just wears at night, past acute hypoxic respiratory failure requiring bipap, newly diagnosed , BPH, UTI Last Myocardial Infarction Date:: 2008 History of Any Multi-Drug Resistant Organisms: None Reported Past Surgical History: Back Surgery, Heart Catheterization, Hernia Repair, Joint Replacement, Orthopedic Surgery Additional Past Surgical History / Comment(s): microlaryngoscopy w/ lt vocal cord bx-neg, bronch-lung bx-neg, lt inguinal hernia, low back surgery, bilateral total hip arthroplasties, bilateral cataracts removed., colonoscopy, cataract surgery bilateral Past Anesthesia/Blood Transfusion Reactions: No Reported Reaction Past Psychological History: No Psychological Hx Reported Additional Psychological History / Comment(s): Pt lives in own home with his frank that has 3 steps into house has 1 cat, 1 dog. 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 Past heavy etoh use but quit heavy drinking 20 years ago now only drinks once or twice a week when he plays cards and less than 14 drinks /week. Past Drug Use History: None Reported - Past Family History Mother Family Medical History: COPD, Diabetes Mellitus Father Family Medical History: COPD, Diabetes Mellitus Brother(s) Family Medical History: Cancer Additional Family Medical History / Comment(s): leukemia Medications and Allergies Home Medications Medication Instructions Recorded Confirmed Type Budesonide-Formot 160-4.5 Mcg 2 puff INHALATION RT-BID 07/17/16 10/16/24 History [Symbicort 160-4.5 Mcg Inhaler] Famotidine [Pepcid] 20 mg PO BID 11/26/23 10/16/24 History Zolpidem [Ambien] 5 mg PO HS PRN 11/26/23 10/16/24 History Apixaban [Eliquis] 5 mg PO BID 04/02/24 10/16/24 History Empagliflozin [Jardiance] 10 mg PO DAILY 04/02/24 10/16/24 History Furosemide [Lasix] 20 mg PO DAILY 04/02/24 10/16/24 History Amiodarone [Cordarone] 100 mg PO DAILY 09/22/24 10/16/24 History Atorvastatin [Lipitor] 40 mg PO HS 09/22/24 10/16/24 History Ferrous Sulfate [Iron (65 MG 325 mg PO DAILY 09/22/24 10/16/24 History Elemental)] Insulin Aspart [NovoLOG Flexpen] See Protocol SQ AC-TID 09/22/24 10/16/24 History Metoprolol Tartrate [Lopressor] 12.5 mg PO BID 09/22/24 10/16/24 History Tamsulosin [Flomax] 0.4 mg PO DAILY 09/22/24 10/16/24 History Vitamin B(Unknown) 1 tab PO DAILY 09/22/24 10/16/24 History predniSONE 15 mg PO Q2D 09/22/24 10/16/24 History Ipratropium-Albuterol Nebulize 3 ml INHALATION RT-Q2H PRN each 09/27/24 10/16/24 Rx [Duoneb 0.5 mg-3 mg/3 ml Soln] Ipratropium-Albuterol Nebulize 3 ml INHALATION RT-QID 30 Days 09/27/24 10/16/24 Rx [Duoneb 0.5 mg-3 mg/3 ml Soln] #100 each Azithromycin [Zithromax] 250 mg PO MOWEFR 10/16/24 10/16/24 History Insulin Glargine,Hum.rec.anlog 15 units SQ HS 10/16/24 10/16/24 History [Lantus Solostar Pen] predniSONE [Deltasone] 20 mg PO Q2D 10/16/24 10/16/24 History Allergies Allergy/AdvReac Type Severity Reaction Status Date / Time Penicillins Allergy Rash/Hives Verified 10/16/24 14:17 Physical Exam Vitals: Vital Signs Temp Pulse Resp BP Pulse Ox 10/16/24 11:56 93 10/16/24 11:45 92 10/16/24 11:14 87 22 93/52 96 10/16/24 10:14 84 24 102/50 95 10/16/24 08:48 87 20 102/54 94 L 10/16/24 08:21 97 10/16/24 08:07 97 10/16/24 07:57 97.7 F 96 25 H 99/58 94 L 10/16/24 07:23 89 17 100/48 94 L 10/16/24 06:41 96 24 115/69 95 10/16/24 05:07 98 10/16/24 04:00 98.0 F 107 H 24 110/61 93 L 10/16/24 02:20 136 H 10/16/24 02:03 141 H 10/16/24 01:21 30 H 10/16/24 01:16 99.9 F H 120 H 26 H 160/68 94 L Intake and Output 10/15/24 10/16/24 10/16/24 22:59 06:59 14:59 Other: Weight 86.183 kg GENERAL DESCRIPTION: Elderly male lying in bed, no distress. No tachypnea or accessory muscle of respiration use. HEENT: Shows Pallor , no scleral icterus. Oral mucous membrane is dry. NECK: Trachea central, no thyromegaly. LUNGS: Unlabored breathing. Coarse breath sounds bilaterally HEART: S1, S2, regular rate and rhythm. No loud murmur ABDOMEN: Soft, no tenderness , guarding or rigidity, no organomegaly EXTREMITIES: No edema of feet. SKIN: No rash, no masses palpable. NEUROLOGICAL: The patient is awake, alert, oriented x3, mood and affect normal. Results CBC & Chem 7: 10/17/24 05:25 10/17/24 05: Labs: Abnormal Lab Results - Last 24 Hours (Table) 10/16/24 10/16/24 10/16/24 Range/Units 01:44 01:44 01:44 RBC 4.13 L (4.40-5.60) 10*6/uL Hgb 12.2 L (13.0-17.0) g/dL Hct 38.1 L (39.6-50.0) % Immature Gran # 0.05 H (0.00-0.04) 10*3/uL Lymphocytes # 0.45 L (0.90-5.00) 10*3/uL Monocytes # 0.14 L (0.20-1.00) 10*3/uL Eosinophils # 0.01 L (0.04-0.35) 10*3/uL APTT 19.9 L (22.0-30.0) sec BUN 36 H (9-20) mg/dL Glucose 140 H (74-99) mg/dL Plasma Lactic Acid Jakub (0.7-2.0) mmol/L Total Protein 6.0 L (6.3-8.2) g/dL TSH (0.465-4.680) mIU/L 10/16/24 10/16/24 Range/Units 01:44 09:55 RBC (4.40-5.60) 10*6/uL Hgb (13.0-17.0) g/dL Hct (39.6-50.0) % Immature Gran # (0.00-0.04) 10*3/uL Lymphocytes # (0.90-5.00) 10*3/uL Monocytes # (0.20-1.00) 10*3/uL Eosinophils # (0.04-0.35) 10*3/uL APTT (22.0-30.0) sec BUN (9-20) mg/dL Glucose (74-99) mg/dL Plasma Lactic Acid Jakub 3.3 H* (0.7-2.0) mmol/L Total Protein (6.3-8.2) g/dL TSH 0.438 L (0.465-4.680) mIU/L Assessment and Plan (1) Pneumonia Current Visit: Yes Status: Acute Code(s): J18.9 - PNEUMONIA, UNSPECIFIED ORGANISM SNOMED Code(s): 395899932 Plan: 1patient presented to the hospital with increasing shortness of breath and cough bringing up some yellow sputum in this patient did have low-grade fever with evidence of pneumonia chest x-ray in this patient who recently completed course of oral Ceftin and sputum culture at that time were positive for Serratia and Yersinia species will need to cover for more resistant gram-negative pathogen than the regular community-acquired pathogen for this episode of pneumonia 2-we will obtain sputum for Gram stain culture 3-discontinue Rocephin 4-start the patient on cefepime 2 g every 8 hours while waiting for repeat sputum culture to be finalized We will follow on clinical condition and cultures to further adjust medication if needed Thank you for this consultation we will follow the patient along with you Dictation was produced using [employer] dictation software. please excuse any grammatical, word or spelling errors. Time with Patient: Greater than 30
--- NOTE | 2024-10-16 22:51 | P.HPIM ---
History of Present Illness H&P Date: 10/16/24 Chief Complaint: Shortness of breath Patient is a 79-year-old male with a past medical history of atrial fibrillation on anticoagulation with Eliquis, hypertension, diabetes type 2 insulin- dependent, hypertension, hyperlipidemia, BPH, SVT, chronic hypoxic respiratory failure on oxygen at 4 L via nasal cannula, prior history of smoking and recent admission presents to ER with complaints of worsening shortness of breath. Patient also felt like his heart is racing fast. Was also complaining of fever at home. Complains of cough congestion and worsening dyspnea. Chest x-ray on admission showed interval increase in patchy opacities throughout the right mid to lower lung zone with questionable minimal subsegmental changes now identified in the left lung base. Differential considerations include asymmetric edema are bibasilar pneumonia. EKG showed sinus tachycardia 2D echocardiogram showed LVEF 55 to 60%. Moderate concentric LVH. Normal RV size and systolic function. Severe aortic stenosis with mean gradient of 40 mmHg tricuspid regurgitation. RVSP estimated at 32 mmHg. Laboratory data showed WBC 5.65, hemoglobin 12.2 and platelets 189, neutrophils 88.2% Sodium 137 potassium 4.2 chloride 104 bicarb is 22 BUN 36 and creatinine 1.2 and blood sugar 140 A1c 8.8 lactic acid 3.3 Troponin 0.025, proBNP 416 patient was tachypneic and tachycardic on admission Review of Systems Constitutional: Patient does have subjective fevers and chills. l generalized weakness and fatigue. Abdomen: Patient denied nausea vomiting and diarrhea and abdominal pain. Cardiovascular: Patient denies any chest pain. Worsening short of breath no pal pitations. No leg swelling Respiratory: Cough congestion and sputum production. Worsening shortness of breath Neurologic: Patient denied any numbness or tingling. no headache. Musculoskeletal: Patient denies any complaints of joint swelling or deformity. Skin: Negative Psychiatric: Negative Endocrine: No heat or cold intolerance. No recent weight gain. Genitourinary: No dysuria or hematuria. All other 14 point ROS negative except the above Past Medical History Past Medical History: Atrial Fibrillation, Chest Pain / Angina, COPD, Diabetes Mellitus, Hyperlipidemia, Hypertension, Osteoarthritis (OA), Pneumonia, Prostate Disorder, Supraventricular Tachycardia (SVT) Additional Past Medical History / Comment(s): Chronic hypoxic respiratory failure with home oxygen pt mostly just wears at night, past acute hypoxic respiratory failure requiring bipap, newly diagnosed , BPH, UTI Last Myocardial Infarction Date:: 2008 History of Any Multi-Drug Resistant Organisms: None Reported Past Surgical History: Back Surgery, Heart Catheterization, Hernia Repair, Joint Replacement, Orthopedic Surgery Additional Past Surgical History / Comment(s): microlaryngoscopy w/ lt vocal cord bx-neg, bronch-lung bx-neg, lt inguinal hernia, low back surgery, bilateral total hip arthroplasties, bilateral cataracts removed., colonoscopy, cataract surgery bilateral Past Anesthesia/Blood Transfusion Reactions: No Reported Reaction Past Psychological History: No Psychological Hx Reported Additional Psychological History / Comment(s): Pt lives in own home with his frank that has 3 steps into house has 1 cat, 1 dog. 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 Past heavy etoh use but quit heavy drinking 20 years ago now only drinks once or twice a week when he plays cards and less than 14 drinks/week. Past Drug Use History: None Reported - Past Family History Mother Family Medical History: COPD, Diabetes Mellitus Father Family Medical History: COPD, Diabetes Mellitus Brother(s) Family Medical History: Cancer Additional Family Medical History / Comment(s): leukemia Medications and Allergies Home Medications Medication Instructions Recorded Confirmed Type Budesonide-Formot 160-4.5 Mcg 2 puff INHALATION RT-BID 07/17/16 10/16/24 History [Symbicort 160-4.5 Mcg Inhaler] Famotidine [Pepcid] 20 mg PO BID 11/26/23 10/16/24 History Zolpidem [Ambien] 5 mg PO HS PRN 11/26/23 10/16/24 History Apixaban [Eliquis] 5 mg PO BID 04/02/24 10/16/24 History Empagliflozin [Jardiance] 10 mg PO DAILY 04/02/24 10/16/24 History Furosemide [Lasix] 20 mg PO DAILY 04/02/24 10/16/24 History Amiodarone [Cordarone] 100 mg PO DAILY 09/22/24 10/16/24 History Atorvastatin [Lipitor] 40 mg PO HS 09/22/24 10/16/24 History Ferrous Sulfate [Iron (65 MG 325 mg PO DAILY 09/22/24 10/16/24 History Elemental)] Insulin Aspart [NovoLOG Flexpen] See Protocol SQ AC-TID 09/22/24 10/16/24 History Metoprolol Tartrate [Lopressor] 12.5 mg PO BID 09/22/24 10/16/24 History Tamsulosin [Flomax] 0.4 mg PO DAILY 09/22/24 10/16/24 History Vitamin B(Unknown) 1 tab PO DAILY 09/22/24 10/16/24 History predniSONE 15 mg PO Q2D 09/22/24 10/16/24 History Ipratropium-Albuterol Nebulize 3 ml INHALATION RT-Q2H PRN each 09/27/24 10/16/24 Rx [Duoneb 0.5 mg-3 mg/3 ml Soln] Ipratropium-Albuterol Nebulize 3 ml INHALATION RT-QID 30 Days 09/27/24 10/16/24 Rx [Duoneb 0.5 mg-3 mg/3 ml Soln] #100 each Azithromycin [Zithromax] 250 mg PO MOWEFR 10/16/24 10/16/24 History Insulin Glargine,Hum.rec.anlog 15 units SQ HS 10/16/24 10/16/24 History [Lantus Solostar Pen] predniSONE [Deltasone] 20 mg PO Q2D 10/16/24 10/16/24 History Allergies Allergy/AdvReac Type Severity Reaction Status Date / Time Penicillins Allergy Rash/Hives Verified 10/16/24 14:17 Physical Exam Vitals: Vital Signs Temp Pulse Resp BP Pulse Ox 10/16/24 11:56 93 10/16/24 11:45 92 10/16/24 11:14 87 22 93/52 96 10/16/24 10:14 84 24 102/50 95 10/16/24 08:48 87 20 102/54 94 L 10/16/24 08:21 97 10/16/24 08:07 97 10/16/24 07:57 97.7 F 96 25 H 99/58 94 L 10/16/24 07:23 89 17 100/48 94 L 10/16/24 06:41 96 24 115/69 95 10/16/24 05:07 98 10/16/24 04:00 98.0 F 107 H 24 110/61 93 L 10/16/24 02:20 136 H 10/16/24 02:03 141 H 10/16/24 01:21 30 H 10/16/24 01:16 99.9 F H 120 H 26 H 160/68 94 L Intake and Output 10/15/24 10/16/24 10/16/24 22:59 06:59 14:59 Other: Weight 86.183 kg PHYSICAL EXAMINATION: Patient is lying in the bed comfortably, no acute distress, awake alert and oriented.. HEENT: Normocephalic. Neck is supple. Pupils reactive. Nostrils clear. Oral cavity is moist. Neck reveals no JVD, carotid bruits, or thyromegaly. CHEST EXAMINATION: Trachea is central. Symmetrical expansion. Bibasilar diminished sounds and scattered coarse sounds. Nonlabored breathing. CARDIAC: Normal S1, S2 with no gallops. Ejection systolic murmur. ABDOMEN: Soft. Bowel sounds normal. No organomegaly. No abdominal bruits. Extremities: reveal no edema. No clubbing or cyanosis Neurologically awake, alert, oriented x3 with well-coordinated movements. No focal deficits noted Skin: No rash or skin lesions. Psychiatric: Coperative. Nonsuicidal, anxious. Musculoskeletal: No joint swelling or deformity. Normal range of motion. Results CBC & Chem 7: 10/16/24 01:44 10/16/24 01:44 Labs: Abnormal Lab Results - Last 24 Hours (Table) 10/16/24 10/16/24 10/16/24 Range/Units 01:44 01:44 01:44 RBC 4.13 L (4.40-5.60) 10*6/uL Hgb 12.2 L (13.0-17.0) g/dL Hct 38.1 L (39.6-50.0) % Immature Gran # 0.05 H (0.00-0.04) 10*3/uL Lymphocytes # 0.45 L (0.90-5.00) 10*3/uL Monocytes # 0.14 L (0.20-1.00) 10*3/uL Eosinophils # 0.01 L (0.04-0.35) 10*3/uL APTT 19.9 L (22.0-30.0) sec BUN 36 H (9-20) mg/dL Glucose 140 H (74-99) mg/dL Plasma Lactic Acid Jakub (0.7-2.0) mmol/L Total Protein 6.0 L (6.3-8.2) g/dL TSH (0.465-4.680) mIU/L 10/16/24 10/16/24 Range/Units 01:44 09:55 RBC (4.40-5.60) 10*6/uL Hgb (13.0-17.0) g/dL Hct (39.6-50.0) % Immature Gran # (0.00-0.04) 10*3/uL Lymphocytes # (0.90-5.00) 10*3/uL Monocytes # (0.20-1.00) 10*3/uL Eosinophils # (0.04-0.35) 10*3/uL APTT (22.0-30.0) sec BUN (9-20) mg/dL Glucose (74-99) mg/dL Plasma Lactic Acid Jakub 3.3 H* (0.7-2.0) mmol/L Total Protein (6.3-8.2) g/dL TSH 0.438 L (0.465-4.680) mIU/L Assessment and Plan Assessment: Acute on chronic hypoxic respiratory failure secondary to COPD and pneumonia Pneumonia with opacities throughout the right midlung and subsegmental changes in the left lung base. Sepsis secondary pneumonia Lactic acidosis 3.3 on admission Recent history of pneumonia with sputum cultures growing Serratia and yesrsinia Acute COPD exacerbation. Chronic hypoxic respiratory failure requiring 4 L oxygen via nasal cannula Paroxysmal atrial fibrillation on anticoagulation with Eliquis Severe aortic stenosis with mean gradient of 40 mmHg Hyperglycemia with uncontrolled diabetes type 2 A1c 8.8 Hyperlipidemia Chronic HFpEF DVT prophylaxis patient is already on anticoagulation Plan: Patient will be continued on telemonitoring and oxygen supplementation. Patient was given IV hydration. Continue with antibiotics cefepime and azithromycin. ID is on board. Follow-up sputum cultures, blood cultures. Procalcitonin level 0.78 patient was also started on IV Solu-Medrol and DuoNebs and Symbicort. Patient was started back on home medication including metoprolol, Eliquis and amiodarone. Patient is also on Jardiance and Lasix. Follow-up for repeat CBC and BMP. Prognosis guarded. Pulmonary, cardiology and ID is on board. Time with Patient: Greater than 30
[2024-10-17 01:19] LABS: Cholesterol 103.00 mg/dL (0.00-200.00); HDL Cholesterol 56.70 mg/dL (40.00-60.00); LDL Cholesterol,Calculated 16.9 mg/dL (0.0-131.0); Triglycerides 147.00 mg/dL (0.00-149.00); VLDL Calculation 29.40 mg/dL (5.00-40.00)
[2024-10-17 05:45] LABS: Basophils # (A) 0.04 10*3/uL (0.00-0.10); Basophils % (A) 0.4 %; Eosinophils # (A) 0.00 10*3/uL (0.04-0.35); Eosinophils % (A) 0.0 %; HCT 34.3 % (39.6-50.0); HGB 10.7 g/dL (13.0-17.0); Lymphocytes # (A) 0.21 10*3/uL (0.90-5.00); Lymphocytes % (A) 2.1 %; MCH 29.4 pg (27.0-32.0); MCHC 31.2 g/dL (32.0-37.0); MCV 94.2 fL (80.0-97.0); Monocytes # (A) 0.26 10*3/uL (0.20-1.00); Monocytes % (A) 2.6 %; Neutrophils # (A) 9.40 10*3/uL (1.80-7.70); Neutrophils % (A) 93.8 %; Platelet Count 206 10*3/uL (140-440); RBC 3.64 10*6/uL (4.40-5.60); RDW 17.0 % (11.5-14.5); WBC 10.02 10*3/uL (4.50-10.00)
[2024-10-17 05:58] LABS: ALT 29 U/L (4-49); AST 20 U/L (17-59); African American GFR (CKD) 36 (>60 ml/min/1.73 sqM); Albumin 2.8 g/dL (3.5-5.0); Alkaline Phosphatase 59 U/L (38-126); Anion Gap 11 mmol/L; Blood Urea Nitrogen 48 mg/dL (9-20); Calcium 7.9 mg/dL (8.4-10.2); Carbon Dioxide 18 mmol/L (22-30); Chloride 106 mmol/L (98-107); Glucose 348 mg/dL (74-99); Magnesium 2.8 mg/dL (1.6-2.3); Non-African American GFR(CKD) 31 (>60 ml/min/1.73 sqM); Potassium 4.9 mmol/L (3.5-5.1); Sodium 135 mmol/L (137-145); Total Protein 5.0 g/dL (6.3-8.2)
--- NOTE | 2024-10-17 06:38 | XR ---
EXAMINATION TYPE: XR chest 1V DATE OF EXAM: 10/17/2024 COMPARISON: 10/12/2024 CLINICAL INDICATION: Male, 79 years old with history of CHF; TECHNIQUE: Single frontal view of the chest is obtained. FINDINGS: There is been interval development of ill-defined partially consolidative and interstitial opacity in the right mid to lower lung zone. Mild scattered interstitial opacity in the left lung is stable. There is no pneumothorax. The heart is mildly enlarged. There are moderate degenerative changes of th e shoulders. IMPRESSION: Interval development of an acute cardiopulmonary process in the right mid to lower lung zone likely p neumonia or pulmonary edema. [facility], Workstation: [facility], 10/17/2024 6:35 AM
[2024-10-17] MEDS ORDERED: NON FORMULARY DRUG (Empagliflozin [Jardiance] 10 MG Tablet) PO SCH (09:00)
[2024-10-17] MEDS ORDERED: FUROSEMIDE 20 MG TAB PO SCH (09:00)
[2024-10-17 09:18] LABS: Glucose,Whole Blood 426 mg/dL (70-110)
[2024-10-17] MEDS: INSULIN LISPRO (HumaLOG) 100 UNIT/ML 10 mL VL SQ SCH ×2 (09:28→12:03)
[2024-10-17] MEDS: TAMSULOSIN 0.4 MG CAP.ER.24H PO SCH (09:28)
[2024-10-17] MEDS: INSULIN LISPRO (HumaLOG) 100 UNIT/ML 10 mL VL SQ ONE (09:39)
[2024-10-17] MEDS: INSULIN GLARGINE (LANTUS) 100 UNIT/ML SYR SQ SCH (10:13)
[2024-10-17] MEDS: AMIODARONE 100 MG TAB PO SCH (10:13)
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
[2024-10-17 11:46] LABS: Glucose,Whole Blood 407 mg/dL (70-110)
[2024-10-17 15:01] LABS: Glucose,Whole Blood 303 mg/dL (70-110)
--- NOTE | 2024-10-17 15:06 | P.PN ---
Subjective Progress Note Date: 10/17/24 Principal diagnosis: Reason for follow-up is pneumonia Patient is a 79-year-old male with a past medical history significant for Atrial Fibrillation, Chest Pain / Angina, COPD, Diabetes Mellitus, Hyperlipidemia, Hypertension, Osteoarthritis (OA), Pneumonia, Prostate Disorder, Supraventricular Tachycardia (SVT) recently treated for course of pneumonia presented to hospital with increasing shortness of breath and cough did have abnormal x-ray concerning for pneumonia with a fever. On today's evaluation that is 10/17/2024, Patient is afebrile patient is currently on 5 L nasal oxygen and still complaining of some shortness of breath, the patient denies any chest pain or worsening cough, the patient denies any nausea vomiting did not have any abdominal pain and no diarrhea. Patient white count is 10.02, creatinine is 2.01 sputum requested but not collected Objective - Vital Signs Vital signs: Vital Signs Temp 98.0 F 10/16/24 18:32 Pulse 66 10/17/24 11:41 Resp 24 10/17/24 10:00 BP 147/71 10/17/24 10:00 Pulse Ox 96 10/17/24 10:00 FiO2 Intake & Output 10/16/24 10/17/24 10/17/24 18:59 06:59 18:59 Output Total 538 1800 Balance -538 -1800 Output: Urine 538 1800 - Exam GENERAL DESCRIPTION: An elderly male up in the chair in no distress RESPIRATORY SYSTEM: Unlabored breathing , decreased breath sounds at bases HEART: S1 S2 regular rate and rhythm , ABDOMEN: Soft , no tenderness EXTREMITIES: No edema feet - Labs CBC & Chem 7: 10/17/24 05:25 10/17/24 05:25 Labs: Abnormal Lab Results - Last 24 Hours (Table) 10/16/24 10/16/24 10/16/24 Range/Units 01:44 01:44 17:20 WBC (4.50-10.00) 10*3/uL RBC (4.40-5.60) 10*6/uL Hgb (13.0-17.0) g/dL Hct (39.6-50.0) % MCHC (32.0-37.0) g/dL Immature Gran # (0.00-0.04) 10*3/uL Neutrophils # (1.80-7.70) 10*3/uL Lymphocytes # (0.90-5.00) 10*3/uL Eosinophils # (0.04-0.35) 10*3/uL Sodium (137-145) mmol/L Carbon Dioxide (22-30) mmol/L BUN (9-20) mg/dL Creatinine (0.66-1.25) mg/dL Glucose (74-99) mg/dL POC Glucose (mg/dL) 372 H (70-110) mg/dL Hemoglobin A1c 8.8 H (<=6.0) % Calcium (8.4-10.2) mg/dL Phosphorus (2.5-4.5) mg/dL Magnesium (1.6-2.3) mg/dL Total Protein (6.3-8.2) g/dL Albumin (3.5-5.0) g/dL Procalcitonin 0.78 H (0.02-0.50) ng/mL 10/16/24 10/17/24 10/17/24 Range/Units 21:57 05:25 05:25 WBC 10.02 H (4.50-10.00) 10*3/uL RBC 3.64 L (4.40-5.60) 10*6/uL Hgb 10.7 L (13.0-17.0) g/dL Hct 34.3 L (39.6-50.0) % MCHC 31.2 L (32.0-37.0) g/dL Immature Gran # 0.11 H (0.00-0.04) 10*3/uL Neutrophils # 9.40 H (1.80-7.70) 10*3/uL Lymphocytes # 0.21 L (0.90-5.00) 10*3/uL Eosinophils # 0.00 L (0.04-0.35) 10*3/uL Sodium (137-145) mmol/L Carbon Dioxide (22-30) mmol/L BUN (9-20) mg/dL Creatinine (0.66-1.25) mg/dL Glucose (74-99) mg/dL POC Glucose (mg/dL) 446 H (70-110) mg/dL Hemoglobin A1c 9.1 H (<=6.0) % Calcium (8.4-10.2) mg/dL Phosphorus (2.5-4.5) mg/dL Magnesium (1.6-2.3) mg/dL Total Protein (6.3-8.2) g/dL Albumin (3.5-5.0) g/dL Procalcitonin (0.02-0.50) ng/mL 10/17/24 10/17/24 10/17/24 Range/Units 05:25 09:16 11:45 WBC (4.50-10.00) 10*3/uL RBC (4.40-5.60) 10*6/uL Hgb (13.0-17.0) g/dL Hct (39.6-50.0) % MCHC (32.0-37.0) g/dL Immature Gran # (0.00-0.04) 10*3/uL Neutrophils # (1.80-7.70) 10*3/uL Lymphocytes # (0.90-5.00) 10*3/uL Eosinophils # (0.04-0.35) 10*3/uL Sodium 135 L (137-145) mmol/L Carbon Dioxide 18 L (22-30) mmol/L BUN 48 H (9-20) mg/dL Creatinine 2.01 H (0.66-1.25) mg/dL Glucose 348 H (74-99) mg/dL POC Glucose (mg/dL) 426 H 407 H (70-110) mg/dL Hemoglobin A1c (<=6.0) % Calcium 7.9 L (8.4-10.2) mg/dL Phosphorus 4.8 H (2.5-4.5) mg/dL Magnesium 2.8 H (1.6-2.3) mg/dL Total Protein 5.0 L (6.3-8.2) g/dL Albumin 2.8 L (3.5-5.0) g/dL Procalcitonin (0.02-0.50) ng/mL Microbiology - Last 24 Hours (Table) 10/16/24 01:44 Blood Culture - Preliminary Blood Assessment and Plan (1) Pneumonia Current Visit: Yes Status: Acute Code(s): J18.9 - PNEUMONIA, UNSPECIFIED ORGANISM SNOMED Code(s): 455637551 Plan: 1patient presented to the hospital with increasing shortness of breath and cou gh bringing up some yellow sputum in this patient did have low-grade fever with evidence of pneumonia chest x-ray in this patient who recently completed course of oral Ceftin and sputum culture at that time were positive for Serratia and Yersinia species will need to cover for more resistant gram-negative pathogen than the regular community-acquired pathogen for this episode of pneumonia 2- sputum for Gram stain culture requested but not collected will be requested again 3-will be treated with cefepime 2 g every 8 hours while waiting for repeat sputum culture to be finalized Dictation was produced using [employer] dictation software. please excuse any grammatical, word or spelling errors.
[2024-10-17 17:45] LABS: Glucose,Whole Blood 391 mg/dL (70-110)
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
[2024-10-17 22:20] LABS: Glucose,Whole Blood 374 mg/dL (70-110)
[2024-10-17] MEDS: CEFEPIME 1 GM in SODIUM CHLORIDE 0.9% 50 ML IVPB SCH (22:29)
--- NOTE | 2024-10-17 23:06 | P.PN ---
Subjective Progress Note Date: 10/17/24 Patient is a 79-year-old male with a past medical history of atrial fibrillation on anticoagulation with Eliquis, hypertension, diabetes type 2 insulin- dependent, hypertension, hyperlipidemia, BPH, SVT, chronic hypoxic respiratory failure on oxygen at 4 L via nasal cannula, prior history of smoking and recent admission presents to ER with complaints of worsening shortness of breath. Patient also felt like his heart is racing fast. Was also complaining of fever at home. Complains of cough congestion and worsening dyspnea. Chest x-ray on admission showed interval increase in patchy opacities throughout the right mid to lower lung zone with questionable minimal subsegmental changes now identified in the left lung base. Differential considerations include asymmetric edema are bibasilar pneumonia. EKG showed sinus tachycardia 2D echocardiogram showed LVEF 55 to 60%. Moderate concentric LVH. Normal RV size and systolic function. Severe aortic stenosis with mean gradient of 40 mmHg tricuspid regurgitation. RVSP estimated at 32 mmHg. Laboratory data showed WBC 5.65, hemoglobin 12.2 and platelets 189, neutrophils 88.2% Sodium 137 potassium 4.2 chloride 104 bicarb is 22 BUN 36 and creatinine 1.2 and blood sugar 140 A1c 8.8 lactic acid 3.3 Troponin 0.025, proBNP 416 patient was tachypneic and tachycardic on admission 10/17/2024 Patient is currently sitting in the chair. Awake alert and oriented x 3. Shortness of breath better compared to yesterday. No complaints of chest pain. No nausea or vomiting. Patient is being continued on antibiotics and home cefepime. Also on DuoNebs a nd IV Solu-Medrol. Patient is hyperglycemic likely due to steroids and insulin regimen has been adjusted. Home show WBC 10.0 hemoglobin 10.7 platelets 206 sodium 135 potassium 4.9 chloride 106 bicarb is 18 BUN 48 and creatinine 2.01 and blood sugar 348. A1c 9.1 Current medications reviewed. Objective - Vital Signs Vital signs: Vital Signs Temp 98.0 F 10/17/24 13:58 Pulse 78 10/17/24 16:18 Resp 18 10/17/24 16:18 BP 118/76 10/17/24 16:18 Pulse Ox 95 10/17/24 16:18 FiO2 Intake & Output 10/16/24 10/17/24 10/17/24 18:59 06:59 18:59 Output Total 538 1800 Balance -538 -1800 Output: Urine 538 1800 - Exam PHYSICAL EXAMINATION: Patient is lying in the bed comfortably, no acute distress, awake alert and oriented.. HEENT: Normocephalic. Neck is supple. Pupils reactive. Nostrils clear. Oral cavity is moist. Neck reveals no JVD, carotid bruits, or thyromegaly. CHEST EXAMINATION: Trachea is central. Symmetrical expansion. Bibasilar diffuse wheezing and scattered rhonchi.. Nonlabored breathing. CARDIAC: Normal S1, S2 with no gallops. Ejection systolic murmur. ABDOMEN: Soft. Bowel sounds normal. No organomegaly. No abdominal bruits. Extremities: reveal no edema. No clubbing or cyanosis Neurologically awake, alert, oriented x3 with well-coordinated movements. No focal deficits noted Skin: No rash or skin lesions. Psychiatric: Coperative. Nonsuicidal, anxious. Musculoskeletal: No joint swelling or deformity. Normal range of motion. - Labs CBC & Chem 7: 10/17/24 05:25 10/17/24 05:25 Labs: Abnormal Lab Results - Last 24 Hours (Table) 10/16/24 10/16/24 10/17/24 Range/Units 17:20 21:57 05:25 WBC (4.50-10.00) 10*3/uL RBC (4.40-5.60) 10*6/uL Hgb (13.0-17.0) g/dL Hct (39.6-50.0) % MCHC (32.0-37.0) g/dL Immature Gran # (0.00-0.04) 10*3/uL Neutrophils # (1.80-7.70) 10*3/uL Lymphocytes # (0.90-5.00) 10*3/uL Eosinophils # (0.04-0.35) 10*3/uL Sodium (137-145) mmol/L Carbon Dioxide (22-30) mmol/L BUN (9-20) mg/dL Creatinine (0.66-1.25) mg/dL Glucose (74-99) mg/dL POC Glucose (mg/dL) 372 H 446 H (70-110) mg/dL Hemoglobin A1c 9.1 H (<=6.0) % Calcium (8.4-10.2) mg/dL Phosphorus (2.5-4.5) mg/dL Magnesium (1.6-2.3) mg/dL Total Protein (6.3-8.2) g/dL Albumin (3.5-5.0) g/dL 10/17/24 10/17/24 10/17/24 Range/Units 05:25 05:25 09:16 WBC 10.02 H (4.50-10.00) 10*3/uL RBC 3.64 L (4.40-5.60) 10*6/uL Hgb 10.7 L (13.0-17.0) g/dL Hct 34.3 L (39.6-50.0) % MCHC 31.2 L (32.0-37.0) g/dL Immature Gran # 0.11 H (0.00-0.04) 10*3/uL Neutrophils # 9.40 H (1.80-7.70) 10*3/uL Lymphocytes # 0.21 L (0.90-5.00) 10*3/uL Eosinophils # 0.00 L (0.04-0.35) 10*3/uL Sodium 135 L (137-145) mmol/L Carbon Dioxide 18 L (22-30) mmol/L BUN 48 H (9-20) mg/dL Creatinine 2.01 H (0.66-1.25) mg/dL Glucose 348 H (74-99) mg/dL POC Glucose (mg/dL) 426 H (70-110) mg/dL Hemoglobin A1c (<=6.0) % Calcium 7.9 L (8.4-10.2) mg/dL Phosphorus 4.8 H (2.5-4.5) mg/dL Magnesium 2.8 H (1.6-2.3) mg/dL Total Protein 5.0 L (6.3-8.2) g/dL Albumin 2.8 L (3.5-5.0) g/dL 10/17/24 10/17/24 Range/Units 11:45 14:59 WBC (4.50-10.00) 10*3/uL RBC (4.40-5.60) 10*6/uL Hgb (13.0-17.0) g/dL Hct (39.6-50.0) % MCHC (32.0-37.0) g/dL Immature Gran # (0.00-0.04) 10*3/uL Neutrophils # (1.80-7.70) 10*3/uL Lymphocytes # (0.90-5.00) 10*3/uL Eosinophils # (0.04-0.35) 10*3/uL Sodium (137-145) mmol/L Carbon Dioxide (22-30) mmol/L BUN (9-20) mg/dL Creatinine (0.66-1.25) mg/dL Glucose (74-99) mg/dL POC Glucose (mg/dL) 407 H 303 H (70-110) mg/dL Hemoglobin A1c (<=6.0) % Calcium (8.4-10.2) mg/dL Phosphorus (2.5-4.5) mg/dL Magnesium (1.6-2.3) mg/dL Total Protein (6.3-8.2) g/dL Albumin (3.5-5.0) g/dL Microbiology - Last 24 Hours (Table) 10/16/24 01:44 Blood Culture - Preliminary Blood Assessment and Plan Assessment: Acute on chronic hypoxic respiratory failure secondary to COPD and pneumonia Pneumonia with opacities throughout the right midlung and subsegmental changes in the left lung base. Sepsis secondary pneumonia Lactic acidosis 3.3 on admission Recent history of pneumonia with sputum cultures growing Serratia and yesrsinia Acute COPD exacerbation. Acute on chronic hypoxic respiratory failure requiring 4 L oxygen via nasal cannula. Patient is currently on 5 L oxygen via nasal cannula. Paroxysmal atrial fibrillation on anticoagulation with Eliquis Severe aortic stenosis with mean gradient of 40 mmHg Hyperglycemia with uncontrolled diabetes type 2 A1c 8.8 Hyperlipidemia Chronic HFpEF DVT prophylaxis patient is already on anticoagulation Plan: Patient will be continued on telemonitoring and oxygen supplementation. Patient was given IV hydration. Continue with antibiotics cefepime and azithromycin. ID is on board. Follow-up sputum cultures, blood cultures. Procalcitonin level 0.78 patient was also started on IV Solu-Medrol and DuoNebs and Symbicort. Patient was started back on home medication including metoprolol, Eliquis and amiodarone. Patient is also on Jardiance and Lasix. Patient will need outpatient TAVR workup. Follow-up for repeat CBC and BMP. Prognosis guarded. Pulmonary, cardiology and ID is on board. Time with Patient: Greater than 30
[2024-10-18 06:13] LABS: Glucose,Whole Blood 240 mg/dL (70-110)
[2024-10-18 06:16] LABS: Glucose,Whole Blood 315 mg/dL (70-110)
[2024-10-18] MEDS: FAMOTIDINE 20 MG TAB PO SCH (08:38)
[2024-10-18 11:00] LABS: HCT 30.2 % (39.6-50.0); HGB 9.5 g/dL (13.0-17.0); MCH 29.4 pg (27.0-32.0); MCHC 31.5 g/dL (32.0-37.0); MCV 93.5 fL (80.0-97.0); Platelet Count 191 10*3/uL (140-440); RBC 3.23 10*6/uL (4.40-5.60); RDW 16.5 % (11.5-14.5); WBC 8.25 10*3/uL (4.50-10.00)
[2024-10-18 11:13] LABS: African American GFR (CKD) 49 (>60 ml/min/1.73 sqM); Anion Gap 10 mmol/L; Blood Urea Nitrogen 44 mg/dL (9-20); Calcium 8.3 mg/dL (8.4-10.2); Carbon Dioxide 18 mmol/L (22-30); Chloride 111 mmol/L (98-107); Glucose 338 mg/dL (74-99); Magnesium 2.7 mg/dL (1.6-2.3); Non-African American GFR(CKD) 42 (>60 ml/min/1.73 sqM); Potassium 4.3 mmol/L (3.5-5.1); Sodium 139 mmol/L (137-145)
[2024-10-18 11:45] LABS: Glucose,Whole Blood 359 mg/dL (70-110)
[2024-10-18 11:50] LABS: Lymphocytes # (M) 0.25 k/uL (1.0-4.8); Monocytes # (M) 0.25 k/uL (0-1.0); Neutrophils # (M) 7.76 k/uL (1.3-7.7); Neutrophils % (M) 94 %; Total Cells Counted 100
[2024-10-18 11:52] LABS: RBC Fragments Present; Spherocytes Present
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
[2024-10-18 16:23] LABS: Glucose,Whole Blood 257 mg/dL (70-110)
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
[2024-10-18 20:28] LABS: Glucose,Whole Blood 379 mg/dL (70-110)
[2024-10-18] MEDS: INSULIN GLARGINE (LANTUS) 100 UNIT/ML SYR SQ SCH (20:52)
--- NOTE | 2024-10-18 21:55 | P.PN ---
Subjective Progress Note Date: 10/18/24 Patient is a 79-year-old male with a past medical history of atrial fibrillation on anticoagulation with Eliquis, hypertension, diabetes type 2 insulin- dependent, hypertension, hyperlipidemia, BPH, SVT, chronic hypoxic respiratory failure on oxygen at 4 L via nasal cannula, prior history of smoking and recent admission presents to ER with complaints of worsening shortness of breath. Patient also felt like his heart is racing fast. Was also complaining of fever at home. Complains of cough congestion and worsening dyspnea. Chest x-ray on admission showed interval increase in patchy opacities throughout the right mid to lower lung zone with questionable minimal subsegmental changes now identified in the left lung base. Differential considerations include asymmetric edema are bibasilar pneumonia. EKG showed sinus tachycardia 2D echocardiogram showed LVEF 55 to 60%. Moderate concentric LVH. Normal RV size and systolic function. Severe aortic stenosis with mean gradient of 40 mmHg tricuspid regurgitation. RVSP estimated at 32 mmHg. Laboratory data showed WBC 5.65, hemoglobin 12.2 and platelets 189, neutrophils 88.2% Sodium 137 potassium 4.2 chloride 104 bicarb is 22 BUN 36 and creatinine 1.2 and blood sugar 140 A1c 8.8 lactic acid 3.3 Troponin 0.025, proBNP 416 patient was tachypneic and tachycardic on admission 10/17/2024 Patient is currently sitting in the chair. Awake alert and oriented x 3. Shortness of breath better compared to yesterday. No complaints of chest pain. No nausea or vomiting. Patient is being continued on antibiotics and home cefepime. Also on DuoNebs an d IV Solu-Medrol. Patient is hyperglycemic likely due to steroids and insulin regimen has been adjusted. Home show WBC 10.0 hemoglobin 10.7 platelets 206 sodium 135 potassium 4.9 chloride 106 bicarb is 18 BUN 48 and creatinine 2.01 and blood sugar 348. A1c 9.1 10/18/2024 Patient evaluated today sitting up at the bedside. He continues to report significant shortness of breath. He is continued on IV cefepime and IV solumedrol. Blood glucose remains elevated and lantus has been increased to 20 units twice daily. Sputum culture has been sent today. Review of Systems Constitutional: Denied any fatigue denied any fever. Cardio vascular: denied any chest pain, palpitations Gastrointestinal: denied any nausea, vomiting, diarrhea Pulmonary: Denied any shortness of breath cough Neurologic denied any new focal deficits All inpatient medications were reviewed and appropriate changes in these medications as dictated in the interval history and assessment and plan. PHYSICAL EXAMINATION: GENERAL: The patient is alert and oriented x3, not in any acute distress. Well developed, well nourished. HEENT: Pupils are round and equally reacting to light. EOMI. No scleral icterus. No conjunctival pallor. Normocephalic, atraumatic. No pharyngeal erythema. No thyromegaly. CARDIOVASCULAR: S1 and S2 present. No murmurs, rubs, or gallops. PULMONARY: Chest is clear to auscultation, no wheezing or crackles. ABDOMEN: Soft, nontender, nondistended, normoactive bowel sounds. No palpable organomegaly. MUSCULOSKELETAL: No joint swelling or deformity. EXTREMITIES: No cyanosis, clubbing, or pedal edema. NEUROLOGICAL: Gross neurological examination did not reveal any focal deficits. SKIN: No rashes. Assessment Acute on chronic hypoxic respiratory failure secondary to COPD and pneumonia Pneumonia with opacities throughout the right midlung and subsegmental changes in the left lung base. Sepsis secondary pneumonia Lactic acidosis 3.3 on admission Recent history of pneumonia with sputum cultures growing Serratia and yesrsinia Acute COPD exacerbation. Acute on chronic hypoxic respiratory failure requiring 4 L oxygen via nasal cannula. Patient is currently on 5 L oxygen via nasal cannula. Paroxysmal atrial fibrillation on anticoagulation with Eliquis Severe aortic stenosis with mean gradient of 40 mmHg Hyperglycemia with uncontrolled diabetes type 2 A1c 8.8 Hyperlipidemia Chronic HFpEF DVT prophylaxis patient is already on anticoagulation Plan: Patient will be continued on telemonitoring and oxygen supplementation. Continue with antibiotics cefepime, ID is on board. Follow-up sputum cultures, blood cultures. Procalcitonin level 0.78 patient was also started on IV Solu-Medrol and DuoNebs and Symbicort. Patient was started back on home medication including metoprolol, Eliquis and amiodarone. Patient is also on Jardiance and Lasix. Patient will need outpatient TAVR workup. Follow-up for repeat CBC and BMP. Pulmonary, cardiology and ID is on board. The impression and plan of care has been dictated by Kaylynn Lea Nurse Practitioner as directed. Dr. Brayan MD I have performed a history and physical examination and medical decision making of this patient, discussed the same with the dictator, and agree with the dictators assessment and plan as written, documented as a scribe. Based on total visit time, I have performed more than 50% of this visit. Objective - Vital Signs Vital signs: Vital Signs Temp 97.7 F 10/18/24 07:47 Pulse 74 10/18/24 09:10 Resp 18 10/18/24 07:47 BP 128/57 10/18/24 07:47 Pulse Ox 98 10/18/24 07:47 FiO2 Intake & Output 10/17/24 10/18/24 10/18/24 18:59 06:59 18:59 Output Total 1800 400 260 Balance -1800 400 -260 Weight 86.183 kg 91 kg Output: Urine 1800 400 260 Other: Voiding Method Toilet Bedside Commode # Voids 2 1 - Labs CBC & Chem 7: 10/18/24 10:23 10/18/24 10:23 Labs: Abnormal Lab Results - Last 24 Hours (Table) 10/17/24 10/17/24 10/17/24 Range/Units 11:45 14:59 17:44 POC Glucose (mg/dL) 407 H 303 H 391 H (70-110) mg/dL 10/17/24 10/18/24 10/18/24 Range/Units 22:18 06:12 06:15 POC Glucose (mg/dL) 374 H 240 H 315 H (70-110) mg/dL Microbiology - Last 24 Hours (Table) 10/16/24 01:44 Blood Culture - Preliminary Blood Assessment and Plan Time with Patient: Less than 30
[2024-10-18] MEDS: CEFEPIME 2 GM in SODIUM CHLORIDE 0.9% 100 ML IVPB SCH (23:23)
[2024-10-19 02:42] LABS: Glucose,Whole Blood 265 mg/dL (70-110)
[2024-10-19] MEDS: INSULIN LISPRO (HumaLOG) 100 UNIT/ML 10 mL VL SQ SCH ×2 (03:12→12:12)
[2024-10-19 06:56] LABS: Glucose,Whole Blood 273 mg/dL (70-110)
[2024-10-19] MEDS: CEFEPIME 2 GM in SODIUM CHLORIDE 0.9% 100 ML IVPB SCH (08:43)
[2024-10-19 11:35] LABS: Glucose,Whole Blood 356 mg/dL (70-110)
[2024-10-19] MEDS: INSULIN GLARGINE (LANTUS) 100 UNIT/ML SYR SQ ONE (12:12)
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
--- NOTE | 2024-10-19 17:02 | P.PN ---
Subjective Progress Note Date: 10/18/24 Principal diagnosis: Reason for follow-up is pneumonia Patient is a 79-year-old male with a past medical history significant for Atrial Fibrillation, Chest Pain / Angina, COPD, Diabetes Mellitus, Hyperlipidemia, Hypertension, Osteoarthritis (OA), Pneumonia, Prostate Disorder, Supraventricular Tachycardia (SVT) recently treated for course of pneumonia presented to hospital with increasing shortness of breath and cough did have abnormal x-ray concerning for pneumonia with a fever. On today's evaluation that is 10/18/2024, patient has been afebrile, patient is breathing slightly comfortably and is currently on 4 L nasal oxygen, patient denies having any chest pain and cough has decreased in intensity, patient denies nausea vomiting or diarrhea and no abdominal pain Patient white count is 8.25 creatinine 1.56 blood and sputum cultures pending Objective - Vital Signs Vital signs: Vital Signs Temp 97.7 F 10/18/24 07:47 Pulse 78 10/18/24 12:15 Resp 18 10/18/24 07:47 BP 128/57 10/18/24 07:47 Pulse Ox 98 10/18/24 07:47 FiO2 Intake & Output 10/17/24 10/18/24 10/18/24 18:59 06:59 18:59 Output Total 1800 400 452 Balance -1800 -400 -452 Weight 86.183 kg 91 kg Output: Urine 1800 400 260 Post Void Residual 192 Other: Voiding Method Toilet Bedside Commode # Voids 2 1 - Exam GENERAL DESCRIPTION: An elderly male up in the chair in no distress RESPIRATORY SYSTEM: Unlabored breathing , decreased breath sounds at bases HEART: S1 S2 regular rate and rhythm , ABDOMEN: Soft , no tenderness EXTREMITIES: No edema feet - Labs CBC & Chem 7: 10/18/24 10:23 10/18/24 10:23 Labs: Abnormal Lab Results - Last 24 Hours (Table) 10/17/24 10/17/24 10/17/24 Range/Units 14:59 17:44 22:18 RBC (4.40-5.60) 10*6/uL Hgb (13.0-17.0) g/dL Hct (39.6-50.0) % MCHC (32.0-37.0) g/dL RDW (11.5-14.5) % Immature Gran # (0.00-0.04) 10*3/uL Neutrophils # (Manual) (1.3-7.7) k/uL Lymphocytes # (Manual) (1.0-4.8) k/uL Chloride (98-107) mmol/L Carbon Dioxide (22-30) mmol/L BUN (9-20) mg/dL Creatinine (0.66-1.25) mg/dL Glucose (74-99) mg/dL POC Glucose (mg/dL) 303 H 391 H 374 H (70-110) mg/dL Calcium (8.4-10.2) mg/dL Magnesium (1.6-2.3) mg/dL 10/18/24 10/18/24 10/18/24 Range/Units 06:12 06:15 10:23 RBC (4.40-5.60) 10*6/uL Hgb (13.0-17.0) g/dL Hct (39.6-50.0) % MCHC (32.0-37.0) g/dL RDW (11.5-14.5) % Immature Gran # (0.00-0.04) 10*3/uL Neutrophils # (Manual) (1.3-7.7) k/uL Lymphocytes # (Manual) (1.0-4.8) k/uL Chloride 111 H (98-107) mmol/L Carbon Dioxide 18 L (22-30) mmol/L BUN 44 H (9-20) mg/dL Creatinine 1.56 H (0.66-1.25) mg/dL Glucose 338 H (74-99) mg/dL POC Glucose (mg/dL) 240 H 315 H (70-110) mg/dL Calcium 8.3 L (8.4-10.2) mg/dL Magnesium 2.7 H (1.6-2.3) mg/dL 10/18/24 10/18/24 Range/Units 10:23 11:43 RBC 3.23 L (4.40-5.60) 10*6/uL Hgb 9.5 L (13.0-17.0) g/dL Hct 30.2 L (39.6-50.0) % MCHC 31.5 L (32.0-37.0) g/dL RDW 16.5 H (11.5-14.5) % Immature Gran # 0.16 H (0.00-0.04) 10*3/uL Neutrophils # (Manual) 7.76 H (1.3-7.7) k/uL Lymphocytes # (Manual) 0.25 L (1.0-4.8) k/uL Chloride (98-107) mmol/L Carbon Dioxide (22-30) mmol/L BUN (9-20) mg/dL Creatinine (0.66-1.25) mg/dL Glucose (74-99) mg/dL POC Glucose (mg/dL) 359 H (70-110) mg/dL Calcium (8.4-10.2) mg/dL Magnesium (1.6-2.3) mg/dL Microbiology - Last 24 Hours (Table) 10/16/24 01:44 Blood Culture - Preliminary Blood Assessment and Plan (1) Pneumonia Current Visit: Yes Status: Acute Code(s): J18.9 - PNEUMONIA, UNSPECIFIED ORGANISM SNOMED Code(s): 344900031 Plan: 1patient presented to the hospital with increasing shortness of breath and cough bringing up some yellow sputum in this patient did have low-grade fever with evidence of pneumonia chest x-ray in this patient who recently completed course of oral Ceftin and sputum culture at that time were positive for Serratia and Yersinia species will need to cover for more resistant gram-negative pathogen than the regular community-acquired pathogen for this episode of pneumonia 2- sputum for Gram stain culture and blood cultures currently pending 3-patient mention some improvement in symptoms to continue with cefepime 2 g every 8 hours while waiting for repeat sputum culture to be finalized Dictation was produced using [employer] dictation software. please excuse any grammatical, word or spelling errors. Time with Patient: Less than 30
--- NOTE | 2024-10-19 17:03 | P.PN ---
Subjective Progress Note Date: 10/19/24 Principal diagnosis: Reason for follow-up is pneumonia Patient is a 79-year-old male with a past medical history significant for Atrial Fibrillation, Chest Pain / Angina, COPD, Diabetes Mellitus, Hyperlipidemia, Hypertension, Osteoarthritis (OA), Pneumonia, Prostate Disorder, Supraventricular Tachycardia (SVT) recently treated for course of pneumonia presented to hospital with increasing shortness of breath and cough did have abnormal x-ray concerning for pneumonia with a fever. On today's evaluation that is 10/19/2024, Patient is afebrile this morning patient denies having any chest pain complaining of shortness of breath on minimal exertion though denies any worsening cough or sputum production patient is currently on 4 L nasal oxygen denies any abdominal pain or diarrhea. No new lab has been obtained today blood and sputum cultures currently pending Objective - Vital Signs Vital signs: Vital Signs Temp 98.6 F 10/19/24 13:17 Pulse 76 10/19/24 17:01 Resp 19 10/19/24 13:17 BP 146/65 10/19/24 13:17 Pulse Ox 99 10/19/24 13:17 FiO2 Intake & Output 10/18/24 10/19/24 10/19/24 18:59 06:59 18:59 Output Total 452 500 Balance -452 -500 Weight 91 kg Output: Urine 260 500 Post Void Residual 192 Other: Voiding Method Toilet Toilet Toilet Bedside Commode Urinal Urinal # Voids 1 3 1 # Bowel Movements 1 - Exam GENERAL DESCRIPTION: An elderly male up in the chair in no distress RESPIRATORY SYSTEM: Unlabored breathing , decreased breath sounds at bases HEART: S1 S2 regular rate and rhythm , ABDOMEN: Soft , no tenderness EXTREMITIES: No edema feet - Labs CBC & Chem 7: 10/18/24 10:23 10/18/24 10:23 Labs: Abnormal Lab Results - Last 24 Hours (Table) 10/18/24 10/19/24 10/19/24 Range/Units 20:27 02:40 06:55 POC Glucose (mg/dL) 379 H 265 H 273 H (70-110) mg/dL 10/19/24 Range/Units 11:26 POC Glucose (mg/dL) 356 H (70-110) mg/dL Microbiology - Last 24 Hours (Table) 10/16/24 01:44 Blood Culture - Preliminary Blood 10/18/24 12:00 Gram Stain - Preliminary Sputum Sputum Culture - Preliminary Assessment and Plan (1) Pneumonia Current Visit: Yes Status: Acute Code(s): J18.9 - PNEUMONIA, UNSPECIFIED ORGANISM SNOMED Code(s): 173604535 Plan: 1patient presented to the hospital with increasing shortness of breath and cough bringing up some yellow sputum in this patient did have low-grade fever with evidence of pneumonia chest x-ray in this patient who recently completed course of oral Ceftin and sputum culture at that time were positive for Serratia and Yersinia species will need to cover for more resistant gram-negative pathogen than the regular community-acquired pathogen for this episode of pneumonia 2- sputum for Gram stain culture and blood cultures currently pending 3-patient currently being treated with cefepime 2 g every 8 hours while waiting for repeat sputum culture to be finalized multiple question Answered Dictation was produced using [email or web address] dictation software. please excuse any grammatical, word or spelling errors. Time with Patient: Less than 30
[2024-10-19 17:09] LABS: Glucose,Whole Blood 179 mg/dL (70-110)
[2024-10-19 20:17] LABS: Glucose,Whole Blood 303 mg/dL (70-110)
[2024-10-19] MEDS: INSULIN GLARGINE (LANTUS) 100 UNIT/ML SYR SQ SCH (20:29)
--- NOTE | 2024-10-19 23:15 | P.PN ---
Subjective Progress Note Date: 10/19/24 Patient is a 79-year-old male with a past medical history of atrial fibrillation on anticoagulation with Eliquis, hypertension, diabetes type 2 insulin- dependent, hypertension, hyperlipidemia, BPH, SVT, chronic hypoxic respiratory failure on oxygen at 4 L via nasal cannula, prior history of smoking and recent admission presents to ER with complaints of worsening shortness of breath. Patient also felt like his heart is racing fast. Was also complaining of fever at home. Complains of cough congestion and worsening dyspnea. Chest x-ray on admission showed interval increase in patchy opacities throughout the right mid to lower lung zone with questionable minimal subsegmental changes now identified in the left lung base. Differential considerations include asymmetric edema are bibasilar pneumonia. EKG showed sinus tachycardia 2D echocardiogram showed LVEF 55 to 60%. Moderate concentric LVH. Normal RV size and systolic function. Severe aortic stenosis with mean gradient of 40 mmHg tricuspid regurgitation. RVSP estimated at 32 mmHg. Laboratory data showed WBC 5.65, hemoglobin 12.2 and platelets 189, neutrophils 88.2% Sodium 137 potassium 4.2 chloride 104 bicarb is 22 BUN 36 and creatinine 1.2 and blood sugar 140 A1c 8.8 lactic acid 3.3 Troponin 0.025, proBNP 416 patient was tachypneic and tachycardic on admission 10/17/2024 Patient is currently sitting in the chair. Awake alert and oriented x 3. Shortness of breath better compared to yesterday. No complaints of chest pain. No nausea or vomiting. Patient is being continued on antibiotics and home cefepime. Also on DuoNebs an d IV Solu-Medrol. Patient is hyperglycemic likely due to steroids and insulin regimen has been adjusted. Home show WBC 10.0 hemoglobin 10.7 platelets 206 sodium 135 potassium 4.9 chloride 106 bicarb is 18 BUN 48 and creatinine 2.01 and blood sugar 348. A1c 9.1 10/18/2024 Patient evaluated today sitting up at the bedside. He continues to report significant shortness of breath. He is continued on IV cefepime and IV solumedrol. Blood glucose remains elevated and lantus has been increased to 20 units twice daily. Sputum culture has been sent today. 10/19/2024 Patient evaluated today sitting up at the bedside with family present. Concerned about home insulin regimen and discussed currently insulin has been titrated because of the hyperglycemia and will be further adjusted on discharge. Patient remains significantly short of breath with activity. Continues to report productive cough. Sputum culture pending. Continues on IV cefepime. Review of Systems Constitutional: Denied any fatigue denied any fever. Cardio vascular: denied any chest pain, palpitations Gastrointestinal: denied any nausea, vomiting, diarrhea Pulmonary: Reports shortness of breath and cough Neurologic denied any new focal deficits All inpatient medications were reviewed and appropriate changes in these medic ations as dictated in the interval history and assessment and plan. PHYSICAL EXAMINATION: GENERAL: The patient is alert and oriented x3, not in any acute distress. Well developed, well nourished. HEENT: Pupils are round and equally reacting to light. EOMI. No scleral icterus. No conjunctival pallor. Normocephalic, atraumatic. No pharyngeal erythema. No thyromegaly. CARDIOVASCULAR: S1 and S2 present. No murmurs, rubs, or gallops. PULMONARY: Scattered ronchi ABDOMEN: Soft, nontender, nondistended, normoactive bowel sounds. No palpable organomegaly. MUSCULOSKELETAL: No joint swelling or deformity. EXTREMITIES: No cyanosis, clubbing, or pedal edema. NEUROLOGICAL: Gross neurological examination did not reveal any focal deficits. SKIN: No rashes. Assessment Acute on chronic hypoxic respiratory failure secondary to COPD and pneumonia Pneumonia with opacities throughout the right midlung and subsegmental changes in the left lung base. Sepsis secondary pneumonia Lactic acidosis 3.3 on admission Recent history of pneumonia with sputum cultures growing Serratia and yesrsinia Acute COPD exacerbation. Acute on chronic hypoxic respiratory failure requiring 4 L oxygen via nasal cannula. Patient is currently on 5 L oxygen via nasal cannula. Paroxysmal atrial fibrillation on anticoagulation with Eliquis Severe aortic stenosis with mean gradient of 40 mmHg Hyperglycemia with uncontrolled diabetes type 2 A1c 8.8 Hyperlipidemia Chronic HFpEF DVT prophylaxis patient is already on anticoagulation Plan: Patient will be continued on telemonitoring and oxygen supplementation. Continue with antibiotics cefepime, ID is on board. Follow-up sputum cultures, blood cultures. Procalcitonin level 0.78 patient was also started on IV Solu-Medrol and DuoNebs and Symbicort. Patient was started back on home medication including metoprolol, Eliquis and amiodarone. Patient is also on Jardiance and Lasix. Patient will need outpatient TAVR workup. Continue accuchecks ACHS and scheduled insulin, increase lantus Follow-up for repeat CBC and BMP. Pulmonary, cardiology and ID is on board. The impression and plan of care has been dictated by Kaylynn Lea, Nurse Practitioner as directed. Dr. Brayan MD I have performed a history and physical examination and medical decision making of this patient, discussed the same with the dictator, and agree with the dictators assessment and plan as written, documented as a scribe. Based on total visit time, I have performed more than 50% of this visit. Objective - Vital Signs Vital signs: Vital Signs Temp 98.3 F 10/19/24 19:09 Pulse 78 10/19/24 20:24 Resp 18 10/19/24 19:09 BP 144/63 10/19/24 19:09 Pulse Ox 97 10/19/24 19:09 FiO2 Intake & Output 10/19/24 10/19/24 10/20/24 06:59 18:59 06:59 Output Total 500 400 Balance -500 -400 Output: Urine 500 400 Other: Voiding Method Toilet Toilet Urinal Urinal # Voids 3 2 # Bowel Movements 1 - Labs CBC & Chem 7: 10/18/24 10:23 10/18/24 10:23 Labs: Abnormal Lab Results - Last 24 Hours (Table) 10/19/24 10/19/24 10/19/24 Range/Units 02:40 06:55 11:26 POC Glucose (mg/dL) 265 H 273 H 356 H (70-110) mg/dL 10/19/24 10/19/24 Range/Units 16:51 20:16 POC Glucose (mg/dL) 179 H 303 H (70-110) mg/dL Microbiology - Last 24 Hours (Table) 10/16/24 01:44 Blood Culture - Preliminary Blood 10/18/24 12:00 Gram Stain - Preliminary Sputum Sputum Culture - Preliminary Assessment and Plan Time with Patient: Less than 30
[2024-10-20 02:16] LABS: Glucose,Whole Blood 244 mg/dL (70-110)
[2024-10-20 06:06] LABS: Glucose,Whole Blood 254 mg/dL (70-110)
--- NOTE | 2024-10-20 08:06 | XR ---
EXAMINATION TYPE: XR chest 1V DATE OF EXAM: 10/20/2024 6:49 AM COMPARISON: 10/17/2024 CLINICAL INDICATION: Male, 79 years old with history of pneumonia, TECHNIQUE: XR chest 1V view(s) obtained. FINDINGS: The heart size is prominent. The pulmonary vasculature is normal. There is a consolidation within the periphery of the right mid and lower lung field. There is silhoue tting of the diaphragm. Correlate for pneumonia and pleural effusion. Continued follow-up is recommen ded. Findings are worsening. IMPRESSION: 1. Worsening right lower lung opacity correlate for pneumonia and pleural effusion. Persistent infilt rate remains in the lateral right lung. [facility], , 10/20/2024 8:04 AM
[2024-10-20 09:13] LABS: Basophils # (A) 0.00 10*3/uL (0.00-0.10); Basophils % (A) 0.0 %; Eosinophils # (A) 0.00 10*3/uL (0.04-0.35); Eosinophils % (A) 0.0 %; HCT 31.8 % (39.6-50.0); HGB 9.9 g/dL (13.0-17.0); Lymphocytes # (A) 0.42 10*3/uL (0.90-5.00); Lymphocytes % (A) 6.7 %; MCH 28.7 pg (27.0-32.0); MCHC 31.1 g/dL (32.0-37.0); MCV 92.2 fL (80.0-97.0); Monocytes # (A) 0.23 10*3/uL (0.20-1.00); Monocytes % (A) 3.7 %; Neutrophils # (A) 5.56 10*3/uL (1.80-7.70); Neutrophils % (A) 88.5 %; Platelet Count 232 10*3/uL (140-440); RBC 3.45 10*6/uL (4.40-5.60); RDW 16.4 % (11.5-14.5); WBC 6.28 10*3/uL (4.50-10.00)
[2024-10-20 09:24] LABS: African American GFR (CKD) 57 (>60 ml/min/1.73 sqM); Anion Gap 8 mmol/L; Blood Urea Nitrogen 36 mg/dL (9-20); Calcium 8.9 mg/dL (8.4-10.2); Carbon Dioxide 22 mmol/L (22-30); Chloride 110 mmol/L (98-107); Glucose 138 mg/dL (74-99); Non-African American GFR(CKD) 50 (>60 ml/min/1.73 sqM); Potassium 4.3 mmol/L (3.5-5.1); Sodium 140 mmol/L (137-145)
[2024-10-20 11:18] LABS: Glucose,Whole Blood 327 mg/dL (70-110)
--- NOTE | 2024-10-20 14:05 | P.PN ---
Subjective Progress Note Date: 10/20/24 Patient is a 79-year-old male with a past medical history of atrial fibrillation on anticoagulation with Eliquis, hypertension, diabetes type 2 insulin- dependent, hypertension, hyperlipidemia, BPH, SVT, chronic hypoxic respiratory failure on oxygen at 4 L via nasal cannula, prior history of smoking and recent admission presents to ER with complaints of worsening shortness of breath. Patient also felt like his heart is racing fast. Was also complaining of fever at home. Complains of cough congestion and worsening dyspnea. Chest x-ray on admission showed interval increase in patchy opacities throughout the right mid to lower lung zone with questionable minimal subsegmental changes now identified in the left lung base. Differential considerations include asymmetric edema are bibasilar pneumonia. EKG showed sinus tachycardia 2D echocardiogram showed LVEF 55 to 60%. Moderate concentric LVH. Normal RV size and systolic function. Severe aortic stenosis with mean gradient of 40 mmHg tricuspid regurgitation. RVSP estimated at 32 mmHg. Laboratory data showed WBC 5.65, hemoglobin 12.2 and platelets 189, neutrophils 88.2% Sodium 137 potassium 4.2 chloride 104 bicarb is 22 BUN 36 and creatinine 1.2 and blood sugar 140 A1c 8.8 lactic acid 3.3 Troponin 0.025, proBNP 416 patient was tachypneic and tachycardic on admission 10/17/2024 Patient is currently sitting in the chair. Awake alert and oriented x 3. Shortness of breath better compared to yesterday. No complaints of chest pain. No nausea or vomiting. Patient is being continued on antibiotics and home cefepime. Also on DuoNebs an d IV Solu-Medrol. Patient is hyperglycemic likely due to steroids and insulin regimen has been adjusted. Home show WBC 10.0 hemoglobin 10.7 platelets 206 sodium 135 potassium 4.9 chloride 106 bicarb is 18 BUN 48 and creatinine 2.01 and blood sugar 348. A1c 9.1 10/18/2024 Patient evaluated today sitting up at the bedside. He continues to report significant shortness of breath. He is continued on IV cefepime and IV solumedrol. Blood glucose remains elevated and lantus has been increased to 20 units twice daily. Sputum culture has been sent today. 10/19/2024 Patient evaluated today sitting up at the bedside with family present. Concerned about home insulin regimen and discussed currently insulin has been titrated because of the hyperglycemia and will be further adjusted on discharge. Patient remains significantly short of breath with activity. Continues to report productive cough. Sputum culture pending. Continues on IV cefepime. 10/20/2024 Patient is evaluated in follow-up with the medical floor. Chest x-ray reveals worsening right lower lung opacity correlate for pneumonia and pleural effusion. Persistent infiltrate remains in the lateral right lung. White blood cell coun t remains normal. Patient is currently 98% on 5 L of oxygen via nasal cannula which can be titrated down further. His sputum culture is final and negative at this time. Blood work is improving with a BUN of 36 and creatinine of 1.36. He is continued on oral Lasix daily. He continues on high-dose IV Solu-Medrol 60 mg every 6 hours. He is on IV cefepime. Review of Systems Constitutional: Denied any fatigue denied any fever. Cardio vascular: denied any chest pain, palpitations Gastrointestinal: denied any nausea, vomiting, diarrhea Pulmonary: Reports shortness of breath and cough Neurologic denied any new focal deficits All inpatient medications were reviewed and appropriate changes in these medications as dictated in the interval history and assessment and plan. PHYSICAL EXAMINATION: GENERAL: The patient is alert and oriented x3, not in any acute distress. Well developed, well nourished. HEENT: Pupils are round and equally reacting to light. EOMI. No scleral icterus. No conjunctival pallor. Normocephalic, atraumatic. No pharyngeal erythema. No thyromegaly. CARDIOVASCULAR: S1 and S2 present. No murmurs, rubs, or gallops. PULMONARY: Scattered ronchi ABDOMEN: Soft, nontender, nondistended, normoactive bowel sounds. No palpable organomegaly. MUSCULOSKELETAL: No joint swelling or deformity. EXTREMITIES: No cyanosis, clubbing, or pedal edema. NEUROLOGICAL: Gross neurological examination did not reveal any focal deficits. SKIN: No rashes. Assessment Acute on chronic hypoxic respiratory failure secondary to COPD and pneumonia Pneumonia with opacities throughout the right midlung and subsegmental changes in the left lung base. Sepsis secondary pneumonia Lactic acidosis 3.3 on admission Recent history of pneumonia with sputum cultures growing Serratia and yesrsinia Acute COPD exacerbation. Acute on chronic hypoxic respiratory failure requiring 4 L oxygen via nasal cannula. Patient is currently on 5 L oxygen via nasal cannula. Paroxysmal atrial fibrillation on anticoagulation with Eliquis Severe aortic stenosis with mean gradient of 40 mmHg Hyperglycemia with uncontrolled diabetes type 2 A1c 8.8 Hyperlipidemia Chronic HFpEF DVT prophylaxis patient is already on anticoagulation Plan: Patient will be continued on telemonitoring and oxygen supplementation. Continue with antibiotics cefepime, ID is on board. Follow-up sputum cultures, blood cultures. Procalcitonin level 0.78 patient was also started on IV Solu-Medrol and DuoNebs and Symbicort. Patient was started back on home medication including metoprolol, Eliquis and amiodarone. Patient is also on Jardiance and Lasix. Patient will need outpatient TAVR workup. Continue accuchecks ACHS and scheduled insulin, lantus Check BNP Follow-up for repeat CBC and BMP. Pulmonary, cardiology and ID is on board. The impression and plan of care has been dictated by Kaylynn Lea, Nurse Practitioner as directed. Dr. Brayan MD I have performed a history and physical examination and medical decision making of this patient, discussed the same with the dictator, and agree with the dictators assessment and plan as written, documented as a scribe. Based on total visit time, I have performed more than 50% of this visit. Objective - Vital Signs Vital signs: Vital Signs Temp 98.6 F 10/20/24 07:14 Pulse 80 10/20/24 08:32 Resp 17 10/20/24 07:14 BP 143/65 10/20/24 07:14 Pulse Ox 99 10/20/24 07:14 FiO2 Intake & Output 10/19/24 10/20/24 10/20/24 18:59 06:59 18:59 Output Total 400 Balance -400 Output: Urine 400 Other: Voiding Method Toilet Toilet Urinal Urinal # Voids 2 3 # Bowel Movements 1 - Labs CBC & Chem 7: 10/20/24 08:14 10/20/24 08:14 Labs: Abnormal Lab Results - Last 24 Hours (Table) 10/19/24 10/19/24 10/19/24 Range/Units 11:26 16:51 20:16 RBC (4.40-5.60) 10*6/uL Hgb (13.0-17.0) g/dL Hct (39.6-50.0) % MCHC (32.0-37.0) g/dL RDW (11.5-14.5) % Immature Gran # (0.00-0.04) 10*3/uL Lymphocytes # (0.90-5.00) 10*3/uL Eosinophils # (0.04-0.35) 10*3/uL Chloride (98-107) mmol/L BUN (9-20) mg/dL Creatinine (0.66-1.25) mg/dL Glucose (74-99) mg/dL POC Glucose (mg/dL) 356 H 179 H 303 H (70-110) mg/dL 10/20/24 10/20/24 10/20/24 Range/Units 02:14 06:05 08:14 RBC 3.45 L (4.40-5.60) 10*6/uL Hgb 9.9 L (13.0-17.0) g/dL Hct 31.8 L (39.6-50.0) % MCHC 31.1 L (32.0-37.0) g/dL RDW 16.4 H (11.5-14.5) % Immature Gran # 0.07 H (0.00-0.04) 10*3/uL Lymphocytes # 0.42 L (0.90-5.00) 10*3/uL Eosinophils # 0.00 L (0.04-0.35) 10*3/uL Chloride (98-107) mmol/L BUN (9-20) mg/dL Creatinine (0.66-1.25) mg/dL Glucose (74-99) mg/dL POC Glucose (mg/dL) 244 H 254 H (70-110) mg/dL 10/20/24 Range/Units 08:14 RBC (4.40-5.60) 10*6/uL Hgb (13.0-17.0) g/dL Hct (39.6-50.0) % MCHC (32.0-37.0) g/dL RDW (11.5-14.5) % Immature Gran # (0.00-0.04) 10*3/uL Lymphocytes # (0.90-5.00) 10*3/uL Eosinophils # (0.04-0.35) 10*3/uL Chloride 110 H (98-107) mmol/L BUN 36 H (9-20) mg/dL Creatinine 1.36 H (0.66-1.25) mg/dL Glucose 138 H (74-99) mg/dL POC Glucose (mg/dL) (70-110) mg/dL Microbiology - Last 24 Hours (Table) 10/18/24 12:00 Gram Stain - Final Sputum Sputum Culture - Final 10/16/24 01:44 Blood Culture - Preliminary Blood Assessment and Plan Time with Patient: Less than 30
[2024-10-20 16:17] LABS: Glucose,Whole Blood 184 mg/dL (70-110)
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
[2024-10-20 22:14] LABS: Glucose,Whole Blood 232 mg/dL (70-110)
[2024-10-20] MEDS: FUROSEMIDE 10 MG/ML 4 ML VIAL IV SCH (22:21)
[2024-10-21 01:50] LABS: Glucose,Whole Blood 359 mg/dL (70-110)
[2024-10-21 06:14] LABS: Glucose,Whole Blood 267 mg/dL (70-110)
[2024-10-21 07:55] LABS: HCT 32.0 % (39.6-50.0); HGB 9.9 g/dL (13.0-17.0); MCH 28.8 pg (27.0-32.0); MCHC 30.9 g/dL (32.0-37.0); MCV 93.0 FL (80.0-97.0); NRBC Per 100 WBC 0.13 X 10*3/uL (0.00-0.01); Platelet Count 220 X 10*3/uL (140-440); RBC 3.44 X 10*6/uL (4.40-5.60); RDW 16.2 % (11.5-14.5); WBC 7.65 X 10*3/uL (4.50-10.00)
[2024-10-21 07:56] LABS: Basophils # (A) 0.02 X 10*3/uL (0.00-0.10); Basophils % (A) 0.3 %; Eosinophils # (A) 0 X 10*3/uL (0.04-0.35); Eosinophils % (A) 0 %; Immature Grans, Automated 2.10 %; Lymphocytes # (A) 0.34 X 10*3/uL (0.90-5.00); Lymphocytes % (A) 4.4 %; Monocytes # (A) 0.38 X 10*3/uL (0.20-1.00); Monocytes % (A) 5.0 %; Neutrophils # (A) 6.75 X 10*3/uL (1.80-7.70); Neutrophils % (A) 88.2 %
[2024-10-21 08:06] LABS: Anion Gap 11.60 mmol/L (4.00-12.00); BUN/Creat Ratio 30.31 Ratio (12.00-20.00); Blood Urea Nitrogen 39.4 mg/dL (9.0-27.0); Calcium 8.7 mg/dL (8.7-10.3); Carbon Dioxide 22.4 mmol/L (21.6-31.8); Chloride 106 mmol/L (96-109); Glucose 310 mg/dL (70-110); Potassium 4.7 mmol/L (3.5-5.5); Sodium 140 mmol/L (135-145)
[2024-10-21 11:14] LABS: Glucose,Whole Blood 95 mg/dL (70-110)
[2024-10-21] MEDS ORDERED: PROPOFOL 10 MG/ML 20 ML VIAL IV ONE (13:10)
[2024-10-21] MEDS ORDERED: fentaNYL (PF) 50 MCG/ML 2 ML AMP ONE (13:10)
[2024-10-21] MEDS ORDERED: MIDAZOLAM 2 MG/2 ML VIAL ONE (13:10)
[2024-10-21] MEDS ORDERED: KETAMINE HCL IN 0.9 % NACL 50 MG/5 ML SYRINGE ONE (13:10)
[2024-10-21] MEDS: IV FLUID CONTINUATION 1,000 ML IV ONE (13:22)
[2024-10-21 13:42] VITALS: BMI 30.9
[2024-10-21 16:13] LABS: Glucose,Whole Blood 317 mg/dL (70-110)
--- NOTE | 2024-10-21 16:23 | P.PN ---
Subjective Progress Note Date: 10/21/24 Interval History: Patient is a 79-year-old male with a past medical history of atrial fibrillation on anticoagulation with Eliquis, hypertension, diabetes type 2 insulin- dependent, hypertension, hyperlipidemia, BPH, SVT, chronic hypoxic respiratory failure on oxygen at 4 L via nasal cannula, prior history of smoking and recent admission presents to ER with complaints of worsening shortness of breath. Tam sinclair also felt like his heart is racing fast. Was also complaining of fever at home. Complains of cough congestion and worsening dyspnea. Chest x-ray on admission showed interval increase in patchy opacities throughout the right mid to lower lung zone with questionable minimal subsegmental changes now identified in the left lung base. Differential considerations include asymmetric edema are bibasilar pneumonia. EKG showed sinus tachycardia 2D echocardiogram showed LVEF 55 to 60%. Moderate concentric LVH. Normal RV size and systolic function. Severe aortic stenosis with mean gradient of 40 mmHg tricuspid regurgitation. RVSP estimated at 32 mmHg. Laboratory data showed WBC 5.65, hemoglobin 12.2 and platelets 189, neutrophils 88.2% Sodium 137 potassium 4.2 chloride 104 bicarb is 22 BUN 36 and creatinine 1.2 and blood sugar 140 A1c 8.8 lactic acid 3.3 Troponin 0.025, proBNP 416 patient was tachypneic and tachycardic on admission 10/17/2024 Patient is currently sitting in the chair. Awake alert and oriented x 3. Shortness of breath better compared to yesterday. No complaints of chest pain. No nausea or vomiting. Patient is being continued on antibiotics and home cefepime. Also on DuoNebs and IV Solu-Medrol. Patient is hyperglycemic likely due to steroids and insulin regimen has been adjusted. Home show WBC 10.0 hemoglobin 10.7 platelets 206 sodium 135 potassium 4.9 chloride 106 bicarb is 18 BUN 48 and creatinine 2.01 and blood sugar 348. A1c 9.1 10/18/2024 Patient evaluated today sitting up at the bedside. He continues to report significant shortness of breath. He is continued on IV cefepime and IV solumedrol. Blood glucose remains elevated and lantus has been increased to 20 units twice daily. Sputum culture has been sent today. 10/19/2024 Patient evaluated today sitting up at the bedside with family present. Concerned about home insulin regimen and discussed currently insulin has been titrated because of the hyperglycemia and will be further adjusted on discharge. Patient remains significantly short of breath with activity. Continues to report pro ductive cough. Sputum culture pending. Continues on IV cefepime. 10/20/2024 Patient is evaluated in follow-up with the medical floor. Chest x-ray reveals worsening right lower lung opacity correlate for pneumonia and pleural effusion. Persistent infiltrate remains in the lateral right lung. White blood cell count remains normal. Patient is currently 98% on 5 L of oxygen via nasal cannula which can be titrated down further. His sputum culture is final and negative at this time. Blood work is improving with a BUN of 36 and creatinine of 1.36. He is continued on oral Lasix daily. He continues on high-dose IV Solu-Medrol 60 mg every 6 hours. He is on IV cefepime. 10/21--patient was seen and examined today. Patient is afebrile, currently on 5 L oxygen by nasal cannula. Remains on cefepime, infectious disease following. Pulmonary following, patient underwent bronchoscopy today. Remains on IV diuresis for fluid overload. On bronchodilator protocol and Solu-Medrol. On Eliquis for atrial fibrillation. Assessment and plan: Assessment: Acute on chronic hypoxic respiratory failure secondary to COPD and pneumonia Pneumonia with opacities throughout the right midlung and subsegmental changes in the left lung base. Sepsis secondary pneumonia Lactic acidosis 3.3 on admission Recent history of pneumonia with sputum cultures growing Serratia and yesrsinia Acute COPD exacerbation. Acute on chronic hypoxic respiratory failure requiring 4 L oxygen via nasal cannula. Patient is currently on 5 L oxygen via nasal cannula. Paroxysmal atrial fibrillation on anticoagulation with Eliquis Severe aortic stenosis with mean gradient of 40 mmHg Hyperglycemia with uncontrolled diabetes type 2 A1c 8.8 Hyperlipidemia Acute on chronic diastolic CHF HFpEF DVT prophylaxis patient is already on anticoagulation Plan: Patient will be continued on telemonitoring and oxygen supplementation. Continue with antibiotics cefepime, ID is on board. Follow-up sputum cultures, blood cultures. Procalcitonin level 0.78 patient was also started on IV Solu-Medrol and DuoNebs and Symbicort. Patient was started back on home medication including metoprolol, Eliquis and amiodarone. Patient is also on Jardiance and Lasix. Patient will need outpatient TAVR workup. Continue accuchecks ACHS and scheduled insulin, lantus Check BNP Follow-up for repeat CBC and BMP. Pulmonary, cardiology and ID is on board. Status post bronchoscopy 10/21. Monitor vital signs and labs Labs and medication were reviewed. Continue same treatment. Further recommendations as per clinical course of the patient PHYSICAL EXAMINATION: GENERAL: The patient is A&O x3, NAD HEENT: EOMI, Sclerae anicteric, Moist Mucous membranes Neck: Supple, Non tender, No JVD PULMONARY: Decreased breath sound bilaterally, bilateral crackles. CARDIOVASCULAR: S1, S2 present. No murmurs, rubs, or gallops. ABDOMEN: Soft, nontender, nondistended, normoactive bowel sounds. No guarding or rebound tenderness. MUSCULOSKELETAL: + edema, No cyanosis. No clubbing. Normal ROM. Intact peripheral pulses. NEUROLOGICAL: CN 2-12 grossly intact. No FND Skin: No Rash REVIEW OF SYSTEMS: CONSTITUTIONAL: No fever or chills. CARDIOVASCULAR: No chest pain, palpitations or syncope. PULMONARY: No shortness of breath, no cough, sore throat. GASTROINTESTINAL: No nausea, vomiting, diarrhea, abdominal pain. : No Dysuria, urgency, frequency. Extremities: No edema. NEUROLOGICAL: No headaches, no weakness, or numbness Dictation was produced using [employer] dictation software. please excuse any grammatical, word or spelling errors. Objective - Vital Signs Vital signs: Vital Signs Temp 98.0 F 10/21/24 07:00 Pulse 83 10/21/24 15:52 Resp 16 10/21/24 07:00 BP 144/70 10/21/24 07:00 Pulse Ox 96 10/21/24 07:00 FiO2 Intake & Output 10/20/24 10/21/24 10/21/24 18:59 06:59 18:59 Intake Total 100 Output Total 1400 Balance -1400 100 Weight 92.1 kg 92.1 kg Intake: IV 100 Output: Urine 1400 Other: Voiding Method Toilet Urinal # Voids 5 - Labs CBC & Chem 7: 10/21/24 03:50 10/21/24 03:50 Labs: Abnormal Lab Results - Last 24 Hours (Table) 10/20/24 10/21/24 10/21/24 Range/Units 22:12 01:46 03:50 RBC 3.44 L (4.40-5.60) X 10*6/uL Hgb 9.9 L (13.0-17.0) g/dL Hct 32.0 L (39.6-50.0) % MCHC 30.9 L (32.0-37.0) g/dL RDW 16.2 H (11.5-14.5) % Immature Gran # 0.16 H (0.00-0.04) X 10*3/uL Lymphocytes # 0.34 L (0.90-5.00) X 10*3/uL Eosinophils # 0 L (0.04-0.35) X 10*3/uL NRBC/100 WBC Diff 0.13 H (0.00-0.01) X 10*3/uL BUN (9.0-27.0) mg/dL Est GFR (CKD-EPI) (>=60) BUN/Creatinine Ratio (12.00-20.00) Ratio Glucose (70-110) mg/dL POC Glucose (mg/dL) 232 H 359 H (70-110) mg/dL 10/21/24 10/21/24 10/21/24 Range/Units 03:50 06:13 16:12 RBC (4.40-5.60) X 10*6/uL Hgb (13.0-17.0) g/dL Hct (39.6-50.0) % MCHC (32.0-37.0) g/dL RDW (11.5-14.5) % Immature Gran # (0.00-0.04) X 10*3/uL Lymphocytes # (0.90-5.00) X 10*3/uL Eosinophils # (0.04-0.35) X 10*3/uL NRBC/100 WBC Diff (0.00-0.01) X 10*3/uL BUN 39.4 H (9.0-27.0) mg/dL Est GFR (CKD-EPI) 56 L (>=60) BUN/Creatinine Ratio 30.31 H (12.00-20.00) Ratio Glucose 310 H (70-110) mg/dL POC Glucose (mg/dL) 267 H 317 H (70-110) mg/dL Microbiology - Last 24 Hours (Table) 10/16/24 01:44 Blood Culture - Final Blood
--- NOTE | 2024-10-21 16:45 | P.PN ---
Subjective Progress Note Date: 10/20/24 Principal diagnosis: Reason for follow-up is pneumonia Patient is a 79-year-old male with a past medical history significant for Atrial Fibrillation, Chest Pain / Angina, COPD, Diabetes Mellitus, Hyperlipidemia, Hypertension, Osteoarthritis (OA), Pneumonia, Prostate Disorder, Supraventricular Tachycardia (SVT) recently treated for course of pneumonia presented to hospital with increasing shortness of breath and cough did have abnormal x-ray concerning for pneumonia with a fever. On today's evaluation that is 10/20/2024,the patient denies any fever or any chills, patient is breathing slightly comfortably on 3 L nasal oxygen, the patient denies chest pain shortness of breath and no worsening cough, patient denies abdominal pain, no nausea vomiting or diarrhea. Patient white count 6.28 creatinine is 1.36 Objective - Vital Signs Vital signs: Vital Signs Temp 98.6 F 10/20/24 07:14 Pulse 84 10/20/24 12:13 Resp 17 10/20/24 07:14 BP 143/65 10/20/24 07:14 Pulse Ox 99 10/20/24 07:14 FiO2 Intake & Output 10/19/24 10/20/24 10/20/24 18:59 06:59 18:59 Output Total 400 Balance -400 Output: Urine 400 Other: Voiding Method Toilet Toilet Urinal Urinal # Voids 2 3 # Bowel Movements 1 - Exam GENERAL DESCRIPTION: An elderly male up in the chair in no distress RESPIRATORY SYSTEM: Unlabored breathing , decreased breath sounds at bases HEART: S1 S2 regular rate and rhythm , ABDOMEN: Soft , no tenderness EXTREMITIES: No edema feet - Labs CBC & Chem 7: 10/21/24 03:50 10/21/24 03:50 Labs: Abnormal Lab Results - Last 24 Hours (Table) 10/19/24 10/19/24 10/20/24 Range/Units 16:51 20:16 02:14 RBC (4.40-5.60) 10*6/uL Hgb (13.0-17.0) g/dL Hct (39.6-50.0) % MCHC (32.0-37.0) g/dL RDW (11.5-14.5) % Immature Gran # (0.00-0.04) 10*3/uL Lymphocytes # (0.90-5.00) 10*3/uL Eosinophils # (0.04-0.35) 10*3/uL Chloride (98-107) mmol/L BUN (9-20) mg/dL Creatinine (0.66-1.25) mg/dL Glucose (74-99) mg/dL POC Glucose (mg/dL) 179 H 303 H 244 H (70-110) mg/dL 10/20/24 10/20/24 10/20/24 Range/Units 06:05 08:14 08:14 RBC 3.45 L (4.40-5.60) 10*6/uL Hgb 9.9 L (13.0-17.0) g/dL Hct 31.8 L (39.6-50.0) % MCHC 31.1 L (32.0-37.0) g/dL RDW 16.4 H (11.5-14.5) % Immature Gran # 0.07 H (0.00-0.04) 10*3/uL Lymphocytes # 0.42 L (0.90-5.00) 10*3/uL Eosinophils # 0.00 L (0.04-0.35) 10*3/uL Chloride 110 H (98-107) mmol/L BUN 36 H (9-20) mg/dL Creatinine 1.36 H (0.66-1.25) mg/dL Glucose 138 H (74-99) mg/dL POC Glucose (mg/dL) 254 H (70-110) mg/dL 10/20/24 Range/Units 11:17 RBC (4.40-5.60) 10*6/uL Hgb (13.0-17.0) g/dL Hct (39.6-50.0) % MCHC (32.0-37.0) g/dL RDW (11.5-14.5) % Immature Gran # (0.00-0.04) 10*3/uL Lymphocytes # (0.90-5.00) 10*3/uL Eosinophils # (0.04-0.35) 10*3/uL Chloride (98-107) mmol/L BUN (9-20) mg/dL Creatinine (0.66-1.25) mg/dL Glucose (74-99) mg/dL POC Glucose (mg/dL) 327 H (70-110) mg/dL Microbiology - Last 24 Hours (Table) 10/18/24 12:00 Gram Stain - Final Sputum Sputum Culture - Final 10/16/24 01:44 Blood Culture - Preliminary Blood Assessment and Plan (1) Pneumonia Current Visit: Yes Status: Acute Code(s): J18.9 - PNEUMONIA, UNSPECIFIED ORGANISM SNOMED Code(s): 470358368 Plan: 1patient presented to the hospital with increasing shortness of breath and cough bringing up some yellow sputum in this patient did have low-grade fever with evidence of pneumonia chest x-ray in this patient who recently completed course of oral Ceftin and sputum culture at that time were positive for Serratia and Yersinia species will need to cover for more resistant gram-negative pathogen than the regular community-acquired pathogen for this episode of pneumonia 2- sputum as well as blood culture have been negative 3-patient did have some clinical improvement to continue with cefepime 2 g every 8 hours Dictation was produced using [employer] dictation software. please excuse any grammatical, word or spelling errors. Time with Patient: Less than 30
--- NOTE | 2024-10-21 16:46 | P.PN ---
Subjective Progress Note Date: 10/21/24 Principal diagnosis: Reason for follow-up is pneumonia Patient is a 79-year-old male with a past medical history significant for Atrial Fibrillation, Chest Pain / Angina, COPD, Diabetes Mellitus, Hyperlipidemia, Hypertension, Osteoarthritis (OA), Pneumonia, Prostate Disorder, Supraventricular Tachycardia (SVT) recently treated for course of pneumonia presented to hospital with increasing shortness of breath and cough did have abnormal x-ray concerning for pneumonia with a fever. On today's evaluation that is 10/21/2024,the patient remains to be afebrile, patient is on room air not requiring supplemental oxygen and denies any shortness of breath no chest pain or cough.Patient denies having any nausea or vomiting, no abdominal pain and mention feeling better. No new lab has been obtained today Objective - Vital Signs Vital signs: Vital Signs Temp 98.0 F 10/21/24 07:00 Pulse 82 10/21/24 12:00 Resp 16 10/21/24 07:00 BP 144/70 10/21/24 07:00 Pulse Ox 96 10/21/24 07:00 FiO2 Intake & Output 10/20/24 10/21/24 10/21/24 18:59 06:59 18:59 Intake Total 100 Output Total 1400 Balance -1400 100 Weight 92.1 kg 92.1 kg Intake: IV 100 Output: Urine 1400 Other: Voiding Method Toilet Urinal # Voids 5 - Exam GENERAL DESCRIPTION: An elderly male up in the chair in no distress RESPIRATORY SYSTEM: Unlabored breathing , decreased breath sounds at bases HEART: S1 S2 regular rate and rhythm , ABDOMEN: Soft , no tenderness EXTREMITIES: No edema feet - Labs CBC & Chem 7: 10/21/24 03:50 10/21/24 03:50 Labs: Abnormal Lab Results - Last 24 Hours (Table) 10/20/24 10/20/24 10/21/24 Range/Units 16:17 22:12 01:46 RBC (4.40-5.60) X 10*6/uL Hgb (13.0-17.0) g/dL Hct (39.6-50.0) % MCHC (32.0-37.0) g/dL RDW (11.5-14.5) % Immature Gran # (0.00-0.04) X 10*3/uL Lymphocytes # (0.90-5.00) X 10*3/uL Eosinophils # (0.04-0.35) X 10*3/uL NRBC/100 WBC Diff (0.00-0.01) X 10*3/uL BUN (9.0-27.0) mg/dL Est GFR (CKD-EPI) (>=60) BUN/Creatinine Ratio (12.00-20.00) Ratio Glucose (70-110) mg/dL POC Glucose (mg/dL) 184 H 232 H 359 H (70-110) mg/dL 10/21/24 10/21/24 10/21/24 Range/Units 03:50 03:50 06:13 RBC 3.44 L (4.40-5.60) X 10*6/uL Hgb 9.9 L (13.0-17.0) g/dL Hct 32.0 L (39.6-50.0) % MCHC 30.9 L (32.0-37.0) g/dL RDW 16.2 H (11.5-14.5) % Immature Gran # 0.16 H (0.00-0.04) X 10*3/uL Lymphocytes # 0.34 L (0.90-5.00) X 10*3/uL Eosinophils # 0 L (0.04-0.35) X 10*3/uL NRBC/100 WBC Diff 0.13 H (0.00-0.01) X 10*3/uL BUN 39.4 H (9.0-27.0) mg/dL Est GFR (CKD-EPI) 56 L (>=60) BUN/Creatinine Ratio 30.31 H (12.00-20.00) Ratio Glucose 310 H (70-110) mg/dL POC Glucose (mg/dL) 267 H (70-110) mg/dL Microbiology - Last 24 Hours (Table) 10/16/24 01:44 Blood Culture - Final Blood Assessment and Plan (1) Pneumonia Current Visit: Yes Status: Acute Code(s): J18.9 - PNEUMONIA, UNSPECIFIED ORGANISM SNOMED Code(s): 341653701 Plan: 1patient presented to the hospital with increasing shortness of breath and cough bringing up some yellow sputum in this patient did have low-grade fever with evidence of pneumonia chest x-ray in this patient who recently completed course of oral Ceftin and sputum culture at that time were positive for Serratia and Yersinia species will need to cover for more resistant gram-negative pathogen than the regular community-acquired pathogen for this episode of pneumonia 2- sputum as well as blood culture have been negative 3-patient did complain of shortness of breath question need for bronchoscopy lavage will discuss with pulmonary for now continue with the cefepime Dictation was produced using [employer] dictation software. please excuse any grammatical, word or spelling errors. Time with Patient: Less than 30
[2024-10-21 21:21] LABS: Glucose,Whole Blood 387 mg/dL (70-110)
[2024-10-21] MEDS: IPRATROPIUM-ALBUTEROL 3 ML NEB INHALATION PRN (22:11)
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
--- NOTE | 2024-10-21 23:02 | P.PCN ---
Date of Procedure: 10/21/24 Operative Findings: Preoperative Diagnosis: Right lower lobe pneumonia Postoperative Diagnosis: Right lower lobe pneumonia and copious amount of purulent respiratory secretions accumulated within the airways, post therapeutic airway suctioning and a bronc hial lavage of the right lower lobe Procedure(s) Performed: Flexible bronchoscopy and BAL of the right lower lobe Anesthesia: PJ Surgeon: Isael Clayton Estimated Blood Loss (ml): 0 Pathology: other Condition: stable Disposition: floor Operative Findings: The procedure was done in the endoscopy suite. The patient signed a consent. A timeout was done. Anesthetic agents was administered by anesthesia at the bedside. The flexible bronchoscopy was done. The bronchoscope was easily passed through the left nostril was advanced into the posterior pharynx and later on to the larynx. Examination of the upper airway structures showed no significant abnormalities. Epiglottis, vallecula, arytenoids and the vocal cords were all noted and they were all within normal limits. Vocal cord function and mobility was within normal limits. Following that, the bronchoscope was advanced past the vocal cord and it was moved to the upper trachea. Immediately, copious amount of purulent respiratory secretions were encountered throughout the patient's airway most abundant in the right lower lobe. Therapeutic airway suctioning was done and a total of 30 cc of purulent respiratory secretions were aspirated and suctioned out without any major difficulties. Airway inspection was completed. Underlying bronchial mucosa was inflamed and erythematous. Nevertheless, the airways were patent post therapeutic airway suctioning. Distal trachea, bilateral mainstem bronchi, right upper lobe bronchus, bronchus intermedius, right middle lobe and right lower bronchus and the various 10 segments on the right in addition to the left mainstem bronchus, left upper lobe bronchus and left lower lobe bronchus and the various 8 segments on the left were all inspected. No endobronchial tumors or lesions. At the completion of the procedure, there was adequate airway patency and the patient's secretions were suctioned out. A BAL of the right lower lobe was done. A total of 40 cc of saline was infused and 20 cc was aspirated. Procedure was terminated and the bronchoscope was removed. The BAL will be sent for cultures. No oxygen desaturation and patient was hemodynamically stable throughout the procedure.
[2024-10-22 02:47] LABS: Glucose,Whole Blood 271 mg/dL (70-110)
[2024-10-22 04:21] LABS: Appearance,BF Bloody (Clear)
[2024-10-22 06:04] LABS: Glucose,Whole Blood 254 mg/dL (70-110)
--- NOTE | 2024-10-22 07:29 | XR ---
EXAMINATION TYPE: XR chest 1V DATE OF EXAM: 10/22/2024 7:16 AM COMPARISON: 10/20/2024 CLINICAL INDICATION: Male, 79 years old with history of Follow-up pneumonia, TECHNIQUE: XR chest 1V view(s) obtained. FINDINGS: The heart size is enlarged. The pulmonary vasculature is prominent. Mild diffuse increased lung markings are present IMPRESSION: 1. Worsening lung infiltrates. Continued follow-up is recommended. [facility], , 10/22/2024 7:26 AM
[2024-10-22 08:26] LABS: Basophils # (A) 0.01 X 10*3/uL (0.00-0.10); Basophils % (A) 0.1 %; Eosinophils # (A) 0 X 10*3/uL (0.04-0.35); Eosinophils % (A) 0 %; HCT 32.6 % (39.6-50.0); HGB 10.0 g/dL (13.0-17.0); Immature Grans, Automated 2.40 %; Lymphocytes # (A) 0.38 X 10*3/uL (0.90-5.00); Lymphocytes % (A) 3.9 %; MCH 28.4 pg (27.0-32.0); MCHC 30.7 g/dL (32.0-37.0); MCV 92.6 FL (80.0-97.0); Monocytes # (A) 0.50 X 10*3/uL (0.20-1.00); Monocytes % (A) 5.1 %; NRBC Per 100 WBC 0.13 X 10*3/uL (0.00-0.01); Neutrophils # (A) 8.65 X 10*3/uL (1.80-7.70); Neutrophils % (A) 88.5 %; Platelet Count 250 X 10*3/uL (140-440); RBC 3.52 X 10*6/uL (4.40-5.60); RDW 16.4 % (11.5-14.5); WBC 9.77 X 10*3/uL (4.50-10.00)
[2024-10-22 08:35] LABS: ALT 28 U/L (10-49); AST 13 U/L (14-35); Albumin 3.2 g/dL (3.8-4.9); Albumin/Globulin Ratio 1.68 Ratio (1.60-3.17); Alkaline Phosphatase 53 U/L (41-126); Anion Gap 11.50 mmol/L (4.00-12.00); BUN/Creat Ratio 34.25 Ratio (12.00-20.00); Blood Urea Nitrogen 41.1 mg/dL (9.0-27.0); Calcium 8.5 mg/dL (8.7-10.3); Carbon Dioxide 23.5 mmol/L (21.6-31.8); Chloride 105 mmol/L (96-109); Globulin 1.9 g/dL (1.6-3.3); Glucose 245 mg/dL (70-110); Magnesium 2.3 mg/dL (1.5-2.4); Potassium 4.4 mmol/L (3.5-5.5); Sodium 140 mmol/L (135-145); Total Protein 5.1 g/dL (6.2-8.2)
[2024-10-22 10:33] LABS: Nucleated Cells, Body Fluid 1900 /UL
[2024-10-22 11:25] LABS: Glucose,Whole Blood 402 mg/dL (70-110)
[2024-10-22] MEDS ORDERED: RX INFO: IV CONTRAST WAS GIVEN 1 EACH MISC MISCELLANE PRN (13:02)
--- NOTE | 2024-10-22 14:33 | P.PN ---
Subjective Progress Note Date: 10/22/24 Patient is a 79-year-old male with a past medical history of atrial fibrillation on anticoagulation with Eliquis, hypertension, diabetes type 2 insulin- dependent, hypertension, hyperlipidemia, BPH, SVT, chronic hypoxic respiratory failure on oxygen at 4 L via nasal cannula, prior history of smoking and recent admission presents to ER with complaints of worsening shortness of breath. Patient also felt like his heart is racing fast. Was also complaining of fever at home. Complains of cough congestion and worsening dyspnea. Chest x-ray on admission showed interval increase in patchy opacities throughout the right mid to lower lung zone with questionable minimal subsegmental changes now identified in the left lung base. Differential considerations include asymmetric edema are bibasilar pneumonia. EKG showed sinus tachycardia 2D echocardiogram showed LVEF 55 to 60%. Moderate concentric LVH. Normal RV size and systolic function. Severe aortic stenosis with mean gradient of 40 mmHg tricuspid regurgitation. RVSP estimated at 32 mmHg. Laboratory data showed WBC 5.65, hemoglobin 12.2 and platelets 189, neutrophils 88.2% Sodium 137 potassium 4.2 chloride 104 bicarb is 22 BUN 36 and creatinine 1.2 and blood sugar 140 A1c 8.8 lactic acid 3.3 Troponin 0.025, proBNP 416 patient was tachypneic and tachycardic on admission 10/17/2024 Patient is currently sitting in the chair. Awake alert and oriented x 3. Shortness of breath better compared to yesterday. No complaints of chest pain. No nausea or vomiting. Patient is being continued on antibiotics and home cefepime. Also on DuoNebs a nd IV Solu-Medrol. Patient is hyperglycemic likely due to steroids and insulin regimen has been adjusted. Home show WBC 10.0 hemoglobin 10.7 platelets 206 sodium 135 potassium 4.9 chloride 106 bicarb is 18 BUN 48 and creatinine 2.01 and blood sugar 348. A1c 9.1 10/18/2024 Patient evaluated today sitting up at the bedside. He continues to report significant shortness of breath. He is continued on IV cefepime and IV solumedrol. Blood glucose remains elevated and lantus has been increased to 20 units twice daily. Sputum culture has been sent today. 10/19/2024 Patient evaluated today sitting up at the bedside with family present. Concerned about home insulin regimen and discussed currently insulin has been titrated because of the hyperglycemia and will be further adjusted on discharge. Patient remains significantly short of breath with activity. Continues to report productive cough. Sputum culture pending. Continues on IV cefepime. 10/20/2024 Patient is evaluated in follow-up with the medical floor. Chest x-ray reveals worsening right lower lung opacity correlate for pneumonia and pleural effusion. Persistent infiltrate remains in the lateral right lung. White blood cell cou nt remains normal. Patient is currently 98% on 5 L of oxygen via nasal cannula which can be titrated down further. His sputum culture is final and negative at this time. Blood work is improving with a BUN of 36 and creatinine of 1.36. He is continued on oral Lasix daily. He continues on high-dose IV Solu-Medrol 60 mg every 6 hours. He is on IV cefepime. 10/21--patient was seen and examined today. Patient is afebrile, currently on 5 L oxygen by nasal cannula. Remains on cefepime, infectious disease following. Pulmonary following, patient underwent bronchoscopy today. Remains on IV di uresis for fluid overload. On bronchodilator protocol and Solu-Medrol. On Eliquis for atrial fibrillation. 10/22. Patient seen examined. States breathing is improved. Denies any chest pain. Complaining of cough. REVIEW OF SYSTEMS: CONSTITUTIONAL: No fever, no malaise,. CARDIOVASCULAR: No chest pain, no palpitations, no syncope. PULMONARY as mentioned above GASTROINTESTINAL: No diarrhea, no nausea, no vomiting, no abdominal pain. NEUROLOGICAL: No headaches, no weakness, PHYSICAL EXAMINATION: GENERAL: The patient is alert and oriented x3, ill looking HEENT: Pupils are round and equally reacting to light. EOMI. No scleral icterus. No conjunctival pallor. Normocephalic, atraumatic. No pharyngeal erythema. No thyromegaly. CARDIOVASCULAR: S1 and S2 present. No murmurs, rubs, or gallops. PULMONARY: good air entry bilaterally, coarse breath sounds. ABDOMEN: Soft, nontender, nondistended, normoactive bowel sounds. No palpable organomegaly. MUSCULOSKELETAL: No joint swelling or deformity. EXTREMITIES: No cyanosis, clubbing, or pedal edema. NEUROLOGICAL: Gross neurological examination did not reveal any focal deficits. SKIN: No rashes. Assessment and plan Acute on chronic hypoxic respiratory failure secondary to COPD and pneumonia Pneumonia with opacities throughout the right midlung and subsegmental changes in the left lung base. Sepsis secondary pneumonia Lactic acidosis 3.3 on admission Recent history of pneumonia with sputum cultures growing Serratia and yesrsinia Acute COPD exacerbation. Acute on chronic hypoxic respiratory failure requiring 4 L oxygen via nasal cannula. Patient is currently on 5 L oxygen via nasal cannula. Paroxysmal atrial fibrillation on anticoagulation with Eliquis Severe aortic stenosis with mean gradient of 40 mmHg Hyperglycemia with uncontrolled diabetes type 2 A1c 8.8 Hyperlipidemia Acute on chronic diastolic CHF HFpEF DVT prophylaxis patient is already on anticoagulation Plan: Monitor vital signs Monitor CBC Monitor CMP Continue oxygen supplementation Continue with antibiotics cefepime, ID is on board. Follow-up sputum cultures, blood cultures. Procalcitonin level 0.78 patient was also started on IV Solu-Medrol and DuoNebs and Symbicort. Patient was started back on home medication including metoprolol, Eliquis and amiodarone. Patient is also on Jardiance and Lasix. Patient will need outpatient TAVR workup. Pulmonary, cardiology and ID is on board. Status post bronchoscopy 10/21. Labs and medication were reviewed.. Continue same treatment. Continue with symptomatic treatment. Resume home medication. Monitor labs and vitals. DVT and GI prophylaxis. Further recommendations as per clinical course of the patient Dictation was produced using [employer] dictation software. please excuse any grammatical, word or spelling errors. Objective - Vital Signs Vital signs: Vital Signs Temp 98.5 F 10/22/24 13:29 Pulse 82 10/22/24 13:29 Resp 18 10/22/24 13:29 BP 132/61 10/22/24 13:29 Pulse Ox 97 10/22/24 13:29 FiO2 Intake & Output 10/21/24 10/22/24 10/22/24 18:59 06:59 18:59 Intake Total 100 1398 Output Total 1000 600 Balance 100 -1000 798 Weight 92.1 kg 90 kg Intake: IV 100 Oral 1398 Output: Urine 1000 600 Other: Voiding Method Urinal # Voids 6 2 # Bowel Movements 1 1 - Labs CBC & Chem 7: 10/22/24 06:10 10/22/24 06:10 Labs: Abnormal Lab Results - Last 24 Hours (Table) 10/21/24 10/21/24 10/21/24 Range/Units 13:20 16:12 21:20 RBC (4.40-5.60) X 10*6/uL Hgb (13.0-17.0) g/dL Hct (39.6-50.0) % MCHC (32.0-37.0) g/dL RDW (11.5-14.5) % Immature Gran # (0.00-0.04) X 10*3/uL Neutrophils # (1.80-7.70) X 10*3/uL Lymphocytes # (0.90-5.00) X 10*3/uL Eosinophils # (0.04-0.35) X 10*3/uL NRBC/100 WBC Diff (0.00-0.01) X 10*3/uL BUN (9.0-27.0) mg/dL BUN/Creatinine Ratio (12.00-20.00) Ratio Glucose (70-110) mg/dL POC Glucose (mg/dL) 317 H 387 H (70-110) mg/dL Calcium (8.7-10.3) mg/dL AST (14-35) U/L Total Protein (6.2-8.2) g/dL Albumin (3.8-4.9) g/dL Fluid Appearance Bloody A (Clear) Fluid RBC 376595 H (0-2000) /uL 10/22/24 10/22/24 10/22/24 Range/Units 02:46 06:02 06:10 RBC 3.52 L (4.40-5.60) X 10*6/uL Hgb 10.0 L (13.0-17.0) g/dL Hct 32.6 L (39.6-50.0) % MCHC 30.7 L (32.0-37.0) g/dL RDW 16.4 H (11.5-14.5) % Immature Gran # 0.23 H (0.00-0.04) X 10*3/uL Neutrophils # 8.65 H (1.80-7.70) X 10*3/uL Lymphocytes # 0.38 L (0.90-5.00) X 10*3/uL Eosinophils # 0 L (0.04-0.35) X 10*3/uL NRBC/100 WBC Diff 0.13 H (0.00-0.01) X 10*3/uL BUN (9.0-27.0) mg/dL BUN/Creatinine Ratio (12.00-20.00) Ratio Glucose (70-110) mg/dL POC Glucose (mg/dL) 271 H 254 H (70-110) mg/dL Calcium (8.7-10.3) mg/dL AST (14-35) U/L Total Protein (6.2-8.2) g/dL Albumin (3.8-4.9) g/dL Fluid Appearance (Clear) Fluid RBC (0-2000) /uL 10/22/24 10/22/24 Range/Units 06:10 11:23 RBC (4.40-5.60) X 10*6/uL Hgb (13.0-17.0) g/dL Hct (39.6-50.0) % MCHC (32.0-37.0) g/dL RDW (11.5-14.5) % Immature Gran # (0.00-0.04) X 10*3/uL Neutrophils # (1.80-7.70) X 10*3/uL Lymphocytes # (0.90-5.00) X 10*3/uL Eosinophils # (0.04-0.35) X 10*3/uL NRBC/100 WBC Diff (0.00-0.01) X 10*3/uL BUN 41.1 H (9.0-27.0) mg/dL BUN/Creatinine Ratio 34.25 H (12.00-20.00) Ratio Glucose 245 H (70-110) mg/dL POC Glucose (mg/dL) 402 H (70-110) mg/dL Calcium 8.5 L (8.7-10.3) mg/dL AST 13 L (14-35) U/L Total Protein 5.1 L (6.2-8.2) g/dL Albumin 3.2 L (3.8-4.9) g/dL Fluid Appearance (Clear) Fluid RBC (0-2000) /uL Microbiology - Last 24 Hours (Table) 10/16/24 01:44 Blood Culture - Final Blood
--- NOTE | 2024-10-22 16:30 | CT ---
EXAMINATION TYPE: CT chest w con CT DLP: 456.6 mGycm, Automated exposure control for dose reduction was used. DATE OF EXAM: 10/22/2024 4:20 PM COMPARISON: Chest radiograph 10/22/2024, CTA chest 11/25/1993, CT chest 05/12/2023, 07/24/2018 CLINICAL INDICATION:Male, 79 years old with history of history of mass ; PHH, HX OF A MASS TECHNIQUE: Multiple axial images were obtained through the chest following the administration of 100 cc of Isovue 300. . Coronal and sagittal reformats reviewed. FINDINGS: LUNGS/ PLEURA: No pneumothorax. Trace right pleural effusion. Few scattered pleural calcifications re demonstrated. Advanced centrilobular emphysematous changes most prominent within the bilateral upper lobes. Similar mild pleural-parenchymal scarring. Scattered reticular opacities within the right lung . Loculated fluid along the right major fissure. No suspicious pulmonary nodule or mass. AIRWAY: Patent and unremarkable.. HEART: Cardiomegaly is demonstrated.Moderate aortic valvular calcifications.. No pericardial effusion . Mild to moderate coronary artery calcifications present. MEDIASTINUM: No evidence of adenopathy. VASCULATURE: No aortic aneurysm. Atherosclerotic calcification of the aorta and its branches. MUSCULOSKELETAL: No acute osseous abnormality. Mild disc degeneration changes are present throughout the thoracolumbar spine.. Advanced osteoarthritic changes of both shoulders. Diffuse bone demineraliz ation. SOFT TISSUES/LYMPH NODES: Unremarkable. LOWER NECK: No significant findings. UPPER ABDOMEN: Right renal upper pole exophytic 5.1 cm simple cyst. Additional left renal cortical 2. 0 cm simple appearing partially visualized cyst. No follow-up recommended. IMPRESSION: 1. Scattered reticular opacities throughout the right lung concerning for an infectious/inflammatory process. No distinct mass identified. 2. Trace right pleural effusion with additional loculated pleural fluid within the right major fissur e. 3. Advanced emphysematous changes. 4. Redemonstration of a few pleural-based calcifications. Correlate for prior asbestosis exposure. [facility], , 10/22/2024 4:28 PM
[2024-10-22 16:42] LABS: Glucose,Whole Blood 156 mg/dL (70-110)
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
[2024-10-22 20:29] LABS: Glucose,Whole Blood 164 mg/dL (70-110)
[2024-10-23 02:13] LABS: Glucose,Whole Blood 88 mg/dL (70-110)
[2024-10-23 06:10] LABS: Glucose,Whole Blood 87 mg/dL (70-110)
--- NOTE | 2024-10-23 09:28 | P.PN ---
Subjective Progress Note Date: 10/22/24 Principal diagnosis: Reason for follow-up is pneumonia Patient is a 79-year-old male with a past medical history significant for Atrial Fibrillation, Chest Pain / Angina, COPD, Diabetes Mellitus, Hyperlipidemia, Hypertension, Osteoarthritis (OA), Pneumonia, Prostate Disorder, Supraventricular Tachycardia (SVT) recently treated for course of pneumonia presented to hospital with increasing shortness of breath and cough did have abnormal x-ray concerning for pneumonia with a fever. On today's evaluation that is 10/22/2024, the patient continues to be afebrile, the patient is on r 4 L nasal cannula and breathing slightly comfortably, the Pt denies having any chest pain or any worsening cough cough, the patient denies having any abdominal pain no vomiting or any diarrhea. Patient white count is 9.77 creatinine is 1.2 BAL cultures are pending Objective - Vital Signs Vital signs: Vital Signs Temp 98.5 F 10/22/24 13:29 Pulse 84 10/22/24 15:47 Resp 18 10/22/24 13:29 BP 132/61 10/22/24 13:29 Pulse Ox 97 10/22/24 13:29 FiO2 Intake & Output 10/21/24 10/22/24 10/22/24 18:59 06:59 18:59 Intake Total 100 1398 Output Total 1000 600 Balance 100 -1000 798 Weight 92.1 kg 90 kg Intake: IV 100 Oral 1398 Output: Urine 1000 600 Other: Voiding Method Urinal # Voids 6 2 # Bowel Movements 1 1 - Exam GENERAL DESCRIPTION: An elderly male up in the chair in no distress RESPIRATORY SYSTEM: Unlabored breathing , decreased breath sounds at bases HEART: S1 S2 regular rate and rhythm , ABDOMEN: Soft , no tenderness EXTREMITIES: No edema feet - Labs CBC & Chem 7: 10/22/24 06:10 10/22/24 06:10 Labs: Abnormal Lab Results - Last 24 Hours (Table) 10/21/24 10/21/24 10/22/24 Range/Units 13:20 21:20 02:46 RBC (4.40-5.60) X 10*6/uL Hgb (13.0-17.0) g/dL Hct (39.6-50.0) % MCHC (32.0-37.0) g/dL RDW (11.5-14.5) % Immature Gran # (0.00-0.04) X 10*3/uL Neutrophils # (1.80-7.70) X 10*3/uL Lymphocytes # (0.90-5.00) X 10*3/uL Eosinophils # (0.04-0.35) X 10*3/uL NRBC/100 WBC Diff (0.00-0.01) X 10*3/uL BUN (9.0-27.0) mg/dL BUN/Creatinine Ratio (12.00-20.00) Ratio Glucose (70-110) mg/dL POC Glucose (mg/dL) 387 H 271 H (70-110) mg/dL Calcium (8.7-10.3) mg/dL AST (14-35) U/L Total Protein (6.2-8.2) g/dL Albumin (3.8-4.9) g/dL Fluid Appearance Bloody A (Clear) Fluid RBC 021464 H (0-2000) /uL 10/22/24 10/22/24 10/22/24 Range/Units 06:02 06:10 06:10 RBC 3.52 L (4.40-5.60) X 10*6/uL Hgb 10.0 L (13.0-17.0) g/dL Hct 32.6 L (39.6-50.0) % MCHC 30.7 L (32.0-37.0) g/dL RDW 16.4 H (11.5-14.5) % Immature Gran # 0.23 H (0.00-0.04) X 10*3/uL Neutrophils # 8.65 H (1.80-7.70) X 10*3/uL Lymphocytes # 0.38 L (0.90-5.00) X 10*3/uL Eosinophils # 0 L (0.04-0.35) X 10*3/uL NRBC/100 WBC Diff 0.13 H (0.00-0.01) X 10*3/uL BUN 41.1 H (9.0-27.0) mg/dL BUN/Creatinine Ratio 34.25 H (12.00-20.00) Ratio Glucose 245 H (70-110) mg/dL POC Glucose (mg/dL) 254 H (70-110) mg/dL Calcium 8.5 L (8.7-10.3) mg/dL AST 13 L (14-35) U/L Total Protein 5.1 L (6.2-8.2) g/dL Albumin 3.2 L (3.8-4.9) g/dL Fluid Appearance (Clear) Fluid RBC (0-2000) /uL 10/22/24 10/22/24 Range/Units 11:23 16:40 RBC (4.40-5.60) X 10*6/uL Hgb (13.0-17.0) g/dL Hct (39.6-50.0) % MCHC (32.0-37.0) g/dL RDW (11.5-14.5) % Immature Gran # (0.00-0.04) X 10*3/uL Neutrophils # (1.80-7.70) X 10*3/uL Lymphocytes # (0.90-5.00) X 10*3/uL Eosinophils # (0.04-0.35) X 10*3/uL NRBC/100 WBC Diff (0.00-0.01) X 10*3/uL BUN (9.0-27.0) mg/dL BUN/Creatinine Ratio (12.00-20.00) Ratio Glucose (70-110) mg/dL POC Glucose (mg/dL) 402 H 156 H (70-110) mg/dL Calcium (8.7-10.3) mg/dL AST (14-35) U/L Total Protein (6.2-8.2) g/dL Albumin (3.8-4.9) g/dL Fluid Appearance (Clear) Fluid RBC (0-2000) /uL Assessment and Plan (1) Pneumonia Current Visit: Yes Status: Acute Code(s): J18.9 - PNEUMONIA, UNSPECIFIED ORGANISM SNOMED Code(s): 183050132 Plan: 1patient presented to the hospital with increasing shortness of breath and cough bringing up some yellow sputum in this patient did have low-grade fever with evidence of pneumonia chest x-ray in this patient who recently completed course of oral Ceftin and sputum culture at that time were positive for Serratia and Yersinia species will need to cover for more resistant gram-negative pathogen than the regular community-acquired pathogen for this episode of pneumonia 2- sputum as well as blood culture have been negative 3-patient is status post bronchoscopy with significant mount of purulent secretions status post lavage culture have been done results are currently pending 4patient to be treated with cefepime while waiting for the culture to finalize multiple question answered Dictation was produced using [employer] software. please excuse any grammatical, word or spelling errors. Time with Patient: Less than 30
[2024-10-23 11:37] LABS: Glucose,Whole Blood 195 mg/dL (70-110)
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
--- NOTE | 2024-10-23 14:38 | P.PN ---
Subjective Progress Note Date: 10/23/24 Patient is a 79-year-old male with a past medical history of atrial fibrillation on anticoagulation with Eliquis, hypertension, diabetes type 2 insulin- dependent, hypertension, hyperlipidemia, BPH, SVT, chronic hypoxic respiratory failure on oxygen at 4 L via nasal cannula, prior history of smoking and recent admission presents to ER with complaints of worsening shortness of breath. Patient also felt like his heart is racing fast. Was also complaining of fever at home. Complains of cough congestion and worsening dyspnea. Chest x-ray on admission showed interval increase in patchy opacities throughout the right mid to lower lung zone with questionable minimal subsegmental changes now identified in the left lung base. Differential considerations include asymmetric edema are bibasilar pneumonia. EKG showed sinus tachycardia 2D echocardiogram showed LVEF 55 to 60%. Moderate concentric LVH. Normal RV size and systolic function. Severe aortic stenosis with mean gradient of 40 mmHg tricuspid regurgitation. RVSP estimated at 32 mmHg. Laboratory data showed WBC 5.65, hemoglobin 12.2 and platelets 189, neutrophils 88.2% Sodium 137 potassium 4.2 chloride 104 bicarb is 22 BUN 36 and creatinine 1.2 and blood sugar 140 A1c 8.8 lactic acid 3.3 Troponin 0.025, proBNP 416 patient was tachypneic and tachycardic on admission 10/17/2024 Patient is currently sitting in the chair. Awake alert and oriented x 3. Shortness of breath better compared to yesterday. No complaints of chest pain. No nausea or vomiting. Patient is being continued on antibiotics and home cefepime. Also on DuoNebs a nd IV Solu-Medrol. Patient is hyperglycemic likely due to steroids and insulin regimen has been adjusted. Home show WBC 10.0 hemoglobin 10.7 platelets 206 sodium 135 potassium 4.9 chloride 106 bicarb is 18 BUN 48 and creatinine 2.01 and blood sugar 348. A1c 9.1 10/18/2024 Patient evaluated today sitting up at the bedside. He continues to report significant shortness of breath. He is continued on IV cefepime and IV solumedrol. Blood glucose remains elevated and lantus has been increased to 20 units twice daily. Sputum culture has been sent today. 10/19/2024 Patient evaluated today sitting up at the bedside with family present. Concerned about home insulin regimen and discussed currently insulin has been titrated because of the hyperglycemia and will be further adjusted on discharge. Patient remains significantly short of breath with activity. Continues to report productive cough. Sputum culture pending. Continues on IV cefepime. 10/20/2024 Patient is evaluated in follow-up with the medical floor. Chest x-ray reveals worsening right lower lung opacity correlate for pneumonia and pleural effusion. Persistent infiltrate remains in the lateral right lung. White blood cell cou nt remains normal. Patient is currently 98% on 5 L of oxygen via nasal cannula which can be titrated down further. His sputum culture is final and negative at this time. Blood work is improving with a BUN of 36 and creatinine of 1.36. He is continued on oral Lasix daily. He continues on high-dose IV Solu-Medrol 60 mg every 6 hours. He is on IV cefepime. 10/21--patient was seen and examined today. Patient is afebrile, currently on 5 L oxygen by nasal cannula. Remains on cefepime, infectious disease following. Pulmonary following, patient underwent bronchoscopy today. Remains on IV di uresis for fluid overload. On bronchodilator protocol and Solu-Medrol. On Eliquis for atrial fibrillation. 10/22. Patient seen examined. States breathing is improved. Denies any chest pain. Complaining of cough. 10/23. Patient seen and examined. Currently on [address] chest done showed scattered reticular opacities throughout the right lung concerning for infectious/inflammatory process. He states he feels better. Denies any shortness of breath at rest. Gets only short of breath on exertion REVIEW OF SYSTEMS: CONSTITUTIONAL: No fever, no malaise,. CARDIOVASCULAR: No chest pain, no palpitations, no syncope. PULMONARY as mentioned above GASTROINTESTINAL: No diarrhea, no nausea, no vomiting, no abdominal pain. NEUROLOGICAL: No headaches, no weakness, PHYSICAL EXAMINATION: GENERAL: The patient is alert and oriented x3, ill looking HEENT: Pupils are round and equally reacting to light. EOMI. No scleral icterus. No conjunctival pallor. Normocephalic, atraumatic. No pharyngeal erythema. No thyromegaly. CARDIOVASCULAR: S1 and S2 present. No murmurs, rubs, or gallops. PULMONARY: good air entry bilaterally, coarse breath sounds. ABDOMEN: Soft, nontender, nondistended, normoactive bowel sounds. No palpable organomegaly. MUSCULOSKELETAL: No joint swelling or deformity. EXTREMITIES: No cyanosis, clubbing, or pedal edema. NEUROLOGICAL: Gross neurological examination did not reveal any focal deficits. SKIN: No rashes. Assessment and plan Acute on chronic hypoxic respiratory failure secondary to COPD and pneumonia Pneumonia with opacities throughout the right midlung and subsegmental changes in the left lung base. Sepsis secondary pneumonia Lactic acidosis 3.3 on admission Recent history of pneumonia with sputum cultures growing Serratia and yesrsinia Acute COPD exacerbation. Acute on chronic hypoxic respiratory failure requiring 4 L oxygen via nasal cannula. Patient is currently on 5 L oxygen via nasal cannula. Paroxysmal atrial fibrillation on anticoagulation with Eliquis Severe aortic stenosis with mean gradient of 40 mmHg Hyperglycemia with uncontrolled diabetes type 2 A1c 8.8 Hyperlipidemia Acute on chronic diastolic CHF HFpEF DVT prophylaxis patient is already on anticoagulation Plan: Monitor vital signs Monitor CBC Monitor CMP Continue oxygen supplementation Status post bronchoscopy 10/21. Continue with antibiotics cefepime, ID is on board. Follow-up sputum cultures, blood cultures. Procalcitonin level 0.78 patient was also started on IV Solu-Medrol and DuoNebs and Symbicort. Patient was started back on home medication including metoprolol, Eliquis and amiodarone. Patient is also on Jardiance and Lasix. Patient will need outpatient TAVR workup. Pulmonary, cardiology and ID is on board. Labs and medication were reviewed.. Continue same treatment. Continue with symptomatic treatment. Resume home medication. Monitor labs and vitals. DVT and GI prophylaxis. Further recommendations as per clinical course of the patient Dictation was produced using [employer] dictation software. please excuse any grammatical, word or spelling errors. Objective - Vital Signs Vital signs: Vital Signs Temp 98.3 F 10/23/24 07:46 Pulse 84 10/23/24 08:32 Resp 18 10/23/24 07:46 BP 147/70 10/23/24 07:46 Pulse Ox 94 L 10/23/24 08:20 FiO2 Intake & Output 10/22/24 10/23/24 10/23/24 18:59 06:59 18:59 Intake Total 1398 600 Output Total 600 1300 1 Balance 798 -700 -1 Intake: Intake, IV Titration 100 Amount Cefepime 2 gm In Sodium 100 Chloride 0.9% 100 ml @ 25 mls/hr IVPB Q12HR [facility] Rx #:[id number] Oral 1398 500 Output: Urine 600 1300 1 Other: # Voids 2 # Bowel Movements 1 1 - Labs CBC & Chem 7: 10/22/24 06:10 10/22/24 06:10 Labs: Abnormal Lab Results - Last 24 Hours (Table) 10/22/24 10/22/24 Range/Units 16:40 20:27 POC Glucose (mg/dL) 156 H 164 H (70-110) mg/dL Microbiology - Last 24 Hours (Table) 10/21/24 13:20 Gram Stain - Preliminary Bronchoalviolar Lavage - Right 10/21/24 13:20 Acid Fast Bacilli Smear - Preliminary Bronchoalviolar Lavage - Right
--- NOTE | 2024-10-23 15:10 | P.PN ---
Subjective Progress Note Date: 10/23/24 Principal diagnosis: Reason for follow-up is pneumonia Patient is a 79-year-old male with a past medical history significant for Atrial Fibrillation, Chest Pain / Angina, COPD, Diabetes Mellitus, Hyperlipidemia, Hypertension, Osteoarthritis (OA), Pneumonia, Prostate Disorder, Supraventricular Tachycardia (SVT) recently treated for course of pneumonia presented to hospital with increasing shortness of breath and cough did have abnormal x-ray concerning for pneumonia with a fever. On today's evaluation that is 10/24/2023, patient did have a temperature of 98.3 F this morning and denies having any chills, patient is on 4 L nasal oxygen and is breathing slightly comfortably P denies having chest pain or worsening cough no abdominal pain or any diarrhea. No new lab has been obtained today BAL culture currently pending Objective - Vital Signs Vital signs: Vital Signs Temp 98.3 F 10/23/24 07:46 Pulse 76 10/23/24 12:21 Resp 18 10/23/24 07:46 BP 147/70 10/23/24 07:46 Pulse Ox 94 L 10/23/24 08:20 FiO2 Intake & Output 10/22/24 10/23/24 10/23/24 18:59 06:59 18:59 Intake Total 1398 600 Output Total 600 1300 1 Balance 798 -700 -1 Intake: Intake, IV Titration 100 Amount Cefepime 2 gm In Sodium 100 Chloride 0.9% 100 ml @ 25 mls/hr IVPB Q12HR [facility] Rx #:[id number] Oral 1398 500 Output: Urine 600 1300 1 Other: # Voids 2 # Bowel Movements 1 1 - Exam GENERAL DESCRIPTION: An elderly male up in the chair in no distress RESPIRATORY SYSTEM: Unlabored breathing , decreased breath sounds at bases HEART: S1 S2 regular rate and rhythm , ABDOMEN: Soft , no tenderness EXTREMITIES: No edema feet - Labs CBC & Chem 7: 10/22/24 06:10 10/22/24 06:10 Labs: Abnormal Lab Results - Last 24 Hours (Table) 10/22/24 10/22/24 10/23/24 Range/Units 16:40 20:27 11:32 POC Glucose (mg/dL) 156 H 164 H 195 H (70-110) mg/dL Microbiology - Last 24 Hours (Table) 10/21/24 13:20 Gram Stain - Preliminary Bronchoalviolar Lavage - Right 10/21/24 13:20 Acid Fast Bacilli Smear - Preliminary Bronchoalviolar Lavage - Right Assessment and Plan (1) Pneumonia Current Visit: Yes Status: Acute Code(s): J18.9 - PNEUMONIA, UNSPECIFIED ORGANISM SNOMED Code(s): 649179900 Plan: 1patient presented to the hospital with increasing shortness of breath and cough bringing up some yellow sputum in this patient did have low-grade fever with evidence of pneumonia chest x-ray in this patient who recently completed course of oral Ceftin and sputum culture at that time were positive for Serratia and Yersinia species will need to cover for more resistant gram-negative pathogen than the regular community-acquired pathogen for this episode of pneumonia 2- sputum as well as blood culture have been negative 3-patient is status post bronchoscopy with significant mount of purulent secr etions status post lavage culture have been done results are currently pending 4patient remains to be afebrile we will continue the patient on cefepime while waiting for the BAL culture to finalize Dictation was produced using [email or web address] dictation software. please excuse any grammatical, word or spelling errors.
[2024-10-23 17:01] LABS: Glucose,Whole Blood 145 mg/dL (70-110)
[2024-10-23 20:24] LABS: Glucose,Whole Blood 108 mg/dL (70-110)
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
[2024-10-24] MEDS: SULFAMETHOX-TMP 800-160MG 1 EACH TAB PO SCH (00:11)
[2024-10-24 02:03] LABS: Glucose,Whole Blood 243 mg/dL (70-110)
[2024-10-24 06:35] LABS: Glucose,Whole Blood 162 mg/dL (70-110)
[2024-10-24 09:34] LABS: Basophils # (A) 0.01 10*3/uL (0.00-0.10); Basophils % (A) 0.1 %; Eosinophils # (A) 0.00 10*3/uL (0.04-0.35); Eosinophils % (A) 0.0 %; HCT 35.6 % (39.6-50.0); HGB 11.2 g/dL (13.0-17.0); Lymphocytes # (A) 0.41 10*3/uL (0.90-5.00); Lymphocytes % (A) 3.4 %; MCH 29.2 pg (27.0-32.0); MCHC 31.5 g/dL (32.0-37.0); MCV 93.0 fL (80.0-97.0); Monocytes # (A) 0.38 10*3/uL (0.20-1.00); Monocytes % (A) 3.1 %; Neutrophils # (A) 11.10 10*3/uL (1.80-7.70); Neutrophils % (A) 91.1 %; Platelet Count 281 10*3/uL (140-440); RBC 3.83 10*6/uL (4.40-5.60); RDW 16.2 % (11.5-14.5); WBC 12.18 10*3/uL (4.50-10.00)
[2024-10-24 09:45] LABS: Carbon Dioxide 27 mmol/L (22-30); Chloride 98 mmol/L (98-107); Glucose 260 mg/dL (74-99); Potassium 4.8 mmol/L (3.5-5.1); Sodium 137 mmol/L (137-145)
[2024-10-24 09:46] LABS: ALT 30 U/L (4-49); AST 23 U/L (17-59); African American GFR (CKD) 53 (>60 ml/min/1.73 sqM); Albumin 3.4 g/dL (3.5-5.0); Albumin/Globulin Ratio 1.5; Alkaline Phosphatase 72 U/L (38-126); Anion Gap 12 mmol/L; Blood Urea Nitrogen 52 mg/dL (9-20); Calcium 8.9 mg/dL (8.4-10.2); Globulin 2.2 g/dL; Non-African American GFR(CKD) 46 (>60 ml/min/1.73 sqM); Total Protein 5.6 g/dL (6.3-8.2)
[2024-10-24 11:46] LABS: Glucose,Whole Blood 315 mg/dL (70-110)
--- NOTE | 2024-10-24 15:55 | P.PN ---
Subjective Progress Note Date: 10/24/24 Principal diagnosis: Reason for follow-up is pneumonia Patient is a 79-year-old male with a past medical history significant for Atrial Fibrillation, Chest Pain / Angina, COPD, Diabetes Mellitus, Hyperlipidemia, Hypertension, Osteoarthritis (OA), Pneumonia, Prostate Disorder, Supraventricular Tachycardia (SVT) recently treated for course of pneumonia presented to hospital with increasing shortness of breath and cough did have abnormal x-ray concerning for pneumonia with a fever. On today's evaluation that is 10/24/2024, Patient is afebrile patient is currently on 3.4 L nasal cannula and denies having any worsening shortness of breath, the patient denies any chest pain and cough is decreased in intensity, the patient denies any nausea vomiting did not have any abdominal pain and no diarrhea. Patient white count is 12.18, creatinine is 1.44 BAL with stenotrophomonas Objective - Vital Signs Vital signs: Vital Signs Temp 97.8 F 10/24/24 14:00 Pulse 77 10/24/24 14:00 Resp 18 10/24/24 14:00 BP 128/60 10/24/24 14:00 Pulse Ox 97 10/24/24 14:00 FiO2 Intake & Output 10/23/24 10/24/24 10/24/24 18:59 06:59 18:59 Output Total 1 1100 Balance -1 -1100 Output: Urine 1 1100 Other: # Voids 3 # Bowel Movements 1 - Exam GENERAL DESCRIPTION: An elderly male up in the chair in no distress RESPIRATORY SYSTEM: Unlabored breathing , decreased breath sounds at bases HEART: S1 S2 regular rate and rhythm , ABDOMEN: Soft , no tenderness EXTREMITIES: No edema feet - Labs CBC & Chem 7: 10/24/24 09:11 10/24/24 09:11 Labs: Abnormal Lab Results - Last 24 Hours (Table) 10/23/24 10/24/24 10/24/24 Range/Units 16:59 02:01 06:34 WBC (4.50-10.00) 10*3/uL RBC (4.40-5.60) 10*6/uL Hgb (13.0-17.0) g/dL Hct (39.6-50.0) % MCHC (32.0-37.0) g/dL RDW (11.5-14.5) % Immature Gran # (0.00-0.04) 10*3/uL Neutrophils # (1.80-7.70) 10*3/uL Lymphocytes # (0.90-5.00) 10*3/uL Eosinophils # (0.04-0.35) 10*3/uL BUN (9-20) mg/dL Creatinine (0.66-1.25) mg/dL Glucose (74-99) mg/dL POC Glucose (mg/dL) 145 H 243 H 162 H (70-110) mg/dL Total Protein (6.3-8.2) g/dL Albumin (3.5-5.0) g/dL 10/24/24 10/24/24 10/24/24 Range/Units 09:11 09:11 11:43 WBC 12.18 H (4.50-10.00) 10*3/uL RBC 3.83 L (4.40-5.60) 10*6/uL Hgb 11.2 L (13.0-17.0) g/dL Hct 35.6 L (39.6-50.0) % MCHC 31.5 L (32.0-37.0) g/dL RDW 16.2 H (11.5-14.5) % Immature Gran # 0.28 H (0.00-0.04) 10*3/uL Neutrophils # 11.10 H (1.80-7.70) 10*3/uL Lymphocytes # 0.41 L (0.90-5.00) 10*3/uL Eosinophils # 0.00 L (0.04-0.35) 10*3/uL BUN 52 H (9-20) mg/dL Creatinine 1.44 H (0.66-1.25) mg/dL Glucose 260 H (74-99) mg/dL POC Glucose (mg/dL) 315 H (70-110) mg/dL Total Protein 5.6 L (6.3-8.2) g/dL Albumin 3.4 L (3.5-5.0) g/dL Microbiology - Last 24 Hours (Table) 10/21/24 13:20 Gram Stain - Final Bronchoalviolar Lavage - Right Bronchial Washings Culture - Final Stenotrophomonas maltophilia Assessment and Plan (1) Pneumonia Current Visit: Yes Status: Acute Code(s): J18.9 - PNEUMONIA, UNSPECIFIED ORGANISM SNOMED Code(s): 015154633 Plan: 1patient presented to the hospital with increasing shortness of breath and cough bringing up some yellow sputum in this patient did have low-grade fever with evidence of pneumonia chest x-ray in this patient who recently completed course of oral Ceftin and sputum culture at that time were positive for Serratia and Yersinia species will need to cover for more resistant gram-negative pathogen than the regular community-acquired pathogen for this episode of pneumonia 2- sputum as well as blood culture have been negative 3-patient is status post bronchoscopy with significant mount of purulent secretions status post lavage culture which is growing stenotrophomonas sensitive to Bactrim and Levaquin 4patient has been started on Bactrim DS we will go ahead and discontinue cefepime and monitor clinical course closely Dictation was produced using [employer] dictation software. please excuse any grammatical, word or spelling errors. Time with Patient: Less than 30
[2024-10-24 16:52] LABS: Glucose,Whole Blood 319 mg/dL (70-110)
--- NOTE | 2024-10-24 17:07 | P.PN ---
Subjective Progress Note Date: 10/24/24 Patient is a 79-year-old male with a past medical history of atrial fibrillation on anticoagulation with Eliquis, hypertension, diabetes type 2 insulin- dependent, hypertension, hyperlipidemia, BPH, SVT, chronic hypoxic respiratory failure on oxygen at 4 L via nasal cannula, prior history of smoking and recent admission presents to ER with complaints of worsening shortness of breath. Patient also felt like his heart is racing fast. Was also complaining of fever at home. Complains of cough congestion and worsening dyspnea. Chest x-ray on admission showed interval increase in patchy opacities throughout the right mid to lower lung zone with questionable minimal subsegmental changes now identified in the left lung base. Differential considerations include asymmetric edema are bibasilar pneumonia. EKG showed sinus tachycardia 2D echocardiogram showed LVEF 55 to 60%. Moderate concentric LVH. Normal RV size and systolic function. Severe aortic stenosis with mean gradient of 40 mmHg tricuspid regurgitation. RVSP estimated at 32 mmHg. Laboratory data showed WBC 5.65, hemoglobin 12.2 and platelets 189, neutrophils 88.2% Sodium 137 potassium 4.2 chloride 104 bicarb is 22 BUN 36 and creatinine 1.2 and blood sugar 140 A1c 8.8 lactic acid 3.3 Troponin 0.025, proBNP 416 patient was tachypneic and tachycardic on admission 10/17/2024 Patient is currently sitting in the chair. Awake alert and oriented x 3. Shortness of breath better compared to yesterday. No complaints of chest pain. No nausea or vomiting. Patient is being continued on antibiotics and home cefepime. Also on DuoNebs a nd IV Solu-Medrol. Patient is hyperglycemic likely due to steroids and insulin regimen has been adjusted. Home show WBC 10.0 hemoglobin 10.7 platelets 206 sodium 135 potassium 4.9 chloride 106 bicarb is 18 BUN 48 and creatinine 2.01 and blood sugar 348. A1c 9.1 10/18/2024 Patient evaluated today sitting up at the bedside. He continues to report significant shortness of breath. He is continued on IV cefepime and IV solumedrol. Blood glucose remains elevated and lantus has been increased to 20 units twice daily. Sputum culture has been sent today. 10/19/2024 Patient evaluated today sitting up at the bedside with family present. Concerned about home insulin regimen and discussed currently insulin has been titrated because of the hyperglycemia and will be further adjusted on discharge. Patient remains significantly short of breath with activity. Continues to report productive cough. Sputum culture pending. Continues on IV cefepime. 10/20/2024 Patient is evaluated in follow-up with the medical floor. Chest x-ray reveals worsening right lower lung opacity correlate for pneumonia and pleural effusion. Persistent infiltrate remains in the lateral right lung. White blood cell cou nt remains normal. Patient is currently 98% on 5 L of oxygen via nasal cannula which can be titrated down further. His sputum culture is final and negative at this time. Blood work is improving with a BUN of 36 and creatinine of 1.36. He is continued on oral Lasix daily. He continues on high-dose IV Solu-Medrol 60 mg every 6 hours. He is on IV cefepime. 10/21--patient was seen and examined today. Patient is afebrile, currently on 5 L oxygen by nasal cannula. Remains on cefepime, infectious disease following. Pulmonary following, patient underwent bronchoscopy today. Remains on IV di uresis for fluid overload. On bronchodilator protocol and Solu-Medrol. On Eliquis for atrial fibrillation. 10/22. Patient seen examined. States breathing is improved. Denies any chest pain. Complaining of cough. 10/23. Patient seen and examined. Currently on [address] chest done showed scattered reticular opacities throughout the right lung concerning for infectious/inflammatory process. He states he feels better. Denies any shortness of breath at rest. Gets only short of breath on exertion 10/24. Patient seen examined. Breathing is improved. Denies any fever or chills REVIEW OF SYSTEMS: CONSTITUTIONAL: No fever, no malaise,. CARDIOVASCULAR: No chest pain, no palpitations, no syncope. PULMONARY as mentioned above GASTROINTESTINAL: No diarrhea, no nausea, no vomiting, no abdominal pain. NEUROLOGICAL: No headaches, no weakness, PHYSICAL EXAMINATION: GENERAL: The patient is alert and oriented x3, ill looking HEENT: Pupils are round and equally reacting to light. EOMI. No scleral icterus. No conjunctival pallor. Normocephalic, atraumatic. No pharyngeal erythema. No thyromegaly. CARDIOVASCULAR: S1 and S2 present. No murmurs, rubs, or gallops. PULMONARY: good air entry bilaterally, coarse breath sounds. ABDOMEN: Soft, nontender, nondistended, normoactive bowel sounds. No palpable organomegaly. MUSCULOSKELETAL: No joint swelling or deformity. EXTREMITIES: No cyanosis, clubbing, or pedal edema. NEUROLOGICAL: Gross neurological examination did not reveal any focal deficits. SKIN: No rashes. Assessment and plan Acute on chronic hypoxic respiratory failure secondary to COPD and pneumonia Pneumonia with opacities throughout the right midlung and subsegmental changes in the left lung base. Sepsis secondary pneumonia Lactic acidosis 3.3 on admission Recent history of pneumonia with sputum cultures growing Serratia and yesrsinia Acute COPD exacerbation. Acute on chronic hypoxic respiratory failure requiring 4 L oxygen via nasal cannula. Patient is currently on 5 L oxygen via nasal cannula. Paroxysmal atrial fibrillation on anticoagulation with Eliquis Severe aortic stenosis with mean gradient of 40 mmHg Hyperglycemia with uncontrolled diabetes type 2 A1c 8.8 Hyperlipidemia Acute on chronic diastolic CHF HFpEF DVT prophylaxis patient is already on anticoagulation Plan: Monitor vital signs Monitor CBC Monitor CMP Continue oxygen supplementation Status post bronchoscopy 10/21. Continue cefepime and Bactrim Procalcitonin level 0.78 patient was also started on IV Solu-Medrol and DuoNebs and Symbicort. Continue metoprolol, Eliquis and amiodarone. Patient is also on Jardiance and Lasix. Patient will need outpatient TAVR workup. Pulmonary, cardiology and ID is on board. Labs and medication were reviewed.. Continue same treatment. Continue with symptomatic treatment. Resume home medication. Monitor labs and vitals. DVT and GI prophylaxis. Further recommendations as per clinical course of the patient Dictation was produced using [employer] dictation software. please excuse any grammatical, word or spelling errors. Objective - Vital Signs Vital signs: Vital Signs Temp 98.3 F 10/24/24 07:23 Pulse 80 10/24/24 11:43 Resp 18 10/24/24 07:23 BP 126/55 10/24/24 07:23 Pulse Ox 96 10/24/24 08:39 FiO2 Intake & Output 10/23/24 10/24/24 10/24/24 18:59 06:59 18:59 Output Total 1 1100 Balance -1 -1100 Output: Urine 1 1100 Other: # Voids 3 # Bowel Movements 1 - Labs CBC & Chem 7: 10/24/24 09:11 10/24/24 09:11 Labs: Abnormal Lab Results - Last 24 Hours (Table) 10/23/24 10/24/24 10/24/24 Range/Units 16:59 02:01 06:34 WBC (4.50-10.00) 10*3/uL RBC (4.40-5.60) 10*6/uL Hgb (13.0-17.0) g/dL Hct (39.6-50.0) % MCHC (32.0-37.0) g/dL RDW (11.5-14.5) % Immature Gran # (0.00-0.04) 10*3/uL Neutrophils # (1.80-7.70) 10*3/uL Lymphocytes # (0.90-5.00) 10*3/uL Eosinophils # (0.04-0.35) 10*3/uL BUN (9-20) mg/dL Creatinine (0.66-1.25) mg/dL Glucose (74-99) mg/dL POC Glucose (mg/dL) 145 H 243 H 162 H (70-110) mg/dL Total Protein (6.3-8.2) g/dL Albumin (3.5-5.0) g/dL 10/24/24 10/24/24 10/24/24 Range/Units 09:11 09:11 11:43 WBC 12.18 H (4.50-10.00) 10*3/uL RBC 3.83 L (4.40-5.60) 10*6/uL Hgb 11.2 L (13.0-17.0) g/dL Hct 35.6 L (39.6-50.0) % MCHC 31.5 L (32.0-37.0) g/dL RDW 16.2 H (11.5-14.5) % Immature Gran # 0.28 H (0.00-0.04) 10*3/uL Neutrophils # 11.10 H (1.80-7.70) 10*3/uL Lymphocytes # 0.41 L (0.90-5.00) 10*3/uL Eosinophils # 0.00 L (0.04-0.35) 10*3/uL BUN 52 H (9-20) mg/dL Creatinine 1.44 H (0.66-1.25) mg/dL Glucose 260 H (74-99) mg/dL POC Glucose (mg/dL) 315 H (70-110) mg/dL Total Protein 5.6 L (6.3-8.2) g/dL Albumin 3.4 L (3.5-5.0) g/dL Microbiology - Last 24 Hours (Table) 10/21/24 13:20 Gram Stain - Final Bronchoalviolar Lavage - Right Bronchial Washings Culture - Final Stenotrophomonas maltophilia
[2024-10-24 20:25] LABS: Glucose,Whole Blood 240 mg/dL (70-110)
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
[2024-10-25 02:19] LABS: Glucose,Whole Blood 270 mg/dL (70-110)
[2024-10-25 06:07] LABS: Glucose,Whole Blood 161 mg/dL (70-110)
[2024-10-25 12:03] LABS: Glucose,Whole Blood 322 mg/dL (70-110)
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
--- NOTE | 2024-10-25 14:18 | P.PN ---
Subjective Progress Note Date: 10/25/24 Patient is a 79-year-old male with a past medical history of atrial fibrillation on anticoagulation with Eliquis, hypertension, diabetes type 2 insulin- dependent, hypertension, hyperlipidemia, BPH, SVT, chronic hypoxic respiratory failure on oxygen at 4 L via nasal cannula, prior history of smoking and recent admission presents to ER with complaints of worsening shortness of breath. Patient also felt like his heart is racing fast. Was also complaining of fever at home. Complains of cough congestion and worsening dyspnea. Chest x-ray on admission showed interval increase in patchy opacities throughout the right mid to lower lung zone with questionable minimal subsegmental changes now identified in the left lung base. Differential considerations include asymmetric edema are bibasilar pneumonia. EKG showed sinus tachycardia 2D echocardiogram showed LVEF 55 to 60%. Moderate concentric LVH. Normal RV size and systolic function. Severe aortic stenosis with mean gradient of 40 mmHg tricuspid regurgitation. RVSP estimated at 32 mmHg. Laboratory data showed WBC 5.65, hemoglobin 12.2 and platelets 189, neutrophils 88.2% Sodium 137 potassium 4.2 chloride 104 bicarb is 22 BUN 36 and creatinine 1.2 and blood sugar 140 A1c 8.8 lactic acid 3.3 Troponin 0.025, proBNP 416 patient was tachypneic and tachycardic on admission 10/17/2024 Patient is currently sitting in the chair. Awake alert and oriented x 3. Shortness of breath better compared to yesterday. No complaints of chest pain. No nausea or vomiting. Patient is being continued on antibiotics and home cefepime. Also on DuoNebs a nd IV Solu-Medrol. Patient is hyperglycemic likely due to steroids and insulin regimen has been adjusted. Home show WBC 10.0 hemoglobin 10.7 platelets 206 sodium 135 potassium 4.9 chloride 106 bicarb is 18 BUN 48 and creatinine 2.01 and blood sugar 348. A1c 9.1 10/18/2024 Patient evaluated today sitting up at the bedside. He continues to report significant shortness of breath. He is continued on IV cefepime and IV solumedrol. Blood glucose remains elevated and lantus has been increased to 20 units twice daily. Sputum culture has been sent today. 10/19/2024 Patient evaluated today sitting up at the bedside with family present. Concerned about home insulin regimen and discussed currently insulin has been titrated because of the hyperglycemia and will be further adjusted on discharge. Patient remains significantly short of breath with activity. Continues to report productive cough. Sputum culture pending. Continues on IV cefepime. 10/20/2024 Patient is evaluated in follow-up with the medical floor. Chest x-ray reveals worsening right lower lung opacity correlate for pneumonia and pleural effusion. Persistent infiltrate remains in the lateral right lung. White blood cell cou nt remains normal. Patient is currently 98% on 5 L of oxygen via nasal cannula which can be titrated down further. His sputum culture is final and negative at this time. Blood work is improving with a BUN of 36 and creatinine of 1.36. He is continued on oral Lasix daily. He continues on high-dose IV Solu-Medrol 60 mg every 6 hours. He is on IV cefepime. 10/21--patient was seen and examined today. Patient is afebrile, currently on 5 L oxygen by nasal cannula. Remains on cefepime, infectious disease following. Pulmonary following, patient underwent bronchoscopy today. Remains on IV di uresis for fluid overload. On bronchodilator protocol and Solu-Medrol. On Eliquis for atrial fibrillation. 10/22. Patient seen examined. States breathing is improved. Denies any chest pain. Complaining of cough. 10/23. Patient seen and examined. Currently on [address] chest done showed scattered reticular opacities throughout the right lung concerning for infectious/inflammatory process. He states he feels better. Denies any shortness of breath at rest. Gets only short of breath on exertion 10/24. Patient seen examined. Breathing is improved. Denies any fever or chills 10/25. Patient seen and examined. States he feels better. Complaining of blister on right upper lip . REVIEW OF SYSTEMS: CONSTITUTIONAL: No fever, no malaise,. CARDIOVASCULAR: No chest pain, no palpitations, no syncope. PULMONARY as mentioned above GASTROINTESTINAL: No diarrhea, no nausea, no vomiting, no abdominal pain. NEUROLOGICAL: No headaches, no weakness, PHYSICAL EXAMINATION: GENERAL: The patient is alert and oriented x3, ill looking HEENT: Pupils are round and equally reacting to light. EOMI. No scleral icterus. No conjunctival pallor. Normocephalic, atraumatic. No pharyngeal erythema. No thyromegaly. CARDIOVASCULAR: S1 and S2 present. No murmurs, rubs, or gallops. PULMONARY: good air entry bilaterally, coarse breath sounds. ABDOMEN: Soft, nontender, nondistended, normoactive bowel sounds. No palpable organomegaly. MUSCULOSKELETAL: No joint swelling or deformity. EXTREMITIES: No cyanosis, clubbing, or pedal edema. NEUROLOGICAL: Gross neurological examination did not reveal any focal deficits. SKIN: No rashes. Assessment and plan Acute on chronic hypoxic respiratory failure secondary to COPD and pneumonia Pneumonia with opacities throughout the right midlung and subsegmental changes in the left lung base. Sepsis secondary pneumonia Lactic acidosis 3.3 on admission Recent history of pneumonia with sputum cultures growing Serratia and yesrsinia Acute COPD exacerbation. Acute on chronic hypoxic respiratory failure requiring 4 L oxygen via nasal cannula. Patient is currently on 5 L oxygen via nasal cannula. Paroxysmal atrial fibrillation on anticoagulation with Eliquis Severe aortic stenosis with mean gradient of 40 mmHg Hyperglycemia with uncontrolled diabetes type 2 A1c 8.8 Hyperlipidemia Acute on chronic diastolic CHF HFpEF DVT prophylaxis patient is already on anticoagulation Plan: Monitor vital signs Monitor CBC Monitor CMP Continue oxygen supplementation Status post bronchoscopy 10/21. growing stenotrophomonas sensitive to Bactrim and Levaquin Currently on Bactrim Continue DuoNebs and Symbicort. Continue IV Solu-Medrol Ordered Valtrex for herpes labialis Continue metoprolol, Eliquis and amiodarone. Patient is also on Jardiance and Lasix. Patient will need outpatient TAVR workup. Pulmonary, cardiology and ID is on board. Labs and medication were reviewed.. Continue same treatment. Continue with symptomatic treatment. Resume home medication. Monitor labs and vitals. DVT and GI prophylaxis. Further recommendations as per clinical course of the patient Dictation was produced using [employer] dictation software. please excuse any grammatical, word or spelling errors. Objective - Vital Signs Vital signs: Vital Signs Temp 98.1 F 10/25/24 07:00 Pulse 80 10/25/24 09:43 Resp 18 10/25/24 07:00 BP 126/52 10/25/24 07:00 Pulse Ox 96 10/25/24 09:33 FiO2 Intake & Output 10/24/24 10/25/24 10/25/24 18:59 06:59 18:59 Intake Total 150 Output Total 1600 Balance 150 -1600 Intake: Oral 150 Output: Urine 1600 Other: Voiding Method Urinal # Voids 3 - Labs CBC & Chem 7: 10/24/24 09:11 10/24/24 09:11 Labs: Abnormal Lab Results - Last 24 Hours (Table) 10/24/24 10/24/24 10/24/24 Range/Units 11:43 16:51 20:24 POC Glucose (mg/dL) 315 H 319 H 240 H (70-110) mg/dL 10/25/24 10/25/24 Range/Units 02:16 06:06 POC Glucose (mg/dL) 270 H 161 H (70-110) mg/dL Microbiology - Last 24 Hours (Table) 10/21/24 13:20 Gram Stain - Final Bronchoalviolar Lavage - Right Bronchial Washings Culture - Final Stenotrophomonas maltophilia
[2024-10-25 17:02] LABS: Glucose,Whole Blood 203 mg/dL (70-110)
[2024-10-25 20:50] LABS: Glucose,Whole Blood 392 mg/dL (70-110)
[2024-10-26 02:16] LABS: Glucose,Whole Blood 292 mg/dL (70-110)
[2024-10-26 06:03] LABS: Glucose,Whole Blood 172 mg/dL (70-110)
[2024-10-26] MEDS: FUROSEMIDE 40 MG TAB PO SCH (08:44)
[2024-10-26 08:57] VITALS: TEMP 98.1
[2024-10-26 09:03] VITALS: RESP 18
--- NOTE | 2024-10-26 10:50 | P.DS ---
Providers Date of admission: 10/16/24 02:56 Expected date of discharge: 10/26/24 Attending physician: Beth Reed Consults: 10/16/24 02:55 Consult Physician Routine Consulting Provider: Naima Reynoso Consult Reason/Comments: Pna Do you want consulting provider notified?: Yes 10/16/24 02:56 Consult Physician Routine Consulting Provider: Valentine Hansen Consult Reason/Comments: chf Do you want consulting provider notified?: Yes Consult Physician Urgent Consulting Provider: Jeremie Suárez Consult Reason/Comments: hypoxia Do you want consulting provider notified?: Yes 10/22/24 12:48 Consult Physician Routine Consulting Provider: Sanford Carrillo Consult Reason/Comments: edema, enlarged heart per xray, family request Do you want consulting provider notified?: Yes Primary care physician: Britni Peres Hospital Course: Discharge diagnoses; Acute on chronic hypoxic respiratory failure secondary to COPD and pneumonia Pneumonia with opacities throughout the right midlung and subsegmental changes in the left lung base. Sepsis secondary pneumonia Lactic acidosis 3.3 on admission Recent history of pneumonia with sputum cultures growing Serratia and yesrsinia Acute COPD exacerbation. Acute on chronic hypoxic respiratory failure requiring 4 L oxygen via nasal cannula. Patient is currently on 5 L oxygen via nasal cannula. Paroxysmal atrial fibrillation on anticoagulation with Eliquis Severe aortic stenosis with mean gradient of 40 mmHg Hyperglycemia with uncontrolled diabetes type 2 A1c 8.8 Hyperlipidemia Acute on chronic diastolic CHF Hospital course; Patient is a 79-year-old male with a past medical history of atrial fibrillation on anticoagulation with Eliquis, hypertension, diabetes type 2 insulin- dependent, hypertension, hyperlipidemia, BPH, SVT, chronic hypoxic respiratory failure on oxygen at 4 L via nasal cannula, prior history of smoking and recent admission presents to ER with complaints of worsening shortness of breath. Patient also felt like his heart is racing fast. Was also complaining of fever at home. Complains of cough congestion and worsening dyspnea. Chest x-ray on admission showed interval increase in patchy opacities throughout the right mid to lower lung zone with questionable minimal subsegmental changes now identified in the left lung base. Differential considerations include asymmetric edema are bibasilar pneumonia. EKG showed sinus tachycardia 2D echocardiogram showed LVEF 55 to 60%. Moderate concentric LVH. Normal RV size and systolic function. Severe aortic stenosis with mean gradient of 40 mmHg tricuspid regurgitation. RVSP estimated at 32 mmHg. Laboratory data showed WBC 5.65, hemoglobin 12.2 and platelets 189, neutrophils 88.2% Sodium 137 potassium 4.2 chloride 104 bicarb is 22 BUN 36 and creatinine 1.2 and blood sugar 140 A1c 8.8 lactic acid 3.3 Troponin 0.025, proBNP 416 patient was tachypneic and tachycardic on admission 10/17/2024 Patient is currently sitting in the chair. Awake alert and oriented x 3. Shortness of breath better compared to yesterday. No complaints of chest pain. No nausea or vomiting. Patient is being continued on antibiotics and home cefepime. Also on DuoNebs and IV Solu-Medrol. Patient is hyperglycemic likely due to steroids and insulin regimen has been adjusted. Home show WBC 10.0 hemoglobin 10.7 platelets 206 sodium 135 potassium 4.9 chloride 106 bicarb is 18 BUN 48 and creatinine 2.01 and blood sugar 348. A1c 9.1 10/18/2024 Patient evaluated today sitting up at the bedside. He continues to report significant shortness of breath. He is continued on IV cefepime and IV solumedrol. Blood glucose remains elevated and lantus has been increased to 20 units twice daily. Sputum culture has been sent today. 10/19/2024 Patient evaluated today sitting up at the bedside with family present. Concerned about home insulin regimen and discussed currently insulin has been titrated because of the hyperglycemia and will be further adjusted on discharge. Patient remains significantly short of breath with activity. Continues to report productive cough. Sputum culture pending. Continues on IV cefepime. 10/20/2024 Patient is evaluated in follow-up with the medical floor. Chest x-ray reveals worsening right lower lung opacity correlate for pneumonia and pleural effusion. Persistent infiltrate remains in the lateral right lung. White blood cell count remains normal. Patient is currently 98% on 5 L of oxygen via nasal cannula which can be titrated down further. His sputum culture is final and negative at this time. Blood work is improving with a BUN of 36 and creatinine of 1.36. He is continued on oral Lasix daily. He continues on high-dose IV Solu-Medrol 60 mg every 6 hours. He is on IV cefepime. 10/21--patient was seen and examined today. Patient is afebrile, currently on 5 L oxygen by nasal cannula. Remains on cefepime, infectious disease following. Pulmonary following, patient underwent bronchoscopy today. Remains on IV diures is for fluid overload. On bronchodilator protocol and Solu-Medrol. On Eliquis for atrial fibrillation. 10/22. Patient seen examined. States breathing is improved. Denies any chest pain. Complaining of cough. 10/23. Patient seen and examined. Currently on [address] chest done showed scattered reticular opacities throughout the right lung concerning for infectious/inflammatory process. He states he feels better. Denies any shortness of breath at rest. Gets only short of breath on exertion 10/24. Patient seen examined. Breathing is improved. Denies any fever or chills 10/25. Patient seen and examined. States he feels better. Complaining of blister on right upper lip . 10/26. Patient seen and examined. Doing much better, currently on 3 L of oxygen. Pulmonology cleared the patient for discharge. Being discharged on Bactrim for 1 week per ID recommendations outpatient with PCP and pulmonology and infectious disease. PHYSICAL EXAMINATION: GENERAL: The patient is alert and oriented x3, ill looking HEENT: Pupils are round and equally reacting to light. EOMI. No scleral icterus. No conjunctival pallor. Normocephalic, atraumatic. No pharyngeal erythema. No thyromegaly. CARDIOVASCULAR: S1 and S2 present. No murmurs, rubs, or gallops. PULMONARY: good air entry bilaterally, coarse breath sounds. ABDOMEN: Soft, nontender, nondistended, normoactive bowel sounds. No palpable organomegaly. MUSCULOSKELETAL: No joint swelling or deformity. EXTREMITIES: No cyanosis, clubbing, or pedal edema. NEUROLOGICAL: Gross neurological examination did not reveal any focal deficits. SKIN: No rashes. Dictation was produced using [employer] dictation software. please excuse any grammatical, word or spelling errors. Patient Condition at Discharge: Fair Plan - Discharge Summary Discharge Rx Participant: Yes New Discharge Prescriptions: New Furosemide [Lasix] 40 mg PO DAILY 30 Days #30 tab Sulfamethox-Tmp 800-160Mg [Bactrim DS 800-160 mg] 1 each PO BID 7 Days #14 tab Continue Budesonide-Formot 160-4.5 Mcg [Symbicort 160-4.5 Mcg Inhaler] 2 puff INHALATION RT-BID Zolpidem [Ambien] 5 mg PO HS PRN PRN Reason: Insomnia Empagliflozin [Jardiance] 10 mg PO DAILY Apixaban [Eliquis] 5 mg PO BID Ferrous Sulfate [Iron (65 MG Elemental)] 325 mg PO DAILY Vitamin B(Unknown) 1 tab PO DAILY Ipratropium-Albuterol Nebulize [Duoneb 0.5 mg-3 mg/3 ml Soln] 3 ml INHALATION RT-Q2H PRN each PRN Reason: Shortness Of Breath Or Wheezing Insulin Glargine,Hum.rec.anlog [Lantus Solostar Pen] 15 units SQ HS Famotidine [Pepcid] 20 mg PO BID Atorvastatin [Lipitor] 40 mg PO HS Amiodarone [Cordarone] 100 mg PO DAILY Insulin Aspart [NovoLOG Flexpen] See Protocol SQ AC-TID Tamsulosin [Flomax] 0.4 mg PO DAILY predniSONE 15 mg PO Q2D Metoprolol Tartrate [Lopressor] 12.5 mg PO BID Ipratropium-Albuterol Nebulize [Duoneb 0.5 mg-3 mg/3 ml Soln] 3 ml INHALATION RT-QID 30 Days #100 each Azithromycin [Zithromax] 250 mg PO MOWEFR predniSONE [Deltasone] 20 mg PO Q2D Discontinued Furosemide [Lasix] 20 mg PO DAILY Discharge Medication List Budesonide-Formot 160-4.5 Mcg [Symbicort 160-4.5 Mcg Inhaler] 2 puff INHALATION RT-BID 07/17/16 [History] Famotidine [Pepcid] 20 mg PO BID 11/26/23 [History] Zolpidem [Ambien] 5 mg PO HS PRN 11/26/23 [History] Apixaban [Eliquis] 5 mg PO BID 04/02/24 [History] Empagliflozin [Jardiance] 10 mg PO DAILY 04/02/24 [History] Amiodarone [Cordarone] 100 mg PO DAILY 09/22/24 [History] Atorvastatin [Lipitor] 40 mg PO HS 09/22/24 [History] Ferrous Sulfate [Iron (65 MG Elemental)] 325 mg PO DAILY 09/22/24 [History] Insulin Aspart [NovoLOG Flexpen] See Protocol SQ AC-TID 09/22/24 [History] Metoprolol Tartrate [Lopressor] 12.5 mg PO BID 09/22/24 [History] Tamsulosin [Flomax] 0.4 mg PO DAILY 09/22/24 [History] Vitamin B(Unknown) 1 tab PO DAILY 09/22/24 [History] predniSONE 15 mg PO Q2D 09/22/24 [History] Ipratropium-Albuterol Nebulize [Duoneb 0.5 mg-3 mg/3 ml Soln] 3 ml INHALATION RT-Q2H PRN each 09/27/24 [Rx] Ipratropium-Albuterol Nebulize [Duoneb 0.5 mg-3 mg/3 ml Soln] 3 ml INHALATION RT-QID 30 Days #100 each 09/27/24 [Rx] Azithromycin [Zithromax] 250 mg PO MOWEFR 10/16/24 [History] Insulin Glargine,Hum.rec.anlog [Lantus Solostar Pen] 15 units SQ HS 10/16/24 [History] predniSONE [Deltasone] 20 mg PO Q2D 10/16/24 [History] Furosemide [Lasix] 40 mg PO DAILY 30 Days #30 tab 10/26/24 [Rx] Sulfamethox-Tmp 800-160Mg [Bactrim DS 800-160 mg] 1 each PO BID 7 Days #14 tab 10/26/24 [Rx] Follow up Appointment(s)/Referral(s): Parish Rosa DO [STAFF PHYSICIAN] - 1 Week Britni Peres MD [Primary Care Provider] - 1-2 days
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
--- NOTE | 2024-10-26 11:49 | XR ---
EXAMINATION TYPE: XR chest 1V portable DATE OF EXAM: 10/26/2024 11:20 AM COMPARISON: 10/22/2024 CLINICAL INDICATION: Male, 79 years old with history of SOB, TECHNIQUE: XR chest 1V portable views of the chest are obtained. FINDINGS: Demonstrated are scattered senescent parenchymal change. Patchy infiltrate right lower lobe infiltrate right lower lobe is stable. The heart is stable. Hilar and mediastinal structures are within normal limits. Degenerative changes are seen of the dorsal spine. IMPRESSION: 1. Patchy infiltrate right lower lobe infiltrate right lower lobe is stable. [facility], , 10/26/2024 11:47 AM
[2024-10-26 12:22] LABS: Glucose,Whole Blood 176 mg/dL (70-110)
--- NOTE | 2024-10-26 15:29 | P.PN ---
Subjective Progress Note Date: 10/25/24 Principal diagnosis: Reason for follow-up is pneumonia Patient is a 79-year-old male with a past medical history significant for Atrial Fibrillation, Chest Pain / Angina, COPD, Diabetes Mellitus, Hyperlipidemia, Hypertension, Osteoarthritis (OA), Pneumonia, Prostate Disorder, Supraventricular Tachycardia (SVT) recently treated for course of pneumonia presented to hospital with increasing shortness of breath and cough did have abnormal x-ray concerning for pneumonia with a fever. On today's evaluation that is 10/25/2024, patient has been afebrile, patient is breathing slightly comfortably and is currently on 3.5 L nasal oxygen, patient denies having any chest pain and cough slightly decreased in intensity, patient denies nausea vomiting or diarrhea and no abdominal pain. No new lab has been obtained today Objective - Vital Signs Vital signs: Vital Signs Temp 98.2 F 10/25/24 14:00 Pulse 86 10/25/24 14:00 Resp 18 10/25/24 14:00 BP 120/54 10/25/24 14:00 Pulse Ox 95 10/25/24 14:00 FiO2 Intake & Output 10/24/24 10/25/24 10/25/24 18:59 06:59 18:59 Intake Total 150 Output Total 1600 Balance 150 -1600 Intake: Oral 150 Output: Urine 1600 Other: Voiding Method Urinal # Voids 3 - Exam GENERAL DESCRIPTION: An elderly male up in the chair in no distress RESPIRATORY SYSTEM: Unlabored breathing , decreased breath sounds at bases HEART: S1 S2 regular rate and rhythm , ABDOMEN: Soft , no tenderness EXTREMITIES: No edema feet - Labs CBC & Chem 7: 10/24/24 09:11 10/24/24 09:11 Labs: Abnormal Lab Results - Last 24 Hours (Table) 10/21/24 10/24/24 10/25/24 Range/Units 13:20 20:24 02:16 POC Glucose (mg/dL) 240 H 270 H (70-110) mg/dL HSV I DNA PCR DETECTED A (Not detected) 10/25/24 10/25/24 10/25/24 Range/Units 06:06 12:02 17:02 POC Glucose (mg/dL) 161 H 322 H 203 H (70-110) mg/dL HSV I DNA PCR (Not detected) Assessment and Plan (1) Pneumonia Current Visit: Yes Status: Acute Code(s): J18.9 - PNEUMONIA, UNSPECIFIED ORGANISM SNOMED Code(s): 040749353 Plan: 1patient presented to the hospital with increasing shortness of breath and cough bringing up some yellow sputum in this patient did have low-grade fever with evidence of pneumonia chest x-ray in this patient who recently completed course of oral Ceftin and sputum culture at that time were positive for Serratia and Yersinia species will need to cover for more resistant gram-negative pathogen than the regular community-acquired pathogen for this episode of pneumonia 2- sputum as well as blood culture have been negative 3-patient is status post bronchoscopy with significant mount of purulent secretions status post lavage culture which is growing stenotrophomonas sensitive to Bactrim and Levaquin 4patient has been started on Bactrim DS to continue and monitor clinical course closely Dictation was produced using [employer] dictation software. please excuse any grammatical, word or spelling errors. Time with Patient: Less than 30
--- NOTE | 2024-10-26 15:30 | P.PN ---
Subjective Progress Note Date: 10/26/24 Principal diagnosis: Reason for follow-up is pneumonia Patient is a 79-year-old male with a past medical history significant for Atrial Fibrillation, Chest Pain / Angina, COPD, Diabetes Mellitus, Hyperlipidemia, Hypertension, Osteoarthritis (OA), Pneumonia, Prostate Disorder, Supraventricular Tachycardia (SVT) recently treated for course of pneumonia presented to hospital with increasing shortness of breath and cough did have abnormal x-ray concerning for pneumonia with a fever. On today's evaluation that is10/26/2024, Patient is afebrile this morning patient denies having any chest pain shortness of breath or any worsening cough, the patient is currently on 4 L nasal cannula oxygen, patient denies any abdominal pain no diarrhea no nausea no vomiting. No new labs has been repeated today BAL with stenotrophomonas Objective - Vital Signs Vital signs: Vital Signs Temp 98.1 F 10/26/24 07:00 Pulse 64 10/26/24 12:12 Resp 18 10/26/24 07:00 BP 141/61 10/26/24 07:00 Pulse Ox 96 10/26/24 07:00 FiO2 Intake & Output 10/25/24 10/26/24 10/26/24 18:59 06:59 18:59 Intake Total 200 Output Total 600 Balance -600 200 Weight 64.5 kg Intake: Oral 200 Output: Urine 600 Other: Voiding Method Urinal Toilet Toilet Urinal Urinal # Voids 3 - Exam GENERAL DESCRIPTION: An elderly male up in the chair in no distress RESPIRATORY SYSTEM: Unlabored breathing , decreased breath sounds at bases HEART: S1 S2 regular rate and rhythm , ABDOMEN: Soft , no tenderness EXTREMITIES: No edema feet - Labs CBC & Chem 7: 10/24/24 09:11 10/24/24 09:11 Labs: Abnormal Lab Results - Last 24 Hours (Table) 10/21/24 10/25/24 10/25/24 Range/Units 13:20 17:02 20:48 POC Glucose (mg/dL) 203 H 392 H (70-110) mg/dL HSV I DNA PCR DETECTED A (Not detected) 10/26/24 10/26/24 10/26/24 Range/Units 02:15 06:01 12:21 POC Glucose (mg/dL) 292 H 172 H 176 H (70-110) mg/dL HSV I DNA PCR (Not detected) Assessment and Plan (1) Pneumonia Current Visit: Yes Status: Acute Code(s): J18.9 - PNEUMONIA, UNSPECIFIED ORGANISM SNOMED Code(s): 716943501 Plan: 1patient presented to the hospital with increasing shortness of breath and cough bringing up some yellow sputum in this patient did have low-grade fever with evidence of pneumonia chest x-ray in this patient who recently completed course of oral Ceftin and sputum culture at that time were positive for Serratia and Yersinia species will need to cover for more resistant gram-negative pathogen than the regular community-acquired pathogen for this episode of pneumonia 2- sputum as well as blood culture have been negative 3-patient is status post bronchoscopy with significant mount of purulent secretions status post lavage culture which is growing stenotrophomonas sensitive to Bactrim and Levaquin 4patient tolerating Bactrim DS to continue for 7 days on discharge discussed with the admitting physician working on discharge Dictation was produced using [employer] dictation software. please excuse any grammatical, word or spelling errors. Time with Patient: Less than 30
[2024-10-26 16:46] VITALS: BP 128/62; PULSE 64
[2024-10-26 16:57] LABS: Glucose,Whole Blood 203 mg/dL (70-110)
== END 2024-10-26 18:04 | disposition home or self-care (01) | DRG 871 ==
LOC: EC 01:10 → 3SCARD 02:56 → 4SSUR 10-17 05:43
PROVIDERS: ADMIT Hospitalist; ATTEND Hospitalist
PROC: 0B9F8ZX Drainage of Right Lower Lung Lobe, Via Natural or Artificial Opening Endoscopic, Diagnostic (ICD-10-PCS; principal; 2024-10-21 07:30)
PROC: 0B968ZX Drainage of Right Lower Lobe Bronchus, Via Natural or Artificial Opening Endoscopic, Diagnostic (ICD-10-PCS; principal; 2024-10-21 07:30)
DX: A41.9 Sepsis, unspecified organism (principal); I50.33 Acute on chronic diastolic (congestive) heart failure; J96.21 Acute and chronic respiratory failure with hypoxia; J15.69 Pneumonia due to other Gram-negative bacteria; E87.20 Acidosis, unspecified; I13.0 Hypertensive heart and chronic kidney disease with heart failure and stage 1 through stage 4 chronic kidney disease, or unspecified chronic kidney disease; I50.32 Chronic diastolic (congestive) heart failure; J44.1 Chronic obstructive pulmonary disease with (acute) exacerbation; E11.65 Type 2 diabetes mellitus with hyperglycemia; I08.2 Rheumatic disorders of both aortic and tricuspid valves; N18.9 Chronic kidney disease, unspecified; J44.0 Chronic obstructive pulmonary disease with (acute) lower respiratory infection; N17.9 Acute kidney failure, unspecified; I48.0 Paroxysmal atrial fibrillation; E11.22 Type 2 diabetes mellitus with diabetic chronic kidney disease; R65.20 Severe sepsis without septic shock; T38.0X5A Adverse effect of glucocorticoids and synthetic analogues, initial encounter; Z87.01 Personal history of pneumonia (recurrent); Z79.01 Long term (current) use of anticoagulants; E78.5 Hyperlipidemia, unspecified; I25.2 Old myocardial infarction; Z99.81 Dependence on supplemental oxygen; Z79.52 Long term (current) use of systemic steroids; Z87.891 Personal history of nicotine dependence; N40.0 Benign prostatic hyperplasia without lower urinary tract symptoms; Z77.090 Contact with and (suspected) exposure to asbestos; Z79.51 Long term (current) use of inhaled steroids; Z79.84 Long term (current) use of oral hypoglycemic drugs; Z79.899 Other long term (current) drug therapy; Z96.643 Presence of artificial hip joint, bilateral; Z88.0 Allergy status to penicillin; I35.0 Nonrheumatic aortic (valve) stenosis; Z87.19 Personal history of other diseases of the digestive system; Z98.42 Cataract extraction status, left eye; Z98.41 Cataract extraction status, right eye
CPT/HCPCS: 31624; 31645; 36410; 36415; 71045; 71260; 76937; 80048; 80053; 80061; 83036; 83605; 83735; 83880; 84100; 84145; 84439; 84443; 84484; 85025; 85610; 85730; 87040; 87070; 87077; 87102; 87116; 87186; 87205; 87206; 87496; 87498; 87502; 87529; 87634; 87635; 87798; 88108; 88305; 89050; 93005; 93306; 94640; 94760; 96361; 96365; 96366; 96367; 96368; 96375; 99291

== ENCOUNTER 2024-10-29 09:56 | Inpatient (IN) | payer MEDICARE ==
[2024-10-29 10:28] LABS: Basophils # (A) 0.02 10*3/uL (0.00-0.10); Basophils % (A) 0.1 %; Eosinophils # (A) 0.01 10*3/uL (0.04-0.35); Eosinophils % (A) 0.1 %; HCT 33.3 % (39.6-50.0); HGB 10.8 g/dL (13.0-17.0); Lymphocytes # (A) 0.23 10*3/uL (0.90-5.00); Lymphocytes % (A) 1.4 %; MCH 29.8 pg (27.0-32.0); MCHC 32.4 g/dL (32.0-37.0); MCV 91.7 fL (80.0-97.0); Monocytes # (A) 0.71 10*3/uL (0.20-1.00); Monocytes % (A) 4.4 %; Neutrophils # (A) 14.91 10*3/uL (1.80-7.70); Neutrophils % (A) 92.7 %; Platelet Count 156 10*3/uL (140-440); RBC 3.63 10*6/uL (4.40-5.60); RDW 16.6 % (11.5-14.5); WBC 16.09 10*3/uL (4.50-10.00)
[2024-10-29] MEDS: HYDROCORTISONE SUCCINATE 100 MG/2 ML VIAL IV STA (10:30)
[2024-10-29] MEDS: ACETAMINOPHEN TAB 500 MG TAB PO STA (10:31)
[2024-10-29] MEDS: CEFEPIME 2 GM in SODIUM CHLORIDE 0.9% 100 ML IVPB STA (10:33)
--- NOTE | 2024-10-29 10:33 | ED ---
General Adult HPI - General Chief complaint: Chest Pain Stated complaint: Chest pain Time Seen by Provider: 10/29/24 10:00 Source: patient, EMS, RN notes reviewed, old records reviewed Mode of arrival: EMS Limitations: no limitations - History of Present Illness Initial comments: This is a 79-year-old male who presents to the emergency department complaining of difficulty breathing and weakness. Patient states he was discharged from the hospital few days ago with pneumonia. Patient states since he has been home he has been on 5 L of oxygen. Patient states the other day he fell was on the ground for about 6 hours but his neighbor helped him up. Patient states today he is too weak to stand so he called EMS. Patient denies any chest pain. Florinda jackson has any fever that he has taken recently but he had a fever in the hospital. Patient denies any abdominal pain patient has nausea vomit diarrhea. - Related Data Home Medications Medication Instructions Recorded Confirmed Budesonide-Formot 160-4.5 Mcg 2 puff INHALATION RT-BID 07/17/16 10/29/24 [Symbicort 160-4.5 Mcg Inhaler] Famotidine [Pepcid] 20 mg PO BID 11/26/23 10/29/24 Zolpidem [Ambien] 5 mg PO HS PRN 11/26/23 10/29/24 Apixaban [Eliquis] 5 mg PO BID 04/02/24 10/29/24 Empagliflozin [Jardiance] 10 mg PO DAILY 04/02/24 10/29/24 Amiodarone [Cordarone] 100 mg PO DAILY 09/22/24 10/29/24 Atorvastatin [Lipitor] 40 mg PO HS 09/22/24 10/29/24 Ferrous Sulfate [Iron (65 MG 325 mg PO DAILY 09/22/24 10/29/24 Elemental)] Insulin Aspart [NovoLOG Flexpen] See Protocol SQ AC-TID 09/22/24 10/29/24 Metoprolol Tartrate [Lopressor] 12.5 mg PO BID 09/22/24 10/29/24 Tamsulosin [Flomax] 0.4 mg PO DAILY 09/22/24 10/29/24 Vitamin B(Unknown) 1 tab PO DAILY 09/22/24 10/29/24 predniSONE 15 mg PO Q2D 09/22/24 10/29/24 Azithromycin [Zithromax] 250 mg PO MOWEFR 10/16/24 10/29/24 Insulin Glargine,Hum.rec.anlog 15 units SQ HS 10/16/24 10/29/24 [Lantus Solostar Pen] predniSONE [Deltasone] 20 mg PO Q2D 10/16/24 10/29/24 Sulfamethox-Tmp 800-160Mg [Bactrim 1 tab PO BID 10/29/24 10/29/24 DS 800-160 mg] Previous Rx's Medication Instructions Recorded Ipratropium-Albuterol Nebulize 3 ml INHALATION RT-Q2H PRN each 09/27/24 [Duoneb 0.5 mg-3 mg/3 ml Soln] Ipratropium-Albuterol Nebulize 3 ml INHALATION RT-QID 30 Days 09/27/24 [Duoneb 0.5 mg-3 mg/3 ml Soln] #100 each Furosemide [Lasix] 40 mg PO DAILY 30 Days #30 tab 10/26/24 Allergies Allergy/AdvReac Type Severity Reaction Status Date / Time Penicillins Allergy Rash/Hives Verified 10/16/24 14:17 Review of Systems ROS Statement: Those systems with pertinent positive or pertinent negative responses have been documented in the HPI. ROS Other: All systems not noted in ROS Statement are negative. Past Medical History Past Medical History: Atrial Fibrillation, Chest Pain / Angina, COPD, Diabetes Mellitus, Hyperlipidemia, Hypertension, Osteoarthritis (OA), Pneumonia, Prostate Disorder, Supraventricular Tachycardia (SVT) Additional Past Medical History / Comment(s): Chronic hypoxic respiratory failure with home oxygen pt mostly just wears at night, past acute hypoxic respiratory failure requiring bipap, newly diagnosed , BPH, UTI Last Myocardial Infarction Date:: 2008 History of Any Multi-Drug Resistant Organisms: None Reported Past Surgical History: Back Surgery, Heart Catheterization, Hernia Repair, Joint Replacement, Orthopedic Surgery Additional Past Surgical History / Comment(s): microlaryngoscopy w/ lt vocal cord bx-neg, bronch-lung bx-neg, lt inguinal hernia, low back surgery, bilateral total hip arthroplasties, bilateral cataracts removed., colonoscopy, cataract surgery bilateral Past Anesthesia/Blood Transfusion Reactions: No Reported Reaction Past Psychological History: No Psychological Hx Reported Smoking Status: Former smoker Past Alcohol Use History: None Reported Past Drug Use History: None Reported - Past Family History Mother Family Medical History: COPD, Diabetes Mellitus Father Family Medical History: COPD, Diabetes Mellitus Brother(s) Family Medical History: Cancer Additional Family Medical History / Comment(s): leukemia General Exam - General Exam Comments Initial Comments: GENERAL: Patient is well-developed and well-nourished. Patient is nontoxic and well- hydrated and is in mild distress. ENT: Neck is soft and supple. No significant lymphadenopathy is noted. Oropharynx is clear. Moist mucous membranes. Neck has full range of motion without eliciting any pain. EYES: The sclera were anicteric and conjunctiva were pink and moist. Extraocular movements were intact and pupils were equal round and reactive to light. Eyelids were unremarkable. PULMONARY: Unlabored respirations. Good breath sounds bilaterally. No audible rales rhonchi or wheezing was noted. CARDIOVASCULAR: Tachycardic at about 110 bpm. ABDOMEN: Soft and nontender with normal bowel sounds. SKIN: Skin is clear with no lesions or rashes and otherwise unremarkable. NEUROLOGIC: Patient is alert and oriented x3. Cranial nerves II through XII are grossly intact. Motor and sensory are also intact. Normal speech, volume and content. Symmetrical smile. MUSCULOSKELETAL: Normal extremities with adequate strength and full range of motion. Bilateral peripheral edema LYMPHATICS: No significant lymphadenopathy is noted PSYCHIATRIC: Normal psychiatric evaluation. Limitations: no limitations Course Vital Signs 10/29/24 10/29/24 10/29/24 09:58 10:02 10:41 Temperature 100.0 F H Pulse Rate 112 H 101 H Pulse Rate [ 111 H Special Education Resource Room Teacher ] Respiratory 18 18 Rate Blood Pressure 83/56 81/49 O2 Sat by Pulse 97 99 Oximetry Medical Decision Making - Medical Decision Making EKG is interpreted by myself and EKG shows a sinus tachycardia at 110 bpm SD of 252 QRS is 89 QT interval 307 QTc is 372. Patient EKG shows no ST segment elevation or depression. Was pt. sent in by a medical professional or institution (, PA, SERVICE COORDINATOR, urgent care, hospital, or retirement...) When possible be specific @ -No Did you speak to anyone other than the patient for history (EMS, parent, family, police, friend...)? What history was obtained from this source @ -No Did you review nursing and triage notes (agree or disagree)? Why? @ -I reviewed and agree with nursing and triage notes Were old charts reviewed (outside hosp., previous admission, EMS record, old EKG, old radiological studies, urgent care reports/EKG's, retirement records)? Report findings @ -No old charts were reviewed Differential Diagnosis? @ -Differential Weakness: Hypoglycemia, shock, sepsis, hyponatremia, anemia, infection, [place], ETOH, adverse medicine reaction, overdose, stroke, this is not meant to be an all-inclusive list. EKG interpreted by me (3pts min.). @ -As above X-rays interpreted by me (1pt min.). @ -Patient has infiltrate on the right side possibly on the left as well. CT interpreted by me (1pt min.). @ -None done U/S interpreted by me (1pt. min.). @ -None done What testing was considered but not performed or refused? (CT, X-rays, U/S, labs)? Why? @ -None What meds were considered but not given or refused? Why? @ -None Did you discuss the management of the patient with other professionals (professionals i.e. , PA, SERVICE COORDINATOR, lab, RT, psych nurse, social and human services assistant, privacy manager, teacher, agricultural technical officer, protective services case worker)? Give summary @ -I spoke with [facility] hospitalist agreed admit the patient admit the patient wrote admitting orders Was smoking cessation discussed for >3mins.? @ -No Was critical care preformed (if so, how long)? @ -No Were there social determinants of health that impacted care today? How? (Homelessness, low income, unemployed, alcoholism, drug addiction, transportation, low edu. Level, literacy, decrease access to med. care, usp, rehab)? @ -No Was there de-escalation of care discussed even if they declined (Discuss DNR or withdrawal of care, Hospice)? DNR status @ -No What co-morbidities impacted this encounter? (DM, HTN, Smoking, COPD, CAD, Cancer, CVA, ARF, Chemo, Hep., AIDS, mental health diagnosis, sleep apnea, morbid obesity)? @ -None Was patient admitted / discharged? Hospital course, mention meds given and route, prescriptions, significant lab abnormalities, going to OR and other pertinent info. @ -Patient was started on antibiotics in the emergency department. Patient has pneumonia and will be admitted for such Undiagnosed new problem with uncertain prognosis? @ -No Drug Therapy requiring intensive monitoring for toxicity (Heparin, Nitro, Insulin, Cardizem)? @ -No Were any procedures done? @ -No Diagnosis/symptom? @ -Pneumonia Acute, or Chronic, or Acute on Chronic? @ -Acute Uncomplicated (without systemic symptoms) or Complicated (systemic symptoms)? @ -Complicated Side effects of treatment? @ -No Exacerbation, Progression, or Severe Exacerbation? @ -No Poses a threat to life or bodily function? How? (Chest pain, [place], [place], pneumonia, PE, COPD, DKA, ARF, appy, cholecystitis, CVA, Diverticulitis, Homicidal, Suicidal, threat to staff... and all critical care pts) @ -Yes this can lead to sepsis and endorgan dysfunction Patient received only 500 cc of fluid because patient has a strong history of congestive heart failure and has edema in both legs - Lab Data Result diagrams: 10/29/24 10:17 10/29/24 10:17 Lab Results 10/29/24 10/29/24 10/29/24 Range/Units 10:17 10:17 10:17 WBC 16.09 H (4.50-10.00) 10*3/uL RBC 3.63 L (4.40-5.60) 10*6/uL Hgb 10.8 L (13.0-17.0) g/dL Hct 33.3 L (39.6-50.0) % MCV 91.7 (80.0-97.0) fL MCH 29.8 (27.0-32.0) pg MCHC 32.4 (32.0-37.0) g/dL Plt Count 156 (140-440) 10*3/uL MPV 12.5 H (9.5-12.2) fL Immature Gran % (Auto) 1.3 % Neutrophils % 92.7 % Lymphocytes % 1.4 % Monocytes % 4.4 % Eosinophils % 0.1 % Basophils % 0.1 % Immature Gran # 0.21 H (0.00-0.04) 10*3/uL Neutrophils # 14.91 H (1.80-7.70) 10*3/uL Lymphocytes # 0.23 L (0.90-5.00) 10*3/uL Monocytes # 0.71 (0.20-1.00) 10*3/uL Eosinophils # 0.01 L (0.04-0.35) 10*3/uL Basophils # 0.02 (0.00-0.10) 10*3/uL PT 12.9 H (10.0-12.5) sec INR 1.2 H (<1.2) APTT 25.5 (22.0-30.0) sec Sodium 133 L (137-145) mmol/L Potassium 4.9 (3.5-5.1) mmol/L Chloride 103 (98-107) mmol/L Carbon Dioxide 21 L (22-30) mmol/L Anion Gap 9 mmol/L BUN 49 H (9-20) mg/dL Creatinine 1.71 H (0.66-1.25) mg/dL Est GFR (CKD-EPI)AfAm 43 (>60 ml/min/1.73 sqM) Est GFR (CKD-EPI)NonAf 38 (>60 ml/min/1.73 sqM) Glucose 232 H (74-99) mg/dL Plasma Lactic Acid Jakub (0.7-2.0) mmol/L Calcium 9.0 (8.4-10.2) mg/dL Total Bilirubin 0.8 (0.2-1.3) mg/dL AST 27 (17-59) U/L ALT 51 H (4-49) U/L Alkaline Phosphatase 86 (38-126) U/L Creatine Kinase 68 (55-170) U/L Total Protein 5.0 L (6.3-8.2) g/dL Albumin 2.8 L (3.5-5.0) g/dL 10/29/24 Range/Units 10:17 WBC (4.50-10.00) 10*3/uL RBC (4.40-5.60) 10*6/uL Hgb (13.0-17.0) g/dL Hct (39.6-50.0) % MCV (80.0-97.0) fL MCH (27.0-32.0) pg MCHC (32.0-37.0) g/dL Plt Count (140-440) 10*3/uL MPV (9.5-12.2) fL Immature Gran % (Auto) % Neutrophils % % Lymphocytes % % Monocytes % % Eosinophils % % Basophils % % Immature Gran # (0.00-0.04) 10*3/uL Neutrophils # (1.80-7.70) 10*3/uL Lymphocytes # (0.90-5.00) 10*3/uL Monocytes # (0.20-1.00) 10*3/uL Eosinophils # (0.04-0.35) 10*3/uL Basophils # (0.00-0.10) 10*3/uL PT (10.0-12.5) sec INR (<1.2) APTT (22.0-30.0) sec Sodium (137-145) mmol/L Potassium (3.5-5.1) mmol/L Chloride (98-107) mmol/L Carbon Dioxide (22-30) mmol/L Anion Gap mmol/L BUN (9-20) mg/dL Creatinine (0.66-1.25) mg/dL Est GFR (CKD-EPI)AfAm (>60 ml/min/1.73 sqM) Est GFR (CKD-EPI)NonAf (>60 ml/min/1.73 sqM) Glucose (74-99) mg/dL Plasma Lactic Acid Jakub 1.9 (0.7-2.0) mmol/L Calcium (8.4-10.2) mg/dL Total Bilirubin (0.2-1.3) mg/dL AST (17-59) U/L ALT (4-49) U/L Alkaline Phosphatase (38-126) U/L Creatine Kinase (55-170) U/L Total Protein (6.3-8.2) g/dL Albumin (3.5-5.0) g/dL Disposition Clinical Impression: Pneumonia Disposition: ADMITTED IP TO THIS HOSP Referrals: Britni Peres MD [Primary Care Provider] - 1-2 days Time of Disposition: 12:39
[2024-10-29] MEDS: LACTATED RINGERS 500 ML IV ONE ×2 (10:34→12:55)
[2024-10-29 10:45] LABS: ALT 51 U/L (4-49); AST 27 U/L (17-59); African American GFR (CKD) 43 (>60 ml/min/1.73 sqM); Albumin 2.8 g/dL (3.5-5.0); Alkaline Phosphatase 86 U/L (38-126); Anion Gap 9 mmol/L; Blood Urea Nitrogen 49 mg/dL (9-20); Calcium 9.0 mg/dL (8.4-10.2); Carbon Dioxide 21 mmol/L (22-30); Chloride 103 mmol/L (98-107); Creatine Kinase 68 U/L (55-170); Glucose 232 mg/dL (74-99); Non-African American GFR(CKD) 38 (>60 ml/min/1.73 sqM); Potassium 4.9 mmol/L (3.5-5.1); Sodium 133 mmol/L (137-145); Total Protein 5.0 g/dL (6.3-8.2)
[2024-10-29 10:58] LABS: INR 1.2 (<1.2); Partial Thromboplastin Time 25.5 sec (22.0-30.0); Prothrombin Time 12.9 sec (10.0-12.5)
--- NOTE | 2024-10-29 11:26 | XR ---
EXAMINATION TYPE: XR chest 2V DATE OF EXAM: 10/29/2024 10:57 AM COMPARISON: Chest radiographs from 10/26/2024. CLINICAL INDICATION: Male, 79 years old with history of Fever; [facility] TECHNIQUE: XR chest 2V Frontal and lateral views of the chest. FINDINGS: Lungs/Pleura: No evidence of focal consolidation or pneumothorax. Blunting of the costophrenic angles is present. Pulmonary vascularity: Unremarkable. Heart/mediastinum: Cardiomediastinal silhouette is enlarged. Musculoskeletal: Degenerative changes of the shoulder joints. IMPRESSION: 1. No discrete consolidation changes. 2. Cardiomegaly, pulmonary vascular congestion and bilateral pleural effusions. Correlate with BNP f or congestive heart failure. [facility], , 10/29/2024 11:24 AM
[2024-10-29] MEDS ORDERED: PNEUMONIA PROTOCOL UTILIZED 1 EACH MISC PO PRN (12:39)
[2024-10-29] MEDS: DIPHENOX-ATROP 2.5-0.025 MG 1 EACH TAB PO STA (13:35)
[2024-10-29] MEDS: AZITHROMYCIN 500 MG in SODIUM CHLORIDE 0.9% 250 ML IVPB STA (13:36)
[2024-10-29 13:51] LABS: Bilirubin,Urine 1+ (Negative); Blood,Urine Trace (Negative); Color,Urine Yellow; Glucose,Urine (UA) 4+ (Negative); Hyaline Casts,Urine 1 /lpf (0-2); Ketones,Urine Negative (Negative); Leukocyte Esterase,Urine Moderate (Negative); Mucus,Urine Rare /hpf; Nitrite,Urine Negative (Negative); PH, Urine 5.5 (5.0-8.0); Protein,Urine 2+ (Negative); RBC,Urine 8 /hpf (0-5); Specific Gravity,Urine 1.022 (1.001-1.035); Squamous Epithelial Cell,Urine <1 /hpf (0-4); Urobilinogen,Urine <2.0 mg/dL (<2.0); WBC,Urine 42 /hpf (0-5); White Blood Cell Casts,Urine 4 /lpf (0)
[2024-10-29] MEDS ORDERED: DEXTROSE 50% SYRINGE 50 ML IVP PRN ×2 (15:00)
--- NOTE | 2024-10-29 15:02 | P.HPIM ---
History of Present Illness H&P Date: 10/29/24 History of present illness; 79-year-old male patient with a known history of atrial fibrillation, anticoagulated with Eliquis diabetes mellitus, hyperlipidemia, oxygen dependent chronic obstructive pulmonary disease who presents the hospital because of shortness of breath. Patient was discharged last week after being admitted for shortness of breath, was being treated for pneumonia, had bronchoscopy with lavage done that was positive for stenotrophomonas and was discharged on Bactrim. Patient stated he was doing well for the first couple of days after his discharge but on Friday he had a fall, stated that his legs gave up and he ended up on the floor. Patient was laying on the floor for 6 hours, had to call neighbor for help. Patient did not had any loss of consciousness. Following the fall patient was complaining of back pain, daughter came to check on him. Daughter noted that the patient was getting more weak and had a hard time ambulating. Patient was complaining of shortness of breath. There was no complaint of chest pain. Patient denies any palpitation. There is no complaint of orthopnea or PND. Denies any nausea, vomiting abdominal pain. Patient denies any complaint of dizziness. There is no complaint of headache. Patient is complaining of abdominal distention and swelling of lower extremities. Because of shortness of breath and increasing weakness, patient brought the ER Initial lab work done in the ER showed WBC 16.09, hemoglobin 8, platelet count 156, sodium 133, potassium 4.9, BUN 14, creatinine 1.71, glucose 232, lactate 1.9 AST 27, ALT 51, UA done showed urine WBC 42, leukocyte esterase moderate amount, urine nitrate negative EKG done in the ER showed heart rate of 110, no ST segment elevation or depression seen, no T-wave inversions seen. Chest x-ray done in the ER showed no discrete consolidation changes, cardiomegaly, pulm congestion and bilateral pleural effusions Patient admitted to internal medicine service REVIEW OF SYSTEMS: CONSTITUTIONAL: As mentioned above HEENT: No recent visual problems or hearing problems. Denied any sore throat. CARDIOVASCULAR: As mentioned above PULMONARY: As mentioned above. GASTROINTESTINAL: No diarrhea, no nausea, no vomiting, no abdominal pain. NEUROLOGICAL: No headaches, no weakness, no numbness. HEMATOLOGICAL: Denies any bleeding or petechiae. GENITOURINARY: Denies any burning micturition, frequency, or urgency. MUSCULOSKELETAL/RHEUMATOLOGICAL: Denies any joint pain, swelling, or any muscle pain. ENDOCRINE: Denies any polyuria or polydipsia. The rest of the 14-point review of systems is negative. PHYSICAL EXAMINATION: GENERAL: The patient is alert and oriented x3, ill looking HEENT: Pupils are round and equally reacting to light. EOMI. No scleral icterus. No conjunctival pallor. Normocephalic, atraumatic. No pharyngeal erythema. No thyromegaly. CARDIOVASCULAR: S1 and S2 present. No murmurs, rubs, or gallops. PULMONARY: Diminished breath sounds at bases, crackles audible ABDOMEN: Soft, nontender, nondistended, normoactive bowel sounds. No palpable organomegaly. MUSCULOSKELETAL: No joint swelling or deformity. EXTREMITIES: No cyanosis, clubbing, 1+ pitting edema lower extremities NEUROLOGICAL: Gross neurological examination did not reveal any focal deficits. SKIN: No rashes. Assessment and plan Fall Generalized weakness Chronic hypoxic respiratory failure Bacterial pneumonia, recent bronchial lavage showing stenotrophomonas History of COPD Moderate to severe aortic stenosis mean gradient 35 mmHg History of paroxysmal atrial fibrillation, currently sinus rhythm Acute on chronic HFpEF Type 2 diabetes Monitor vital signs Monitor CBC Monitor CMP Continue telemetry monitoring Ordered blood cultures Ordered CRP ordered ESR ordered Pro-Dwight ordered proBNP Ordered IV cefepime Patient is currently borderline hypotensive, will hold off on diuresis at this time depending on patient's proBNP levels Resume home meds Consult pulmonology Consult ID Labs and medication were reviewed.. Continue same treatment. Continue with symptomatic treatment. Resume home medication. Monitor labs and vitals. DVT and GI prophylaxis. Further recommendations as per clinical course of the patient Dictation was produced using [employer] dictation software. please excuse any grammatical, word or spelling errors. Past Medical History Past Medical History: Atrial Fibrillation, Chest Pain / Angina, COPD, Diabetes Mellitus, Hyperlipidemia, Hypertension, Osteoarthritis (OA), Pneumonia, Prostate Disorder, Supraventricular Tachycardia (SVT) Additional Past Medical History / Comment(s): Chronic hypoxic respiratory failure with home oxygen pt mostly just wears at night, past acute hypoxic respiratory failure requiring bipap, newly diagnosed , BPH, UTI Last Myocardial Infarction Date:: 2008 History of Any Multi-Drug Resistant Organisms: None Reported Past Surgical History: Back Surgery, Heart Catheterization, Hernia Repair, Joint Replacement, Orthopedic Surgery Additional Past Surgical History / Comment(s): microlaryngoscopy w/ lt vocal cord bx-neg, bronch-lung bx-neg, lt inguinal hernia, low back surgery, bilateral total hip arthroplasties, bilateral cataracts removed., colonoscopy, cataract surgery bilateral Past Anesthesia/Blood Transfusion Reactions: No Reported Reaction Past Psychological History: No Psychological Hx Reported Smoking Status: Former smoker Past Alcohol Use History: None Reported Past Drug Use History: None Reported - Past Family History Mother Family Medical History: COPD, Diabetes Mellitus Father Family Medical History: COPD, Diabetes Mellitus Brother(s) Family Medical History: Cancer Additional Family Medical History / Comment(s): leukemia Medications and Allergies Home Medications Medication Instructions Recorded Confirmed Type Budesonide-Formot 160-4.5 Mcg 2 puff INHALATION RT-BID 07/17/16 10/29/24 History [Symbicort 160-4.5 Mcg Inhaler] Famotidine [Pepcid] 20 mg PO BID 11/26/23 10/29/24 History Zolpidem [Ambien] 5 mg PO HS PRN 11/26/23 10/29/24 History Apixaban [Eliquis] 5 mg PO BID 04/02/24 10/29/24 History Empagliflozin [Jardiance] 10 mg PO DAILY 04/02/24 10/29/24 History Amiodarone [Cordarone] 100 mg PO DAILY 09/22/24 10/29/24 History Atorvastatin [Lipitor] 40 mg PO HS 09/22/24 10/29/24 History Ferrous Sulfate [Iron (65 MG 325 mg PO DAILY 09/22/24 10/29/24 History Elemental)] Insulin Aspart [NovoLOG Flexpen] See Protocol SQ AC-TID 09/22/24 10/29/24 History Metoprolol Tartrate [Lopressor] 12.5 mg PO BID 09/22/24 10/29/24 History Tamsulosin [Flomax] 0.4 mg PO DAILY 09/22/24 10/29/24 History Vitamin B(Unknown) 1 tab PO DAILY 09/22/24 10/29/24 History predniSONE 15 mg PO Q2D 09/22/24 10/29/24 History Ipratropium-Albuterol Nebulize 3 ml INHALATION RT-Q2H PRN each 09/27/24 5 Rx [Duoneb 0.5 mg-3 mg/3 ml Soln] Ipratropium-Albuterol Nebulize 3 ml INHALATION RT-QID 30 Days 09/27/24 10/29/24 Rx [Duoneb 0.5 mg-3 mg/3 ml Soln] #100 each Azithromycin [Zithromax] 250 mg PO MOWEFR 10/16/24 10/29/24 History Insulin Glargine,Hum.rec.anlog 15 units SQ HS 10/16/24 10/29/24 History [Lantus Solostar Pen] predniSONE [Deltasone] 20 mg PO Q2D 10/16/24 10/29/24 History Furosemide [Lasix] 40 mg PO DAILY 30 Days #30 tab 10/26/24 10/29/24 Rx Sulfamethox-Tmp 800-160Mg [Bactrim 1 tab PO BID 10/29/24 10/29/24 History DS 800-160 mg] Allergies Allergy/AdvReac Type Severity Reaction Status Date / Time Penicillins Allergy Rash/Hives Verified 10/16/24 14:17 Physical Exam Vitals: Vital Signs Temp Pulse Pulse Resp BP Pulse Ox 10/29/24 13:28 97.9 F 80 18 86/54 99 10/29/24 12:57 88 18 115/85 93 L 10/29/24 10:41 101 H 18 81/49 99 10/29/24 10:02 111 H 10/29/24 09:58 100.0 F H 112 H 18 83/56 97 Intake and Output 10/28/24 10/29/24 10/29/24 22:59 06:59 14:59 Other: Weight 83.6 kg Results CBC & Chem 7: 10/29/24 10:17 10/29/24 10:17 Labs: Abnormal Lab Results - Last 24 Hours (Table) 10/29/24 10/29/24 10/29/24 Range/Units 10:17 10:17 10:17 WBC 16.09 H (4.50-10.00) 10*3/uL RBC 3.63 L (4.40-5.60) 10*6/uL Hgb 10.8 L (13.0-17.0) g/dL Hct 33.3 L (39.6-50.0) % MPV 12.5 H (9.5-12.2) fL Immature Gran # 0.21 H (0.00-0.04) 10*3/uL Neutrophils # 14.91 H (1.80-7.70) 10*3/uL Lymphocytes # 0.23 L (0.90-5.00) 10*3/uL Eosinophils # 0.01 L (0.04-0.35) 10*3/uL PT 12.9 H (10.0-12.5) sec INR 1.2 H (<1.2) Sodium 133 L (137-145) mmol/L Carbon Dioxide 21 L (22-30) mmol/L BUN 49 H (9-20) mg/dL Creatinine 1.71 H (0.66-1.25) mg/dL Glucose 232 H (74-99) mg/dL ALT 51 H (4-49) U/L Total Protein 5.0 L (6.3-8.2) g/dL Albumin 2.8 L (3.5-5.0) g/dL Urine Protein (Negative) Urine Glucose (UA) (Negative) Urine Blood (Negative) Urine Bilirubin (Negative) Ur Leukocyte Esterase (Negative) Urine RBC (0-5) /hpf Urine WBC (0-5) /hpf Urine WBC Clumps (None) /hpf Urine Mucus (None) /hpf 10/29/24 Range/Units 12:00 WBC (4.50-10.00) 10*3/uL RBC (4.40-5.60) 10*6/uL Hgb (13.0-17.0) g/dL Hct (39.6-50.0) % MPV (9.5-12.2) fL Immature Gran # (0.00-0.04) 10*3/uL Neutrophils # (1.80-7.70) 10*3/uL Lymphocytes # (0.90-5.00) 10*3/uL Eosinophils # (0.04-0.35) 10*3/uL PT (10.0-12.5) sec INR (<1.2) Sodium (137-145) mmol/L Carbon Dioxide (22-30) mmol/L BUN (9-20) mg/dL Creatinine (0.66-1.25) mg/dL Glucose (74-99) mg/dL ALT (4-49) U/L Total Protein (6.3-8.2) g/dL Albumin (3.5-5.0) g/dL Urine Protein 2+ H (Negative) Urine Glucose (UA) 4+ H (Negative) Urine Blood Trace H (Negative) Urine Bilirubin 1+ H (Negative) Ur Leukocyte Esterase Moderate H (Negative) Urine RBC 8 H (0-5) /hpf Urine WBC 42 H (0-5) /hpf Urine WBC Clumps Rare H (None) /hpf Urine Mucus Rare H (None) /hpf
[2024-10-29] MEDS: SODIUM CHLORIDE 0.9% 500 ML 500 ML IV ONE (15:25)
[2024-10-29 15:41] LABS: NT-Pro-B-Type Natriuretic Pept 5890.0 pg/mL
[2024-10-29 18:04] LABS: Glucose,Whole Blood 262 mg/dL (70-110)
[2024-10-29 19:06] LABS: Glucose,Whole Blood 249 mg/dL (70-110)
[2024-10-29] MEDS: INSULIN LISPRO (HumaLOG) 100 UNIT/ML 10 mL VL SQ SCH (19:34)
[2024-10-29] MEDS: IPRATROPIUM-ALBUTEROL 3 ML NEB INHALATION SCH (19:46)
[2024-10-29] MEDS: SYMBICORT 160-4.5 MCG INHALER INHALATION SCH (19:48)
[2024-10-29] MEDS: METOPROLOL TARTRATE 12.5 MG TAB PO SCH (20:35)
[2024-10-29 20:37] LABS: Glucose,Whole Blood 307 mg/dL (70-110)
[2024-10-29] MEDS: INSULIN GLARGINE (LANTUS) 100 UNIT/ML SYR SQ SCH (20:37)
[2024-10-29] MEDS: ATORVASTATIN 40 MG TAB PO SCH (20:48)
[2024-10-29] MEDS: FAMOTIDINE 20 MG TAB PO SCH (20:48)
[2024-10-29] MEDS: APIXABAN 5 MG TAB PO SCH (20:49)
[2024-10-29] MEDS: CEFEPIME 2 GM in SODIUM CHLORIDE 0.9% 100 ML IVPB SCH (20:49)
--- NOTE | 2024-10-29 22:31 | P.CONS ---
History of Present Illness - Reason for Consult Consult date: 10/29/24 Pneumonia Requesting physician: Eddie Nicole - Chief Complaint Weakness and fall x 1 day - History of Present Illness Patient is a 79-year-old male with a past medical history significant for COPD atrial fibrillation diabetes mellitus hypertension hyperlipidemia ost eoarthritis recent multiple admission to the hospital with pneumonia he did have a bronchoscopy and lavage on 10/21/2024 that was positive for stenotrophomonas multi folia sensitive to Levaquin and Bactrim DS and the patient was discharged home on Bactrim DS patient has not been brought back to the hospital after apparently the patient tried to get up to the bathroom and did have a fall patient complaining of feeling weak tired and no energy patient denies having any headache or high-grade fever at home however he did have a low-grade fever 100 F on arrival to the ER patient was tachycardic but not hypotensive mildly hypoxic currently on 3 L nasal cannula oxygen patient did have a white count of 16.09 BUN and creatinine mildly elevated troponin is elevated CRP is 20.3 urine has been positive stool for C. difficile was negative patient did have a chest x-ray that was positive for cardiomegaly pulmonary vascular congestion bilateral effusion no discrete consolidative changes infectious he was consulted concern for possible pneumonia because of his fever and elevated white count patient has been complaining of shortness of breath he also have a cough mild to moderate intensity no significant sputum production or hemoptysis patient did have some nausea but no vomiting no abdominal pain has been complaining of some diarrhea but no blood or mucus in the stool Review of Systems Positive point and negatives has been mentioned in the HPI, complete review of systems was performed and all other systems are negative Past Medical History Past Medical History: Atrial Fibrillation, Chest Pain / Angina, COPD, Diabetes M ellitus, Hyperlipidemia, Hypertension, Osteoarthritis (OA), Pneumonia, Prostate Disorder, Supraventricular Tachycardia (SVT) Additional Past Medical History / Comment(s): Chronic hypoxic respiratory failure with home oxygen pt mostly just wears at night, past acute hypoxic r espiratory failure requiring bipap, newly diagnosed , BPH, UTI Last Myocardial Infarction Date:: 2008 History of Any Multi-Drug Resistant Organisms: None Reported Past Surgical History: Back Surgery, Heart Catheterization, Hernia Repair, Joint Replacement, Orthopedic Surgery Additional Past Surgical History / Comment(s): microlaryngoscopy w/ lt vocal cord bx-neg, bronch-lung bx-neg, lt inguinal hernia, low back surgery, bilateral total hip arthroplasties, bilateral cataracts removed., colonoscopy, cataract surgery bilateral Past Anesthesia/Blood Transfusion Reactions: No Reported Reaction Past Psychological History: No Psychological Hx Reported Smoking Status: Former smoker Past Alcohol Use History: None Reported Past Drug Use History: None Reported - Past Family History Mother Family Medical History: COPD, Diabetes Mellitus Father Family Medical History: COPD, Diabetes Mellitus Brother(s) Family Medical History: Cancer Additional Family Medical History / Comment(s): leukemia Medications and Allergies Home Medications Medication Instructions Recorded Confirmed Type Budesonide-Formot 160-4.5 Mcg 2 puff INHALATION RT-BID 07/17/16 10/29/24 History [Symbicort 160-4.5 Mcg Inhaler] Famotidine [Pepcid] 20 mg PO BID 11/26/23 10/29/24 History Zolpidem [Ambien] 5 mg PO HS PRN 11/26/23 10/29/24 History Apixaban [Eliquis] 5 mg PO BID 04/02/24 10/29/24 History Empagliflozin [Jardiance] 10 mg PO DAILY 04/02/24 10/29/24 History Amiodarone [Cordarone] 100 mg PO DAILY 09/22/24 10/29/24 History Atorvastatin [Lipitor] 40 mg PO HS 09/22/24 10/29/24 History Ferrous Sulfate [Iron (65 MG 325 mg PO DAILY 09/22/24 10/29/24 History Elemental)] Insulin Aspart [NovoLOG Flexpen] See Protocol SQ AC-TID 09/22/24 10/29/24 History Metoprolol Tartrate [Lopressor] 12.5 mg PO BID 09/22/24 10/29/24 History Tamsulosin [Flomax] 0.4 mg PO DAILY 09/22/24 10/29/24 History Vitamin B(Unknown) 1 tab PO DAILY 09/22/24 10/29/24 History predniSONE 15 mg PO Q2D 09/22/24 10/29/24 History Ipratropium-Albuterol Nebulize 3 ml INHALATION RT-Q2H PRN each 09/27/24 10/29/24 Rx [Duoneb 0.5 mg-3 mg/3 ml Soln] Ipratropium-Albuterol Nebulize 3 ml INHALATION RT-QID 30 Days 09/27/24 10/29/24 Rx [Duoneb 0.5 mg-3 mg/3 ml Soln] #100 each Azithromycin [Zithromax] 250 mg PO MOWEFR 10/16/24 10/29/24 History Insulin Glargine,Hum.rec.anlog 15 units SQ HS 10/16/24 10/29/24 History [Lantus Solostar Pen] predniSONE [Deltasone] 20 mg PO Q2D 10/16/24 10/29/24 History Furosemide [Lasix] 40 mg PO DAILY 30 Days #30 tab 10/26/24 10/29/24 Rx Sulfamethox-Tmp 800-160Mg [Bactrim 1 tab PO BID 10/29/24 10/29/24 History DS 800-160 mg] Allergies Allergy/AdvReac Type Severity Reaction Status Date / Time Penicillins Allergy Rash/Hives Verified 10/16/24 14:17 Physical Exam Vitals: Vital Signs Temp Pulse Pulse Resp BP Pulse Ox 10/29/24 15:08 98.0 F 71 18 95/63 94 L 10/29/24 13:28 97.9 F 80 18 86/54 99 10/29/24 12:57 88 18 115/85 93 L 10/29/24 10:41 101 H 18 81/49 99 10/29/24 10:02 111 H 10/29/24 09:58 100.0 F H 112 H 18 83/56 97 Intake and Output 10/29/24 10/29/24 10/29/24 06:59 14:59 22:59 Other: Weight 83.6 kg GENERAL DESCRIPTION: Elderly male lying in bed, no distress. No tachypnea or accessory muscle of respiration use. HEENT: Shows Pallor , no scleral icterus. Oral mucous membrane is dry. NECK: Trachea central, no thyromegaly. LUNGS: Unlabored breathing. Coarse breath sounds bilaterally HEART: S1, S2, regular rate and rhythm. No loud murmur ABDOMEN: Soft, no tenderness , EXTREMITIES: No edema of feet. SKIN: No rash, no masses palpable. NEUROLOGICAL: The patient is awake, alert, oriented x3, mood and affect normal. Results CBC & Chem 7: 10/30/24 07:29 10/30/24 07:29 Labs: Abnormal Lab Results - Last 24 Hours (Table) 10/29/24 10/29/24 10/29/24 Range/Units 10:17 10:17 10:17 WBC 16.09 H (4.50-10.00) 10*3/uL RBC 3.63 L (4.40-5.60) 10*6/uL Hgb 10.8 L (13.0-17.0) g/dL Hct 33.3 L (39.6-50.0) % MPV 12.5 H (9.5-12.2) fL Immature Gran # 0.21 H (0.00-0.04) 10*3/uL Neutrophils # 14.91 H (1.80-7.70) 10*3/uL Lymphocytes # 0.23 L (0.90-5.00) 10*3/uL Eosinophils # 0.01 L (0.04-0.35) 10*3/uL PT 12.9 H (10.0-12.5) sec INR 1.2 H (<1.2) Sodium 133 L (137-145) mmol/L Carbon Dioxide 21 L (22-30) mmol/L BUN 49 H (9-20) mg/dL Creatinine 1.71 H (0.66-1.25) mg/dL Glucose 232 H (74-99) mg/dL ALT 51 H (4-49) U/L Troponin I (0.000-0.034) ng/mL C-Reactive Protein (<1.0) mg/dL Total Protein 5.0 L (6.3-8.2) g/dL Albumin 2.8 L (3.5-5.0) g/dL Urine Protein (Negative) Urine Glucose (UA) (Negative) Urine Blood (Negative) Urine Bilirubin (Negative) Ur Leukocyte Esterase (Negative) Urine RBC (0-5) /hpf Urine WBC (0-5) /hpf Urine WBC Clumps (None) /hpf Urine Mucus (None) /hpf 10/29/24 10/29/24 10/29/24 Range/Units 12:00 14:54 14:54 WBC (4.50-10.00) 10*3/uL RBC (4.40-5.60) 10*6/uL Hgb (13.0-17.0) g/dL Hct (39.6-50.0) % MPV (9.5-12.2) fL Immature Gran # (0.00-0.04) 10*3/uL Neutrophils # (1.80-7.70) 10*3/uL Lymphocytes # (0.90-5.00) 10*3/uL Eosinophils # (0.04-0.35) 10*3/uL PT (10.0-12.5) sec INR (<1.2) Sodium (137-145) mmol/L Carbon Dioxide (22-30) mmol/L BUN (9-20) mg/dL Creatinine (0.66-1.25) mg/dL Glucose (74-99) mg/dL ALT (4-49) U/L Troponin I 0.391 H* (0.000-0.034) ng/mL C-Reactive Protein 20.3 H (<1.0) mg/dL Total Protein (6.3-8.2) g/dL Albumin (3.5-5.0) g/dL Urine Protein 2+ H (Negative) Urine Glucose (UA) 4+ H (Negative) Urine Blood Trace H (Negative) Urine Bilirubin 1+ H (Negative) Ur Leukocyte Esterase Moderate H (Negative) Urine RBC 8 H (0-5) /hpf Urine WBC 42 H (0-5) /hpf Urine WBC Clumps Rare H (None) /hpf Urine Mucus Rare H (None) /hpf Assessment and Plan (1) Leukocytosis Current Visit: Yes Status: Acute Code(s): D72.829 - ELEVATED WHITE BLOOD CELL COUNT, UNSPECIFIED SNOMED Code(s): 255294822 (2) Fever Current Visit: No Status: Acute Code(s): R50.9 - FEVER, UNSPECIFIED SNOMED Code(s): 264151504 (3) Penicillin allergy Current Visit: No Status: Acute Code(s): Z88.0 - ALLERGY STATUS TO PENICILLIN SNOMED Code(s): 23779877 (4) Renal insufficiency Current Visit: No Status: Acute Code(s): N28.9 - DISORDER OF KIDNEY AND URETER, UNSPECIFIED SNOMED Code(s): 111251638 Plan: 1patient presented hospital with weakness and did have a fall in this patient who was recently discharged from hospital after being treated for COPD his admission and there was concern for pneumonia status post bronchoscopy lavage was positive for stenotrophomonas now did have low-grade fever elevated white count chest x-ray has been mostly pulmonary vascular congestion further than consolidation has been complaining of some diarrhea however stool for C. difficile is negative urine is mildly positive and did have symptoms of urinary frequency question of UTI. 2we will check inflammatory markers. 3patient may benefit from a CT of the chest to make sure no evidence of any consolidation. 4obtain sputum for Gram stain and culture. 5May continue empiric cefepime while waiting for the workup to be completed. We will follow on clinical condition and cultures to further adjust medication if needed Thank you for this consultation we will follow the patient along with you Dictation was produced using [employer] dictation software. please excuse any grammatical, word or spelling errors. Time with Patient: Greater than 30
[2024-10-30 05:58] LABS: Glucose,Whole Blood 117 mg/dL (70-110)
--- NOTE | 2024-10-30 07:49 | XR ---
EXAMINATION TYPE: XR chest 1V portable DATE OF EXAM: 10/30/2024 5:26 AM COMPARISON: Chest radiographs from 10/29/2024 CLINICAL INDICATION: Male, 79 years old with history of pneumonia; [facility] TECHNIQUE: XR chest 1V portable Frontal and lateral views of the chest. FINDINGS: Lungs/Pleura: Right lower lung airspace opacities may be more prominent today. No evidence of focal c onsolidation or pneumothorax. Blunting of the costophrenic angles is present. Pulmonary vascularity: Unremarkable. Heart/mediastinum: Cardiomediastinal silhouette is enlarged. Musculoskeletal: Degenerative changes of the shoulder joints. IMPRESSION: 1. Right lower lung airspace opacities not significantly changed 2. Cardiomegaly, pulmonary vascular congestion and right pleural effusions. Correlate with BNP for c ongestive heart failure. [facility], , 10/30/2024 7:46 AM
[2024-10-30] MEDS: HEPARIN SOD,PORK IN 0.45% NACL 25,000 UNIT in 0.45% NACL 1 250ML.BAG IV SCH (08:09)
[2024-10-30] MEDS: HEPARIN SODIUM 1,000 UN/ML (10ML VL) IV ONE (08:10)
[2024-10-30] MEDS: FUROSEMIDE 10 MG/ML 4 ML VIAL IV STA (08:12)
[2024-10-30] MEDS: AZITHROMYCIN 500 MG in SODIUM CHLORIDE 0.9% 250 ML IVPB SCH (08:25)
[2024-10-30 08:30] LABS: Basophils # (A) 0.01 10*3/uL (0.00-0.10); Basophils % (A) 0.1 %; Eosinophils # (A) 0.03 10*3/uL (0.04-0.35); Eosinophils % (A) 0.3 %; HCT 29.0 % (39.6-50.0); Lymphocytes # (A) 0.41 10*3/uL (0.90-5.00); Lymphocytes % (A) 3.7 %; MCH 29.3 pg (27.0-32.0); MCHC 31.7 g/dL (32.0-37.0); MCV 92.4 fL (80.0-97.0); Monocytes # (A) 0.44 10*3/uL (0.20-1.00); Monocytes % (A) 3.9 %; Neutrophils # (A) 10.24 10*3/uL (1.80-7.70); Neutrophils % (A) 91.2 %; Platelet Count 148 10*3/uL (140-440); RBC 3.14 10*6/uL (4.40-5.60); RDW 16.5 % (11.5-14.5); WBC 11.22 10*3/uL (4.50-10.00)
[2024-10-30 08:32] LABS: HGB 9.2 g/dL (13.0-17.0)
[2024-10-30] MEDS: AMIODARONE 100 MG TAB PO SCH (08:34)
[2024-10-30] MEDS: DAPAGLIFLOZIN PROPANEDIOL 5 MG TABLET PO SCH (08:35)
[2024-10-30] MEDS: TAMSULOSIN 0.4 MG CAP.ER.24H PO SCH (08:35)
[2024-10-30] MEDS: ASPIRIN 81 MG PO SCH (08:35)
[2024-10-30] MEDS: FERROUS SULFATE 325 MG TAB PO SCH (08:35)
[2024-10-30 08:41] LABS: INR 1.2 (<1.2); Partial Thromboplastin Time 29.0 sec (22.0-30.0); Prothrombin Time 12.6 sec (10.0-12.5)
[2024-10-30 08:45] LABS: ALT 49 U/L (4-49); AST 24 U/L (17-59); African American GFR (CKD) 59 (>60 ml/min/1.73 sqM); Albumin 2.4 g/dL (3.5-5.0); Alkaline Phosphatase 66 U/L (38-126); Anion Gap 7 mmol/L; Blood Urea Nitrogen 47 mg/dL (9-20); Calcium 8.3 mg/dL (8.4-10.2); Carbon Dioxide 22 mmol/L (22-30); Chloride 109 mmol/L (98-107); Glucose 89 mg/dL (74-99); Non-African American GFR(CKD) 51 (>60 ml/min/1.73 sqM); Potassium 4.3 mmol/L (3.5-5.1); Sodium 138 mmol/L (137-145); Total Protein 4.6 g/dL (6.3-8.2)
--- NOTE | 2024-10-30 09:49 | P.CRDCN ---
History of Present Illness Consult date: 10/30/24 Reason for Consult (text): Elevated troponins History of present illness: This is a 79-year-old male patient of Dr. Hansen with past medical history of paroxysmal atrial fibrillation on Eliquis, moderate to severe aortic stenosis, diabetes mellitus type 2, severe COPD, chronic hypoxic respiratory failure on home O2. We have been asked to evaluate the patient for elevated troponin. Patient had a recent hospitalization from . Patient was seen by cardiology at that time but patient presented with severe sepsis with pneumonia, acute on chronic hypoxic respiratory failure, COPD. On this occasion, patient presented to the hospital and had a fall on the floor around 2 AM and laid on the floor for 7 hours until his daughter came and found him. He states he did have a fever yesterday and his blood pressure was low yesterday. He denies any fever or chills now. He states he has a little cough. He does lower extremity edema. He complains of fatigue. Blood pressure 115/62, heart rate 60s and 70s, pulse ox 98% on 3 L nasal cannula. Patient is seen today in the emergency center waiting for a bed on the cardiac stepdown unit. Patient has been started on IV antibiotics, home medications and is status. -EKG: Sinus with nonspecific changes, mild ST elevation but does not meet criteria for acute ST [facility] -Chest x-ray: No consolidation. Cardiomegaly. Pulmonary vascular congestion and bilateral pleural effusions. #2 right lower lobe airspace opacities. Cardiomegaly, pulmonary vascular congestion or right pleural effusions. -Laboratory studies: WBC 11.2, hemoglobin 9.2. Sodium 133, BUN 49, initial creatinine 1.71 and repeat 1.34. Troponins 0.391 and 0.124. C-reactive protein 20.3. proBNP 5890. C. difficile toxin negative. Legionella antigen negative. CK 68. -Home cardiac medications: Amiodarone 100 mg daily, Eliquis 5 mg twice daily, atorvastatin 40 mg at bedtime, Jardiance 10 mg daily, Lasix 40 mg daily, Lopressor 12.5 mg twice daily, also on ferrous sulfate. -Echocardiogram performed 10/16/2024 revealed EF 55 to 60%, moderate concentric LVH, normal RV size and systolic function, mild left atrial dilatation. Severe aortic stenosis with mean gradient of 40. Tricuspid regurgitation. RVSP 32 mmHg. Review Of Systems: At the time of my exam: CONSTITUTIONAL: Denies fever or chills. HEENT: Denies blurred vision, vision changes, or eye pain. Denies hemoptysis CARDIOVASCULAR: Denies chest pain. Denies orthopnea. Denies PND. Denies palpitations RESPIRATORY: Denies shortness of breath. GASTROINTESTINAL: Denies abdominal pain. Denies nausea or vomiting. HEMATOLOGIC: Denies bleeding disorders. GENITOURINARY: Denies any blood in urine. SKIN: Denies puritis. Denies rash. Physical examination: Gen: This is 79-year-old male in no acute distress VS: reviewed HEENT: Head is atraumatic, normocephalic. Pupils equal, round. Sclerae is anicteric. NECK: Supple. No JVD. LUNGS: Diminished breath sounds. No intercostal retractions. HEART: Regular rate and rhythm. Systolic murmur. ABDOMEN: Soft No tenderness. EXTREMITIES: No pedal edema. No calf tenderness. NEUROLOGICAL: Patient is awake, alert and oriented x3. Assessment: Fall at home, rhabdomyolysis ruled out Acute kidney injury secondary to hypotension Possible sepsis NSTEMI possibly due to fall and acute kidney injury with known underlying CAD, cannot rule out acute event Paroxysmal atrial fibrillation on Eliquis at home Severe aortic stenosis Anemia Diabetes mellitus type 2 Severe COPD Chronic hypoxic respiratory failure on home O2 Plan: Resume patient's home cardiac medications Start patient on aspirin 81 mg daily Discontinue Eliquis and start patient on heparin drip 1 dose of IV Lasix 40 mg now Obtain procalcitonin Obtain repeat troponins Obtain limited 2-D echocardiogram Will consider cardiac catheterization in the next few days after kidney function has improved. Regarding severe , patient will need evaluation for TAVR which will include cardiac catheterization that will hopefully be performed during this hosp italization. Further recommendations to follow based upon clinical course Thank you kindly for this consultation. Nurse practitioner note has been reviewed, I agree with documented findings and plan of care. Patient was seen and examined. Past Medical History Past Medical History: Atrial Fibrillation, Chest Pain / Angina, COPD, Diabetes Mellitus, Hyperlipidemia, Hypertension, Osteoarthritis (OA), Pneumonia, Prostate Disorder, Supraventricular Tachycardia (SVT) Additional Past Medical History / Comment(s): Chronic hypoxic respiratory failure with home oxygen pt mostly just wears at night, past acute hypoxic respiratory failure requiring bipap, newly diagnosed , BPH, UTI Last Myocardial Infarction Date:: 2008 History of Any Multi-Drug Resistant Organisms: None Reported Past Surgical History: Back Surgery, Heart Catheterization, Hernia Repair, Joint Replacement, Orthopedic Surgery Additional Past Surgical History / Comment(s): microlaryngoscopy w/ lt vocal cord bx-neg, bronch-lung bx-neg, lt inguinal hernia, low back surgery, bilateral total hip arthroplasties, bilateral cataracts removed., colonoscopy, cataract surgery bilateral Past Anesthesia/Blood Transfusion Reactions: No Reported Reaction Past Psychological History: No Psychological Hx Reported Smoking Status: Former smoker Past Alcohol Use History: None Reported Past Drug Use History: None Reported - Past Family History Mother Family Medical History: COPD, Diabetes Mellitus Father Family Medical History: COPD, Diabetes Mellitus Brother(s) Family Medical History: Cancer Additional Family Medical History / Comment(s): leukemia Medications and Allergies Home Medications Medication Instructions Recorded Confirmed Type Budesonide-Formot 160-4.5 Mcg 2 puff INHALATION RT-BID 07/17/16 10/29/24 History [Symbicort 160-4.5 Mcg Inhaler] Famotidine [Pepcid] 20 mg PO BID 11/26/23 10/29/24 History Zolpidem [Ambien] 5 mg PO HS PRN 11/26/23 10/29/24 History Apixaban [Eliquis] 5 mg PO BID 04/02/24 10/29/24 History Empagliflozin [Jardiance] 10 mg PO DAILY 04/02/24 10/29/24 History Amiodarone [Cordarone] 100 mg PO DAILY 09/22/24 10/29/24 History Atorvastatin [Lipitor] 40 mg PO HS 09/22/24 10/29/24 History Ferrous Sulfate [Iron (65 MG 325 mg PO DAILY 09/22/24 10/29/24 History Elemental)] Insulin Aspart [NovoLOG Flexpen] See Protocol SQ AC-TID 09/22/24 10/29/24 History Metoprolol Tartrate [Lopressor] 12.5 mg PO BID 09/22/24 10/29/24 History Tamsulosin [Flomax] 0.4 mg PO DAILY 09/22/24 10/29/24 History Vitamin B(Unknown) 1 tab PO DAILY 09/22/24 10/29/24 History predniSONE 15 mg PO Q2D 09/22/24 10/29/24 History Ipratropium-Albuterol Nebulize 3 ml INHALATION RT-Q2H PRN each 09/27/24 10/29/24 Rx [Duoneb 0.5 mg-3 mg/3 ml Soln] Ipratropium-Albuterol Nebulize 3 ml INHALATION RT-QID 30 Days 09/27/24 10/29/24 Rx [Duoneb 0.5 mg-3 mg/3 ml Soln] #100 each Azithromycin [Zithromax] 250 mg PO MOWEFR 10/16/24 10/29/24 History Insulin Glargine,Hum.rec.anlog 15 units SQ HS 10/16/24 10/29/24 History [Lantus Solostar Pen] predniSONE [Deltasone] 20 mg PO Q2D 10/16/24 10/29/24 History Furosemide [Lasix] 40 mg PO DAILY 30 Days #30 tab 10/26/24 10/29/24 Rx Sulfamethox-Tmp 800-160Mg [Bactrim 1 tab PO BID 10/29/24 10/29/24 History DS 800-160 mg] Allergies Allergy/AdvReac Type Severity Reaction Status Date / Time Penicillins Allergy Rash/Hives Verified 10/16/24 14:17 Physical Exam Vitals: Vital Signs Temp Pulse Pulse Resp BP BP Pulse Ox 10/30/24 04:00 63 20 115/62 98 10/30/24 00:00 97.6 F 64 22 99/58 99 10/29/24 20:36 93/47 10/29/24 19:57 66 10/29/24 19:51 62 10/29/24 19:45 81/39 10/29/24 15:08 98.0 F 71 18 95/63 94 L 10/29/24 13:28 97.9 F 80 18 86/54 99 10/29/24 12:57 88 18 115/85 93 L 10/29/24 10:41 101 H 18 81/49 99 10/29/24 10:02 111 H 10/29/24 09:58 100.0 F H 112 H 18 83/56 97 Intake and Output 10/29/24 10/29/24 10/30/24 14:59 22:59 06:59 Output Total 400 Balance -400 Output: Urine 400 Other: Voiding Method Urinal Weight 83.6 kg 83.6 kg Results 10/30/24 07:29 10/30/24 07:29 Cardiac Enzymes 10/29/24 10/29/24 Range/Units 10:17 14:54 AST 27 (17-59) U/L Troponin I 0.391 H* (0.000-0.034) ng/mL Coagulation 10/29/24 Range/Units 10:17 PT 12.9 H (10.0-12.5) sec APTT 25.5 (22.0-30.0) sec CBC 10/29/24 Range/Units 10:17 WBC 16.09 H (4.50-10.00) 10*3/uL RBC 3.63 L (4.40-5.60) 10*6/uL Hgb 10.8 L (13.0-17.0) g/dL Hct 33.3 L (39.6-50.0) % Plt Count 156 (140-440) 10*3/uL Comprehensive Metabolic Panel 10/29/24 Range/Units 10:17 Sodium 133 L (137-145) mmol/L Potassium 4.9 (3.5-5.1) mmol/L Chloride 103 (98-107) mmol/L Carbon Dioxide 21 L (22-30) mmol/L BUN 49 H (9-20) mg/dL Creatinine 1.71 H (0.66-1.25) mg/dL Glucose 232 H (74-99) mg/dL Calcium 9.0 (8.4-10.2) mg/dL AST 27 (17-59) U/L ALT 51 H (4-49) U/L Alkaline Phosphatase 86 (38-126) U/L Total Protein 5.0 L (6.3-8.2) g/dL Albumin 2.8 L (3.5-5.0) g/dL Current Medications Generic Name Dose Route Start Last Admin Trade Name Freq PRN Reason Stop Dose Admin Albuterol/Ipratropium 3 ml 10/29/24 16:00 10/29/24 19:48 Ipratropium-Albuterol 3 Ml Neb INHALATION 3 ml RT-QID RONALD Administration Albuterol/Ipratropium 3 ml 10/29/24 14:58 Ipratropium-Albuterol 3 Ml Neb INHALATION RT-Q2H PRN Shortness Of Breath Or Wheezing Amiodarone HCl 100 mg 10/30/24 09:00 Amiodarone 100 Mg Tab PO DAILY RONALD Apixaban 5 mg 10/29/24 21:00 10/29/24 20:49 Apixaban 5 Mg Tab PO 5 mg BID RONALD Administration Protocol Atorvastatin Calcium 40 mg 10/29/24 21:00 10/29/24 20:48 Atorvastatin 40 Mg Tab PO 40 mg HS RONALD Administration Budesonide/Formoterol Fumarate 2 puff 10/29/24 20:00 10/29/24 19:48 Symbicort 160-4.5 Mcg Inhaler INHALATION 2 puff RT-BID RONALD Administration Dapagliflozin 5 mg 10/30/24 09:00 Dapagliflozin Propanediol 5 Mg Tablet PO DAILY RONALD Dextrose/Water 25 ml 10/29/24 15:00 Dextrose 50% Syringe 50 Ml IVP PER PROTOCOL PRN Hypoglycemia Protocol Dextrose/Water 50 ml 10/29/24 15:00 Dextrose 50% Syringe 50 Ml IVP PER PROTOCOL PRN Hypoglycemia Protocol Famotidine 20 mg 10/29/24 21:00 10/29/24 20:48 Famotidine 20 Mg Tab PO 20 mg HS RONALD Administration Ferrous Sulfate 325 mg 10/30/24 09:00 Ferrous Sulfate 325 Mg Tab PO DAILY [facility] Cefepime HCl 2 gm/ Sodium 100 mls @ 25 mls/hr 10/29/24 21:00 10/29/24 20:49 Chloride IVPB 25 mls/hr Q12HR RONALD Administration Protocol Azithromycin 500 mg/ Sodium 250 mls @ 250 mls/hr 10/30/24 09:00 Chloride IVPB 11/01/24 08:59 DAILY [facility] Protocol Insulin Glargine 15 unit 10/29/24 21:00 10/29/24 20:49 Insulin Glargine (Lantus) 100 Unit/Ml Syr SQ 15 unit HS [facility] Administration Insulin Human Lispro 0 unit 10/29/24 17:30 10/30/24 05:58 Insulin Lispro (Humalog) 100 Unit/Ml 10 Ml Vl SQ Not Given ACHS [facility] Protocol Metoprolol Tartrate 12.5 mg 10/29/24 21:00 10/29/24 20:35 Metoprolol Tartrate 12.5 Mg Tab PO Not Given BID [facility] Miscellaneous Information 1 each 10/29/24 12:39 Pneumonia Protocol Utilized 1 Each Misc PO ONCE PRN Per Protocol Tamsulosin HCl 0.4 mg 10/30/24 09:00 Tamsulosin 0.4 Mg Cap.Er.24h PO DAILY RONALD Zolpidem Tartrate 5 mg 10/29/24 14:58 Zolpidem 5 Mg Tab PO HS PRN Insomnia Intake and Output 10/29/24 10/29/24 10/30/24 14:59 22:59 06:59 Output Total 400 Balance -400 Output: Urine 400 Other: Voiding Method Urinal Weight 83.6 kg 83.6 kg Patient Weight 10/30/24 06:59 Weight 83.6 kg 10/29/24 10:17 10/29/24 10:17
--- NOTE | 2024-10-30 11:40 | P.CNPUL ---
History of Present Illness Consult date: 10/30/24 Requesting physician: Beth Reed Reason for consult: COPD Chief complaint: Fall at home with extended downtime History of present illness: This is a 79-year-old male patient with a known history of chronic obstructive pulmonary disease, oxygen dependent, paroxysmal atrial fibrillation anticoag ulated with Eliquis, severe aortic stenosis, diabetes mellitus, with recent frequent admissions. He was discharged on October 26, 2024. He was brought back to the hospital yesterday October 29, 2024 after sustaining a fall at home at approximately 2:00 in the morning. He is unsure if he tripped and fell or if he passed out. He laid on the ground for 6 hours until a neighbor came by to help him up. He was too weak to stand and EMS was called. He denied any chest pain. No worsening shortness of breath, cough or congestion. No abdominal pain, nausea vomiting or diarrhea. EKG revealed sinus tachycardia. Chest x-ray revealed no discrete consolidative changes. There is cardiomegaly and pulmonary vascular congestion with bilateral pleural effusions. White count 11.2. Hemoglobin 9.2. Platelets 148. Sodium 138. Potassium 4.3. Bicarb 22. BUN 47. Creatinine 1.34. Troponin 0.124, 0.158. proBNP 5890. He is seen today in consultation in the emergency department. He is currently sitting up on a stretcher. Awake and alert oriented x 3. Unclear about what happened to him prior to being on the kitchen floor. He is currently maintaining good O2 saturation in the upper 90s on 3 L/min per nasal cannula. He is afebrile. Hemodynamically stable. Currently in sinus rhythm. Review of Systems REVIEW OF SYSTEMS: CONSTITUTIONAL: Positive for fall/syncope. Denies any recent significant weight loss or weight gain. EYES: Denies change in vision. EARS, NOSE, MOUTH, THROAT: Denies headaches, denies sore throat. CARDIOVASCULAR: Denies chest pain, palpitations unclear if a syncopal episode. RESPIRATORY: Denies shortness of breath, cough, congestion or hemoptysis. GASTROINTESTINAL: Denies change in appetite, denies abdominal pain GENITOURINARY: Denies hematuria, denies infections. MUSKULOSKELETAL: Denies pain, denies swelling. INTEGUMENTARY: Denies rash, denies eczema. NEUROLOGICAL: Denies recent memory loss, no recent seizure activity. PSYCHIATRIC: Denies anxiety, denies depression. HEMATOLOGIC/LYMPHATIC: Denies anemia, denies enlarged lymph nodes. Past Medical History Past Medical History: Atrial Fibrillation, Chest Pain / Angina, COPD, Diabetes Mellitus, Hyperlipidemia, Hypertension, Osteoarthritis (OA), Pneumonia, Prostate Disorder, Supraventricular Tachycardia (SVT) Additional Past Medical History / Comment(s): Chronic hypoxic respiratory failure with home oxygen pt mostly just wears at night, past acute hypoxic respiratory failure requiring bipap, newly diagnosed , BPH, UTI Last Myocardial Infarction Date:: 2008 History of Any Multi-Drug Resistant Organisms: None Reported Past Surgical History: Back Surgery, Heart Catheterization, Hernia Repair, Joint Replacement, Orthopedic Surgery Additional Past Surgical History / Comment(s): microlaryngoscopy w/ lt vocal cord bx-neg, bronch-lung bx-neg, lt inguinal hernia, low back surgery, bilateral total hip arthroplasties, bilateral cataracts removed., colonoscopy, cataract surgery bilateral Past Anesthesia/Blood Transfusion Reactions: No Reported Reaction Past Psychological History: No Psychological Hx Reported Smoking Status: Former smoker Past Alcohol Use History: None Reported Past Drug Use History: None Reported - Past Family History Mother Family Medical History: COPD, Diabetes Mellitus Father Family Medical History: COPD, Diabetes Mellitus Brother(s) Family Medical History: Cancer Additional Family Medical History / Comment(s): leukemia Medications and Allergies Home Medications Medication Instructions Recorded Confirmed Type Budesonide-Formot 160-4.5 Mcg 2 puff INHALATION RT-BID 07/17/16 10/29/24 History [Symbicort 160-4.5 Mcg Inhaler] Famotidine [Pepcid] 20 mg PO BID 11/26/23 10/29/24 History Zolpidem [Ambien] 5 mg PO HS PRN 11/26/23 10/29/24 History Apixaban [Eliquis] 5 mg PO BID 04/02/24 10/29/24 History Empagliflozin [Jardiance] 10 mg PO DAILY 04/02/24 10/29/24 History Amiodarone [Cordarone] 100 mg PO DAILY 09/22/24 10/29/24 History Atorvastatin [Lipitor] 40 mg PO HS 09/22/24 10/29/24 History Ferrous Sulfate [Iron (65 MG 325 mg PO DAILY 09/22/24 10/29/24 History Elemental)] Insulin Aspart [NovoLOG Flexpen] See Protocol SQ AC-TID 09/22/24 10/29/24 History Metoprolol Tartrate [Lopressor] 12.5 mg PO BID 09/22/24 10/29/24 History Tamsulosin [Flomax] 0.4 mg PO DAILY 09/22/24 10/29/24 History Vitamin B(Unknown) 1 tab PO DAILY 09/22/24 10/29/24 History predniSONE 15 mg PO Q2D 09/22/24 10/29/24 History Ipratropium-Albuterol Nebulize 3 ml INHALATION RT-Q2H PRN each 09/27/24 10/29/24 Rx [Duoneb 0.5 mg-3 mg/3 ml Soln] Ipratropium-Albuterol Nebulize 3 ml INHALATION RT-QID 30 Days 09/27/24 10/29/24 Rx [Duoneb 0.5 mg-3 mg/3 ml Soln] #100 each Azithromycin [Zithromax] 250 mg PO MOWEFR 10/16/24 10/29/24 History Insulin Glargine,Hum.rec.anlog 15 units SQ HS 10/16/24 10/29/24 History [Lantus Solostar Pen] predniSONE [Deltasone] 20 mg PO Q2D 10/16/24 10/29/24 History Furosemide [Lasix] 40 mg PO DAILY 30 Days #30 tab 10/26/24 10/29/24 Rx Sulfamethox-Tmp 800-160Mg [Bactrim 1 tab PO BID 10/29/24 10/29/24 History DS 800-160 mg] Allergies Allergy/AdvReac Type Severity Reaction Status Date / Time Penicillins Allergy Rash/Hives Verified 10/16/24 14:17 Physical Exam Vitals: Vital Signs Temp Pulse Pulse Resp BP BP Pulse Ox 10/30/24 08:27 76 10/30/24 08:17 75 10/30/24 04:00 63 20 115/62 98 10/30/24 00:00 97.6 F 64 22 99/58 99 10/29/24 20:36 93/47 10/29/24 19:57 66 10/29/24 19:51 62 10/29/24 19:45 81/39 10/29/24 15:08 98.0 F 71 18 95/63 94 L 07/04/25 13:28 97.9 F 80 18 86/54 99 10/29/24 12:57 88 18 115/85 93 L Intake and Output 10/29/24 10/30/24 10/30/24 22:59 06:59 14:59 Output Total 400 Balance -400 Output: Urine 400 Other: Voiding Method Urinal Weight 83.6 kg GENERAL EXAM: Alert, pleasant 79-year-old male, obese, on 3 L nasal cannula, comfortable in no apparent distress. HEAD: Normocephalic. EYES: Normal reaction of pupils, equal size. NOSE: Clear with pink turbinates. THROAT: No erythema or exudates. NECK: No masses, no JVD. CHEST: No chest wall deformity. LUNGS: Equal air entry with few scattered rhonchi. CVS: S1 and S2 normal with an audible murmur, regular rhythm. ABDOMEN: No hepatosplenomegaly, normal bowel sounds, no guarding or rigidity. SPINE: No scoliosis or deformity SKIN: No rashes CENTRAL NERVOUS SYSTEM: No focal deficits, tone is normal in all 4 extremities. EXTREMITIES: There is 1+ peripheral edema. No clubbing, no cyanosis. Peripheral pulses are intact. Results - Laboratory Findings CBC and BMP: 10/30/24 07:29 10/30/24 07:29 PT/INR, D-dimer PT 12.6 sec (10.0-12.5) H 10/30/24 07:29 INR 1.2 (<1.2) H 10/30/24 07:29 Abnormal lab findings: Abnormal Labs 10/29/24 10/29/24 10/29/24 10:17 10:17 10:17 WBC 16.09 H RBC 3.63 L Hgb 10.8 L Hct 33.3 L MCHC MPV 12.5 H Immature Gran # 0.21 H Neutrophils # 14.91 H Lymphocytes # 0.23 L Eosinophils # 0.01 L PT 12.9 H INR 1.2 H Sodium 133 L Chloride Carbon Dioxide 21 L BUN 49 H Creatinine 1.71 H Glucose 232 H POC Glucose (mg/dL) Calcium ALT 51 H Troponin I C-Reactive Protein Total Protein 5.0 L Albumin 2.8 L Urine Protein Urine Glucose (UA) Urine Blood Urine Bilirubin Ur Leukocyte Esterase Urine RBC Urine WBC Urine WBC Clumps Urine Mucus 10/29/24 10/29/24 10/29/24 12:00 14:54 14:54 WBC RBC Hgb Hct MCHC MPV Immature Gran # Neutrophils # Lymphocytes # Eosinophils # PT INR Sodium Chloride Carbon Dioxide BUN Creatinine Glucose POC Glucose (mg/dL) Calcium ALT Troponin I 0.391 H* C-Reactive Protein 20.3 H Total Protein Albumin Urine Protein 2+ H Urine Glucose (UA) 4+ H Urine Blood Trace H Urine Bilirubin 1+ H Ur Leukocyte Esterase Moderate H Urine RBC 8 H Urine WBC 42 H Urine WBC Clumps Rare H Urine Mucus Rare H 10/29/24 10/29/24 10/29/24 18:02 19:03 20:31 WBC RBC Hgb Hct MCHC MPV Immature Gran # Neutrophils # Lymphocytes # Eosinophils # PT INR Sodium Chloride Carbon Dioxide BUN Creatinine Glucose POC Glucose (mg/dL) 262 H 249 H 307 H Calcium ALT Troponin I C-Reactive Protein Total Protein Albumin Urine Protein Urine Glucose (UA) Urine Blood Urine Bilirubin Ur Leukocyte Esterase Urine RBC Urine WBC Urine WBC Clumps Urine Mucus 10/30/24 10/30/24 10/30/24 05:56 07:29 07:29 WBC RBC Hgb Hct MCHC MPV Immature Gran # Neutrophils # Lymphocytes # Eosinophils # PT INR Sodium Chloride 109 H Carbon Dioxide BUN 47 H Creatinine 1.34 H Glucose POC Glucose (mg/dL) 117 H Calcium 8.3 L ALT Troponin I 0.124 H* C-Reactive Protein Total Protein 4.6 L Albumin 2.4 L Urine Protein Urine Glucose (UA) Urine Blood Urine Bilirubin Ur Leukocyte Esterase Urine RBC Urine WBC Urine WBC Clumps Urine Mucus 10/30/24 10/30/24 10/30/24 07:29 07:29 10:22 WBC 11.22 H RBC 3.14 L Hgb 9.2 L D Hct 29.0 L MCHC 31.7 L MPV 12.5 H Immature Gran # 0.09 H Neutrophils # 10.24 H Lymphocytes # 0.41 L Eosinophils # 0.03 L PT 12.6 H INR 1.2 H Sodium Chloride Carbon Dioxide BUN Creatinine Glucose POC Glucose (mg/dL) Calcium ALT Troponin I 0.158 H* C-Reactive Protein Total Protein Albumin Urine Protein Urine Glucose (UA) Urine Blood Urine Bilirubin Ur Leukocyte Esterase Urine RBC Urine WBC Urine WBC Clumps Urine Mucus - Diagnostic Findings Chest x-ray: image reviewed Assessment and Plan Assessment: Fall with possible syncopal episode, on the floor for 6 hours Troponin leak Severe aortic stenosis with a mean gradient of 40 mmHg Acute kidney injury Anemia, stool for occult blood pending Acute on chronic diastolic congestive heart failure Acute on chronic hypoxic respiratory failure secondary to above and recently treated for community-acquired pneumonia Recent discharge on October 26, 2024 for acute pneumonia secondary to Stenotrophomonas maltophilia found on bronchial wash from 10/21/2024 Recent discharge in September 27, 2024 for pneumonia secondary to Serratia liquefaciens and [place] species Paroxysmal atrial fibrillation anticoagulated with Eliquis, currently in sinus rhythm Severe oxygen dependent, steroid-dependent chronic obstructive pulmonary disease with an FEV1 value of 30% of predicted Chronic hypoxic respiratory failure secondary to above maintained on home oxygen normally at 3 to 4 L Former heavy smoker quit approximately 10 months ago Hyperlipidemia Plan: The patient was seen and evaluated Imaging, labs and medications reviewed Currently stable on 3 L nasal cannula Initiated on a heparin drip Eliquis on hold May require TAVR procedure Cardiology considering cardiac catheterization Continue DuoNeb inhalations Continue Symbicort Continue cefepime and azithromycin Check a procalcitonin Resume home medications Titrate down the FiO2 as tolerated Increase his activity as tolerated We will continue to follow and make further recommendations based on his clinical status I have personally seen and examined the patient, performed the documentation and the assessment and plan as written. Number of minutes spent on the visit: 20 Dictation was produced using [employer] (FIG) dictation software. Please excuse any gramm atical, word or spelling errors. Time with Patient: Greater than 30
[2024-10-30 13:03] LABS: Glucose,Whole Blood 219 mg/dL (70-110)
--- NOTE | 2024-10-30 14:37 | P.PN ---
Subjective Progress Note Date: 10/30/24 79-year-old male patient with a known history of atrial fibrillation, anticoagulated with Eliquis diabetes mellitus, hyperlipidemia, oxygen dependent chronic obstructive pulmonary disease who presents the hospital because of shortness of breath. Patient was discharged last week after being admitted for shortness of breath, was being treated for pneumonia, had bronchoscopy with lavage done that was positive for stenotrophomonas and was discharged on Bactrim. Patient stated he was doing well for the first couple of days after his discharge but on Friday he had a fall, stated that his legs gave up and he ended up on the floor. Patient was laying on the floor for 6 hours, had to call neighbor for help. Patient did not had any loss of consciousness. Following the fall patient was complaining of back pain, daughter came to check on him. Daughter noted that the patient was getting more weak and had a hard time ambulating. Patient was complaining of shortness of breath. There was no complaint of chest pain. Patient denies any palpitation. There is no complaint of orthopnea or PND. Denies any nausea, vomiting abdominal pain. Patient denies any complaint of dizziness. There is no complaint of headache. Patient is complaining of abdominal distention and swelling of lower extremities. Because of shortness of breath and increasing weakness, patient brought the ER Initial lab work done in the ER showed WBC 16.09, hemoglobin 8, platelet count 156, sodium 133, potassium 4.9, BUN 14, creatinine 1.71, glucose 232, lactate 1.9 AST 27, ALT 51, UA done showed urine WBC 42, leukocyte esterase moderate amount, urine nitrate negative EKG done in the ER showed heart rate of 110, no ST segment elevation or depression seen, no T-wave inversions seen. Chest x-ray done in the ER showed no discrete consolidation changes, cardiomegaly, pulm congestion and bilateral pleural effusions Patient admitted to internal medicine service 10/30. Patient seen and examined. Patient was sitting upright in the chair. States breathing has improved. States he used peeing a lot. Still states he gets short of breath on exertion. labs reviewed showing WBC 11.22, hemoglobin 9.2, sodium 139 potassium 4.3, BUN 47, creatinine 1.34, troponin 0.124. Currently wray on 3 L of oxygen REVIEW OF SYSTEMS: CONSTITUTIONAL: No fever, no malaise,. CARDIOVASCULAR: No chest pain, no palpitations, no syncope. PULMONARY: Mentioned above GASTROINTESTINAL: No diarrhea, no nausea, no vomiting, no abdominal pain. NEUROLOGICAL: No headaches, no weakness, PHYSICAL EXAMINATION: GENERAL: The patient is alert and oriented x3, ill looking HEENT: Pupils are round and equally reacting to light. EOMI. No scleral icterus. No conjunctival pallor. Normocephalic, atraumatic. No pharyngeal erythema. No thyromegaly. CARDIOVASCULAR: S1 and S2 present. No murmurs, rubs, or gallops. PULMONARY: Diminished breath sounds at bases, crackles audible ABDOMEN: Soft, nontender, nondistended, normoactive bowel sounds. No palpable organomegaly. MUSCULOSKELETAL: No joint swelling or deformity. EXTREMITIES: No cyanosis, clubbing, 1+ pitting edema lower extremities NEUROLOGICAL: Gross neurological examination did not reveal any focal deficits. SKIN: No rashes. Assessment and plan Fall Generalized weakness Acute on chronic hypoxic respiratory failure Bacterial pneumonia, recent bronchial lavage showing stenotrophomonas History of COPD Moderate to severe aortic stenosis mean gradient 35 mmHg History of paroxysmal atrial fibrillation, currently sinus rhythm Acute on chronic HFpEF Type 2 diabetes Monitor vital signs Monitor CBC Monitor CMP Continue telemetry monitoring Encourage use of incentive spirometer Strict I's and O's Daily weights-continue IV Lasix DC Eliquis, start heparin pharmacy dose Continue cefepime, azithromycin Breathing treatment Cardiology following, recommendations noted from 10/30, will consider cardiac cath once clinically improves. Pulmonology following, recommendation noted from 10/30 Labs and medication were reviewed.. Continue same treatment. Continue with symptomatic treatment. Resume home medication. Monitor labs and vitals. DVT and GI prophylaxis. Further recommendations as per clinical course of the patient Dictation was produced using [employer] dictation software. please excuse any grammatical, word or spelling errors. Objective - Vital Signs Vital signs: Vital Signs Temp 97.6 F 10/30/24 00:00 Pulse 83 10/30/24 12:29 Resp 20 10/30/24 04:00 BP 115/62 10/30/24 04:00 Pulse Ox 98 10/30/24 04:00 FiO2 Intake & Output 10/29/24 10/30/24 10/30/24 18:59 06:59 18:59 Output Total 400 Balance -400 Weight 83.6 kg 83.6 kg Output: Urine 400 Other: Voiding Method Urinal - Labs CBC & Chem 7: 10/30/24 07:29 10/30/24 07:29 Labs: Abnormal Lab Results - Last 24 Hours (Table) 10/29/24 10/29/24 10/29/24 Range/Units 14:54 14:54 14:54 WBC (4.50-10.00) 10*3/uL RBC (4.40-5.60) 10*6/uL Hgb (13.0-17.0) g/dL Hct (39.6-50.0) % MCHC (32.0-37.0) g/dL MPV (9.5-12.2) fL Immature Gran # (0.00-0.04) 10*3/uL Neutrophils # (1.80-7.70) 10*3/uL Lymphocytes # (0.90-5.00) 10*3/uL Eosinophils # (0.04-0.35) 10*3/uL ESR 38 H (0-20) mm/Hr PT (10.0-12.5) sec INR (<1.2) APTT (22.0-30.0) sec Chloride (98-107) mmol/L BUN (9-20) mg/dL Creatinine (0.66-1.25) mg/dL POC Glucose (mg/dL) (70-110) mg/dL Calcium (8.4-10.2) mg/dL Troponin I 0.391 H* (0.000-0.034) ng/mL C-Reactive Protein 20.3 H (<1.0) mg/dL Total Protein (6.3-8.2) g/dL Albumin (3.5-5.0) g/dL Procalcitonin (0.02-0.50) ng/mL 10/29/24 10/29/24 10/29/24 Range/Units 14:54 18:02 19:03 WBC (4.50-10.00) 10*3/uL RBC (4.40-5.60) 10*6/uL Hgb (13.0-17.0) g/dL Hct (39.6-50.0) % MCHC (32.0-37.0) g/dL MPV (9.5-12.2) fL Immature Gran # (0.00-0.04) 10*3/uL Neutrophils # (1.80-7.70) 10*3/uL Lymphocytes # (0.90-5.00) 10*3/uL Eosinophils # (0.04-0.35) 10*3/uL ESR (0-20) mm/Hr PT (10.0-12.5) sec INR (<1.2) APTT (22.0-30.0) sec Chloride (98-107) mmol/L BUN (9-20) mg/dL Creatinine (0.66-1.25) mg/dL POC Glucose (mg/dL) 262 H 249 H (70-110) mg/dL Calcium (8.4-10.2) mg/dL Troponin I (0.000-0.034) ng/mL C-Reactive Protein (<1.0) mg/dL Total Protein (6.3-8.2) g/dL Albumin (3.5-5.0) g/dL Procalcitonin 2.19 H (0.02-0.50) ng/mL 10/29/24 10/30/24 10/30/24 Range/Units 20:31 05:56 07:29 WBC (4.50-10.00) 10*3/uL RBC (4.40-5.60) 10*6/uL Hgb (13.0-17.0) g/dL Hct (39.6-50.0) % MCHC (32.0-37.0) g/dL MPV (9.5-12.2) fL Immature Gran # (0.00-0.04) 10*3/uL Neutrophils # (1.80-7.70) 10*3/uL Lymphocytes # (0.90-5.00) 10*3/uL Eosinophils # (0.04-0.35) 10*3/uL ESR (0-20) mm/Hr PT (10.0-12.5) sec INR (<1.2) APTT (22.0-30.0) sec Chloride 109 H (98-107) mmol/L BUN 47 H (9-20) mg/dL Creatinine 1.34 H (0.66-1.25) mg/dL POC Glucose (mg/dL) 307 H 117 H (70-110) mg/dL Calcium 8.3 L (8.4-10.2) mg/dL Troponin I (0.000-0.034) ng/mL C-Reactive Protein (<1.0) mg/dL Total Protein 4.6 L (6.3-8.2) g/dL Albumin 2.4 L (3.5-5.0) g/dL Procalcitonin (0.02-0.50) ng/mL 10/30/24 10/30/24 10/30/24 Range/Units 07:29 07:29 07:29 WBC 11.22 H (4.50-10.00) 10*3/uL RBC 3.14 L (4.40-5.60) 10*6/uL Hgb 9.2 L D (13.0-17.0) g/dL Hct 29.0 L (39.6-50.0) % MCHC 31.7 L (32.0-37.0) g/dL MPV 12.5 H (9.5-12.2) fL Immature Gran # 0.09 H (0.00-0.04) 10*3/uL Neutrophils # 10.24 H (1.80-7.70) 10*3/uL Lymphocytes # 0.41 L (0.90-5.00) 10*3/uL Eosinophils # 0.03 L (0.04-0.35) 10*3/uL ESR (0-20) mm/Hr PT 12.6 H (10.0-12.5) sec INR 1.2 H (<1.2) APTT (22.0-30.0) sec Chloride (98-107) mmol/L BUN (9-20) mg/dL Creatinine (0.66-1.25) mg/dL POC Glucose (mg/dL) (70-110) mg/dL Calcium (8.4-10.2) mg/dL Troponin I 0.124 H* (0.000-0.034) ng/mL C-Reactive Protein (<1.0) mg/dL Total Protein (6.3-8.2) g/dL Albumin (3.5-5.0) g/dL Procalcitonin (0.02-0.50) ng/mL 07/05/25 07/05/25 07/05/25 Range/Units 10:22 12:36 13:02 WBC (4.50-10.00) 10*3/uL RBC (4.40-5.60) 10*6/uL Hgb (13.0-17.0) g/dL Hct (39.6-50.0) % MCHC (32.0-37.0) g/dL MPV (9.5-12.2) fL Immature Gran # (0.00-0.04) 10*3/uL Neutrophils # (1.80-7.70) 10*3/uL Lymphocytes # (0.90-5.00) 10*3/uL Eosinophils # (0.04-0.35) 10*3/uL ESR (0-20) mm/Hr PT (10.0-12.5) sec INR (<1.2) APTT 45.9 H (22.0-30.0) sec Chloride (98-107) mmol/L BUN (9-20) mg/dL Creatinine (0.66-1.25) mg/dL POC Glucose (mg/dL) 219 H (70-110) mg/dL Calcium (8.4-10.2) mg/dL Troponin I 0.158 H* (0.000-0.034) ng/mL C-Reactive Protein (<1.0) mg/dL Total Protein (6.3-8.2) g/dL Albumin (3.5-5.0) g/dL Procalcitonin (0.02-0.50) ng/mL
--- NOTE | 2024-10-30 15:37 | P.PN ---
Subjective Progress Note Date: 10/30/24 Principal diagnosis: Reason for follow-up is fever Patient is a 79-year-old male with a past medical history significant for COPD atrial fibrillation diabetes mellitus hypertension hyperlipidemia osteoarthritis recent multiple admission to the hospital with pneumonia he did have a bronchoscopy and lavage on 10/21/2024 that was positive for stenotrophomonas discharged on Bactrim now presented the hospital for weakness and did have a follow-up to have low-grade fever and elevated white count prompting this consultation. On today's evaluation that is 10/31/2023, patient did have a temperature of 97.6 F this morning and denies having any chills, patient is on 3 L of oxygen and breathing slightly comfortably no chest pain or any worsening cough, the patient did not have any nausea vomiting abdominal pain and mention no further diarrhea complaining of some urinary frequency. Patient white count is down to 11.22, creatinine is 1.34 procalcitonin 0.19 Objective - Vital Signs Vital signs: Vital Signs Temp 97.6 F 10/30/24 00:00 Pulse 108 H 10/30/24 15:29 Resp 20 10/30/24 04:00 BP 115/62 10/30/24 04:00 Pulse Ox 98 10/30/24 04:00 FiO2 Intake & Output 10/29/24 10/30/24 10/30/24 18:59 06:59 18:59 Output Total 400 Balance -400 Weight 83.6 kg 83.6 kg Output: Urine 400 Other: Voiding Method Urinal - Exam GENERAL DESCRIPTION: An elderly male l in a chair in no distress RESPIRATORY SYSTEM: Unlabored breathing , coarse breath sounds at bases HEART: S1 S2 regular rate and rhythm , ABDOMEN: Soft , no tenderness EXTREMITIES: No edema feet - Labs CBC & Chem 7: 10/30/24 07:29 10/30/24 07:29 Labs: Abnormal Lab Results - Last 24 Hours (Table) 10/29/24 10/29/24 10/29/24 Range/Units 14:54 14:54 14:54 WBC (4.50-10.00) 10*3/uL RBC (4.40-5.60) 10*6/uL Hgb (13.0-17.0) g/dL Hct (39.6-50.0) % MCHC (32.0-37.0) g/dL MPV (9.5-12.2) fL Immature Gran # (0.00-0.04) 10*3/uL Neutrophils # (1.80-7.70) 10*3/uL Lymphocytes # (0.90-5.00) 10*3/uL Eosinophils # (0.04-0.35) 10*3/uL ESR 38 H (0-20) mm/Hr PT (10.0-12.5) sec INR (<1.2) APTT (22.0-30.0) sec Chloride (98-107) mmol/L BUN (9-20) mg/dL Creatinine (0.66-1.25) mg/dL POC Glucose (mg/dL) (70-110) mg/dL Hemoglobin A1c (<=6.0) % Calcium (8.4-10.2) mg/dL Troponin I 0.391 H* (0.000-0.034) ng/mL C-Reactive Protein 20.3 H (<1.0) mg/dL Total Protein (6.3-8.2) g/dL Albumin (3.5-5.0) g/dL Procalcitonin (0.02-0.50) ng/mL 10/29/24 10/29/24 10/29/24 Range/Units 14:54 18:02 19:03 WBC (4.50-10.00) 10*3/uL RBC (4.40-5.60) 10*6/uL Hgb (13.0-17.0) g/dL Hct (39.6-50.0) % MCHC (32.0-37.0) g/dL MPV (9.5-12.2) fL Immature Gran # (0.00-0.04) 10*3/uL Neutrophils # (1.80-7.70) 10*3/uL Lymphocytes # (0.90-5.00) 10*3/uL Eosinophils # (0.04-0.35) 10*3/uL ESR (0-20) mm/Hr PT (10.0-12.5) sec INR (<1.2) APTT (22.0-30.0) sec Chloride (98-107) mmol/L BUN (9-20) mg/dL Creatinine (0.66-1.25) mg/dL POC Glucose (mg/dL) 262 H 249 H (70-110) mg/dL Hemoglobin A1c (<=6.0) % Calcium (8.4-10.2) mg/dL Troponin I (0.000-0.034) ng/mL C-Reactive Protein (<1.0) mg/dL Total Protein (6.3-8.2) g/dL Albumin (3.5-5.0) g/dL Procalcitonin 2.19 H (0.02-0.50) ng/mL 10/29/24 10/30/24 10/30/24 Range/Units 20:31 05:56 07:29 WBC (4.50-10.00) 10*3/uL RBC (4.40-5.60) 10*6/uL Hgb (13.0-17.0) g/dL Hct (39.6-50.0) % MCHC (32.0-37.0) g/dL MPV (9.5-12.2) fL Immature Gran # (0.00-0.04) 10*3/uL Neutrophils # (1.80-7.70) 10*3/uL Lymphocytes # (0.90-5.00) 10*3/uL Eosinophils # (0.04-0.35) 10*3/uL ESR (0-20) mm/Hr PT (10.0-12.5) sec INR (<1.2) APTT (22.0-30.0) sec Chloride (98-107) mmol/L BUN (9-20) mg/dL Creatinine (0.66-1.25) mg/dL POC Glucose (mg/dL) 307 H 117 H (70-110) mg/dL Hemoglobin A1c 9.0 H (<=6.0) % Calcium (8.4-10.2) mg/dL Troponin I (0.000-0.034) ng/mL C-Reactive Protein (<1.0) mg/dL Total Protein (6.3-8.2) g/dL Albumin (3.5-5.0) g/dL Procalcitonin (0.02-0.50) ng/mL 10/30/24 10/30/24 10/30/24 Range/Units 07:29 07: 07:29 WBC 11.22 H (4.50-10.00) 10*3/uL RBC 3.14 L (4.40-5.60) 10*6/uL Hgb 9.2 L D (13.0-17.0) g/dL Hct 29.0 L (39.6-50.0) % MCHC 31.7 L (32.0-37.0) g/dL MPV 12.5 H (9.5-12.2) fL Immature Gran # 0.09 H (0.00-0.04) 10*3/uL Neutrophils # 10.24 H (1.80-7.70) 10*3/uL Lymphocytes # 0.41 L (0.90-5.00) 10*3/uL Eosinophils # 0.03 L (0.04-0.35) 10*3/uL ESR (0-20) mm/Hr PT (10.0-12.5) sec INR (<1.2) APTT (22.0-30.0) sec Chloride 109 H (98-107) mmol/L BUN 47 H (9-20) mg/dL Creatinine 1.34 H (0.66-1.25) mg/dL POC Glucose (mg/dL) (70-110) mg/dL Hemoglobin A1c (<=6.0) % Calcium 8.3 L (8.4-10.2) mg/dL Troponin I 0.124 H* (0.000-0.034) ng/mL C-Reactive Protein (<1.0) mg/dL Total Protein 4.6 L (6.3-8.2) g/dL Albumin 2.4 L (3.5-5.0) g/dL Procalcitonin (0.02-0.50) ng/mL 10/30/24 10/30/24 10/30/24 Range/Units : 07:39 10:22 WBC (4.50-10.00) 10*3/uL RBC (4.40-5.60) 10*6/uL Hgb (13.0-17.0) g/dL Hct (39.6-50.0) % MCHC (32.0-37.0) g/dL MPV (9.5-12.2) fL Immature Gran # (0.00-0.04) 10*3/uL Neutrophils # (1.80-7.70) 10*3/uL Lymphocytes # (0.90-5.00) 10*3/uL Eosinophils # (0.04-0.35) 10*3/uL ESR (0-20) mm/Hr PT 12.6 H (10.0-12.5) sec INR 1.2 H (<1.2) APTT (22.0-30.0) sec Chloride (98-107) mmol/L BUN (9-20) mg/dL Creatinine (0.66-1.25) mg/dL POC Glucose (mg/dL) (70-110) mg/dL Hemoglobin A1c (<=6.0) % Calcium (8.4-10.2) mg/dL Troponin I 0.158 H* (0.000-0.034) ng/mL C-Reactive Protein (<1.0) mg/dL Total Protein (6.3-8.2) g/dL Albumin (3.5-5.0) g/dL Procalcitonin 1.23 H (0.02-0.50) ng/mL 10/30/24 10/30/24 Range/Units 12:36 13:02 WBC (4.50-10.00) 10*3/uL RBC (4.40-5.60) 10*6/uL Hgb (13.0-17.0) g/dL Hct (39.6-50.0) % MCHC (32.0-37.0) g/dL MPV (9.5-12.2) fL Immature Gran # (0.00-0.04) 10*3/uL Neutrophils # (1.80-7.70) 10*3/uL Lymphocytes # (0.90-5.00) 10*3/uL Eosinophils # (0.04-0.35) 10*3/uL ESR (0-20) mm/Hr PT (10.0-12.5) sec INR (<1.2) APTT 45.9 H (22.0-30.0) sec Chloride (98-107) mmol/L BUN (9-20) mg/dL Creatinine (0.66-1.25) mg/dL POC Glucose (mg/dL) 219 H (70-110) mg/dL Hemoglobin A1c (<=6.0) % Calcium (8.4-10.2) mg/dL Troponin I (0.000-0.034) ng/mL C-Reactive Protein (<1.0) mg/dL Total Protein (6.3-8.2) g/dL Albumin (3.5-5.0) g/dL Procalcitonin (0.02-0.50) ng/mL Assessment and Plan (1) Leukocytosis Current Visit: Yes Status: Acute Code(s): D72.829 - ELEVATED WHITE BLOOD C ELL COUNT, UNSPECIFIED SNOMED Code(s): 101376201 (2) Fever Current Visit: No Status: Acute Code(s): R50.9 - FEVER, UNSPECIFIED SNOMED Code(s): 710940061 (3) Penicillin allergy Current Visit: No Status: Acute Code(s): Z88.0 - ALLERGY STATUS TO PENICILLI N SNOMED Code(s): 11608457 (4) Renal insufficiency Current Visit: No Status: Acute Code(s): N28.9 - DISORDER OF KIDNEY AND URETER, UNSPECIFIED SNOMED Code(s): 850603987 Plan: 1patient presented hospital with weakness and did have a fall in this patient who was recently discharged from hospital after being treated for COPD his admission and there was concern for pneumonia status post bronchoscopy lavage was positive for stenotrophomonas now did have low-grade fever elevated white count chest x-ray has been mostly pulmonary vascular congestion further than consolidation has been complaining of some diarrhea however stool for C. difficile is negative urine is mildly positive with symptoms of frequency 2patient did have elevated procalcitonin and CRP 3obtain sputum for Gram stain and culture as well as urine culture currently pending. 4patient did have improvement in his fever pattern white count is trending down to continue cefepime while waiting for the culture to finalize Dictation was produced using [employer] dictation software. please excuse any grammatical, word or spelling errors. Time with Patient: Less than 30
[2024-10-30 20:10] LABS: Glucose,Whole Blood 264 mg/dL (70-110)
[2024-10-30] MEDS: ZOLPIDEM 5 MG TAB PO PRN (23:25)
[2024-10-31] MEDS: IPRATROPIUM-ALBUTEROL 3 ML NEB INHALATION PRN (00:23)
[2024-10-31 05:56] LABS: Glucose,Whole Blood 153 mg/dL (70-110)
[2024-10-31 07:40] LABS: Basophils # (A) 0.01 10*3/uL (0.00-0.10); Basophils % (A) 0.1 %; Eosinophils # (A) 0.04 10*3/uL (0.04-0.35); Eosinophils % (A) 0.5 %; HCT 27.0 % (39.6-50.0); HGB 8.6 g/dL (13.0-17.0); Lymphocytes # (A) 0.57 10*3/uL (0.90-5.00); Lymphocytes % (A) 7.7 %; MCH 29.6 pg (27.0-32.0); MCHC 31.9 g/dL (32.0-37.0); MCV 92.8 fL (80.0-97.0); Monocytes # (A) 0.33 10*3/uL (0.20-1.00); Monocytes % (A) 4.5 %; Neutrophils # (A) 6.34 10*3/uL (1.80-7.70); Neutrophils % (A) 86.2 %; Platelet Count 138 10*3/uL (140-440); RBC 2.91 10*6/uL (4.40-5.60); RDW 16.8 % (11.5-14.5); WBC 7.36 10*3/uL (4.50-10.00)
[2024-10-31 07:54] LABS: INR 1.0 (<1.2); Prothrombin Time 11.2 sec (10.0-12.5)
[2024-10-31 08:58] LABS: ALT 46 U/L (4-49); AST 23 U/L (17-59); African American GFR (CKD) 57 (>60 ml/min/1.73 sqM); Albumin 2.3 g/dL (3.5-5.0); Alkaline Phosphatase 72 U/L (38-126); Anion Gap 6 mmol/L; Blood Urea Nitrogen 37 mg/dL (9-20); Calcium 7.9 mg/dL (8.4-10.2); Carbon Dioxide 22 mmol/L (22-30); Chloride 108 mmol/L (98-107); Glucose 101 mg/dL (74-99); Non-African American GFR(CKD) 50 (>60 ml/min/1.73 sqM); Potassium 3.9 mmol/L (3.5-5.1); Sodium 136 mmol/L (137-145); Total Protein 4.5 g/dL (6.3-8.2)
[2024-10-31] MEDS ORDERED: NITROGLYCERIN SL TABS 0.4 MG TAB SUBLINGUAL PRN (10:30)
[2024-10-31] MEDS ORDERED: ALPRAZolam 0.25 MG TAB PO PRN (10:30)
[2024-10-31] MEDS ORDERED: ALPRAZolam 0.5 MG TAB PO PRN (10:30)
--- NOTE | 2024-10-31 10:33 | P.PN ---
Subjective Progress Note Date: 10/31/24 Reason for Consult (text): Elevated troponins History of present illness: This is a 79-year-old male patient of Dr. Hansen with past medical history of pa roxysmal atrial fibrillation on Eliquis, moderate to severe aortic stenosis, diabetes mellitus type 2, severe COPD, chronic hypoxic respiratory failure on home O2. We have been asked to evaluate the patient for elevated troponin. Patient had a recent hospitalization from . Patient was seen by cardiology at that time but patient presented with severe sepsis with pneumonia, acute on chronic hypoxic respiratory failure, COPD. On this occasion, patient presented to the hospital and had a fall on the floor around 2 AM and laid on the floor for 7 hours until his daughter came and found him. He states he did have a fever yesterday and his blood pressure was low yesterday. He denies any fever or chills now. He states he has a little cough. He does lower extremity edema. He complains of fatigue. Blood pressure 115/62, heart rate 60s and 70s, pulse ox 98% on 3 L nasal cannula. Patient is seen today in the emergency center waiting for a bed on the cardiac stepdown unit. Patient has been started on IV antibiotics, home medications and is status. -EKG: Sinus with nonspecific changes, mild ST elevation but does not meet criteria for acute [facility] -Chest x-ray: No consolidation. Cardiomegaly. Pulmonary vascular congestion and bilateral pleural effusions. #2 right lower lobe airspace opacities. Cardiomegaly, pulmonary vascular congestion or right pleural effusions. -Laboratory studies: WBC 11.2, hemoglobin 9.2. Sodium 133, BUN 49, initial creatinine 1.71 and repeat 1.34. Troponins 0.391 and 0.124. C-reactive protein 20.3. proBNP 5890. C. difficile toxin negative. Legionella antigen negative. CK 68. -Home cardiac medications: Amiodarone 100 mg daily, Eliquis 5 mg twice daily, atorvastatin 40 mg at bedtime, Jardiance 10 mg daily, Lasix 40 mg daily, Lopressor 12.5 mg twice daily, also on ferrous sulfate. -Echocardiogram performed 10/16/2024 revealed EF 55 to 60%, moderate concentric LVH, normal RV size and systolic function, mild left atrial dilatation. Severe aortic stenosis with mean gradient of 40. Tricuspid regurgitation. RVSP 32 mmHg. 10/31/2024 Patient seen and examined on the cardiac stepdown unit. He denies chest pain. He states his shortness of breath is about the same as yesterday. Blood pressure 93/55, heart rate 86, pulse ox 93% on 3 L nasal cannula. Repeat blood work reveals BUN 37, creatinine 1.36, hemoglobin 8.6 and platelet count 138. Patient remains on a heparin drip. Dr. Rosa discussed with the patient recommendations for cardiac catheterization and patient is agreeable to move forward with this. Yesterday, we started patient on heparin drip and gave him 1 dose of IV Lasix. Third troponin was 0.158. Physical examination: Gen: This is 79-year-old male in no acute distress VS: reviewed HEENT: Head is atraumatic, normocephalic. Pupils equal, round. Sclerae is anicteric. NECK: Supple. No JVD. LUNGS: Diminished breath sounds. No intercostal retractions. HEART: Regular rate and rhythm. Systolic murmur. ABDOMEN: Soft No tenderness. EXTREMITIES: No pedal edema. No calf tenderness. NEUROLOGICAL: Patient is awake, alert and oriented x3. Assessment: Fall at home and on floor for 7 hours, rhabdomyolysis ruled out Acute kidney injury secondary to hypotension Possible sepsis NSTEMI possibly due to fall and acute kidney injury with known underlying CAD, cannot completely rule out acute event Paroxysmal atrial fibrillation on Eliquis at home Severe aortic stenosis Anemia Diabetes mellitus type 2 Severe COPD Chronic hypoxic respiratory failure on home O2 Plan: Continue current cardiac medications: Amiodarone 100 mg daily, aspirin 81 mg daily, atorvastatin 40 mg at bedtime, metoprolol tartrate 12.5 mg twice daily Continue patient on heparin drip Obtain limited 2-D echocardiogram Schedule patient for cardiac catheterization on Friday with Dr. Hansen. Repeat BMP in the morning. N.p.o. after midnight Regarding severe , patient will need evaluation for TAVR which will include cardiac catheterization. Further recommendations to follow based upon clinical course Nurse practitioner note has been reviewed, I agree with documented findings and plan of care. Patient was seen and examined. Objective - Vital Signs Vital signs: Vital Signs Temp 98.2 F 10/31/24 03:30 Pulse 86 10/31/24 03:30 Resp 21 10/31/24 03:30 BP 93/55 10/31/24 03:30 Pulse Ox 93 L 10/31/24 03:30 FiO2 Intake & Output 10/30/24 10/31/24 10/31/24 18:59 06:59 18:59 Intake Total 245.667 Output Total 1400 Balance -1400 245.667 Weight 81 kg Intake: IV 20 Invasive Line 2 20 Intake, IV Titration 225.667 Amount Heparin Sod,Pork in 0.45% 225.667 NaCl 25,000 unit In 0.45 % NaCl 1 250ml.bag @ 11. 962 UNITS/KG/HR 10 mls/hr IV .Q24H [facility] Rx#: [id number] Output: Urine 1400 Other: Voiding Method External Catheter # Voids 1 - Labs CBC & Chem 7: 10/31/24 06:59 10/31/24 06:59 Labs: Abnormal Lab Results - Last 24 Hours (Table) 10/29/24 10/29/24 10/30/24 Range/Units 14:54 14:54 07:29 WBC (4.50-10.00) 10*3/uL RBC (4.40-5.60) 10*6/uL Hgb (13.0-17.0) g/dL Hct (39.6-50.0) % MCHC (32.0-37.0) g/dL MPV (9.5-12.2) fL Immature Gran # (0.00-0.04) 10*3/uL Neutrophils # (1.80-7.70) 10*3/uL Lymphocytes # (0.90-5.00) 10*3/uL Eosinophils # (0.04-0.35) 10*3/uL ESR 38 H (0-20) mm/Hr PT (10.0-12.5) sec INR (<1.2) APTT (22.0-30.0) sec Chloride (98-107) mmol/L BUN (9-20) mg/dL Creatinine (0.66-1.25) mg/dL POC Glucose (mg/dL) (70-110) mg/dL Hemoglobin A1c 9.0 H (<=6.0) % Calcium (8.4-10.2) mg/dL Troponin I (0.000-0.034) ng/mL Total Protein (6.3-8.2) g/dL Albumin (3.5-5.0) g/dL Procalcitonin 2.19 H (0.02-0.50) ng/mL 10/30/24 10/30/24 10/30/24 Range/Units 07: 07: 07:29 WBC 11.22 H (4.50-10.00) 10*3/uL RBC 3.14 L (4.40-5.60) 10*6/uL Hgb 9.2 L D (13.0-17.0) g/dL Hct 29.0 L (39.6-50.0) % MCHC 31.7 L (32.0-37.0) g/dL MPV 12.5 H (9.5-12.2) fL Immature Gran # 0.09 H (0.00-0.04) 10*3/uL Neutrophils # 10.24 H (1.80-7.70) 10*3/uL Lymphocytes # 0.41 L (0.90-5.00) 10*3/uL Eosinophils # 0.03 L (0.04-0.35) 10*3/uL ESR (0-20) mm/Hr PT (10.0-12.5) sec INR (<1.2) APTT (22.0-30.0) sec Chloride 109 H (98-107) mmol/L BUN 47 H (9-20) mg/dL Creatinine 1.34 H (0.66-1.25) mg/dL POC Glucose (mg/dL) (70-110) mg/dL Hemoglobin A1c (<=6.0) % Calcium 8.3 L (8.4-10.2) mg/dL Troponin I 0.124 H* (0.000-0.034) ng/mL Total Protein 4.6 L (6.3-8.2) g/dL Albumin 2.4 L (3.5-5.0) g/dL Procalcitonin (0.02-0.50) ng/mL 10/30/24 10/30/24 10/30/24 Range/Units 07: 07:39 10:22 WBC (4.50-10.00) 10*3/uL RBC (4.40-5.60) 10*6/uL Hgb (13.0-17.0) g/dL Hct (39.6-50.0) % MCHC (32.0-37.0) g/dL MPV (9.5-12.2) fL Immature Gran # (0.00-0.04) 10*3/uL Neutrophils # (1.80-7.70) 10*3/uL Lymphocytes # (0.90-5.00) 10*3/uL Eosinophils # (0.04-0.35) 10*3/uL ESR (0-20) mm/Hr PT 12.6 H (10.0-12.5) sec INR 1.2 H (<1.2) APTT (22.0-30.0) sec Chloride (98-107) mmol/L BUN (9-20) mg/dL Creatinine (0.66-1.25) mg/dL POC Glucose (mg/dL) (70-110) mg/dL Hemoglobin A1c (<=6.0) % Calcium (8.4-10.2) mg/dL Troponin I 0.158 H* (0.000-0.034) ng/mL Total Protein (6.3-8.2) g/dL Albumin (3.5-5.0) g/dL Procalcitonin 1.23 H (0.02-0.50) ng/mL 10/30/24 10/30/24 10/30/24 Range/Units 12:36 13:02 20:09 WBC (4.50-10.00) 10*3/uL RBC (4.40-5.60) 10*6/uL Hgb (13.0-17.0) g/dL Hct (39.6-50.0) % MCHC (32.0-37.0) g/dL MPV (9.5-12.2) fL Immature Gran # (0.00-0.04) 10*3/uL Neutrophils # (1.80-7.70) 10*3/uL Lymphocytes # (0.90-5.00) 10*3/uL Eosinophils # (0.04-0.35) 10*3/uL ESR (0-20) mm/Hr PT (10.0-12.5) sec INR (<1.2) APTT 45.9 H (22.0-30.0) sec Chloride (98-107) mmol/L BUN (9-20) mg/dL Creatinine (0.66-1.25) mg/dL POC Glucose (mg/dL) 219 H 264 H (70-110) mg/dL Hemoglobin A1c (<=6.0) % Calcium (8.4-10.2) mg/dL Troponin I (0.000-0.034) ng/mL Total Protein (6.3-8.2) g/dL Albumin (3.5-5.0) g/dL Procalcitonin (0.02-0.50) ng/mL 10/31/24 Range/Units 05:55 WBC (4.50-10.00) 10*3/uL RBC (4.40-5.60) 10*6/uL Hgb (13.0-17.0) g/dL Hct (39.6-50.0) % MCHC (32.0-37.0) g/dL MPV (9.5-12.2) fL Immature Gran # (0.00-0.04) 10*3/uL Neutrophils # (1.80-7.70) 10*3/uL Lymphocytes # (0.90-5.00) 10*3/uL Eosinophils # (0.04-0.35) 10*3/uL ESR (0-20) mm/Hr PT (10.0-12.5) sec INR (<1.2) APTT (22.0-30.0) sec Chloride (98-107) mmol/L BUN (9-20) mg/dL Creatinine (0.66-1.25) mg/dL POC Glucose (mg/dL) 153 H (70-110) mg/dL Hemoglobin A1c (<=6.0) % Calcium (8.4-10.2) mg/dL Troponin I (0.000-0.034) ng/mL Total Protein (6.3-8.2) g/dL Albumin (3.5-5.0) g/dL Procalcitonin (0.02-0.50) ng/mL Microbiology - Last 24 Hours (Table) 10/29/24 12:00 Urine Culture - Final Urine,Voided 10/29/24 10:17 Blood Culture - Preliminary Blood
--- NOTE | 2024-10-31 11:09 | P.PN ---
Subjective 79-year-old male patient with a known history of atrial fibrillation, anticoagulated with Eliquis diabetes mellitus, hyperlipidemia, oxygen dependent chronic obstructive pulmonary disease who presents the hospital because of shortness of breath. Patient was discharged last week after being admitted for shortness of breath, was being treated for pneumonia, had bronchoscopy with lavage done that was positive for stenotrophomonas and was discharged on Bactrim. Patient stated he was doing well for the first couple of days after his discharge but on Friday he had a fall, stated that his legs gave up and he ended up on the floor. Patient was laying on the floor for 6 hours, had to call neighbor for help. Patient did not had any loss of consciousness. Following the fall patient was complaining of back pain, daughter came to check on him. Daughter noted that the patient was getting more weak and had a hard time ambulating. Patient was complaining of shortness of breath. There was no complaint of chest pain. Patient denies any palpitation. There is no complaint of orthopnea or PND. Denies any nausea, vomiting abdominal pain. Patient denies any complaint of dizziness. There is no complaint of headache. Patient is complaining of abdominal distention and swelling of lower extremities. Because of shortness of breath and increasing weakness, patient brought the ER Initial lab work done in the ER showed WBC 16.09, hemoglobin 8, platelet count 156, sodium 133, potassium 4.9, BUN 14, creatinine 1.71, glucose 232, lactate 1 .9 AST 27, ALT 51, UA done showed urine WBC 42, leukocyte esterase moderate amount, urine nitrate negative EKG done in the ER showed heart rate of 110, no ST segment elevation or depression seen, no T-wave inversions seen. Chest x-ray done in the ER showed no discrete consolidation changes, cardiome sophie, pulm congestion and bilateral pleural effusions Patient admitted to internal medicine service 10/30. Patient seen and examined. Patient was sitting upright in the chair. States breathing has improved. States he used peeing a lot. Still states he gets short of breath on exertion. labs reviewed showing WBC 11.22, hemoglobin 9.2, sodium 139 potassium 4.3, BUN 47, creatinine 1.34, troponin 0.124. Currently wray on 3 L of oxygen 10/31/2024 Patient is still having some cough patient is afebrile, patient white count is coming down patient's previous sputum cultures were positive for stenotrophomonas. The cultures before that were positive for ischemia and Serratia. Patient is presently on cefepime treating for Serratia and dyspnea and stenotrophomonas is considered as a colonizer. Patient was on Bactrim which resulted in acute renal failure. Patient is presently off Bactrim presently on cefepime awaiting sputum cultures from this hospitalization patient had low- grade fever on admission. Patient also had elevated troponins and will need a TAVR as well. Patient's creatinine improved close to his baseline of 1.2 presently 1.3. Patient will undergo cardiac catheterization tomorrow. Patient was also on Lasix for heart failure with preserved ejection fraction related presently Lasix is being held. REVIEW OF SYSTEMS: CONSTITUTIONAL: No fever, no malaise,. CARDIOVASCULAR: No chest pain, no palpitations, no syncope. PULMONARY: Mentioned above GASTROINTESTINAL: No diarrhea, no nausea, no vomiting, no abdominal pain. NEUROLOGICAL: No headaches, no weakness, PHYSICAL EXAMINATION: GENERAL: The patient is alert and oriented x3, ill looking HEENT: Pupils are round and equally reacting to light. EOMI. No scleral icterus. No conjunctival pallor. Normocephalic, atraumatic. No pharyngeal erythema. No thyromegaly. CARDIOVASCULAR: S1 and S2 present. No murmurs, rubs, or gallops. PULMONARY: Diminished breath sounds at bases, crackles audible ABDOMEN: Soft, nontender, nondistended, normoactive bowel sounds. No palpable o rganomegaly. MUSCULOSKELETAL: No joint swelling or deformity. EXTREMITIES: No cyanosis, clubbing, 1+ pitting edema lower extremities NEUROLOGICAL: Gross neurological examination did not reveal any focal deficits. SKIN: No rashes. Assessment and plan -Pneumonia recurrent, multiple organisms in the previous sputum cultures he is presently on cefepime. Acute renal failure secondary to Bactrim improved after discontinuation of Bactrim presently at his baseline - Acute non-ST elevation myocardial infarction cannot rule out type I WA, patient will undergo cardiac catheterization tomorrow Fall Generalized weakness Acute on chronic hypoxic respiratory failure Bacterial pneumonia, recent bronchial lavage showing stenotrophomonas from last hospitalization History of COPD Moderate to severe aortic stenosis mean gradient 35 mmHg History of paroxysmal atrial fibrillation, currently sinus rhythm Acute on chronic HFpEF Type 2 diabetes Monitor vital signs Monitor CBC Monitor CMP Continue telemetry monitoring Encourage use of incentive spirometer Strict I's and O's heparin pharmacy dose Continue cefepime, azithromycin Breathing treatment Labs and medication were reviewed.. Continue same treatment. Continue with symptomatic treatment. Resume home medication. Monitor labs and vitals. DVT and GI prophylaxis. Further recommendations as per clinical course of the patient Objective - Vital Signs Vital signs: Vital Signs Temp 98.2 F 10/31/24 08:00 Pulse 89 10/31/24 08:32 Resp 22 10/31/24 08:00 BP 88/47 10/31/24 08:00 Pulse Ox 99 10/31/24 08:00 FiO2 Intake & Output 10/30/24 10/31/24 10/31/24 18:59 06:59 18:59 Intake Total 245.667 813.333 Output Total 1400 Balance -1400 245.667 813.333 Weight 81 kg Intake: IV 20 10 Invasive Line 2 20 10 Intake, IV Titration 225.667 363.333 Amount Azithromycin 500 mg In 250 Sodium Chloride 0.9% 250 ml @ 250 mls/hr IVPB DAILY [facility] Rx#:[id number] Cefepime 2 gm In Sodium 100 Chloride 0.9% 100 ml @ 25 mls/hr IVPB Q12HR [facility] Rx #:[id number] Heparin Sod,Pork in 0.45% 225.667 13.333 NaCl 25,000 unit In 0.45 % NaCl 1 250ml.bag @ 11. 962 UNITS/KG/HR 10 mls/hr IV .Q24H [facility] Rx#: [id number] Oral 440 Output: Urine 1400 Other: Voiding Method External Catheter External Catheter # Voids 1 - Labs CBC & Chem 7: 10/31/24 06:59 10/31/24 06:59 Labs: Abnormal Lab Results - Last 24 Hours (Table) 10/29/24 10/29/24 10/30/24 Range/Units 14:54 14:54 07:29 RBC (4.40-5.60) 10*6/uL Hgb (13.0-17.0) g/dL Hct (39.6-50.0) % MCHC (32.0-37.0) g/dL Plt Count (140-440) 10*3/uL MPV (9.5-12.2) fL Immature Gran # (0.00-0.04) 10*3/uL Lymphocytes # (0.90-5.00) 10*3/uL ESR 38 H (0-20) mm/Hr APTT (22.0-30.0) sec Sodium (137-145) mmol/L Chloride (98-107) mmol/L BUN (9-20) mg/dL Creatinine (0.66-1.25) mg/dL Glucose (74-99) mg/dL POC Glucose (mg/dL) (70-110) mg/dL Hemoglobin A1c 9.0 H (<=6.0) % Calcium (8.4-10.2) mg/dL Total Protein (6.3-8.2) g/dL Albumin (3.5-5.0) g/dL Procalcitonin 2.19 H (0.02-0.50) ng/mL 10/30/24 10/30/24 10/30/24 Range/Units 07:39 12:36 13:02 RBC (4.40-5.60) 10*6/uL Hgb (13.0-17.0) g/dL Hct (39.6-50.0) % MCHC (32.0-37.0) g/dL Plt Count (140-440) 10*3/uL MPV (9.5-12.2) fL Immature Gran # (0.00-0.04) 10*3/uL Lymphocytes # (0.90-5.00) 10*3/uL ESR (0-20) mm/Hr APTT 45.9 H (22.0-30.0) sec Sodium (137-145) mmol/L Chloride (98-107) mmol/L BUN (9-20) mg/dL Creatinine (0.66-1.25) mg/dL Glucose (74-99) mg/dL POC Glucose (mg/dL) 219 H (70-110) mg/dL Hemoglobin A1c (<=6.0) % Calcium (8.4-10.2) mg/dL Total Protein (6.3-8.2) g/dL Albumin (3.5-5.0) g/dL Procalcitonin 1.23 H (0.02-0.50) ng/mL 10/30/24 10/31/24 10/31/24 Range/Units 20:09 05:55 06:59 RBC 2.91 L (4.40-5.60) 10*6/uL Hgb 8.6 L (13.0-17.0) g/dL Hct 27.0 L (39.6-50.0) % MCHC 31.9 L (32.0-37.0) g/dL Plt Count 138 L (140-440) 10*3/uL MPV 12.4 H (9.5-12.2) fL Immature Gran # 0.07 H (0.00-0.04) 10*3/uL Lymphocytes # 0.57 L (0.90-5.00) 10*3/uL ESR (0-20) mm/Hr APTT (22.0-30.0) sec Sodium (137-145) mmol/L Chloride (98-107) mmol/L BUN (9-20) mg/dL Creatinine (0.66-1.25) mg/dL Glucose (74-99) mg/dL POC Glucose (mg/dL) 264 H 153 H (70-110) mg/dL Hemoglobin A1c (<=6.0) % Calcium (8.4-10.2) mg/dL Total Protein (6.3-8.2) g/dL Albumin (3.5-5.0) g/dL Procalcitonin (0.02-0.50) ng/mL 10/31/24/10/20 Range/Units 06:59 06:59 RBC (4.40-5.60) 10*6/uL Hgb (13.0-17.0) g/dL Hct (39.6-50.0) % MCHC (32.0-37.0) g/dL Plt Count (140-440) 10*3/uL MPV (9.5-12.2) fL Immature Gran # (0.00-0.04) 10*3/uL Lymphocytes # (0.90-5.00) 10*3/uL ESR (0-20) mm/Hr APTT 37.3 H (22.0-30.0) sec Sodium 136 L (137-145) mmol/L Chloride 108 H (98-107) mmol/L BUN 37 H (9-20) mg/dL Creatinine 1.36 H (0.66-1.25) mg/dL Glucose 101 H (74-99) mg/dL POC Glucose (mg/dL) (70-110) mg/dL Hemoglobin A1c (<=6.0) % Calcium 7.9 L (8.4-10.2) mg/dL Total Protein 4.5 L (6.3-8.2) g/dL Albumin 2.3 L (3.5-5.0) g/dL Procalcitonin (0.02-0.50) ng/mL Microbiology - Last 24 Hours (Table) 10/29/24 12:00 Urine Culture - Final Urine,Voided 10/29/24 10:17 Blood Culture - Preliminary Blood
[2024-10-31 11:33] LABS: Glucose,Whole Blood 163 mg/dL (70-110)
--- NOTE | 2024-10-31 13:10 | P.PN ---
Subjective Progress Note Date: 10/31/24 Principal diagnosis: Possible syncopal episode This is a 79-year-old male patient with a known history of chronic obstructive pulmonary disease, oxygen dependent, paroxysmal atrial fibrillation anticoagulated with Eliquis, severe aortic stenosis, diabetes mellitus, with recent frequent admissions. He was discharged on October 26, 2024. He was brought back to the hospital yesterday October 29, 2024 after sustaining a fall at home at approximately 2:00 in the morning. He is unsure if he tripped and fell or if he passed out. He laid on the ground for 6 hours until a neighbor came by to help him up. He was too weak to stand and EMS was called. He denied any chest pain. No worsening shortness of breath, cough or congestion. No abdominal pain, nausea vomiting or diarrhea. EKG revealed sinus tachycardia. Chest x-ray revealed no discrete consolidative changes. There is cardiomegaly and pulmonary vascular congestion with bilateral pleural effusions. White count 11.2. H emoglobin 9.2. Platelets 148. Sodium 138. Potassium 4.3. Bicarb 22. BUN 47. Creatinine 1.34. Troponin 0.124, 0.158. proBNP 5890. He is seen today in consultation in the emergency department. He is currently sitting up on a stretcher. Awake and alert oriented x 3. Unclear about what happened to him prior to being on the kitchen floor. He is currently maintaining good O2 saturation in the upper 90s on 3 L/min per nasal cannula. He is afebrile. Hemodynamically stable. Currently in sinus rhythm. Patient was seen today on 10/31/2024, breathing better easier, not in distress, and again the findings on his chest x-ray are consistent with inflammatory changes, patient is recovering from recent pneumonia involving the right lower lobe. Patient did not get readmitted because of pneumonia, his chief complaint was a complaint of passing out episode, and we believe that the passing of episode is most likely cardiac in nature related to his aortic stenosis, cardiology has seen the patient, and addressing this issue may have to be considered for cardiac catheterization and for eventually TAVR procedure. Patient is back on his usual bronchodilators, he is empirically on antibiotics, however considering his procalcitonin level is elevated, will recommend that we continue antibiotics for now. His WBC count today is normal came down from 16.09 down to 7.36 today. Electrolytes are normal BUN is 37 creatinine 1.36, came down from 1.71 on admission Objective - Vital Signs Vital signs: Vital Signs Temp 98.2 F 10/31/24 11:12 Pulse 89 10/31/24 12:14 Resp 22 10/31/24 11:12 BP 96/64 10/31/24 11:12 Pulse Ox 98 10/31/24 11:12 FiO2 Intake & Output 10/30/24 10/31/24 10/31/24 18:59 06:59 18:59 Intake Total 245.667 813.333 Output Total 1400 Balance -1400 245.667 813.333 Weight 81 kg Intake: IV 20 10 Invasive Line 2 20 10 Intake, IV Titration 225.667 363.333 Amount Azithromycin 500 mg In 250 Sodium Chloride 0.9% 250 ml @ 250 mls/hr IVPB DAILY [facility] Rx#:[id number] Cefepime 2 gm In Sodium 100 Chloride 0.9% 100 ml @ 25 mls/hr IVPB Q12HR [facility] Rx #:[id number] Heparin Sod,Pork in 0.45% 225.667 13.333 NaCl 25,000 unit In 0.45 % NaCl 1 250ml.bag @ 11. 962 UNITS/KG/HR 10 mls/hr IV .Q24H [facility] Rx#: [id number] Oral 440 Output: Urine 1400 Other: Voiding Method External Catheter External Catheter # Voids 1 - Exam GENERAL EXAM: Alert, pleasant 79-year-old male, obese, on 4 L nasal cannula and O2 sat is 98% HEAD: Normocephalic. EYES: Normal reaction of pupils, equal size. NOSE: Clear with pink turbinates. THROAT: No erythema or exudates. NECK: No masses, no JVD. CHEST: No chest wall deformity. LUNGS: Equal air entry with few scattered rhonchi. CVS: S1 and S2 normal with 3/6 systolic murmur over the aortic area ABDOMEN: No hepatosplenomegaly, normal bowel sounds, no guarding or rigidity. SKIN: No rashes CENTRAL NERVOUS SYSTEM: No focal deficits, tone is normal in all 4 extremities. EXTREMITIES: There is 1+ peripheral edema. No clubbing, no cyanosis. Periph eral pulses are intact. - Labs CBC & Chem 7: 10/31/24 06:59 10/31/24 06:59 Labs: Abnormal Lab Results - Last 24 Hours (Table) 10/30/24 10/30/24 10/30/24 Range/Units 07:29 07:39 12:36 RBC (4.40-5.60) 10*6/uL Hgb (13.0-17.0) g/dL Hct (39.6-50.0) % MCHC (32.0-37.0) g/dL Plt Count (140-440) 10*3/uL MPV (9.5-12.2) fL Immature Gran # (0.00-0.04) 10*3/uL Lymphocytes # (0.90-5.00) 10*3/uL APTT 45.9 H (22.0-30.0) sec Sodium (137-145) mmol/L Chloride (98-107) mmol/L BUN (9-20) mg/dL Creatinine (0.66-1.25) mg/dL Glucose (74-99) mg/dL POC Glucose (mg/dL) (70-110) mg/dL Hemoglobin A1c 9.0 H (<=6.0) % Calcium (8.4-10.2) mg/dL Total Protein (6.3-8.2) g/dL Albumin (3.5-5.0) g/dL Procalcitonin 1.23 H (0.02-0.50) ng/mL 10/30/24 10/30/24 10/31/24 Range/Units 13:02 20:09 05:55 RBC (4.40-5.60) 10*6/uL Hgb (13.0-17.0) g/dL Hct (39.6-50.0) % MCHC (32.0-37.0) g/dL Plt Count (140-440) 10*3/uL MPV (9.5-12.2) fL Immature Gran # (0.00-0.04) 10*3/uL Lymphocytes # (0.90-5.00) 10*3/uL APTT (22.0-30.0) sec Sodium (137-145) mmol/L Chloride (98-107) mmol/L BUN (9-20) mg/dL Creatinine (0.66-1.25) mg/dL Glucose (74-99) mg/dL POC Glucose (mg/dL) 219 H 264 H 153 H (70-110) mg/dL Hemoglobin A1c (<=6.0) % Calcium (8.4-10.2) mg/dL Total Protein (6.3-8.2) g/dL Albumin (3.5-5.0) g/dL Procalcitonin (0.02-0.50) ng/mL 10/31/24 10/31/24 10/31/24 Range/Units 06:59 06:59 06:59 RBC 2.91 L (4.40-5.60) 10*6/uL Hgb 8.6 L (13.0-17.0) g/dL Hct 27.0 L (39.6-50.0) % MCHC 31.9 L (32.0-37.0) g/dL Plt Count 138 L (140-440) 10*3/uL MPV 12.4 H (9.5-12.2) fL Immature Gran # 0.07 H (0.00-0.04) 10*3/uL Lymphocytes # 0.57 L (0.90-5.00) 10*3/uL APTT 37.3 H (22.0-30.0) sec Sodium 136 L (137-145) mmol/L Chloride 108 H (98-107) mmol/L BUN 37 H (9-20) mg/dL Creatinine 1.36 H (0.66-1.25) mg/dL Glucose 101 H (74-99) mg/dL POC Glucose (mg/dL) (70-110) mg/dL Hemoglobin A1c (<=6.0) % Calcium 7.9 L (8.4-10.2) mg/dL Total Protein 4.5 L (6.3-8.2) g/dL Albumin 2.3 L (3.5-5.0) g/dL Procalcitonin (0.02-0.50) ng/mL 10/31/24 Range/Units 11:31 RBC (4.40-5.60) 10*6/uL Hgb (13.0-17.0) g/dL Hct (39.6-50.0) % MCHC (32.0-37.0) g/dL Plt Count (140-440) 10*3/uL MPV (9.5-12.2) fL Immature Gran # (0.00-0.04) 10*3/uL Lymphocytes # (0.90-5.00) 10*3/uL APTT (22.0-30.0) sec Sodium (137-145) mmol/L Chloride (98-107) mmol/L BUN (9-20) mg/dL Creatinine (0.66-1.25) mg/dL Glucose (74-99) mg/dL POC Glucose (mg/dL) 163 H (70-110) mg/dL Hemoglobin A1c (<=6.0) % Calcium (8.4-10.2) mg/dL Total Protein (6.3-8.2) g/dL Albumin (3.5-5.0) g/dL Procalcitonin (0.02-0.50) ng/mL Microbiology - Last 24 Hours (Table) 10/29/24 12:00 Urine Culture - Final Urine,Voided 10/29/24 10:17 Blood Culture - Preliminary Blood Assessment and Plan Assessment: Impression: Fall with possible syncopal episode, on the floor for 6 hours Troponin leak Severe aortic stenosis with a mean gradient of 40 mmHg Acute kidney injury Subacute right lower lobe pneumonia which was partially treated as inpatient, patient received antibiotics on outpatient basis/Bactrim for Stenotrophomonas maltophilia. Anemia, stool for occult blood pending Acute on chronic diastolic congestive heart failure Acute on chronic hypoxic respiratory failure secondary to above and recently treated for community-acquired pneumonia Recent discharge on October 26, 2024 for acute pneumonia secondary to Stenotrophomonas maltophilia found on bronchial wash from 10/21/2024 Recent discharge in September 27, 2024 for pneumonia secondary to Serratia liquefaciens and Yersinia species Paroxysmal atrial fibrillation anticoagulated with Eliquis, currently in sinus rhythm Severe oxygen dependent, steroid-dependent chronic obstructive pulmonary disease with an FEV1 value of 30% of predicted Chronic hypoxic respiratory failure secondary to above maintained on home oxygen normally at 3 to 4 L Former heavy smoker quit approximately 10 months ago Hyperlipidemia Recommendation: Continue present supportive care measures Continue oxygen and titrate as tolerated Continue heparin Hold Eliquis Patient is being considered for cardiac catheterization and possibly TAVR Continue updrafts/DuoNeb Continue antibiotics Zithromax and cefepime for now, procalcitonin level is noted to be elevated Continue Symbicort Will continue to follow Overall long-term prognosis seems to be poor and guarded considering his multiple comorbidities and multiple complex issues as noted above Time with Patient: Less than 30
--- NOTE | 2024-10-31 15:27 | P.PN ---
Subjective Progress Note Date: 10/31/24 Principal diagnosis: Reason for follow-up is fever Patient is a 79-year-old male with a past medical history significant for COPD atrial fibrillation diabetes mellitus hypertension hyperlipidemia osteoarthritis recent multiple admission to the hospital with pneumonia he did have a bronchoscopy and lavage on 10/21/2024 that was positive for stenotrophomonas discharged on Bactrim now presented the hospital for weakness and did have a follow-up to have low-grade fever and elevated white count prompting this consultation. On today's evaluation that is 10/31/2024, Patient is afebrile patient is currently on 4 L nasal oxygen and breathing slightly comfortably, the patient denies any chest pain or any worsening cough, the patient denies any nausea vomiting did not have any abdominal pain and no diarrhea. Patient white count is 7.36, creatinine is 1.36 blood and urine culture have been negative so far Objective - Vital Signs Vital signs: Vital Signs Temp 98.2 F 10/31/24 11:12 Pulse 89 10/31/24 15:09 Resp 22 10/31/24 14:00 BP 96/64 10/31/24 11:12 Pulse Ox 98 10/31/24 11:12 FiO2 Intake & Output 10/30/24 10/31/24 10/31/24 18:59 06:59 18:59 Intake Total 707.172 4196.333 Output Total 1400 Balance -1400 379.222 3714.333 Weight 81 kg Intake: IV 20 20 Invasive Line 2 20 20 Intake, IV Titration 225.667 363.333 Amount Azithromycin 500 mg In 250 Sodium Chloride 0.9% 250 ml @ 250 mls/hr IVPB DAILY [facility] Rx#:[id number] Cefepime 2 gm In Sodium 100 Chloride 0.9% 100 ml @ 25 mls/hr IVPB Q12HR [facility] Rx #:[id number] Heparin Sod,Pork in 0.45% 225.667 13.333 NaCl 25,000 unit In 0.45 % NaCl 1 250ml.bag @ 11. 962 UNITS/KG/HR 10 mls/hr IV .Q24H [facility] Rx#: [id number] Oral 680 Output: Urine 1400 Other: Voiding Method External Catheter External Catheter # Voids 1 - Exam GENERAL DESCRIPTION: An elderly male l in a chair in no distress RESPIRATORY SYSTEM: Unlabored breathing , coarse breath sounds at bases HEART: S1 S2 regular rate and rhythm , ABDOMEN: Soft , no tenderness EXTREMITIES: No edema feet - Labs CBC & Chem 7: 10/31/24 06:59 10/31/24 06:59 Labs: Abnormal Lab Results - Last 24 Hours (Table) 10/30/24 10/31/24 10/31/24 Range/Units 20:09 05:55 06:59 RBC 2.91 L (4.40-5.60) 10*6/uL Hgb 8.6 L (13.0-17.0) g/dL Hct 27.0 L (39.6-50.0) % MCHC 31.9 L (32.0-37.0) g/dL Plt Count 138 L (140-440) 10*3/uL MPV 12.4 H (9.5-12.2) fL Immature Gran # 0.07 H (0.00-0.04) 10*3/uL Lymphocytes # 0.57 L (0.90-5.00) 10*3/uL APTT (22.0-30.0) sec Sodium (137-145) mmol/L Chloride (98-107) mmol/L BUN (9-20) mg/dL Creatinine (0.66-1.25) mg/dL Glucose (74-99) mg/dL POC Glucose (mg/dL) 264 H 153 H (70-110) mg/dL Calcium (8.4-10.2) mg/dL Total Protein (6.3-8.2) g/dL Albumin (3.5-5.0) g/dL 10/31/24 10/31/24 10/31/24 Range/Units 06:59 06:59 11:31 RBC (4.40-5.60) 10*6/uL Hgb (13.0-17.0) g/dL Hct (39.6-50.0) % MCHC (32.0-37.0) g/dL Plt Count (140-440) 10*3/uL MPV (9.5-12.2) fL Immature Gran # (0.00-0.04) 10*3/uL Lymphocytes # (0.90-5.00) 10*3/uL APTT 37.3 H (22.0-30.0) sec Sodium 136 L (137-145) mmol/L Chloride 108 H (98-107) mmol/L BUN 37 H (9-20) mg/dL Creatinine 1.36 H (0.66-1.25) mg/dL Glucose 101 H (74-99) mg/dL POC Glucose (mg/dL) 163 H (70-110) mg/dL Calcium 7.9 L (8.4-10.2) mg/dL Total Protein 4.5 L (6.3-8.2) g/dL Albumin 2.3 L (3.5-5.0) g/dL 10/31/24 Range/Units 14:00 RBC (4.40-5.60) 10*6/uL Hgb (13.0-17.0) g/dL Hct (39.6-50.0) % MCHC (32.0-37.0) g/dL Plt Count (140-440) 10*3/uL MPV (9.5-12.2) fL Immature Gran # (0.00-0.04) 10*3/uL Lymphocytes # (0.90-5.00) 10*3/uL APTT 35.6 H (22.0-30.0) sec Sodium (137-145) mmol/L Chloride (98-107) mmol/L BUN (9-20) mg/dL Creatinine (0.66-1.25) mg/dL Glucose (74-99) mg/dL POC Glucose (mg/dL) (70-110) mg/dL Calcium (8.4-10.2) mg/dL Total Protein (6.3-8.2) g/dL Albumin (3.5-5.0) g/dL Microbiology - Last 24 Hours (Table) 10/29/24 12:00 Urine Culture - Final Urine,Voided 10/29/24 10:17 Blood Culture - Preliminary Blood Assessment and Plan (1) Leukocytosis Current Visit: Yes Status: Acute Code(s): D72.829 - ELEVATED WHITE BLOOD CELL COUNT, UNSPECIFIED SNOMED Code(s): 844118185 (2) Fever Current Visit: No Status: Acute Code(s): R50.9 - FEVER, UNSPECIFIED SNOMED Code(s): 301204323 (3) Penicillin allergy Current Visit: No Status: Acute Code(s): Z88.0 - ALLERGY STATUS TO PENICILLIN SNOMED Code(s): 28007203 (4) Renal insufficiency Current Visit: No Status: Acute Code(s): N28.9 - DISORDER OF KIDNEY AND URETER, UNSPECIFIED SNOMED Code(s): 803677501 Plan: 1patient presented hospital with weakness and did have a fall in this patient who was recently discharged from hospital after being treated for COPD his admission and there was concern for pneumonia status post bronchoscopy lavage was positive for stenotrophomonas now did have low-grade fever elevated white count chest x-ray has been mostly pulmonary vascular congestion further than consolidation has been complaining of some diarrhea however stool for C. difficile is negative urine is mildly positive with symptoms of frequency 2patient did have elevated procalcitonin and CRP 3obtain sputum for Gram stain and culture as well as urine culture so far negative 4patient did have improvement in his fever pattern white count has normalized, patient to continue cefepime and monitor clinical course closely family at the bedside multiple questions answered Dictation was produced using [employer] dictation software. please excuse any grammatical, word or spelling errors. Time with Patient: Less than 30
[2024-10-31] MEDS: HEPARIN SODIUM 1,000 UN/ML (10ML VL) IV PRN (16:21)
[2024-10-31 16:37] LABS: Glucose,Whole Blood 197 mg/dL (70-110)
[2024-10-31 20:07] LABS: Glucose,Whole Blood 253 mg/dL (70-110)
[2024-11-01 06:04] LABS: Glucose,Whole Blood 134 mg/dL (70-110)
[2024-11-01] MEDS: ATORVASTATIN 80 MG TAB PO ONE (06:27)
[2024-11-01] MEDS: ASPIRIN 325 MG TAB PO ONE (06:27)
[2024-11-01] MEDS ORDERED: HEPARIN SODIUM,PORCINE 10,000 UNIT in SODIUM CHLORIDE 0.9% 1,000 ML IRRIGATION PRN (07:00)
[2024-11-01] MEDS ORDERED: HEPARIN SODIUM,PORCINE (1 ML) 2,500 UNIT in SODIUM CHLORIDE 0.9% 250 ML IRRIGATION PRN (07:00)
[2024-11-01 07:26] LABS: HCT 25.8 % (39.6-50.0); HGB 8.1 g/dL (13.0-17.0); MCH 29.2 pg (27.0-32.0); MCHC 31.4 g/dL (32.0-37.0); MCV 93.1 fL (80.0-97.0); Platelet Count 136 10*3/uL (140-440); RBC 2.77 10*6/uL (4.40-5.60); RDW 16.7 % (11.5-14.5); WBC 6.03 10*3/uL (4.50-10.00)
[2024-11-01] MEDS ORDERED: ATORVASTATIN 80 MG TAB PO STA (07:54)
[2024-11-01] MEDS ORDERED: ALPRAZolam 0.25 MG TAB PO PRN (07:54)
[2024-11-01] MEDS ORDERED: ALPRAZolam 0.5 MG TAB PO PRN (07:54)
[2024-11-01] MEDS ORDERED: NITROGLYCERIN SL TABS 0.4 MG TAB SUBLINGUAL PRN (07:54)
[2024-11-01] MEDS ORDERED: ASPIRIN 325 MG TAB PO STA (07:54)
[2024-11-01 07:56] LABS: African American GFR (CKD) 62 (>60 ml/min/1.73 sqM); Anion Gap 6 mmol/L; Blood Urea Nitrogen 27 mg/dL (9-20); Calcium 7.7 mg/dL (8.4-10.2); Carbon Dioxide 21 mmol/L (22-30); Chloride 112 mmol/L (98-107); Glucose 111 mg/dL (74-99); Magnesium 2.3 mg/dL (1.6-2.3); Non-African American GFR(CKD) 54 (>60 ml/min/1.73 sqM); Potassium 4.0 mmol/L (3.5-5.1); Sodium 139 mmol/L (137-145)
[2024-11-01] MEDS ORDERED: fentaNYL (PF) 50 MCG/ML 2 ML AMP IVP PRN (09:35)
[2024-11-01] MEDS ORDERED: BENZOCAINE SPRAY 1 EACH MM PRN (09:35)
[2024-11-01 11:36] LABS: Glucose,Whole Blood 252 mg/dL (70-110)
[2024-11-01] MEDS ORDERED: PETROLATUM, WHITE 49 GM JELLY TOPICAL PRN (12:32)
[2024-11-01 13:12] VITALS: BMI 25.5
--- NOTE | 2024-11-01 13:40 | P.PN ---
Subjective Progress Note Date: 11/01/24 Principal diagnosis: Respiratory failure. This is a 79-year-old male patient with a known history of chronic obstructive pulmonary disease, oxygen dependent, paroxysmal atrial fibrillation anticoagulated with Eliquis, severe aortic stenosis, diabetes mellitus, with recent frequent admissions. He was discharged on October 26, 2024. He was brought back to the hospital yesterday October 29, 2024 after sustaining a fall at home at approximately 2:00 in the morning. He is unsure if he tripped and fell or if he passed out. He laid on the ground for 6 hours until a neighbor came by to help him up. He was too weak to stand and EMS was called. He denied any chest pain. No worsening shortness of breath, cough or congestion. No abdominal pain, nausea vomiting or diarrhea. EKG revealed sinus tachycardia. Chest x-ray revealed no discrete consolidative changes. There is cardiomegaly and pulmonary vascular congestion with bilateral pleural effusions. White count 11.2. Hemoglobin 9.2. Platelets 148. Sodium 138. Potassium 4.3. Bicarb 22. BUN 47. Creatinine 1.34. Troponin 0.124, 0.158. proBNP 5890. He is seen today in consultation in the emergency department. He is currently sitting up on a stretcher. Awake and alert oriented x 3. Unclear about what happened to him prior to being on the kitchen floor. He is currently maintaining good O2 saturation in the upper 90s on 3 L/min per nasal cannula. He is afebrile. Hemodynamically stable. Currently in sinus rhythm. Patient was seen today on 10/31/2024, breathing better easier, not in distress, and again the findings on his chest x-ray are consistent with inflammatory changes, patient is recovering from recent pneumonia involving the right lower lobe. Patient did not get readmitted because of pneumonia, his chief complaint was a complaint of passing out episode, and we believe that the passing of episo de is most likely cardiac in nature related to his aortic stenosis, cardiology has seen the patient, and addressing this issue may have to be considered for cardiac catheterization and for eventually TAVR procedure. Patient is back on his usual bronchodilators, he is empirically on antibiotics, however considering his procalcitonin level is elevated, will recommend that we continue antibiotics for now. His WBC count today is normal came down from 16.09 down to 7.36 today. Electrolytes are normal BUN is 37 creatinine 1.36, came down from 1.71 on admission Progress note dated November 01, 2024. The patient was seen today in room 360. He continues on nasal O2 at 3 L. He also has IV heparin running. The patient is awake and alert. No acute distress. No respiratory distress. He can speak in full sentences. The patient has had multiple admissions to this hospital in recent weeks. Current laboratory data includes a white count of 6.03, hemoglobin 8.1, hematocrit 25.8, and a platelet count of 136,000. Sodium 139, potassium 4, chlorides 112, CO2 21, BUN 27, creatinine 1.27. Glucose is 252. Calcium is 7.7. Objective - Vital Signs Vital signs: Vital Signs Temp 97.5 F L 11/01/24 08:00 Pulse 85 11/01/24 12:00 Resp 18 11/01/24 12:00 BP 92/54 11/01/24 12:00 Pulse Ox 99 11/01/24 12:00 FiO2 Intake & Output 10/31/24 11/01/24 11/01/24 18:59 06:59 18:59 Intake Total 1980.873 169.127 480 Output Total 300 200 275 Balance 1680.873 -30.873 205 Weight 78.5 kg 78.5 kg Intake: IV 20 20 10 Invasive Line 2 20 20 10 Intake, IV Titration 800.873 149.127 Amount Azithromycin 500 mg In 500 Sodium Chloride 0.9% 250 ml @ 250 mls/hr IVPB DAILY [facility] Rx#:[id number] Cefepime 2 gm In Sodium 200 Chloride 0.9% 100 ml @ 25 mls/hr IVPB Q12HR [facility] Rx #:[id number] Heparin Sod,Pork in 0.45% 100.873 149.127 NaCl 25,000 unit In 0.45 % NaCl 1 250ml.bag @ 11. 962 UNITS/KG/HR 10 mls/hr IV .Q24H [facility] Rx#: [id number] Oral 1160 470 Output: Urine 300 200 275 Other: Voiding Method External Catheter External Catheter Urinal - Exam No acute distress, oriented 3. Currently on 3 L of oxygen. HEENT examination is grossly unremarkable. Mucous membranes are moist. No oral lesions. Neck supple. Full range of motion. No adenopathy thyromegaly or neck vein distention. Cardiovascular examination reveals regular rhythm rate. S1-S2 normal. No S3 or S4. A 3/6 systolic murmur is noted. Lungs reveal scattered bilateral rhonchi and crackles. No wheezes. Breath sounds are equal bilaterally. Abdomen soft bowel sounds are heard. No masses or tenderness. Extremities are intact. No cyanosis or clubbing. Mild edema is present. Skin is without rash or lesion. Neurologic examination is brief but nonfocal. - Labs CBC & Chem 7: 11/01/24 06:23 11/01/24 06:23 Labs: Abnormal Lab Results - Last 24 Hours (Table) 10/31/24 10/31/24 10/31/24 Range/Units 14:00 16:36 20:04 RBC (4.40-5.60) 10*6/uL Hgb (13.0-17.0) g/dL Hct (39.6-50.0) % MCHC (32.0-37.0) g/dL Plt Count (140-440) 10*3/uL MPV (9.5-12.2) fL APTT 35.6 H (22.0-30.0) sec Chloride (98-107) mmol/L Carbon Dioxide (22-30) mmol/L BUN (9-20) mg/dL Creatinine (0.66-1.25) mg/dL Glucose (74-99) mg/dL POC Glucose (mg/dL) 197 H 253 H (70-110) mg/dL Calcium (8.4-10.2) mg/dL 10/31/24 11/01/24 11/01/24 Range/Units 22:20 06:02 06:23 RBC 2.77 L (4.40-5.60) 10*6/uL Hgb 8.1 L (13.0-17.0) g/dL Hct 25.8 L (39.6-50.0) % MCHC 31.4 L (32.0-37.0) g/dL Plt Count 136 L (140-440) 10*3/uL MPV 12.7 H (9.5-12.2) fL APTT 43.1 H (22.0-30.0) sec Chloride (98-107) mmol/L Carbon Dioxide (22-30) mmol/L BUN (9-20) mg/dL Creatinine (0.66-1.25) mg/dL Glucose (74-99) mg/dL POC Glucose (mg/dL) 134 H (70-110) mg/dL Calcium (8.4-10.2) mg/dL 11/01/24 11/01/24 Range/Units 06:23 11:34 RBC (4.40-5.60) 10*6/uL Hgb (13.0-17.0) g/dL Hct (39.6-50.0) % MCHC (32.0-37.0) g/dL Plt Count (140-440) 10*3/uL MPV (9.5-12.2) fL APTT (22.0-30.0) sec Chloride 112 H (98-107) mmol/L Carbon Dioxide 21 L (22-30) mmol/L BUN 27 H (9-20) mg/dL Creatinine 1.27 H (0.66-1.25) mg/dL Glucose 111 H (74-99) mg/dL POC Glucose (mg/dL) 252 H (70-110) mg/dL Calcium 7.7 L (8.4-10.2) mg/dL Microbiology - Last 24 Hours (Table) 10/29/24 10:17 Blood Culture - Preliminary Blood Assessment and Plan Assessment: Fall, with possible syncopal episode. Severe aortic stenosis, currently being evaluated by cardiology. Acute kidney injury. Right lower lobe pneumonia. Anemia, chronic. Acute on chronic diastolic CHF. Acute on chronic hypoxemic respiratory failure, secondary to her pneumonia. Recent hospitalizations for pneumonia, secondary to stenotrophomonas and Serratia. Paroxysmal atrial fibrillation. Severe oxygen dependent and steroid-dependent COPD, with an FEV1 that is 30% of predicted. Chronic hypoxemic respiratory failure. Former heavy tobacco user. Hyperlipidemia. Plan: Plan dated November 01, 2024. The patient continues on supportive care, including, oxygen, heparin, updrafts, Symbicort, antibiotics, etc. All labs, x-rays, and medications are reviewed. We will continue to follow the patient, make recommendations along the way. Overall prognosis remains guarded. The patient remains a full code. He is being followed by cardiology, for his aortic stenosis. Certainly, given the severity of his COPD, he would be a high risk patient. We will continue to follow. Dictation was produced using [employer] software. Please excuse any grammatical, word or spelling errors. Time with Patient: Less than 30
[2024-11-01] MEDS: NYSTATIN 100,000 UNIT/ML SUSP 500,000 UNIT/5 ML CUP PO SCH (14:11)
--- NOTE | 2024-11-01 14:54 | P.PN ---
Subjective Subjective: 79-year-old male patient with a known history of atrial fibrillation, anticoagulated with Eliquis diabetes mellitus, hyperlipidemia, oxygen dependent chronic obstructive pulmonary disease who presents the hospital because of shortness of breath. Patient was discharged last week after being admitted for shortness of breath, was being treated for pneumonia, had bronchoscopy with lavage done that was positive for stenotrophomonas and was discharged on Bactrim. Patient stated he was doing well for the first couple of days after his discharge but on Friday he had a fall, stated that his legs gave up and he ended up on the floor. Patient was laying on the floor for 6 hours, had to call neighbor for help. Patient did not had any loss of consciousness. Following the fall patient was complaining of back pain, daughter came to check on him. Daughter noted that the patient was getting more weak and had a hard time ambulating. Patient was complaining of shortness of breath. There was no complaint of chest pain. Patient denies any palpitation. There is no complaint of orthopnea or PND. Denies any nausea, vomiting abdominal pain. Patient denies any complaint of dizziness. There is no complaint of headache. Patient is complaining of abdominal distention and swelling of lower extremities. Because of shortness of breath and increasing weakness, patient brought the ER Initial lab work done in the ER showed WBC 16.09, hemoglobin 8, platelet count 156, sodium 133, potassium 4.9, BUN 14, creatinine 1.71, glucose 232, lactate 1.9 AST 27, ALT 51, UA done showed urine WBC 42, leukocyte esterase moderate amount, urine nitrate negative. EKG done in the ER showed heart rate of 110, no ST segment elevation or depression seen, no T-wave inversions seen. Chest x-ray done in the ER showed no discrete consolidation changes, cardiomegaly, pulm congestion and bilateral pleural effusions. Patient admitted [facility]. 10/30. Patient seen and examined. Patient was sitting upright in the chair. States breathing has improved. States he used peeing a lot. Still states he gets short of breath on exertion. labs reviewed showing WBC 11.22, hemoglobin 9.2, sodium 139 potassium 4.3, BUN 47, creatinine 1.34, troponin 0.124. 10/31/2024 Patient is still having some cough patient is afebrile, patient white count is coming down patient's previous sputum cultures were positive for stenotrophomonas. The cultures before that were positive for ischemia and Serratia. Patient is presently on cefepime treating for Serratia and dyspnea and stenotrophomonas is considered as a colonizer. Patient was on Bactrim which resulted in acute renal failure. Patient is presently off Bactrim presently on cefepime awaiting sputum cultures from this hospitalization patient had low- grade fever on admission. Patient also had elevated troponins and will need a TAVR as well. Patient's creatinine improved close to his baseline of 1.2 presently 1.3. Patient will undergo cardiac catheterization tomorrow. Patient was also on Lasix for heart failure with preserved ejection fraction related presently Lasix is being held. 11/01-patient seen and examined at bedside. Patient was sitting upright in the chair. Not in distress states he feels better. Afebrile. SPO2 98 on 3 L of oxygen. Awaiting cardiac catheterization procedure. On IV heparin drip. His W BC count today remains normal. No significant overnight events. Pertinent positives and negatives discussed above, a complete review of systems was preformed and all the other systems were negative. Vitals Signs Reviewed. GENERAL EXAM: Alert, pleasant 79-year-old male, on 3L nasal cannula and O2 sat is 98% HEAD: Normocephalic. EYES: Normal reaction of pupils, equal size. NOSE: Clear with pink turbinates. THROAT: No erythema or exudates. NECK: No masses, no JVD. CHEST: No chest wall deformity. LUNGS: Equal air entry with few scattered rhonchi. CVS: S1 and S2 normal with 3/6 systolic murmur over the aortic area ABDOMEN: No hepatosplenomegaly, normal bowel sounds, no guarding or rigidity. SKIN: No rashes CENTRAL NERVOUS SYSTEM: No focal deficits, tone is normal in all 4 extremities. EXTREMITIES: There is 1+ pedal edema. No clubbing, no cyanosis. Peripheral pulses are intact. Data Reveiwed Today: 11/01/2024 Patient Labs: WBC 6.03, Hb 8.1, sodium 139, potassium 4, glucose 111, proBNP 4.5 (10/31), procalcitonin 1.23 (10/30). Imaging: CXR -right lower lobe airspace opacities not significantly changed. Cardiomegaly, pulmonary vascular congestion with pleural effusions. Correlate with BNP for congestive heart failure. Assessment and plan Pneumonia recurrent, multiple organisms in the previous sputum cultures he is presently on cefepime. Acute renal failure secondary to Bactrim improved after discontinuation of Bactrim presently at his baseline Acute non-ST elevation myocardial infarction cannot rule out type I ID, patient will undergo cardiac catheterization Fall Generalized weakness Acute on chronic hypoxic respiratory failure Bacterial pneumonia, recent bronchial lavage showing stenotrophomonas from last hospitalization History of COPD Moderate to severe aortic stenosis mean gradient 35 mmHg History of paroxysmal atrial fibrillation, currently sinus rhythm Acute on chronic HFpEF Type 2 diabetes A/W Cardiac laboratory cureman On IV heparin drip Continue cefepime, azithromycin as elevated procalcitonin Continue telemetry monitoring Encourage use of incentive spirometer Strict I's and O's continue with heparin pharmacy dose Breathing treatment Monitor vital signs Monitor CBC Monitor CMP DVT ppx: on heparin GI ppx: famotidine Froy Jaramillo MD PGY1 Internal Medicine Objective - Vital Signs Vital signs: Vital Signs Temp 98.2 F 11/01/24 03:05 Pulse 69 11/01/24 08:24 Resp 19 11/01/24 03:05 BP 96/57 11/01/24 03:05 Pulse Ox 98 11/01/24 08:17 FiO2 Intake & Output 10/31/24 11/01/24 11/01/24 18:59 06:59 18:59 Intake Total 1980.873 169.127 240 Output Total 300 200 Balance 1680.873 -30.873 240 Weight 78.5 kg Intake: IV 20 20 Invasive Line 2 20 20 Intake, IV Titration 800.873 149.127 Amount Azithromycin 500 mg In 500 Sodium Chloride 0.9% 250 ml @ 250 mls/hr IVPB DAILY [facility] Rx#:[id number] Cefepime 2 gm In Sodium 200 Chloride 0.9% 100 ml @ 25 mls/hr IVPB Q12HR [facility] Rx #:[id number] Heparin Sod,Pork in 0.45% 100.873 149.127 NaCl 25,000 unit In 0.45 % NaCl 1 250ml.bag @ 11. 962 UNITS/KG/HR 10 mls/hr IV .Q24H [facility] Rx#: [id number] Oral 1160 240 Output: Urine 300 200 Other: Voiding Method External Catheter External Catheter - Labs CBC & Chem 7: 11/01/24 06:23 11/01/24 06:23 Labs: Abnormal Lab Results - Last 24 Hours (Table) 10/31/24 10/31/24 10/31/24 Range/Units 11:31 14:00 16:36 RBC (4.40-5.60) 10*6/uL Hgb (13.0-17.0) g/dL Hct (39.6-50.0) % MCHC (32.0-37.0) g/dL Plt Count (140-440) 10*3/uL MPV (9.5-12.2) fL APTT 35.6 H (22.0-30.0) sec Chloride (98-107) mmol/L Carbon Dioxide (22-30) mmol/L BUN (9-20) mg/dL Creatinine (0.66-1.25) mg/dL Glucose (74-99) mg/dL POC Glucose (mg/dL) 163 H 197 H (70-110) mg/dL Calcium (8.4-10.2) mg/dL 10/31/24 10/31/24 11/01/24 Range/Units 20:04 22:20 06:02 RBC (4.40-5.60) 10*6/uL Hgb (13.0-17.0) g/dL Hct (39.6-50.0) % MCHC (32.0-37.0) g/dL Plt Count (140-440) 10*3/uL MPV (9.5-12.2) fL APTT 43.1 H (22.0-30.0) sec Chloride (98-107) mmol/L Carbon Dioxide (22-30) mmol/L BUN (9-20) mg/dL Creatinine (0.66-1.25) mg/dL Glucose (74-99) mg/dL POC Glucose (mg/dL) 253 H 134 H (70-110) mg/dL Calcium (8.4-10.2) mg/dL 11/01/24 11/01/24 Range/Units 06:23 06:23 RBC 2.77 L (4.40-5.60) 10*6/uL Hgb 8.1 L (13.0-17.0) g/dL Hct 25.8 L (39.6-50.0) % MCHC 31.4 L (32.0-37.0) g/dL Plt Count 136 L (140-440) 10*3/uL MPV 12.7 H (9.5-12.2) fL APTT (22.0-30.0) sec Chloride 112 H (98-107) mmol/L Carbon Dioxide 21 L (22-30) mmol/L BUN 27 H (9-20) mg/dL Creatinine 1.27 H (0.66-1.25) mg/dL Glucose 111 H (74-99) mg/dL POC Glucose (mg/dL) (70-110) mg/dL Calcium 7.7 L (8.4-10.2) mg/dL Microbiology - Last 24 Hours (Table) 10/29/24 10:17 Blood Culture - Preliminary Blood
[2024-11-01 16:15] LABS: Glucose,Whole Blood 168 mg/dL (70-110)
--- NOTE | 2024-11-01 18:13 | CA ---
Transthoracic Echo Report Name: Ludwin Golden Age: 79 Gender: M : 1945 Exam Date: 11/01/2024 10:03 Exam Location: [facility] Ht (in): 69 Wt (lb): 184 Ordering Physician: Suzanne Flores Attending/Referring Phys: [id number], Mark Pcu Rn Mela Harper RDCS Procedure CPT: Indications: lvf, NSTEMI Cardiac Hx: Technical Quality: Fair Contrast 1: Total Dose (mL): Contrast 2: Total Dose (mL): MEASUREMENTS (Male / Female) Normal Values 2D ECHO LV Diastolic Volume MOD BP 85.4 cm??? 67 - 155 / 56 - 104 cm??? LV Systolic Volume MOD BP 38.0 cm??? 22 - 58 / 19 - 49 cm??? LV Ejection Fraction MOD BP 55.5 % >= 55 % LV Cardiac Index MOD BP 1237.7 cm???/min???m??? LV Diastolic Volume MOD 4C 130.0 cm??? LV Systolic Volume MOD 4C 46.8 cm??? LV Ejection Fraction MOD 4C 64.0 % LV Cardiac Index MOD 4C 2169.9 cm???/min???m??? LV Diastolic Length 4C 7.3 cm LV Systolic Length 4C 5.9 cm LV Diastolic Volume MOD 2C 55.1 cm??? LV Systolic Volume MOD 2C 31.7 cm??? LV Ejection Fraction MOD 2C 42.5 % LV Cardiac Index MOD 2C 611.2 cm???/min???m??? LV Diastolic Length 2C 7.6 cm LV Systolic Length 2C 5.6 cm DOPPLER AV Peak Velocity 308.7 cm/s AV Peak Gradient 38.1 mmHg AV Mean Velocity 227.7 cm/s AV Mean Gradient 23.1 mmHg AV Velocity Time Integral 69.3 cm TR Peak Velocity 245.7 cm/s TR Peak Gradient 24.2 mmHg Right Ventricular Systolic Press 29.2 mmHg FINDINGS Left Ventricle Left ventricular ejection fraction is estimated at 50-55 %. No obvious regional wall motion abnormalities. Right Ventricle Right Atrium Left Atrium Mitral Valve Structurally normal mitral valve. No evidence for mitral valve prolapse. No mitral stenosis. Trace mitral regurgitation. Aortic Valve Trileaflet aortic valve. Aortic valve sclerosis. Moderate aortic stenosis with a peak gradient of 38 mmHg and a mean gradient of 23 mmHg. Tricuspid Valve Mild tricuspid regurgitation. Pulmonic Valve Pulmonic valve not well visualized. Pericardium No pericardial effusion. Aorta CONCLUSIONS Reason: Non-Q wave CT Normal LV size and function ejection fraction 55% Mild aortic stenosis, calcific Previewed by: Dr. Brice Collins MD (Electronically Signed) Final Date: 01 November 2024 18:12
[2024-11-01 20:09] LABS: Glucose,Whole Blood 169 mg/dL (70-110)
[2024-11-02 06:08] LABS: Glucose,Whole Blood 144 mg/dL (70-110)
[2024-11-02] MEDS ORDERED: HEPARIN SODIUM,PORCINE 10,000 UNIT in SODIUM CHLORIDE 0.9% 1,000 ML IRRIGATION PRN (07:00)
[2024-11-02] MEDS ORDERED: HEPARIN SODIUM,PORCINE (1 ML) 2,500 UNIT in SODIUM CHLORIDE 0.9% 250 ML IRRIGATION PRN (07:00)
[2024-11-02 07:16] LABS: Basophils # (A) 0.01 10*3/uL (0.00-0.10); Basophils % (A) 0.2 %; Eosinophils # (A) 0.03 10*3/uL (0.04-0.35); Eosinophils % (A) 0.5 %; HCT 27.5 % (39.6-50.0); HGB 8.8 g/dL (13.0-17.0); Lymphocytes # (A) 0.81 10*3/uL (0.90-5.00); Lymphocytes % (A) 13.6 %; MCH 29.8 pg (27.0-32.0); MCHC 32.0 g/dL (32.0-37.0); MCV 93.2 fL (80.0-97.0); Monocytes # (A) 0.25 10*3/uL (0.20-1.00); Monocytes % (A) 4.2 %; Neutrophils # (A) 4.81 10*3/uL (1.80-7.70); Neutrophils % (A) 80.8 %; Platelet Count 138 10*3/uL (140-440); RBC 2.95 10*6/uL (4.40-5.60); RDW 16.8 % (11.5-14.5); WBC 5.95 10*3/uL (4.50-10.00)
[2024-11-02 08:16] LABS: ALT 64 U/L (4-49); AST 27 U/L (17-59); African American GFR (CKD) 76 (>60 ml/min/1.73 sqM); Albumin 2.4 g/dL (3.5-5.0); Alkaline Phosphatase 91 U/L (38-126); Anion Gap 7 mmol/L; Blood Urea Nitrogen 20 mg/dL (9-20); Calcium 8.3 mg/dL (8.4-10.2); Carbon Dioxide 19 mmol/L (22-30); Chloride 113 mmol/L (98-107); Glucose 130 mg/dL (74-99); Non-African American GFR(CKD) 65 (>60 ml/min/1.73 sqM); Potassium 4.5 mmol/L (3.5-5.1); Sodium 139 mmol/L (137-145); Total Protein 4.7 g/dL (6.3-8.2)
[2024-11-02] MEDS: ASPIRIN 325 MG TAB PO ONE (08:49)
[2024-11-02] MEDS: ATORVASTATIN 80 MG TAB PO ONE (08:49)
[2024-11-02] MEDS: ASPIRIN 81 MG PO SCH (08:50)
[2024-11-02 11:25] LABS: Glucose,Whole Blood 114 mg/dL (70-110)
[2024-11-02] MEDS: fentaNYL (PF) 50 MCG/1 ML VIAL IVP ONE (12:14)
[2024-11-02] MEDS: IV FLUID CONTINUATION 1,000 ML IV ONE ×2 (12:14→13:10)
[2024-11-02] MEDS: MIDAZOLAM 2 MG/2 ML VIAL IVP ONE ×2 (12:14→12:17)
[2024-11-02] MEDS: BENZOCAINE SPRAY 1 EACH MM ONE ×2 (12:15→12:16)
--- NOTE | 2024-11-02 12:36 | P.PCN ---
Date of Procedure: 11/02/24 Description of Procedure: Indication: Aortic stenosis Procedure Description: After explaining the procedure to the patient, it's risk and complications, blood pressure, heart rate and O2 saturation were monitored. The throat was sprayed with Cetacaine. Patient received 3 mg intravenous Versed, 50 mcg intra venous fentanyl. The probe was introduced into the esophagus without difficulty. Images were obtained. Following that, the probe was removed. There was no immediate complication. Findings: Left atrial size is mildly dilated, left atrial appendage is normal. Left ventricular size and systolic function are normal. The aortic valve is tricuspid valve, heavily calcified with decreased opening. Mitral annulus calcification was noted. The tricuspid valve appears to be normal. Descending thoracic aorta shows moderate atherosclerotic changes. No pericardial effusion was noted. Contrast bubble study revealed no shunting across the interatrial septum. Doppler: Pulse wave and color Doppler were obtained, and revealed moderate mitral with mild aortic regurgitation and tricuspid regurgitation. The peak gradient across the aortic valve was 39 mmHg with a mean of 20 mmHg. There was no shunting by color Doppler study. Conclusion: 1. Normal ventricular size and systolic function 2. Moderate mitral regurgitation and mild tricuspid regurgitation 3. Moderate aortic stenosis with a mean gradient of 20 mmHg, heavily calcified with mild aortic regurgitation 4. Calcified ascending thoracic aorta 5. No shunting across the interatrial septum Duration of sedation: 15 minutes
[2024-11-02] MEDS: LIDOCAINE 2% (PF) 20 MG/ML 5 ML VIAL SQ ONE (12:42)
[2024-11-02] MEDS: VERAPAMIL 2.5 MG/ML 4 ML VIAL INTRAARTER ONE (12:43)
[2024-11-02] MEDS: HEPARIN SODIUM 1,000 UN/ML (10ML VL) IVP ONE (12:46)
--- NOTE | 2024-11-02 12:47 | P.PN ---
Subjective Progress Note Date: 11/02/24 Principal diagnosis: Respiratory failure. This is a 79-year-old male patient with a known history of chronic obstructive pulmonary disease, oxygen dependent, paroxysmal atrial fibrillation anticoagulated with Eliquis, severe aortic stenosis, diabetes mellitus, with recent frequent admissions. He was discharged on October 26, 2024. He was brought back to the hospital yesterday October 29, 2024 after sustaining a fall at home at approximately 2:00 in the morning. He is unsure if he tripped and fell or if he passed out. He laid on the ground for 6 hours until a neighbor came by to help him up. He was too weak to stand and EMS was called. He denied any chest pain. No worsening shortness of breath, cough or congestion. No abdominal pain, nausea vomiting or diarrhea. EKG revealed sinus tachycardia. Chest x-ray revealed no discrete consolidative changes. There is cardiomegaly and pulmonary vascular congestion with bilateral pleural effusions. White count 11.2. Hemoglobin 9.2. Platelets 148. Sodium 138. Potassium 4.3. Bicarb 22. BUN 47. Creatinine 1.34. Troponin 0.124, 0.158. proBNP 5890. He is seen today in consultation in the emergency department. He is currently sitting up on a stretcher. Awake and alert oriented x 3. Unclear about what happened to him prior to being on the kitchen floor. He is currently maintaining good O2 saturation in the upper 90s on 3 L/min per nasal cannula. He is afebrile. Hemodynamically stable. Currently in sinus rhythm. Patient was seen today on 10/31/2024, breathing better easier, not in distress, and again the findings on his chest x-ray are consistent with inflammatory changes, patient is recovering from recent pneumonia involving the right lower lobe. Patient did not get readmitted because of pneumonia, his chief complaint was a complaint of passing out episode, and we believe that the passing of episo de is most likely cardiac in nature related to his aortic stenosis, cardiology has seen the patient, and addressing this issue may have to be considered for cardiac catheterization and for eventually TAVR procedure. Patient is back on his usual bronchodilators, he is empirically on antibiotics, however considering his procalcitonin level is elevated, will recommend that we continue antibiotics for now. His WBC count today is normal came down from 16.09 down to 7.36 today. Electrolytes are normal BUN is 37 creatinine 1.36, came down from 1.71 on admission Progress note dated November 01, 2024. The patient was seen today in room 360. He continues on nasal O2 at 3 L. He also has IV heparin running. The patient is awake and alert. No acute distress. No respiratory distress. He can speak in full sentences. The patient has had multiple admissions to this hospital in recent weeks. Current laboratory data includes a white count of 6.03, hemoglobin 8.1, hematocrit 25.8, and a platelet count of 136,000. Sodium 139, potassium 4, chlorides 112, CO2 21, BUN 27, creatinine 1.27. Glucose is 252. Calcium is 7.7. Progress note dated November 02, 2024. 79-year-old male, seen today in room 360. The patient is scheduled to have a left heart catheterization, and transesophageal echocardiogram today. He is on 2 L of oxygen. He is not receiving any IV fluids. Earlier today, he was on heparin, IV. His creatinine has corrected, and is down to 1.08. The patient is sitting at the side of the bed. He is awake and alert. No acute distress. White count is 5.9, hemoglobin 8.8, hematocrit 27.5, platelet count 138,000. PTT is 49.7. Sodium 139, potassium 4.5, chlorides 113, CO2 19, anion gap 7, BUN 20, creatinine 1.08. Glucose is 114. Calcium 8.3. Albumin 2.4. No recent chest x-ray to report. Culture data is all negative. Objective - Vital Signs Vital signs: Vital Signs Temp 97.4 F L 11/02/24 07:38 Pulse 85 11/02/24 09:00 Resp 20 11/02/24 09:00 BP 109/70 11/02/24 07:38 Pulse Ox 99 11/02/24 08:41 FiO2 Intake & Output 11/01/24 11/02/24 11/02/24 18:59 06:59 18:59 Intake Total 1030 295.574 10 Output Total 425 900 250 Balance 605 -604.426 -240 Weight 78.5 kg 81.8 kg Intake: IV 20 20 10 Invasive Line 2 20 20 10 Intake, IV Titration 275.574 Amount Heparin Sod,Pork in 0.45% 275.574 NaCl 25,000 unit In 0.45 % NaCl 1 250ml.bag @ 11. 962 UNITS/KG/HR 10 mls/hr IV .Q24H [facility] Rx#: [id number] Oral 1010 Output: Urine 425 900 250 Other: Voiding Method Urinal Urinal Urinal # Bowel Movements 1 - Exam No acute distress, oriented 3. Currently on 2 L of oxygen. HEENT examination is grossly unremarkable. Mucous membranes are moist. No oral lesions. Neck supple. Full range of motion. No adenopathy thyromegaly or neck vein distention. Cardiovascular examination reveals regular rhythm rate. S1-S2 normal. No S3 or S4. A 3/6 systolic murmur is noted. Lungs reveal scattered bilateral rhonchi and crackles. No wheezes. Breath sounds are equal bilaterally. Abdomen soft bowel sounds are heard. No masses or tenderness. Extremities are intact. No cyanosis or clubbing. Mild edema is present. Skin is without rash or lesion. Neurologic examination is brief but nonfocal. - Labs CBC & Chem 7: 11/02/24 06:51 11/02/24 06:51 Labs: Abnormal Lab Results - Last 24 Hours (Table) 11/01/24 11/01/24 11/01/24 Range/Units 16:14 20:06 23:06 RBC (4.40-5.60) 10*6/uL Hgb (13.0-17.0) g/dL Hct (39.6-50.0) % Plt Count (140-440) 10*3/uL Lymphocytes # (0.90-5.00) 10*3/uL Eosinophils # (0.04-0.35) 10*3/uL APTT 33.5 H (22.0-30.0) sec Chloride (98-107) mmol/L Carbon Dioxide (22-30) mmol/L Glucose (74-99) mg/dL POC Glucose (mg/dL) 168 H 169 H (70-110) mg/dL Calcium (8.4-10.2) mg/dL ALT (4-49) U/L Total Protein (6.3-8.2) g/dL Albumin (3.5-5.0) g/dL 11/02/24 11/02/24 11/02/24 Range/Units 06:06 06:51 06:51 RBC 2.95 L (4.40-5.60) 10*6/uL Hgb 8.8 L (13.0-17.0) g/dL Hct 27.5 L (39.6-50.0) % Plt Count 138 L (140-440) 10*3/uL Lymphocytes # 0.81 L (0.90-5.00) 10*3/uL Eosinophils # 0.03 L (0.04-0.35) 10*3/uL APTT (22.0-30.0) sec Chloride 113 H (98-107) mmol/L Carbon Dioxide 19 L (22-30) mmol/L Glucose 130 H (74-99) mg/dL POC Glucose (mg/dL) 144 H (70-110) mg/dL Calcium 8.3 L (8.4-10.2) mg/dL ALT 64 H (4-49) U/L Total Protein 4.7 L (6.3-8.2) g/dL Albumin 2.4 L (3.5-5.0) g/dL 11/02/24 11/02/24 Range/Units 06:51 11:23 RBC (4.40-5.60) 10*6/uL Hgb (13.0-17.0) g/dL Hct (39.6-50.0) % Plt Count (140-440) 10*3/uL Lymphocytes # (0.90-5.00) 10*3/uL Eosinophils # (0.04-0.35) 10*3/uL APTT 49.7 H (22.0-30.0) sec Chloride (98-107) mmol/L Carbon Dioxide (22-30) mmol/L Glucose (74-99) mg/dL POC Glucose (mg/dL) 114 H (70-110) mg/dL Calcium (8.4-10.2) mg/dL ALT (4-49) U/L Total Protein (6.3-8.2) g/dL Albumin (3.5-5.0) g/dL Microbiology - Last 24 Hours (Table) 10/29/24 10:17 Blood Culture - Preliminary Blood Assessment and Plan Assessment: Fall, with possible syncopal episode. Severe aortic stenosis, currently being evaluated by cardiology. Acute kidney injury. Right lower lobe pneumonia. Anemia, chronic. Acute on chronic diastolic CHF. Acute on chronic hypoxemic respiratory failure, secondary to her pneumonia. Recent hospitalizations for pneumonia, secondary to stenotrophomonas and Serratia. Paroxysmal atrial fibrillation. Severe oxygen dependent and steroid-dependent COPD, with an FEV1 that is 30% of predicted. Chronic hypoxemic respiratory failure. Former heavy tobacco user. Hyperlipidemia. Plan: Plan dated November 01, 2024. The patient continues on supportive care, including, oxygen, heparin, updrafts, Symbicort, antibiotics, etc. All labs, x-rays, and medications are reviewed. We will continue to follow the patient, make recommendations along the way. Overall prognosis remains guarded. The patient remains a full code. He is being followed by cardiology, for his aortic stenosis. Certainly, given the severity of his COPD, he would be a high risk patient. We will continue to follow. Dictation was produced using [employer] software. Please excuse any grammatical, word or spelling errors. Plan dated November 02, 2024. The patient is seen today in room 360. He continues on nasal O2 at 2 L. He was on IV heparin. The patient is scheduled for left heart catheterization, and transesophageal echocardiogram today. Cardiology is currently evaluating his aortic stenosis. The patient is doing relatively well. He is sitting at the side of the bed. He is awake and alert. He has no specific complaints. All labs, x-rays, and medications are reviewed. We will continue to follow the patient, make recommendations along the way. Prognosis is guarded. Dictation was produced using [employer] software. Please excuse any grammatical, word or spelling errors. Time with Patient: Less than 30
[2024-11-02] MEDS ORDERED: RX INFO: IV CONTRAST WAS GIVEN 1 EACH MISC MISCELLANE PRN (13:04)
[2024-11-02] MEDS: IOPAMIDOL-300 100ML BTL INJ ONE (13:09)
--- NOTE | 2024-11-02 13:13 | P.CARDCATH ---
Date of Procedure: 11/02/24 Description of Procedure: Cardiac Catheterization: The patient is a 79-year-old male with a history of hypertension, hyperlipidemia and diabetes as well as a history of aortic stenosis who presented with progressive dyspnea, possible syncope and mild troponin elevation. He was evaluated by Dr. Rosa. Recommendations were made regarding cardiac catheterization, the risks and the complications were discussed with the patient who is in full understanding and agreement. Procedure Description: Patient was brought to equipment operator/laborer/supervisor in fasting semi-sedated state after receiving Fentanyl and Benadryl achieiving moderate conscious sedated state. Using Xylocaine Anesthesia and modified Seldinger technique, a 6-Divehi sheath was introduced in the right radial artery . Subsequently, selective coronary angiography was performed using a 5-Divehi 3.5 bend Elliott catheter. Multiple views of the coronary artery including hemiaxial views were obtained. The right Elliott catheter was used to cross the aortic valve and LVEDP was calculated. Following that, catheter and sheath were removed. Hemostasis was obtained with deployment of vascular band . There was no immediate complication. Patient was returned to room in stable condition. Of note, the patient received a total of 4500 units of intravenous heparin as well as intra-arterial verapamil. Findings: Fluoroscopy: Calcification of the left main and aortic valve was noted Left main: This is a large size vessel, bifurcating into LAD and left circumf jac, left main has no obstructive disease LAD: This is a large size vessel, reaching to the apex, giving rise to a large proximal diagonal branch. The LAD in the midsegment has mild intimal disease of 10 to 20% with no high-grade stenosis Left circumflex: This is a large dominant vessel, giving rise to a proximal large obtuse marginal branch the second obtuse marginal branch is small in caliber. Distally bifurcating to PDA and PLV the left circumflex has no evidence of high-grade stenosis RCA: This is a small nondominant vessel that has no evidence of obstructive disease Left Ventriculogram: Not performed Hemodynamics: There was a 20 mmHg gradient across the aortic valve, peak to peak, LVEDP was 14-18 mmHg Conclusion: 1. Calcified aortic valve and left main 2. Mild disease in the LAD 3. Mild to moderate aortic stenosis 4. Left dominance Recommendations: At this time I see no evidence of significant obstructive disease in the aortic valve is not significant to be causing his symptoms, I will continue optimizing his medical therapy, his dyspnea on exertion could have an element of CHF with preserved systolic function in addition to his baseline pulmonary status and recent pneumonia. The findings and the recommendations were discussed with the patient and the family and they were in full understanding and agreement. Duration of sedation is 14 minutes.
[2024-11-02] MEDS: SODIUM CHLORIDE 0.9% 1,000 ML IV SCH (13:24)
--- NOTE | 2024-11-02 14:27 | P.PN ---
Subjective Progress Note Date: 11/01/24 History of present illness: This is a 79-year-old male patient of Dr. Hansen with past medical history of paroxysmal atrial fibrillation on Eliquis, moderate to severe aortic stenosis, diabetes mellitus type 2, severe COPD, chronic hypoxic respiratory failure on home O2. We have been asked to evaluate the patient for elevated troponin. Patient had a recent hospitalization from . Patient was seen by cardiology at that time but patient presented with severe sepsis with pneumonia, acute on chronic hypoxic respiratory failure, COPD. On this occasion, patient presented to the hospital and had a fall on the floor around 2 AM and laid on the floor for 7 hours until his daughter came and found him. He states he did have a fever yesterday and his blood pressure was low yesterday. He denies any fever or chills now. He states he has a little cough. He does lower extremity edema. He complains of fatigue. Blood pressure 115/62, heart rate 60s and 70s, pulse ox 98% on 3 L nasal cannula. Patient is seen today in the emergency center waiting for a bed on the cardiac stepdown unit. Patient has been started on IV antibiotics, home medications and is status. -EKG: Sinus with nonspecific changes, mild ST elevation but does not meet criteria for acute ST [facility] -Chest x-ray: No consolidation. Cardiomegaly. Pulmonary vascular congestion and bilateral pleural effusions. #2 right lower lobe airspace opacities. Cardiomegaly, pulmonary vascular congestion or right pleural effusions. -Laboratory studies: WBC 11.2, hemoglobin 9.2. Sodium 133, BUN 49, initial creatinine 1.71 and repeat 1.34. Troponins 0.391 and 0.124. C-reactive protein 20.3. proBNP 5890. C. difficile toxin negative. Legionella antigen negative. CK 68. -Home cardiac medications: Amiodarone 100 mg daily, Eliquis 5 mg twice daily, atorvastatin 40 mg at bedtime, Jardiance 10 mg daily, Lasix 40 mg daily, Lopres sor 12.5 mg twice daily, also on ferrous sulfate. -Echocardiogram performed 10/16/2024 revealed EF 55 to 60%, moderate concentric LVH, normal RV size and systolic function, mild left atrial dilatation. Severe aortic stenosis with mean gradient of 40. Tricuspid regurgitation. RVSP 32 mmHg. 10/31/2024 Patient seen and examined on the cardiac stepdown unit. He denies chest pain. He states his shortness of breath is about the same as yesterday. Blood pressure 93/55, heart rate 86, pulse ox 93% on 3 L nasal cannula. Repeat blood work reveals BUN 37, creatinine 1.36, hemoglobin 8.6 and platelet count 138. Patient remains on a heparin drip. Dr. Rosa discussed with the patient recommendations for cardiac catheterization and patient is agreeable to move forward with this. Yesterday, we started patient on heparin drip and gave him 1 dose of IV Lasix. Third troponin was 0.158. 11/01/2024 Seen and examined at bedside this a.m. He was supposed to get a heart catheterization and TONY done however because of scheduling conflicts it could not be done today. He will be planned to have the procedure done tomorrow. He is otherwise doing well from cardiovascular standpoint. Limited 2D e chocardiogram showed an EF of 55%, trileaflet aortic valve with calcification with moderate aortic stenosis with mean gradient of 23 mmHg, mild aortic regurgitation. Physical examination: HEENT: Head is atraumatic, normocephalic. Pupils equal, round. Sclerae is anicteric. NECK: Supple. No JVD. LUNGS: Diminished breath sounds. No intercostal retractions. HEART: Regular rate and rhythm. Systolic murmur. ABDOMEN: Soft No tenderness. EXTREMITIES: No pedal edema. No calf tenderness. NEUROLOGICAL: Patient is awake, alert and oriented x3. Assessment: Fall at home and on floor for 7 hours, rhabdomyolysis ruled out Acute kidney injury secondary to hypotension Possible sepsis NSTEMI possibly due to fall and acute kidney injury with known underlying CAD, cannot completely rule out acute event Paroxysmal atrial fibrillation on Eliquis at home Severe aortic stenosis Anemia Diabetes mellitus type 2 Severe COPD Chronic hypoxic respiratory failure on home O2 Plan: Continue current cardiac medications: Amiodarone 100 mg daily, aspirin 81 mg daily, atorvastatin 40 mg at bedtime, metoprolol tartrate 12.5 mg twice daily Continue patient on heparin drip Schedule patient for cardiac catheterization on Friday with Dr. Hansen. Repeat BMP in the morning. N.p.o. after midnight Regarding severe , patient will need evaluation for TAVR which will include cardiac catheterization. Further recommendations to follow based upon clinical course Objective - Vital Signs Vital signs: Vital Signs Temp 97.4 F L 11/02/24 07:38 Pulse 79 11/02/24 13:49 Resp 20 11/02/24 13:49 BP 124/69 11/02/24 13:49 Pulse Ox 100 11/02/24 13:49 FiO2 Intake & Output 11/01/24 11/02/24 11/02/24 18:59 06:59 18:59 Intake Total 1030 295.574 220 Output Total 425 900 250 Balance 605 -604.426 -30 Weight 78.5 kg 81.8 kg Intake: IV 20 20 220 Invasive Line 2 20 20 20 Intake, IV Titration 275.574 Amount Heparin Sod,Pork in 0.45% 275.574 NaCl 25,000 unit In 0.45 % NaCl 1 250ml.bag @ 11. 962 UNITS/KG/HR 10 mls/hr IV .Q24H [facility] Rx#: [id number] Oral 1010 Output: Urine 425 900 250 Other: Voiding Method Urinal Urinal Urinal # Bowel Movements 1 - Labs CBC & Chem 7: 11/02/24 06:51 11/02/24 06:51 Labs: Abnormal Lab Results - Last 24 Hours (Table) 11/01/24 11/01/24 11/01/24 Range/Units 16:14 20:06 23:06 RBC (4.40-5.60) 10*6/uL Hgb (13.0-17.0) g/dL Hct (39.6-50.0) % Plt Count (140-440) 10*3/uL Lymphocytes # (0.90-5.00) 10*3/uL Eosinophils # (0.04-0.35) 10*3/uL APTT 33.5 H (22.0-30.0) sec Chloride (98-107) mmol/L Carbon Dioxide (22-30) mmol/L Glucose (74-99) mg/dL POC Glucose (mg/dL) 168 H 169 H (70-110) mg/dL Calcium (8.4-10.2) mg/dL ALT (4-49) U/L Total Protein (6.3-8.2) g/dL Albumin (3.5-5.0) g/dL 07/08/25 07/08/25 07/08/25 Range/Units 06:06 06:51 06:51 RBC 2.95 L (4.40-5.60) 10*6/uL Hgb 8.8 L (13.0-17.0) g/dL Hct 27.5 L (39.6-50.0) % Plt Count 138 L (140-440) 10*3/uL Lymphocytes # 0.81 L (0.90-5.00) 10*3/uL Eosinophils # 0.03 L (0.04-0.35) 10*3/uL APTT (22.0-30.0) sec Chloride 113 H (98-107) mmol/L Carbon Dioxide 19 L (22-30) mmol/L Glucose 130 H (74-99) mg/dL POC Glucose (mg/dL) 144 H (70-110) mg/dL Calcium 8.3 L (8.4-10.2) mg/dL ALT 64 H (4-49) U/L Total Protein 4.7 L (6.3-8.2) g/dL Albumin 2.4 L (3.5-5.0) g/dL 11/02/24 11/02/24 Range/Units 06:51 11:23 RBC (4.40-5.60) 10*6/uL Hgb (13.0-17.0) g/dL Hct (39.6-50.0) % Plt Count (140-440) 10*3/uL Lymphocytes # (0.90-5.00) 10*3/uL Eosinophils # (0.04-0.35) 10*3/uL APTT 49.7 H (22.0-30.0) sec Chloride (98-107) mmol/L Carbon Dioxide (22-30) mmol/L Glucose (74-99) mg/dL POC Glucose (mg/dL) 114 H (70-110) mg/dL Calcium (8.4-10.2) mg/dL ALT (4-49) U/L Total Protein (6.3-8.2) g/dL Albumin (3.5-5.0) g/dL Microbiology - Last 24 Hours (Table) 10/29/24 10:17 Blood Culture - Preliminary Blood
--- NOTE | 2024-11-02 14:35 | P.PN ---
Subjective Subjective: 79-year-old male patient with a known history of atrial fibrillation, anticoagulated with Eliquis diabetes mellitus, hyperlipidemia, oxygen dependent chronic obstructive pulmonary disease who presents the hospital because of shortness of breath. Patient was discharged last week after being admitted for shortness of breath, was being treated for pneumonia, had bronchoscopy with lavage done that was positive for stenotrophomonas and was discharged on Bactrim. Patient stated he was doing well for the first couple of days after his discharge but on Friday he had a fall, stated that his legs gave up and he ended up on the floor. Patient was laying on the floor for 6 hours, had to call neighbor for help. Patient did not had any loss of consciousness. Following the fall patient was complaining of back pain, daughter came to check on him. Daughter noted that the patient was getting more weak and had a hard time ambulating. Patient was complaining of shortness of breath. There was no complaint of chest pain. Patient denies any palpitation. There is no complaint of orthopnea or PND. Denies any nausea, vomiting abdominal pain. Patient denies any complaint of dizziness. There is no complaint of headache. Patient is complaining of abdominal distention and swelling of lower extremities. Because of shortness of breath and increasing weakness, patient brought the ER Initial lab work done in the ER showed WBC 16.09, hemoglobin 8, platelet count 156, sodium 133, potassium 4.9, BUN 14, creatinine 1.71, glucose 232, lactate 1.9 AST 27, ALT 51, UA done showed urine WBC 42, leukocyte esterase moderate amount, urine nitrate negative. EKG done in the ER showed heart rate of 110, no ST segment elevation or depression seen, no T-wave inversions seen. Chest x-ray done in the ER showed no discrete consolidation changes, cardiomegaly, pulm congestion and bilateral pleural effusions. Patient admitted to internal med [facility]. 10/30. Patient seen and examined. Patient was sitting upright in the chair. States breathing has improved. States he used peeing a lot. Still states he gets short of breath on exertion. labs reviewed showing WBC 11.22, hemoglobin 9.2, sodium 139 potassium 4.3, BUN 47, creatinine 1.34, troponin 0.124. 10/31/2024 Patient is still having some cough patient is afebrile, patient white count is coming down patient's previous sputum cultures were positive for stenotrophomonas. The cultures before that were positive for ischemia and Serratia. Patient is presently on cefepime treating for Serratia and dyspnea and stenotrophomonas is considered as a colonizer. Patient was on Bactrim which resulted in acute renal failure. Patient is presently off Bactrim presently on cefepime awaiting sputum cultures from this hospitalization patient had low- grade fever on admission. Patient also had elevated troponins and will need a TAVR as well. Patient's creatinine improved close to his baseline of 1.2 presently 1.3. Patient will undergo cardiac catheterization tomorrow. Patient was also on Lasix for heart failure with preserved ejection fraction related presently Lasix is being held. 11/01. patient seen and examined at bedside. Patient was sitting upright in the chair. Not in distress states he feels better. Afebrile. SPO2 98 on 3 L of oxygen. Awaiting cardiac catheterization procedure. On IV heparin drip. His WBC count today remains normal. No significant overnight events. 11/02. Patient seen and examined at bedside. Patient laying comfortably. Alert and oriented x 3. Not in distress and states he is feeling much better. Reported sleeping well last night. Denied chest pain and shortness of breath. cardiac catheterization being done today. Vitally stable on 3 L of oxygen with a SpO2 of 100%. No significant overnight events. Pertinent positives and negatives discussed above, a complete review of systems was preformed and all the other systems were negative. Vitals Signs Reviewed. GENERAL EXAM: Alert, pleasant 79-year-old male, on 3L nasal cannula and O2 sat is 100% HEAD: Normocephalic. EYES: Normal reaction of pupils, equal size. NOSE: Clear with pink turbinates. THROAT: No erythema or exudates. NECK: No masses, no JVD. CHEST: No chest wall deformity. LUNGS: Diminished breath sounds CVS: S1 and S2 normal with 3/6 systolic murmur over the aortic area ABDOMEN: Soft, No tenderness SKIN: No rashes CENTRAL NERVOUS SYSTEM: No focal deficits, tone is normal in all 4 extremities. EXTREMITIES: There is 1+ pedal edema, slightly better than yesterday. No clubbing, no cyanosis. Peripheral pulses are intact. Data Reveiwed Today: 11/02/2024 Patient Labs: WBC 5.95, Hb 8.8, sodium 139, potassium 4.5, creatinine 1.08, proBNP 5890 (10/29), procalcitonin 1.23 (10/30). Imaging: EKG-LV normal size, ejection fraction 55%. Mild aortic stenosis, calcific. CXR -right lower lobe airspace opacities not significantly changed. Cardiomegaly, pulmonary vascular congestion with pleural effusions. Correlate with BNP for congestive heart failure. Assessment and plan Pneumonia recurrent, multiple organisms in the previous sputum cultures he is presently on cefepime. Acute renal failure secondary to Bactrim improved after discontinuation of Bactrim presently at his baseline Acute non-ST elevation myocardial infarction cannot rule out type I NM, patient will undergo cardiac catheterization Fall Generalized weakness Acute on chronic hypoxic respiratory failure Bacterial pneumonia, recent bronchial lavage showing stenotrophomonas from last hospitalization History of COPD Moderate to severe aortic stenosis mean gradient 35 mmHg History of paroxysmal atrial fibrillation, currently sinus rhythm Acute on chronic HFpEF Type 2 diabetes -Pending TTE -Continue cefepime (day 5) -Continue telemetry monitoring -Encourage use of incentive spirometer -Strict I's and O's -continue with heparin pharmacy dose -Breathing treatment -Monitor vital signs -Monitor CBC -Monitor CMP DVT ppx: on heparin GI ppx: famotidine Froy Jaramillo MD PGY1 Internal Medicine Objective - Vital Signs Vital signs: Vital Signs Temp 97.4 F L 11/02/24 07:38 Pulse 85 11/02/24 08:38 Resp 20 11/02/24 07:38 BP 109/70 11/02/24 07:38 Pulse Ox 99 11/02/24 08:41 FiO2 Intake & Output 11/01/24 11/02/24 11/02/24 18:59 06:59 18:59 Intake Total 1030 295.574 Output Total 425 900 250 Balance 605 -604.426 -250 Weight 78.5 kg 81.8 kg Intake: IV 20 20 Invasive Line 2 20 20 Intake, IV Titration 275.574 Amount Heparin Sod,Pork in 0.45% 275.574 NaCl 25,000 unit In 0.45 % NaCl 1 250ml.bag @ 11. 962 UNITS/KG/HR 10 mls/hr IV .Q24H [facility] Rx#: [id number] Oral 1010 Output: Urine 425 900 250 Other: Voiding Method Urinal Urinal # Bowel Movements 1 - Labs CBC & Chem 7: 11/02/24 06:51 11/02/24 06:51 Labs: Abnormal Lab Results - Last 24 Hours (Table) 11/01/24 11/01/24 11/01/24 Range/Units 11:34 16:14 20:06 RBC (4.40-5.60) 10*6/uL Hgb (13.0-17.0) g/dL Hct (39.6-50.0) % Plt Count (140-440) 10*3/uL Lymphocytes # (0.90-5.00) 10*3/uL Eosinophils # (0.04-0.35) 10*3/uL APTT (22.0-30.0) sec Chloride (98-107) mmol/L Carbon Dioxide (22-30) mmol/L Glucose (74-99) mg/dL POC Glucose (mg/dL) 252 H 168 H 169 H (70-110) mg/dL Calcium (8.4-10.2) mg/dL ALT (4-49) U/L Total Protein (6.3-8.2) g/dL Albumin (3.5-5.0) g/dL 11/01/24 11/02/24 11/02/24 Range/Units 23:06 06:06 06:51 RBC 2.95 L (4.40-5.60) 10*6/uL Hgb 8.8 L (13.0-17.0) g/dL Hct 27.5 L (39.6-50.0) % Plt Count 138 L (140-440) 10*3/uL Lymphocytes # 0.81 L (0.90-5.00) 10*3/uL Eosinophils # 0.03 L (0.04-0.35) 10*3/uL APTT 33.5 H (22.0-30.0) sec Chloride (98-107) mmol/L Carbon Dioxide (22-30) mmol/L Glucose (74-99) mg/dL POC Glucose (mg/dL) 144 H (70-110) mg/dL Calcium (8.4-10.2) mg/dL ALT (4-49) U/L Total Protein (6.3-8.2) g/dL Albumin (3.5-5.0) g/dL 11/02/24 11/02/24 Range/Units 06:51 06:51 RBC (4.40-5.60) 10*6/uL Hgb (13.0-17.0) g/dL Hct (39.6-50.0) % Plt Count (140-440) 10*3/uL Lymphocytes # (0.90-5.00) 10*3/uL Eosinophils # (0.04-0.35) 10*3/uL APTT 49.7 H (22.0-30.0) sec Chloride 113 H (98-107) mmol/L Carbon Dioxide 19 L (22-30) mmol/L Glucose 130 H (74-99) mg/dL POC Glucose (mg/dL) (70-110) mg/dL Calcium 8.3 L (8.4-10.2) mg/dL ALT 64 H (4-49) U/L Total Protein 4.7 L (6.3-8.2) g/dL Albumin 2.4 L (3.5-5.0) g/dL Microbiology - Last 24 Hours (Table) 10/29/24 10:17 Blood Culture - Preliminary Blood
[2024-11-02 14:49] LABS: African American GFR (CKD) 71 (>60 ml/min/1.73 sqM); Anion Gap 7 mmol/L; Blood Urea Nitrogen 18 mg/dL (9-20); Calcium 8.3 mg/dL (8.4-10.2); Carbon Dioxide 22 mmol/L (22-30); Chloride 111 mmol/L (98-107); Glucose 98 mg/dL (74-99); Non-African American GFR(CKD) 62 (>60 ml/min/1.73 sqM); Potassium 4.5 mmol/L (3.5-5.1); Sodium 140 mmol/L (137-145)
[2024-11-02 16:14] LABS: Glucose,Whole Blood 104 mg/dL (70-110)
--- NOTE | 2024-11-02 16:16 | P.PN ---
Subjective Progress Note Date: 11/01/24 Principal diagnosis: Reason for follow-up is fever Patient is a 79-year-old male with a past medical history significant for COPD atrial fibrillation diabetes mellitus hypertension hyperlipidemia osteoarthritis recent multiple admission to the hospital with pneumonia he did have a bronchoscopy and lavage on 10/21/2024 that was positive for stenotrophomonas discharged on Bactrim now presented the hospital for weakness and did have a follow-up to have low-grade fever and elevated white count prompting this consultation. On today's evaluation that is 11/01/2024, patient has been afebrile, patient is breathing comfortably and is currently on room air, patient denies having any chest pain and cough, patient denies nausea vomiting or diarrhea and no abdominal pain Patient white count is down to 6.03, creatinine is 1.27 Objective - Vital Signs Vital signs: Vital Signs Temp 97.5 F L 11/01/24 08:00 Pulse 88 11/01/24 11:59 Resp 18 11/01/24 08:10 BP 91/60 11/01/24 08:00 Pulse Ox 98 11/01/24 08:17 FiO2 Intake & Output 10/31/24 11/01/24 11/01/24 18:59 06:59 18:59 Intake Total 1980.873 169.127 250 Output Total 300 200 Balance 1680.873 -30.873 250 Weight 78.5 kg Intake: IV 20 20 10 Invasive Line 2 20 20 10 Intake, IV Titration 800.873 149.127 Amount Azithromycin 500 mg In 500 Sodium Chloride 0.9% 250 ml @ 250 mls/hr IVPB DAILY [facility] Rx#:[id number] Cefepime 2 gm In Sodium 200 Chloride 0.9% 100 ml @ 25 mls/hr IVPB Q12HR [facility] Rx #:[id number] Heparin Sod,Pork in 0.45% 100.873 149.127 NaCl 25,000 unit In 0.45 % NaCl 1 250ml.bag @ 11. 962 UNITS/KG/HR 10 mls/hr IV .Q24H [facility] Rx#: [id number] Oral 1160 240 Output: Urine 300 200 Other: Voiding Method External Catheter External Catheter Urinal - Exam GENERAL DESCRIPTION: An elderly male l in a chair in no distress RESPIRATORY SYSTEM: Unlabored breathing , coarse breath sounds at bases HEART: S1 S2 regular rate and rhythm , ABDOMEN: Soft , no tenderness EXTREMITIES: No edema feet - Labs CBC & Chem 7: 11/02/24 06:51 11/02/24 13:53 Labs: Abnormal Lab Results - Last 24 Hours (Table) 10/31/24 10/31/24 10/31/24 Range/Units 14:00 16:36 20:04 RBC (4.40-5.60) 10*6/uL Hgb (13.0-17.0) g/dL Hct (39.6-50.0) % MCHC (32.0-37.0) g/dL Plt Count (140-440) 10*3/uL MPV (9.5-12.2) fL APTT 35.6 H (22.0-30.0) sec Chloride (98-107) mmol/L Carbon Dioxide (22-30) mmol/L BUN (9-20) mg/dL Creatinine (0.66-1.25) mg/dL Glucose (74-99) mg/dL POC Glucose (mg/dL) 197 H 253 H (70-110) mg/dL Calcium (8.4-10.2) mg/dL 10/31/24 11/01/24 11/01/24 Range/Units 22:20 06:02 06:23 RBC 2.77 L (4.40-5.60) 10*6/uL Hgb 8.1 L (13.0-17.0) g/dL Hct 25.8 L (39.6-50.0) % MCHC 31.4 L (32.0-37.0) g/dL Plt Count 136 L (140-440) 10*3/uL MPV 12.7 H (9.5-12.2) fL APTT 43.1 H (22.0-30.0) sec Chloride (98-107) mmol/L Carbon Dioxide (22-30) mmol/L BUN (9-20) mg/dL Creatinine (0.66-1.25) mg/dL Glucose (74-99) mg/dL POC Glucose (mg/dL) 134 H (70-110) mg/dL Calcium (8.4-10.2) mg/dL 11/01/24 11/01/24 Range/Units 06:23 11:34 RBC (4.40-5.60) 10*6/uL Hgb (13.0-17.0) g/dL Hct (39.6-50.0) % MCHC (32.0-37.0) g/dL Plt Count (140-440) 10*3/uL MPV (9.5-12.2) fL APTT (22.0-30.0) sec Chloride 112 H (98-107) mmol/L Carbon Dioxide 21 L (22-30) mmol/L BUN 27 H (9-20) mg/dL Creatinine 1.27 H (0.66-1.25) mg/dL Glucose 111 H (74-99) mg/dL POC Glucose (mg/dL) 252 H (70-110) mg/dL Calcium 7.7 L (8.4-10.2) mg/dL Microbiology - Last 24 Hours (Table) 10/29/24 10:17 Blood Culture - Preliminary Blood Assessment and Plan (1) Leukocytosis Current Visit: Yes Status: Acute Code(s): D72.829 - ELEVATED WHITE BLOOD CELL COUNT, UNSPECIFIED SNOMED Code(s): 800016392 (2) Fever Current Visit: No Status: Acute Code(s): R50.9 - FEVER, UNSPECIFIED SNOMED Code(s): 165459097 (3) Penicillin allergy Current Visit: No Status: Acute Code(s): Z88.0 - ALLERGY STATUS TO PENICILLIN SNOMED Code(s): 24000269 (4) Renal insufficiency Current Visit: No Status: Acute Code(s): N28.9 - DISORDER OF KIDNEY AND URETER, UNSPECIFIED SNOMED Code(s): 483597382 (5) Oral thrush Current Visit: Yes Status: Acute Code(s): B37.0 - CANDIDAL STOMATITIS SNOMED Code(s): 48493988 Plan: 1patient presented hospital with weakness and did have a fall in this patient who was recently discharged from hospital after being treated for COPD his admission and there was concern for pneumonia status post bronchoscopy lavage wa s positive for stenotrophomonas now did have low-grade fever elevated white count chest x-ray has been mostly pulmonary vascular congestion further than consolidation has been complaining of some diarrhea however stool for C. difficile is negative urine is mildly positive with symptoms of frequency 2patient did have elevated procalcitonin and CRP 3 sputum for Gram stain and culture as well as urine culture so far negative 4patient did have improvement in his fever pattern white count has normalized, patient to continue cefepime 5the patient complaining of soreness in the mouth possible thrush we will add nystatin swish and swallow Dictation was produced using [employer] dictation software. please excuse any grammatical, word or spelling errors. Time with Patient: Less than 30
[2024-11-02 19:58] LABS: Glucose,Whole Blood 170 mg/dL (70-110)
[2024-11-02] MEDS: METOPROLOL TARTRATE 25 MG TAB PO SCH (21:14)
[2024-11-03 06:11] LABS: Glucose,Whole Blood 107 mg/dL (70-110)
[2024-11-03 07:10] LABS: ALT 58 U/L (4-49); AST 27 U/L (17-59); African American GFR (CKD) 80 (>60 ml/min/1.73 sqM); Albumin 2.5 g/dL (3.5-5.0); Alkaline Phosphatase 76 U/L (38-126); Anion Gap 6 mmol/L; Blood Urea Nitrogen 15 mg/dL (9-20); Calcium 8.1 mg/dL (8.4-10.2); Carbon Dioxide 22 mmol/L (22-30); Chloride 111 mmol/L (98-107); Glucose 90 mg/dL (74-99); Non-African American GFR(CKD) 70 (>60 ml/min/1.73 sqM); Potassium 4.3 mmol/L (3.5-5.1); Sodium 139 mmol/L (137-145); Total Protein 4.8 g/dL (6.3-8.2)
[2024-11-03 07:21] LABS: Basophils # (A) 0.01 10*3/uL (0.00-0.10); Basophils % (A) 0.2 %; Eosinophils # (A) 0.03 10*3/uL (0.04-0.35); Eosinophils % (A) 0.6 %; HCT 27.1 % (39.6-50.0); HGB 8.7 g/dL (13.0-17.0); Lymphocytes # (A) 0.90 10*3/uL (0.90-5.00); Lymphocytes % (A) 17.1 %; MCH 30.0 pg (27.0-32.0); MCHC 32.1 g/dL (32.0-37.0); MCV 93.4 fL (80.0-97.0); Monocytes # (A) 0.20 10*3/uL (0.20-1.00); Monocytes % (A) 3.8 %; Neutrophils # (A) 4.10 10*3/uL (1.80-7.70); Neutrophils % (A) 77.7 %; Platelet Count 166 10*3/uL (140-440); RBC 2.90 10*6/uL (4.40-5.60); RDW 17.0 % (11.5-14.5); WBC 5.27 10*3/uL (4.50-10.00)
[2024-11-03] MEDS: APIXABAN 5 MG TAB PO SCH (08:55)
[2024-11-03] MEDS: FUROSEMIDE 20 MG TAB PO SCH (08:55)
[2024-11-03] MEDS: DAPAGLIFLOZIN PROPANEDIOL 10 MG TABLET PO SCH (08:55)
[2024-11-03 11:41] LABS: Glucose,Whole Blood 199 mg/dL (70-110)
--- NOTE | 2024-11-03 13:54 | P.PN ---
Subjective Progress Note Date: 11/03/24 History of present illness: This is a 79-year-old male patient of Dr. Hansen with past medical history of paroxysmal atrial fibrillation on Eliquis, moderate to severe aortic stenosis, diabetes mellitus type 2, severe COPD, chronic hypoxic respiratory failure on home O2. We have been asked to evaluate the patient for elevated troponin. Patient had a recent hospitalization from . Patient was seen by cardiology at that time but patient presented with severe sepsis with pneumonia, acute on chronic hypoxic respiratory failure, COPD. On this occasion, patient presented to the hospital and had a fall on the floor around 2 AM and laid on the floor for 7 hours until his daughter came and found him. He states he did have a fever yesterday and his blood pressure was low yesterday. He denies any fever or chills now. He states he has a little cough. He does lower extremity edema. He complains of fatigue. Blood pressure 115/62, heart rate 60s and 70s, pulse ox 98% on 3 L nasal cannula. Patient is seen today in the emergency center waiting for a bed on the cardiac stepdown unit. Patient has been started on IV antibiotics, home medications and is status. -EKG: Sinus with nonspecific changes, mild ST elevation but does not meet criteria for acute ST [facility]IL[facility] -Chest x-ray: No consolidation. Cardiomegaly. Pulmonary vascular congestion and bilateral pleural effusions. #2 right lower lobe airspace opacities. Cardiomegaly, pulmonary vascular congestion or right pleural effusions. -Laboratory studies: WBC 11.2, hemoglobin 9.2. Sodium 133, BUN 49, initial creatinine 1.71 and repeat 1.34. Troponins 0.391 and 0.124. C-reactive protein 20.3. proBNP 5890. C. difficile toxin negative. Legionella antigen negative. CK 68. -Home cardiac medications: Amiodarone 100 mg daily, Eliquis 5 mg twice daily, atorvastatin 40 mg at bedtime, Jardiance 10 mg daily, Lasix 40 mg daily, Lopres sor 12.5 mg twice daily, also on ferrous sulfate. -Echocardiogram performed 10/16/2024 revealed EF 55 to 60%, moderate concentric LVH, normal RV size and systolic function, mild left atrial dilatation. Severe aortic stenosis with mean gradient of 40. Tricuspid regurgitation. RVSP 32 mmHg. 10/31/2024 Patient seen and examined on the cardiac stepdown unit. He denies chest pain. He states his shortness of breath is about the same as yesterday. Blood pressure 93/55, heart rate 86, pulse ox 93% on 3 L nasal cannula. Repeat blood work reveals BUN 37, creatinine 1.36, hemoglobin 8.6 and platelet count 138. Patient remains on a heparin drip. Dr. Rosa discussed with the patient recommendations for cardiac catheterization and patient is agreeable to move forward with this. Yesterday, we started patient on heparin drip and gave him 1 dose of IV Lasix. Third troponin was 0.158. 11/01/2024 Seen and examined at bedside this a.m. He was supposed to get a heart catheterization and TONY done however because of scheduling conflicts it could not be done today. He will be planned to have the procedure done tomorrow. He is otherwise doing well from cardiovascular standpoint. Limited 2D e chocardiogram showed an EF of 55%, trileaflet aortic valve with calcification with moderate aortic stenosis with mean gradient of 23 mmHg, mild aortic regurgitation. 11/03/2024 Seen and examined at bedside this a.m. BP 140/66, heart rate 60 bpm. Resting comfortably in the chair. Denies any active chest pain chest pressure. Cardiac testing yesterday went well with no postop complication. Physical examination: LUNGS: Diminished breath sounds. No intercostal retractions. HEART: Regular rate and rhythm. Systolic murmur. ABDOMEN: Soft No tenderness. EXTREMITIES: No pedal edema. No calf tenderness. NEUROLOGICAL: Patient is awake, alert and oriented x3. Assessment: Fall at home and on floor for 7 hours, rhabdomyolysis ruled out Acute kidney injury secondary to hypotension Possible sepsis NSTEMI possibly due to fall and acute kidney injury with known underlying CAD, cannot completely rule out acute event Paroxysmal atrial fibrillation on Eliquis at home Severe aortic stenosis Anemia Diabetes mellitus type 2 Severe COPD Chronic hypoxic respiratory failure on home O2 Plan: Continue current cardiac medications: Amiodarone 100 mg daily, aspirin 81 mg daily, atorvastatin 40 mg at bedtime, metoprolol tartrate 12.5 mg twice daily Lasix 20 mg daily At this time patient is optimized from cardiovascular standpoint. Cardiology team will sign off Recommend outpatient follow-up with cardiology with Dr. Hansen Objective - Vital Signs Vital signs: Vital Signs Temp 97.6 F 11/03/24 09:04 Pulse 86 11/03/24 13:38 Resp 20 11/03/24 13:38 BP 114/66 11/03/24 11:44 Pulse Ox 95 11/03/24 11:44 FiO2 Intake & Output 11/02/24 11/03/24 11/03/24 18:59 06:59 18:59 Intake Total 400 20 270 Output Total 250 550 Balance 150 20 -280 Weight 82 kg Intake: IV 220 20 20 Invasive Line 2 20 20 20 Oral 180 250 Output: Urine 250 550 Other: Voiding Method Urinal Urinal Urinal # Voids 1 0 - Labs CBC & Chem 7: 11/03/24 06:02 11/03/24 06:02 Labs: Abnormal Lab Results - Last 24 Hours (Table) 11/02/24 11/02/24 11/03/24 Range/Units 13:53 19:57 06:02 RBC (4.40-5.60) 10*6/uL Hgb (13.0-17.0) g/dL Hct (39.6-50.0) % Eosinophils # (0.04-0.35) 10*3/uL Chloride 111 H 111 H (98-107) mmol/L POC Glucose (mg/dL) 170 H (70-110) mg/dL Calcium 8.3 L 8.1 L (8.4-10.2) mg/dL ALT 58 H (4-49) U/L Total Protein 4.8 L (6.3-8.2) g/dL Albumin 2.5 L (3.5-5.0) g/dL 11/03/24 11/03/24 Range/Units 06:02 11:40 RBC 2.90 L (4.40-5.60) 10*6/uL Hgb 8.7 L (13.0-17.0) g/dL Hct 27.1 L (39.6-50.0) % Eosinophils # 0.03 L (0.04-0.35) 10*3/uL Chloride (98-107) mmol/L POC Glucose (mg/dL) 199 H (70-110) mg/dL Calcium (8.4-10.2) mg/dL ALT (4-49) U/L Total Protein (6.3-8.2) g/dL Albumin (3.5-5.0) g/dL
--- NOTE | 2024-11-03 14:06 | P.PN ---
Subjective Progress Note Date: 11/03/24 Principal diagnosis: Respiratory failure. This is a 79-year-old male patient with a known history of chronic obstructive pulmonary disease, oxygen dependent, paroxysmal atrial fibrillation anticoagulated with Eliquis, severe aortic stenosis, diabetes mellitus, with recent frequent admissions. He was discharged on October 26, 2024. He was brought back to the hospital yesterday October 29, 2024 after sustaining a fall at home at approximately 2:00 in the morning. He is unsure if he tripped and fell or if he passed out. He laid on the ground for 6 hours until a neighbor came by to help him up. He was too weak to stand and EMS was called. He denied any chest pain. No worsening shortness of breath, cough or congestion. No abdominal pain, nausea vomiting or diarrhea. EKG revealed sinus tachycardia. Chest x-ray revealed no discrete consolidative changes. There is cardiomegaly and pulmonary vascular congestion with bilateral pleural effusions. White count 11.2. Hemoglobin 9.2. Platelets 148. Sodium 138. Potassium 4.3. Bicarb 22. BUN 47. Creatinine 1.34. Troponin 0.124, 0.158. proBNP 5890. He is seen today in consultation in the emergency department. He is currently sitting up on a stretcher. Awake and alert oriented x 3. Unclear about what happened to him prior to being on the kitchen floor. He is currently maintaining good O2 saturation in the upper 90s on 3 L/min per nasal cannula. He is afebrile. Hemodynamically stable. Currently in sinus rhythm. Patient was seen today on 10/31/2024, breathing better easier, not in distress, and again the findings on his chest x-ray are consistent with inflammatory changes, patient is recovering from recent pneumonia involving the right lower lobe. Patient did not get readmitted because of pneumonia, his chief complaint was a complaint of passing out episode, and we believe that the passing of episo de is most likely cardiac in nature related to his aortic stenosis, cardiology has seen the patient, and addressing this issue may have to be considered for cardiac catheterization and for eventually TAVR procedure. Patient is back on his usual bronchodilators, he is empirically on antibiotics, however considering his procalcitonin level is elevated, will recommend that we continue antibiotics for now. His WBC count today is normal came down from 16.09 down to 7.36 today. Electrolytes are normal BUN is 37 creatinine 1.36, came down from 1.71 on admission Progress note dated November 01, 2024. The patient was seen today in room 360. He continues on nasal O2 at 3 L. He also has IV heparin running. The patient is awake and alert. No acute distress. No respiratory distress. He can speak in full sentences. The patient has had multiple admissions to this hospital in recent weeks. Current laboratory data includes a white count of 6.03, hemoglobin 8.1, hematocrit 25.8, and a platelet count of 136,000. Sodium 139, potassium 4, chlorides 112, CO2 21, BUN 27, creatinine 1.27. Glucose is 252. Calcium is 7.7. Progress note dated November 02, 2024. 79-year-old male, seen today in room 360. The patient is scheduled to have a left heart catheterization, and transesophageal echocardiogram today. He is on 2 L of oxygen. He is not receiving any IV fluids. Earlier today, he was on heparin, IV. His creatinine has corrected, and is down to 1.08. The patient is sitting at the side of the bed. He is awake and alert. No acute distress. White count is 5.9, hemoglobin 8.8, hematocrit 27.5, platelet count 138,000. PTT is 49.7. Sodium 139, potassium 4.5, chlorides 113, CO2 19, anion gap 7, BUN 20, creatinine 1.08. Glucose is 114. Calcium 8.3. Albumin 2.4. No recent chest x-ray to report. Culture data is all negative. Progress note dated November 03, 2024. 79-year-old male seen today in room 360. Patient is resting comfortably in bed. No acute distress. He is on 3 L. Not receiving any IV fluids. The patient was found to have nonobstructive coronary disease, medical management was recommended. In addition, he has moderate aortic stenosis, and cardiology felt that it was not causing his syncope. Clinically, the patient appears relatively stable. Current laboratory data includes a white count of 5.3, hemoglobin 8.7, hematocrit 27.1, and a platelet count of 166,000. Sodium 139, potassium 4.3, chlorides 111, CO2 22, BUN 15, creatinine 1.03. Glucose is 199. Calcium is 8.1. Albumin 2.5. Objective - Vital Signs Vital signs: Vital Signs Temp 97.6 F 11/03/24 09:04 Pulse 86 11/03/24 13:38 Resp 20 11/03/24 13:38 BP 114/66 11/03/24 11:44 Pulse Ox 95 11/03/24 11:44 FiO2 Intake & Output 11/02/24 11/03/24 11/03/24 18:59 06:59 18:59 Intake Total 400 20 270 Output Total 250 550 Balance 150 20 -280 Weight 82 kg Intake: IV 220 20 20 Invasive Line 2 20 20 20 Oral 180 250 Output: Urine 250 550 Other: Voiding Method Urinal Urinal Urinal # Voids 1 0 - Exam No acute distress, oriented 3. Currently on 3 L of oxygen. HEENT examination is grossly unremarkable. Mucous membranes are moist. No oral lesions. Neck supple. Full range of motion. No adenopathy thyromegaly or neck vein distention. Cardiovascular examination reveals regular rhythm rate. S1-S2 normal. No S3 or S4. A 3/6 systolic murmur is noted. Lungs reveal scattered bilateral rhonchi and crackles. No wheezes. Breath sounds are equal bilaterally. Abdomen soft bowel sounds are heard. No masses or tenderness. Extremities are intact. No cyanosis or clubbing. Mild edema is present. Skin is without rash or lesion. Neurologic examination is brief but nonfocal. - Labs CBC & Chem 7: 11/03/24 06:02 11/03/24 06:02 Labs: Abnormal Lab Results - Last 24 Hours (Table) 11/02/24 11/02/24 11/03/24 Range/Units 13:53 19:57 06:02 RBC (4.40-5.60) 10*6/uL Hgb (13.0-17.0) g/dL Hct (39.6-50.0) % Eosinophils # (0.04-0.35) 10*3/uL Chloride 111 H 111 H (98-107) mmol/L POC Glucose (mg/dL) 170 H (70-110) mg/dL Calcium 8.3 L 8.1 L (8.4-10.2) mg/dL ALT 58 H (4-49) U/L Total Protein 4.8 L (6.3-8.2) g/dL Albumin 2.5 L (3.5-5.0) g/dL 11/03/24 11/03/24 Range/Units 06:02 11:40 RBC 2.90 L (4.40-5.60) 10*6/uL Hgb 8.7 L (13.0-17.0) g/dL Hct 27.1 L (39.6-50.0) % Eosinophils # 0.03 L (0.04-0.35) 10*3/uL Chloride (98-107) mmol/L POC Glucose (mg/dL) 199 H (70-110) mg/dL Calcium (8.4-10.2) mg/dL ALT (4-49) U/L Total Protein (6.3-8.2) g/dL Albumin (3.5-5.0) g/dL Assessment and Plan Assessment: Fall, with possible syncopal episode. Moderate aortic stenosis, currently being evaluated by cardiology. Nonobstructive coronary artery disease, to be managed medically. Acute kidney injury. Right lower lobe pneumonia. Anemia, chronic. Acute on chronic diastolic CHF. Acute on chronic hypoxemic respiratory failure, secondary to her pneumonia. Recent hospitalizations for pneumonia, secondary to stenotrophomonas and Serratia. Paroxysmal atrial fibrillation. Severe oxygen dependent and steroid-dependent COPD, with an FEV1 that is 30% of predicted. Chronic hypoxemic respiratory failure. Former heavy tobacco user. Hyperlipidemia. Plan: Plan dated November 01, 2024. The patient continues on supportive care, including, oxygen, heparin, updrafts, Symbicort, antibiotics, etc. All labs, x-rays, and medications are reviewed. We will continue to follow the patient, make recommendations along the way. Overall prognosis remains guarded. The patient remains a full code. He is being followed by cardiology, for his aortic stenosis. Certainly, given the severity of his COPD, he would be a high risk patient. We will continue to follow. Dictation was produced using [employer] dictation software. Please excuse any grammatical, word or spelling errors. Plan dated November 02, 2024. The patient is seen today in room 360. He continues on nasal O2 at 2 L. He was on IV heparin. The patient is scheduled for left heart catheterization, and transesophageal echocardiogram today. Cardiology is currently evaluating his aortic stenosis. The patient is doing relatively well. He is sitting at the side of the bed. He is awake and alert. He has no specific complaints. All labs, x-rays, and medications are reviewed. We will continue to follow the patient, make recommendations along the way. Prognosis is guarded. Dictation was produced using [email or web address] software. Please excuse any grammatical, word or spelling errors. Panel dated November 03, 2024. The patient is resting comfortably in bed. He is on 3 L nasal cannula. No IV fluids. The patient had a cardiac catheterization, which revealed nonobstructive coronary disease. In addition, the patient has moderate aortic stenosis, not thought to be causing his syncopal episode. Both conditions, should be managed medically according to cardiology. Labs, x-rays, and medications are reviewed. We will continue to follow the patient, make recommendations. Prognosis is guarded. Dictation was produced using [email or web address] software. Please excuse any grammatical, word or spelling errors. Time with Patient: Less than 30
[2024-11-03 16:48] LABS: Glucose,Whole Blood 114 mg/dL (70-110)
--- NOTE | 2024-11-03 16:53 | P.PN ---
Subjective Subjective: 79-year-old male patient with a known history of atrial fibrillation, anticoagulated with Eliquis diabetes mellitus, hyperlipidemia, oxygen dependent chronic obstructive pulmonary disease who presents the hospital because of shortness of breath. Patient was discharged last week after being admitted for shortness of breath, was being treated for pneumonia, had bronchoscopy with lavage done that was positive for stenotrophomonas and was discharged on Bactrim. Patient stated he was doing well for the first couple of days after his discharge but on Friday he had a fall, stated that his legs gave up and he ended up on the floor. Patient was laying on the floor for 6 hours, had to call neighbor for help. Patient did not had any loss of consciousness. Following the fall patient was complaining of back pain, daughter came to check on him. Daughter noted that the patient was getting more weak and had a hard time ambulating. Patient was complaining of shortness of breath. There was no complaint of chest pain. Patient denies any palpitation. There is no complaint of orthopnea or PND. Denies any nausea, vomiting abdominal pain. Patient denies any complaint of dizziness. There is no complaint of headache. Patient is complaining of abdominal distention and swelling of lower extremities. Because of shortness of breath and increasing weakness, patient brought the ER Initial lab work done in the ER showed WBC 16.09, hemoglobin 8, platelet count 156, sodium 133, potassium 4.9, BUN 14, creatinine 1.71, glucose 232, lactate 1.9 AST 27, ALT 51, UA done showed urine WBC 42, leukocyte esterase moderate amount, urine nitrate negative. EKG done in the ER showed heart rate of 110, no ST segment elevation or depression seen, no T-wave inversions seen. Chest x-ray done in the ER showed no discrete consolidation changes, cardiomegaly, pulm congestion and bilateral pleural effusions. Patient admitted to internal me dicine service. 10/30. Patient seen and examined. Patient was sitting upright in the chair. States breathing has improved. States he used peeing a lot. Still states he gets short of breath on exertion. labs reviewed showing WBC 11.22, hemoglobin 9.2, sodium 139 potassium 4.3, BUN 47, creatinine 1.34, troponin 0.124. 10/31/2024 Patient is still having some cough patient is afebrile, patient white count is coming down patient's previous sputum cultures were positive for stenotrophomonas. The cultures before that were positive for ischemia and Serratia. Patient is presently on cefepime treating for Serratia and dyspnea and stenotrophomonas is considered as a colonizer. Patient was on Bactrim which resulted in acute renal failure. Patient is presently off Bactrim presently on cefepime awaiting sputum cultures from this hospitalization patient had low- grade fever on admission. Patient also had elevated troponins and will need a TAVR as well. Patient's creatinine improved close to his baseline of 1.2 presently 1.3. Patient will undergo cardiac catheterization tomorrow. Patient was also on Lasix for heart failure with preserved ejection fraction related presently Lasix is being held. 11/01. patient seen and examined at bedside. Patient was sitting upright in the chair. Not in distress states he feels better. Afebrile. SPO2 98 on 3 L of oxygen. Awaiting cardiac catheterization procedure. On IV heparin drip. His WBC count today remains normal. No significant overnight events. 11/02. Patient seen and examined at bedside. Patient laying comfortably. Alert and oriented x 3. Not in distress and states he is feeling much better. Reported sleeping well last night. Denied chest pain and shortness of breath. cardiac catheterization being done today. Vitally stable on 3 L of oxygen with a SpO2 of 100%. No significant overnight events. 11/03 Pt seen and examined at bedside. He is laying in bed comfortably says he is significantly better than on first admission. He feels ready to go home. Pertinent positives and negatives discussed above, a complete review of systems was preformed and all the other systems were negative. Vitals Signs Reviewed. GENERAL EXAM: Alert, pleasant 79-year-old male, on 3L nasal cannula and O2 sat is 100% HEAD: Normocephalic. EYES: Normal reaction of pupils, equal size. NOSE: Clear with pink turbinates. THROAT: No erythema or exudates. NECK: No masses, no JVD. CHEST: No chest wall deformity. LUNGS: Diminished breath sounds CVS: S1 and S2 normal with 3/6 systolic murmur over the aortic area ABDOMEN: Soft, No tenderness SKIN: No rashes CENTRAL NERVOUS SYSTEM: No focal deficits, tone is normal in all 4 extremities. EXTREMITIES: There is 1+ pedal edema, slightly better than yesterday. No clubbing, no cyanosis. Peripheral pulses are intact. Data Reveiwed Today: 11/02/2024 Patient Labs: WBC 5.95, Hb 8.8, sodium 139, potassium 4.5, creatinine 1.08, proBNP 5890 (10/29), procalcitonin 1.23 (10/30). Imaging: EKG-LV normal size, ejection fraction 55%. Mild aortic stenosis, calcific. CXR -right lower lobe airspace opacities not significantly changed. Cardiomegaly, pulmonary vascular congestion with pleural effusions. Correlate with BNP for congestive heart failure. Assessment and plan Pneumonia recurrent, multiple organisms in the previous sputum cultures he is presently on cefepime. Acute renal failure secondary to Bactrim improved after discontinuation of Bactrim presently at his baseline Acute non-ST elevation myocardial infarction cannot rule out type I NC, patient will undergo cardiac catheterization Fall Generalized weakness Acute on chronic hypoxic respiratory failure Bacterial pneumonia, recent bronchial lavage showing stenotrophomonas from last hospitalization History of COPD Moderate to severe aortic stenosis mean gradient 35 mmHg History of paroxysmal atrial fibrillation, currently sinus rhythm Acute on chronic HFpEF Type 2 diabetes -TONY revealed with mean gradient of 20mmHg, not severe enough to cause symptoms, cath reveals aortic calcification but no vascular pathology -Continue current cardiac medications per cardiology: Amiodarone 100 mg daily, aspirin 81 mg daily, atorvastatin 40 mg at bedtime, metoprolol tartrate 12.5 mg twice daily Lasix 20 mg daily, resume eliquis at home -Continue cefepime (day 5) -Continue telemetry monitoring -Encourage use of incentive spirometer -Strict I's and O's -continue with heparin pharmacy dose -Breathing treatment -Monitor vital signs -Monitor CBC -Monitor CMP DVT ppx: on heparin GI ppx: famotidine DC: completion of IV abx today, transition to PO abx, appreciate recs from ID Objective - Vital Signs Vital signs: Vital Signs Temp 97.6 F 11/03/24 15:52 Pulse 65 11/03/24 16:04 Resp 20 11/03/24 15:52 BP 101/60 11/03/24 15:52 Pulse Ox 99 11/03/24 15:52 FiO2 Intake & Output 11/02/24 11/03/24 11/03/24 18:59 06:59 18:59 Intake Total 400 20 270 Output Total 250 550 Balance 150 20 -280 Weight 82 kg Intake: IV 220 20 20 Invasive Line 2 20 20 20 Oral 180 250 Output: Urine 250 550 Other: Voiding Method Urinal Urinal Urinal # Voids 1 0 - Labs CBC & Chem 7: 11/03/24 06:02 11/03/24 06:02 Labs: Abnormal Lab Results - Last 24 Hours (Table) 11/02/24 11/03/24 11/03/24 Range/Units 19:57 06:02 06:02 RBC 2.90 L (4.40-5.60) 10*6/uL Hgb 8.7 L (13.0-17.0) g/dL Hct 27.1 L (39.6-50.0) % Eosinophils # 0.03 L (0.04-0.35) 10*3/uL Chloride 111 H (98-107) mmol/L POC Glucose (mg/dL) 170 H (70-110) mg/dL Calcium 8.1 L (8.4-10.2) mg/dL ALT 58 H (4-49) U/L Total Protein 4.8 L (6.3-8.2) g/dL Albumin 2.5 L (3.5-5.0) g/dL 11/03/24 Range/Units 11:40 RBC (4.40-5.60) 10*6/uL Hgb (13.0-17.0) g/dL Hct (39.6-50.0) % Eosinophils # (0.04-0.35) 10*3/uL Chloride (98-107) mmol/L POC Glucose (mg/dL) 199 H (70-110) mg/dL Calcium (8.4-10.2) mg/dL ALT (4-49) U/L Total Protein (6.3-8.2) g/dL Albumin (3.5-5.0) g/dL
[2024-11-03 20:16] LABS: Glucose,Whole Blood 206 mg/dL (70-110)
[2024-11-04 06:19] LABS: Glucose,Whole Blood 148 mg/dL (70-110)
--- NOTE | 2024-11-04 07:08 | P.PN ---
Subjective Progress Note Date: 11/03/24 Principal diagnosis: Reason for follow-up is fever Patient is a 79-year-old male with a past medical history significant for COPD atrial fibrillation diabetes mellitus hypertension hyperlipidemia osteoarthritis recent multiple admission to the hospital with pneumonia he did have a bronchoscopy and lavage on 10/21/2024 that was positive for stenotrophomonas discharged on Bactrim now presented the hospital for weakness and did have a follow-up to have low-grade fever and elevated white count prompting this consultation. Patient is status post cardiac cath with no ev idence of significant obstructive disease completed on 11/02/2024 On today's evaluation 11/03/2024,the patient denies any fever or any chills, patient is breathing slightly comfortably on 3 L, oxygen, the patient denies chest pain or any worsening cough, patient denies abdominal pain, no nausea vomiting or diarrhea. Patient white count is 5.27, creatinine is 1.03 without a urine culture has been negative sputum not collected Objective - Vital Signs Vital signs: Vital Signs Temp 97.6 F 11/03/24 12:09 Pulse 86 11/03/24 12:09 Resp 20 11/03/24 12:09 BP 105/64 11/03/24 12:09 Pulse Ox 97 11/03/24 12:09 FiO2 3L NC - Exam GENERAL DESCRIPTION: An elderly male l in a chair in no distress RESPIRATORY SYSTEM: Unlabored breathing , coarse breath sounds at bases HEART: S1 S2 regular rate and rhythm , ABDOMEN: Soft , no tenderness EXTREMITIES: No edema feet - Labs CBC & Chem 7: 11/03/24 06:02 11/03/24 06:02 Labs: Abnormal Lab Results - Last 24 Hours (Table) 11/03/24 11/03/24 11/03/24 Range/Units 06:02 06:02 11:40 RBC 2.90 L (4.40-5.60) 10*6/uL Hgb 8.7 L (13.0-17.0) g/dL Hct 27.1 L (39.6-50.0) % Eosinophils # 0.03 L (0.04-0.35) 10*3/uL Chloride 111 H (98-107) mmol/L POC Glucose (mg/dL) 199 H (70-110) mg/dL Calcium 8.1 L (8.4-10.2) mg/dL ALT 58 H (4-49) U/L Total Protein 4.8 L (6.3-8.2) g/dL Albumin 2.5 L (3.5-5.0) g/dL 11/03/24 11/03/24 11/04/24 Range/Units 16:47 20:15 06:18 RBC (4.40-5.60) 10*6/uL Hgb (13.0-17.0) g/dL Hct (39.6-50.0) % Eosinophils # (0.04-0.35) 10*3/uL Chloride (98-107) mmol/L POC Glucose (mg/dL) 114 H 206 H 148 H (70-110) mg/dL Calcium (8.4-10.2) mg/dL ALT (4-49) U/L Total Protein (6.3-8.2) g/dL Albumin (3.5-5.0) g/dL Microbiology - Last 24 Hours (Table) 10/29/24 10:17 Blood Culture - Final Blood Assessment and Plan (1) Leukocytosis Current Visit: Yes Status: Acute Code(s): D72.829 - ELEVATED WHITE BLOOD CELL COUNT, UNSPECIFIED SNOMED Code(s): 315577318 (2) Fever Current Visit: No Status: Acute Code(s): R50.9 - FEVER, UNSPECIFIED SNOMED Code(s): 381646781 (3) Penicillin allergy Current Visit: No Status: Acute Code(s): Z88.0 - ALLERGY STATUS TO PENICILLIN SNOMED Code(s): 89515687 (4) Renal insufficiency Current Visit: No Status: Acute Code(s): N28.9 - DISORDER OF KIDNEY AND UR ETER, UNSPECIFIED SNOMED Code(s): 138819392 (5) Oral thrush Current Visit: Yes Status: Acute Code(s): B37.0 - CANDIDAL STOMATITIS SNOMED Code(s): 58124831 Plan: 1patient presented hospital with weakness and did have a fall in this patient who was recently discharged from hospital after being treated for COPD his adm ission and there was concern for pneumonia status post bronchoscopy lavage was positive for stenotrophomonas now did have low-grade fever elevated white count chest x-ray has been mostly pulmonary vascular congestion further than consolidation has been complaining of some diarrhea however stool for C. difficile is negative urine is mildly positive with symptoms of frequency 2patient did have elevated procalcitonin and CRP 3 sputum for Gram stain and culture not collected, blood as well as urine culture so far negative 4the patient complaining of soreness in the mouth possible thrush patient has been started on nystatin swish and swallow and see clinical response 5patient did have improvement in his fever pattern white count has normalized, patient to continue cefepime finish 7-day course of therapy Dictation was produced using [employer] software. please excuse any grammatical, word or spelling errors.
--- NOTE | 2024-11-04 07:08 | P.PN ---
Subjective Progress Note Date: 11/02/24 Principal diagnosis: Reason for follow-up is fever Patient is a 79-year-old male with a past medical history significant for COPD atrial fibrillation diabetes mellitus hypertension hyperlipidemia osteoarthritis recent multiple admission to the hospital with pneumonia he did have a bronchoscopy and lavage on 10/21/2024 that was positive for stenotrophomonas discharged on Bactrim now presented the hospital for weakness and did have a follow-up to have low-grade fever and elevated white count prompting this consultation. Patient is status post cardiac cath with no ev idence of significant obstructive disease completed on 11/02/2024 On today's evaluation 11/02/2024, Patient is afebrile this morning patient denies having any chest pain breathing more comfortably occasional cough, the patient is currently on 3 L nasal oxygen, patient denies any abdominal pain no diarrhea no nausea no vomiting. Patient white count is 5.95, creatinine is down to 1.08 Objective - Vital Signs Vital signs: Vital Signs Temp 97.8 F 11/02/24 15:49 Pulse 80 11/02/24 15:49 Resp 20 11/02/24 15:49 BP 103/58 11/02/24 15:49 Pulse Ox 95 11/02/24 15:49 FiO2 Intake & Output 11/01/24 11/02/24 11/02/24 18:59 06:59 18:59 Intake Total 1030 295.574 220 Output Total 425 900 250 Balance 605 -604.426 -30 Weight 78.5 kg 81.8 kg Intake: IV 20 20 220 Invasive Line 2 20 20 20 Intake, IV Titration 275.574 Amount Heparin Sod,Pork in 0.45% 275.574 NaCl 25,000 unit In 0.45 % NaCl 1 250ml.bag @ 11. 962 UNITS/KG/HR 10 mls/hr IV .Q24H [facility] Rx#: [id number] Oral 1010 Output: Urine 425 900 250 Other: Voiding Method Urinal Urinal Urinal # Bowel Movements 1 - Exam GENERAL DESCRIPTION: An elderly male l in a chair in no distress RESPIRATORY SYSTEM: Unlabored breathing , coarse breath sounds at bases HEART: S1 S2 regular rate and rhythm , ABDOMEN: Soft , no tenderness EXTREMITIES: No edema feet - Labs CBC & Chem 7: 11/02/24 06:51 11/02/24 13:53 Labs: Abnormal Lab Results - Last 24 Hours (Table) 11/01/24 11/01/24 11/02/24 Range/Units 20:06 23:06 06:06 RBC (4.40-5.60) 10*6/uL Hgb (13.0-17.0) g/dL Hct (39.6-50.0) % Plt Count (140-440) 10*3/uL Lymphocytes # (0.90-5.00) 10*3/uL Eosinophils # (0.04-0.35) 10*3/uL APTT 33.5 H (22.0-30.0) sec Chloride (98-107) mmol/L Carbon Dioxide (22-30) mmol/L Glucose (74-99) mg/dL POC Glucose (mg/dL) 169 H 144 H (70-110) mg/dL Calcium (8.4-10.2) mg/dL ALT (4-49) U/L Total Protein (6.3-8.2) g/dL Albumin (3.5-5.0) g/dL 11/02/24 11/02/24 11/02/24 Range/Units 06:51 06:51 06:51 RBC 2.95 L (4.40-5.60) 10*6/uL Hgb 8.8 L (13.0-17.0) g/dL Hct 27.5 L (39.6-50.0) % Plt Count 138 L (140-440) 10*3/uL Lymphocytes # 0.81 L (0.90-5.00) 10*3/uL Eosinophils # 0.03 L (0.04-0.35) 10*3/uL APTT 49.7 H (22.0-30.0) sec Chloride 113 H (98-107) mmol/L Carbon Dioxide 19 L (22-30) mmol/L Glucose 130 H (74-99) mg/dL POC Glucose (mg/dL) (70-110) mg/dL Calcium 8.3 L (8.4-10.2) mg/dL ALT 64 H (4-49) U/L Total Protein 4.7 L (6.3-8.2) g/dL Albumin 2.4 L (3.5-5.0) g/dL 11/02/24 11/02/24 Range/Units 11:23 13:53 RBC (4.40-5.60) 10*6/uL Hgb (13.0-17.0) g/dL Hct (39.6-50.0) % Plt Count (140-440) 10*3/uL Lymphocytes # (0.90-5.00) 10*3/uL Eosinophils # (0.04-0.35) 10*3/uL APTT (22.0-30.0) sec Chloride 111 H (98-107) mmol/L Carbon Dioxide (22-30) mmol/L Glucose (74-99) mg/dL POC Glucose (mg/dL) 114 H (70-110) mg/dL Calcium 8.3 L (8.4-10.2) mg/dL ALT (4-49) U/L Total Protein (6.3-8.2) g/dL Albumin (3.5-5.0) g/dL Microbiology - Last 24 Hours (Table) 10/29/24 10:17 Blood Culture - Preliminary Blood Assessment and Plan (1) Leukocytosis Current Visit: Yes Status: Acute Code(s): D72.829 - ELEVATED WHITE BLOOD CELL COUNT, UNSPECIFIED SNOMED Code(s): 980618279 (2) Fever Current Visit: No Status: Acute Code(s): R50.9 - FEVER, UNSPECIFIED SNOMED Code(s): 020222214 (3) Penicillin allergy Current Visit: No Status: Acute Code(s): Z88.0 - ALLERGY STATUS TO PENICILLIN SNOMED Code(s): 64099880 (4) Renal insufficiency Current Visit: No Status: Acute Code(s): N28.9 - DISORDER OF KIDNEY AND URETER, UNSPECIFIED SNOMED Code(s): 554278521 (5) Oral thrush Current Visit: Yes Status: Acute Code(s): B37.0 - CANDIDAL STOMATITIS SNOMED Code(s): 94077545 Plan: 1patient presented hospital with weakness and did have a fall in this patient who was recently discharged from hospital after being treated for COPD his admission and there was concern for pneumonia status post bronchoscopy lavage was positive for stenotrophomonas now did have low-grade fever elevated white count chest x-ray has been mostly pulmonary vascular congestion further than consolidation has been complaining of some diarrhea however stool for C. difficile is negative urine is mildly positive with symptoms of frequency 2patient did have elevated procalcitonin and CRP 3 sputum for Gram stain and culture not collected, blood as well as urine culture so far negative 4the patient complaining of soreness in the mouth possible thrush patient has been started on nystatin swish and swallow 5patient did have improvement in his fever pattern white count has normalized, patient to continue cefepime Dictation was produced using [employer] dictation software. please excuse any grammatical, word or spelling errors.
[2024-11-04 07:20] LABS: ALT 59 U/L (4-49); African American GFR (CKD) 75 (>60 ml/min/1.73 sqM); Albumin 2.8 g/dL (3.5-5.0); Anion Gap 8 mmol/L; Blood Urea Nitrogen 13 mg/dL (9-20); Calcium 8.6 mg/dL (8.4-10.2); Carbon Dioxide 19 mmol/L (22-30); Chloride 112 mmol/L (98-107); Glucose 129 mg/dL (74-99); Non-African American GFR(CKD) 65 (>60 ml/min/1.73 sqM); Sodium 139 mmol/L (137-145); Total Protein 5.4 g/dL (6.3-8.2)
[2024-11-04 07:26] LABS: AST 35 U/L (17-59); Alkaline Phosphatase 77 U/L (38-126); Potassium 4.6 mmol/L (3.5-5.1)
[2024-11-04 08:08] LABS: Basophils # (A) 0.02 10*3/uL (0.00-0.10); Basophils % (A) 0.3 %; Eosinophils # (A) 0.04 10*3/uL (0.04-0.35); Eosinophils % (A) 0.6 %; HCT 29.4 % (39.6-50.0); HGB 9.1 g/dL (13.0-17.0); Lymphocytes # (A) 1.21 10*3/uL (0.90-5.00); Lymphocytes % (A) 19.5 %; MCH 29.1 pg (27.0-32.0); MCHC 31.0 g/dL (32.0-37.0); MCV 93.9 fL (80.0-97.0); Monocytes # (A) 0.22 10*3/uL (0.20-1.00); Monocytes % (A) 3.5 %; Neutrophils # (A) 4.65 10*3/uL (1.80-7.70); Neutrophils % (A) 75.1 %; Platelet Count 177 10*3/uL (140-440); RBC 3.13 10*6/uL (4.40-5.60); RDW 17.2 % (11.5-14.5); WBC 6.20 10*3/uL (4.50-10.00)
--- NOTE | 2024-11-04 08:59 | P.PN ---
Subjective Progress Note Date: 11/04/24 History of present illness: This is a 79-year-old male patient of Dr. Hansen with past medical history of paroxysmal atrial fibrillation on Eliquis, moderate to severe aortic stenosis, diabetes mellitus type 2, severe COPD, chronic hypoxic respiratory failure on home O2. We have been asked to evaluate the patient for elevated troponin. Patient had a recent hospitalization from . Patient was seen by cardiology at that time but patient presented with severe sepsis with pneumonia, acute on chronic hypoxic respiratory failure, COPD. On this occasion, patient presented to the hospital and had a fall on the floor around 2 AM and laid on the floor for 7 hours until his daughter came and found him. He states he did have a fever yesterday and his blood pressure was low yesterday. He denies any fever or chills now. He states he has a little cough. He does lower extremity edema. He complains of fatigue. Blood pressure 115/62, heart rate 60s and 70s, pulse ox 98% on 3 L nasal cannula. Patient is seen today in the emergency center waiting for a bed on the cardiac stepdown unit. Patient has been started on IV antibiotics, home medications and is status. -EKG: Sinus with nonspecific changes, mild ST elevation but does not meet criteria for acute ST LILIAM -Chest x-ray: No consolidation. Cardiomegaly. Pulmonary vascular congestion and bilateral pleural effusions. #2 right lower lobe airspace opacities. Cardiomegaly, pulmonary vascular congestion or right pleural effusions. -Laboratory studies: WBC 11.2, hemoglobin 9.2. Sodium 133, BUN 49, initial creatinine 1.71 and repeat 1.34. Troponins 0.391 and 0.124. C-reactive protein 20.3. proBNP 5890. C. difficile toxin negative. Legionella antigen negative. CK 68. -Home cardiac medications: Amiodarone 100 mg daily, Eliquis 5 mg twice daily, atorvastatin 40 mg at bedtime, Jardiance 10 mg daily, Lasix 40 mg daily, Lopres sor 12.5 mg twice daily, also on ferrous sulfate. -Echocardiogram performed 10/16/2024 revealed EF 55 to 60%, moderate concentric LVH, normal RV size and systolic function, mild left atrial dilatation. Severe aortic stenosis with mean gradient of 40. Tricuspid regurgitation. RVSP 32 mmHg. 10/31/2024 Patient seen and examined on the cardiac stepdown unit. He denies chest pain. He states his shortness of breath is about the same as yesterday. Blood pressure 93/55, heart rate 86, pulse ox 93% on 3 L nasal cannula. Repeat blood work reveals BUN 37, creatinine 1.36, hemoglobin 8.6 and platelet count 138. Patient remains on a heparin drip. Dr. Rosa discussed with the patient recommendations for cardiac catheterization and patient is agreeable to move forward with this. Yesterday, we started patient on heparin drip and gave him 1 dose of IV Lasix. Third troponin was 0.158. 11/01/2024 Seen and examined at bedside this a.m. He was supposed to get a heart catheterization and TONY done however because of scheduling conflicts it could not be done today. He will be planned to have the procedure done tomorrow. He is otherwise doing well from cardiovascular standpoint. Limited 2D e chocardiogram showed an EF of 55%, trileaflet aortic valve with calcification with moderate aortic stenosis with mean gradient of 23 mmHg, mild aortic regurgitation. 11/03/2024 Seen and examined at bedside this a.m. BP 140/66, heart rate 60 bpm. Resting comfortably in the chair. Denies any active chest pain chest pressure. Cardiac testing yesterday went well with no postop complication. 11/04/2024 Seen and examined at bedside this a.m. Blood pressure is borderline and fluctuating. There are few readings with blood pressure of BP mid 90s/ mid 60s. Heart rate is around 80 bpm. I will cut his metoprolol to tartrate 25 twice daily to metoprolol succinate 25 daily. He is not on any other a ntihypertensives other than Lasix 20 mg which he needs. Physical examination: LUNGS: Diminished breath sounds. No intercostal retractions. HEART: Regular rate and rhythm. Systolic murmur. ABDOMEN: Soft No tenderness. EXTREMITIES: No pedal edema. No calf tenderness. NEUROLOGICAL: Patient is awake, alert and oriented x3. Assessment: Fall at home and on floor for 7 hours, rhabdomyolysis ruled out Acute kidney injury secondary to hypotension Possible sepsis NSTEMI possibly due to fall and acute kidney injury with known underlying CAD, cannot completely rule out acute event Paroxysmal atrial fibrillation on Eliquis at home Severe aortic stenosis Anemia Diabetes mellitus type 2 Severe COPD Chronic hypoxic respiratory failure on home O2 Plan: Continue current cardiac medications: Amiodarone 100 mg daily, aspirin 81 mg daily, atorvastatin 40 mg at bedtime, Reduce metoprolol to tartrate 25 twice daily to metoprolol succinate 25 daily. Lasix 20 mg daily At this time patient is optimized from cardiovascular standpoint. Cardiology team will sign off Fall precaution at home PT OT evaluation and discharge disposition may be consider discharging to a rehab if clinically appropriate. Recommend outpatient follow-up with cardiology with Dr. Hansen Objective - Vital Signs Vital signs: Vital Signs Temp 97.6 F 11/04/24 03:09 Pulse 86 11/04/24 08:51 Resp 20 11/04/24 03:09 BP 105/64 11/04/24 03:09 Pulse Ox 93 L 11/04/24 08:51 FiO2 Intake & Output 11/03/24 11/04/24 11/04/24 18:59 06:59 18:59 Intake Total 270 560 Output Total 550 0 Balance -280 560 Weight 82.1 kg Intake: IV 20 20 Invasive Line 2 20 20 Oral 250 540 Output: Urine 550 0 Other: Voiding Method Urinal Urinal # Voids 1 # Bowel Movements 1 - Labs CBC & Chem 7: 11/04/24 06:32 11/04/24 06:32 Labs: Abnormal Lab Results - Last 24 Hours (Table) 11/03/24 11/03/24 11/03/24 Range/Units 11:40 16:47 20:15 RBC (4.40-5.60) 10*6/uL Hgb (13.0-17.0) g/dL Hct (39.6-50.0) % MCHC (32.0-37.0) g/dL Immature Gran # (0.00-0.04) 10*3/uL Chloride (98-107) mmol/L Carbon Dioxide (22-30) mmol/L Glucose (74-99) mg/dL POC Glucose (mg/dL) 199 H 114 H 206 H (70-110) mg/dL ALT (4-49) U/L Total Protein (6.3-8.2) g/dL Albumin (3.5-5.0) g/dL 11/04/24 11/04/24 11/04/24 Range/Units 06:18 06:32 06:32 RBC 3.13 L (4.40-5.60) 10*6/uL Hgb 9.1 L (13.0-17.0) g/dL Hct 29.4 L (39.6-50.0) % MCHC 31.0 L (32.0-37.0) g/dL Immature Gran # 0.06 H (0.00-0.04) 10*3/uL Chloride 112 H (98-107) mmol/L Carbon Dioxide 19 L (22-30) mmol/L Glucose 129 H (74-99) mg/dL POC Glucose (mg/dL) 148 H (70-110) mg/dL ALT 59 H (4-49) U/L Total Protein 5.4 L (6.3-8.2) g/dL Albumin 2.8 L (3.5-5.0) g/dL Microbiology - Last 24 Hours (Table) 10/29/24 10:17 Blood Culture - Final Blood
--- NOTE | 2024-11-04 11:06 | P.PN ---
Subjective Progress Note Date: 11/04/24 Principal diagnosis: Respiratory failure. This is a 79-year-old male patient with a known history of chronic obstructive pulmonary disease, oxygen dependent, paroxysmal atrial fibrillation anticoagulated with Eliquis, severe aortic stenosis, diabetes mellitus, with recent frequent admissions. He was discharged on October 26, 2024. He was brought back to the hospital yesterday October 29, 2024 after sustaining a fall at home at approximately 2:00 in the morning. He is unsure if he tripped and fell or if he passed out. He laid on the ground for 6 hours until a neighbor came by to help him up. He was too weak to stand and EMS was called. He denied any chest pain. No worsening shortness of breath, cough or congestion. No abdominal pain, nausea vomiting or diarrhea. EKG revealed sinus tachycardia. Chest x-ray revealed no discrete consolidative changes. There is cardiomegaly and pulmonary vascular congestion with bilateral pleural effusions. White count 11.2. Hemoglobin 9.2. Platelets 148. Sodium 138. Potassium 4.3. Bicarb 22. BUN 47. Creatinine 1.34. Troponin 0.124, 0.158. proBNP 5890. He is seen today in consultation in the emergency department. He is currently sitting up on a stretcher. Awake and alert oriented x 3. Unclear about what happened to him prior to being on the kitchen floor. He is currently maintaining good O2 saturation in the upper 90s on 3 L/min per nasal cannula. He is afebrile. Hemodynamically stable. Currently in sinus rhythm. Patient was seen today on 10/31/2024, breathing better easier, not in distress, and again the findings on his chest x-ray are consistent with inflammatory changes, patient is recovering from recent pneumonia involving the right lower lobe. Patient did not get readmitted because of pneumonia, his chief complaint was a complaint of passing out episode, and we believe that the passing of episo de is most likely cardiac in nature related to his aortic stenosis, cardiology has seen the patient, and addressing this issue may have to be considered for cardiac catheterization and for eventually TAVR procedure. Patient is back on his usual bronchodilators, he is empirically on antibiotics, however considering his procalcitonin level is elevated, will recommend that we continue antibiotics for now. His WBC count today is normal came down from 16.09 down to 7.36 today. Electrolytes are normal BUN is 37 creatinine 1.36, came down from 1.71 on admission Progress note dated November 01, 2024. The patient was seen today in room 360. He continues on nasal O2 at 3 L. He also has IV heparin running. The patient is awake and alert. No acute distress. No respiratory distress. He can speak in full sentences. The patient has had multiple admissions to this hospital in recent weeks. Current laboratory data includes a white count of 6.03, hemoglobin 8.1, hematocrit 25.8, and a platelet count of 136,000. Sodium 139, potassium 4, chlorides 112, CO2 21, BUN 27, creatinine 1.27. Glucose is 252. Calcium is 7.7. Progress note dated November 02, 2024. 79-year-old male, seen today in room 360. The patient is scheduled to have a left heart catheterization, and transesophageal echocardiogram today. He is on 2 L of oxygen. He is not receiving any IV fluids. Earlier today, he was on heparin, IV. His creatinine has corrected, and is down to 1.08. The patient is sitting at the side of the bed. He is awake and alert. No acute distress. White count is 5.9, hemoglobin 8.8, hematocrit 27.5, platelet count 138,000. PTT is 49.7. Sodium 139, potassium 4.5, chlorides 113, CO2 19, anion gap 7, BUN 20, creatinine 1.08. Glucose is 114. Calcium 8.3. Albumin 2.4. No recent chest x-ray to report. Culture data is all negative. Progress note dated November 03, 2024. 79-year-old male seen today in room 360. Patient is resting comfortably in bed. No acute distress. He is on 3 L. Not receiving any IV fluids. The patient was found to have nonobstructive coronary disease, medical management was recommended. In addition, he has moderate aortic stenosis, and cardiology felt that it was not causing his syncope. Clinically, the patient appears relatively stable. Current laboratory data includes a white count of 5.3, hemoglobin 8.7, hematocrit 27.1, and a platelet count of 166,000. Sodium 139, potassium 4.3, chlorides 111, CO2 22, BUN 15, creatinine 1.03. Glucose is 199. Calcium is 8.1. Albumin 2.5. Progress note dated November 04, 2024. 79-year-old male seen today in room 360. The patient continues on nasal O2 at 3 L. The patient was on cefepime, for right lower lobe pneumonia, but currently is doing well from the pulmonary standpoint. The patient was evaluated by cardiology, found to have nonobstructive coronary disease, and medical management was recommended. In addition, the patient had a transesophageal echocardiogram which showed moderate aortic stenosis. Again, cardiology thought the patient should be medically managed. Current labs include a white count of 6.2, hemoglobin 9.1, hematocrit 29.4, and a platelet count of 177,000. Sodium 139, potassium 4.6, chlorides 112, CO2 19, BUN 13, creatinine 1.09. Glucose is 129. Albumin is 2.8. Objective - Vital Signs Vital signs: Vital Signs Temp 98.1 F 11/04/24 08:00 Pulse 88 11/04/24 09:02 Resp 20 11/04/24 08:00 BP 101/42 11/04/24 08:00 Pulse Ox 93 L 11/04/24 08:51 FiO2 Intake & Output 11/03/24 11/04/24 11/04/24 18:59 06:59 18:59 Intake Total 270 560 118 Output Total 550 0 350 Balance -280 560 -232 Weight 82.1 kg Intake: IV 20 20 Invasive Line 2 20 20 Oral 250 540 118 Output: Urine 550 0 350 Other: Voiding Method Urinal Urinal # Voids 1 # Bowel Movements 1 1 - Exam No acute distress, oriented 3. Currently on 3 L of oxygen. HEENT examination is grossly unremarkable. Mucous membranes are moist. No oral lesions. Neck supple. Full range of motion. No adenopathy thyromegaly or neck vein distention. Cardiovascular examination reveals regular rhythm rate. S1-S2 normal. No S3 or S4. A 3/6 systolic murmur is noted. Lungs reveal scattered bilateral rhonchi and crackles. No wheezes. Breath sounds are equal bilaterally. Abdomen soft bowel sounds are heard. No masses or tenderness. Extremities are intact. No cyanosis or clubbing. Mild edema is present. Skin is without rash or lesion. Neurologic examination is brief but nonfocal. - Labs CBC & Chem 7: 11/04/24 06:32 11/04/24 06:32 Labs: Abnormal Lab Results - Last 24 Hours (Table) 11/03/24 11/03/24 11/03/24 Range/Units 11:40 16:47 20:15 RBC (4.40-5.60) 10*6/uL Hgb (13.0-17.0) g/dL Hct (39.6-50.0) % MCHC (32.0-37.0) g/dL Immature Gran # (0.00-0.04) 10*3/uL Chloride (98-107) mmol/L Carbon Dioxide (22-30) mmol/L Glucose (74-99) mg/dL POC Glucose (mg/dL) 199 H 114 H 206 H (70-110) mg/dL ALT (4-49) U/L Total Protein (6.3-8.2) g/dL Albumin (3.5-5.0) g/dL 11/04/24 11/04/24 11/04/24 Range/Units 06:18 06:32 06:32 RBC 3.13 L (4.40-5.60) 10*6/uL Hgb 9.1 L (13.0-17.0) g/dL Hct 29.4 L (39.6-50.0) % MCHC 31.0 L (32.0-37.0) g/dL Immature Gran # 0.06 H (0.00-0.04) 10*3/uL Chloride 112 H (98-107) mmol/L Carbon Dioxide 19 L (22-30) mmol/L Glucose 129 H (74-99) mg/dL POC Glucose (mg/dL) 148 H (70-110) mg/dL ALT 59 H (4-49) U/L Total Protein 5.4 L (6.3-8.2) g/dL Albumin 2.8 L (3.5-5.0) g/dL Microbiology - Last 24 Hours (Table) 10/29/24 10:17 Blood Culture - Final Blood Assessment and Plan Assessment: Fall, with possible syncopal episode. Moderate aortic stenosis, currently being evaluated by cardiology. Nonobstructive coronary artery disease, to be managed medically. Acute kidney injury. Right lower lobe pneumonia. Anemia, chronic. Acute on chronic diastolic CHF. Acute on chronic hypoxemic respiratory failure, secondary to her pneumonia. Recent hospitalizations for pneumonia, secondary to stenotrophomonas and Serratia. Paroxysmal atrial fibrillation. Severe oxygen dependent and steroid-dependent COPD, with an FEV1 that is 30% of predicted. Chronic hypoxemic respiratory failure. Former heavy tobacco user. Hyperlipidemia. Plan: Plan dated November 01, 2024. The patient continues on supportive care, including, oxygen, heparin, updrafts, Symbicort, antibiotics, etc. All labs, x-rays, and medications are reviewed. We will continue to follow the patient, make recommendations along the way. Overall prognosis remains guarded. The patient remains a full code. He is being followed by cardiology, for his aortic stenosis. Certainly, given the severity of his COPD, he would be a high risk patient. We will continue to follow. Dictation was produced using [employer] software. Please excuse any grammatical, word or spelling errors. Plan dated November 02, 2024. The patient is seen today in room 360. He continues on nasal O2 at 2 L. He was on IV heparin. The patient is scheduled for left heart catheterization, and transesophageal echocardiogram today. Cardiology is currently evaluating his aortic stenosis. The patient is doing relatively well. He is sitting at the side of the bed. He is awake and alert. He has no specific complaints. All labs, x-rays, and medications are reviewed. We will continue to follow the patient, make recommendations along the way. Prognosis is guarded. Dictation was produced using [employer] software. Please excuse any grammatical, word or spelling errors. Plan dated November 03, 2024. The patient is resting comfortably in bed. He is on 3 L nasal cannula. No IV fluids. The patient had a cardiac catheterization, which revealed nonobstructive coronary disease. In addition, the patient has moderate aortic stenosis, not thought to be causing his syncopal episode. Both conditions, should be managed medically according to cardiology. Labs, x-rays, and medications are reviewed. We will continue to follow the patient, make recommendations. Prognosis is guarded. Dictation was produced using [employer] software. Please excuse any grammatical, word or spelling errors. Plan dated November 04, 2024. The patient is seen today in room 360. He continues on nasal O2 at 3 L. The patient was recently evaluated by cardiology, and was found to have nonobstructive coronary disease, and to be managed medically. In addition, the patient was found to have moderate aortic stenosis, not thought to cause the patient's syncope. Anyway, the patient is doing well. Labs, x-rays, medications are reviewed. We will continue to follow the patient. He is not receiving any IV fluids. Has been on cefepime for some time, and that will be discontinued. No additional recommendations at this time. Prognosis is guarded. Dictation was produced using [employer] software. Please excuse any grammatical, word or spelling errors. Time with Patient: Less than 30
[2024-11-04 11:46] LABS: Glucose,Whole Blood 208 mg/dL (70-110)
[2024-11-04] MEDS: METOPROLOL SUCCINATE (ER) 25 MG TAB.ER.24H PO SCH (12:31)
--- NOTE | 2024-11-04 13:20 | XR ---
EXAMINATION TYPE: XR chest 2V DATE OF EXAM: 11/04/2024 12:51 PM COMPARISON: 10/30/2024 CLINICAL INDICATION: Male, 79 years old with history of SOB being treated for pneumonia and chf; [facility] TECHNIQUE: XR chest 2V Frontal and lateral views of the chest. FINDINGS: Lungs/Pleura: Multifocal airspace opacities not significantly changed from prior.. No evidence of pne umothorax or pleural effusion. Pulmonary vascularity: Unremarkable. Heart/mediastinum: Cardiomediastinal silhouette is unremarkable. Musculoskeletal: Degenerative changes of the shoulder joints. Other findings: None IMPRESSION: Somewhat similar Multifocal airspace opacities concerning for pneumonia. Superimposed CHF may also be present. [facility], , 11/04/2024 1:18 PM
[2024-11-04 16:53] LABS: Glucose,Whole Blood 118 mg/dL (70-110)
--- NOTE | 2024-11-04 18:17 | P.DS ---
Providers Date of admission: 10/29/24 12:39 Attending physician: Beth Reed Consults: 10/29/24 12:57 Consult Physician Routine Consulting Provider: Bonnie Robison Consult Reason/Comments: Pneumonia Do you want consulting provider notified?: Yes 10/29/24 14:46 Consult Physician Routine Consulting Provider: Naima Reynoso Consult Reason/Comments: Pneumonia Do you want consulting provider notified?: Yes 10/29/24 15:47 Consult Physician Routine Consulting Provider: [facility] Consult Reason/Comments: Elevated troponin Do you want consulting provider notified?: Yes Primary care physician: Britni Peres Hospital Course: Discharge Diagnosis: Non-obstructive coronary disease Respiratory failure secondary to pneumonia. Hospital Course: 79-year-old male patient with a known history of atrial fibrillation, anticoagulated with Eliquis diabetes mellitus, hyperlipidemia, oxygen dependent chronic obstructive pulmonary disease who presents the hospital because of shortness of breath. Patient was discharged last week after being admitted for shortness of breath, was being treated for pneumonia, had bronchoscopy with lavage done that was positive for stenotrophomonas and was discharged on Bactrim. Patient stated he was doing well for the first couple of days after his discharge but on Friday he had a fall, stated that his legs gave up and he ended up on the floor. Patient was laying on the floor for 6 hours, had to call neighbor for help. Patient did not had any loss of consciousness. Following the fall patient was complaining of back pain, daughter came to check on him. Daughter noted that the patient was getting more weak and had a hard time ambulating. Patient was complaining of shortness of breath. There was no complaint of chest pain. Patient denies any palpitation. There is no complaint of orthopnea or PND. Denies any nausea, vomiting abdominal pain. Patient denies any complaint of dizziness. There is no complaint of headache. Patient is complaining of abdominal distention and swelling of lower extremities. Because of shortness of breath and increasing weakness, patient brought the ER. Initial lab work done in the ER showed WBC 16.09, hemoglobin 8, platelet count 156, sodium 133, potassium 4.9, BUN 14, creatinine 1.71, glucose 232, lactate 1.9 AST 27, ALT 51, UA done showed urine WBC 42, leukocyte esterase moderate amount, urine nitrate negative. EKG done in the ER showed heart rate of 110, no ST segment elevation or depression seen, no T-wave inversions seen. Chest x-ray done in the ER showed no discrete consolidation changes, cardiomegaly, pulm congestion and bilateral pleural effusions. Patient admitted to internal medicine service. During the course of the hospital stay, patient was evaluated and followed by Infectious Disease, Cardiology and Pulmonology. An inpatient cardiac catheterization was performed indicating calcified aortic valve and left main, mild disease in the LAD and mild to moderate aortic disease. Patient also undergone a transthoracic echocardiogram significant for normal ventricular size and systolic function, moderate mitral regurgitation and mild tricuspid regurgitation, moderate aortic stenosis with a mean gradient of 20 mmHg, heavily calcified with mild aortic regurgitation, calcified ascending thoracic aorta. Patient was managed medically for his cardiac symptoms as total occlusion of vessels were ruled out. Furthermore, patient was placed on IV Cefepime for a total of 7 days. At the time of discharge, patients laboratory work indicates wbc 6.20, Na 139, potassium 4.6. At time of discharge, patient hemodynamically stable. Advised to see primary care physician, cardiology, and pulmonology one week post discharge. Vital signs reviewed and stable GENERAL EXAM: Alert, pleasant 79-year-old male, on 3L nasal cannula and O2 sat is 100% HEAD: Normocephalic. EYES: Normal reaction of pupils, equal size. NOSE: Clear with pink turbinates. THROAT: No erythema or exudates. NECK: No masses, no JVD. CHEST: No chest wall deformity. LUNGS: Diminished breath sounds CVS: S1 and S2 normal with 3/6 systolic murmur over the aortic area ABDOMEN: Soft, No tenderness SKIN: No rashes CENTRAL NERVOUS SYSTEM: No focal deficits, tone is normal in all 4 extremities. EXTREMITIES: There is 1+ pedal edema, slightly better than yesterday. No clubbing, no cyanosis. Peripheral pulses are intact. A total of greater than 30 minutes were spent preparing this complex discarge summary. Patient was discharged on 11/04/2024. Plan - Discharge Summary New Discharge Prescriptions: Continue Budesonide-Formot 160-4.5 Mcg [Symbicort 160-4.5 Mcg Inhaler] 2 puff INHALATION RT-BID Zolpidem [Ambien] 5 mg PO HS PRN PRN Reason: Insomnia Empagliflozin [Jardiance] 10 mg PO DAILY Apixaban [Eliquis] 5 mg PO BID Ferrous Sulfate [Iron (65 MG Elemental)] 325 mg PO DAILY Vitamin B(Unknown) 1 tab PO DAILY Ipratropium-Albuterol Nebulize [Duoneb 0.5 mg-3 mg/3 ml Soln] 3 ml INHALATION RT-Q2H PRN each PRN Reason: Shortness Of Breath Or Wheezing Insulin Glargine,Hum.rec.anlog [Lantus Solostar Pen] 15 units SQ HS Furosemide [Lasix] 40 mg PO DAILY 30 Days #30 tab Famotidine [Pepcid] 20 mg PO BID Atorvastatin [Lipitor] 40 mg PO HS Amiodarone [Cordarone] 100 mg PO DAILY Insulin Aspart [NovoLOG Flexpen] See Protocol SQ AC-TID Tamsulosin [Flomax] 0.4 mg PO DAILY predniSONE 15 mg PO Q2D Metoprolol Tartrate [Lopressor] 12.5 mg PO BID Ipratropium-Albuterol Nebulize [Duoneb 0.5 mg-3 mg/3 ml Soln] 3 ml INHALATION RT-QID 30 Days #100 each predniSONE [Deltasone] 20 mg PO Q2D Sulfamethox-Tmp 800-160Mg [Bactrim DS 800-160 mg] 1 tab PO BID Discontinued Azithromycin [Zithromax] 250 mg PO MOWEFR Discharge Medication List Budesonide-Formot 160-4.5 Mcg [Symbicort 160-4.5 Mcg Inhaler] 2 puff INHALATION RT-BID 07/17/16 [History] Famotidine [Pepcid] 20 mg PO BID 11/26/23 [History] Zolpidem [Ambien] 5 mg PO HS PRN 11/26/23 [History] Apixaban [Eliquis] 5 mg PO BID 04/02/24 [History] Empagliflozin [Jardiance] 10 mg PO DAILY 04/02/24 [History] Amiodarone [Cordarone] 100 mg PO DAILY 09/22/24 [History] Atorvastatin [Lipitor] 40 mg PO HS 09/22/24 [History] Ferrous Sulfate [Iron (65 MG Elemental)] 325 mg PO DAILY 09/22/24 [History] Insulin Aspart [NovoLOG Flexpen] See Protocol SQ AC-TID 09/22/24 [History] Metoprolol Tartrate [Lopressor] 12.5 mg PO BID 09/22/24 [History] Tamsulosin [Flomax] 0.4 mg PO DAILY 09/22/24 [History] Vitamin B(Unknown) 1 tab PO DAILY 09/22/24 [History] predniSONE 15 mg PO Q2D 09/22/24 [History] Ipratropium-Albuterol Nebulize [Duoneb 0.5 mg-3 mg/3 ml Soln] 3 ml INHALATION RT-Q2H PRN each 09/27/24 [Rx] Ipratropium-Albuterol Nebulize [Duoneb 0.5 mg-3 mg/3 ml Soln] 3 ml INHALATION RT-QID 30 Days #100 each 09/27/24 [Rx] Insulin Glargine,Hum.rec.anlog [Lantus Solostar Pen] 15 units SQ HS 10/16/24 [History] predniSONE [Deltasone] 20 mg PO Q2D 10/16/24 [History] Furosemide [Lasix] 40 mg PO DAILY 30 Days #30 tab 10/26/24 [Rx] Sulfamethox-Tmp 800-160Mg [Bactrim DS 800-160 mg] 1 tab PO BID 10/29/24 [History] Follow up Appointment(s)/Referral(s): Britni Peres MD [Primary Care Provider] - 1-2 days (please call office when open to make follow up appointment ) Patient Instructions/Handouts: Heart Attack (DC), Heart Healthy Diet (ED), Bacterial Pneumonia (ED)
[2024-11-04 19:53] LABS: Glucose,Whole Blood 189 mg/dL (70-110)
--- NOTE | 2024-11-04 22:53 | P.PN ---
Subjective Progress Note Date: 11/04/24 Principal diagnosis: Reason for follow-up is fever Patient is a 79-year-old male with a past medical history significant for COPD atrial fibrillation diabetes mellitus hypertension hyperlipidemia osteoarthritis recent multiple admission to the hospital with pneumonia he did have a bronchoscopy and lavage on 10/21/2024 that was positive for stenotrophomonas discharged on Bactrim now presented the hospital for weakness and did have a follow-up to have low-grade fever and elevated white count prompting this consultation. Patient is status post cardiac cath with no ev idence of significant obstructive disease completed on 11/02/2024 On today's evaluation that is 11/04/2024,the patient remains to be afebrile, patient is on 3 L nasal cannula supplemental oxygen and denies any breathing slightly comfortably no chest pain or cough.Patient denies having any nausea or vomiting, no abdominal pain and no diarrhea has been reported. Patient white count 6.20, creatinine 1.09 blood urine culture have been negative Objective - Vital Signs Vital signs: Vital Signs Temp 97.8 F 11/04/24 12:00 Pulse 70 11/04/24 15:39 Resp 20 11/04/24 12:00 BP 117/63 11/04/24 12:00 Pulse Ox 97 11/04/24 12:00 FiO2 Intake & Output 11/03/24 11/04/24 11/04/24 18:59 06:59 18:59 Intake Total 270 560 458 Output Total 550 0 800 Balance -280 560 -342 Weight 82.1 kg Intake: IV 20 20 Invasive Line 2 20 20 Intake, IV Titration 100 Amount Cefepime 2 gm In Sodium 100 Chloride 0.9% 100 ml @ 25 mls/hr IVPB Q12HR [facility] Rx #:[id number] Oral 250 540 358 Output: Urine 550 0 800 Other: Voiding Method Urinal Urinal # Voids 1 # Bowel Movements 1 1 - Exam GENERAL DESCRIPTION: An elderly male l in a chair in no distress RESPIRATORY SYSTEM: Unlabored breathing , coarse breath sounds at bases HEART: S1 S2 regular rate and rhythm , ABDOMEN: Soft , no tenderness EXTREMITIES: No edema feet - Labs CBC & Chem 7: 11/04/24 06:32 11/04/24 06:32 Labs: Abnormal Lab Results - Last 24 Hours (Table) 11/03/24 11/03/24 11/04/24 Range/Units 16:47 20:15 06:18 RBC (4.40-5.60) 10*6/uL Hgb (13.0-17.0) g/dL Hct (39.6-50.0) % MCHC (32.0-37.0) g/dL Immature Gran # (0.00-0.04) 10*3/uL Chloride (98-107) mmol/L Carbon Dioxide (22-30) mmol/L Glucose (74-99) mg/dL POC Glucose (mg/dL) 114 H 206 H 148 H (70-110) mg/dL ALT (4-49) U/L Total Protein (6.3-8.2) g/dL Albumin (3.5-5.0) g/dL 11/04/24 11/04/24 11/04/24 Range/Units 06:32 06:32 11:39 RBC 3.13 L (4.40-5.60) 10*6/uL Hgb 9.1 L (13.0-17.0) g/dL Hct 29.4 L (39.6-50.0) % MCHC 31.0 L (32.0-37.0) g/dL Immature Gran # 0.06 H (0.00-0.04) 10*3/uL Chloride 112 H (98-107) mmol/L Carbon Dioxide 19 L (22-30) mmol/L Glucose 129 H (74-99) mg/dL POC Glucose (mg/dL) 208 H (70-110) mg/dL ALT 59 H (4-49) U/L Total Protein 5.4 L (6.3-8.2) g/dL Albumin 2.8 L (3.5-5.0) g/dL Microbiology - Last 24 Hours (Table) 10/29/24 10:17 Blood Culture - Final Blood Assessment and Plan (1) Leukocytosis Current Visit: Yes Status: Acute Code(s): D72.829 - ELEVATED WHITE BLOOD CELL COUNT, UNSPECIFIED SNOMED Code(s): 634577666 (2) Fever Current Visit: No Status: Acute Code(s): R50.9 - FEVER, UNSPECIFIED SNOMED Code(s): 319795070 (3) Penicillin allergy Current Visit: No Status: Acute Code(s): Z88.0 - ALLERGY STATUS TO PENICILLIN SNOMED Code(s): 78482388 (4) Renal insufficiency Current Visit: No Status: Acute Code(s): N28.9 - DISORDER OF KIDNEY AND URETER, UNSPECIFIED SNOMED Code(s): 846088975 (5) Oral thrush Current Visit: Yes Status: Acute Code(s): B37.0 - CANDIDAL STOMATITIS SNOMED Code(s): 32519771 Plan: 1patient presented hospital with weakness and did have a fall in this patient who was recently discharged from hospital after being treated for COPD his admission and there was concern for pneumonia status post bronchoscopy lavage was positive for stenotrophomonas now did have low-grade fever elevated white count chest x-ray has been mostly pulmonary vascular congestion further than consolidation has been complaining of some diarrhea however stool for C. difficile is negative urine is mildly positive with symptoms of frequency 2patient did have elevated procalcitonin and CRP 3 sputum for Gram stain and culture not collected, blood as well as urine culture so far negative 4the patient complaining of soreness in the mouth possible thrush patient has been started on nystatin swish and swallow and see clinical response 5patient did have improvement in his fever pattern white count has normalized, patient completed a course of cefepime which has been discontinued his morning by pulm will monitor closely off antibiotic Dictation was produced using [employer] dictation software. please excuse any grammatical, word or spelling errors. Time with Patient: Less than 30
[2024-11-05 00:23] VITALS: RESP 16
[2024-11-05 06:05] LABS: Glucose,Whole Blood 164 mg/dL (70-110)
[2024-11-05 09:50] VITALS: TEMP 97.2
[2024-11-05 11:42] VITALS: BP 93/54; PULSE 70
[2024-11-05 11:45] LABS: Glucose,Whole Blood 161 mg/dL (70-110)
--- NOTE | 2024-11-05 13:21 | P.DS ---
Providers Date of admission: 10/29/24 12:39 Attending physician: Beth Reed Consults: 10/29/24 12:57 Consult Physician Routine Consulting Provider: Bonnie Robison Consult Reason/Comments: Pneumonia Do you want consulting provider notified?: Yes 10/29/24 14:46 Consult Physician Routine Consulting Provider: Naima Reynoso Consult Reason/Comments: Pneumonia Do you want consulting provider notified?: Yes 10/29/24 15:47 Consult Physician Routine Consulting Provider: [facility] Consult Reason/Comments: Elevated troponin Do you want consulting provider notified?: Yes Primary care physician: Britni Peres [facility] Course: Discharge Diagnosis: Non-obstructive coronary disease Respiratory failure secondary to pneumonia. Hospital Course: 79-year-old male patient with a known history of atrial fibrillation, anticoagulated with Eliquis diabetes mellitus, hyperlipidemia, oxygen dependent chronic obstructive pulmonary disease who presents the hospital because of shortness of breath. Patient was discharged last week after being admitted for shortness of breath, was being treated for pneumonia, had bronchoscopy with lavage done that was positive for stenotrophomonas and was discharged on Bactrim. Patient stated he was doing well for the first couple of days after his discharge but on Friday he had a fall, stated that his legs gave up and he ended up on the floor. Patient was laying on the floor for 6 hours, had to call neighbor for help. Patient did not had any loss of consciousness. Following the fall patient was complaining of back pain, daughter came to check on him. Daughter noted that the patient was getting more weak and had a hard time ambulating. Patient on home oxygen of 3.5 L. Patient was complaining of shortness of breath. There was no complaint of chest pain. Patient denies any palpitation. There is no complaint of orthopnea or PND. Denies any nausea, vomiting abdominal pain. Patient denies any complaint of dizziness. There is no complaint of headache. Patient is complaining of abdominal distention and swelling of lower extremities. Because of shortness of breath and increasing weakness, patient brought the ER. Initial lab work done in the ER showed WBC 16.09, hemoglobin 8, platelet count 156, sodium 133, potassium 4.9, BUN 14, creatinine 1.71, glucose 232, lactate 1.9 AST 27, ALT 51, UA done showed urine WBC 42, leukocyte esterase moderate amount, urine nitrate negative. EKG done in the ER showed heart rate of 110, no ST segment elevation or depression seen, no T-wave inversions seen. Chest x-ray done in the ER showed no discrete consolidation changes, cardiomegaly, pulm congestion and bilateral pleural effusions. Patient admitted to internal medicine service. During the course of the hospital stay, patient was evaluated and followed by Infectious Disease, Cardiology and Pulmonology. An inpatient cardiac catheterization was performed indicating calcified aortic valve and left main, mild disease in the LAD and mild to moderate aortic disease. Patient also undergone a transthoracic echocardiogram significant for normal ventricular size and systolic function, moderate mitral regurgitation and mild tricuspid regurgitation, moderate aortic stenosis with a mean gradient of 20 mmHg, heavily calcified with mild aortic regurgitation, calcified ascending thoracic aorta. Patient was managed medically for his cardiac symptoms as total occlusion of vessels were ruled out. Furthermore, patient was placed on IV Cefepime for a total of 7 days. At the time of discharge, patients laboratory work indicates wbc 6.20, Na 139, potassium 4.6. At time of discharge, patient hemodynamically stable. To follow up as outpatient with PCP, cardiology, and pulmonology post discharge. Vital signs reviewed and stable GENERAL EXAM: Alert, pleasant 79-year-old male, on 3L nasal cannula and O2 sat is 100% HEAD: Normocephalic. EYES: Normal reaction of pupils, equal size. NOSE: Clear with pink turbinates. THROAT: No erythema or exudates. NECK: No masses, no JVD. CHEST: No chest wall deformity. LUNGS: Diminished breath sounds CVS: S1 and S2 normal with 3/6 systolic murmur over the aortic area ABDOMEN: Soft, No tenderness SKIN: No rashes CENTRAL NERVOUS SYSTEM: No focal deficits, tone is normal in all 4 extremities. EXTREMITIES: There is 1+ pedal edema, slightly better than yesterday. No clubbing, no cyanosis. Peripheral pulses are intact. A total of greater than 30 minutes were spent preparing this complex discarge summary. Patient was discharged on 11/05/2024. Plan - Discharge Summary New Discharge Prescriptions: Continue Budesonide-Formot 160-4.5 Mcg [Symbicort 160-4.5 Mcg Inhaler] 2 puff INHALATION RT-BID Zolpidem [Ambien] 5 mg PO HS PRN PRN Reason: Insomnia Empagliflozin [Jardiance] 10 mg PO DAILY Apixaban [Eliquis] 5 mg PO BID Ferrous Sulfate [Iron (65 MG Elemental)] 325 mg PO DAILY Vitamin B(Unknown) 1 tab PO DAILY Ipratropium-Albuterol Nebulize [Duoneb 0.5 mg-3 mg/3 ml Soln] 3 ml INHALATION RT-Q2H PRN each PRN Reason: Shortness Of Breath Or Wheezing Insulin Glargine,Hum.rec.anlog [Lantus Solostar Pen] 15 units SQ HS Furosemide [Lasix] 40 mg PO DAILY 30 Days #30 tab Famotidine [Pepcid] 20 mg PO BID Atorvastatin [Lipitor] 40 mg PO HS Amiodarone [Cordarone] 100 mg PO DAILY Insulin Aspart [NovoLOG Flexpen] See Protocol SQ AC-TID Tamsulosin [Flomax] 0.4 mg PO DAILY predniSONE 15 mg PO Q2D Metoprolol Tartrate [Lopressor] 12.5 mg PO BID Ipratropium-Albuterol Nebulize [Duoneb 0.5 mg-3 mg/3 ml Soln] 3 ml INHALATION RT-QID 30 Days #100 each predniSONE [Deltasone] 20 mg PO Q2D Sulfamethox-Tmp 800-160Mg [Bactrim DS 800-160 mg] 1 tab PO BID Discontinued Azithromycin [Zithromax] 250 mg PO MOWEFR Discharge Medication List Budesonide-Formot 160-4.5 Mcg [Symbicort 160-4.5 Mcg Inhaler] 2 puff INHALATION RT-BID 07/17/16 [History] Famotidine [Pepcid] 20 mg PO BID 11/26/23 [History] Zolpidem [Ambien] 5 mg PO HS PRN 11/26/23 [History] Apixaban [Eliquis] 5 mg PO BID 04/02/24 [History] Empagliflozin [Jardiance] 10 mg PO DAILY 04/02/24 [History] Amiodarone [Cordarone] 100 mg PO DAILY 09/22/24 [History] Atorvastatin [Lipitor] 40 mg PO HS 09/22/24 [History] Ferrous Sulfate [Iron (65 MG Elemental)] 325 mg PO DAILY 09/22/24 [History] Insulin Aspart [NovoLOG Flexpen] See Protocol SQ AC-TID 09/22/24 [History] Metoprolol Tartrate [Lopressor] 12.5 mg PO BID 09/22/24 [History] Tamsulosin [Flomax] 0.4 mg PO DAILY 09/22/24 [History] Vitamin B(Unknown) 1 tab PO DAILY 09/22/24 [History] predniSONE 15 mg PO Q2D 09/22/24 [History] Ipratropium-Albuterol Nebulize [Duoneb 0.5 mg-3 mg/3 ml Soln] 3 ml INHALATION RT-Q2H PRN each 09/27/24 [Rx] Ipratropium-Albuterol Nebulize [Duoneb 0.5 mg-3 mg/3 ml Soln] 3 ml INHALATION RT-QID 30 Days #100 each 09/27/24 [Rx] Insulin Glargine,Hum.rec.anlog [Lantus Solostar Pen] 15 units SQ HS 10/16/24 [History] predniSONE [Deltasone] 20 mg PO Q2D 10/16/24 [History] Furosemide [Lasix] 40 mg PO DAILY 30 Days #30 tab 10/26/24 [Rx] Sulfamethox-Tmp 800-160Mg [Bactrim DS 800-160 mg] 1 tab PO BID 10/29/24 [History] Follow up Appointment(s)/Referral(s): Skyler Hernandez MD [Medical Doctor] - 1 Week Britni Peres MD [Primary Care Provider] - 1-2 days (please call office when open to make follow up appointment ) Patient Instructions/Handouts: Heart Attack (DC), Heart Healthy Diet (ED), Bacterial Pneumonia (ED), Heart Catheterization (DC)
--- NOTE | 2024-11-05 13:23 | P.PN ---
Subjective Progress Note Date: 11/05/24 Principal diagnosis: Respiratory failure. This is a 79-year-old male patient with a known history of chronic obstructive pulmonary disease, oxygen dependent, paroxysmal atrial fibrillation anticoagulated with Eliquis, severe aortic stenosis, diabetes mellitus, with recent frequent admissions. He was discharged on October 26, 2024. He was brought back to the hospital yesterday October 29, 2024 after sustaining a fall at home at approximately 2:00 in the morning. He is unsure if he tripped and fell or if he passed out. He laid on the ground for 6 hours until a neighbor came by to help him up. He was too weak to stand and EMS was called. He denied any chest pain. No worsening shortness of breath, cough or congestion. No abdominal pain, nausea vomiting or diarrhea. EKG revealed sinus tachycardia. Chest x-ray revealed no discrete consolidative changes. There is cardiomegaly and pulmonary vascular congestion with bilateral pleural effusions. White count 11.2. Hemoglobin 9.2. Platelets 148. Sodium 138. Potassium 4.3. Bicarb 22. BUN 47. Creatinine 1.34. Troponin 0.124, 0.158. proBNP 5890. He is seen today in consultation in the emergency department. He is currently sitting up on a stretcher. Awake and alert oriented x 3. Unclear about what happened to him prior to being on the kitchen floor. He is currently maintaining good O2 saturation in the upper 90s on 3 L/min per nasal cannula. He is afebrile. Hemodynamically stable. Currently in sinus rhythm. Patient was seen today on 10/31/2024, breathing better easier, not in distress, and again the findings on his chest x-ray are consistent with inflammatory changes, patient is recovering from recent pneumonia involving the right lower lobe. Patient did not get readmitted because of pneumonia, his chief complaint was a complaint of passing out episode, and we believe that the passing of episo de is most likely cardiac in nature related to his aortic stenosis, cardiology has seen the patient, and addressing this issue may have to be considered for cardiac catheterization and for eventually TAVR procedure. Patient is back on his usual bronchodilators, he is empirically on antibiotics, however considering his procalcitonin level is elevated, will recommend that we continue antibiotics for now. His WBC count today is normal came down from 16.09 down to 7.36 today. Electrolytes are normal BUN is 37 creatinine 1.36, came down from 1.71 on admission Progress note dated November 01, 2024. The patient was seen today in room 360. He continues on nasal O2 at 3 L. He also has IV heparin running. The patient is awake and alert. No acute distress. No respiratory distress. He can speak in full sentences. The patient has had multiple admissions to this hospital in recent weeks. Current laboratory data includes a white count of 6.03, hemoglobin 8.1, hematocrit 25.8, and a platelet count of 136,000. Sodium 139, potassium 4, chlorides 112, CO2 21, BUN 27, creatinine 1.27. Glucose is 252. Calcium is 7.7. Progress note dated November 02, 2024. 79-year-old male, seen today in room 360. The patient is scheduled to have a left heart catheterization, and transesophageal echocardiogram today. He is on 2 L of oxygen. He is not receiving any IV fluids. Earlier today, he was on heparin, IV. His creatinine has corrected, and is down to 1.08. The patient is sitting at the side of the bed. He is awake and alert. No acute distress. White count is 5.9, hemoglobin 8.8, hematocrit 27.5, platelet count 138,000. PTT is 49.7. Sodium 139, potassium 4.5, chlorides 113, CO2 19, anion gap 7, BUN 20, creatinine 1.08. Glucose is 114. Calcium 8.3. Albumin 2.4. No recent chest x-ray to report. Culture data is all negative. Progress note dated November 03, 2024. 79-year-old male seen today in room 360. Patient is resting comfortably in bed. No acute distress. He is on 3 L. Not receiving any IV fluids. The patient was found to have nonobstructive coronary disease, medical management was recommended. In addition, he has moderate aortic stenosis, and cardiology felt that it was not causing his syncope. Clinically, the patient appears relatively stable. Current laboratory data includes a white count of 5.3, hemoglobin 8.7, hematocrit 27.1, and a platelet count of 166,000. Sodium 139, potassium 4.3, chlorides 111, CO2 22, BUN 15, creatinine 1.03. Glucose is 199. Calcium is 8.1. Albumin 2.5. Progress note dated November 04, 2024. 79-year-old male seen today in room 360. The patient continues on nasal O2 at 3 L. The patient was on cefepime, for right lower lobe pneumonia, but currently is doing well from the pulmonary standpoint. The patient was evaluated by cardiology, found to have nonobstructive coronary disease, and medical management was recommended. In addition, the patient had a transesophageal echocardiogram which showed moderate aortic stenosis. Again, cardiology thought the patient should be medically managed. Current labs include a white count of 6.2, hemoglobin 9.1, hematocrit 29.4, and a platelet count of 177,000. Sodium 139, potassium 4.6, chlorides 112, CO2 19, BUN 13, creatinine 1.09. Glucose is 129. Albumin is 2.8. Progress note dated November 05, 2024. 79-year-old male seen today in room 360. He is sitting in the chair, next to the hospital bed. He is currently on 3 L of oxygen. No IV fluids. He is hoping to be discharged soon. He states he is feeling well. No specific complaints. The patient was recently reevaluated by cardiology, and was found to have nonobstructive coronary disease, and, transesophageal echocardiogram, showed moderate aortic stenosis, both conditions to be managed medically. No new labs today other than her glucose of 161. Chest x-ray yesterday, shows some multifocal airspace opacities. This could be consistent with either pneumonia, or CHF. Objective - Vital Signs Vital signs: Vital Signs Temp 97.2 F L 11/05/24 09:00 Pulse 65 11/05/24 11:37 Resp 16 11/05/24 10:54 BP 93/54 11/05/24 10:54 Pulse Ox 100 11/05/24 11:27 FiO2 Intake & Output 11/04/24 11/05/24 11/05/24 18:59 06:59 18:59 Intake Total 576 Output Total 890 396 5498 Balance -374 -300 -1050 Weight 80 kg Intake: Intake, IV Titration 100 Amount Cefepime 2 gm In Sodium 100 Chloride 0.9% 100 ml @ 25 mls/hr IVPB Q12HR [facility] Rx #:[id number] Oral 476 Output: Urine 127 129 4363 Other: Voiding Method Urinal Urinal # Bowel Movements 1 - Exam No acute distress, oriented 3. Currently on 3 L of oxygen. No respiratory distress. Comfortable. HEENT examination is grossly unremarkable. Mucous membranes are moist. No oral lesions. Neck supple. Full range of motion. No adenopathy thyromegaly or neck vein distention. Cardiovascular examination reveals regular rhythm rate. S1-S2 normal. No S3 or S4. A 3/6 systolic murmur is noted. Lungs reveal scattered bilateral rhonchi and crackles. No wheezes. Breath sounds are equal bilaterally. Abdomen soft bowel sounds are heard. No masses or tenderness. Extremities are intact. No cyanosis or clubbing. Mild edema is present. Skin is without rash or lesion. Neurologic examination is brief but nonfocal. - Labs CBC & Chem 7: 11/04/24 06:32 11/04/24 06:32 Labs: Abnormal Lab Results - Last 24 Hours (Table) 11/04/24 11/04/24 11/05/24 Range/Units 16:42 19:51 06:02 POC Glucose (mg/dL) 118 H 189 H 164 H (70-110) mg/dL 11/05/24 Range/Units 11:44 POC Glucose (mg/dL) 161 H (70-110) mg/dL Assessment and Plan Assessment: Fall, with possible syncopal episode. Moderate aortic stenosis, currently being evaluated by cardiology. Nonobstructive coronary artery disease, to be managed medically. Acute kidney injury. Right lower lobe pneumonia. Anemia, chronic. Acute on chronic diastolic CHF. Acute on chronic hypoxemic respiratory failure, secondary to her pneumonia. Recent hospitalizations for pneumonia, secondary to stenotrophomonas and Serratia. Paroxysmal atrial fibrillation. Severe oxygen dependent and steroid-dependent COPD, with an FEV1 that is 30% of predicted. Chronic hypoxemic respiratory failure. Former heavy tobacco user. Hyperlipidemia. Plan: Plan dated November 01, 2024. The patient continues on supportive care, including, oxygen, heparin, updrafts, Symbicort, antibiotics, etc. All labs, x-rays, and medications are reviewed. We will continue to follow the patient, make recommendations along the way. Overall prognosis remains guarded. The patient remains a full code. He is being followed by cardiology, for his aortic stenosis. Certainly, given the severity of his COPD, he would be a high risk patient. We will continue to follow. Dictation was produced using Runnitation software. Please excuse any grammatical, word or spelling errors. Plan dated November 02, 2024. The patient is seen today in room 360. He continues on nasal O2 at 2 L. He was on IV heparin. The patient is scheduled for left heart catheterization, and transesophageal echocardiogram today. Cardiology is currently evaluating his aortic stenosis. The patient is doing relatively well. He is sitting at the side of the bed. He is awake and alert. He has no specific complaints. All labs, x-rays, and medications are reviewed. We will continue to follow the patient, make recommendations along the way. Prognosis is guarded. Dictation was produced using Terraf[employer] software. Please excuse any grammatical, word or spelling errors. Plan dated November 03, 2024. The patient is resting comfortably in bed. He is on 3 L nasal cannula. No IV fluids. The patient had a cardiac catheterization, which revealed nonobstr uctive coronary disease. In addition, the patient has moderate aortic stenosis, not thought to be causing his syncopal episode. Both conditions, should be managed medically according to cardiology. Labs, x-rays, and medications are reviewed. We will continue to follow the patient, make recommendations. Prognosis is guarded. Dictation was produced using [employer] software. Please excuse any grammatical, word or spelling errors. Plan dated November 04, 2024. The patient is seen today in room 360. He continues on nasal O2 at 3 L. The patient was recently evaluated by cardiology, and was found to have nonobstructive coronary disease, and to be managed medically. In addition, the patient was found to have moderate aortic stenosis, not thought to cause the patient's syncope. Anyway, the patient is doing well. Labs, x-rays, medications are reviewed. We will continue to follow the patient. He is not receiving any IV fluids. Has been on cefepime for some time, and that will be discontinued. No additional recommendations at this time. Prognosis is guarded. Dictation was produced using [employer] software. Please excuse any grammatical, word or spelling errors. Plan dated November 05, 2024. The patient was seen today in room 360. He is currently on 3 L of oxygen. No IV fluids. The patient is hoping to be discharged soon. He does have chronic shortness of breath, secondary to his COPD. That is unchanged. Transesophageal echocardiogram showed moderate aortic stenosis. Heart catheterization revealed nonobstructive coronary disease. Both conditions to be managed medically. No new labs today. We will continue to follow. The patient will follow-up in our office, as I believe he sees one of my partners. No additional recommendations are made. Prognosis is guarded. Dictation was produced using Runnitation software. Please excuse any grammatical, word or spelling errors. Time with Patient: Less than 30
--- NOTE | 2024-11-05 22:19 | P.PN ---
Subjective Progress Note Date: 11/05/24 Principal diagnosis: Reason for follow-up is fever Patient is a 79-year-old male with a past medical history significant for COPD atrial fibrillation diabetes mellitus hypertension hyperlipidemia osteoarthritis recent multiple admission to the hospital with pneumonia he did have a bronchoscopy and lavage on 10/21/2024 that was positive for stenotrophomonas discharged on Bactrim now presented the hospital for weakness and did have a follow-up to have low-grade fever and elevated white count prompting this consultation. Patient is status post cardiac cath with no ev idence of significant obstructive disease completed on 11/02/2024 On today's evaluation that is 11/05/2024, the patient continues to be afebrile, the patient is on 3 L nasal oxygen and breathing comfortably, the Pt denies having any chest pain did have occasional dry cough, the patient denies having a ny abdominal pain no vomiting or any diarrhea has been reported by the nursing staff. No new lab has been obtained today Objective - Vital Signs Vital signs: Vital Signs Temp 97.2 F L 11/05/24 09:00 Pulse 65 11/05/24 11:37 Resp 16 11/05/24 10:54 BP 93/54 11/05/24 10:54 Pulse Ox 100 11/05/24 11:27 FiO2 Intake & Output 11/04/24 11/05/24 11/05/24 18:59 06:59 18:59 Intake Total 576 Output Total 808 996 7050 Balance -374 -300 -1050 Weight 80 kg Intake: Intake, IV Titration 100 Amount Cefepime 2 gm In Sodium 100 Chloride 0.9% 100 ml @ 25 mls/hr IVPB Q12HR [facility] Rx #:[id number] Oral 476 Output: Urine 437 790 5850 Other: Voiding Method Urinal Urinal # Bowel Movements 1 - Exam GENERAL DESCRIPTION: An elderly male l in a chair in no distress RESPIRATORY SYSTEM: Unlabored breathing , coarse breath sounds at bases HEART: S1 S2 regular rate and rhythm , ABDOMEN: Soft , no tenderness EXTREMITIES: No edema feet - Labs CBC & Chem 7: 11/04/24 06:32 11/04/24 06:32 Labs: Abnormal Lab Results - Last 24 Hours (Table) 11/04/24 11/04/24 11/05/24 Range/Units 16:42 19:51 06:02 POC Glucose (mg/dL) 118 H 189 H 164 H (70-110) mg/dL 11/05/24 Range/Units 11:44 POC Glucose (mg/dL) 161 H (70-110) mg/dL Assessment and Plan (1) Leukocytosis Status: Acute Code(s): D72.829 - ELEVATED WHITE BLOOD CELL COUNT, UNSPECIFIED SNOMED Code(s): 040093186 (2) Fever Status: Acute Code(s): R50.9 - FEVER, UNSPECIFIED SNOMED Code(s): 844843233 (3) Penicillin allergy Status: Acute Code(s): Z88.0 - ALLERGY STATUS TO PENICILLIN SNOMED Code(s): 10028713 (4) Renal insufficiency Status: Acute Code(s): N28.9 - DISORDER OF KIDNEY AND URETER, UNSPECIFIED SNOMED Code(s): 497363593 (5) Oral thrush Status: Acute Code(s): B37.0 - CANDIDAL STOMATITIS SNOMED Code(s): 21574612 Plan: 1patient presented hospital with weakness and did have a fall in this patient who was recently discharged from hospital after being treated for COPD his admission and there was concern for pneumonia status post bronchoscopy lavage was positive for stenotrophomonas now did have low-grade fever elevated white count chest x-ray has been mostly pulmonary vascular congestion further than con solidation has been complaining of some diarrhea however stool for C. difficile is negative urine is mildly positive with symptoms of frequency 2patient did have elevated procalcitonin and CRP 3 sputum for Gram stain and culture not collected, blood as well as urine culture so far negative 4the patient complaining of soreness in the mouth possible thrush patient has been started on nystatin swish and swallow and see clinical response 5patient did have i resolution of fever white count has normalized, patient completed a course of cefepime which has been discontinued yesterday by pulm seems to be doing well no need for antibiotic on discharge Dictation was produced using [employer] dictation software. please excuse any grammatical, word or spelling errors. Time with Patient: Less than 30
== END 2024-11-05 13:33 | disposition home or self-care (01) | DRG 280 ==
LOC: EC 09:56 → 4SSUR 12:39 → 3SCARD 17:50
PROVIDERS: ADMIT Hospitalist; ATTEND Hospitalist
PROC: B211YZZ Fluoroscopy of Multiple Coronary Arteries using Other Contrast (ICD-10-PCS; 2024-11-02)
PROC: B246ZZ4 Ultrasonography of Right and Left Heart, Transesophageal (ICD-10-PCS; 2024-11-02)
PROC: 4A023N7 Measurement of Cardiac Sampling and Pressure, Left Heart, Percutaneous Approach (ICD-10-PCS; principal; 2024-11-02 12:00)
DX: I11.0 Hypertensive heart disease with heart failure (principal); I50.33 Acute on chronic diastolic (congestive) heart failure; I21.4 Non-ST elevation (NSTEMI) myocardial infarction; J96.21 Acute and chronic respiratory failure with hypoxia; R65.20 Severe sepsis without septic shock; J15.69 Pneumonia due to other Gram-negative bacteria; B37.0 Candidal stomatitis; I48.0 Paroxysmal atrial fibrillation; J44.0 Chronic obstructive pulmonary disease with (acute) lower respiratory infection; E11.9 Type 2 diabetes mellitus without complications; D64.9 Anemia, unspecified; I35.0 Nonrheumatic aortic (valve) stenosis; N17.9 Acute kidney failure, unspecified; I25.10 Atherosclerotic heart disease of native coronary artery without angina pectoris; T36.8X5A Adverse effect of other systemic antibiotics, initial encounter; E78.5 Hyperlipidemia, unspecified; T38.0X5A Adverse effect of glucocorticoids and synthetic analogues, initial encounter; I07.1 Rheumatic tricuspid insufficiency; I25.2 Old myocardial infarction; W18.30XA Fall on same level, unspecified, initial encounter; Y92.009 Unspecified place in unspecified non-institutional (private) residence as the place of occurrence of the external cause; N40.0 Benign prostatic hyperplasia without lower urinary tract symptoms; Z79.01 Long term (current) use of anticoagulants; Z79.51 Long term (current) use of inhaled steroids; Z79.52 Long term (current) use of systemic steroids; Z79.82 Long term (current) use of aspirin; Z79.84 Long term (current) use of oral hypoglycemic drugs; Z79.899 Other long term (current) drug therapy; Z86.73 Personal history of transient ischemic attack (TIA), and cerebral infarction without residual deficits; Z87.01 Personal history of pneumonia (recurrent); Z87.891 Personal history of nicotine dependence; Z88.0 Allergy status to penicillin; Z96.643 Presence of artificial hip joint, bilateral; Z99.81 Dependence on supplemental oxygen; Z98.42 Cataract extraction status, left eye; Z98.41 Cataract extraction status, right eye; Z87.19 Personal history of other diseases of the digestive system; X58.XXXA Exposure to other specified factors, initial encounter
CPT/HCPCS: 36415; 71045; 71046; 80048; 80053; 81001; 82550; 83036; 83605; 83735; 83880; 84145; 84484; 85025; 85027; 85610; 85652; 85730; 86140; 87040; 87086; 87324; 87449; 93005; 93308; 93312; 93320; 93325; 93458; 94640; 94760; 96361; 96365; 96366; 96367; 96375; 99285